=== PATIENT | male | born 2000 | race Caucasian/White ===

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

== ENCOUNTER → 2021-01-26 13:56 | Outpatient (REF) | payer MEDICAID, SELFPAY | LOC: HO.SL 13:56 | PROVIDERS: PCP General Practice; Visit Provider General Practice | DX: Z13.89 Encounter for screening for other disorder (principal) ==

== ENCOUNTER 2021-01-26 22:32 | Emergency (ER) | payer MEDICAID, SELFPAY ==
[2021-01-26 22:40] VITALS: BP 136/82; PULSE 108; RESP 18; TEMP 36.6; O2SAT 97; BMI 53.8
[2021-01-26 22:46] LABS: Glucose, Whole Blood 509 mg/dL (60-115)
[2021-01-26 23:22] LABS: COVID-19 Test Negative (Negative); IDNOW Serial# 08D9AD1C
[2021-01-26] MEDS: 0.9 % Sodium Chloride 1,000 ML 999 ML IVCONT (23:35)
--- NOTE | 2021-01-26 23:35 | ED_ITS ---
HPI - Psych General Chief Complaint: Psychiatric Symptoms <LAYA Duong - Last Filed: 01/27/21 00:33> Stated Complaint: si crisis <LAYA Duong Last Filed: 01/27/21 00:33> Time Seen by Provider: 01/26/21 23:04 <LAYA Duong Last Filed: 01/27/21 00:33> Source: patient and EMS <LAYA Duong Last Filed: 01/27/21 00:33> Mode of arrival: EMS <LAYA Duong Last Filed: 01/27/21 00:33> History of Present Illness HPI Narrative: 20-year-old male with a past medical history of anxiety, asthma, bipolar, depression, PTSD, diabetes noncompliant on medications, BIBA reporting suicidal ideations with plan to jump off of the 4th story balcony. PD was called after patient was found having verbal altercation with Mother pertaining to patients poor management of his diabetes. Patient also reports Patient homicidal ideations toward his mother at this time. Reports he is noncompliant with his metformin, states his glucose has been running in the high 300s. Reports polydipsia and polyuria. Denies fever, chills, cough, CP/SOB, abdominal pain, nausea/vomiting <LAYA Duong Last Filed: 01/27/21 00:33> Related Data Home Medications: Home Medications Medication Instructions Recorded Confirmed Invega Sustenna 234 mg IM Q28D 06/29/20 01/27/21 Previous Rx's Medication Instructions Recorded haloperidol 2 mg PO TID PRN 2 Days #45 tab 12/29/20 insulin glargine [Lantus U-100 80 unit SUBCUT BID #10 ml 12/29/20 Insulin] insulin lispro [Humalog U-100 10 unit SUBCUT QIDACHS #10 ml 12/29/20 Insulin] lorazepam [Ativan] 1 mg PO BID PRN #60 tab 12/29/20 metformin 500 mg PO DAILY@1700 #30 tab 12/29/20 <LAYA Duong Last Filed: 01/27/21 00:33> Allergies/Adverse Reactions: Allergies Allergy/AdvReac Type Severity Reaction Status Date / Time No Known Allergies Allergy Unverified 03/20/20 16:57 [No Known Allergies*] <LAYA Duong - Last Filed: 01/27/21 00:33> Review of Systems Review of Systems: Constitutional: No Fever, No Chills, No Fatigue, No Malaise Cardiovascular: No Chest Pain, No SOB Respiratory: No Cough, No Dyspnea Gastrointestinal: No Nausea, No Vomiting, No Diarrhea, No Constipation, No Abdominal pain Genitourinary: No Dysuria, No Urinary Frequency, No Hematuria, + Urinary Flow Changes Musculoskeletal: No joint pain, No Myalgias, No Joint Swelling Skin: No Skin Lesions, No rash Neuro: No Weakness, No Numbness, No Paresthesias, No Loss of Consciousness, No Dizziness, No Headache Psych: + Depression, + SI, +HI, No Social Issues Endocrine: + Polyuria, + Polydipsia <LAYA Duong - Last Filed: 01/27/21 00:33> Yes all other systems are reviewed and are negative <LAYA Duong - Last Filed: 01/27/21 00:33> [facility] Past Medical History Attestation statement: The following information was validated with the patient. <LAYA Duong - Last Filed: 01/27/21 00:33> Medical History: Medical History (Updated 01/27/21 @ 00:33 by LAYA Duong) Anxiety Asthma Bipolar disorder Bipolar disorder with psychotic features Concussion Depression Depression Diabetes mellitus, type 2 Diabetes type 2, uncontrolled PTSD (post-traumatic stress disorder) <LAYA Duong - Last Filed: 01/27/21 00:33> Social History Social History: Social History Household Members: Family Housing: Apartment Do you presently have visiting nurse or other home services: No Alcohol intake: never Patient Tobacco Use Status: Current everyday Tobacco user Tobacco use type: Cigarette Cigarette Packs Per Day: 1 Cigarettes Per Day: 20.0 Years Smoked: 3 Second Hand Smoke Exposure: No Substance Use Type: Marijuana Advance Directives: No Advance Directives Information Provided: No service: No Sexual orientation: did not discuss. <LAYA Duong - Last Filed: 01/27/21 00:33> Physical Exam Vital Signs: Vital Signs: Last Vital Signs Temp 97.8 F 01/26/21 22:40 Pulse 72 01/27/21 07:50 Resp 18 01/27/21 07:50 BP 145/74 H 01/27/21 07:50 Pulse Ox 95 01/27/21 07:50 Body Mass Index 53.8 <LAYA Duong - Last Filed: 01/27/21 00:33> Vital Signs: Last Vital Signs Temp 97.8 F 01/26/21 22:40 Pulse 72 01/27/21 07:50 Resp 18 01/27/21 07:50 BP 145/74 H 01/27/21 07:50 Pulse Ox 95 01/27/21 07:50 Body Mass Index 53.8 <Daiana Davidson [place] - Last Filed: 01/27/21 08:46> Const: General: cooperative, healthy appearing, comfortable and no acute distress <Claudia Mitchell [place] - Last Filed: 01/27/21 00:33> Orientation/consciousness: patient oriented x3 <LAYA Duong - Last Filed: 01/27/21 00:33> Limitations: no limitations <Claudia Mitchell [place] - Last Filed: 01/27/21 00:33> HENMT: Head: Yes normal to inspection and Yes atraumatic <Claudia Mitchell [place] - Last Filed: 01/27/21 00:33> Ears: hearing grossly normal bilaterally <Claudia Mitchell [place] - Last Filed: 01/27/21 00:33> General nose exam: Normal external nose present <Claudia Mitchell [place] - Last Filed: 01/27/21 00:33> Face and sinus: Yes normal facial exam <LAYA Duong - Last Filed: 01/27/21 00:33> Eyes: General: appearance normal, both eyes and all related structures <Claudia Mitchell [place] - Last Filed: 01/27/21 00:33> EOM: EOMs intact bilaterally <LAYA Duong - Last Filed: 01/27/21 00:33> Neck: Neck: Yes normal visual inspection and Yes no meningeal signs <LAYA Duong - Last Filed: 01/27/21 00:33> Resp: Effort & Inspection: normal respiratory effort <LAYA Duong - Last Filed: 01/27/21 00:33> Auscultation: clear to auscultation bilaterally, no crackles and no wheezes <LAYA Duong - Last Filed: 01/27/21 00:33> Cardio: Rate: regular rate <LAYA Duong Last Filed: 01/27/21 00:33> Heart sounds: S1 normal heart sound present and S2 normal heart sound present <LAYA Duong - Last Filed: 01/27/21 00:33> GI: Inspection: Yes normal to inspection <LAYA Duong - Last Filed: 01/27/21 00:33> Palpation (GI): Soft to palpation, nontender, no guarding and not rigid <LAYA Duong - Last Filed: 01/27/21 00:33> Skin: Rashes: no rashes <LAYA Duong - Last Filed: 01/27/21 00:33> Wounds: no wounds <LAYA Duong - Last Filed: 01/27/21 00:33> Neuro: General: patient oriented x3 and no meningeal signs <LAYA Duong - Last Filed: 01/27/21 00:33> Gait exam (Neuro): Normal gait present <LAYA Duong Last Filed: 01/27/21 00:33> Extrem: General: Yes normal to inspection <LAYA Duong - Last Filed: 01/27/21 00:33> Psych: Thought content: Suicidality present and Homicidality present <LAYA Duong - Last Filed: 01/27/21 00:33> Course Course Course Narrative: -mild leukocytosis of 11.1 with a pH of 7.4 bicarb chronically low, no anion gap -ALT chronically elevated, acetone negative > 10 units of IV insulin ordered -0100-- ED care transferred to Dr. William pending glucose monitoring/recheck, and MARIANO decker <LAYA Duong - Last Filed: 01/27/21 00:33> MDM - Psych MDM Narrative Medical decision making narrative: 20-year-old male with a past medical history of anxiety, asthma, bipolar, depression, PTSD, diabetes noncompliant on medications, BIBA reporting suicidal ideations with plan to jump off of the 4th story augustine. POC 509 upon ED arrival. Patient tachycardic to 108, NAD/nontoxic appearing, abdomen soft/nontender. Concern for hyperglycemia due to noncompliance vs DKA vs metabolic/infectious etiology. Plan: Labs, UA, 2L IVF, insulin, BHN evaluation <LAYA Duong - Last Filed: 01/27/21 00:33> Medical Records Attestation: I reviewed the patient's medical records. <LAYA Duong - Last Filed: 01/27/21 00:33> Lab Data Attestation: I reviewed the patient's lab results. <LAYA Duong - Last Filed: 01/27/21 00:33> Result diagrams: : 01/26/21 23:34 01/26/21 23:34 <LAYA Duong - Last Filed: 01/27/21 00:33> Labs: Lab Results 01/26/21 01/26/21 01/26/21 Range/Units 22:42 22:54 23:12 WBC (4.8-10.8) X10*3/uL RBC (4.60-5.80) X10*6/uL Hgb (14.0-18.0) g/dl Hct (42-52) % MCV (80-98) fL MCH (27.0-33.0) pg MCHC (31.0-36.0) g/dl RDW (11.0-16.0) % Plt Count (160-400) X10*3/uL MPV (9.4-12.4) fL Immature Gran % (Auto) (0.0-0.4) % Neut % (Auto) (45-73) % Lymph % (Auto) (20-40) % [place] % (Auto) (2-11) % Eos % (Auto) (0-4) % Baso % (Auto) (0-2) % Lymph # (Auto) (1.2-4.9) X10*3/uL [place] # (Auto) (0.1-1.2) X10*3/uL Eos # (Auto) (0.0-0.4) X10*3/uL Baso # (Auto) (0.0-0.2) X10*3/uL Abs Immat Gran (auto) (0.00-0.03) X10*3/uL Absolute Neuts (auto) (2.0-8.3) X10*3/uL Absolute Nucleated RBC (0.0-0.012) X10*3/uL Nucleated RBC % (auto) (0.0-0.2) /100WBC VBG pH (7.32-7.43) VBG pCO2 mmHg VBG pO2 mmHg VBG HCO3 (22-26) mmol/L VBG O2 Saturation % VBG Base Excess Sodium (135-145) mmol/L Potassium (3.3-5.1) mmol/L Chloride (96-108) mmol/L Carbon Dioxide (22-29) mmol/L Anion Gap (12-20) BUN (9-16) mg/dL Creatinine (0.5-1.4) mg/dL Estim Creat Clear Calc Estimated GFR POC Glucose 509 H* (60-115) mg/dL Random Glucose (60-115) mg/dL Calcium (8.4-10.2) mg/dL Magnesium (1.6-2.6) mg/dL Total Bilirubin (0.0-1.0) mg/dL Direct Bilirubin (0.0-0.5) mg/dL AST (5-37) U/L ALT (0-40) U/L Alkaline Phosphatase (39-117) U/L Total Protein (6.5-8.0) g/dL Albumin (3.5-5.0) g/dL Urine Opiates Screen Not Detected (Not Detect) Ur Barbiturates Screen Not Detected (Not Detect) Ur Phencyclidine Scrn Not Detected (Not Detect) Ur Amphetamines Screen Not Detected (Not Detect) U Benzodiazepines Scrn Not Detected (Not Detect) Urine Cocaine Screen Not Detected (Not Detect) U Marijuana (THC) Screen Not Detected (Not Detect) Acetone, Qual (Negative) COVID-19 ([facility]) Negative (Negative) COVID-19 Clin Com See Note 01/26/21 01/26/21 01/26/21 Range/Units 23:34 23:34 23:36 WBC 11.1 H (4.8-10.8) X10*3/uL RBC 5.47 (4.60-5.80) X10*6/uL Hgb 15.8 (14.0-18.0) g/dl Hct 45.2 (42-52) % MCV 82.6 (80-98) fL MCH 28.9 (27.0-33.0) pg MCHC 35.0 (31.0-36.0) g/dl RDW 12.3 (11.0-16.0) % Plt Count 242 (160-400) X10*3/uL MPV 11.6 (9.4-12.4) fL Immature Gran % (Auto) 0.4 (0.0-0.4) % Neut % (Auto) 56.1 (45-73) % Lymph % (Auto) 33.0 (20-40) % [place] % (Auto) 8.8 (2-11) % Eos % (Auto) 1.4 (0-4) % Baso % (Auto) 0.3 (0-2) % Lymph # (Auto) 3.7 (1.2-4.9) X10*3/uL [place] # (Auto) 1.0 (0.1-1.2) X10*3/uL Eos # (Auto) 0.2 (0.0-0.4) X10*3/uL Baso # (Auto) 0.0 (0.0-0.2) X10*3/uL Abs Immat Gran (auto) 0.04 H (0.00-0.03) X10*3/uL Absolute Neuts (auto) 6.3 (2.0-8.3) X10*3/uL Absolute Nucleated RBC 0.000 (0.0-0.012) X10*3/uL Nucleated RBC % (auto) 0.0 (0.0-0.2) /100WBC VBG pH 7.42 (7.32-7.43) VBG pCO2 30 mmHg VBG pO2 145 mmHg VBG HCO3 20 L (22-26) mmol/L VBG O2 Saturation 100.0 % VBG Base Excess Not Reportable Sodium 136 (135-145) mmol/L Potassium 4.0 (3.3-5.1) mmol/L Chloride 102 (96-108) mmol/L Carbon Dioxide 20 L (22-29) mmol/L Anion Gap 18 (12-20) BUN 14 (9-16) mg/dL Creatinine 1.24 (0.5-1.4) mg/dL Estim Creat Clear Calc 151.5 Estimated GFR > 60 POC Glucose (60-115) mg/dL Random Glucose 487 H* (60-115) mg/dL Calcium 9.6 D (8.4-10.2) mg/dL Magnesium 1.7 (1.6-2.6) mg/dL Total Bilirubin 0.3 (0.0-1.0) mg/dL Direct Bilirubin < 0.2 (0.0-0.5) mg/dL AST 25 (5-37) U/L ALT 47 H (0-40) U/L Alkaline Phosphatase 127 H (39-117) U/L Total Protein 7.2 (6.5-8.0) g/dL Albumin 4.0 (3.5-5.0) g/dL Urine Opiates Screen (Not Detect) Ur Barbiturates Screen (Not Detect) Ur Phencyclidine Scrn (Not Detect) Ur Amphetamines Screen (Not Detect) U Benzodiazepines Scrn (Not Detect) Urine Cocaine Screen (Not Detect) U Marijuana (THC) Screen (Not Detect) Acetone, Qual Negative (Negative) COVID-19 ([facility]) (Negative) COVID-19 Clin Com 01/27/21 01/27/21 01/27/21 Range/Units 02:05 04:18 07:28 WBC (4.8-10.8) X10*3/uL RBC (4.60-5.80) X10*6/uL Hgb (14.0-18.0) g/dl Hct (42-52) % MCV (80-98) fL MCH (27.0-33.0) pg MCHC (31.0-36.0) g/dl RDW (11.0-16.0) % Plt Count (160-400) X10*3/uL MPV (9.4-12.4) fL Immature Gran % (Auto) (0.0-0.4) % Neut % (Auto) (45-73) % Lymph % (Auto) (20-40) % [place] % (Auto) (2-11) % Eos % (Auto) (0-4) % Baso % (Auto) (0-2) % Lymph # (Auto) (1.2-4.9) X10*3/uL [place] # (Auto) (0.1-1.2) X10*3/uL Eos # (Auto) (0.0-0.4) X10*3/uL Baso # (Auto) (0.0-0.2) X10*3/uL Abs Immat Gran (auto) (0.00-0.03) X10*3/uL Absolute Neuts (auto) (2.0-8.3) X10*3/uL Absolute Nucleated RBC (0.0-0.012) X10*3/uL Nucleated RBC % (auto) (0.0-0.2) /100WBC VBG pH (7.32-7.43) VBG pCO2 mmHg VBG pO2 mmHg VBG HCO3 (22-26) mmol/L VBG O2 Saturation % VBG Base Excess Sodium (135-145) mmol/L Potassium (3.3-5.1) mmol/L Chloride (96-108) mmol/L Carbon Dioxide (22-29) mmol/L Anion Gap (12-20) BUN (9-16) mg/dL Creatinine (0.5-1.4) mg/dL Estim Creat Clear Calc Estimated GFR POC Glucose 231 H 295 H 336 H (60-115) mg/dL Random Glucose (60-115) mg/dL Calcium (8.4-10.2) mg/dL Magnesium (1.6-2.6) mg/dL Total Bilirubin (0.0-1.0) mg/dL Direct Bilirubin (0.0-0.5) mg/dL AST (5-37) U/L ALT (0-40) U/L Alkaline Phosphatase (39-117) U/L Total Protein (6.5-8.0) g/dL Albumin (3.5-5.0) g/dL Urine Opiates Screen (Not Detect) Ur Barbiturates Screen (Not Detect) Ur Phencyclidine Scrn (Not Detect) Ur Amphetamines Screen (Not Detect) U Benzodiazepines Scrn (Not Detect) Urine Cocaine Screen (Not Detect) U Marijuana (THC) Screen (Not Detect) Acetone, Qual (Negative) COVID-19 ([facility]) (Negative) COVID-19 Clin Com <LAYA Duong - Last Filed: 01/27/21 00:33> Lab Results 01/26/21 01/26/21 01/26/21 Range/Units 22:42 22:54 23:12 WBC (4.8-10.8) X10*3/uL RBC (4.60-5.80) X10*6/uL Hgb (14.0-18.0) g/dl Hct (42-52) % MCV (80-98) fL MCH (27.0-33.0) pg MCHC (31.0-36.0) g/dl RDW (11.0-16.0) % Plt Count (160-400) X10*3/uL MPV (9.4-12.4) fL Immature Gran % (Auto) (0.0-0.4) % Neut % (Auto) (45-73) % Lymph % (Auto) (20-40) % [place] % (Auto) (2-11) % Eos % (Auto) (0-4) % Baso % (Auto) (0-2) % Lymph # (Auto) (1.2-4.9) X10*3/uL [place] # (Auto) (0.1-1.2) X10*3/uL Eos # (Auto) (0.0-0.4) X10*3/uL Baso # (Auto) (0.0-0.2) X10*3/uL Abs Immat Gran (auto) (0.00-0.03) X10*3/uL Absolute Neuts (auto) (2.0-8.3) X10*3/uL Absolute Nucleated RBC (0.0-0.012) X10*3/uL Nucleated RBC % (auto) (0.0-0.2) /100WBC VBG pH (7.32-7.43) VBG pCO2 mmHg VBG pO2 mmHg VBG HCO3 (22-26) mmol/L VBG O2 Saturation % VBG Base Excess Sodium (135-145) mmol/L Potassium (3.3-5.1) mmol/L Chloride (96-108) mmol/L Carbon Dioxide (22-29) mmol/L Anion Gap (12-20) BUN (9-16) mg/dL Creatinine (0.5-1.4) mg/dL Estim Creat Clear Calc Estimated GFR POC Glucose 509 H* (60-115) mg/dL Random Glucose (60-115) mg/dL Calcium (8.4-10.2) mg/dL Magnesium (1.6-2.6) mg/dL Total Bilirubin (0.0-1.0) mg/dL Direct Bilirubin (0.0-0.5) mg/dL AST (5-37) U/L ALT (0-40) U/L Alkaline Phosphatase (39-117) U/L Total Protein (6.5-8.0) g/dL Albumin (3.5-5.0) g/dL Urine Opiates Screen Not Detected (Not Detect) Ur Barbiturates Screen Not Detected (Not Detect) Ur Phencyclidine Scrn Not Detected (Not Detect) Ur Amphetamines Screen Not Detected (Not Detect) U Benzodiazepines Scrn Not Detected (Not Detect) Urine Cocaine Screen Not Detected (Not Detect) U Marijuana (THC) Screen Not Detected (Not Detect) Acetone, Qual (Negative) COVID-19 ([facility]) Negative (Negative) COVID-19 Clin Com See Note 01/26/21 01/26/21 01/26/21 Range/Units 23:34 23:34 23:36 WBC 11.1 H (4.8-10.8) X10*3/uL RBC 5.47 (4.60-5.80) X10*6/uL Hgb 15.8 (14.0-18.0) g/dl Hct 45.2 (42-52) % MCV 82.6 (80-98) fL MCH 28.9 (27.0-33.0) pg MCHC 35.0 (31.0-36.0) g/dl RDW 12.3 (11.0-16.0) % Plt Count 242 (160-400) X10*3/uL MPV 11.6 (9.4-12.4) fL Immature Gran % (Auto) 0.4 (0.0-0.4) % Neut % (Auto) 56.1 (45-73) % Lymph % (Auto) 33.0 (20-40) % [place] % (Auto) 8.8 (2-11) % Eos % (Auto) 1.4 (0-4) % Baso % (Auto) 0.3 (0-2) % Lymph # (Auto) 3.7 (1.2-4.9) X10*3/uL [place] # (Auto) 1.0 (0.1-1.2) X10*3/uL Eos # (Auto) 0.2 (0.0-0.4) X10*3/uL Baso # (Auto) 0.0 (0.0-0.2) X10*3/uL Abs Immat Gran (auto) 0.04 H (0.00-0.03) X10*3/uL Absolute Neuts (auto) 6.3 (2.0-8.3) X10*3/uL Absolute Nucleated RBC 0.000 (0.0-0.012) X10*3/uL Nucleated RBC % (auto) 0.0 (0.0-0.2) /100WBC VBG pH 7.42 (7.32-7.43) VBG pCO2 30 mmHg VBG pO2 145 mmHg VBG HCO3 20 L (22-26) mmol/L VBG O2 Saturation 100.0 % VBG Base Excess Not Reportable Sodium 136 (135-145) mmol/L Potassium 4.0 (3.3-5.1) mmol/L Chloride 102 (96-108) mmol/L Carbon Dioxide 20 L (22-29) mmol/L Anion Gap 18 (12-20) BUN 14 (9-16) mg/dL Creatinine 1.24 (0.5-1.4) mg/dL Estim Creat Clear Calc 151.5 Estimated GFR > 60 POC Glucose (60-115) mg/dL Random Glucose 487 H* (60-115) mg/dL Calcium 9.6 D (8.4-10.2) mg/dL Magnesium 1.7 (1.6-2.6) mg/dL Total Bilirubin 0.3 (0.0-1.0) mg/dL Direct Bilirubin < 0.2 (0.0-0.5) mg/dL AST 25 (5-37) U/L ALT 47 H (0-40) U/L Alkaline Phosphatase 127 H (39-117) U/L Total Protein 7.2 (6.5-8.0) g/dL Albumin 4.0 (3.5-5.0) g/dL Urine Opiates Screen (Not Detect) Ur Barbiturates Screen (Not Detect) Ur Phencyclidine Scrn (Not Detect) Ur Amphetamines Screen (Not Detect) U Benzodiazepines Scrn (Not Detect) Urine Cocaine Screen (Not Detect) U Marijuana (THC) Screen (Not Detect) Acetone, Qual Negative (Negative) COVID-19 ([facility]) (Negative) COVID-19 Clin Com 01/27/21 01/27/21 01/27/21 Range/Units 02:05 04:18 07:28 WBC (4.8-10.8) X10*3/uL RBC (4.60-5.80) X10*6/uL Hgb (14.0-18.0) g/dl Hct (42-52) % MCV (80-98) fL MCH (27.0-33.0) pg MCHC (31.0-36.0) g/dl RDW (11.0-16.0) % Plt Count (160-400) X10*3/uL MPV (9.4-12.4) fL Immature Gran % (Auto) (0.0-0.4) % Neut % (Auto) (45-73) % Lymph % (Auto) (20-40) % [place] % (Auto) (2-11) % Eos % (Auto) (0-4) % Baso % (Auto) (0-2) % Lymph # (Auto) (1.2-4.9) X10*3/uL [place] # (Auto) (0.1-1.2) X10*3/uL Eos # (Auto) (0.0-0.4) X10*3/uL Baso # (Auto) (0.0-0.2) X10*3/uL Abs Immat Gran (auto) (0.00-0.03) X10*3/uL Absolute Neuts (auto) (2.0-8.3) X10*3/uL Absolute Nucleated RBC (0.0-0.012) X10*3/uL Nucleated RBC % (auto) (0.0-0.2) /100WBC VBG pH (7.32-7.43) VBG pCO2 mmHg VBG pO2 mmHg VBG HCO3 (22-26) mmol/L VBG O2 Saturation % VBG Base Excess Sodium (135-145) mmol/L Potassium (3.3-5.1) mmol/L Chloride (96-108) mmol/L Carbon Dioxide (22-29) mmol/L Anion Gap (12-20) BUN (9-16) mg/dL Creatinine (0.5-1.4) mg/dL Estim Creat Clear Calc Estimated GFR POC Glucose 231 H 295 H 336 H (60-115) mg/dL Random Glucose (60-115) mg/dL Calcium (8.4-10.2) mg/dL Magnesium (1.6-2.6) mg/dL Total Bilirubin (0.0-1.0) mg/dL Direct Bilirubin (0.0-0.5) mg/dL AST (5-37) U/L ALT (0-40) U/L Alkaline Phosphatase (39-117) U/L Total Protein (6.5-8.0) g/dL Albumin (3.5-5.0) g/dL Urine Opiates Screen (Not Detect) Ur Barbiturates Screen (Not Detect) Ur Phencyclidine Scrn (Not Detect) Ur Amphetamines Screen (Not Detect) U Benzodiazepines Scrn (Not Detect) Urine Cocaine Screen (Not Detect) U Marijuana (THC) Screen (Not Detect) Acetone, Qual (Negative) COVID-19 ([facility]) (Negative) COVID-19 Clin Com <LAYA Barker - Last Filed: 01/27/21 08:46> Discharge Plan Discharge Clinical Impression: Acute hyperglycemia, Suicidal ideations <LAYA Duong - Last Filed: 01/27/21 00:33> Prescriptions: No Action Invega Sustenna 234 mg/1.5 mL Syringe 234 mg IM Q28D RF: 0 Lantus U-100 Insulin 100 unit/mL Solution 80 unit subcut BID Qty: 10 RF: 0 insulin lispro [Humalog U-100 Insulin] 100 unit/mL Solution 10 unit subcut QIDACHS Qty: 10 RF: 0 metformin 500 mg Tablet Extended Release 24 Hr 500 mg PO DAILY@1700 Qty: 30 RF: 0 haloperidol 2 mg tablet 2 mg PO TID PRN (Reason: agitation) 2 Days Qty: 45 RF: 1 lorazepam [Ativan] 1 mg tablet 1 mg PO BID PRN (Reason: anxiety) Qty: 60 RF: 0 <LAYA Duong - Last Filed: 01/27/21 00:33> ED Observation ED Observation Progress Notes 1: Progress Note: 01/27/21 - 08:41 LAYA Barker - physician observation continued. Patient mildly hypertensive at 145/74 otherwise all other vitals are within normal limits. Patient had uneventful night. His blood glucose levels are being controlled with sub cutaneous insulin . Otherwise patient is currently awake, alert and oriented x3. Not in any acute distress. Reports thoughts of SI and HI and has a plan to jump off the 4th floor at home. He also states that he has many people at his house not want to kill him although he is very vague and does not want to say why. He also does not say the plan of harming the people of his home. He reports he also has another plan for self-harm but does not want to stated. Otherwise patient denies any additional complaints or concerns at this time and is currently awaiting crisis evaluation will continue to monitor. <LAYA Barker - Last Filed: 01/27/21 08:46>
[2021-01-26 23:39] LABS: MANUAL DIFF FLAG NO
[2021-01-26 23:40] LABS: Amphetamine Screen Urine Not Detected (Not Detect); Barbiturates, Urine Not Detected (Not Detect); Benzodiazepines Screen Urine Not Detected (Not Detect); Cannabinoid Screen Urine Not Detected (Not Detect); Cocaine Screen Urine Not Detected (Not Detect); Opiate Screen Urine Not Detected (Not Detect); Phencyclidine Screen Urine Not Detected (Not Detect)
[2021-01-26 23:40] LABS: Basophils Percent Auto 0.3 % (0-2); Eosinophils Absolute Auto 0.2 X10*3/uL (0.0-0.4); Eosinophils Percent Auto 1.4 % (0-4); Hematocrit 45.2 % (42-52); Hemoglobin 15.8 g/dl (14.0-18.0); Imm Gran Abs Auto 0.04 X10*3/uL (0.00-0.03); Imm Gran Pct Auto 0.4 % (0.0-0.4); Lymphocytes Absolute Auto 3.7 X10*3/uL (1.2-4.9); Mean Corpuscular Hemoglobin 28.9 pg (27.0-33.0); Mean Corpuscular Volume 82.6 fL (80-98); Mean Platelet Volume 11.6 fL (9.4-12.4); Monocytes Percent Auto 8.8 % (2-11); Neutrophils Absolute Auto 6.3 X10*3/uL (2.0-8.3); Neutrophils Percent Auto 56.1 % (45-73); Platelet Count 242 X10*3/uL (160-400); Red Blood Count 5.47 X10*6/uL (4.60-5.80); Red Cell Distribution Width 12.3 % (11.0-16.0); White Blood Count 11.1 X10*3/uL (4.8-10.8)
[2021-01-26 23:43] LABS: Venous Blood Gas Refer to POC result
[2021-01-26 23:44] LABS: VBG HCO3 20 mmol/L (22-26); VBG pCO2 30 mmHg; VBG pH 7.42 (7.32-7.43); VBG pO2 145 mmHg
[2021-01-26 23:56] LABS: Acetone, serum QL Negative (Negative)
[2021-01-27 00:12] LABS: Alanine Aminotransferase 47 U/L (0-40); Alkaline Phosphatase 127 U/L (39-117); Anion Gap 18 (12-20); Aspartate Amino Transferase 25 U/L (5-37); Bilirubin Direct < 0.2 mg/dL (0.0-0.5); Bilirubin Total 0.3 mg/dL (0.0-1.0); Blood Urea Nitrogen 14 mg/dL (9-16); Calcium 9.6 mg/dL (8.4-10.2); Carbon Dioxide 20 mmol/L (22-29); Chloride 102 mmol/L (96-108); Creatinine Clr Calc Pharmacy 151.5; Estimated Glomerular Filt Rate > 60; Glucose Random 487 mg/dL (60-115); Magnesium 1.7 mg/dL (1.6-2.6); Sodium 136 mmol/L (135-145); Total Protein 7.2 g/dL (6.5-8.0)
[2021-01-27] MEDS: 0.9 % Sodium Chloride 1,000 ML 999 ML IVCONT (00:55)
[2021-01-27] MEDS: Insulin Regular, Human 100 UNIT/ML 3 ML VIAL 10 UNIT IVPUSH (00:58)
--- NOTE | 2021-01-27 02:10 | PC.NURSE ---
PT'S POC 231 FOLLOWING IV REGULAR INSULIN AND 1 L NS BOLUS. SPOKE WITH MD ABOUT ADMINISTRATION OF LANTUS 80 UNITS, SHE WANTS TO PROCEED WITH SQ LANTUS.
[2021-01-27 02:11] LABS: Glucose, Whole Blood 231 mg/dL (60-115)
[2021-01-27] MEDS: Insulin Glargine,Hum.rec.anlog 100 UNIT/ML 10 ML VIAL 80 UNIT SUBCUT ×3 (02:28→20:40)
--- NOTE | 2021-01-27 02:37 | PC.NURSE ---
provided meal to patient, pt to remain in the main er until bed in pod available.
[2021-01-27 04:20] VITALS: PULSE 68; RESP 16; O2SAT 98
[2021-01-27 04:22] LABS: Glucose, Whole Blood 295 mg/dL (60-115)
--- NOTE | 2021-01-27 07:19 | PHA.MEDREC ---
Pharmacy Consult ? Medication Reconciliation Pharmacy has completed the medication reconciliation.
[2021-01-27 07:39] LABS: Glucose, Whole Blood 336 mg/dL (60-115)
[2021-01-27] MEDS: Insulin Lispro 100 UNIT/ML 3 ML VIAL 10 UNIT SUBCUT ×5 (07:39→20:52)
--- NOTE | 2021-01-27 07:40 | PC.NURSE ---
Pt alert and oriented x3. Pt states he is having thoughts of SI and HI and has a plan to jump off the 4th floor at home. He also states there are a lot of people in his home that he wants to kill. Pt refuses to state reason or if he has a plan to harm the people in his home. Pt states he has another plan to harm self but he will not say at this time. This abstract writer will contact crisis team for consult and place pt on 1:1 observation. Pt ate breakfast and is currently resting quietly.
[2021-01-27 07:50] VITALS: BP 145/74; PULSE 72; RESP 18; O2SAT 95
--- NOTE | 2021-01-27 09:53 | PC.NURSE ---
BHN consult submitted online.
--- NOTE | 2021-01-27 11:00 | PC.NURSE ---
called [facility] and spoke to lucinda to let them know that pt's is medically clear
[2021-01-27 11:02] LABS: Glucose, Whole Blood 297 mg/dL (60-115)
--- NOTE | 2021-01-27 11:11 | MHC.CARE ---
1045 Spoke to Emy, intact coordinator at [facility], about this patient's referral. She stated that it appears patient is not medically cleared, she can call with an ETA following clearance.
--- NOTE | 2021-01-27 13:18 | PC.NURSE ---
pt resting in the stretcher, calm and cooperative, pt still reports that he wants to hurt himself.
--- NOTE | 2021-01-27 13:34 | MHC.CARE ---
CARE team spoke with N, they are unable to send a clinician for several hours. Plan is for pt to remain in ED awaiting crisis assessment, as CARE Team is unable to conduct assessment due to pt being a part of the [facility] program.
[2021-01-27 14:06] VITALS: BP 119/59; PULSE 89; RESP 18; TEMP 36.5; O2SAT 95
--- NOTE | 2021-01-27 16:35 | PC.NURSE ---
called [facility] again to follow up on their arrival time, this rn was told sometimes this evening
[2021-01-27 18:12] LABS: Glucose, Whole Blood 396 mg/dL (60-115)
[2021-01-27 18:37] VITALS: BP 126/57; PULSE 74; RESP 20; O2SAT 95
[2021-01-27 20:26] VITALS: BP 139/70; PULSE 92; RESP 20; TEMP 36.5; O2SAT 97
[2021-01-27 20:28] LABS: Glucose, Whole Blood 451 mg/dL (60-115)
[2021-01-27] MEDS: LORazepam 1 MG TABLET PO (20:29)
[2021-01-27] MEDS: HaloperidoL 1 MG TABLET 2 MG PO (20:29)
--- NOTE | 2021-01-27 20:49 | PC.NURSE ---
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
[2021-01-27] MEDS: Nicotine Polacrilex 2 MG GUM BUCCAL (20:55)
[2021-01-28 02:12] VITALS: BP 110/50; PULSE 73; RESP 19; TEMP 36.7; O2SAT 94
[2021-01-28 02:12] LABS: Glucose, Whole Blood 262 mg/dL (60-115)
--- NOTE | 2021-01-28 06:37 | PC.NURSE ---
Patient slept through the night, no distress observed/reported, 2 am POC was 262, patient is awaiting to be seen by [facility] in the morning, behavior appropriate, patient needs some control on food consumption, VSS, will continue to monitor.
[2021-01-28 07:19] LABS: Glucose, Whole Blood 291 mg/dL (60-115)
[2021-01-28] MEDS: Insulin Lispro 100 UNIT/ML 3 ML VIAL 15 UNIT SUBCUT ×4 (07:21→22:01)
--- NOTE | 2021-01-28 07:32 | PC.NURSE ---
report taken from jacky guerra pt here for si statements, has had medical workup d/t high poc glucose yesterday. pt has been medically cleared, awaiting n eval. ambulating to bathroom w steady gait, asking this rn about when n clinician will be here to evaluate him, pt told that per previous shift rn, n would have clinician sometime today to see him, will f/u w n for time estimate. rr even/unlabored. ate all of breakfast, calm and cooperative w insulin admin. wctm.
[2021-01-28 08:29] VITALS: BP 123/55; PULSE 76; RESP 18; O2SAT 95
[2021-01-28] MEDS: Insulin Glargine,Hum.rec.anlog 100 UNIT/ML 10 ML VIAL 80 UNIT SUBCUT ×2 (08:55→21:56)
--- NOTE | 2021-01-28 13:23 | PC.NURSE ---
pt continues to await [facility] eval, taking medications as ordered. tolerating po w/o issue. given hardcover book in locker to read, checked for contraband.
[2021-01-28] MEDS: Nicotine Polacrilex 2 MG GUM BUCCAL ×2 (13:59→16:30)
[2021-01-28] MEDS: Acetaminophen 325 MG TABLET 650 MG PO (13:59)
--- NOTE | 2021-01-28 14:22 | PC.NURSE ---
[facility] at bedside for eval of pt
--- NOTE | 2021-01-28 14:32 | MHC.CARE ---
1300-Met with pt as he has grown agitated.? Pt expressed his frustration with the long wait and asks why he has waited so long and the reasons why.? CARE Team explained the reasons why he had been waiting as long as he has.? Pt stated that he and his Mother were engaged in an argument where she told him she no longer ?Needed? him ?for my money?.? He grew upset and was going to jump from the balcony.? Pt stated that he no longer feels suicidal and wishes to leave if he was not going to be seen in a timely fashion.? Pt vented his frustrations further, saying ?I should have jumped? before growing silent.? Pt would no longer engage.
[2021-01-28 16:24] VITALS: BP 134/76; PULSE 92; RESP 18; TEMP 36.5; O2SAT 97
[2021-01-28 17:02] LABS: Glucose, Whole Blood 523 mg/dL (60-115)
--- NOTE | 2021-01-28 17:09 | PC.NURSE ---
Pre-dinner POC initially 523, repeat POC 485. Provider aware, awaiting further orders at this time.
[2021-01-28 17:11] LABS: Glucose, Whole Blood 485 mg/dL (60-115)
[2021-01-28] MEDS: LORazepam 1 MG TABLET PO (18:01)
[2021-01-28 18:51] LABS: Glucose, Whole Blood 387 mg/dL (60-115)
[2021-01-28] MEDS: metFORMIN HCl ER 500 MG TAB.ER.24H PO (19:10)
[2021-01-28 21:46] LABS: Glucose, Whole Blood 379 mg/dL (60-115)
--- NOTE | 2021-01-28 22:25 | PC.NURSE ---
Patient POC was 379 @ 4733, scheduled 15 units of Humalog administered along with scheduled 80 units of Lantus, provider notified/ordered POC at 2300, will continue to monitor. i
[2021-01-28 23:05] LABS: Glucose, Whole Blood 391 mg/dL (60-115)
[2021-01-29 00:37] VITALS: RESP 18
--- NOTE | 2021-01-29 06:31 | PC.NURSE ---
Patient slept through the night, med compliant POC at baseline, needs lot of redirection related to food consumption, patient got extremely agitated when got woken up for POC check at 2300 per provider's order, patient was educated the importance of POC check instead patient threatens staff member if he gets woken up again in the middle of the night, PRN Haldol administered as ordered with + effect, will continue to monitor.
[2021-01-29] MEDS: Insulin Lispro 100 UNIT/ML 3 ML VIAL 15 UNIT SUBCUT ×4 (07:21→20:50)
[2021-01-29 07:23] LABS: Glucose, Whole Blood 239 mg/dL (60-115)
[2021-01-29] MEDS: Insulin Glargine,Hum.rec.anlog 100 UNIT/ML 10 ML VIAL 80 UNIT SUBCUT ×2 (09:00→20:50)
[2021-01-29 09:09] VITALS: BP 151/82; PULSE 88; RESP 17; TEMP 36.1; O2SAT 97
[2021-01-29 11:51] LABS: Glucose, Whole Blood 268 mg/dL (60-115)
[2021-01-29] MEDS: LORazepam 1 MG TABLET PO (11:57)
[2021-01-29] MEDS: HaloperidoL 1 MG TABLET 2 MG PO (13:31)
[2021-01-29 15:48] VITALS: BP 146/87; PULSE 77; RESP 15; TEMP 36.1; O2SAT 94
[2021-01-29] MEDS: Nicotine Polacrilex 2 MG GUM BUCCAL ×2 (16:12→18:24)
[2021-01-29 17:53] LABS: Glucose, Whole Blood 305 mg/dL (60-115)
[2021-01-29] MEDS: metFORMIN HCl ER 500 MG TAB.ER.24H PO (18:23)
[2021-01-29 20:48] LABS: Glucose, Whole Blood 432 mg/dL (60-115)
== END 2021-01-29 20:56 | disposition home or self-care (01) ==
PROVIDERS: Physician Assistant; Emergency Provider Student in an Organized Health Care Education/Training Program
DX: E11.65 Type 2 diabetes mellitus with hyperglycemia (principal); R45.851 Suicidal ideations; R45.850 Homicidal ideations; D72.829 Elevated white blood cell count, unspecified; R00.0 Tachycardia, unspecified; I95.9 Hypotension, unspecified; F31.9 Bipolar disorder, unspecified; F41.9 Anxiety disorder, unspecified; F43.10 Post-traumatic stress disorder, unspecified; F17.210 Nicotine dependence, cigarettes, uncomplicated; F12.90 Cannabis use, unspecified, uncomplicated; Z91.14 Patient's other noncompliance with medication regimen; Z20.822 Contact with and (suspected) exposure to COVID-19
CPT/HCPCS: 36415; 80048; 80076; 80307; 82009; 82803; 82947; 83735; 85025; 87635; 96360; 96372; 96374; 99285

== ENCOUNTER 2021-02-28 12:14 | Emergency (ER) | payer MEDICAID, SELFPAY ==
--- NOTE | ~2021-02-28 | XR_ITS ---
EXAMINATION: 1. RADIOGRAPHS RIGHT SHOULDER 2. RADIOGRAPHS RIGHT HAND CLINICAL INFORMATION: Limited shoulder range of motion. Punched wall. COMPARISON: Right shoulder x-ray August 30, 2018 and right hand x-rays November 20, 2018 TECHNIQUE: 3 views of the right shoulder and 3 views of the right hand were obtained. FINDINGS: Right shoulder: Visualized portion of the proximal right humerus demonstrate no fracture. Humeral head demonstrates good articulation with the glenoid fossa. Unremarkable acromioclavicular joint. Visualized right-sided ribs and lung parenchyma are also unremarkable. Right hand: Visualized portion of the distal radius and ulna demonstrate no fracture. Carpal rows are well aligned without carpal bone fracture. No metacarpal or phalangeal fracture. No focal soft tissue swelling of the hand. No radiopaque foreign body. No appreciable degenerative changes. XR/XR hand RT 2V IMPRESSION: No gross abnormality of the right shoulder or right hand.
--- NOTE | ~2021-02-28 | XR_ITS ---
EXAMINATION: 1. RADIOGRAPHS RIGHT SHOULDER 2. RADIOGRAPHS RIGHT HAND CLINICAL INFORMATION: Limited shoulder range of motion. Punched wall. COMPARISON: Right shoulder x-ray August 30, 2018 and right hand x-rays November 20, 2018 TECHNIQUE: 3 views of the right shoulder and 3 views of the right hand were obtained. FINDINGS: Right shoulder: Visualized portion of the proximal right humerus demonstrate no fracture. Humeral head demonstrates good articulation with the glenoid fossa. Unremarkable acromioclavicular joint. Visualized right-sided ribs and lung parenchyma are also unremarkable. Right hand: Visualized portion of the distal radius and ulna demonstrate no fracture. Carpal rows are well aligned without carpal bone fracture. No metacarpal or phalangeal fracture. No focal soft tissue swelling of the hand. No radiopaque foreign body. No appreciable degenerative changes. XR/XR shoulder RT min 2V IMPRESSION: No gross abnormality of the right shoulder or right hand.
[2021-02-28 12:50] VITALS: BP 136/48; PULSE 84; RESP 18; TEMP 37; O2SAT 97; BMI 53.1
--- NOTE | 2021-02-28 14:00 | ED.EXTPRO ---
HPI - Extremity Problem General Chief complaint: Extremity Injury, Upper Stated complaint: rt arm & shoulder pain Time Seen by Provider: 02/28/21 12:31 Source: patient Mode of arrival: ambulatory History of Present Illness HPI Narrative: 20-year-old male with past medical history of anxiety, asthma, bipolar, depression, diabetes, PTSD, presenting to the ED complaining of right hand and shoulder pain s/p punching a wooden door on Tuesday. Also reports left foot pain x a while secondary to standing on feet and walking for long periods of time. Denies fever, chills, numbness, tingling, weakness MD Complaint: extremity pain and extremity swelling Related Data Home Medications Medication Instructions Recorded Confirmed paliperidone palmitate 234 mg/1.5 234 mg IM Q28D 06/29/20 01/27/21 mL intramuscular syringe (Invega Sustenna) Previous Rx's Medication Instructions Recorded haloperidol 2 mg tablet 2 mg PO TID PRN 2 Days #45 tab 12/29/20 insulin glargine 100 unit/mL 80 unit SUBCUT BID #10 ml 12/29/20 subcutaneous solution (Lantus U-100 Insulin) insulin lispro 100 unit/mL 10 unit SUBCUT QIDACHS #10 ml 12/29/20 subcutaneous solution (Humalog U-100 Insulin) lorazepam 1 mg tablet (Ativan) 1 mg PO BID PRN #60 tab 12/29/20 metformin 500 mg tablet,extended 500 mg PO DAILY@1700 #30 tab 12/29/20 release 24 hr acetaminophen 500 mg tablet 500 mg PO Q6H PRN #20 tab 02/28/21 (Tylenol Extra Strength) naproxen 500 mg tablet 500 mg PO BID PRN 10 Days #20 tab 02/28/21 Allergies Allergy/AdvReac Type Severity Reaction Status Date / Time No Known Allergies Allergy Verified 02/28/21 12:50 [No Known Allergies*] Review of Systems Review of Systems: Constitutional: No Fever, No Chills ENT/Mouth: No Ear Pain, No Nasal Congestion, No sore throat Cardiovascular: No Chest Pain, No SOB Respiratory: No Cough Gastrointestinal: No Nausea, No Vomiting, No Abdominal pain Musculoskeletal: +joint pain, No Myalgias, + Joint Swelling Skin: No Skin Lesions, No rash Neuro: No Weakness, No Numbness, No Paresthesias Yes all other systems are reviewed and are negative PMFSH Past Medical History Attestation statement: The following information was validated with the patient. Medical History (Updated 02/28/21 @ 14:01 by LAYA Duong) Anxiety Asthma Bipolar disorder Bipolar disorder with psychotic features Concussion Depression Depression Diabetes mellitus, type 2 Diabetes type 2, uncontrolled PTSD (post-traumatic stress disorder) Social History Social History Household Members: Family Housing: Apartment Do you presently have visiting nurse or other home services: No Alcohol intake: never Patient Tobacco Use Status: Current everyday Tobacco user Tobacco use type: Cigarette Cigarette Packs Per Day: 1 Cigarettes Per Day: 20.0 Years Smoked: 3 Second Hand Smoke Exposure: No Substance Use Type: Marijuana Advance Directives: No Advance Directives Information Provided: No service: No Sexual orientation: did not discuss. Physical Exam Vital Signs: Vital Signs: Last Vital Signs Temp 98.6 F 02/28/21 12:50 Pulse 84 02/28/21 12:50 Resp 18 02/28/21 12:50 BP 136/48 L 02/28/21 12:50 Pulse Ox 97 02/28/21 12:50 Body Mass Index 53.1 Const: General: cooperative, healthy appearing and no acute distress Orientation/consciousness: patient oriented x3 Limitations: no limitations HENMT: Head: Yes normal to inspection Ears: hearing grossly normal bilaterally General nose exam: Normal external nose present Face and sinus: Yes normal facial exam Eyes: General: appearance normal, both eyes and all related structures EOM: EOMs intact bilaterally Neck: Neck: Yes normal visual inspection Resp: Effort & Inspection: normal respiratory effort and no respiratory distress Cardio: Rate: regular rate Peripheral pulses: dorsalis pedis present Skin: Rashes: no rashes Wounds: no wounds Neuro: General: patient oriented x3 Gait exam (Neuro): Normal gait present Extrem: Other: Mild swelling to right hand, diffuse tenderness. FROM intact. Finger to thumb opposition intact. Right shoulder and trapezius with tenderness to palpation & decreased abduction/external rotation secondary to pain. Neurovascular intact distally. Distal plantar aspect of left foot with mild tenderness to palpation. No erythema, no fluctuance/induration, no deformity. No cellulitis. Full range of motion/NV intact Course Course Course Narrative: XR shoulder RT min 2V / XR hand RT 2V IMPRESSION: No gross abnormality of the right shoulder or right hand.? MDM - Extremity (Nontraumatic) MDM Narrative Medical decision making narrative: 20-year-old male with past medical history of anxiety, asthma, bipolar, depression, diabetes, PTSD, presenting to the ED complaining of right hand and shoulder pain s/p punching a wooden door on Tuesday. On exam VS, NAD, physical exam as above. Rule out fracture. Likely MSK pain. Plan: X-rays Discharge Plan Discharge Clinical Impression: Hand pain, right, Right shoulder pain, Foot pain, left Patient Disposition: Home, Self-Care Instructions: Arthralgia (ED) Additional Instructions: Your x-rays are unremarkable Ice and elevate painful areas. He should by insoles for your shoes Your pain is likely musculoskeletal Naproxen as an anti-inflammatory / pain medication, take with food In addition take Tylenol at home If symptoms persist or worsen, pain becomes unbearable, return to the ED, please follow-up with your primary care doctor Prescriptions: New acetaminophen [Tylenol Extra Strength] 500 mg tablet 500 mg PO Q6H PRN (Reason: pain or fever) Qty: 20 RF: 0 naproxen 500 mg tablet 500 mg PO BID PRN (Reason: pain) 10 Days Qty: 20 RF: 0 No Action Invega Sustenna 234 mg/1.5 mL Syringe 234 mg IM Q28D RF: 0 Lantus U-100 Insulin 100 unit/mL Solution 80 unit subcut BID Qty: 10 RF: 0 insulin lispro [Humalog U-100 Insulin] 100 unit/mL Solution 10 unit subcut QIDACHS Qty: 10 RF: 0 metformin 500 mg Tablet Extended Release 24 Hr 500 mg PO DAILY@1700 Qty: 30 RF: 0 haloperidol 2 mg tablet 2 mg PO TID PRN (Reason: agitation) 2 Days Qty: 45 RF: 1 lorazepam [Ativan] 1 mg tablet 1 mg PO BID PRN (Reason: anxiety) Qty: 60 RF: 0 Referrals: Gricel Daniel MD [Primary Care Provider] - 1 week (As needed) Leonardo Winters MD [Physician] - 1 week (As needed) Interventions: ED Discharge Assessment Last Done: 02/28/21 14:08 Discharge Date/Time: 02/28/21 14:11
== END 2021-02-28 14:11 | disposition home or self-care (01) ==
PROVIDERS: Emergency Provider Emergency Medicine; PCP General Practice
DX: M79.641 Pain in right hand (principal); M25.511 Pain in right shoulder; M79.672 Pain in left foot; E11.9 Type 2 diabetes mellitus without complications; Z79.4 Long term (current) use of insulin
CPT/HCPCS: 73030; 73120; 99283

== ENCOUNTER → 2021-07-07 13:03 | Outpatient (BNVA) | payer MEDICAID, SELFPAY | PROVIDERS: PCP General Practice; Visit Provider Urology | DX: N47.1 Phimosis (principal) | CPT/HCPCS: 99202 ==

== ENCOUNTER 2021-07-29 17:51 | Inpatient (IN) | payer OTHER, MEDICAID, SELFPAY ==
--- NOTE | ~2021-07-29 | XR_ITS ---
EXAMINATION: XR hand RT 2V CLINICAL INFORMATION: Trauma COMPARISON: Hand radiographs 02/20/2021 TECHNIQUE: 3 views of the hand XR/XR hand RT 2V FINDINGS/IMPRESSION: No fracture or dislocation. Joint spaces are maintained. 7 mm of negative ulnar variance. Soft tissues are unremarkable.
[2021-07-29 18:18] VITALS: BP 149/85; PULSE 85; PULSE 97; RESP 16; TEMP 36.3; O2SAT 97; BMI 50.5
--- NOTE | 2021-07-29 18:21 | ED_ITS ---
HPI - General Adult General Chief complaint: Psychiatric Symptoms <Omari Mendez MD - Last Filed: 07/29/21 18:25> Stated complaint: crisis <Omari Mendez MD - Last Filed: 07/29/21 18:25> Time Seen by Provider: 07/29/21 18:00 <Omari Mendez MD - Last Filed: 07/29/21 18:25> Source: patient, EMS and old records reviewed <Omari Mendez MD - Last Filed: 07/29/21 18:25> History of Present Illness HPI narrative: Patient with a history of depression and bipolar disorder as well as insulin-dependent diabetes. Today complains of depression with suicidal thoughts. He states he was feeling suicidal earlier but not necessarily now. He states he tried to run on from car but did not get hit. He also complains of right hand pain after punching a tree. He states he is feeling anxious. He has not eaten anything today. He is on insulin and typically takes 120 units of Lantus in the morning. He takes 22 units of Humalog with each meal. No recent fevers chills or medical complaints. <Omari Mendez MD - Last Filed: 07/29/21 18:25> Related Data Home medications: Home Medications Medication Instructions Recorded Confirmed divalproex 500 mg 1,000 mg PO BEDTIME 07/29/21 07/29/21 tablet,delayed release divalproex 500 mg 500 mg PO QAM 07/29/21 07/29/21 tablet,delayed release haloperidol 5 mg tablet 5 mg PO QAM 07/29/21 07/29/21 haloperidol 5 mg tablet 10 mg PO BEDTIME 07/29/21 07/29/21 insulin degludec 200 unit/mL 160 unit SUBCUT DAILY 07/29/21 07/29/21 (3 mL) subcutaneous pen (Tresiba FlexTouch U-200 insulin) insulin lispro 100 unit/mL See Protocol SUBCUT QIDACHS 07/29/21 07/29/21 subcutaneous solution (Humalog U-100 Insulin) lorazepam 1 mg tablet 1 tab PO BID PRN 07/29/21 07/29/21 <Omari Mendez MD - Last Filed: 07/29/21 18:25> Allergies/adverse reactions: Allergies Allergy/AdvReac Type Severity Reaction Status Date / Time No Known Allergies Allergy Verified 07/07/21 13:26 [No Known Allergies*] <Omari Mendez MD - Last Filed: 07/29/21 18:25> Review of Systems Verdana 4l Constitutional: Verdana 4d Comments: Verdana 4d Verdana 4d Verdana 4d No fevers or chills Verdana 4d Verdana 4Il <Omari Mendez MD - Last Filed: 07/29/21 18:25> Verdana 4d Verdana 4l Cardiovascular: Verdana 4d Comments: Verdana 4d Verdana 4d Verdana 4d No chest pain Verdana 4d Verdana 4Il <Omari Mendez MD - Last Filed: 07/29/21 18:25> Verdana 4d Verdana 4l Respiratory: Verdana 4d Verdana 4d Comments: Verdana 4d Verdana 4d No dyspnea or cough Verdana 4d Verdana 4Il <Omari Mendez MD - Last Filed: 07/29/21 18:25> Verdana 4d Verdana 4l Gastrointestinal: Verdana 4d Comments: Verdana 4d Verdana 4d Verdana 4d No nausea vomiting diarrhea or abdominal pain Verdana 4d Verdana 4Il <Omari Mendez MD - Last Filed: 07/29/21 18:25> Verdana 4d Verdana 4l Musculoskeletal: Verdana 4d Comments: Verdana 4d Verdana 4d Verdana 4d Right hand pain after punching a tree several times Verdana 4d Verdana 4Il <Omari Mendez MD - Last Filed: 07/29/21 18:25> Verdana 4d Verdana 4l Integumentary/Breasts: Verdana 4d Comments: Verdana 4d Verdana 4d Verdana 4d No bleeding or lacerations or rashes Verdana 4d Verdana 4Il <Omari Mendez MD - Last Filed: 07/29/21 18:25> Verdana 4d Verdana 4l Neurologic: Verdana 4d Verdana 4d Comments: Verdana 4d Verdana 4d No weakness numbness or paresthesias Verdana 4d Verdana 4Il <Omari Mendez MD - Last Filed: 07/29/21 18:25> Verdana 4d Verdana 4l Psychiatric: Verdana 4d Verdana 4d Comments: Verdana 4d Verdana 4d Depression with suicidal ideation consisting of attempt to throw himself in front of a moving car Verdana 4d Verdana 4Il <Omari Mendez MD - Last Filed: 07/29/21 18:25> Verdana 4d Verdana 4l Endocrine: Verdana 4d Verdana 4d Comments: Verdana 4d Verdana 4d Insulin-depend ent diabetes Verdana 4d Verdana 4Il <Omari Mendez MD - Last Filed: 07/29/21 18:25> Verdana 4d PMF Past Medical History Medical History: Medical History (Updated 07/30/21 @ 10:51 by LAYA Paiz) Anxiety Asthma Bipolar disorder Bipolar disorder with psychotic features Concussion Depression Depression Diabetes mellitus, type 2 Diabetes type 2, uncontrolled PTSD (post-traumatic stress disorder) <Omari Mendez MD - Last Filed: 07/29/21 18:25> Social History Social History: Social History Household Members: Family Housing: Apartment Do you presently have visiting nurse or other home services: No Alcohol intake: never Patient Tobacco Use Status: Current everyday Tobacco user Tobacco use type: Cigarette Cigarette Packs Per Day: 1 Cigarettes Per Day: 20.0 Years Smoked: 3 Second Hand Smoke Exposure: No Substance Use Type: Marijuana Advance Directives: No Advance Directives Information Provided: No service: No Sexual orientation: did not discuss. <Omari Mendez MD - Last Filed: 07/29/21 18:25> Physical Exam Verdana 4l Vital Signs: Verdana 4d Verdana 4d Vital Signs: Verdana 4d Verdana 4Bd Last Vital Signs Verdana 4d Rn Dermatology New 4d Rn Dermatology New 4d Temp 97.9 F 07/30/21 07:52 Rn Dermatology New 4d Pulse 80 07/30/21 07:52 Rn Dermatology New 4d Resp 12 07/30/21 07:52 BP 130/68 07/30/21 07:52 Pulse Ox 94 07/30/21 07:52 BMI result Body Mass Index 50.5 <Omari Mendez MD - Last Filed: 07/29/21 18:25> Vital Signs: Last Vital Signs Temp 97.9 F 07/30/21 07:52 Pulse 80 07/30/21 07:52 Resp 12 07/30/21 07:52 BP 130/68 07/30/21 07:52 Pulse Ox 94 07/30/21 07:52 BMI result Body Mass Index 50.5 <Pily Henry MD - Last Filed: 07/30/21 07:48> Vital Signs: Last Vital Signs Temp 97.9 F 07/30/21 07:52 Pulse 80 07/30/21 07:52 Resp 12 07/30/21 07:52 BP 130/68 07/30/21 07:52 Pulse Ox 94 07/30/21 07:52 BMI result Body Mass Index 50.5 <LAYA Paiz - Last Filed: 07/30/21 10:51> Const: Other: Awake alert no acute distress. Cooperative at this time <Omari Mendez MD - Last Filed: 07/29/21 18:25> Resp: Other: Clear and equal bilaterally without wheezes rales or rhonchi <Omari Mendez MD - Last Filed: 07/29/21 18:25> Cardio: Other: Regular rate and rhythm without murmurs rubs or gallops <Omari Mendez MD - Last Filed: 07/29/21 18:25> GI: Other: Soft nontender nondistended <Omari Mendez MD - Last Filed: 07/29/21 18:25> Skin: Other: Warm pink and dry without rash <Omari Mendez MD - Last Filed: 07/29/21 18:25> Course Course Course Narrative: Depression with suicidal ideation with history of bipolar disorder Hyperglycemia Clinically no evidence for DKA. Will treat with Humalog subcutaneously. Ativan for anxiety. Crisis consult <Omari Mendez MD - Last Filed: 07/29/21 18:25> Reevaluation(s) Reevaluation #1: Patient had an uneventful night, last night patient refused a CBC redraw. This morning patient's blood glucose 346, patient has insulin ordered, scheduled, glargine and lispro. Patient reports no issues this morning. Inpatient bed search continues, vital stable <Pily Henry MD - Last Filed: 07/30/21 07:48> Time: 07:46 <Pily Henry MD - Last Filed: 07/30/21 07:48> Reevaluation #2: Patient to be admitted to [facility] today. <LAYA Paiz - Last Filed: 07/30/21 10:51> Time: 10:49 <LAYA Paiz - Last Filed: 07/30/21 10:51> Medical Decision Making Lab Data Result diagrams: : 07/29/21 Unknown 07/29/21 19:26 <Omari Mendez MD - Last Filed: 07/29/21 18:25> Labs: Lab Results 07/29/21 07/29/21 07/29/21 Range/Units 18:39 18:39 18:41 WBC RBC Hgb Hct MCV MCH MCHC RDW Plt Count MPV Immature Gran % (Auto) Neut % (Auto) Lymph % (Auto) [place] % (Auto) Eos % (Auto) Baso % (Auto) Lymph # (Auto) [place] # (Auto) Eos # (Auto) Baso # (Auto) Abs Immat Gran (auto) Absolute Neuts (auto) Absolute Nucleated RBC Nucleated RBC % (auto) Sodium (135-145) mmol/L Potassium (3.3-5.1) mmol/L Chloride (96-108) mmol/L Carbon Dioxide (22-29) mmol/L Anion Gap (12-20) BUN (9-16) mg/dL Creatinine (0.5-1.4) mg/dL Estim Creat Clear Calc Estimated GFR POC Glucose (60-115) mg/dL Random Glucose (60-115) mg/dL Calcium (8.4-10.2) mg/dL Total Bilirubin (0.0-1.0) mg/dL AST (5-37) U/L ALT (0-40) U/L Alkaline Phosphatase (39-117) U/L Total Protein (6.5-8.0) g/dL Albumin (3.5-5.0) g/dL Urine Color YELLOW Urine Appearance CLEAR Urine pH 6.0 (5.0-8.0) Ur Specific [place] 1.015 (1.005-1.025) Urine Protein NEG (NEG-TRACE) MG/DL Urine Glucose (UA) >=1000 H (NEG) MG/DL Urine Ketones 15 (NEG) MG/DL Urine Blood TRACE (NEG) Urine Nitrite NEG (NEG) Ur Leukocyte Esterase NEG (NEG) Urine RBC 5-9 H (0) /HPF Urine WBC 10-14 H (0-4) /HPF Ur Squamous Epith TRACE /LPF Cells Urine Bacteria TRACE /LPF Urine Mucus 1+ /LPF Urine Yeast 3+ /HPF Urine Opiates Screen Not Detected (Not Detect) Urine Fentanyl Screen Not Detected (Not Detect) Ur Barbiturates Screen Not Detected (Not Detect) Ur Phencyclidine Scrn Not Detected (Not Detect) Ur Amphetamines Screen Not Detected (Not Detect) U Benzodiazepines Scrn Not Detected (Not Detect) Urine Cocaine Screen Not Detected (Not Detect) U Marijuana (THC) Not Detected (Not Detect) Screen Ethyl Alcohol mg/dL Acetone, Qual (Negative) COVID-19 ([facility]) Negative (Negative) COVID-19 Clin Com See Note 07/29/21 07/29/21 07/29/21 Range/Units 19:02 19:26 19:26 WBC RBC Hgb Hct MCV MCH MCHC RDW Plt Count MPV Immature Gran % (Auto) Neut % (Auto) Lymph % (Auto) [place] % (Auto) Eos % (Auto) Baso % (Auto) Lymph # (Auto) [place] # (Auto) Eos # (Auto) Baso # (Auto) Abs Immat Gran (auto) Absolute Neuts (auto) Absolute Nucleated RBC Nucleated RBC % (auto) Sodium 134 L (135-145) mmol/L Potassium 4.1 (3.3-5.1) mmol/L Chloride 102 (96-108) mmol/L Carbon Dioxide 20 L (22-29) mmol/L Anion Gap 16 (12-20) BUN 13 (9-16) mg/dL Creatinine 1.29 (0.5-1.4) mg/dL Estim Creat Clear Calc 139.2 Estimated GFR > 60 POC Glucose 464 H* (60-115) mg/dL Random Glucose 529 H* (60-115) mg/dL Calcium 9.5 (8.4-10.2) mg/dL Total Bilirubin 0.3 (0.0-1.0) mg/dL AST 23 (5-37) U/L ALT 31 (0-40) U/L Alkaline Phosphatase 122 H (39-117) U/L Total Protein 7.3 (6.5-8.0) g/dL Albumin 3.9 (3.5-5.0) g/dL Urine Color Urine Appearance Urine pH (5.0-8.0) Ur Specific [place] (1.005-1.025) Urine Protein (NEG-TRACE) MG/DL Urine Glucose (UA) (NEG) MG/DL Urine Ketones (NEG) MG/DL Urine Blood (NEG) Urine Nitrite (NEG) Ur Leukocyte Esterase (NEG) Urine RBC (0) /HPF Urine WBC (0-4) /HPF Ur Squamous Epith Cells /LPF Urine Bacteria /LPF Urine Mucus /LPF Urine Yeast /HPF Urine Opiates Screen (Not Detect) Urine Fentanyl Screen (Not Detect) Ur Barbiturates Screen (Not Detect) Ur Phencyclidine Scrn (Not Detect) Ur Amphetamines Screen (Not Detect) U Benzodiazepines Scrn (Not Detect) Urine Cocaine Screen (Not Detect) U Marijuana (THC) Screen (Not Detect) Ethyl Alcohol < 10 mg/dL Acetone, Qual (Negative) COVID-19 ([facility]) (Negative) COVID-19 Clin Com 07/29/21 07/29/21 07/29/21 Range/Units 19:26 22:54 Unknown WBC Cancelled RBC Cancelled Hgb Cancelled Hct Cancelled MCV Cancelled MCH Cancelled MCHC Cancelled RDW Cancelled Plt Count Cancelled MPV Cancelled Immature Gran % (Auto) Cancelled Neut % (Auto) Cancelled Lymph % (Auto) Cancelled [place] % (Auto) Cancelled Eos % (Auto) Cancelled Baso % (Auto) Cancelled Lymph # (Auto) Cancelled [place] # (Auto) Cancelled Eos # (Auto) Cancelled Baso # (Auto) Cancelled Abs Immat Gran (auto) Cancelled Absolute Neuts (auto) Cancelled Absolute Nucleated RBC Cancelled Nucleated RBC % (auto) Cancelled Sodium (135-145) mmol/L Potassium (3.3-5.1) mmol/L Chloride (96-108) mmol/L Carbon Dioxide (22-29) mmol/L Anion Gap (12-20) BUN (9-16) mg/dL Creatinine (0.5-1.4) mg/dL Estim Creat Clear Calc Estimated GFR POC Glucose 233 H (60-115) mg/dL Random Glucose (60-115) mg/dL Calcium (8.4-10.2) mg/dL Total Bilirubin (0.0-1.0) mg/dL AST (5-37) U/L ALT (0-40) U/L Alkaline Phosphatase (39-117) U/L Total Protein (6.5-8.0) g/dL Albumin (3.5-5.0) g/dL Urine Color Urine Appearance Urine pH (5.0-8.0) Ur Specific [place] (1.005-1.025) Urine Protein (NEG-TRACE) MG/DL Urine Glucose (UA) (NEG) MG/DL Urine Ketones (NEG) MG/DL Urine Blood (NEG) Urine Nitrite (NEG) Ur Leukocyte Esterase (NEG) Urine RBC (0) /HPF Urine WBC (0-4) /HPF Ur Squamous Epith Cells /LPF Urine Bacteria /LPF Urine Mucus /LPF Urine Yeast /HPF Urine Opiates Screen (Not Detect) Urine Fentanyl Screen (Not Detect) Ur Barbiturates Screen (Not Detect) Ur Phencyclidine Scrn (Not Detect) Ur Amphetamines Screen (Not Detect) U Benzodiazepines Scrn (Not Detect) Urine Cocaine Screen (Not Detect) U Marijuana (THC) Screen (Not Detect) Ethyl Alcohol mg/dL Acetone, Qual Negative (Negative) COVID-19 ([facility]) (Negative) COVID-19 Clin Com 07/30/21 07/30/21 Range/Units 07:11 09:11 WBC RBC Hgb Hct MCV MCH MCHC RDW Plt Count MPV Immature Gran % (Auto) Neut % (Auto) Lymph % (Auto) [place] % (Auto) Eos % (Auto) Baso % (Auto) Lymph # (Auto) [place] # (Auto) Eos # (Auto) Baso # (Auto) Abs Immat Gran (auto) Absolute Neuts (auto) Absolute Nucleated RBC Nucleated RBC % (auto) Sodium (135-145) mmol/L Potassium (3.3-5.1) mmol/L Chloride (96-108) mmol/L Carbon Dioxide (22-29) mmol/L Anion Gap (12-20) BUN (9-16) mg/dL Creatinine (0.5-1.4) mg/dL Estim Creat Clear Calc Estimated GFR POC Glucose 346 H (60-115) mg/dL Random Glucose (60-115) mg/dL Calcium (8.4-10.2) mg/dL Total Bilirubin (0.0-1.0) mg/dL AST (5-37) U/L ALT (0-40) U/L Alkaline Phosphatase (39-117) U/L Total Protein (6.5-8.0) g/dL Albumin (3.5-5.0) g/dL Urine Color Urine Appearance Urine pH (5.0-8.0) Ur Specific [place] (1.005-1.025) Urine Protein (NEG-TRACE) MG/DL Urine Glucose (UA) (NEG) MG/DL Urine Ketones (NEG) MG/DL Urine Blood (NEG) Urine Nitrite (NEG) Ur Leukocyte Esterase (NEG) Urine RBC (0) /HPF Urine WBC (0-4) /HPF Ur Squamous Epith Cells /LPF Urine Bacteria /LPF Urine Mucus /LPF Urine Yeast /HPF Urine Opiates Screen (Not Detect) Urine Fentanyl Screen (Not Detect) Ur Barbiturates Screen (Not Detect) Ur Phencyclidine Scrn (Not Detect) Ur Amphetamines Screen (Not Detect) U Benzodiazepines Scrn (Not Detect) Urine Cocaine Screen (Not Detect) U Marijuana (THC) Screen (Not Detect) Ethyl Alcohol mg/dL Acetone, Qual (Negative) COVID-19 ([facility]) Negative (Negative) COVID-19 Clin Com See Note <Omari Mendez MD - Last Filed: 07/29/21 18:25> Lab Results 07/29/21 07/29/21 07/29/21 Range/Units 18:39 18:39 18:41 WBC RBC Hgb Hct MCV MCH MCHC RDW Plt Count MPV Immature Gran % (Auto) Neut % (Auto) Lymph % (Auto) [place] % (Auto) Eos % (Auto) Baso % (Auto) Lymph # (Auto) [place] # (Auto) Eos # (Auto) Baso # (Auto) Abs Immat Gran (auto) Absolute Neuts (auto) Absolute Nucleated RBC Nucleated RBC % (auto) Sodium (135-145) mmol/L Potassium (3.3-5.1) mmol/L Chloride (96-108) mmol/L Carbon Dioxide (22-29) mmol/L Anion Gap (12-20) BUN (9-16) mg/dL Creatinine (0.5-1.4) mg/dL Estim Creat Clear Calc Estimated GFR POC Glucose (60-115) mg/dL Random Glucose (60-115) mg/dL Calcium (8.4-10.2) mg/dL Total Bilirubin (0.0-1.0) mg/dL AST (5-37) U/L ALT (0-40) U/L Alkaline Phosphatase (39-117) U/L Total Protein (6.5-8.0) g/dL Albumin (3.5-5.0) g/dL Urine Color YELLOW Urine Appearance CLEAR Urine pH 6.0 (5.0-8.0) Ur Specific [place] 1.015 (1.005-1.025) Urine Protein NEG (NEG-TRACE) MG/DL Urine Glucose (UA) >=1000 H (NEG) MG/DL Urine Ketones 15 (NEG) MG/DL Urine Blood TRACE (NEG) Urine Nitrite NEG (NEG) Ur Leukocyte Esterase NEG (NEG) Urine RBC 5-9 H (0) /HPF Urine WBC 10-14 H (0-4) /HPF Ur Squamous Epith TRACE /LPF Cells Urine Bacteria TRACE /LPF Urine Mucus 1+ /LPF Urine Yeast 3+ /HPF Urine Opiates Screen Not Detected (Not Detect) Urine Fentanyl Screen Not Detected (Not Detect) Ur Barbiturates Screen Not Detected (Not Detect) Ur Phencyclidine Scrn Not Detected (Not Detect) Ur Amphetamines Screen Not Detected (Not Detect) U Benzodiazepines Scrn Not Detected (Not Detect) Urine Cocaine Screen Not Detected (Not Detect) U Marijuana (THC) Not Detected (Not Detect) Screen Ethyl Alcohol mg/dL Acetone, Qual (Negative) COVID-19 ([facility]) Negative (Negative) COVID-19 Clin Com See Note 07/29/21 07/29/21 07/29/21 Range/Units 19:02 19:26 19:26 WBC RBC Hgb Hct MCV MCH MCHC RDW Plt Count MPV Immature Gran % (Auto) Neut % (Auto) Lymph % (Auto) [place] % (Auto) Eos % (Auto) Baso % (Auto) Lymph # (Auto) [place] # (Auto) Eos # (Auto) Baso # (Auto) Abs Immat Gran (auto) Absolute Neuts (auto) Absolute Nucleated RBC Nucleated RBC % (auto) Sodium 134 L (135-145) mmol/L Potassium 4.1 (3.3-5.1) mmol/L Chloride 102 (96-108) mmol/L Carbon Dioxide 20 L (22-29) mmol/L Anion Gap 16 (12-20) BUN 13 (9-16) mg/dL Creatinine 1.29 (0.5-1.4) mg/dL Estim Creat Clear Calc 139.2 Estimated GFR > 60 POC Glucose 464 H* (60-115) mg/dL Random Glucose 529 H* (60-115) mg/dL Calcium 9.5 (8.4-10.2) mg/dL Total Bilirubin 0.3 (0.0-1.0) mg/dL AST 23 (5-37) U/L ALT 31 (0-40) U/L Alkaline Phosphatase 122 H (39-117) U/L Total Protein 7.3 (6.5-8.0) g/dL Albumin 3.9 (3.5-5.0) g/dL Urine Color Urine Appearance Urine pH (5.0-8.0) Ur Specific [place] (1.005-1.025) Urine Protein (NEG-TRACE) MG/DL Urine Glucose (UA) (NEG) MG/DL Urine Ketones (NEG) MG/DL Urine Blood (NEG) Urine Nitrite (NEG) Ur Leukocyte Esterase (NEG) Urine RBC (0) /HPF Urine WBC (0-4) /HPF Ur Squamous Epith Cells /LPF Urine Bacteria /LPF Urine Mucus /LPF Urine Yeast /HPF Urine Opiates Screen (Not Detect) Urine Fentanyl Screen (Not Detect) Ur Barbiturates Screen (Not Detect) Ur Phencyclidine Scrn (Not Detect) Ur Amphetamines Screen (Not Detect) U Benzodiazepines Scrn (Not Detect) Urine Cocaine Screen (Not Detect) U Marijuana (THC) Screen (Not Detect) Ethyl Alcohol < 10 mg/dL Acetone, Qual (Negative) COVID-19 ([facility]) (Negative) COVID-19 Clin Com 07/29/21 07/29/21 07/29/21 Range/Units 19:26 22:54 Unknown WBC Cancelled RBC Cancelled Hgb Cancelled Hct Cancelled MCV Cancelled MCH Cancelled MCHC Cancelled RDW Cancelled Plt Count Cancelled MPV Cancelled Immature Gran % (Auto) Cancelled Neut % (Auto) Cancelled Lymph % (Auto) Cancelled [place] % (Auto) Cancelled Eos % (Auto) Cancelled Baso % (Auto) Cancelled Lymph # (Auto) Cancelled [place] # (Auto) Cancelled Eos # (Auto) Cancelled Baso # (Auto) Cancelled Abs Immat Gran (auto) Cancelled Absolute Neuts (auto) Cancelled Absolute Nucleated RBC Cancelled Nucleated RBC % (auto) Cancelled Sodium (135-145) mmol/L Potassium (3.3-5.1) mmol/L Chloride (96-108) mmol/L Carbon Dioxide (22-29) mmol/L Anion Gap (12-20) BUN (9-16) mg/dL Creatinine (0.5-1.4) mg/dL Estim Creat Clear Calc Estimated GFR POC Glucose 233 H (60-115) mg/dL Random Glucose (60-115) mg/dL Calcium (8.4-10.2) mg/dL Total Bilirubin (0.0-1.0) mg/dL AST (5-37) U/L ALT (0-40) U/L Alkaline Phosphatase (39-117) U/L Total Protein (6.5-8.0) g/dL Albumin (3.5-5.0) g/dL Urine Color Urine Appearance Urine pH (5.0-8.0) Ur Specific [place] (1.005-1.025) Urine Protein (NEG-TRACE) MG/DL Urine Glucose (UA) (NEG) MG/DL Urine Ketones (NEG) MG/DL Urine Blood (NEG) Urine Nitrite (NEG) Ur Leukocyte Esterase (NEG) Urine RBC (0) /HPF Urine WBC (0-4) /HPF Ur Squamous Epith Cells /LPF Urine Bacteria /LPF Urine Mucus /LPF Urine Yeast /HPF Urine Opiates Screen (Not Detect) Urine Fentanyl Screen (Not Detect) Ur Barbiturates Screen (Not Detect) Ur Phencyclidine Scrn (Not Detect) Ur Amphetamines Screen (Not Detect) U Benzodiazepines Scrn (Not Detect) Urine Cocaine Screen (Not Detect) U Marijuana (THC) Screen (Not Detect) Ethyl Alcohol mg/dL Acetone, Qual Negative (Negative) COVID-19 ([facility]) (Negative) COVID-19 Clin Com 07/30/21 07/30/21 Range/Units 07:11 09:11 WBC RBC Hgb Hct MCV MCH MCHC RDW Plt Count MPV Immature Gran % (Auto) Neut % (Auto) Lymph % (Auto) [place] % (Auto) Eos % (Auto) Baso % (Auto) Lymph # (Auto) [place] # (Auto) Eos # (Auto) Baso # (Auto) Abs Immat Gran (auto) Absolute Neuts (auto) Absolute Nucleated RBC Nucleated RBC % (auto) Sodium (135-145) mmol/L Potassium (3.3-5.1) mmol/L Chloride (96-108) mmol/L Carbon Dioxide (22-29) mmol/L Anion Gap (12-20) BUN (9-16) mg/dL Creatinine (0.5-1.4) mg/dL Estim Creat Clear Calc Estimated GFR POC Glucose 346 H (60-115) mg/dL Random Glucose (60-115) mg/dL Calcium (8.4-10.2) mg/dL Total Bilirubin (0.0-1.0) mg/dL AST (5-37) U/L ALT (0-40) U/L Alkaline Phosphatase (39-117) U/L Total Protein (6.5-8.0) g/dL Albumin (3.5-5.0) g/dL Urine Color Urine Appearance Urine pH (5.0-8.0) Ur Specific [place] (1.005-1.025) Urine Protein (NEG-TRACE) MG/DL Urine Glucose (UA) (NEG) MG/DL Urine Ketones (NEG) MG/DL Urine Blood (NEG) Urine Nitrite (NEG) Ur Leukocyte Esterase (NEG) Urine RBC (0) /HPF Urine WBC (0-4) /HPF Ur Squamous Epith Cells /LPF Urine Bacteria /LPF Urine Mucus /LPF Urine Yeast /HPF Urine Opiates Screen (Not Detect) Urine Fentanyl Screen (Not Detect) Ur Barbiturates Screen (Not Detect) Ur Phencyclidine Scrn (Not Detect) Ur Amphetamines Screen (Not Detect) U Benzodiazepines Scrn (Not Detect) Urine Cocaine Screen (Not Detect) U Marijuana (THC) Screen (Not Detect) Ethyl Alcohol mg/dL Acetone, Qual (Negative) COVID-19 ([facility]) Negative (Negative) COVID-19 Clin Com See Note <Pily Henry MD - Last Filed: 07/30/21 07:48> Lab Results 07/29/21 07/29/21 07/29/21 Range/Units 18:39 18:39 18:41 WBC RBC Hgb Hct MCV MCH MCHC RDW Plt Count MPV Immature Gran % (Auto) Neut % (Auto) Lymph % (Auto) [place] % (Auto) Eos % (Auto) Baso % (Auto) Lymph # (Auto) [place] # (Auto) Eos # (Auto) Baso # (Auto) Abs Immat Gran (auto) Absolute Neuts (auto) Absolute Nucleated RBC Nucleated RBC % (auto) Sodium (135-145) mmol/L Potassium (3.3-5.1) mmol/L Chloride (96-108) mmol/L Carbon Dioxide (22-29) mmol/L Anion Gap (12-20) BUN (9-16) mg/dL Creatinine (0.5-1.4) mg/dL Estim Creat Clear Calc Estimated GFR POC Glucose (60-115) mg/dL Random Glucose (60-115) mg/dL Calcium (8.4-10.2) mg/dL Total Bilirubin (0.0-1.0) mg/dL AST (5-37) U/L ALT (0-40) U/L Alkaline Phosphatase (39-117) U/L Total Protein (6.5-8.0) g/dL Albumin (3.5-5.0) g/dL Urine Color YELLOW Urine Appearance CLEAR Urine pH 6.0 (5.0-8.0) Ur Specific [place] 1.015 (1.005-1.025) Urine Protein NEG (NEG-TRACE) MG/DL Urine Glucose (UA) >=1000 H (NEG) MG/DL Urine Ketones 15 (NEG) MG/DL Urine Blood TRACE (NEG) Urine Nitrite NEG (NEG) Ur Leukocyte Esterase NEG (NEG) Urine RBC 5-9 H (0) /HPF Urine WBC 10-14 H (0-4) /HPF Ur Squamous Epith TRACE /LPF Cells Urine Bacteria TRACE /LPF Urine Mucus 1+ /LPF Urine Yeast 3+ /HPF Urine Opiates Screen Not Detected (Not Detect) Urine Fentanyl Screen Not Detected (Not Detect) Ur Barbiturates Screen Not Detected (Not Detect) Ur Phencyclidine Scrn Not Detected (Not Detect) Ur Amphetamines Screen Not Detected (Not Detect) U Benzodiazepines Scrn Not Detected (Not Detect) Urine Cocaine Screen Not Detected (Not Detect) U Marijuana (THC) Not Detected (Not Detect) Screen Ethyl Alcohol mg/dL Acetone, Qual (Negative) COVID-19 ([facility]) Negative (Negative) COVID-19 Clin Com See Note 07/29/21 07/29/21 07/29/21 Range/Units 19:02 19: 19:26 WBC RBC Hgb Hct MCV MCH MCHC RDW Plt Count MPV Immature Gran % (Auto) Neut % (Auto) Lymph % (Auto) [place] % (Auto) Eos % (Auto) Baso % (Auto) Lymph # (Auto) [place] # (Auto) Eos # (Auto) Baso # (Auto) Abs Immat Gran (auto) Absolute Neuts (auto) Absolute Nucleated RBC Nucleated RBC % (auto) Sodium 134 L (135-145) mmol/L Potassium 4.1 (3.3-5.1) mmol/L Chloride 102 (96-108) mmol/L Carbon Dioxide 20 L (22-29) mmol/L Anion Gap 16 (12-20) BUN 13 (9-16) mg/dL Creatinine 1.29 (0.5-1.4) mg/dL Estim Creat Clear Calc 139.2 Estimated GFR > 60 POC Glucose 464 H* (60-115) mg/dL Random Glucose 529 H* (60-115) mg/dL Calcium 9.5 (8.4-10.2) mg/dL Total Bilirubin 0.3 (0.0-1.0) mg/dL AST 23 (5-37) U/L ALT 31 (0-40) U/L Alkaline Phosphatase 122 H (39-117) U/L Total Protein 7.3 (6.5-8.0) g/dL Albumin 3.9 (3.5-5.0) g/dL Urine Color Urine Appearance Urine pH (5.0-8.0) Ur Specific [place] (1.005-1.025) Urine Protein (NEG-TRACE) MG/DL Urine Glucose (UA) (NEG) MG/DL Urine Ketones (NEG) MG/DL Urine Blood (NEG) Urine Nitrite (NEG) Ur Leukocyte Esterase (NEG) Urine RBC (0) /HPF Urine WBC (0-4) /HPF Ur Squamous Epith Cells /LPF Urine Bacteria /LPF Urine Mucus /LPF Urine Yeast /HPF Urine Opiates Screen (Not Detect) Urine Fentanyl Screen (Not Detect) Ur Barbiturates Screen (Not Detect) Ur Phencyclidine Scrn (Not Detect) Ur Amphetamines Screen (Not Detect) U Benzodiazepines Scrn (Not Detect) Urine Cocaine Screen (Not Detect) U Marijuana (THC) Screen (Not Detect) Ethyl Alcohol < 10 mg/dL Acetone, Qual (Negative) COVID-19 ([facility]) (Negative) COVID-19 Clin Com 07/29/21 07/29/21 07/29/21 Range/Units 19:26 22:54 Unknown WBC Cancelled RBC Cancelled Hgb Cancelled Hct Cancelled MCV Cancelled MCH Cancelled MCHC Cancelled RDW Cancelled Plt Count Cancelled MPV Cancelled Immature Gran % (Auto) Cancelled Neut % (Auto) Cancelled Lymph % (Auto) Cancelled [place] % (Auto) Cancelled Eos % (Auto) Cancelled Baso % (Auto) Cancelled Lymph # (Auto) Cancelled [place] # (Auto) Cancelled Eos # (Auto) Cancelled Baso # (Auto) Cancelled Abs Immat Gran (auto) Cancelled Absolute Neuts (auto) Cancelled Absolute Nucleated RBC Cancelled Nucleated RBC % (auto) Cancelled Sodium (135-145) mmol/L Potassium (3.3-5.1) mmol/L Chloride (96-108) mmol/L Carbon Dioxide (22-29) mmol/L Anion Gap (12-20) BUN (9-16) mg/dL Creatinine (0.5-1.4) mg/dL Estim Creat Clear Calc Estimated GFR POC Glucose 233 H (60-115) mg/dL Random Glucose (60-115) mg/dL Calcium (8.4-10.2) mg/dL Total Bilirubin (0.0-1.0) mg/dL AST (5-37) U/L ALT (0-40) U/L Alkaline Phosphatase (39-117) U/L Total Protein (6.5-8.0) g/dL Albumin (3.5-5.0) g/dL Urine Color Urine Appearance Urine pH (5.0-8.0) Ur Specific [place] (1.005-1.025) Urine Protein (NEG-TRACE) MG/DL Urine Glucose (UA) (NEG) MG/DL Urine Ketones (NEG) MG/DL Urine Blood (NEG) Urine Nitrite (NEG) Ur Leukocyte Esterase (NEG) Urine RBC (0) /HPF Urine WBC (0-4) /HPF Ur Squamous Epith Cells /LPF Urine Bacteria /LPF Urine Mucus /LPF Urine Yeast /HPF Urine Opiates Screen (Not Detect) Urine Fentanyl Screen (Not Detect) Ur Barbiturates Screen (Not Detect) Ur Phencyclidine Scrn (Not Detect) Ur Amphetamines Screen (Not Detect) U Benzodiazepines Scrn (Not Detect) Urine Cocaine Screen (Not Detect) U Marijuana (THC) Screen (Not Detect) Ethyl Alcohol mg/dL Acetone, Qual Negative (Negative) COVID-19 ([facility]) (Negative) COVID-19 Clin Com 07/30/21 07/30/21 Range/Units 07:11 09:11 WBC RBC Hgb Hct MCV MCH MCHC RDW Plt Count MPV Immature Gran % (Auto) Neut % (Auto) Lymph % (Auto) [place] % (Auto) Eos % (Auto) Baso % (Auto) Lymph # (Auto) [place] # (Auto) Eos # (Auto) Baso # (Auto) Abs Immat Gran (auto) Absolute Neuts (auto) Absolute Nucleated RBC Nucleated RBC % (auto) Sodium (135-145) mmol/L Potassium (3.3-5.1) mmol/L Chloride (96-108) mmol/L Carbon Dioxide (22-29) mmol/L Anion Gap (12-20) BUN (9-16) mg/dL Creatinine (0.5-1.4) mg/dL Estim Creat Clear Calc Estimated GFR POC Glucose 346 H (60-115) mg/dL Random Glucose (60-115) mg/dL Calcium (8.4-10.2) mg/dL Total Bilirubin (0.0-1.0) mg/dL AST (5-37) U/L ALT (0-40) U/L Alkaline Phosphatase (39-117) U/L Total Protein (6.5-8.0) g/dL Albumin (3.5-5.0) g/dL Urine Color Urine Appearance Urine pH (5.0-8.0) Ur Specific [place] (1.005-1.025) Urine Protein (NEG-TRACE) MG/DL Urine Glucose (UA) (NEG) MG/DL Urine Ketones (NEG) MG/DL Urine Blood (NEG) Urine Nitrite (NEG) Ur Leukocyte Esterase (NEG) Urine RBC (0) /HPF Urine WBC (0-4) /HPF Ur Squamous Epith Cells /LPF Urine Bacteria /LPF Urine Mucus /LPF Urine Yeast /HPF Urine Opiates Screen (Not Detect) Urine Fentanyl Screen (Not Detect) Ur Barbiturates Screen (Not Detect) Ur Phencyclidine Scrn (Not Detect) Ur Amphetamines Screen (Not Detect) U Benzodiazepines Scrn (Not Detect) Urine Cocaine Screen (Not Detect) U Marijuana (THC) Screen (Not Detect) Ethyl Alcohol mg/dL Acetone, Qual (Negative) COVID-19 ([facility]) Negative (Negative) COVID-19 Clin Com See Note <LAYA Paiz - Last Filed: 07/30/21 10:51> Discharge Plan Discharge Clinical Impression: Bipolar disorder <Omari Mendez MD - Last Filed: 07/29/21 18:25> Patient Disposition: Admitted As Inpatient <Omari Mendez MD - Last Filed: 07/29/21 18:25> Prescriptions: No Action haloperidol 5 mg tablet 5 mg PO QAM 0RF haloperidol 5 mg tablet 10 mg PO BEDTIME 0RF divalproex 500 mg tablet,delayed release (DR/EC) 500 mg PO QAM 0RF divalproex 500 mg tablet,delayed release (DR/EC) 1,000 mg PO BEDTIME 0RF lorazepam 1 mg tablet 1 tab PO BID PRN (Reason: anxiety) 0RF Tresiba FlexTouch U-200 200 unit/mL (3 mL) insulin pen 160 unit subcut DAILY 0RF insulin lispro [Humalog U-100 Insulin] 100 unit/mL solution See Protocol unit subcut QIDACHS 0RF Protocol: Insulin Correction Scale Less than or equal to 110 ---- Give (units): 0 111 to 150 Give (units): 0 151 to 200 Give (units): 2 201 to 250 Give (units): 4 251 to 300 Give (units): 6 301 to 350 Give (units): 8 Greater than 350 Give (units): 10 Call if Blood Glucose > : 350 <Omari Mendez MD - Last Filed: 07/29/21 18:25>
[2021-07-29] MEDS: LORazepam 1 MG TABLET PO (18:31)
[2021-07-29] MEDS: Insulin Lispro 100 UNIT/ML 3 ML VIAL 22 UNIT SUBCUT (18:31)
[2021-07-29 19:06] LABS: Amphetamine Screen Urine Not Detected (Not Detect); Barbiturates, Urine Not Detected (Not Detect); Benzodiazepines Screen Urine Not Detected (Not Detect); Cannabinoid Screen Urine Not Detected (Not Detect); Cocaine Screen Urine Not Detected (Not Detect); Fentanyl, urine Not Detected (Not Detect); Opiate Screen Urine Not Detected (Not Detect); Phencyclidine Screen Urine Not Detected (Not Detect)
[2021-07-29 19:07] LABS: COVID-19 Test Negative (Negative)
[2021-07-29 19:07] LABS: Glucose, Whole Blood 464 mg/dL (60-115)
[2021-07-29 20:04] LABS: Ethanol < 10 mg/dL
--- NOTE | 2021-07-29 20:07 | PC.NURSE ---
Patient refused CBC redraw at this time.
[2021-07-29 20:11] LABS: Alanine Aminotransferase 31 U/L (0-40); Albumin Level 3.9 g/dL (3.5-5.0); Alkaline Phosphatase 122 U/L (39-117); Anion Gap 16 (12-20); Aspartate Amino Transferase 23 U/L (5-37); Bilirubin Total 0.3 mg/dL (0.0-1.0); Blood Urea Nitrogen 13 mg/dL (9-16); Calcium 9.5 mg/dL (8.4-10.2); Carbon Dioxide 20 mmol/L (22-29); Chloride 102 mmol/L (96-108); Creatinine Clr Calc Pharmacy 139.2; Estimated Glomerular Filt Rate > 60; Glucose Random 529 mg/dL (60-115); Potassium 4.1 mmol/L (3.3-5.1); Sodium 134 mmol/L (135-145); Total Protein 7.3 g/dL (6.5-8.0)
[2021-07-29] MEDS: Insulin Lispro 100 UNIT/ML 3 ML VIAL 20 UNIT SUBCUT (20:26)
[2021-07-29 21:21] LABS: Acetone, serum QL Negative (Negative)
[2021-07-29] MEDS: Divalproex Sodium 500 MG TABLET.DR 1000 MG PO (22:54)
[2021-07-29] MEDS: HaloperidoL 5 MG TABLET 10 MG PO (22:54)
[2021-07-29 22:58] LABS: Glucose, Whole Blood 233 mg/dL (60-115)
[2021-07-30 02:24] VITALS: BP 154/92; PULSE 88; RESP 16; TEMP 36.4; O2SAT 99
[2021-07-30 07:15] LABS: Glucose, Whole Blood 346 mg/dL (60-115)
[2021-07-30 07:49] LABS: Appearance Urine CLEAR; Color Urine YELLOW; Glucose Urine UA >=1000 MG/DL (NEG); Leukocyte Esterase Urine NEG (NEG); Nitrite Urine NEG (NEG); Specific Gravity - Urine 1.015 (1.005-1.025); UACC Culture Trigger NO; Urine Blood TRACE (NEG); Urine Ketones 15 MG/DL (NEG); Urine Protein NEG (NEG-TRACE)
[2021-07-30 07:52] VITALS: BP 130/68; PULSE 80; RESP 12; TEMP 36.6; O2SAT 94
[2021-07-30] MEDS: Insulin Lispro 100 UNIT/ML 3 ML VIAL SUBCUT ×4 (08:00→21:20)
[2021-07-30] MEDS: Insulin Glargine,Hum.rec.anlog 100 UNIT/ML 10 ML VIAL 112 UNIT SUBCUT (08:00)
[2021-07-30] MEDS: HaloperidoL 5 MG TABLET PO ×2 (08:00→08:02)
[2021-07-30] MEDS: Divalproex Sodium 500 MG TABLET.DR PO (08:03)
[2021-07-30 08:07] LABS: UACC CULT YES
[2021-07-30 08:08] LABS: Bacteria Urine TRACE /LPF; Mucus Urine 1+ /LPF; Squamous Epithelial Cell Urine TRACE /LPF
--- NOTE | 2021-07-30 08:51 | ECG_ITS ---
Test Reason : MEDICAL CLEARANCE Blood Pressure : / mmHG Vent. Rate : 079 BPM Atrial Rate : 079 BPM P-R Int : 160 ms QRS Dur : 086 ms QT Int : 346 ms P-R-T Axes : 053 066 018 degrees QTc Int : 396 ms Normal sinus rhythm Nonspecific ST and T wave abnormality Abnormal ECG When compared with ECG of 26-DEC-2020 10:22, No significant change was found Referred By: Pily Henry Electronically Signed By:ANIVAL MOROCHO MD
[2021-07-30 09:40] LABS: COVID-19 Test Negative (Negative)
[2021-07-30 11:40] LABS: Glucose, Whole Blood 283 mg/dL (60-115)
[2021-07-30] MEDS: LORazepam 1 MG TABLET PO (13:51)
[2021-07-30 14:30] VITALS: BP 132/88; PULSE 97; RESP 16; TEMP 36.5; O2SAT 98
--- NOTE | 2021-07-30 14:49 | PC.NURSE ---
Pt refused flu vaccine, stated he's already immunized this season
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
--- NOTE | 2021-07-30 15:24 | PC.NURSE ---
Pt states he prefers to be called Rico instead of Williams
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
[2021-07-30] MEDS: Nicotine Polacrilex 2 MG GUM BUCCAL (16:35)
[2021-07-30 18:00] VITALS: BP 111/53; PULSE 87; RESP 16; TEMP 36.6; O2SAT 95
[2021-07-30 18:02] LABS: Glucose, Whole Blood 436 mg/dL (60-115)
[2021-07-30] MEDS: HaloperidoL 5 MG TABLET 10 MG PO (21:06)
[2021-07-30] MEDS: Divalproex Sodium 500 MG TABLET.DR 1000 MG PO (21:06)
[2021-07-30 21:15] LABS: Glucose, Whole Blood 364 mg/dL (60-115)
[2021-07-31 07:35] LABS: Estimated Average Glucose 344 mg/dL; Hemoglobin A1c % 13.6 %
[2021-07-31 07:38] LABS: Cholesterol 208 mg/dL; HDL Cholesterol 25 mg/dL; Triglycerides 670 mg/dL
[2021-07-31 07:57] LABS: Thyroid Stimulating Hormone 3.46 uIU/mL (0.32-4.0)
[2021-07-31 09:26] LABS: Glucose, Whole Blood 378 mg/dL (60-115)
[2021-07-31 09:31] LABS: Folate 16.1 ng/mL (> or = 4.0); Vitamin B12 608 pg/mL (200-900)
[2021-07-31] MEDS: Divalproex Sodium 500 MG TABLET.DR PO (09:43)
[2021-07-31] MEDS: HaloperidoL 5 MG TABLET PO (09:43)
[2021-07-31] MEDS: LORazepam 1 MG TABLET PO ×2 (09:44→15:38)
[2021-07-31] MEDS: Insulin Glargine,Hum.rec.anlog 100 UNIT/ML 10 ML VIAL 112 UNIT SUBCUT (09:45)
[2021-07-31] MEDS: Insulin Lispro 100 UNIT/ML 3 ML VIAL SUBCUT ×4 (09:45→20:20)
--- NOTE | 2021-07-31 09:50 | PC.NURSE ---
PT POC 378at 0915. Provider notified at 0924. PT received sliding scale and scheduled lantus as ordered.
[2021-07-31 09:53] VITALS: BP 138/73; PULSE 78; RESP 16; TEMP 36.3; O2SAT 95
[2021-07-31 12:47] LABS: Glucose, Whole Blood 420 mg/dL (60-115)
--- NOTE | 2021-07-31 12:59 | PC.NURSE ---
PT POC 420 at 1244, Provider notified at 1246. PT received sliding scale insulin as ordered.
[2021-07-31] MEDS: Acetaminophen 325 MG TABLET 650 MG PO (15:38)
--- NOTE | 2021-07-31 16:16 | PC.NURSE ---
Pt submitted a Three Day Notice on Monday 07/31 up on Saturday 08/05.
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
[2021-07-31 17:43] LABS: Glucose, Whole Blood 519 mg/dL (60-115)
--- NOTE | 2021-07-31 17:59 | PC.NURSE ---
PT POC 519 at 1739, notified at 1743, no new orders at this time. Pt given 10 units insulin as ordered per sliding scale. Education on healthy diet, sugar and fluid intake given.
[2021-07-31 20:00] LABS: Glucose, Whole Blood 500 mg/dL (60-115)
[2021-07-31] MEDS: HaloperidoL 5 MG TABLET 10 MG PO (20:20)
[2021-07-31 20:38] VITALS: BP 131/62; PULSE 85; RESP 18; TEMP 36.6; O2SAT 94
[2021-07-31] MEDS: Divalproex Sodium 500 MG TABLET.DR 1000 MG PO (20:46)
[2021-08-01 08:00] VITALS: BP 117/60; PULSE 80; RESP 16; TEMP 36.1; O2SAT 97
[2021-08-01 08:55] LABS: Glucose, Whole Blood 332 mg/dL (60-115)
[2021-08-01] MEDS: Insulin Lispro 100 UNIT/ML 3 ML VIAL SUBCUT ×4 (09:06→20:35)
[2021-08-01] MEDS: Divalproex Sodium 500 MG TABLET.DR PO (09:44)
[2021-08-01] MEDS: HaloperidoL 5 MG TABLET PO (09:44)
[2021-08-01] MEDS: Insulin Glargine,Hum.rec.anlog 100 UNIT/ML 10 ML VIAL 112 UNIT SUBCUT (10:46)
[2021-08-01 12:38] LABS: Glucose, Whole Blood 324 mg/dL (60-115)
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
--- NOTE | 2021-08-01 13:40 | PC.NURSE ---
Addendum entered by Dorie Whiting RN 08/01/21 16:28: 1620 POC 442, Dr. Pascual notified via tiger text. Original Note: Dr. Wall notified of positive yeast in UA.
[2021-08-01 16:22] LABS: Glucose, Whole Blood 442 mg/dL (60-115)
[2021-08-01 20:10] VITALS: BP 137/63; PULSE 92; RESP 18; TEMP 36.3; O2SAT 95
[2021-08-01] MEDS: HaloperidoL 5 MG TABLET 10 MG PO (20:35)
[2021-08-01] MEDS: Divalproex Sodium 500 MG TABLET.DR 1000 MG PO (20:35)
[2021-08-01] MEDS: Acetaminophen 325 MG TABLET 650 MG PO (20:35)
[2021-08-01 21:34] LABS: Glucose, Whole Blood 411 mg/dL (60-115)
[2021-08-02] MEDS: LORazepam 1 MG TABLET PO ×2 (00:48→19:54)
[2021-08-02 06:00] VITALS: BP 104/55; PULSE 68; RESP 18; TEMP 36.2; O2SAT 94
[2021-08-02 09:01] LABS: Glucose, Whole Blood 317 mg/dL (60-115)
[2021-08-02] MEDS: HaloperidoL 5 MG TABLET PO (09:27)
[2021-08-02] MEDS: Divalproex Sodium 500 MG TABLET.DR PO (09:27)
[2021-08-02] MEDS: Insulin Glargine,Hum.rec.anlog 100 UNIT/ML 10 ML VIAL 112 UNIT SUBCUT (09:30)
[2021-08-02] MEDS: Insulin Lispro 100 UNIT/ML 3 ML VIAL SUBCUT ×4 (09:31→19:59)
[2021-08-02 12:20] LABS: Glucose, Whole Blood 384 mg/dL (60-115)
--- NOTE | 2021-08-02 12:41 | PC.NURSE ---
Dr. Pascual made aware of patient POC of 384 critical high.
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
[2021-08-02 17:11] LABS: Glucose, Whole Blood 318 mg/dL (60-115)
[2021-08-02 18:00] VITALS: BP 133/82; PULSE 89; RESP 18; TEMP 36.6; O2SAT 95
[2021-08-02 19:55] LABS: Glucose, Whole Blood 382 mg/dL (60-115)
[2021-08-02] MEDS: Divalproex Sodium 500 MG TABLET.DR 1000 MG PO (19:55)
[2021-08-02] MEDS: HaloperidoL 5 MG TABLET 10 MG PO (19:55)
[2021-08-03] MEDS: LORazepam 1 MG TABLET PO ×2 (01:34→20:02)
[2021-08-03] MEDS: traZODone HCL 100 MG TABLET PO ×3 (02:22→23:10)
[2021-08-03 08:00] VITALS: BP 135/72; PULSE 104; TEMP 35.8; O2SAT 95
[2021-08-03 08:35] LABS: Glucose, Whole Blood 419 mg/dL (60-115)
[2021-08-03] MEDS: Insulin Glargine,Hum.rec.anlog 100 UNIT/ML 10 ML VIAL 112 UNIT SUBCUT (09:00)
[2021-08-03] MEDS: Insulin Lispro 100 UNIT/ML 3 ML VIAL SUBCUT ×5 (09:01→23:10)
[2021-08-03] MEDS: HaloperidoL 5 MG TABLET PO (09:02)
[2021-08-03] MEDS: Divalproex Sodium 500 MG TABLET.DR PO (09:02)
[2021-08-03 12:39] LABS: Glucose, Whole Blood 374 mg/dL (60-115)
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
[2021-08-03 17:10] LABS: Glucose, Whole Blood 460 mg/dL (60-115)
[2021-08-03 18:00] VITALS: BP 134/78; PULSE 97; TEMP 36.8; O2SAT 95
[2021-08-03 19:54] LABS: Glucose, Whole Blood 422 mg/dL (60-115)
[2021-08-03] MEDS: Divalproex Sodium 500 MG TABLET.DR 1000 MG PO (20:01)
[2021-08-03] MEDS: HaloperidoL 5 MG TABLET 10 MG PO (20:02)
[2021-08-03 22:20] LABS: Glucose, Whole Blood 325 mg/dL (60-115)
[2021-08-04 08:42] LABS: Glucose, Whole Blood 337 mg/dL (60-115)
[2021-08-04 08:47] LABS: Valproate 57.6 mcg/mL (50.0-100.0)
[2021-08-04] MEDS: HaloperidoL 5 MG TABLET PO (09:16)
[2021-08-04] MEDS: Divalproex Sodium 500 MG TABLET.DR 1000 MG PO (09:16)
[2021-08-04] MEDS: Insulin Glargine,Hum.rec.anlog 100 UNIT/ML 10 ML VIAL 112 UNIT SUBCUT (09:17)
[2021-08-04] MEDS: Insulin Lispro 100 UNIT/ML 3 ML VIAL SUBCUT (09:17)
[2021-08-04 10:17] VITALS: BP 122/65; PULSE 70; RESP 14; TEMP 36.5; O2SAT 95
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
[2021-08-05 07:36] LABS: Glucose, Whole Blood 489 mg/dL (60-115)
== END 2021-08-04 11:35 | disposition home or self-care (01) | DRG 753 ==
LOC: HO.ED 07-30 10:51 → HO.PADLT16 07-30 11:58
PROVIDERS: Emergency Medicine; Admitting Provider Psychiatry & Neurology Psychiatry; Emergency Provider Emergency Medicine; PCP General Practice; Visit Provider Social Worker
DX: F31.81 Bipolar II disorder (principal); R45.851 Suicidal ideations; R45.850 Homicidal ideations; F60.3 Borderline personality disorder; E11.65 Type 2 diabetes mellitus with hyperglycemia; F17.210 Nicotine dependence, cigarettes, uncomplicated; F43.10 Post-traumatic stress disorder, unspecified; Z71.6 Tobacco abuse counseling; Z20.822 Contact with and (suspected) exposure to COVID-19; Z91.11 Patient's noncompliance with dietary regimen; Z79.4 Long term (current) use of insulin; Z79.899 Other long term (current) drug therapy
CPT/HCPCS: 36415; 73120; 80053; 80061; 80164; 80307; 81001; 82009; 82077; 82607; 82746; 82947; 83036; 84443; 87086; 87088; 87635; 93005; 99285

== ENCOUNTER 2021-10-02 18:39 | Emergency (ER) | payer MEDICAID, SELFPAY ==
[2021-10-02 19:03] VITALS: BP 115/76; PULSE 99; RESP 16; TEMP 36.5; O2SAT 95; BMI 53.9
[2021-10-02 19:06] LABS: Glucose, Whole Blood 482 mg/dL (60-115)
[2021-10-02 19:45] LABS: Appearance Urine CLEAR; Color Urine YELLOW; Glucose Urine UA >=1000 MG/DL (NEG); Leukocyte Esterase Urine NEG (NEG); Nitrite Urine NEG (NEG); PH 5.5 (5.0-8.0); Specific Gravity - Urine 1.015 (1.005-1.025); Urine Blood NEG (NEG); Urine Ketones 5 MG/DL (NEG); Urine Protein NEG (NEG-TRACE)
[2021-10-02] MEDS: Insulin Lispro 100 UNIT/ML 3 ML VIAL 8 UNIT SUBCUT (19:50)
[2021-10-02 19:54] LABS: MANUAL DIFF FLAG NO
[2021-10-02 19:54] LABS: RBC Urine 0 /HPF (0); WBC Urine 0-2 /HPF (0-4)
[2021-10-02 20:00] LABS: COVID-19 Test Negative (Negative); IDNOW Serial# 55D5AD1C
[2021-10-02 20:00] LABS: Basophils Absolute Auto 0.1 X10*3/uL (0.0-0.2); Basophils Percent Auto 0.4 % (0-2); Eosinophils Absolute Auto 0.1 X10*3/uL (0.0-0.4); Eosinophils Percent Auto 0.9 % (0-4); Hematocrit 48.3 % (42.0-52.0); Hemoglobin 16.9 g/dl (14.0-18.0); Imm Gran Abs Auto 0.05 X10*3/uL (0.00-0.03); Imm Gran Pct Auto 0.4 % (0.0-0.4); Lymphocytes Absolute Auto 4.1 X10*3/uL (1.2-4.9); Mean Corpuscular Hemoglobin 29.8 pg (27.0-33.0); Mean Corpuscular Volume 85.2 fL (80.0-98.0); Mean Platelet Volume 11.6 fL (9.4-12.4); Monocytes Absolute Auto 0.9 X10*3/uL (0.1-1.2); Monocytes Percent Auto 7.4 % (2-11); Neutrophils Absolute Auto 6.8 x10*3/uL (2.0-8.3); Neutrophils Percent Auto 56.9 % (45-73); Platelet Count 221 X10*3/uL (160-400); Red Blood Count 5.67 X10*6/uL (4.60-5.80); Red Cell Distribution Width 11.8 % (11.0-16.0)
[2021-10-02 20:01] LABS: Amphetamine Screen Urine Not Detected (Not Detect); Barbiturates, Urine Not Detected (Not Detect); Benzodiazepines Screen Urine Not Detected (Not Detect); Cannabinoid Screen Urine Not Detected (Not Detect); Cocaine Screen Urine Not Detected (Not Detect); Fentanyl, urine Not Detected (Not Detect); Opiate Screen Urine Not Detected (Not Detect); Phencyclidine Screen Urine Not Detected (Not Detect)
--- NOTE | 2021-10-02 20:02 | ED_ITS ---
HPI - Psych General Chief Complaint: Psychiatric Symptoms Stated Complaint: psych Evaluation Time Seen by Provider: 10/02/21 19:18 Source: patient and EMS Mode of arrival: EMS Limitations: no limitations History of Present Illness HPI Narrative: Patient is a 21 year old male presenting to the emergency department today with suicidal ideation. Patient states that he is feeling suicidal and is hearing a uditory hallucinations. Patient denies any dizziness, lightheadedness, abdominal pain, nausea, vomiting, fever, chills, blurry vision, double vision, loss of vision, chest pain, difficulty breathing, shortness of breath, back pain, night sweats, pain with urination, increased urinary frequency, increased urinary urgency, blood in his urine or stool, syncope or a near syncopal episode, recent trauma or falls, bowel incontinence, bladder incontinence, bowel retention, bladder retention, or any other complaints at this time. MD complaint: suicidal ideation Onset (ago): hour(s) Duration: constant History of same: Yes Relieving factors: none Exacerbating factors: none Associated psychiatric symptoms: depression, suicidal ideation and auditory hallucinations Associated symptoms: denies other symptoms Treatments prior to arrival: none If self harm: admits thoughts of self harm Related Data Home Medications Medication Instructions Recorded Confirmed insulin degludec 200 unit/mL (3 160 unit SUBCUT DAILY 07/29/21 10/02/21 mL) subcutaneous pen (Tresiba FlexTouch U-200 insulin) insulin lispro 100 unit/mL See Protocol SUBCUT QIDACHS 07/29/21 10/02/21 subcutaneous solution (Humalog U-100 Insulin) lorazepam 1 mg tablet 1 tab PO BID PRN 07/29/21 10/02/21 bupropion HCl 150 mg 24 hr tablet, 1 tab PO DAILY 10/02/21 10/02/21 extended release divalproex 500 mg tablet,delayed 1,000 mg PO BEDTIME 10/02/21 10/02/21 release divalproex 500 mg tablet,delayed 500 mg PO QAM 10/02/21 10/02/21 release metformin 500 mg tablet,extended 1 tab PO QPM 10/02/21 10/02/21 release 24 hr omeprazole 20 mg capsule,delayed 1 cap PO DAILY 10/02/21 10/02/21 release Previous Rx's Medication Instructions Recorded haloperidol 5 mg tablet 5 mg PO DAILY #30 tab 08/04/21 haloperidol 5 mg tablet 10 mg PO BEDTIME #60 tab 08/04/21 trazodone 100 mg tablet 100 mg PO BEDTIME PRN #30 tab 08/04/21 Allergies Allergy/AdvReac Type Severity Reaction Status Date / Time No Known Allergies Allergy Verified 07/07/21 13:26 [No Known Allergies*] Review of Systems Constitutional: Constitutional: Reports no additional constitutional complaints, Denies chills, Denies fever(s) and Denies night sweats Eyes: Eyes: Reports no additional eye complaints, Denies blurry vision, Denies change in vision, Denies diplopia, Denies eye discharge, Denies loss of vision and Denies eye pain ENT: Denies dizziness Cardiovascular: Cardiovascular: Reports no additional cardiovascular complaints, Denies chest pain, Denies lightheadedness, Denies Loss of Consciousness and Denies dyspnea Respiratory: Respiratory: Reports no additional respiratory complaints and Denies dyspnea Gastrointestinal: Gastrointestinal: Reports no additional gastrointestinal complaints, Denies abdominal pain, Denies melena, Denies hematochezia, Denies change in bowel habits and Denies change in stool character Genitourinary: Genitourinary: Reports no additional male genitourinary complaints, Denies hematuria, Denies oliguria, Denies difficulty urinating, Denies dysuria, Denies urinary frequency, Denies urinary hesitancy, Denies urinary incontinence and Denies urinary urgency Musculoskeletal: Musculoskeletal: Reports no additional musculoskeletal complaints, Denies numbness and Denies tingling Neurologic: Denies dizziness, Denies loss of vision, Denies numbness and Denies tingling Psychiatric: Psychiatric: Reports no additional psychiatric complaints, Reports depression and Reports homicidal ideation Endocrine: Endocrine: Reports no additional endocrine complaints Hematologic/Lymphatic: Hematologic/Lymphatic: Reports no additional hematologic/lymphatic complaints Allergic/Immunologic: Allergic/Immunologic: Reports no additional allergic/immunologic complaints PMFSH Past Medical History Attestation statement: The following information was validated with the patient. Source: old records reviewed Medical History Anxiety Asthma Bipolar disorder Bipolar disorder with psychotic features Concussion Depression Depression Diabetes mellitus, type 2 Diabetes type 2, uncontrolled PTSD (post-traumatic stress disorder) Social History Social History Household Members: Family Housing: Apartment Do you presently have visiting nurse or other home services: No (does not want one) Alcohol intake: never Patient Tobacco Use Status: Current everyday Tobacco user Tobacco use type: Cigarette Cigarette Packs Per Day: 1 Cigarettes Per Day: 20.0 Years Smoked: 3 e-Cigarette/Vaping Use: Currently Using Second Hand Smoke Exposure: Yes Substance Use Type: Marijuana Advance Directives: No service: No Sexual orientation: Don't Know Physical Exam Vital Signs: Vital Signs: Last Vital Signs Temp 97.7 F 10/02/21 19:03 Pulse 99 10/02/21 19:03 Resp 16 10/02/21 19:03 BP 115/76 10/02/21 19:03 Pulse Ox 95 10/02/21 19:03 BMI result Body Mass Index 53.9 Const: General: cooperative, no acute distress, alert and awake Nutritional Appearance: well nourished Orientation/consciousness: patient oriented x3 Limitations: no limitations HEENT: Head: Yes normal to inspection and Yes atraumatic Ears: hearing grossly normal bilaterally and external ears normal General nose exam: Normal external nose present, no nasal discharge noted and no epistaxis Face and sinus: Yes normal facial exam, No abrasion and No laceration Mouth: Normal oral and palatal mucosa present, no drooling and no muffled voice Eyes: General: appearance normal, both eyes and all related structures Periorbital: periorbital findings normal Eyelids: Yes eyelids normal Conjunctivae: conjunctivae normal Pupils: Equal, round and reactive pupils present EOM: EOMs intact bilaterally Neck: Neck: Yes normal visual inspection, Yes full ROM and Yes no lymphadenopathy Chest: Chest palpation & inspection: normal inspection of the chest Resp: Effort & Inspection: normal respiratory effort and able to speak in complete sentences Auscultation: clear to auscultation bilaterally Cardio: Rate: regular rate Rhythm: regular rhythm GI: Inspection: Yes normal to inspection Neuro: General: patient oriented x3 and moves all extremities Cranial nerves: Yes Equal, round and reactive pupils present Cognition (Neuro): normal cognition Motor exam (neuro): 5/5 motor strength present throughout Sensory Exam: Normal double simultaneous stimulation for sensation Coordination: [id number] test normal Extrem: General: Yes normal to inspection, Yes full ROM and Yes capillary refill normal Psych: Appearance: grossly normal Mental Status: mental status grossly normal Affect: normal affect Attitude: cooperative Thought process: Normal thought process present Thought content: Suicidality present Insight: Fair insight present (Psych) MDM - Psych MDM Narrative Medical decision making narrative: Patient is a 21 year old male presenting to the emergency department today with suicidal ideation and auditory hallucinations. Patient's physical exam was unremarkable. Patient's blood work showed an elevated BS but was otherwise unremarkable. Patient has a known history of uncontrolled diabetes. Insulin was immediately ordered for the patient and his sugar improved. I explained my physical exam findings as well as all test results to the patient. I answered all questions asked by the patient. Patient is under physician observation at this time while he awaits a mental health consultation. Differential Diagnosis Differential diagnosis: Likely suicidal ideation and depression Medical Records Attestation: I reviewed the patient's medical records. Lab Data Attestation: I reviewed the patient's lab results. Result diagrams: 10/02/21 19:44 10/02/21 19:44 Labs: Lab Results 10/02/21 10/02/21 10/02/21 Range/Units 19:02 19:35 19:35 WBC (4.8-10.8) X10*3/uL RBC (4.60-5.80) X10*6/uL Hgb (14.0-18.0) g/dl Hct (42.0-52.0) % MCV (80.0-98.0) fL MCH (27.0-33.0) pg MCHC (31.0-36.0) g/dl RDW (11.0-16.0) % Plt Count (160-400) X10*3/uL MPV (9.4-12.4) fL Immature Gran % (Auto) (0.0-0.4) % Neut % (Auto) (45-73) % Lymph % (Auto) (20-40) % [place] % (Auto) (2-11) % Eos % (Auto) (0-4) % Baso % (Auto) (0-2) % Lymph # (Auto) (1.2-4.9) X10*3/uL [place] # (Auto) (0.1-1.2) X10*3/uL Eos # (Auto) (0.0-0.4) X10*3/uL Baso # (Auto) (0.0-0.2) X10*3/uL Abs Immat Gran (auto) (0.00-0.03) X10*3/uL Absolute Neuts (auto) (2.0-8.3) x10*3/uL Absolute Nucleated RBC (0.0-0.012) X10*3/uL Nucleated RBC % (auto) (0.0-0.2) /100WBC Sodium (135-145) mmol/L Potassium (3.3-5.1) mmol/L Chloride (96-108) mmol/L Carbon Dioxide (22-29) mmol/L Anion Gap (12-20) BUN (9-16) mg/dL Creatinine (0.5-1.4) mg/dL Estim Creat Clear Calc Estimated GFR POC Glucose 482 H* (60-115) mg/dL Random Glucose (60-115) mg/dL Calcium (8.4-10.2) mg/dL Urine Color Urine Appearance Urine pH (5.0-8.0) Ur Specific [place] (1.005-1.025) Urine Protein (NEG-TRACE) MG/DL Urine Glucose (UA) (NEG) MG/DL Urine Ketones (NEG) MG/DL Urine Blood (NEG) Urine Nitrite (NEG) Ur Leukocyte Esterase (NEG) Urine RBC (0) /HPF Urine WBC (0-4) /HPF Ur Squamous Epith Cells /LPF Urine Bacteria /LPF Urine Opiates Screen Not Detected (Not Detect) Urine Fentanyl Screen Not Detected (Not Detect) Ur Barbiturates Screen Not Detected (Not Detect) Valproic Acid (50.0-100.0) mcg/mL Ur Phencyclidine Scrn Not Detected (Not Detect) Ur Amphetamines Screen Not Detected (Not Detect) U Benzodiazepines Scrn Not Detected (Not Detect) Urine Cocaine Screen Not Detected (Not Detect) U Marijuana (THC) Screen Not Detected (Not Detect) Ethyl Alcohol mg/dL COVID-19 ([facility]) Negative (Negative) COVID-19 Clin Com See Note 10/02/21 10/02/21 10/02/21 Range/Units 19:35 19:44 19:44 WBC 12.0 H (4.8-10.8) X10*3/uL RBC 5.67 (4.60-5.80) X10*6/uL Hgb 16.9 (14.0-18.0) g/dl Hct 48.3 (42.0-52.0) % MCV 85.2 (80.0-98.0) fL MCH 29.8 (27.0-33.0) pg MCHC 35.0 (31.0-36.0) g/dl RDW 11.8 (11.0-16.0) % Plt Count 221 (160-400) X10*3/uL MPV 11.6 (9.4-12.4) fL Immature Gran % (Auto) 0.4 (0.0-0.4) % Neut % (Auto) 56.9 (45-73) % Lymph % (Auto) 34.0 (20-40) % [place] % (Auto) 7.4 (2-11) % Eos % (Auto) 0.9 (0-4) % Baso % (Auto) 0.4 (0-2) % Lymph # (Auto) 4.1 (1.2-4.9) X10*3/uL [place] # (Auto) 0.9 (0.1-1.2) X10*3/uL Eos # (Auto) 0.1 (0.0-0.4) X10*3/uL Baso # (Auto) 0.1 (0.0-0.2) X10*3/uL Abs Immat Gran (auto) 0.05 H (0.00-0.03) X10*3/uL Absolute Neuts (auto) 6.8 (2.0-8.3) x10*3/uL Absolute Nucleated RBC 0.000 (0.0-0.012) X10*3/uL Nucleated RBC % (auto) 0.0 (0.0-0.2) /100WBC Sodium (135-145) mmol/L Potassium (3.3-5.1) mmol/L Chloride (96-108) mmol/L Carbon Dioxide (22-29) mmol/L Anion Gap (12-20) BUN (9-16) mg/dL Creatinine (0.5-1.4) mg/dL Estim Creat Clear Calc Estimated GFR POC Glucose (60-115) mg/dL Random Glucose (60-115) mg/dL Calcium (8.4-10.2) mg/dL Urine Color YELLOW Urine Appearance CLEAR Urine pH 5.5 (5.0-8.0) Ur Specific [place] 1.015 (1.005-1.025) Urine Protein NEG (NEG-TRACE) MG/DL Urine Glucose (UA) >=1000 H (NEG) MG/DL Urine Ketones 5 (NEG) MG/DL Urine Blood NEG (NEG) Urine Nitrite NEG (NEG) Ur Leukocyte Esterase NEG (NEG) Urine RBC 0 (0) /HPF Urine WBC 0-2 (0-4) /HPF Ur Squamous Epith Cells NONE /LPF Urine Bacteria NONE /LPF Urine Opiates Screen (Not Detect) Urine Fentanyl Screen (Not Detect) Ur Barbiturates Screen (Not Detect) Valproic Acid (50.0-100.0) mcg/mL Ur Phencyclidine Scrn (Not Detect) Ur Amphetamines Screen (Not Detect) U Benzodiazepines Scrn (Not Detect) Urine Cocaine Screen (Not Detect) U Marijuana (THC) Screen (Not Detect) Ethyl Alcohol < 10 mg/dL COVID-19 ([facility]) (Negative) COVID-19 Clin Com 10/02/21 10/02/21 10/02/21 Range/Units 19:44 19:44 21:43 WBC (4.8-10.8) X10*3/uL RBC (4.60-5.80) X10*6/uL Hgb (14.0-18.0) g/dl Hct (42.0-52.0) % MCV (80.0-98.0) fL MCH (27.0-33.0) pg MCHC (31.0-36.0) g/dl RDW (11.0-16.0) % Plt Count (160-400) X10*3/uL MPV (9.4-12.4) fL Immature Gran % (Auto) (0.0-0.4) % Neut % (Auto) (45-73) % Lymph % (Auto) (20-40) % [place] % (Auto) (2-11) % Eos % (Auto) (0-4) % Baso % (Auto) (0-2) % Lymph # (Auto) (1.2-4.9) X10*3/uL [place] # (Auto) (0.1-1.2) X10*3/uL Eos # (Auto) (0.0-0.4) X10*3/uL Baso # (Auto) (0.0-0.2) X10*3/uL Abs Immat Gran (auto) (0.00-0.03) X10*3/uL Absolute Neuts (auto) (2.0-8.3) x10*3/uL Absolute Nucleated RBC (0.0-0.012) X10*3/uL Nucleated RBC % (auto) (0.0-0.2) /100WBC Sodium 136 (135-145) mmol/L Potassium 4.1 (3.3-5.1) mmol/L Chloride 101 (96-108) mmol/L Carbon Dioxide 22 (22-29) mmol/L Anion Gap 17 (12-20) BUN 7 L (9-16) mg/dL Creatinine 1.12 (0.5-1.4) mg/dL Estim Creat Clear Calc 156.9 Estimated GFR > 60 POC Glucose 292 H (60-115) mg/dL Random Glucose 385 H* (60-115) mg/dL Calcium 9.4 (8.4-10.2) mg/dL Urine Color Urine Appearance Urine pH (5.0-8.0) Ur Specific [place] (1.005-1.025) Urine Protein (NEG-TRACE) MG/DL Urine Glucose (UA) (NEG) MG/DL Urine Ketones (NEG) MG/DL Urine Blood (NEG) Urine Nitrite (NEG) Ur Leukocyte Esterase (NEG) Urine RBC (0) /HPF Urine WBC (0-4) /HPF Ur Squamous Epith Cells /LPF Urine Bacteria /LPF Urine Opiates Screen (Not Detect) Urine Fentanyl Screen (Not Detect) Ur Barbiturates Screen (Not Detect) Valproic Acid 55.1 (50.0-100.0) mcg/mL Ur Phencyclidine Scrn (Not Detect) Ur Amphetamines Screen (Not Detect) U Benzodiazepines Scrn (Not Detect) Urine Cocaine Screen (Not Detect) U Marijuana (THC) Screen (Not Detect) Ethyl Alcohol mg/dL COVID-19 ([facility]) (Negative) COVID-19 Clin Com Discharge Plan Discharge Clinical Impression: Diabetes type 2, uncontrolled, 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, Feeling suicidal Patient Disposition: Still a Patient Prescriptions: No Action lorazepam 1 mg tablet 1 tab PO BID PRN (Reason: anxiety) 0RF Tresiba FlexTouch U-200 200 unit/mL (3 mL) insulin pen 160 unit subcut DAILY 0RF insulin lispro [Humalog U-100 Insulin] 100 unit/mL solution See Protocol unit subcut QIDACHS 0RF Protocol: Insulin Correction Scale Less than or equal to 110 ---- Give (units): 0 111 to 150 Give (units): 0 151 to 200 Give (units): 2 201 to 250 Give (units): 4 251 to 300 Give (units): 6 301 to 350 Give (units): 8 Greater than 350 Give (units): 10 Call MD if Blood Glucose > : 350 haloperidol 5 mg Tablet 5 mg PO DAILY Qty: 30 0RF haloperidol 5 mg Tablet 10 mg PO BEDTIME Qty: 60 0RF trazodone 100 mg Tablet 100 mg PO BEDTIME PRN (Reason: Insomnia) Qty: 30 0RF bupropion HCl 150 mg tablet extended release 24 hr 1 tab PO DAILY 0RF divalproex 500 mg tablet,delayed release (DR/EC) 500 mg PO QAM 0RF divalproex 500 mg tablet,delayed release (DR/EC) 1,000 mg PO BEDTIME 0RF metformin 500 mg tablet extended release 24 hr 1 tab PO QPM 0RF omeprazole 20 mg capsule,delayed release(DR/EC) 1 cap PO DAILY 0RF Print Language: Slovak
[2021-10-02 20:12] LABS: Ethanol < 10 mg/dL
[2021-10-02 20:26] LABS: Valproate 55.1 mcg/mL (50.0-100.0)
[2021-10-02 20:29] LABS: Anion Gap 17 (12-20); Blood Urea Nitrogen 7 mg/dL (9-16); Calcium 9.4 mg/dL (8.4-10.2); Carbon Dioxide 22 mmol/L (22-29); Chloride 101 mmol/L (96-108); Creatinine Clr Calc Pharmacy 156.9; Estimated Glomerular Filt Rate > 60; Glucose Random 385 mg/dL (60-115); Potassium 4.1 mmol/L (3.3-5.1); Sodium 136 mmol/L (135-145)
[2021-10-02 21:48] LABS: Glucose, Whole Blood 292 mg/dL (60-115)
[2021-10-02] MEDS: Insulin Lispro 100 UNIT/ML 3 ML VIAL SUBCUT (22:30)
[2021-10-02] MEDS: HaloperidoL 5 MG TABLET 10 MG PO (22:35)
[2021-10-03 06:50] LABS: Glucose, Whole Blood 307 mg/dL (60-115)
--- NOTE | 2021-10-03 06:55 | PC.NURSE ---
Patient slept through the night, no distress observed/reported, behavior appropriate, medication compliant, POC was 307 at 0647, N referral completed/confirmed/pending ETA, VSS, will continue to monitor.
[2021-10-03] MEDS: Insulin Lispro 100 UNIT/ML 3 ML VIAL SUBCUT ×4 (07:20→21:43)
[2021-10-03] MEDS: Insulin Glargine,Hum.rec.anlog 100 UNIT/ML 10 ML VIAL SUBCUT (08:53)
[2021-10-03] MEDS: buPROPion HCl XL 150 MG TAB.ER.24H PO (08:54)
[2021-10-03] MEDS: HaloperidoL 5 MG TABLET PO (08:54)
[2021-10-03] MEDS: Divalproex Sodium 500 MG TABLET.DR PO (08:54)
--- NOTE | 2021-10-03 09:03 | PC.NURSE ---
YERFIN at bedside to meet with pt
[2021-10-03 10:38] VITALS: BP 127/63; PULSE 67; RESP 18; TEMP 36.8; O2SAT 95
[2021-10-03 12:21] LABS: Glucose, Whole Blood 313 mg/dL (60-115)
[2021-10-03 16:00] VITALS: BP 132/66; PULSE 89; TEMP 36.6; O2SAT 97
--- NOTE | 2021-10-03 17:08 | PC.NURSE ---
pt to go to [facility]
[2021-10-03 17:14] LABS: Glucose, Whole Blood 361 mg/dL (60-115)
--- NOTE | 2021-10-03 19:26 | PC.NURSE ---
Care assumed at thsi time, report from Aby NGUYỄN. Plan for transfer to [facility], US aware and working on transport at thsi time.
[2021-10-03 21:37] LABS: Glucose, Whole Blood 438 mg/dL (60-115)
[2021-10-03] MEDS: LORazepam 1 MG TABLET PO (21:42)
[2021-10-03] MEDS: HaloperidoL 5 MG TABLET 10 MG PO (21:42)
== END 2021-10-03 23:51 ==
PROVIDERS: Physician Assistant Medical; Emergency Provider Emergency Medicine Emergency Medical Services
DX: F31.81 Bipolar II disorder (principal); R45.851 Suicidal ideations; E11.65 Type 2 diabetes mellitus with hyperglycemia; Z20.822 Contact with and (suspected) exposure to COVID-19; R44.0 Auditory hallucinations; F60.3 Borderline personality disorder; F41.9 Anxiety disorder, unspecified; F43.10 Post-traumatic stress disorder, unspecified; F17.200 Nicotine dependence, unspecified, uncomplicated; Z79.4 Long term (current) use of insulin; Z79.899 Other long term (current) drug therapy
CPT/HCPCS: 36415; 80048; 80164; 80307; 81001; 82077; 82947; 85025; 87635; 99285

== ENCOUNTER 2021-11-03 23:09 | Inpatient (IN) | payer OTHER, MEDICAID, SELFPAY ==
[2021-11-03 23:27] VITALS: BP 127/75; PULSE 106; RESP 16; TEMP 37.1; O2SAT 96; BMI 50.9
[2021-11-04] VITALS: BP 132/75; PULSE 101; RESP 19; O2SAT 97
[2021-11-04 00:01] LABS: Basophils Percent Auto 0.3 % (0-2); Eosinophils Absolute Auto 0.1 X10*3/uL (0.0-0.4); Eosinophils Percent Auto 0.7 % (0-4); Hemoglobin 16.7 g/dl (14.0-18.0); Imm Gran Abs Auto 0.06 X10*3/uL (0.00-0.03); Imm Gran Pct Auto 0.5 % (0.0-0.4); Lymphocytes Absolute Auto 3.4 X10*3/uL (1.2-4.9); Lymphocytes Percent Auto 28.8 % (20-40); MANUAL DIFF FLAG NO; Mean Corpuscular HGB Conc 34.8 g/dl (31.0-36.0); Mean Corpuscular Hemoglobin 29.3 pg (27.0-33.0); Mean Corpuscular Volume 84.2 fL (80.0-98.0); Mean Platelet Volume 11.1 fL (9.4-12.4); Monocytes Absolute Auto 1.1 X10*3/uL (0.1-1.2); Neutrophils Absolute Auto 7.2 x10*3/uL (2.0-8.3); Neutrophils Percent Auto 60.7 % (45-73); Platelet Count 266 X10*3/uL (160-400); Red Cell Distribution Width 11.9 % (11.0-16.0); White Blood Count 11.8 X10*3/uL (4.8-10.8)
[2021-11-04 00:14] LABS: Ethanol < 10 mg/dL
[2021-11-04 00:17] LABS: Amphetamine Screen Urine Not Detected (Not Detect); Barbiturates, Urine Not Detected (Not Detect); Benzodiazepines Screen Urine Not Detected (Not Detect); Cannabinoid Screen Urine Not Detected (Not Detect); Cocaine Screen Urine Not Detected (Not Detect); Fentanyl, urine Not Detected (Not Detect); Opiate Screen Urine Not Detected (Not Detect); Phencyclidine Screen Urine Not Detected (Not Detect)
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
--- NOTE | 2021-11-04 01:53 | PC.NURSE ---
PT POC was 554 at this time PA was notify
[2021-11-04 02:05] LABS: Acetone, serum QL Small (Negative)
[2021-11-04 02:16] LABS: Alanine Aminotransferase 20 U/L (0-40); Alkaline Phosphatase 113 U/L (39-117); Anion Gap 18 (12-20); Aspartate Amino Transferase 14 U/L (5-37); Bilirubin Total 0.4 mg/dL (0.0-1.0); Blood Urea Nitrogen 14 mg/dL (9-16); Carbon Dioxide 20 mmol/L (22-29); Chloride 96 mmol/L (96-108); Creatinine Clr Calc Pharmacy 152.8; Estimated Glomerular Filt Rate > 60; Glucose Random 534 mg/dL (60-115); Sodium 130 mmol/L (135-145); Total Protein 7.4 g/dL (6.5-8.0)
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
[2021-11-04 02:30] LABS: Glucose, Whole Blood 554 mg/dL (60-115)
[2021-11-04] MEDS: Insulin Lispro 100 UNIT/ML 3 ML VIAL 10 UNIT SUBCUT (02:54)
[2021-11-04 05:53] VITALS: BP 99/64; PULSE 71; RESP 19; O2SAT 95
--- NOTE | 2021-11-04 06:53 | MHC.CARE ---
Samantha smart sheet submitted
--- NOTE | 2021-11-04 07:48 | PC.NURSE ---
sleeping and easily woken, refuses to change or comply w giving up belongings, security to bedside and pt allowed to leave sweatshirt on and security secured his belongings, pt argumentative about waiting for security for bathroom escort. pt denies si/hi says he said it because he was mad
[2021-11-04 09:15] LABS: Glucose, Whole Blood 356 mg/dL (60-115)
[2021-11-04 09:29] VITALS: BP 106/51; PULSE 68; RESP 19; O2SAT 93
--- NOTE | 2021-11-04 09:38 | PC.NURSE ---
refusing bloodwork still, allowed poc, informed, nad breakfast provided, laying in bed w sitter at bedside
[2021-11-04 14:29] VITALS: BP 124/56; PULSE 86; RESP 16; O2SAT 95
--- NOTE | 2021-11-04 16:03 | PC.NURSE ---
Patient received insulin this morning. Attempted to check POC but patient refused. Patient is not symptomatic.
--- NOTE | 2021-11-04 16:56 | PHA.MEDREC ---
Pharmacy Consult ? Medication Reconciliation Pharmacy has completed the medication reconciliation. Pt states that he does not take protonix
[2021-11-04 17:30] VITALS: BP 108/56; PULSE 82; RESP 18; TEMP 36.9; O2SAT 95
[2021-11-04 19:24] VITALS: BP 120/70; PULSE 93; RESP 20; O2SAT 95
[2021-11-04 19:49] LABS: Anion Gap 16 (12-20); Blood Urea Nitrogen 11 mg/dL (9-16); Calcium 9.6 mg/dL (8.4-10.2); Carbon Dioxide 22 mmol/L (22-29); Chloride 99 mmol/L (96-108); Creatinine Clr Calc Pharmacy 165.4; Estimated Glomerular Filt Rate > 60; Glucose Random 519 mg/dL (60-115); Potassium 4.2 mmol/L (3.3-5.1); Sodium 133 mmol/L (135-145)
[2021-11-04] MEDS: lamoTRIgine 25 MG TABLET 50 MG PO (20:09)
[2021-11-04] MEDS: Divalproex Sodium 500 MG TABLET.DR 1000 MG PO (20:09)
[2021-11-04] MEDS: HaloperidoL 5 MG TABLET PO (20:09)
[2021-11-04 20:10] LABS: COVID-19 Test Negative (Negative); IDNOW Serial# 16C4AD1C
[2021-11-04] MEDS: Insulin Lispro 100 UNIT/ML 3 ML VIAL SUBCUT (20:13)
[2021-11-04] MEDS: HaloperidoL 5 MG TABLET 10 MG PO (20:13)
[2021-11-04] MEDS: traZODone HCL 100 MG TABLET PO (20:13)
[2021-11-04] MEDS: Insulin Glargine,Hum.rec.anlog 100 UNIT/ML 10 ML VIAL SUBCUT (20:20)
[2021-11-04] MEDS: buPROPion HCl XL 150 MG TAB.ER.24H PO (20:20)
--- NOTE | 2021-11-04 20:26 | PC.NURSE ---
BS at 192 was 519, provider made aware, med rec completed, covered with 10 units of humalog with scheduled 100 units of lantus. complaint with night time medication, snacking lightly at this time, will continue to monitor.
[2021-11-04 21:31] LABS: Glucose, Whole Blood 530 mg/dL (60-115)
[2021-11-05 05:09] VITALS: BP 123/74; PULSE 84; RESP 17; O2SAT 95
--- NOTE | 2021-11-05 06:29 | PC.NURSE ---
Patient slept through the night, no distress observed/reported, behavior appropriate and non concerning at this time, per N disposition GERSON f/u in the morning, VSS, medication compliant, will continue to monitor.
[2021-11-05 06:50] LABS: Glucose, Whole Blood 348 mg/dL (60-115)
[2021-11-05 08:06] VITALS: RESP 19
--- NOTE | 2021-11-05 09:19 | PC.NURSE ---
[facility] AT BEDSIDE, PT AWARE OF PLAN OF CARE.
[2021-11-05] MEDS: buPROPion HCl XL 150 MG TAB.ER.24H PO (09:49)
[2021-11-05] MEDS: HaloperidoL 5 MG TABLET PO (09:49)
[2021-11-05] MEDS: Divalproex Sodium 500 MG TABLET.DR PO (09:49)
[2021-11-05] MEDS: Insulin Glargine,Hum.rec.anlog 100 UNIT/ML 10 ML VIAL SUBCUT (09:50)
[2021-11-05] MEDS: lamoTRIgine 25 MG TABLET 50 MG PO (09:50)
[2021-11-05] MEDS: Insulin Lispro 100 UNIT/ML 3 ML VIAL SUBCUT ×4 (09:50→21:51)
[2021-11-05 09:59] VITALS: BP 111/61; PULSE 97; RESP 18; TEMP 36.7; O2SAT 95
[2021-11-05 13:29] LABS: Glucose, Whole Blood 323 mg/dL (60-115)
[2021-11-05 14:26] LABS: COVID-19 Test Negative (Negative); IDNOW Serial# 16C4AD1C
[2021-11-05 14:31] VITALS: BP 117/67; PULSE 91; RESP 20; TEMP 36.7; O2SAT 94
--- NOTE | 2021-11-05 14:47 | ECG_ITS ---
Test Reason : MEDICAL CLEARANCE Blood Pressure : / mmHG Vent. Rate : 090 BPM Atrial Rate : 090 BPM P-R Int : 148 ms QRS Dur : 076 ms QT Int : 322 ms P-R-T Axes : 049 058 043 degrees QTc Int : 393 ms Normal sinus rhythm Nonspecific T wave abnormality Abnormal ECG When compared with ECG of 30-JUL-2021 09:02, No significant change was found Referred By: Tyrese Hoffman Electronically Signed By:ANIVAL MOROCHO MD
--- NOTE | 2021-11-05 14:49 | PHA.MEDREC ---
Addendum entered by Margarita Hernandez [facility] 11/06/21 07:09: pina rivas contacted about changed to the med rec and invega dose being due Addendum entered by Margarita Hernandez [facility] 11/05/21 15:06: Invega was due on 11/04/21 - per RN at [facility]. Original Note: Pharmacy Consult ? Medication Reconciliation Pharmacy has completed the medication reconciliation. DELMA Thibodeaux called up and said the patient is due for invega per patients mom. Contacted patients mom for med list and also contacted the [facility] for med list. The med rec is updated to include Invega. [facility] in [place] states patient is no longer on Lamictal or Trazodone.
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
--- NOTE | 2021-11-05 15:59 | PC.NURSE ---
pt pacing in hallway, asking for nicotine gum, will reach out to MD for order
[2021-11-05] MEDS: Nicotine Polacrilex 2 MG GUM BUCCAL (16:14)
[2021-11-05] MEDS: LORazepam 1 MG TABLET PO (16:47)
--- NOTE | 2021-11-05 18:06 | PC.NURSE ---
rose mary from [facility] here to pickup patient, dinner still not here so insulin has not been administered. ok to hold on POC per accepting nurse
[2021-11-05] MEDS: metFORMIN HCl ER 500 MG TAB.ER.24H PO (18:10)
[2021-11-05 18:26] LABS: Glucose, Whole Blood 429 mg/dL (60-115)
[2021-11-05 18:32] VITALS: BP 113/59; PULSE 95; RESP 20; TEMP 36.7; O2SAT 97
--- NOTE | 2021-11-05 18:33 | PC.NURSE ---
Patient arrived to unit alert, oriented x3. Dr. Zamora notified of elevated blood glucose on arrival, patient medicated per sliding scale.
[2021-11-05 18:54] VITALS: BMI 50.2
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
[2021-11-05 21:44] LABS: Glucose, Whole Blood 466 mg/dL (60-115)
[2021-11-05] MEDS: HaloperidoL 5 MG TABLET 10 MG PO (21:49)
[2021-11-05] MEDS: Divalproex Sodium 500 MG TABLET.DR 1000 MG PO (21:49)
[2021-11-06] MEDS: Insulin Glargine,Hum.rec.anlog 100 UNIT/ML 10 ML VIAL SUBCUT (08:58)
[2021-11-06] MEDS: Insulin Lispro 100 UNIT/ML 3 ML VIAL SUBCUT ×4 (08:58→21:09)
[2021-11-06] MEDS: buPROPion HCl XL 150 MG TAB.ER.24H PO (09:10)
[2021-11-06] MEDS: HaloperidoL 5 MG TABLET PO (09:10)
[2021-11-06] MEDS: Divalproex Sodium 500 MG TABLET.DR PO (09:10)
[2021-11-06] MEDS: lamoTRIgine 25 MG TABLET 50 MG PO (09:10)
[2021-11-06] MEDS: Nicotine Polacrilex 2 MG GUM BUCCAL ×5 (09:10→23:49)
[2021-11-06 09:29] VITALS: BP 90/44; PULSE 72; RESP 20; TEMP 36.3; O2SAT 95
--- NOTE | 2021-11-06 09:44 | P.CONHOSP_ITS ---
History of Present Illness Data of Consult Service Date: 11/06/21 Primary Care Provider: [facility] [place] HPI Reason for consult: Management of uncontrolled DM This is a 21 yo M with a PMH of DM -- uncontrolled, last A1C > 13 who is admitted to . Medical consult requested for management of his uncontrolled DM Pt seen and examined on the unit. He reports his current DM regime as: 160 units Triseba, 26 units Humalog and Metformin q day (dose unclear). He is not interested in talking about DM management. He denies any medical complaints. Review of Systems Review of Systems: negative except HPI [facility] Medical History Anxiety Asthma Bipolar disorder Bipolar disorder with psychotic features Concussion Depression Depression Diabetes mellitus, type 2 Diabetes type 2, uncontrolled PTSD (post-traumatic stress disorder) Social History Household Members: Family Household Members Other:: Mother, younger sister. Housing: Apartment Do you presently have visiting nurse or other home services: No Alcohol intake: never Patient Tobacco Use Status: Current everyday Tobacco user Tobacco use type: Cigarette Cigarette Packs Per Day: 1 Cigarettes Per Day: 4 Years Smoked: 4 years Smoked in Last 30 Days: Yes e-Cigarette/Vaping Use: Currently Using Second Hand Smoke Exposure: Yes Use of substances other than those prescribed or required for medical reasons: Yes Substance Use Type: Marijuana Last Used Substance Other:: States daily user but last reported use was 01/29/21 Currently Displaying Signs/Symptoms of Drug Intoxication Withdrawal: No Any prior treatment program specific to substance use: No Advance Directives: No Advance Directives Information Provided: No Advance Directives on File: No Do you have thoughts of harming others: None Do you have a plan to hurt others: No Plan Recently lost weight without trying: Unsure Nutrition Risks: No Nutritional Risk service: No Sexual orientation: Don't Know Meds Allergies Allergy/AdvReac Type Severity Reaction Status Date / Time No Known Allergies Allergy Verified 07/07/21 13:26 [No Known Allergies*] Active Medications: Current Medications Acetaminophen (Acetaminophen 325 Mg Tablet) 650 mg PO Q6H PRN PRN Reason: Headache/Pain Mild Scale (1-3) Al Hydroxide/Mg Hydroxide (Magnesium Hydrox/Alum Hydrox 30 Ml Oral.Susp) 30 ml PO Q6H PRN PRN Reason: Heartburn/Nausea Bupropion HCl (Bupropion Hcl Xl 150 Mg Tab.Er.24h) 150 mg PO DAILY [facility] Last Admin: 11/06/21 09:10 Dose: 150 mg Documented by: Divalproex Sodium (Divalproex Sodium 500 Mg Tablet.) 500 mg PO DAILY [facility] Last Admin: 11/06/21 09:10 Dose: 500 mg Documented by: Divalproex Sodium (Divalproex Sodium 500 Mg Tablet.) 1,000 mg PO BEDTIME [facility] Last Admin: 11/05/21 21:49 Dose: 1,000 mg Documented by: Glucose (Glucose Gel 15 Gm Gel..Gram.) 15 gm PO Q15M PRN; Protocol PRN Reason: per Hypoglycemia Standing Ord. Haloperidol (Haloperidol 5 Mg Tablet) 5 mg PO DAILY [facility] Last Admin: 11/06/21 09:10 Dose: 5 mg Documented by: Haloperidol (Haloperidol 5 Mg Tablet) 10 mg PO BEDTIME [facility] Last Admin: 11/05/21 21:49 Dose: 10 mg Documented by: Hydroxyzine HCl (Hydroxyzine Hcl 25 Mg Tablet) 25 mg PO BEDTIME PRN PRN Reason: Anxiety Insulin Glargine (Insulin Glargine,Hum.Rec.Anlog 100 Unit/Ml 10 Ml Vial) 100 unit SUBCUT DAILY [facility] Last Admin: 11/06/21 08:58 Dose: 100 unit Documented by: Insulin Human Lispro (Insulin Lispro 100 Unit/Ml 3 Ml Vial) 0 unit SUBCUT QIDACHS [facility]; Protocol Last Admin: 11/06/21 08:58 Dose: 8 unit Documented by: Lamotrigine (Lamotrigine 25 Mg Tablet) 50 mg PO DAILY [facility] Last Admin: 11/06/21 09:10 Dose: 50 mg Documented by: Lorazepam (Lorazepam 1 Mg Tablet) 1 mg PO BID PRN PRN Reason: anxiety Last Admin: 11/05/21 16:47 Dose: 1 mg Documented by: Magnesium Hydroxide (Milk Of Magnesia 30 Ml Oral.Susp) 30 ml PO DAILY PRN PRN Reason: Constipation Metformin HCl (Metformin Hcl Er 500 Mg Tab.Er.24h) 500 mg PO DAILY@1800 [facility] Last Admin: 11/05/21 18:10 Dose: 500 mg Documented by: Nicotine Polacrilex (Nicotine Polacrilex 2 Mg Gum) 2 mg BUCCAL Q2H PRN PRN Reason: Nicotine withdrawal Last Admin: 11/06/21 09:10 Dose: 2 mg Documented by: Trazodone HCl (Trazodone Hcl 100 Mg Tablet) 100 mg PO BEDTIME PRN PRN Reason: Insomnia Last Admin: 11/04/21 20:13 Dose: 100 mg Documented by: Home Medications Medication Instructions Recorded Confirmed Last Taken Type insulin degludec 200 unit/mL (3 160 unit SUBCUT DAILY 07/29/21 11/04/21 11/03/21 History mL) subcutaneous pen (Tresiba FlexTouch U-200 insulin) lorazepam 1 mg tablet 1 tab PO BID PRN 07/29/21 11/04/21 11/03/21 History bupropion HCl 150 mg 24 hr tablet, 1 tab PO DAILY 10/02/21 11/04/21 11/03/21 History extended release divalproex 500 mg tablet,delayed 1,000 mg PO BEDTIME 10/02/21 11/04/21 11/03/21 History release divalproex 500 mg tablet,delayed 500 mg PO QAM 10/02/21 11/04/21 11/03/21 History release metformin 500 mg tablet,extended 1 tab PO QPM 10/02/21 11/04/21 Unknown History release 24 hr insulin lispro 100 unit/mL See Protocol SUBCUT TIDAC 11/05/21 11/05/21 Unknown History subcutaneous pen (Humalog KwikPen (U-100) Insulin) paliperidone palmitate 234 mg/1.5 234 mg IM Q28D 11/05/21 11/05/21 10/07/21 History mL intramuscular syringe (Invega Sustenna) Physical Exam Vital Signs and Narrative: Vital Signs: Last Vital Signs Temp 97.4 F 11/06/21 09:29 Pulse 72 11/06/21 09:29 Resp 20 11/06/21 09:29 BP 90/44 L 11/06/21 09:29 Pulse Ox 95 11/06/21 09:29 BMI result Body Mass Index 50.2 Const: Other: General - no acute distress, appears comfortable Cardiovascular - regular rate and rhythm, S1-S2 Lungs - normal respiratory effort, clear to auscultation bilaterally, no wheezing Abdomen - soft, nontender, no rebound or guarding Extremities - no edema bilaterally Neuro - awake and alert, no focal deficits Results Labs CBC and Chem 7: 11/03/21 23:53 11/04/21 19:22 Labs: Laboratory Results - last 24 hr 11/05/21 11/05/21 11/05/21 13:24 13:31 18:23 POC Glucose 323 H 429 H* COVID-19 ([facility]) Negative COVID-19 Clin Com See Note 11/05/21 21:40 POC Glucose 466 H* COVID-19 ([facility]) COVID-19 Clin Com Assessment and Plan (1) Diabetes type 2, uncontrolled: Status: Acute Plan 21 yo M with uncontrolled DM admitted to [facility]. Medical consult requested for mgmt of his DM. 1. Uncontrolled DM with hyperglycemia A1C in Jul Currently insulin regime is lower than his baseline regime. Increase Lantus to 160 units; Add 10 units scheduled humalog in addition to sliding scale and increase Metformin to 1000mg with dinner. Also consider changing his diet from Regular to Diabetic diet. Attempted to provide DM education to the patient, but he does not seem ready for that conversation. Consider outpatient Dietary/Nutrition consult. 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 2. Morbid Obesity outpatient weight loss program referral should be considered. Will sign off. Please reconsult if sugars remains persistently elevated despite the above made changes.
[2021-11-06 10:39] LABS: Glucose, Whole Blood 322 mg/dL (60-115)
[2021-11-06] MEDS: Insulin Glargine,Hum.rec.anlog 100 UNIT/ML 10 ML VIAL 60 UNIT SUBCUT (10:47)
[2021-11-06 10:48] LABS: Glucose, Whole Blood 500 mg/dL (60-115)
--- NOTE | 2021-11-06 10:54 | PC.NURSE ---
New insulin orders acknowledged. POC completed prior to giving additional Lantus- provider aware, Lantus given as ordered. Patient notofied of changes made to insulin regimen.
--- NOTE | 2021-11-06 11:11 | HO.PSYCHPN ---
Subjective Subjective Date of Service: 11/06/21 Reason For Visit: si aggression Interim History: pt seen in his room. somnolent, cooperative with RN checking glucose and giving SSI. pt denies any SI, adamantly, and states he just wishes to go home. george sustenna dosing checked and 234 mg IM ordered, c/w Hx, to be given today (it was due yesterday). pt repeatedly falling asleep during interview, complains he did not sleep well last night bcse his roommate snores like a pig. no questions or requests for MD other than as above. per staff up for [employer], slept overnight. declined labs this morning, due for sustenna shot yesterday. Mental Status Exam Mental Status Exam Narrative: adequately dressed, lying in bed, somnolent. no PMA/PMR. cooperative. speech decr in rate, amount, loudness, tone. incr latency. thoughts linear and logical. affect constricted, hypo-intense, non-labile. mood good. denies SI/HI/AVH. Diagnostics Vital Signs (24Hr): Vital Signs - 24 hr 11/05/21 14:31 11/05/21 18:32 11/06/21 09:29 Temperature 98.0 F 98.0 F 97.4 F Pulse Rate 91 95 72 Respiratory Rate 20 20 20 Blood Pressure 117/67 113/59 L 90/44 L Pulse Oximetry 94 97 95 BMI result Body Mass Index 50.2 Labs Results: 11/03/21 23:53 11/04/21 19:22 Labs: Laboratory Results - last 48 hr 11/04/21 11/04/21 11/04/21 19:22 19:49 21:28 Sodium 133 L Potassium 4.2 Chloride 99 Carbon Dioxide 22 Anion Gap 16 BUN 11 Creatinine 1.09 Estim Creat Clear Calc 165.4 Estimated GFR > 60 POC Glucose 530 H* Random Glucose 519 H* Calcium 9.6 COVID-19 ([facility]) Negative COVID-19 Clin Com See Note 11/05/21 11/05/21 11/05/21 06:45 13:24 13:31 Sodium Potassium Chloride Carbon Dioxide Anion Gap BUN Creatinine Estim Creat Clear Calc Estimated GFR POC Glucose 348 H 323 H Random Glucose Calcium COVID-19 ([facility]) Negative COVID-19 Clin Com See Note 05/11/2211/05/21 11/06/21 18:23 21:40 08:32 Sodium Potassium Chloride Carbon Dioxide Anion Gap BUN Creatinine Estim Creat Clear Calc Estimated GFR POC Glucose 429 H* 466 H* 322 H Random Glucose Calcium COVID-19 ([facility]) COVID-19 Clin Com 11/06/21 10:43 Sodium Potassium Chloride Carbon Dioxide Anion Gap BUN Creatinine Estim Creat Clear Calc Estimated GFR POC Glucose 500 H* Random Glucose Calcium COVID-19 ([facility]) COVID-19 Clin Com Medications Medications Current Medications Acetaminophen (Acetaminophen 325 Mg Tablet) 650 mg PO Q6H PRN PRN Reason: Headache/Pain Mild Scale (1-3) Al Hydroxide/Mg Hydroxide (Magnesium Hydrox/Alum Hydrox 30 Ml Oral.Susp) 30 ml PO Q6H PRN PRN Reason: Heartburn/Nausea Bupropion HCl (Bupropion Hcl Xl 150 Mg Tab.Er.24h) 150 mg PO DAILY [facility] Last Admin: 11/06/21 09:10 Dose: 150 mg Documented by: Divalproex Sodium (Divalproex Sodium 500 Mg Tablet.) 500 mg PO DAILY [facility] Last Admin: 11/06/21 09:10 Dose: 500 mg Documented by: Divalproex Sodium (Divalproex Sodium 500 Mg Tablet.) 1,000 mg PO BEDTIME [facility] Last Admin: 11/05/21 21:49 Dose: 1,000 mg Documented by: Glucose (Glucose Gel 15 Gm Gel..Gram.) 15 gm PO Q15M PRN; Protocol PRN Reason: per Hypoglycemia Standing Ord. Haloperidol (Haloperidol 5 Mg Tablet) 5 mg PO DAILY [facility] Last Admin: 11/06/21 09:10 Dose: 5 mg Documented by: Haloperidol (Haloperidol 5 Mg Tablet) 10 mg PO BEDTIME [facility] Last Admin: 11/05/21 21:49 Dose: 10 mg Documented by: Hydroxyzine HCl (Hydroxyzine Hcl 25 Mg Tablet) 25 mg PO BEDTIME PRN PRN Reason: Anxiety Insulin Glargine (Insulin Glargine,Hum.Rec.Anlog 100 Unit/Ml 10 Ml Vial) 160 unit SUBCUT DAILY [facility] Insulin Human Lispro (Insulin Lispro 100 Unit/Ml 3 Ml Vial) 0 unit SUBCUT QIDACHS [facility]; Protocol Last Admin: 11/06/21 08:58 Dose: 8 unit Documented by: Insulin Human Lispro (Insulin Lispro 100 Unit/Ml 3 Ml Vial) 10 unit SUBCUT QIDACHS [facility] Lamotrigine (Lamotrigine 25 Mg Tablet) 50 mg PO DAILY [facility] Last Admin: 11/06/21 09:10 Dose: 50 mg Documented by: Lorazepam (Lorazepam 1 Mg Tablet) 1 mg PO BID PRN PRN Reason: anxiety Last Admin: 11/05/21 16:47 Dose: 1 mg Documented by: Magnesium Hydroxide (Milk Of Magnesia 30 Ml Oral.Susp) 30 ml PO DAILY PRN PRN Reason: Constipation Metformin HCl (Metformin Hcl Er 500 Mg Tab.Er.24h) 1,000 mg PO DAILY@1800 [facility] Nicotine Polacrilex (Nicotine Polacrilex 2 Mg Gum) 2 mg BUCCAL Q2H PRN PRN Reason: Nicotine withdrawal Last Admin: 11/06/21 09:10 Dose: 2 mg Documented by: Paliperidone Palmitate (Paliperidone Palmitate 234 Mg/1.5 Ml Syringe) 234 mg IM Q28D [facility] Trazodone HCl (Trazodone Hcl 100 Mg Tablet) 100 mg PO BEDTIME PRN PRN Reason: Insomnia Last Admin: 11/04/21 20:13 Dose: 100 mg Documented by: Allergies Allergies Allergy/AdvReac Type Severity Reaction Status Date / Time No Known Allergies Allergy Verified 07/07/21 13:26 [No Known Allergies*] Assessment & Plan Assessment & Plan (1) Diabetes type 2, uncontrolled: Status: Acute Code(s): E11.65 - Type 2 diabetes mellitus with hyperglycemia Assessment and Plan: 21 yo M with uncontrolled DM admitted to [facility]. Medical consult requested for mgmt of his DM. 1. Uncontrolled DM with hyperglycemia A1C in Jul Currently insulin regime is lower than his baseline regime. Increase Lantus to 160 units; Add 10 units scheduled humalog in addition to sliding scale and increase Metformin to 1000mg with dinner. Also consider changing his diet from Regular to Diabetic diet. Attempted to provide DM education to the patient, but he does not seem ready for that conversation. Consider outpatient Dietary/Nutrition consult. F/u with his director of surgery as outpatient. 2. Morbid Obesity outpatient weight loss program referral should be considered. Will sign off. Please reconsult if sugars remains persistently elevated despite the above made changes. (2) 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: Status: Acute Code(s): F31.81 - Bipolar II disorder Plan continue home meds for mental health and other aside from as above per hospitalist. give sustenna 234 mg IM x1 today as he missed it yesterday. stabilize, discharge home. I spent ___25___ minutes with the patient and/or on the patient floor today, greater than?50% of which was spent counseling/coordinating care. Reason for contiued inpatient stay Substantial Risk for: harm to others
[2021-11-06 12:34] LABS: Glucose, Whole Blood 345 mg/dL (60-115)
[2021-11-06] MEDS: Insulin Lispro 100 UNIT/ML 3 ML VIAL 10 UNIT SUBCUT ×3 (12:50→21:10)
[2021-11-06] MEDS: Paliperidone Palmitate 234 MG/1.5 ML SYRINGE IM (13:17)
[2021-11-06 16:58] LABS: Glucose, Whole Blood 478 mg/dL (60-115)
[2021-11-06] MEDS: metFORMIN HCl ER 500 MG TAB.ER.24H 1000 MG PO (17:01)
[2021-11-06 20:15] VITALS: BP 148/77; PULSE 79; RESP 18; TEMP 36.6; O2SAT 96
[2021-11-06 21:06] LABS: Glucose, Whole Blood 473 mg/dL (60-115)
[2021-11-06] MEDS: HaloperidoL 5 MG TABLET 10 MG PO (21:09)
[2021-11-06] MEDS: Divalproex Sodium 500 MG TABLET.DR 1000 MG PO (21:09)
[2021-11-06] MEDS: LORazepam 1 MG TABLET PO (23:49)
[2021-11-07] MEDS: lamoTRIgine 25 MG TABLET 50 MG PO (08:15)
[2021-11-07] MEDS: buPROPion HCl XL 150 MG TAB.ER.24H PO (08:16)
[2021-11-07] MEDS: Nicotine Polacrilex 2 MG GUM BUCCAL (08:16)
[2021-11-07] MEDS: HaloperidoL 5 MG TABLET PO (08:16)
[2021-11-07] MEDS: Divalproex Sodium 500 MG TABLET.DR PO (08:16)
[2021-11-07 08:19] VITALS: BP 138/90; PULSE 100; RESP 17; TEMP 36.1; O2SAT 98
[2021-11-07 08:22] LABS: Glucose, Whole Blood 447 mg/dL (60-115)
[2021-11-07] MEDS: Insulin Glargine,Hum.rec.anlog 100 UNIT/ML 10 ML VIAL 160 UNIT SUBCUT (09:11)
[2021-11-07] MEDS: Insulin Lispro 100 UNIT/ML 3 ML VIAL SUBCUT ×4 (09:12→21:14)
[2021-11-07] MEDS: Insulin Lispro 100 UNIT/ML 3 ML VIAL 10 UNIT SUBCUT ×4 (09:12→21:14)
[2021-11-07 12:25] LABS: Glucose, Whole Blood 404 mg/dL (60-115)
[2021-11-07 17:32] LABS: Glucose, Whole Blood 351 mg/dL (60-115)
[2021-11-07] MEDS: metFORMIN HCl ER 500 MG TAB.ER.24H 1000 MG PO ×2 (17:35→21:13)
[2021-11-07 18:00] VITALS: BP 121/75; PULSE 86; RESP 16; TEMP 36.6
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
[2021-11-07 20:59] LABS: Glucose, Whole Blood 530 mg/dL (60-115)
[2021-11-07] MEDS: HaloperidoL 5 MG TABLET 10 MG PO (21:13)
[2021-11-07] MEDS: Divalproex Sodium 500 MG TABLET.DR 1000 MG PO (21:13)
[2021-11-07] MEDS: traZODone HCL 100 MG TABLET PO (22:37)
[2021-11-08] MEDS: hydrOXYzine HCL 25 MG TABLET PO ×2 (00:22→23:20)
[2021-11-08] MEDS: LORazepam 1 MG TABLET PO ×2 (01:15→23:20)
[2021-11-08 09:14] LABS: Glucose, Whole Blood 246 mg/dL (60-115)
[2021-11-08] MEDS: Insulin Glargine,Hum.rec.anlog 100 UNIT/ML 10 ML VIAL 160 UNIT SUBCUT (09:24)
[2021-11-08] MEDS: Insulin Lispro 100 UNIT/ML 3 ML VIAL 10 UNIT SUBCUT ×4 (09:25→21:00)
[2021-11-08] MEDS: Insulin Lispro 100 UNIT/ML 3 ML VIAL SUBCUT ×4 (09:25→20:59)
[2021-11-08] MEDS: lamoTRIgine 25 MG TABLET 50 MG PO (09:25)
[2021-11-08] MEDS: HaloperidoL 5 MG TABLET PO (09:26)
[2021-11-08] MEDS: Divalproex Sodium 500 MG TABLET.DR PO (09:26)
[2021-11-08] MEDS: metFORMIN HCl ER 500 MG TAB.ER.24H 1000 MG PO ×2 (09:26→20:57)
[2021-11-08] MEDS: buPROPion HCl XL 150 MG TAB.ER.24H PO (09:26)
[2021-11-08 12:29] LABS: Glucose, Whole Blood 257 mg/dL (60-115)
[2021-11-08 17:52] LABS: Glucose, Whole Blood 380 mg/dL (60-115)
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
[2021-11-08 20:48] VITALS: BP 122/81; PULSE 96; RESP 18; TEMP 36.4; O2SAT 96
[2021-11-08 20:53] LABS: Glucose, Whole Blood 420 mg/dL (60-115)
[2021-11-08] MEDS: Divalproex Sodium 500 MG TABLET.DR 1000 MG PO (20:57)
[2021-11-08] MEDS: traZODone HCL 100 MG TABLET PO (20:57)
[2021-11-08] MEDS: HaloperidoL 5 MG TABLET 10 MG PO (20:57)
[2021-11-09] MEDS: Acetaminophen 325 MG TABLET 650 MG PO (06:16)
[2021-11-09 08:42] LABS: Glucose, Whole Blood 343 mg/dL (60-115)
[2021-11-09] MEDS: Divalproex Sodium 500 MG TABLET.DR PO (08:47)
[2021-11-09] MEDS: lamoTRIgine 25 MG TABLET 50 MG PO (08:47)
[2021-11-09] MEDS: buPROPion HCl XL 150 MG TAB.ER.24H PO (08:47)
[2021-11-09] MEDS: metFORMIN HCl ER 500 MG TAB.ER.24H 1000 MG PO (08:48)
[2021-11-09] MEDS: HaloperidoL 5 MG TABLET PO (08:48)
[2021-11-09] MEDS: Insulin Glargine,Hum.rec.anlog 100 UNIT/ML 10 ML VIAL 160 UNIT SUBCUT (09:01)
[2021-11-09] MEDS: Insulin Lispro 100 UNIT/ML 3 ML VIAL SUBCUT (09:02)
[2021-11-09] MEDS: Insulin Lispro 100 UNIT/ML 3 ML VIAL 10 UNIT SUBCUT (09:02)
[2021-11-09 09:34] VITALS: BP 125/72; PULSE 83; RESP 20; TEMP 36.2; O2SAT 97
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
[2021-11-09] MEDS: Nicotine Polacrilex 2 MG GUM BUCCAL (10:49)
--- NOTE | 2021-11-09 11:40 | PC.NURSE ---
Patient anxious for discharge today- denies SI/HI, denies AH/VH- ( I never had any of that! ) reports he is anxious to go home, have his mother's cooking and sleep in his own bed. Patient declined to receive mid day insulin or wait until after lunch, stating he will manage his blood sugars at home as prescribed by his MD. Patient is knowledgeable and familiar with diabetic care, denies any concerns. Reviewed discharge instructions, verbalized understanding, states he feels ready and safe to go. Reviewed belongings with patient, states he has received all his belongings back, denies any concerns.
== END 2021-11-09 11:20 | disposition home or self-care (01) | DRG 750 ==
LOC: HO.ED 11-04 19:31 → HO.PADLT16 11-05 17:47
PROVIDERS: Physician Assistant; Admitting Provider Psychiatry & Neurology Psychiatry; Emergency Provider Internal Medicine; Visit Provider Psychiatry & Neurology Psychiatry
DX: F25.0 Schizoaffective disorder, bipolar type (principal); R45.850 Homicidal ideations; Z68.43 Body mass index [BMI] 50.0-59.9, adult; D72.829 Elevated white blood cell count, unspecified; E11.65 Type 2 diabetes mellitus with hyperglycemia; F17.210 Nicotine dependence, cigarettes, uncomplicated; F60.3 Borderline personality disorder; Z20.822 Contact with and (suspected) exposure to COVID-19; E66.01 Morbid (severe) obesity due to excess calories; Z71.6 Tobacco abuse counseling; Z79.4 Long term (current) use of insulin; Z79.84 Long term (current) use of oral hypoglycemic drugs; Z79.899 Other long term (current) drug therapy
CPT/HCPCS: 36415; 80048; 80053; 80307; 82009; 82077; 82947; 85025; 87635; 93005; 99285; J2426

== ENCOUNTER 2021-11-21 14:29 | Emergency (ER) | payer MEDICAID, SELFPAY ==
--- NOTE | ~2021-11-21 | XR_ITS ---
EXAMINATION: RIGHT SHOULDER, RIGHT ELBOW AND RIGHT WRIST. CLINICAL INFORMATION: Skateboard accident. COMPARISON: None TECHNIQUE: 4 views right elbow. 4 views right wrist and 4 views right shoulder. FINDINGS: RIGHT SHOULDER: The glenohumeral and AC joint space is maintained normal. There is no fracture, dislocation or subluxation seen. RIGHT WRIST: There is no visible acute fracture, dislocation or subluxation. The soft tissues are normal. RIGHT ELBOW: There is no visible acute fracture, dislocation or subluxation seen. No abnormal joint effusion. The soft tissues are normal. XR/XR shoulder RT min 2V IMPRESSION: Unremarkable right elbow exam. Unremarkable right shoulder exam. Unremarkable right wrist exam.
--- NOTE | ~2021-11-21 | XR_ITS ---
EXAMINATION: RIGHT SHOULDER, RIGHT ELBOW AND RIGHT WRIST. CLINICAL INFORMATION: Skateboard accident. COMPARISON: None TECHNIQUE: 4 views right elbow. 4 views right wrist and 4 views right shoulder. FINDINGS: RIGHT SHOULDER: The glenohumeral and AC joint space is maintained normal. There is no fracture, dislocation or subluxation seen. RIGHT WRIST: There is no visible acute fracture, dislocation or subluxation. The soft tissues are normal. RIGHT ELBOW: There is no visible acute fracture, dislocation or subluxation seen. No abnormal joint effusion. The soft tissues are normal. XR/XR wrist RT min 3V IMPRESSION: Unremarkable right elbow exam. Unremarkable right shoulder exam. Unremarkable right wrist exam.
--- NOTE | ~2021-11-21 | XR_ITS ---
EXAMINATION: RIGHT SHOULDER, RIGHT ELBOW AND RIGHT WRIST. CLINICAL INFORMATION: Skateboard accident. COMPARISON: None TECHNIQUE: 4 views right elbow. 4 views right wrist and 4 views right shoulder. FINDINGS: RIGHT SHOULDER: The glenohumeral and AC joint space is maintained normal. There is no fracture, dislocation or subluxation seen. RIGHT WRIST: There is no visible acute fracture, dislocation or subluxation. The soft tissues are normal. RIGHT ELBOW: There is no visible acute fracture, dislocation or subluxation seen. No abnormal joint effusion. The soft tissues are normal. XR/XR elbow RT min 3V IMPRESSION: Unremarkable right elbow exam. Unremarkable right shoulder exam. Unremarkable right wrist exam.
[2021-11-21 14:39] VITALS: BP 121/64; PULSE 98; RESP 16; TEMP 36.2; O2SAT 99; BMI 51.5
[2021-11-21] MEDS: Ibuprofen 600 MG TABLET PO (14:44)
--- NOTE | 2021-11-21 14:49 | ED.EXTPRO ---
HPI - Extremity Problem General Chief complaint: Extremity Injury, Upper Stated complaint: MULTI INJURY/PAIN S/P FALL OFF SKATE BOARD Time Seen by Provider: 11/21/21 14:37 Source: patient and EMS Mode of arrival: EMS Limitations: no limitations History of Present Illness HPI Narrative: 21 y/o male with history of schizoaffective disorder, borderline personality disorder, asthma, DM2 who presents to the ER via EMS for evaluation of right upper extremity pain after he got into a skateboarding accident his afternoon. He reports riding his skateboard on the street when he hit a bump and fell off the skateboard onto his right side. He fell onto his right shoulder and rolled. He reports pain in the right shoulder, right elbow and right lower arm. He denies any numbness or tingling. He said pain is worse when he tries to lift his arm. He is right-hand dominant. He did not his head or lose consciousness. He denies any abdominal pain or chest pain. MD Complaint: extremity pain and joint pain Onset (ago): minute(s) Pain Consistency: constant Location: right and upper extremity Severity scale (1-10): 6 Quality: aching Radiation: none Relieving factors: immobilization and rest Exacerbating factors: range of motion and palpation Associated symptoms: denies other symptoms Related Data Home Medications Medication Instructions Recorded Confirmed insulin degludec 200 unit/mL (3 160 unit SUBCUT DAILY 07/29/21 11/04/21 mL) subcutaneous pen (Tresiba FlexTouch U-200 insulin) lorazepam 1 mg tablet 1 tab PO BID PRN 07/29/21 11/04/21 bupropion HCl 150 mg 24 hr tablet, 1 tab PO DAILY 10/02/21 11/04/21 extended release divalproex 500 mg tablet,delayed 1,000 mg PO BEDTIME 10/02/21 11/04/21 release divalproex 500 mg tablet,delayed 500 mg PO QAM 10/02/21 11/04/21 release insulin lispro 100 unit/mL See Protocol SUBCUT TIDAC 11/05/21 11/05/21 subcutaneous pen (Humalog KwikPen (U-100) Insulin) paliperidone palmitate 234 mg/1.5 234 mg IM Q28D 11/05/21 11/05/21 mL intramuscular syringe (Invega Sustenna) Previous Rx's Medication Instructions Recorded haloperidol 5 mg tablet 5 mg PO DAILY #30 tab 08/04/21 haloperidol 5 mg tablet 10 mg PO BEDTIME #60 tab 08/04/21 lamotrigine 25 mg tablet 50 mg PO DAILY 30 Days #60 tab 11/09/21 metformin 500 mg tablet,extended 1,000 mg PO BID 30 Days #120 tab 11/09/21 release 24 hr ibuprofen 600 mg tablet 600 mg PO Q8H PRN #20 tab 11/21/21 Allergies Allergy/AdvReac Type Severity Reaction Status Date / Time No Known Allergies Allergy Verified 07/07/21 13:26 [No Known Allergies*] Review of Systems Review of Systems: Constitutional: No Fever, No Chills Cardiovascular: No Chest Pain, No SOB Respiratory: No Cough, No Sputum Gastrointestinal: No Nausea, No Vomiting, No abdominal Pain Musculoskeletal: + joint pain,+ Myalgias Skin: + Skin Lesions, No rash Neuro: No Weakness, No Dizziness, No Headache Heme/Lymph: No Bruising, No Lymphadenopathy PMFSH Past Medical History Medical History Anxiety Asthma Bipolar disorder Bipolar disorder with psychotic features Concussion Depression Depression Diabetes mellitus, type 2 Diabetes type 2, uncontrolled PTSD (post-traumatic stress disorder) Social History Social History Household Members: Family Household Members Other:: Mother, younger sister. Housing: Apartment Do you presently have visiting nurse or other home services: No Alcohol intake: never Patient Tobacco Use Status: Current everyday Tobacco user Tobacco use type: Cigarette Cigarette Packs Per Day: 1 Cigarettes Per Day: 4 Years Smoked: 4 years e-Cigarette/Vaping Use: Currently Using Second Hand Smoke Exposure: Yes Substance Use Type: Marijuana Advance Directives: No Advance Directives Information Provided: No service: No Sexual orientation: Did not discuss. Physical Exam Vital Signs: Vital Signs: Last Vital Signs Temp 97.2 F 11/21/21 14:39 Pulse 98 11/21/21 14:39 Resp 16 11/21/21 14:39 BP 121/64 11/21/21 14:39 Pulse Ox 99 11/21/21 14:39 BMI result Body Mass Index 51.5 Appearance: Alert. Oriented X3. No acute distress. HEENT: normal inspection CVS: Normal heart rate and rhythm. Pulses normal. Respiratory: No respiratory distress. Skin: Skin warm and dry. Normal skin color. Normal skin turgor. No rashes. Extremities: right forearm with mild superficial abrasions along the dorsal side of the forearm, no active bleeding, no imbedded gravel. Tenderness of the anterior shoulder and proximal humerus with limited range of motion of the right shoulder on abduction nothing past 90 degrees without pain. He has some tenderness of the elbow joint but there is no appreciated swelling, he has normal range of motion of the right elbow. Forearm compartments are soft and compressible with no point tenderness of the forearm. Wrist is normal range of motion with mild tenderness throughout, equal fitness consultant strength throughout. Neurovascularly intact distally. Neuro: Oriented X 3. No motor deficit. No sensory deficit. Course Course Course Narrative: 21-year-old male presents to the ER via EMS with right arm pain after he fell off of a skateboard falling onto the right shoulder. He has limited shoulder abduction due to pain. No clavicular pain. No scapular pain. He has normal range of motion of the elbow and no for point tenderness of the forearm. He is neurovascularly intact distally. Will obtain x-rays to assess for possible traumatic injury. Motrin ordered. Reevaluation(s) Reevaluation #1: Patient sleeping comfortably. When awoken we discussed the results of his x-rays, no traumatic injuries or fractures. Will treat for contusion and possible sprain of the shoulder. No AC joint separation on x-ray and he is declining need for sling. He will be prescribed NSAID for pain. Stable for DC home with supportive care. Discharge Plan Discharge Clinical Impression: Contusion of forearm, right, Abrasion forearm, Shoulder sprain Patient Disposition: Home, Self-Care Instructions: Contusion in Adults (ED), Shoulder Sprain (ED) Additional Instructions: X-rays today did not show any broken bones, they were normal. You may have a sprain shoulder. Recommend rest, apply ice several times per day and take the prescribed ibuprofen every 8 hours as needed for pain. Also recommend taking Tylenol 1000 mg every 6 hours for pain. If you develop new or worsening symptoms call 911 or come back to the ER for further evaluation. Prescriptions: New ibuprofen 600 mg tablet 600 mg PO Q8H PRN (Reason: pain) Qty: 20 0RF No Action lorazepam 1 mg tablet 1 tab PO BID PRN (Reason: anxiety) 0RF Tresiba FlexTouch U-200 200 unit/mL (3 mL) insulin pen 160 unit subcut DAILY 0RF haloperidol 5 mg Tablet 5 mg PO DAILY Qty: 30 0RF haloperidol 5 mg Tablet 10 mg PO BEDTIME Qty: 60 0RF bupropion HCl 150 mg tablet extended release 24 hr 1 tab PO DAILY 0RF divalproex 500 mg tablet,delayed release (DR/EC) 500 mg PO QAM 0RF divalproex 500 mg tablet,delayed release (DR/EC) 1,000 mg PO BEDTIME 0RF Invega Sustenna 234 mg/1.5 mL Syringe 234 mg IM Q28D 0RF insulin lispro [Humalog KwikPen Insulin] 100 unit/mL insulin pen See Protocol unit subcut TIDAC 0RF Protocol: Insulin Correction Scale Less than or equal to 110 ---- Give (units): 0 111 to 150 Give (units): 0 151 to 200 Give (units): 2 201 to 250 Give (units): 4 251 to 300 Give (units): 6 301 to 350 Give (units): 8 Greater than 350 Give (units): 10 Call MD if Blood Glucose > : 350 lamotrigine 25 mg Tablet 50 mg PO DAILY 30 Days Qty: 60 2RF metformin 500 mg Tablet Extended Release 24 Hr 1,000 mg PO BID 30 Days Qty: 120 2RF
== END 2021-11-21 16:02 | disposition home or self-care (01) ==
PROVIDERS: Emergency Provider Emergency Medicine Emergency Medical Services; PCP General Practice
DX: S50.11XA Contusion of right forearm, initial encounter (principal); S50.811A Abrasion of right forearm, initial encounter; S43.401A Unspecified sprain of right shoulder joint, initial encounter; V00.131A Fall from skateboard, initial encounter; E11.9 Type 2 diabetes mellitus without complications; F17.200 Nicotine dependence, unspecified, uncomplicated; F12.90 Cannabis use, unspecified, uncomplicated; Z79.4 Long term (current) use of insulin; Y93.51 Activity, roller skating (inline) and skateboarding; Y92.414 Local residential or business street as the place of occurrence of the external cause; Y99.8 Other external cause status
CPT/HCPCS: 73030; 73080; 73110; 99282; 99283

== ENCOUNTER 2022-02-24 18:30 | Inpatient (IN) | payer OTHER, MEDICAID, SELFPAY ==
--- NOTE | ~2022-02-24 | XR_ITS ---
EXAMINATION: XR HAND, RIGHT CLINICAL INFORMATION: Hand pain status post punching wall. COMPARISON: Right hand radiographs dated 01/26/2022. TECHNIQUE: PA, lateral, and oblique views of the right hand. FINDINGS: Mild to moderate soft tissue swelling is seen. There is no acute fracture or dislocation. The carpal bones are normally aligned. The distal radius and ulna are intact. XR/XR hand RT min 3V IMPRESSION: Mild to moderate soft tissue swelling without acute underlying osseous abnormality.
--- NOTE | 2022-02-24 18:40 | MHC.CARE ---
Pt was evaluated in the community by Samantha and dispo is an voluntary bedsearch at this time.
[2022-02-24 18:43] VITALS: BP 149/95; BP 162/92; PULSE 105; PULSE 111; RESP 18; TEMP 36.3; O2SAT 96; O2SAT 97; BMI 50.6
[2022-02-24 19:13] LABS: Appearance Urine Clear; Color Urine Yellow; Glucose Urine UA >=1000 mg/dL (Negative); Leukocyte Esterase Urine Negative (Negative); Nitrite Urine Negative (Negative); PH 6.5 (5.0-8.0); Specific Gravity - Urine <= 1.005 (1.005-1.025); Urine Blood Trace (Negative); Urine Ketones 15 mg/dL (Negative); Urine Protein Negative (Neg-Trace)
[2022-02-24 19:15] LABS: Glucose, Whole Blood > 600 mg/dL (60-115)
[2022-02-24 19:21] LABS: Hyaline Casts Urine 0-2 /LPF (0-2)
[2022-02-24 19:22] LABS: Bacteria Urine None Seen (None Seen)
[2022-02-24 19:24] LABS: COVID-19 Test Negative (Negative); IDNOW Serial# 55D5AD1C
[2022-02-24 19:24] LABS: UACC Culture Trigger YES
[2022-02-24 19:28] LABS: Amphetamine Screen Urine Not Detected (Not Detect); Barbiturates, Urine Not Detected (Not Detect); Benzodiazepines Screen Urine Not Detected (Not Detect); Cannabinoid Screen Urine Not Detected (Not Detect); Cocaine Screen Urine Not Detected (Not Detect); Fentanyl, urine Not Detected (Not Detect); Opiate Screen Urine Not Detected (Not Detect); Phencyclidine Screen Urine Not Detected (Not Detect)
[2022-02-24 19:32] LABS: Glucose, Whole Blood 579 mg/dL (60-115)
--- NOTE | 2022-02-24 19:58 | PC.NURSE ---
Patient's POC was 579 @ 1918, provider notified/awaiting order from provider at this time. Med rec completed/pending provider's approval, patient was assessed by [facility] at home, disposition voluntary inpatient bed search, will continue to monitor.
[2022-02-24 19:59] LABS: MANUAL DIFF FLAG NO
[2022-02-24 20:01] LABS: Basophils Percent Auto 0.4 % (0-2); Eosinophils Absolute Auto 0.1 X10*3/uL (0.0-0.4); Hematocrit 47.9 % (42.0-52.0); Hemoglobin 16.3 g/dl (14.0-18.0); Imm Gran Abs Auto 0.04 X10*3/uL (0.00-0.03); Imm Gran Pct Auto 0.4 % (0.0-0.4); Lymphocytes Absolute Auto 2.6 X10*3/uL (1.2-4.9); Lymphocytes Percent Auto 25.3 % (20-40); Mean Corpuscular Hemoglobin 28.9 pg (27.0-33.0); Mean Corpuscular Volume 84.9 fL (80.0-98.0); Mean Platelet Volume 10.7 fL (9.4-12.4); Monocytes Absolute Auto 1.1 X10*3/uL (0.1-1.2); Monocytes Percent Auto 10.1 % (2-11); Neutrophils Absolute Auto 6.5 x10*3/uL (2.0-8.3); Neutrophils Percent Auto 62.8 % (45-73); Platelet Count 182 X10*3/uL (160-400); Red Blood Count 5.64 X10*6/uL (4.60-5.80); Red Cell Distribution Width 11.8 % (11.0-16.0); White Blood Count 10.4 X10*3/uL (4.8-10.8)
[2022-02-24 20:16] LABS: Ethanol < 10 mg/dL
--- NOTE | 2022-02-24 20:20 | PHA.MEDREC ---
Pharmacy Consult ? Medication Reconciliation Pharmacy has reviewed the medication reconciliation done by Ulises.
[2022-02-24 20:23] LABS: Acetone, serum QL Negative (Negative)
[2022-02-24 20:25] LABS: Valproate 45.9 mcg/mL (50.0-100.0)
[2022-02-24 20:33] LABS: Alanine Aminotransferase 16 U/L (0-40); Albumin Level 3.8 g/dL (3.5-5.0); Alkaline Phosphatase 100 U/L (39-117); Anion Gap 16 (12-20); Aspartate Amino Transferase 13 U/L (5-37); Bilirubin Total 0.5 mg/dL (0.0-1.0); Blood Urea Nitrogen 6 mg/dL (9-16); Calcium 8.9 mg/dL (8.4-10.2); Carbon Dioxide 21 mmol/L (22-29); Chloride 99 mmol/L (96-108); Creatinine Clr Calc Pharmacy 169.5; Estimated Glomerular Filt Rate > 60; Glucose Random 637 mg/dL (60-115); Magnesium 1.7 mg/dL (1.6-2.6); Potassium 4.2 mmol/L (3.3-5.1); Sodium 132 mmol/L (135-145); Total Protein 6.7 g/dL (6.5-8.0)
[2022-02-24] MEDS: Insulin Lispro 100 UNIT/ML 3 ML VIAL 10 UNIT SUBCUT (20:37)
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
[2022-02-24 21:31] LABS: Glucose, Whole Blood 506 mg/dL (60-115)
--- NOTE | 2022-02-24 21:31 | PC.NURSE ---
PATIENT REFUSED SECONd SET OF LABS.
--- NOTE | 2022-02-24 21:51 | PC.NURSE ---
Addendum entered by CHAIM Cruz 02/24/22 21:58: . RN aware Original Note: POC wrongly documented under my name
[2022-02-24] MEDS: Insulin Glargine,Hum.rec.anlog 100 UNIT/ML 10 ML VIAL SUBCUT (22:10)
[2022-02-24] MEDS: HaloperidoL 5 MG TABLET 10 MG PO (22:39)
[2022-02-24] MEDS: Gabapentin 300 MG CAPSULE PO (22:39)
[2022-02-24] MEDS: Divalproex Sodium 500 MG TABLET.DR 1000 MG PO (22:40)
[2022-02-24] MEDS: LORazepam 1 MG TABLET PO (22:40)
[2022-02-24] MEDS: metFORMIN HCl ER 500 MG TAB.ER.24H 1000 MG PO (22:42)
[2022-02-24 23:09] LABS: Glucose, Whole Blood 431 mg/dL (60-115)
[2022-02-24 23:30] VITALS: BP 135/75; PULSE 97; RESP 18; TEMP 36.8; O2SAT 97
[2022-02-25 00:10] LABS: Glucose, Whole Blood 372 mg/dL (60-115)
[2022-02-25] MEDS: Insulin Lispro 100 UNIT/ML 3 ML VIAL SUBCUT ×5 (00:35→21:28)
[2022-02-25 00:55] VITALS: BP 112/56; PULSE 88; RESP 19; TEMP 36.1; O2SAT 96
[2022-02-25 04:41] VITALS: BMI 46.3
[2022-02-25 04:44] LABS: Glucose, Whole Blood 373 mg/dL (60-115)
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
--- NOTE | 2022-02-25 06:48 | PC.NURSE ---
BS upon admission 373. Pt. agitated and angry because he reports he wasn't given a dinner tray. Pt. eating betty crackers and pudding. Provider notified. 5U subcutaneous humalog x1 ordered by Alayna Walter NP at 0110. Pt. received the dose and requested not to be woken up to recheck BS or VS. Provider notified. Pt. allowed to sleep.
[2022-02-25 08:06] LABS: Glucose, Whole Blood 422 mg/dL (60-115)
[2022-02-25] MEDS: buPROPion HCl XL 150 MG TAB.ER.24H PO (09:07)
[2022-02-25] MEDS: Omeprazole 20 MG CAPSULE.DR PO (09:07)
[2022-02-25] MEDS: Gabapentin 300 MG CAPSULE PO ×2 (09:07→19:57)
[2022-02-25] MEDS: HaloperidoL 5 MG TABLET PO (09:07)
[2022-02-25] MEDS: Atorvastatin Calcium 80 MG TABLET PO (09:07)
[2022-02-25] MEDS: metFORMIN HCl ER 500 MG TAB.ER.24H 1000 MG PO ×2 (09:07→19:56)
[2022-02-25] MEDS: Divalproex Sodium 500 MG TABLET.DR PO (09:07)
[2022-02-25] MEDS: lamoTRIgine 25 MG TABLET 50 MG PO (09:07)
[2022-02-25] MEDS: Fluticasone/Vilanterol 100/25 BLST.W.DEV 1 PUFF INHALE (09:21)
--- NOTE | 2022-02-25 09:50 | PC.NURSE ---
Pts 0730 POC was 422. Pt to receive 10 units humalog per sliding scale protocol. Hospitalist Lalito contacted. Lalito changed sliding scale protocol. Pt will instead receive 24 units humalog.
[2022-02-25 10:10] VITALS: BP 104/54; PULSE 75; RESP 16; TEMP 36.9; O2SAT 94
[2022-02-25 12:04] LABS: Glucose, Whole Blood 434 mg/dL (60-115)
--- NOTE | 2022-02-25 12:13 | PC.NURSE ---
pt POC was 434, contacted hospitalist Lalito contacted, will adjust sliding scale
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
--- NOTE | 2022-02-25 17:59 | PC.NURSE ---
pt. signed 3 02/25 up on 03/02
[2022-02-25 18:00] VITALS: BP 125/67; PULSE 98; RESP 18; TEMP 36.7; O2SAT 95
[2022-02-25] MEDS: Divalproex Sodium 500 MG TABLET.DR 1000 MG PO (19:56)
[2022-02-25] MEDS: HaloperidoL 5 MG TABLET 10 MG PO (19:57)
[2022-02-25] MEDS: Insulin Glargine,Hum.rec.anlog 100 UNIT/ML 10 ML VIAL SUBCUT (19:58)
[2022-02-25 20:44] LABS: Glucose, Whole Blood 418 mg/dL (60-115)
[2022-02-25 20:44] LABS: Glucose, Whole Blood 333 mg/dL (60-115)
[2022-02-25] MEDS: Nicotine Polacrilex 2 MG GUM BUCCAL (21:41)
[2022-02-26 08:15] LABS: Glucose, Whole Blood 298 mg/dL (60-115)
[2022-02-26 08:16] LABS: Estimated Average Glucose 344 mg/dL; Hemoglobin A1c % 13.6 %
[2022-02-26 08:18] LABS: Cholesterol 127 mg/dL; HDL Cholesterol 27 mg/dL; LDL Cholesterol Calculated 22 mg/dl; Magnesium 1.5 mg/dL (1.6-2.6); Triglycerides 390 mg/dL
[2022-02-26 08:40] LABS: Free T4 (Free Thyroxine) 1.32 ng/dL (0.71-1.85); Thyroid Stimulating Hormone 2.94 uIU/mL (0.32-4.0)
[2022-02-26] MEDS: Insulin Lispro 100 UNIT/ML 3 ML VIAL SUBCUT ×5 (08:53→22:57)
[2022-02-26] MEDS: buPROPion HCl XL 150 MG TAB.ER.24H PO (08:54)
[2022-02-26] MEDS: Gabapentin 300 MG CAPSULE PO ×2 (08:54→19:29)
[2022-02-26] MEDS: lamoTRIgine 25 MG TABLET 50 MG PO (08:55)
[2022-02-26] MEDS: Atorvastatin Calcium 80 MG TABLET PO (08:55)
[2022-02-26] MEDS: Divalproex Sodium 500 MG TABLET.DR PO (08:55)
[2022-02-26] MEDS: metFORMIN HCl ER 500 MG TAB.ER.24H 1000 MG PO ×2 (08:55→19:29)
[2022-02-26 08:59] VITALS: BP 133/71; PULSE 86; RESP 16; TEMP 36.2; O2SAT 97
[2022-02-26 09:03] LABS: Vitamin B12 797 pg/mL (200-900)
[2022-02-26] MEDS: HaloperidoL 5 MG TABLET PO (09:09)
[2022-02-26 12:15] LABS: Glucose, Whole Blood 380 mg/dL (60-115)
--- NOTE | 2022-02-26 12:43 | PC.NURSE ---
Pt POC was 380. informed hospitalist Saba. patient recieved 30 units per sliding scale, no additional orders.
[2022-02-26 16:11] LABS: Glucose, Whole Blood 351 mg/dL (60-115)
[2022-02-26] MEDS: Nicotine Polacrilex 2 MG GUM BUCCAL (16:27)
[2022-02-26] MEDS: Simethicone 80 MG TAB.CHEW PO ×2 (16:28→19:28)
--- NOTE | 2022-02-26 17:41 | P.PNPSI_ITS ---
Subjective Subjective Date of Service: 02/26/22 Reason For Visit: SI, Psychosis Subjective Notes: Conditional Voluntary and 3 Day Healthcare Proxy: No Guardianship: Yes Medical Problems Affecting Mental Status: No Interim History: Three day notice effective until 03/02/22. Mother in process of full guardianship with [facility]. Pt continues to not be invested in participating in treatment.Up a few times to the phone, verbally caustic. Discussed with pt's mom(guardian) who reports pt is agressive-focus is on mom and sister, they fear for their safety. Pt has intermittent medication complianc e. Mom reports that for 2 weeks he has been taking his meds and she finds he has had more outbursts and has been more aggressive. Informed mom we have calls out to his out pt team. Mom asks that we tell him that he cannot return to the home until he is in appropriate behavioral control. Mom reports pt is very angry- threatens to murder sister, calls mother a whore and is consistently threatening. Met with pt, review of discussion with mother and treatment plan that we will work with him on medicines and behaviors and that he would not be accepted by family until symptoms were in improved control. He responded to this by calling mom to make more threats, I will go to a program then . Call to mom at the end of the day to review pt's call-she declines family mtg at this time and asks that we attempt to help him and she will come in when we think he is prepared to leave to make an assessement. Medication Compliance: Yes Side effects from medications: No Attending Groups: No Review of Systems Acute medical concerns: Yes IDDM Medical Review of Systems: unchanged Review of Systems Review of Systems Yes Unobtainable due to mental status Reports behavioral changes Psychiatric: Reports abnormal sleep pattern, Reports behavioral changes, Reports change in appetite, Reports irritability, Reports anhedonia, Reports mood swings, Reports homicidal ideation and Reports suicidal ideation Mental Status Exam Mental Status Exam Patient Appearance: Fatigued and Disheveled Patient Orientation: Person, Place, Time and Situation Level of Consciousness: Alert Patient Behavior: Guarded, Suspicious, Belligerent, Verbal Threats, Anxious, Fearful, Resistive to Care, Avoidant, Fatigued, Distractible, Isolative, Uncooperative and Poor Eye Contact Mood Description: Hostile Affect Description: Constricted Patient Cognition Impaired: No Ability to Follow Directions: Fair Speech Pattern: Spontaneous Speech Memory Description: Episodic Impaired Hallucinations: None Delusions: Not Present Perceptual Disturbances: Derealization Thought Process: Distracted Thought Content: positive for Mingo, positive for Evasive, positive for Ramos icidal Ideation and positive for Homicidal Ideation Depressive Symptoms: Increased Irritability, Changes in Appetite, Sleeping More Than Usual, Loss of Int. in Activity, Significant Weight Gain, Hopelessness, Increased Fatigue, Thoughts of /Suicide and Loss of Energy Abnormal Motor Activity Signs and Symptoms: Agitation Judgement: Poor Diagnostics Vital Signs (24Hr): Vital Signs - 24 hr 02/25/22 18:00 02/26/22 08:59 Temperature 98.1 F 97.1 F Pulse Rate 98 86 Respiratory Rate 18 16 Blood Pressure 125/67 133/71 Pulse Oximetry 95 97 Oxygen Delivery Method Room Air Room Air BMI result Body Mass Index 46.3 Labs Results: 02/24/22 19:50 02/24/22 19:50 Labs: Laboratory Results - last 48 hr 02/24/22 02/24/22 02/24/22 19:01 19:01 19:02 WBC RBC Hgb Hct MCV MCH MCHC RDW Plt Count MPV Immature Gran % (Auto) Neut % (Auto) Lymph % (Auto) Starr % (Auto) Eos % (Auto) Baso % (Auto) Lymph # (Auto) Starr # (Auto) Eos # (Auto) Baso # (Auto) Abs Immat Gran (auto) Absolute Neuts (auto) Absolute Nucleated RBC Nucleated RBC % (auto) Sodium Potassium Chloride Carbon Dioxide Anion Gap BUN Creatinine Estim Creat Clear Calc Estimated GFR POC Glucose Random Glucose Estimat Average Glucose Hemoglobin A1c % Calcium Magnesium Total Bilirubin AST ALT Alkaline Phosphatase Total Protein Albumin Triglycerides Cholesterol LDL Cholesterol, Calc HDL Cholesterol Vitamin B12 Folate TSH Free T4 Urine Color Yellow Urine Appearance Clear Urine pH 6.5 Ur Specific [place] <= 1.005 Urine Protein Negative Urine Glucose (UA) >=1000 H Urine Ketones 15 Urine Blood Trace Urine Nitrite Negative Ur Leukocyte Esterase Negative Urine RBC 3-5 H Urine WBC 6-10 H Ur Squamous Epith Cells 3-5 Urine Bacteria None Seen Hyaline Casts 0-2 Urine Yeast Present Urine Opiates Screen Not Detected Urine Fentanyl Screen Not Detected Ur Barbiturates Screen Not Detected Valproic Acid Ur Phencyclidine Scrn Not Detected Ur Amphetamines Screen Not Detected U Benzodiazepines Scrn Not Detected Urine Cocaine Screen Not Detected U Marijuana (THC) Screen Not Detected Ethyl Alcohol Acetone, Qual COVID-19 ([facility]) Negative COVID-19 Clin Com See Note 02/24/22 02/24/22 02/24/22 19:10 19:18 19:50 WBC 10.4 RBC 5.64 Hgb 16.3 Hct 47.9 MCV 84.9 MCH 28.9 MCHC 34.0 RDW 11.8 Plt Count 182 D MPV 10.7 Immature Gran % (Auto) 0.4 Neut % (Auto) 62.8 Lymph % (Auto) 25.3 Starr % (Auto) 10.1 Eos % (Auto) 1.0 Baso % (Auto) 0.4 Lymph # (Auto) 2.6 Starr # (Auto) 1.1 Eos # (Auto) 0.1 Baso # (Auto) 0.0 Abs Immat Gran (auto) 0.04 H Absolute Neuts (auto) 6.5 Absolute Nucleated RBC 0.000 Nucleated RBC % (auto) 0.0 Sodium Potassium Chloride Carbon Dioxide Anion Gap BUN Creatinine Estim Creat Clear Calc Estimated GFR POC Glucose > 600 H* 579 H* Random Glucose Estimat Average Glucose Hemoglobin A1c % Calcium Magnesium Total Bilirubin AST ALT Alkaline Phosphatase Total Protein Albumin Triglycerides Cholesterol LDL Cholesterol, Calc HDL Cholesterol Vitamin B12 Folate TSH Free T4 Urine Color Urine Appearance Urine pH Ur Specific [place] Urine Protein Urine Glucose (UA) Urine Ketones Urine Blood Urine Nitrite Ur Leukocyte Esterase Urine RBC Urine WBC Ur Squamous Epith Cells Urine Bacteria Hyaline Casts Urine Yeast Urine Opiates Screen Urine Fentanyl Screen Ur Barbiturates Screen Valproic Acid Ur Phencyclidine Scrn Ur Amphetamines Screen U Benzodiazepines Scrn Urine Cocaine Screen U Marijuana (THC) Screen Ethyl Alcohol Acetone, Qual COVID-19 ([facility]) COVID-19 [email or web address] 02/24/22 02/24/22 02/24/22 19:50 19:50 19:50 WBC RBC Hgb Hct MCV MCH MCHC RDW Plt Count MPV Immature Gran % (Auto) Neut % (Auto) Lymph % (Auto) Starr % (Auto) Eos % (Auto) Baso % (Auto) Lymph # (Auto) Starr # (Auto) Eos # (Auto) Baso # (Auto) Abs Immat Gran (auto) Absolute Neuts (auto) Absolute Nucleated RBC Nucleated RBC % (auto) Sodium 132 L Potassium 4.2 Chloride 99 Carbon Dioxide 21 L Anion Gap 16 BUN 6 L Creatinine 1.06 Estim Creat Clear Calc 169.5 Estimated GFR > 60 POC Glucose Random Glucose 637 H* Estimat Average Glucose Hemoglobin A1c % Calcium 8.9 D Magnesium 1.7 Total Bilirubin 0.5 AST 13 ALT 16 Alkaline Phosphatase 100 Total Protein 6.7 Albumin 3.8 Triglycerides Cholesterol LDL Cholesterol, Calc HDL Cholesterol Vitamin B12 Folate TSH Free T4 Urine Color Urine Appearance Urine pH Ur Specific [place] Urine Protein Urine Glucose (UA) Urine Ketones Urine Blood Urine Nitrite Ur Leukocyte Esterase Urine RBC Urine WBC Ur Squamous Epith Cells Urine Bacteria Hyaline Casts Urine Yeast Urine Opiates Screen Urine Fentanyl Screen Ur Barbiturates Screen Valproic Acid 45.9 L Ur Phencyclidine Scrn Ur Amphetamines Screen U Benzodiazepines Scrn Urine Cocaine Screen U Marijuana (THC) Screen Ethyl Alcohol < 10 Acetone, Qual COVID-19 ([facility]) COVID-19 [email or web address] 02/24/22 02/24/22 02/24/22 19:50 21:27 23:04 WBC RBC Hgb Hct MCV MCH MCHC RDW Plt Count MPV Immature Gran % (Auto) Neut % (Auto) Lymph % (Auto) Starr % (Auto) Eos % (Auto) Baso % (Auto) Lymph # (Auto) Starr # (Auto) Eos # (Auto) Baso # (Auto) Abs Immat Gran (auto) Absolute Neuts (auto) Absolute Nucleated RBC Nucleated RBC % (auto) Sodium Potassium Chloride Carbon Dioxide Anion Gap BUN Creatinine Estim Creat Clear Calc Estimated GFR POC Glucose 506 H* 431 H* Random Glucose Estimat Average Glucose Hemoglobin A1c % Calcium Magnesium Total Bilirubin AST ALT Alkaline Phosphatase Total Protein Albumin Triglycerides Cholesterol LDL Cholesterol, Calc HDL Cholesterol Vitamin B12 Folate TSH Free T4 Urine Color Urine Appearance Urine pH Ur Specific [place] Urine Protein Urine Glucose (UA) Urine Ketones Urine Blood Urine Nitrite Ur Leukocyte Esterase Urine RBC Urine WBC Ur Squamous Epith Cells Urine Bacteria Hyaline Casts Urine Yeast Urine Opiates Screen Urine Fentanyl Screen Ur Barbiturates Screen Valproic Acid Ur Phencyclidine Scrn Ur Amphetamines Screen U Benzodiazepines Scrn Urine Cocaine Screen U Marijuana (THC) Screen Ethyl Alcohol Acetone, Qual Negative COVID-19 ([facility]) COVID-19 [email or web address] 02/25/22 02/25/22 02/25/22 00:06 01:01 08:02 WBC RBC Hgb Hct MCV MCH MCHC RDW Plt Count MPV Immature Gran % (Auto) Neut % (Auto) Lymph % (Auto) Starr % (Auto) Eos % (Auto) Baso % (Auto) Lymph # (Auto) Starr # (Auto) Eos # (Auto) Baso # (Auto) Abs Immat Gran (auto) Absolute Neuts (auto) Absolute Nucleated RBC Nucleated RBC % (auto) Sodium Potassium Chloride Carbon Dioxide Anion Gap BUN Creatinine Estim Creat Clear Calc Estimated GFR POC Glucose 372 H* 373 H* 422 H* Random Glucose Estimat Average Glucose Hemoglobin A1c % Calcium Magnesium Total Bilirubin AST ALT Alkaline Phosphatase Total Protein Albumin Triglycerides Cholesterol LDL Cholesterol, Calc HDL Cholesterol Vitamin B12 Folate TSH Free T4 Urine Color Urine Appearance Urine pH Ur Specific [place] Urine Protein Urine Glucose (UA) Urine Ketones Urine Blood Urine Nitrite Ur Leukocyte Esterase Urine RBC Urine WBC Ur Squamous Epith Cells Urine Bacteria Hyaline Casts Urine Yeast Urine Opiates Screen Urine Fentanyl Screen Ur Barbiturates Screen Valproic Acid Ur Phencyclidine Scrn Ur Amphetamines Screen U Benzodiazepines Scrn Urine Cocaine Screen U Marijuana (THC) Screen Ethyl Alcohol Acetone, Qual COVID-19 ([facility]) COVID-19 [email or web address] 02/25/22 02/25/22 02/25/22 12:00 16:36 20:40 WBC RBC Hgb Hct MCV MCH MCHC RDW Plt Count MPV Immature Gran % (Auto) Neut % (Auto) Lymph % (Auto) Starr % (Auto) Eos % (Auto) Baso % (Auto) Lymph # (Auto) Starr # (Auto) Eos # (Auto) Baso # (Auto) Abs Immat Gran (auto) Absolute Neuts (auto) Absolute Nucleated RBC Nucleated RBC % (auto) Sodium Potassium Chloride Carbon Dioxide Anion Gap BUN Creatinine Estim Creat Clear Calc Estimated GFR POC Glucose 434 H* 333 H 418 H* Random Glucose Estimat Average Glucose Hemoglobin A1c % Calcium Magnesium Total Bilirubin AST ALT Alkaline Phosphatase Total Protein Albumin Triglycerides Cholesterol LDL Cholesterol, Calc HDL Cholesterol Vitamin B12 Folate TSH Free T4 Urine Color Urine Appearance Urine pH Ur Specific [place] Urine Protein Urine Glucose (UA) Urine Ketones Urine Blood Urine Nitrite Ur Leukocyte Esterase Urine RBC Urine WBC Ur Squamous Epith Cells Urine Bacteria Hyaline Casts Urine Yeast Urine Opiates Screen Urine Fentanyl Screen Ur Barbiturates Screen Valproic Acid Ur Phencyclidine Scrn Ur Amphetamines Screen U Benzodiazepines Scrn Urine Cocaine Screen U Marijuana (THC) Screen Ethyl Alcohol Acetone, Qual COVID-19 ([facility]) COVID-19 [facility] 02/26/22 02/26/22 02/26/22 07:58 07:58 07:58 WBC RBC Hgb Hct MCV MCH MCHC RDW Plt Count MPV Immature Gran % (Auto) Neut % (Auto) Lymph % (Auto) Starr % (Auto) Eos % (Auto) Baso % (Auto) Lymph # (Auto) Starr # (Auto) Eos # (Auto) Baso # (Auto) Abs Immat Gran (auto) Absolute Neuts (auto) Absolute Nucleated RBC Nucleated RBC % (auto) Sodium Potassium Chloride Carbon Dioxide Anion Gap BUN Creatinine Estim Creat Clear Calc Estimated GFR POC Glucose Random Glucose Estimat Average Glucose 344 Hemoglobin A1c % 13.6 Calcium Magnesium 1.5 L Total Bilirubin AST ALT Alkaline Phosphatase Total Protein Albumin Triglycerides 390 Cholesterol 127 D LDL Cholesterol, Calc 22 HDL Cholesterol 27 Vitamin B12 797 Folate 16.0 TSH 2.94 Free T4 1.32 Urine Color Urine Appearance Urine pH Ur Specific [place] Urine Protein Urine Glucose (UA) Urine Ketones Urine Blood Urine Nitrite Ur Leukocyte Esterase Urine RBC Urine WBC Ur Squamous Epith Cells Urine Bacteria Hyaline Casts Urine Yeast Urine Opiates Screen Urine Fentanyl Screen Ur Barbiturates Screen Valproic Acid Ur Phencyclidine Scrn Ur Amphetamines Screen U Benzodiazepines Scrn Urine Cocaine Screen U Marijuana (THC) Screen Ethyl Alcohol Acetone, Qual COVID-19 ([facility]) COVID-19 [email or web address] 02/26/22 02/26/22 02/26/22 08:10 12:12 16:00 WBC RBC Hgb Hct MCV MCH MCHC RDW Plt Count MPV Immature Gran % (Auto) Neut % (Auto) Lymph % (Auto) Starr % (Auto) Eos % (Auto) Baso % (Auto) Lymph # (Auto) Starr # (Auto) Eos # (Auto) Baso # (Auto) Abs Immat Gran (auto) Absolute Neuts (auto) Absolute Nucleated RBC Nucleated RBC % (auto) Sodium Potassium Chloride Carbon Dioxide Anion Gap BUN Creatinine Estim Creat Clear Calc Estimated GFR POC Glucose 298 H 380 H* 351 H* Random Glucose Estimat Average Glucose Hemoglobin A1c % Calcium Magnesium Total Bilirubin AST ALT Alkaline Phosphatase Total Protein Albumin Triglycerides Cholesterol LDL Cholesterol, Calc HDL Cholesterol Vitamin B12 Folate TSH Free T4 Urine Color Urine Appearance Urine pH Ur Specific [place] Urine Protein Urine Glucose (UA) Urine Ketones Urine Blood Urine Nitrite Ur Leukocyte Esterase Urine RBC Urine WBC Ur Squamous Epith Cells Urine Bacteria Hyaline Casts Urine Yeast Urine Opiates Screen Urine Fentanyl Screen Ur Barbiturates Screen Valproic Acid Ur Phencyclidine Scrn Ur Amphetamines Screen U Benzodiazepines Scrn Urine Cocaine Screen U Marijuana (THC) Screen Ethyl Alcohol Acetone, Qual COVID-19 ([facility]) COVID-19 Clin Com Medications Medications Current Medications Acetaminophen (Acetaminophen 325 Mg Tablet) 650 mg PO Q6H PRN PRN Reason: Headache/Pain Mild Scale (1-3) Al Hydroxide/Mg Hydroxide (Magnesium Hydrox/Alum Hydrox 30 Ml Oral.Susp) 30 ml PO Q6H PRN PRN Reason: Heartburn/Nausea Atorvastatin Calcium (Atorvastatin Calcium 80 Mg Tablet) 80 mg PO DAILY [facility] Last Admin: 02/26/22 08:55 Dose: 80 mg Bupropion HCl (Bupropion Hcl Xl 150 Mg Tab.Er.24h) 150 mg PO DAILY [facility] Last Admin: 02/26/22 08:54 Dose: 150 mg Divalproex Sodium (Divalproex Sodium 500 Mg Tablet.) 500 mg PO DAILY [facility] Last Admin: 02/26/22 08:55 Dose: 500 mg Divalproex Sodium (Divalproex Sodium 500 Mg Tablet.) 1,000 mg PO BEDTIME [facility] Last Admin: 02/25/22 19:56 Dose: 1,000 mg Fenofibrate (Fenofibrate 54 Mg Tablet) 54 mg PO DAILY [facility] Fluticasone/Vilanterol (Fluticasone/Vilanterol 100/25 Blst.W.Dev) 1 puff INHALE RDAILY [facility] Last Admin: 02/26/22 09:06 Dose: Not Given Gabapentin (Gabapentin 300 Mg Capsule) 300 mg PO BID [facility] Last Admin: 02/26/22 08:54 Dose: 300 mg Haloperidol (Haloperidol 5 Mg Tablet) 5 mg PO DAILY [facility] Last Admin: 02/26/22 09:09 Dose: 5 mg Haloperidol (Haloperidol 5 Mg Tablet) 10 mg PO BEDTIME [facility] Last Admin: 02/25/22 19:57 Dose: 10 mg Hydroxyzine HCl (Hydroxyzine Hcl 25 Mg Tablet) 25 mg PO Q6H PRN PRN Reason: Anxiety Insulin Glargine (Insulin Glargine,Hum.Rec.Anlog 100 Unit/Ml 10 Ml Vial) 120 unit SUBCUT BEDTIME [facility] Insulin Human Lispro (Insulin Lispro 100 Unit/Ml 3 Ml Vial) 0 unit SUBCUT QIDACHS [facility]; Protocol Last Admin: 02/26/22 16:30 Dose: 25 unit Lamotrigine (Lamotrigine 25 Mg Tablet) 50 mg PO DAILY [facility] Last Admin: 02/26/22 08:55 Dose: 50 mg Lorazepam (Lorazepam 1 Mg Tablet) 1 mg PO BID PRN PRN Reason: anxiety Last Admin: 02/24/22 22:40 Dose: 1 mg Magnesium Hydroxide (Milk Of Magnesia 30 Ml Oral.Susp) 30 ml PO DAILY PRN PRN Reason: Constipation Metformin HCl (Metformin Hcl Er 500 Mg Tab.Er.24h) 1,000 mg PO BID [facility] Last Admin: 02/26/22 08:55 Dose: 1,000 mg Nicotine Polacrilex (Nicotine Polacrilex 2 Mg Gum) 2 mg BUCCAL Q1H PRN PRN Reason: Nicotine Cravings Last Admin: 02/26/22 16:27 Dose: 2 mg Non-Formulary Medication (Dulaglutide [Trulicity]) 0.75 mg SUBCUT Q7D [facility] Omeprazole (Omeprazole 20 Mg Capsule.Dr) 20 mg PO DAILY@0630 [facility] Last Admin: 02/26/22 09:06 Dose: Not Given Simethicone (Simethicone 80 Mg Tab.Chew) 80 mg PO QIDWMHS [facility] Last Admin: 02/26/22 16:28 Dose: 80 mg Trazodone HCl (Trazodone Hcl 50 Mg Tablet) 50 mg PO BEDTIME PRN PRN Reason: Insomnia Allergies Allergies Allergy/AdvReac Type Severity Reaction Status Date / Time No Known Allergies Allergy Verified 07/07/21 13:26 [No Known Allergies*] Assessment & Plan Assessment & Plan (1) Schizoaffective disorder, bipolar type: Status: Acute Code(s): F25.0 - Schizoaffective disorder, bipolar type (2) Borderline personality disorder in adult: Status: Acute Code(s): F60.3 - Borderline personality disorder (3) Diabetes type 2, uncontrolled: Status: Acute Code(s): E11.65 - Type 2 diabetes mellitus with hyperglycemia (4) Asthma: Status: Acute Code(s): J45.909 - Unspecified asthma, uncomplicated Plan 02/26/22- Continue current plan BMP 02/27/22 I spent minutes with the patient and/or on the patient floor today, greater than?50% of which was spent counseling/coordinating care. Patient educated on: therapeutic strategies Informed Consent: understands Reason for contiued inpatient stay Substantial Risk for: harm to self, harm to others, inability to function, rapid decompensation and med/psych decompensation
[2022-02-26 18:00] VITALS: BP 132/78; PULSE 78; RESP 16; TEMP 36.6; O2SAT 99
[2022-02-26] MEDS: HaloperidoL 5 MG TABLET 10 MG PO (19:28)
[2022-02-26] MEDS: Divalproex Sodium 500 MG TABLET.DR 1000 MG PO (19:29)
[2022-02-26] MEDS: Insulin Glargine,Hum.rec.anlog 100 UNIT/ML 10 ML VIAL 120 UNIT SUBCUT (19:30)
[2022-02-26 20:06] LABS: Glucose, Whole Blood 588 mg/dL (60-115)
[2022-02-26 21:17] LABS: Glucose, Whole Blood 519 mg/dL (60-115)
--- NOTE | 2022-02-26 22:15 | PC.NURSE ---
Pt alert and oriented. VSS. POC recorded at 2100 is 588. CLINICAL EDUCATION ACADEMIC COORDINATOR Alayna Walter notified, Order for 10units of humalog given. Later recheck record: [id number]. JERRY Walter notified, new order for another dose of 10units given.
--- NOTE | 2022-02-26 22:53 | PC.NURSE ---
Pt's blood sugar was rechecked in an hour with blood sugar falling to 445. Md is aware and ordered another does of 10units insulin. Insulin given pending recheck.
[2022-02-26 23:03] LABS: Glucose, Whole Blood 445 mg/dL (60-115)
[2022-02-27 07:35] LABS: Glucose, Whole Blood 268 mg/dL (60-115)
[2022-02-27] MEDS: Gabapentin 300 MG CAPSULE PO ×2 (08:00→19:53)
[2022-02-27] MEDS: buPROPion HCl XL 150 MG TAB.ER.24H PO (08:00)
[2022-02-27] MEDS: Insulin Lispro 100 UNIT/ML 3 ML VIAL SUBCUT ×4 (08:00→20:59)
[2022-02-27] MEDS: Omeprazole 20 MG CAPSULE.DR PO (08:00)
[2022-02-27] MEDS: lamoTRIgine 25 MG TABLET 50 MG PO (08:00)
[2022-02-27] MEDS: Divalproex Sodium 500 MG TABLET.DR PO (08:00)
[2022-02-27] MEDS: HaloperidoL 5 MG TABLET PO (08:00)
[2022-02-27] MEDS: Atorvastatin Calcium 80 MG TABLET PO (08:00)
[2022-02-27] MEDS: Simethicone 80 MG TAB.CHEW PO ×4 (08:00→19:54)
[2022-02-27] MEDS: metFORMIN HCl ER 500 MG TAB.ER.24H 1000 MG PO ×2 (08:00→19:53)
[2022-02-27 08:02] VITALS: BP 137/88; PULSE 90; RESP 18; TEMP 36.2; O2SAT 98
[2022-02-27] MEDS: Nicotine Polacrilex 2 MG GUM BUCCAL ×5 (08:06→21:00)
[2022-02-27] MEDS: Fenofibrate 54 MG TABLET PO ×2 (08:08→08:09)
[2022-02-27 08:34] LABS: Anion Gap 19 (12-20); Blood Urea Nitrogen 10 mg/dL (9-16); Calcium 9.4 mg/dL (8.4-10.2); Carbon Dioxide 23 mmol/L (22-29); Chloride 102 mmol/L (96-108); Creatinine Clr Calc Pharmacy 213.3; Estimated Glomerular Filt Rate > 60; Glucose Random 257 mg/dL (60-115); Sodium 140 mmol/L (135-145)
[2022-02-27] MEDS: LORazepam 1 MG TABLET PO (11:00)
[2022-02-27 11:48] LABS: Glucose, Whole Blood 311 mg/dL (60-115)
[2022-02-27] MEDS: Acetaminophen 325 MG TABLET 650 MG PO (12:37)
[2022-02-27 15:47] LABS: Glucose, Whole Blood 396 mg/dL (60-115)
[2022-02-27 18:00] VITALS: BP 109/78; PULSE 89; RESP 16; TEMP 36.5; O2SAT 98
[2022-02-27] MEDS: Insulin Glargine,Hum.rec.anlog 100 UNIT/ML 10 ML VIAL 120 UNIT SUBCUT (19:52)
[2022-02-27] MEDS: HaloperidoL 5 MG TABLET 10 MG PO (19:53)
[2022-02-27] MEDS: Divalproex Sodium 500 MG TABLET.DR 1000 MG PO (19:54)
--- NOTE | 2022-02-27 20:30 | HO.PSYCHPN ---
Subjective Subjective Date of Service: 02/28/22 Reason For Visit: SI, Psychosis Subjective Notes: Conditional Voluntary Healthcare Proxy: No Guardianship: No Medical Problems Affecting Mental Status: No Interim History: Review with Williams his mother's concerns about discharge and what she would like him to do prior to coming home. He is interested in respite and would like to be at home before sister's birthday which is 03[birth year]22[birth year]. Discussed his behavior, threats at home and how this creates fear in his family-- I would never hurt them, I just get mad sometimes . Message left for [facility] Janay Jenkins to discuss medications. Medication Compliance: Yes Side effects from medications: No Attending Groups: Intermittent Review of Systems Acute medical concerns: No Medical Review of Systems: unchanged Mental Status Exam Mental Status Exam Patient Appearance: Appropriate Patient Orientation: Person, Place, Time and Situation Level of Consciousness: Alert Patient Behavior: Anxious, Fearful, Avoidant, Distractible and Isolative Mood Description: Constricted Affect Description: Constricted Patient Cognition Impaired: No Ability to Follow Directions: Fair Speech Pattern: Spontaneous Speech Memory Description: Episodic Impaired Hallucinations: None Delusions: Not Present Perceptual Disturbances: Derealization Thought Process: Distracted Thought Content: positive for [place] and positive for Evasive Depressive Symptoms: Changes in Appetite, Sleeping More Than Usual, Loss of Int. in Activity, Significant Weight Gain, Increased Fatigue and Loss of Energy Abnormal Motor Activity Signs and Symptoms: Agitation Judgement: Poor Diagnostics Vital Signs (24Hr): Vital Signs - 24 hr 02/27/22 08:02 Temperature 97.1 F Pulse Rate 90 Respiratory Rate 18 Blood Pressure 137/88 Pulse Oximetry 98 Oxygen Delivery Method Room Air BMI result Body Mass Index 46.3 Labs Results: 02/24/22 19:50 02/27/22 07:30 Labs: Laboratory Results - last 48 hr 02/25/22 02/25/22 02/26/22 16:36 20:40 07:58 Sodium Potassium Chloride Carbon Dioxide Anion Gap BUN Creatinine Estim Creat Clear Calc Estimated GFR POC Glucose 333 H 418 H* Random Glucose Estimat Average Glucose 344 Hemoglobin A1c % 13.6 Calcium Magnesium Triglycerides Cholesterol LDL Cholesterol, Calc HDL Cholesterol Vitamin B12 Folate TSH Free T4 02/26/22 02/26/22 02/26/22 07:58 07:58 08:10 Sodium Potassium Chloride Carbon Dioxide Anion Gap BUN Creatinine Estim Creat Clear Calc Estimated GFR POC Glucose 298 H Random Glucose Estimat Average Glucose Hemoglobin A1c % Calcium Magnesium 1.5 L Triglycerides 390 Cholesterol 127 D LDL Cholesterol, Calc 22 HDL Cholesterol 27 Vitamin B12 797 Folate 16.0 TSH 2.94 Free T4 1.32 02/26/22 02/26/22 02/26/22 12:12 16:00 20:01 Sodium Potassium Chloride Carbon Dioxide Anion Gap BUN Creatinine Estim Creat Clear Calc Estimated GFR POC Glucose 380 H* 351 H* 588 H* Random Glucose Estimat Average Glucose Hemoglobin A1c % Calcium Magnesium Triglycerides Cholesterol LDL Cholesterol, Calc HDL Cholesterol Vitamin B12 Folate TSH Free T4 02/26/22 02/26/22 02/27/22 21:14 22:42 07:30 Sodium 140 Potassium 4.0 Chloride 102 Carbon Dioxide 23 Anion Gap 19 BUN 10 D Creatinine 0.80 Estim Creat Clear Calc 213.3 Estimated GFR > 60 POC Glucose 519 H* 445 H* Random Glucose 257 H D Estimat Average Glucose Hemoglobin A1c % Calcium 9.4 Magnesium Triglycerides Cholesterol LDL Cholesterol, Calc HDL Cholesterol Vitamin B12 Folate TSH Free T4 02/27/22 02/27/22 02/27/22 07:31 11:44 15:42 Sodium Potassium Chloride Carbon Dioxide Anion Gap BUN Creatinine Estim Creat Clear Calc Estimated GFR POC Glucose 268 H 311 H 396 H* Random Glucose Estimat Average Glucose Hemoglobin A1c % Calcium Magnesium Triglycerides Cholesterol LDL Cholesterol, Calc HDL Cholesterol Vitamin B12 Folate TSH Free T4 Medications Medications Current Medications Acetaminophen (Acetaminophen 325 Mg Tablet) 650 mg PO Q6H PRN PRN Reason: Headache/Pain Mild Scale (1-3) Last Admin: 02/27/22 12:37 Dose: 650 mg Al Hydroxide/Mg Hydroxide (Magnesium Hydrox/Alum Hydrox 30 Ml Oral.Susp) 30 ml PO Q6H PRN PRN Reason: Heartburn/Nausea Atorvastatin Calcium (Atorvastatin Calcium 80 Mg Tablet) 80 mg PO DAILY [facility] Last Admin: 02/27/22 08:00 Dose: 80 mg Bupropion HCl (Bupropion Hcl Xl 150 Mg Tab.Er.24h) 150 mg PO DAILY [facility] Last Admin: 02/27/22 08:00 Dose: 150 mg Divalproex Sodium (Divalproex Sodium 500 Mg Tablet.) 500 mg PO DAILY [facility] Last Admin: 02/27/22 08:00 Dose: 500 mg Divalproex Sodium (Divalproex Sodium 500 Mg Tablet.) 1,000 mg PO BEDTIME [facility] Last Admin: 02/27/22 19:54 Dose: 1,000 mg Fenofibrate (Fenofibrate 54 Mg Tablet) 54 mg PO DAILY [facility] Last Admin: 02/27/22 08:09 Dose: 54 mg Fluticasone/Vilanterol (Fluticasone/Vilanterol 100/25 Blst.W.Dev) 1 puff INHALE RDAILY [facility] Last Admin: 02/27/22 08:02 Dose: Not Given Gabapentin (Gabapentin 300 Mg Capsule) 300 mg PO BID [facility] Last Admin: 02/27/22 19:53 Dose: 300 mg Haloperidol (Haloperidol 5 Mg Tablet) 5 mg PO DAILY [facility] Last Admin: 02/27/22 08:00 Dose: 5 mg Haloperidol (Haloperidol 5 Mg Tablet) 10 mg PO BEDTIME [facility] Last Admin: 02/27/22 19:53 Dose: 10 mg Hydroxyzine HCl (Hydroxyzine Hcl 25 Mg Tablet) 25 mg PO Q6H PRN PRN Reason: Anxiety Insulin Glargine (Insulin Glargine,Hum.Rec.Anlog 100 Unit/Ml 10 Ml Vial) 120 unit SUBCUT BEDTIME [facility] Last Admin: 02/27/22 19:52 Dose: 120 unit Insulin Human Lispro (Insulin Lispro 100 Unit/Ml 3 Ml Vial) 0 unit SUBCUT QIDACHS [facility]; Protocol Last Admin: 02/27/22 17:25 Dose: 30 unit Lamotrigine (Lamotrigine 25 Mg Tablet) 50 mg PO DAILY [facility] Last Admin: 02/27/22 08:00 Dose: 50 mg Lorazepam (Lorazepam 1 Mg Tablet) 1 mg PO BID PRN PRN Reason: anxiety Last Admin: 02/27/22 11:00 Dose: 1 mg Magnesium Hydroxide (Milk Of Magnesia 30 Ml Oral.Susp) 30 ml PO DAILY PRN PRN Reason: Constipation Metformin HCl (Metformin Hcl Er 500 Mg Tab.Er.24h) 1,000 mg PO BID [facility] Last Admin: 02/27/22 19:53 Dose: 1,000 mg Nicotine Polacrilex (Nicotine Polacrilex 2 Mg Gum) 2 mg BUCCAL Q1H PRN PRN Reason: Nicotine Cravings Last Admin: 02/27/22 17:25 Dose: 2 mg Non-Formulary Medication (Dulaglutide [Trulicity]) 0.75 mg SUBCUT Q7D [facility] Omeprazole (Omeprazole 20 Mg Capsule.Dr) 20 mg PO DAILY@0630 [facility] Last Admin: 02/27/22 08:00 Dose: 20 mg Simethicone (Simethicone 80 Mg Tab.Chew) 80 mg PO QIDWMHS [facility] Last Admin: 02/27/22 19:54 Dose: 80 mg Trazodone HCl (Trazodone Hcl 50 Mg Tablet) 50 mg PO BEDTIME PRN PRN Reason: Insomnia Allergies Allergies Allergy/AdvReac Type Severity Reaction Status Date / Time No Known Allergies Allergy Verified 07/07/21 13:26 [No Known Allergies*] Assessment & Plan Assessment & Plan (1) Schizoaffective disorder, bipolar type: Status: Acute Code(s): F25.0 - Schizoaffective disorder, bipolar type (2) Borderline personality disorder in adult: Status: Acute Code(s): F60.3 - Borderline personality disorder (3) Diabetes type 2, uncontrolled: Status: Acute Code(s): E11.65 - Type 2 diabetes mellitus with hyperglycemia (4) Asthma: Status: Acute Code(s): J45.909 - Unspecified asthma, uncomplicated Plan 02/26/22- Continue current plan BMP 02/27/22 02/27/22 Continue current plan. I spent minutes with the patient and/or on the patient floor today, greater than?50% of which was spent counseling/coordinating care. Patient educated on: therapeutic strategies Informed Consent: understands and further education needed Reason for contiued inpatient stay Substantial Risk for: harm to self, harm to others, inability to function and rapid decompensation
[2022-02-27 20:34] LABS: Glucose, Whole Blood 492 mg/dL (60-115)
[2022-02-28 06:42] LABS: Glucose, Whole Blood 262 mg/dL (60-115)
[2022-02-28 08:35] VITALS: BP 105/51; PULSE 68; RESP 20; TEMP 36.8; O2SAT 97
[2022-02-28] MEDS: HaloperidoL 5 MG TABLET PO (09:00)
[2022-02-28] MEDS: metFORMIN HCl ER 500 MG TAB.ER.24H 1000 MG PO ×2 (09:00→19:46)
[2022-02-28] MEDS: Atorvastatin Calcium 80 MG TABLET PO (09:00)
[2022-02-28] MEDS: Simethicone 80 MG TAB.CHEW PO ×4 (09:00→19:46)
[2022-02-28] MEDS: Divalproex Sodium 500 MG TABLET.DR PO (09:00)
[2022-02-28] MEDS: Fenofibrate 54 MG TABLET PO (09:00)
[2022-02-28] MEDS: Omeprazole 20 MG CAPSULE.DR PO (09:00)
[2022-02-28] MEDS: buPROPion HCl XL 150 MG TAB.ER.24H PO (09:00)
[2022-02-28] MEDS: Gabapentin 300 MG CAPSULE PO ×2 (09:00→19:46)
[2022-02-28] MEDS: lamoTRIgine 25 MG TABLET 50 MG PO (09:00)
[2022-02-28] MEDS: Insulin Lispro 100 UNIT/ML 3 ML VIAL SUBCUT ×4 (09:01→21:25)
--- NOTE | 2022-02-28 11:42 | PC.NURSE ---
Neville De La Vega made aware of patient high glucose 468.
[2022-02-28 11:46] LABS: Glucose, Whole Blood 468 mg/dL (60-115)
--- NOTE | 2022-02-28 11:56 | PC.NURSE ---
Neville De La Vega ordered additional 10 units of insulin coverage.
[2022-02-28] MEDS: Insulin Lispro 100 UNIT/ML 3 ML VIAL 10 UNIT SUBCUT (13:11)
[2022-02-28 16:59] LABS: Glucose, Whole Blood 331 mg/dL (60-115)
[2022-02-28] MEDS: Nicotine Polacrilex 2 MG GUM BUCCAL (17:44)
[2022-02-28 18:00] VITALS: BP 124/84; PULSE 138; RESP 20; TEMP 35.9; O2SAT 97
[2022-02-28] MEDS: Divalproex Sodium 500 MG TABLET.DR 1000 MG PO (19:46)
--- NOTE | 2022-02-28 19:46 | HO.PSYCHPN ---
Subjective Subjective Date of Service: 02/28/22 Reason For Visit: SI, Psychosis Subjective Notes: Conditional Voluntary Healthcare Proxy: No Guardianship: No Medical Problems Affecting Mental Status: No Interim History: Quietly engaged in milieu. No questions or concerns today. Social with peers. In bed for part of the day sleeping POC 468- given 40 units of sliding scale insulin Medication Compliance: Yes Side effects from medications: No Attending Groups: Intermittent Review of Systems Acute medical concerns: No Medical Review of Systems: unchanged Mental Status Exam Mental Status Exam Patient Appearance: Appropriate Patient Orientation: Person, Place, Time and Situation Level of Consciousness: Alert Patient Behavior: Anxious, Fearful, Avoidant, Distractible and Isolative Mood Description: Constricted Affect Description: Constricted Patient Cognition Impaired: No Ability to Follow Directions: Fair Speech Pattern: Spontaneous Speech Memory Description: Episodic Impaired Hallucinations: None Delusions: Not Present Perceptual Disturbances: Derealization Thought Process: Distracted Thought Content: positive for [place] and positive for Evasive Depressive Symptoms: Changes in Appetite, Sleeping More Than Usual, Loss of Int. in Activity, Significant Weight Gain, Increased Fatigue and Loss of Energy Abnormal Motor Activity Signs and Symptoms: Agitation Judgement: Poor Diagnostics Vital Signs (24Hr): Vital Signs - 24 hr 02/28/22 08:35 Temperature 98.3 F Pulse Rate 68 Respiratory Rate 20 Blood Pressure 105/51 L Pulse Oximetry 97 Oxygen Delivery Method Room Air BMI result Body Mass Index 46.3 Labs Results: 02/24/22 19:50 02/27/22 07:30 Labs: Laboratory Results - last 48 hr 02/26/22 02/26/22 02/26/22 20:01 21:14 22:42 Sodium Potassium Chloride Carbon Dioxide Anion Gap BUN Creatinine Estim Creat Clear Calc Estimated GFR POC Glucose 588 H* 519 H* 445 H* Random Glucose Calcium 02/27/22 02/27/22 02/27/22 07:30 07:31 11:44 Sodium 140 Potassium 4.0 Chloride 102 Carbon Dioxide 23 Anion Gap 19 BUN 10 D Creatinine 0.80 Estim Creat Clear Calc 213.3 Estimated GFR > 60 POC Glucose 268 H 311 H Random Glucose 257 H D Calcium 9.4 02/27/22 02/27/22 02/28/22 15:42 20:29 06:36 Sodium Potassium Chloride Carbon Dioxide Anion Gap BUN Creatinine Estim Creat Clear Calc Estimated GFR POC Glucose 396 H* 492 H* 262 H Random Glucose Calcium 08/28/22 08/28/22 11:36 16:54 Sodium Potassium Chloride Carbon Dioxide Anion Gap BUN Creatinine Estim Creat Clear Calc Estimated GFR POC Glucose 468 H* 331 H Random Glucose Calcium Medications Medications Current Medications Acetaminophen (Acetaminophen 325 Mg Tablet) 650 mg PO Q6H PRN PRN Reason: Headache/Pain Mild Scale (1-3) Last Admin: 02/27/22 12:37 Dose: 650 mg Al Hydroxide/Mg Hydroxide (Magnesium Hydrox/Alum Hydrox 30 Ml Oral.Susp) 30 ml PO Q6H PRN PRN Reason: Heartburn/Nausea Atorvastatin Calcium (Atorvastatin Calcium 80 Mg Tablet) 80 mg PO DAILY [facility] Last Admin: 02/28/22 09:00 Dose: 80 mg Bupropion HCl (Bupropion Hcl Xl 150 Mg Tab.Er.24h) 150 mg PO DAILY [facility] Last Admin: 02/28/22 09:00 Dose: 150 mg Divalproex Sodium (Divalproex Sodium 500 Mg Tablet.) 500 mg PO DAILY [facility] Last Admin: 02/28/22 09:00 Dose: 500 mg Divalproex Sodium (Divalproex Sodium 500 Mg Tablet.) 1,000 mg PO BEDTIME [facility] Last Admin: 02/27/22 19:54 Dose: 1,000 mg Fenofibrate (Fenofibrate 54 Mg Tablet) 54 mg PO DAILY [facility] Last Admin: 02/28/22 09:00 Dose: 54 mg Fluticasone/Vilanterol (Fluticasone/Vilanterol 100/25 Blst.W.Dev) 1 puff INHALE RDAILY [facility] Last Admin: 02/28/22 09:04 Dose: Not Given Gabapentin (Gabapentin 300 Mg Capsule) 300 mg PO BID [facility] Last Admin: 02/28/22 09:00 Dose: 300 mg Haloperidol (Haloperidol 5 Mg Tablet) 5 mg PO DAILY [facility] Last Admin: 02/28/22 09:00 Dose: 5 mg Haloperidol (Haloperidol 5 Mg Tablet) 10 mg PO BEDTIME [facility] Last Admin: 02/27/22 19:53 Dose: 10 mg Hydroxyzine HCl (Hydroxyzine Hcl 25 Mg Tablet) 25 mg PO Q6H PRN PRN Reason: Anxiety Insulin Glargine (Insulin Glargine,Hum.Rec.Anlog 100 Unit/Ml 10 Ml Vial) 120 unit SUBCUT BEDTIME [facility] Last Admin: 02/27/22 19:52 Dose: 120 unit Insulin Human Lispro (Insulin Lispro 100 Unit/Ml 3 Ml Vial) 0 unit SUBCUT QIDACHS [facility]; Protocol Last Admin: 02/28/22 17:43 Dose: 25 unit Lamotrigine (Lamotrigine 25 Mg Tablet) 50 mg PO DAILY [facility] Last Admin: 02/28/22 09:00 Dose: 50 mg Lorazepam (Lorazepam 1 Mg Tablet) 1 mg PO BID PRN PRN Reason: anxiety Last Admin: 02/27/22 11:00 Dose: 1 mg Magnesium Hydroxide (Milk Of Magnesia 30 Ml Oral.Susp) 30 ml PO DAILY PRN PRN Reason: Constipation Metformin HCl (Metformin Hcl Er 500 Mg Tab.Er.24h) 1,000 mg PO BID [facility] Last Admin: 02/28/22 09:00 Dose: 1,000 mg Nicotine Polacrilex (Nicotine Polacrilex 2 Mg Gum) 2 mg BUCCAL Q1H PRN PRN Reason: Nicotine Cravings Last Admin: 02/28/22 17:44 Dose: 2 mg Non-Formulary Medication (Dulaglutide [Trulicity]) 0.75 mg SUBCUT Q7D [facility] Omeprazole (Omeprazole 20 Mg Capsule.Dr) 20 mg PO DAILY@0630 [facility] Last Admin: 02/28/22 09:00 Dose: 20 mg Simethicone (Simethicone 80 Mg Tab.Chew) 80 mg PO QIDWMHS [facility] Last Admin: 02/28/22 17:44 Dose: 80 mg Trazodone HCl (Trazodone Hcl 50 Mg Tablet) 50 mg PO BEDTIME PRN PRN Reason: Insomnia Allergies Allergies Allergy/AdvReac Type Severity Reaction Status Date / Time No Known Allergies Allergy Verified 07/07/21 13:26 [No Known Allergies*] Assessment & Plan Assessment & Plan (1) Schizoaffective disorder, bipolar type: Status: Acute Code(s): F25.0 - Schizoaffective disorder, bipolar type (2) Borderline personality disorder in adult: Status: Acute Code(s): F60.3 - Borderline personality disorder (3) Diabetes type 2, uncontrolled: Status: Acute Code(s): E11.65 - Type 2 diabetes mellitus with hyperglycemia (4) Asthma: Status: Acute Code(s): J45.909 - Unspecified asthma, uncomplicated Plan 02/26/22- Continue current plan BMP 02/27/22 02/28/22- Discharge planning Collateral contact with out pt team I spent minutes with the patient and/or on the patient floor today, greater than?50% of which was spent counseling/coordinating care. Patient educated on: therapeutic strategies Informed Consent: understands Reason for contiued inpatient stay Substantial Risk for: rapid decompensation
[2022-02-28] MEDS: HaloperidoL 5 MG TABLET 10 MG PO (19:47)
[2022-02-28] MEDS: Insulin Glargine,Hum.rec.anlog 100 UNIT/ML 10 ML VIAL 120 UNIT SUBCUT (19:53)
[2022-02-28 21:18] LABS: Glucose, Whole Blood 401 mg/dL (60-115)
[2022-03-01 08:29] LABS: Glucose, Whole Blood 361 mg/dL (60-115)
[2022-03-01] MEDS: lamoTRIgine 25 MG TABLET 50 MG PO (08:30)
[2022-03-01] MEDS: Divalproex Sodium 500 MG TABLET.DR PO (08:30)
[2022-03-01] MEDS: Omeprazole 20 MG CAPSULE.DR PO (08:30)
[2022-03-01] MEDS: Atorvastatin Calcium 80 MG TABLET PO (08:30)
[2022-03-01] MEDS: Fenofibrate 54 MG TABLET PO (08:30)
[2022-03-01] MEDS: Simethicone 80 MG TAB.CHEW PO ×2 (08:30→22:51)
[2022-03-01] MEDS: Gabapentin 300 MG CAPSULE PO ×2 (08:30→22:51)
[2022-03-01] MEDS: HaloperidoL 5 MG TABLET PO (08:30)
[2022-03-01] MEDS: buPROPion HCl XL 150 MG TAB.ER.24H PO (08:30)
[2022-03-01 09:00] VITALS: BP 119/65; PULSE 87; RESP 22; TEMP 35.9; O2SAT 98
[2022-03-01] MEDS: Insulin Lispro 100 UNIT/ML 3 ML VIAL SUBCUT ×4 (09:29→22:53)
[2022-03-01] MEDS: Insulin Lispro 100 UNIT/ML 3 ML VIAL 10 UNIT SUBCUT (10:23)
[2022-03-01] MEDS: metFORMIN HCl ER 500 MG TAB.ER.24H 1000 MG PO ×2 (10:42→22:50)
--- NOTE | 2022-03-01 10:43 | PC.NURSE ---
YUKI Nava notified of high blood glucose. Additional 10 units humalog ordered in addition to sliding scale.
--- NOTE | 2022-03-01 12:40 | PC.NURSE ---
Patient blood sugar 407. YUKI Nava notified. Patient stated it is going to be as high as fuck . Observed snacking in kitchen prior to POC testing.
[2022-03-01 12:41] LABS: Glucose, Whole Blood 407 mg/dL (60-115)
[2022-03-01] MEDS: Insulin Lispro 100 UNIT/ML 3 ML VIAL 15 UNIT SUBCUT (13:10)
--- NOTE | 2022-03-01 16:58 | P.PNPSI_ITS ---
Subjective Subjective Date of Service: 03/01/22 Reason For Visit: SI, Psychosis Subjective Notes: 3 Day Healthcare Proxy: No Guardianship: Yes (per mother's report) Medical Problems Affecting Mental Status: Yes (DM- poorly controlled.) Interim History: Message left for Jamison Lucia [place] [phone] x [phone] to discuss pt's regime and changes she would like to see implemented. Discussion with mother x 2 who is struggling with pt and setting limits-expressing anger with singer songwriter that we are being truthful with him, then asking us to be truthful with him. States she will not take him home on 03/01 as she and family fear him given behavior and threatening actions. Discussed Section VII process and she responded that her status as guardian could keep him in without this-Education provided. Pt is visable today, but spending much time in bed. States he will leave tomorrow. Upset that respite is not an option due to his inability to provide self care for DM. Full med review with his mom and discussion of medication purpose and utilization. Medication Compliance: Yes Side effects from medications: No Attending Groups: Intermittent Review of Systems Acute medical concerns: No Medical Review of Systems: unchanged Mental Status Exam Mental Status Exam Patient Appearance: Appropriate Patient Orientation: Person, Place, Time and Situation Level of Consciousness: Alert Patient Behavior: Anxious, Fearful, Avoidant, Distractible and Isolative Mood Description: Constricted Affect Description: Constricted Patient Cognition Impaired: No Ability to Follow Directions: Fair Speech Pattern: Spontaneous Speech Memory Description: Episodic Impaired Hallucinations: None Delusions: Not Present Perceptual Disturbances: Derealization Thought Process: Distracted Thought Content: positive for [place] and positive for Evasive Depressive Symptoms: Changes in Appetite, Sleeping More Than Usual, Loss of Int. in Activity, Significant Weight Gain, Increased Fatigue and Loss of Energy Abnormal Motor Activity Signs and Symptoms: Agitation Judgement: Poor Diagnostics Vital Signs (24Hr): Vital Signs - 24 hr 02/28/22 18:00 03/01/22 09:00 Temperature 96.6 F L 96.7 F L Pulse Rate 138 H 87 Respiratory Rate 20 22 H Blood Pressure 124/84 119/65 Pulse Oximetry 97 98 Oxygen Delivery Method Room Air Room Air BMI result Body Mass Index 46.3 Labs Results: 02/24/22 19:50 02/27/22 07:30 Labs: Laboratory Results - last 48 hr 02/27/22 02/28/22 02/28/22 20:29 06:36 11:36 POC Glucose 492 H* 262 H 468 H* 02/28/22 02/28/22 03/01/22 16:54 21:14 08:18 POC Glucose 331 H 401 H* 361 H* 03/01/22 12:36 POC Glucose 407 H* Medications Medications Current Medications Acetaminophen (Acetaminophen 325 Mg Tablet) 650 mg PO Q6H PRN PRN Reason: Headache/Pain Mild Scale (1-3) Last Admin: 02/27/22 12:37 Dose: 650 mg Al Hydroxide/Mg Hydroxide (Magnesium Hydrox/Alum Hydrox 30 Ml Oral.Susp) 30 ml PO Q6H PRN PRN Reason: Heartburn/Nausea Atorvastatin Calcium (Atorvastatin Calcium 80 Mg Tablet) 80 mg PO DAILY [facility] Last Admin: 03/01/22 08:30 Dose: 80 mg Bupropion HCl (Bupropion Hcl Xl 150 Mg Tab.Er.24h) 150 mg PO DAILY [facility] Last Admin: 03/01/22 08:30 Dose: 150 mg Divalproex Sodium (Divalproex Sodium 500 Mg Tablet.) 500 mg PO DAILY [facility] Last Admin: 03/01/22 08:30 Dose: 500 mg Divalproex Sodium (Divalproex Sodium 500 Mg Tablet.) 1,000 mg PO BEDTIME [facility] Last Admin: 02/28/22 19:46 Dose: 1,000 mg Fenofibrate (Fenofibrate 54 Mg Tablet) 54 mg PO DAILY [facility] Last Admin: 03/01/22 08:30 Dose: 54 mg Fluticasone/Vilanterol (Fluticasone/Vilanterol 100/25 Blst.W.Dev) 1 puff INHALE RDAILY [facility] Last Admin: 03/01/22 09:30 Dose: Not Given Gabapentin (Gabapentin 300 Mg Capsule) 300 mg PO BID [facility] Last Admin: 03/01/22 08:30 Dose: 300 mg Haloperidol (Haloperidol 5 Mg Tablet) 5 mg PO DAILY [facility] Last Admin: 03/01/22 08:30 Dose: 5 mg Haloperidol (Haloperidol 5 Mg Tablet) 10 mg PO BEDTIME [facility] Last Admin: 02/28/22 19:47 Dose: 10 mg Hydroxyzine HCl (Hydroxyzine Hcl 25 Mg Tablet) 25 mg PO Q6H PRN PRN Reason: Anxiety Insulin Glargine (Insulin Glargine,Hum.Rec.Anlog 100 Unit/Ml 10 Ml Vial) 120 unit SUBCUT BEDTIME [facility] Last Admin: 02/28/22 19:53 Dose: 120 unit Insulin Human Lispro (Insulin Lispro 100 Unit/Ml 3 Ml Vial) 0 unit SUBCUT QIDACHS [facility]; Protocol Last Admin: 03/01/22 13:02 Dose: 30 unit Lamotrigine (Lamotrigine 25 Mg Tablet) 50 mg PO DAILY [facility] Last Admin: 03/01/22 08:30 Dose: 50 mg Lorazepam (Lorazepam 1 Mg Tablet) 1 mg PO BID PRN PRN Reason: anxiety Last Admin: 02/27/22 11:00 Dose: 1 mg Magnesium Hydroxide (Milk Of Magnesia 30 Ml Oral.Susp) 30 ml PO DAILY PRN PRN Reason: Constipation Metformin HCl (Metformin Hcl Er 500 Mg Tab.Er.24h) 1,000 mg PO BID [facility] Last Admin: 03/01/22 10:42 Dose: 1,000 mg Nicotine Polacrilex (Nicotine Polacrilex 2 Mg Gum) 2 mg BUCCAL Q1H PRN PRN Reason: Nicotine Cravings Last Admin: 02/28/22 17:44 Dose: 2 mg Omeprazole (Omeprazole 20 Mg Capsule.Dr) 20 mg PO DAILY@0630 [facility] Last Admin: 03/01/22 08:30 Dose: 20 mg Simethicone (Simethicone 80 Mg Tab.Chew) 80 mg PO QIDWMHS [facility] Last Admin: 03/01/22 14:14 Dose: Not Given Allergies Allergies Allergy/AdvReac Type Severity Reaction Status Date / Time No Known Allergies Allergy Verified 07/07/21 13:26 [No Known Allergies*] Assessment & Plan Assessment & Plan (1) Schizoaffective disorder, bipolar type: Status: Acute Code(s): F25.0 - Schizoaffective disorder, bipolar type (2) Borderline personality disorder in adult: Status: Acute Code(s): F60.3 - Borderline personality disorder (3) Diabetes type 2, uncontrolled: Status: Acute Code(s): E11.65 - Type 2 diabetes mellitus with hyperglycemia (4) Asthma: Status: Acute Code(s): J45.909 - Unspecified asthma, uncomplicated Plan 02/26/22- Continue current plan BMP 02/27/22 02/28/22- Discharge planning Collateral contact with out pt team 03/01/22- Will plan on Section VII or asking pt to retract TDN on 03/02. Family refusing to take him home-mother wants medications to be in order and behaviors to extinguish. Continue current plan until consultation with OP team I spent minutes with the patient and/or on the patient floor today, grea ter than?50% of which was spent counseling/coordinating care. Patient educated on: medication risk/benefits and therapeutic strategies Informed Consent: further education needed Reason for contiued inpatient stay Substantial Risk for: harm to self, harm to others, inability to function and rapid decompensation
[2022-03-01 17:30] LABS: Glucose, Whole Blood 223 mg/dL (60-115)
[2022-03-01 18:00] VITALS: BP 127/60; PULSE 95; TEMP 36.2
[2022-03-01 21:31] LABS: Glucose, Whole Blood 362 mg/dL (60-115)
[2022-03-01] MEDS: Divalproex Sodium 500 MG TABLET.DR 1000 MG PO (22:50)
[2022-03-01] MEDS: HaloperidoL 5 MG TABLET 10 MG PO (22:52)
[2022-03-01] MEDS: Insulin Glargine,Hum.rec.anlog 100 UNIT/ML 10 ML VIAL 120 UNIT SUBCUT (22:54)
[2022-03-02 06:00] VITALS: BP 126/70; PULSE 87; RESP 16; TEMP 36.6; O2SAT 97
[2022-03-02 08:19] LABS: Glucose, Whole Blood 310 mg/dL (60-115)
[2022-03-02] MEDS: metFORMIN HCl ER 500 MG TAB.ER.24H 1000 MG PO (09:48)
[2022-03-02] MEDS: Gabapentin 300 MG CAPSULE PO (09:48)
[2022-03-02] MEDS: buPROPion HCl XL 150 MG TAB.ER.24H PO (09:48)
[2022-03-02] MEDS: Divalproex Sodium 500 MG TABLET.DR PO (09:48)
[2022-03-02] MEDS: Simethicone 80 MG TAB.CHEW PO ×3 (09:48→16:48)
[2022-03-02] MEDS: Fenofibrate 54 MG TABLET PO (09:48)
[2022-03-02] MEDS: Atorvastatin Calcium 80 MG TABLET PO (09:49)
[2022-03-02] MEDS: lamoTRIgine 25 MG TABLET 50 MG PO (09:49)
[2022-03-02] MEDS: HaloperidoL 5 MG TABLET PO (09:49)
[2022-03-02] MEDS: Insulin Lispro 100 UNIT/ML 3 ML VIAL SUBCUT ×4 (09:54→21:15)
[2022-03-02] MEDS: LORazepam 1 MG TABLET PO (10:45)
[2022-03-02] MEDS: OLANZapine ODT 10 MG TAB.RAPDIS TRANSLINGU (10:45)
[2022-03-02] MEDS: Acetaminophen 325 MG TABLET 650 MG PO (11:25)
[2022-03-02] MEDS: hydrOXYzine HCL 25 MG TABLET PO (11:25)
[2022-03-02 12:51] LABS: Glucose, Whole Blood 410 mg/dL (60-115)
--- NOTE | 2022-03-02 13:59 | PC.NURSE ---
Patient had outburst when he was told that he was not going to be discharged today. Reported to have punch the wall. In hallway crying. Patient took medications and calmed down.
[2022-03-02 16:37] LABS: Glucose, Whole Blood 342 mg/dL (60-115)
--- NOTE | 2022-03-02 17:32 | PC.NURSE ---
Pt continues to eat jello/cookies/crackers from the kitchen. Pt is advised several time about eating low carbohydrate and low sugar food. Pt chooses not to comply with diet restrictions saying, i can eat whatever i want.
[2022-03-02 18:00] VITALS: RESP 16
--- NOTE | 2022-03-02 18:39 | P.PNPSI_ITS ---
Subjective Subjective Date of Service: 03/02/22 Reason For Visit: SI, Psychosis Subjective Notes: 3 Day Healthcare Proxy: No Guardianship: Yes Medical Problems Affecting Mental Status: Yes (DM- uncontrolled) Interim History: Three day notice expires today. Pt refusing to remain in patient, demanding to leave. Mother, his guardian, refuses to have him leave. Several calls to OP prescriber, Pedro Jenkins [phone] as mother reports during last admit she was not consulted and wants med changes- Pedro has tw voice mail to leave her thoughts about changes so we may assess, discuss with pt and mother, and implement. No word yet. Met with pt, discussed that we cannot let him leave due to guardian's refusal, having no place to go and being at risk alone in community and not having completed all of the in pt work requested yet. Pt asked to call mom. We did a conference call-pt unable to reason-screaming, crying, demanding to leave- hit the wall due to anger, expressing verbally his anger. Mom told him that she was not ready for him to leave. Discussed with pt options of retraction of three day notice, or Section VII. He chose retraction. Given prn Olanzapine/Lorazepam. Allowed xray R hand-negative. Medication Compliance: Yes Side effects from medications: No Attending Groups: Intermittent Review of Systems Acute medical concerns: No Medical Review of Systems: unchanged Review of Systems Reports behavioral changes Psychiatric: Reports abnormal sleep pattern, Reports anxiety, Reports behavioral changes, Reports change in appetite, Reports depression, Reports hopelessness, Reports irritability, Reports anhedonia and Reports mood swings Mental Status Exam Mental Status Exam Patient Appearance: Appropriate Patient Orientation: Person, Place, Time and Situation Level of Consciousness: Restless, Alert, Inappropriate and Combative Patient Behavior: Talkative, Self Manipulative, Aggressive, Restless, Belligerent, Verbal Threats, Swearing, Resistive to Care, Combative, Distractible, Good Eye Contact, Crying, Uncooperative, Impulsive and Pacing Mood Description: Hostile, Anxious, Labile, Angry and Apprehensive Affect Description: Labile Patient Cognition Impaired: No Ability to Follow Directions: Fair Speech Pattern: Perseverating, Spontaneous Speech, Excessive, Loud and Includes Profanity Memory Description: Episodic Impaired Hallucinations: None Delusions: Not Present Perceptual Disturbances: Derealization Thought Process: Illogical, Distracted and Goal Oriented Thought Content: positive for [place], positive for Circumstantial, positive for Goal Oriented and positive for Perseveration Depressive Symptoms: Changes in Appetite, Sleeping More Than Usual and Loss of Int. in Activity Abnormal Motor Activity Signs and Symptoms: Aggression, Agitation and Restlessness Judgement: Poor Diagnostics Vital Signs (24Hr): Vital Signs - 24 hr 03/02/22 06:00 Temperature 97.8 F Pulse Rate 87 Respiratory Rate 16 Blood Pressure 126/70 Pulse Oximetry 97 Oxygen Delivery Method Room Air BMI result Body Mass Index 46.3 Labs Results: 02/24/22 19:50 02/27/22 07:30 Labs: Laboratory Results - last 48 hr 02/28/22 03/01/22 03/01/22 21:14 08:18 12:36 POC Glucose 401 H* 361 H* 407 H* 03/01/22 03/01/22 03/02/22 17:26 21:27 08:15 POC Glucose 223 H 362 H* 310 H 03/02/22 03/02/22 12:47 16:33 POC Glucose 410 H* 342 H Imaging Radiology Impressions: ITS Impressions Hand X-Ray 03/02/22 11:27 IMPRESSION: Mild to moderate soft tissue swelling without acute underlying osseous abnormality. Medications Medications Current Medications Acetaminophen (Acetaminophen 325 Mg Tablet) 650 mg PO Q6H PRN PRN Reason: Headache/Pain Mild Scale (1-3) Last Admin: 03/02/22 11:25 Dose: 650 mg Al Hydroxide/Mg Hydroxide (Magnesium Hydrox/Alum Hydrox 30 Ml Oral.Susp) 30 ml PO Q6H PRN PRN Reason: Heartburn/Nausea Atorvastatin Calcium (Atorvastatin Calcium 80 Mg Tablet) 80 mg PO DAILY [facility] Last Admin: 03/02/22 09:49 Dose: 80 mg Bupropion HCl (Bupropion Hcl Xl 150 Mg Tab.Er.24h) 150 mg PO DAILY [facility] Last Admin: 03/02/22 09:48 Dose: 150 mg Divalproex Sodium (Divalproex Sodium 500 Mg Tablet.Dr) 500 mg PO DAILY [facility] Last Admin: 03/02/22 09:48 Dose: 500 mg Divalproex Sodium (Divalproex Sodium 500 Mg Tablet.) 1,000 mg PO BEDTIME [facility] Last Admin: 03/01/22 22:50 Dose: 1,000 mg Fenofibrate (Fenofibrate 54 Mg Tablet) 54 mg PO DAILY [facility] Last Admin: 03/02/22 09:48 Dose: 54 mg Fluticasone/Vilanterol (Fluticasone/Vilanterol 100/25 Blst.W.Dev) 1 puff INHALE RDAILY [facility] Last Admin: 03/02/22 09:55 Dose: Not Given Gabapentin (Gabapentin 300 Mg Capsule) 300 mg PO BID [facility] Last Admin: 03/02/22 09:48 Dose: 300 mg Haloperidol (Haloperidol 5 Mg Tablet) 5 mg PO DAILY [facility] Last Admin: 03/02/22 09:49 Dose: 5 mg Haloperidol (Haloperidol 5 Mg Tablet) 10 mg PO BEDTIME [facility] Last Admin: 03/01/22 22:52 Dose: 10 mg Hydroxyzine HCl (Hydroxyzine Hcl 25 Mg Tablet) 25 mg PO Q6H PRN PRN Reason: Anxiety Last Admin: 03/02/22 11:25 Dose: 25 mg Insulin Glargine (Insulin Glargine,Hum.Rec.Anlog 100 Unit/Ml 10 Ml Vial) 120 unit SUBCUT BEDTIME [facility] Last Admin: 03/01/22 22:54 Dose: 120 unit Insulin Human Lispro (Insulin Lispro 100 Unit/Ml 3 Ml Vial) 0 unit SUBCUT QIDACHS [facility]; Protocol Last Admin: 03/02/22 16:48 Dose: 25 unit Lamotrigine (Lamotrigine 25 Mg Tablet) 50 mg PO DAILY [facility] Last Admin: 03/02/22 09:49 Dose: 50 mg Magnesium Hydroxide (Milk Of Magnesia 30 Ml Oral.Susp) 30 ml PO DAILY PRN PRN Reason: Constipation Metformin HCl (Metformin Hcl Er 500 Mg Tab.Er.24h) 1,000 mg PO BID [facility] Last Admin: 03/02/22 09:48 Dose: 1,000 mg Nicotine Polacrilex (Nicotine Polacrilex 2 Mg Gum) 2 mg BUCCAL Q1H PRN PRN Reason: Nicotine Cravings Last Admin: 02/28/22 17:44 Dose: 2 mg Omeprazole (Omeprazole 20 Mg Capsule.Dr) 20 mg PO DAILY@0630 [facility] Last Admin: 03/02/22 07:01 Dose: Not Given Simethicone (Simethicone 80 Mg Tab.Chew) 80 mg PO QIDWMHS [facility] Last Admin: 03/02/22 16:48 Dose: 80 mg Allergies Allergies Allergy/AdvReac Type Severity Reaction Status Date / Time No Known Allergies Allergy Verified 07/07/21 13:26 [No Known Allergies*] Assessment & Plan Assessment & Plan (1) Schizoaffective disorder, bipolar type: Status: Acute Code(s): F25.0 - Schizoaffective disorder, bipolar type (2) Borderline personality disorder in adult: Status: Acute Code(s): F60.3 - Borderline personality disorder (3) Diabetes type 2, uncontrolled: Status: Acute Code(s): E11.65 - Type 2 diabetes mellitus with hyperglycemia (4) Asthma: Status: Acute Code(s): J45.909 - Unspecified asthma, uncomplicated Plan 02/26/22- Continue current plan BMP 02/27/22 02/28/22- Discharge planning Collateral contact with out pt team 03/02/22- Three day notice expires. Mother, pt's guardian, refuses to have pt at home. Pt, very angry and agitated, did choose to retract his three day. Accepted a one time prn of Ativan and Olanzapine. I spent minutes with the patient and/or on the patient floor today, greater than?50% of which was spent counseling/coordinating care. Patient educated on: therapeutic strategies Informed Consent: further education needed Reason for contiued inpatient stay Substantial Risk for: harm to others, inability to function, rapid decompensation and med/psych decompensation
[2022-03-02] MEDS: Divalproex Sodium 500 MG TABLET.DR 1000 MG PO (19:31)
[2022-03-02] MEDS: HaloperidoL 5 MG TABLET 10 MG PO (19:32)
[2022-03-02] MEDS: Insulin Glargine,Hum.rec.anlog 100 UNIT/ML 10 ML VIAL 120 UNIT SUBCUT (19:33)
[2022-03-02 21:53] LABS: Glucose, Whole Blood 357 mg/dL (60-115)
[2022-03-03 06:00] VITALS: BP 123/58; PULSE 96; RESP 18; TEMP 36.3; O2SAT 95
[2022-03-03 07:58] LABS: Glucose, Whole Blood 572 mg/dL (60-115)
--- NOTE | 2022-03-03 08:00 | PC.NURSE ---
Addendum entered by Tali Spain RN 03/03/22 10:59: No new orders per . POC Recheck at 0935 was 440. notified. No new orders at this time. Original Note: Pt POC 572. Hospitalist notified via [place] [facility]. Awaiting new orders at this time.
[2022-03-03] MEDS: metFORMIN HCl ER 500 MG TAB.ER.24H 1000 MG PO ×2 (08:20→21:06)
[2022-03-03] MEDS: Divalproex Sodium 500 MG TABLET.DR PO (08:20)
[2022-03-03] MEDS: Omeprazole 20 MG CAPSULE.DR PO (08:20)
[2022-03-03] MEDS: buPROPion HCl XL 150 MG TAB.ER.24H PO (08:20)
[2022-03-03] MEDS: Gabapentin 300 MG CAPSULE PO ×2 (08:21→21:07)
[2022-03-03] MEDS: Atorvastatin Calcium 80 MG TABLET PO (08:21)
[2022-03-03] MEDS: Insulin Lispro 100 UNIT/ML 3 ML VIAL SUBCUT ×4 (08:21→21:56)
[2022-03-03] MEDS: Simethicone 80 MG TAB.CHEW PO ×3 (08:21→21:07)
[2022-03-03] MEDS: Fenofibrate 54 MG TABLET PO (08:21)
[2022-03-03] MEDS: lamoTRIgine 25 MG TABLET 50 MG PO (08:21)
[2022-03-03] MEDS: HaloperidoL 5 MG TABLET PO (08:21)
[2022-03-03 09:56] LABS: Glucose, Whole Blood 440 mg/dL (60-115)
[2022-03-03 12:01] LABS: Glucose, Whole Blood 330 mg/dL (60-115)
--- NOTE | 2022-03-03 16:35 | P.PNPSI_ITS ---
Subjective Subjective Date of Service: 03/03/22 Reason For Visit: SI, Psychosis Subjective Notes: Conditional Voluntary Healthcare Proxy: No Guardianship: No Medical Problems Affecting Mental Status: No Interim History: Continues to demand to leave. Unable to discuss, process or review a plan for his treatment and discharge. Pt screams, is accusatory, states that we lie to him and becomes immediately agitated if any plan but discharge to home is approached. Discussed with mother-reviewed team goals, take medicines, have Invega IM which is due 03/04, consider OP prescriber's recommendations for change (Pedro Swift only works on Tue-Tue, left a message on 03/01 with no specific medication concerns or recommendations), attend group, utilize counseling opportunities on the unit each shift. Pt declines to follow a diabetic diet plan of care. He reports he will eat/drink what he wants and no one will tell him differently. Medication Compliance: Yes Side effects from medications: No Attending Groups: No Review of Systems Acute medical concerns: Yes DM Medical Review of Systems: unchanged Mental Status Exam Mental Status Exam Patient Appearance: Appropriate Patient Orientation: Person, Place, Time and Situation Level of Consciousness: Restless, Alert, Inappropriate and Combative Patient Behavior: Talkative, Self Manipulative, Aggressive, Restless, Belligerent, Verbal Threats, Swearing, Resistive to Care, Combative, Distractible, Good Eye Contact, Crying, Uncooperative, Impulsive and Pacing Mood Description: Hostile, Anxious, Labile, Angry and Apprehensive Affect Description: Labile Patient Cognition Impaired: No Ability to Follow Directions: Fair Speech Pattern: Perseverating, Spontaneous Speech, Excessive, Loud and Includes Profanity Memory Description: Episodic Impaired Hallucinations: None Delusions: Not Present Perceptual Disturbances: Derealization Thought Process: Illogical, Distracted and Goal Oriented Thought Content: positive for [place], positive for Circumstantial, positive for Goal Oriented and positive for Perseveration Depressive Symptoms: Changes in Appetite, Sleeping More Than Usual and Loss of Int. in Activity Abnormal Motor Activity Signs and Symptoms: Aggression, Agitation and Restlessness Judgement: Poor Diagnostics Vital Signs (24Hr): Vital Signs - 24 hr 03/02/22 18:00 03/03/22 06:00 Temperature 97.3 F Pulse Rate 96 Respiratory Rate 16 18 Blood Pressure 123/58 L Pulse Oximetry 95 Oxygen Delivery Method Room Air BMI result Body Mass Index 46.3 Labs Results: 02/24/22 19:50 02/27/22 07:30 Labs: Laboratory Results - last 48 hr 03/01/22 03/01/22 03/02/22 17:26 21:27 08:15 POC Glucose 223 H 362 H* 310 H 03/02/22 03/02/22 03/02/22 12:47 16:33 20:48 POC Glucose 410 H* 342 H 357 H* 03/03/22 03/03/22 03/03/22 07:54 09:52 11:56 POC Glucose 572 H* 440 H* 330 H Imaging Radiology Impressions: ITS Impressions Hand X-Ray 03/02/22 11:27 IMPRESSION: Mild to moderate soft tissue swelling without acute underlying osseous abnormality. Medications Medications Current Medications Acetaminophen (Acetaminophen 325 Mg Tablet) 650 mg PO Q6H PRN PRN Reason: Headache/Pain Mild Scale (1-3) Last Admin: 03/02/22 11:25 Dose: 650 mg Al Hydroxide/Mg Hydroxide (Magnesium Hydrox/Alum Hydrox 30 Ml Oral.Susp) 30 ml PO Q6H PRN PRN Reason: Heartburn/Nausea Atorvastatin Calcium (Atorvastatin Calcium 80 Mg Tablet) 80 mg PO DAILY [facility] Last Admin: 03/03/22 08:21 Dose: 80 mg Bupropion HCl (Bupropion Hcl Xl 150 Mg Tab.Er.24h) 150 mg PO DAILY [facility] Last Admin: 03/03/22 08:20 Dose: 150 mg Divalproex Sodium (Divalproex Sodium 500 Mg Tablet.) 500 mg PO DAILY [facility] Last Admin: 03/03/22 08:20 Dose: 500 mg Divalproex Sodium (Divalproex Sodium 500 Mg Tablet.) 1,000 mg PO BEDTIME [facility] Last Admin: 03/02/22 19:31 Dose: 1,000 mg Fenofibrate (Fenofibrate 54 Mg Tablet) 54 mg PO DAILY [facility] Last Admin: 03/03/22 08:21 Dose: 54 mg Fluticasone/Vilanterol (Fluticasone/Vilanterol 100/25 Blst.W.Dev) 1 puff INHALE RDAILY [facility] Last Admin: 03/03/22 08:23 Dose: Not Given Gabapentin (Gabapentin 300 Mg Capsule) 300 mg PO BID [facility] Last Admin: 03/03/22 08:21 Dose: 300 mg Haloperidol (Haloperidol 5 Mg Tablet) 5 mg PO DAILY [facility] Last Admin: 03/03/22 08:21 Dose: 5 mg Haloperidol (Haloperidol 5 Mg Tablet) 10 mg PO BEDTIME [facility] Last Admin: 03/02/22 19:32 Dose: 10 mg Hydroxyzine HCl (Hydroxyzine Hcl 25 Mg Tablet) 25 mg PO Q6H PRN PRN Reason: Anxiety Last Admin: 03/02/22 11:25 Dose: 25 mg Insulin Glargine (Insulin Glargine,Hum.Rec.Anlog 100 Unit/Ml 10 Ml Vial) 120 unit SUBCUT BEDTIME [facility] Last Admin: 03/02/22 19:33 Dose: 120 unit Insulin Human Lispro (Insulin Lispro 100 Unit/Ml 3 Ml Vial) 0 unit SUBCUT QIDACHS [facility]; Protocol Last Admin: 03/03/22 11:58 Dose: 25 unit Lamotrigine (Lamotrigine 25 Mg Tablet) 50 mg PO DAILY [facility] Last Admin: 03/03/22 08:21 Dose: 50 mg Magnesium Hydroxide (Milk Of Magnesia 30 Ml Oral.Susp) 30 ml PO DAILY PRN PRN Reason: Constipation Metformin HCl (Metformin Hcl Er 500 Mg Tab.Er.24h) 1,000 mg PO BID [facility] Last Admin: 03/03/22 08:20 Dose: 1,000 mg Nicotine Polacrilex (Nicotine Polacrilex 2 Mg Gum) 2 mg BUCCAL Q1H PRN PRN Reason: Nicotine Cravings Last Admin: 02/28/22 17:44 Dose: 2 mg Omeprazole (Omeprazole 20 Mg Capsule.Dr) 20 mg PO DAILY@0630 [facility] Last Admin: 03/03/22 08:20 Dose: 20 mg Paliperidone Palmitate (Paliperidone Palmitate 234 Mg/1.5 Ml Syringe) 234 mg IM Q30D [facility] Simethicone (Simethicone 80 Mg Tab.Chew) 80 mg PO QIDWMHS [facility] Last Admin: 03/03/22 12:01 Dose: Not Given Allergies Allergies Allergy/AdvReac Type Severity Reaction Status Date / Time No Known Allergies Allergy Verified 07/07/21 13:26 [No Known Allergies*] Assessment & Plan Assessment & Plan (1) Schizoaffective disorder, bipolar type: Status: Acute Code(s): F25.0 - Schizoaffective disorder, bipolar type (2) Borderline personality disorder in adult: Status: Acute Code(s): F60.3 - Borderline personality disorder (3) Diabetes type 2, uncontrolled: Status: Acute Code(s): E11.65 - Type 2 diabetes mellitus with hyperglycemia (4) Asthma: Status: Acute Code(s): J45.909 - Unspecified asthma, uncomplicated Plan 02/26/22- Continue current plan BMP 02/27/22 02/28/22- Discharge planning Collateral contact with out pt team 03/02/22- Three day notice expires. Mother, pt's guardian, refuses to have pt at home. Pt, very angry and agitated, did choose to retract his three day. Accepted a one time prn of Ativan and Olanzapine. 03/03/22- Invega Sustenna 03/04/22. Pt informed and agrees. Again pt discussed with mother going home and mother supported team plan-pt responded with agitation. I spent minutes with the patient and/or on the patient floor today, greater than?50% of which was spent counseling/coordinating care. Patient educated on: therapeutic strategies Informed Consent: further education needed Reason for contiued inpatient stay Substantial Risk for: harm to others, inability to function, rapid decompensation and med/psych decompensation
[2022-03-03 17:39] LABS: Glucose, Whole Blood 469 mg/dL (60-115)
[2022-03-03 18:00] VITALS: BP 122/74; PULSE 82; RESP 16; TEMP 36.6; O2SAT 99
[2022-03-03] MEDS: Divalproex Sodium 500 MG TABLET.DR 1000 MG PO (21:07)
[2022-03-03] MEDS: HaloperidoL 5 MG TABLET 10 MG PO (21:07)
[2022-03-03 21:27] LABS: Glucose, Whole Blood > 600 mg/dL (60-115)
[2022-03-03] MEDS: Insulin Glargine,Hum.rec.anlog 100 UNIT/ML 10 ML VIAL 120 UNIT SUBCUT (21:56)
[2022-03-03 22:13] LABS: Glucose, Whole Blood 477 mg/dL (60-115)
--- NOTE | 2022-03-03 23:53 | PC.NURSE ---
Pt alert and oriented. POC at 1999 was greater than 600mg/dl. MD Pritchard notified, new melissa to give 30units of lispro and recheck POC in 15minutes done. New POC came down to 477mg/dl. notified again, another 30units of Lispro ordered and given pending recheck.
[2022-03-04 00:15] LABS: Glucose, Whole Blood 263 mg/dL (60-115)
[2022-03-04] MEDS: hydrOXYzine HCL 25 MG TABLET PO (00:23)
[2022-03-04 06:00] VITALS: BP 99/54; PULSE 73; RESP 16; TEMP 36; O2SAT 96
[2022-03-04 08:12] LABS: Glucose, Whole Blood 370 mg/dL (60-115)
[2022-03-04] MEDS: Insulin Lispro 100 UNIT/ML 3 ML VIAL SUBCUT ×4 (08:40→21:13)
[2022-03-04] MEDS: Omeprazole 20 MG CAPSULE.DR PO (08:42)
[2022-03-04] MEDS: Atorvastatin Calcium 80 MG TABLET PO (08:42)
[2022-03-04] MEDS: metFORMIN HCl ER 500 MG TAB.ER.24H 1000 MG PO ×2 (08:42→19:26)
[2022-03-04] MEDS: Fenofibrate 54 MG TABLET PO (08:42)
[2022-03-04] MEDS: Simethicone 80 MG TAB.CHEW PO ×2 (08:42→19:26)
[2022-03-04] MEDS: lamoTRIgine 25 MG TABLET 50 MG PO (08:42)
[2022-03-04] MEDS: Divalproex Sodium 500 MG TABLET.DR PO (08:42)
[2022-03-04] MEDS: HaloperidoL 5 MG TABLET PO (08:42)
[2022-03-04] MEDS: Gabapentin 300 MG CAPSULE PO ×2 (08:43→19:26)
[2022-03-04] MEDS: buPROPion HCl XL 150 MG TAB.ER.24H PO (08:43)
--- NOTE | 2022-03-04 09:29 | PC.NURSE ---
notified hospitalist, Dr Jones of blood glocuse 370. Administered 30 units. No new orders.
--- NOTE | 2022-03-04 11:55 | P.CONHOSP_ITS ---
History of Present Illness Data of Consult Service Date: 03/04/22 Requesting physician: Brando Pritchard Primary Care Provider: Gricel Daniel MD HPI 21 year old male with persistent asthma, uncontrolled insulin-dependent type 2 diabetes, with BPD, MDD, and schizoeffective disorder admitted to psychiatry with hyperglycemia. Patient has been hyperglycemic since arrival with glucose levels primarily ranging between 300-600. Hgb A1c on admission was 13.6%. Pt states his glucose levels are the same as here but admits he does not actually check them regularly. He uses tresiba 160 units every morning at home and 26 units humalog with meals at home along with trulicity and metformin BID. In the hospital has been receiving 120 units lantus nightly, humalog on sliding scale, and metformin. He is on regular diet stating I'm not going to change what I eat outside here . He states he feels fine. No blurred vision, lightheadedness, headaches, polyuria, or polydipsia. Review of Systems Review of Systems: General: No fevers, malaise, unintentional weight loss HEENT: No blurred vision, diplopia Cardiovascular: No chest pain, palpitations, or leg edema Respiratory: No shortness of breath, wheezing, cough GI: No abdominal pain, nausea, vomiting, diarrhea, constipation, melena, hematochezia Endo: No polyuria or polydipsia Neuro: No headaches, lightheadedness Skin: No rashes or lesions [facility] 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 Concussion Depression Depression Diabetes mellitus, type 2 Diabetes type 2, uncontrolled Hyperglycemia PTSD (post-traumatic stress disorder) Social History Household Members: Family Household Members Other:: mother, sister Housing: Apartment Do you presently have visiting nurse or other home services: No Alcohol intake: never Patient Tobacco Use Status: Current everyday Tobacco user Tobacco use type: Cigarette Cigarette Packs Per Day: 1 Cigarettes Per Day: 20.0 Years Smoked: 4 years Smoked in Last 30 Days: Yes e-Cigarette/Vaping Use: Currently Using Frequency of e-Cigarette/Vaping Use: Daily Patient Interested in Nicotine Replacement: Yes Patient Given Instructions on How to Stop Smoking: Yes Date Education Initiated: 02/25/22 Second Hand Smoke Exposure: Yes Use of substances other than those prescribed or required for medical reasons: No Substance Use Type: Marijuana Currently Displaying Signs/Symptoms of Drug Intoxication Withdrawal: No Other Past Substance Use Problem:: Pt. has used marijuana regularly in the past, but denies current use. Any prior treatment program specific to substance use: No Have you been hit, kicked, punched, or otherwise hurt by someone within the past year? If so, by whom?: No Do you feel safe in your current relationship?: No Current Relationship Is there a partner from a previous relationship who is making you feel unsafe now?: No Are you made to feel afraid or neglected: No Spiritual Healthcare Practices: no Buddhist Healthcare Practices: no Cultural Healthcare Practices: no Advance Directives: No Advance Directives Information Provided: No Do you have thoughts of harming others: None Do you have a plan to hurt others: No Plan Recently lost weight without trying: No Eating poorly because of decreased appetite: No Nutrition Risks: No Nutritional Risk Poor oral hygiene: No service: No Sexual orientation: Did not discuss Meds Allergies Allergy/AdvReac Type Severity Reaction Status Date / Time No Known Allergies Allergy Verified 07/07/21 13:26 [No Known Allergies*] Active Medications: Current Medications Acetaminophen (Acetaminophen 325 Mg Tablet) 650 mg PO Q6H PRN PRN Reason: Headache/Pain Mild Scale (1-3) Last Admin: 03/02/22 11:25 Dose: 650 mg Al Hydroxide/Mg Hydroxide (Magnesium Hydrox/Alum Hydrox 30 Ml Oral.Susp) 30 ml PO Q6H PRN PRN Reason: Heartburn/Nausea Atorvastatin Calcium (Atorvastatin Calcium 80 Mg Tablet) 80 mg PO DAILY [facility] Last Admin: 03/04/22 08:42 Dose: 80 mg Bupropion HCl (Bupropion Hcl Xl 150 Mg Tab.Er.24h) 150 mg PO DAILY [facility] Last Admin: 03/04/22 08:43 Dose: 150 mg Divalproex Sodium (Divalproex Sodium 500 Mg Tablet.) 500 mg PO DAILY [facility] Last Admin: 03/04/22 08:42 Dose: 500 mg Divalproex Sodium (Divalproex Sodium 500 Mg Tablet.) 1,000 mg PO BEDTIME [facility] Last Admin: 08/31/22 21:07 Dose: 1,000 mg Fenofibrate (Fenofibrate 54 Mg Tablet) 54 mg PO DAILY [facility] Last Admin: 03/04/22 08:42 Dose: 54 mg Fluticasone/Vilanterol (Fluticasone/Vilanterol 100/25 Blst.W.Dev) 1 puff INHALE RDAILY [facility] Last Admin: 03/04/22 09:59 Dose: Not Given Gabapentin (Gabapentin 300 Mg Capsule) 300 mg PO BID [facility] Last Admin: 03/04/22 08:43 Dose: 300 mg Haloperidol (Haloperidol 5 Mg Tablet) 5 mg PO DAILY [facility] Last Admin: 03/04/22 08:42 Dose: 5 mg Haloperidol (Haloperidol 5 Mg Tablet) 10 mg PO BEDTIME [facility] Last Admin: 03/03/22 21:07 Dose: 10 mg Hydroxyzine HCl (Hydroxyzine Hcl 25 Mg Tablet) 25 mg PO Q6H PRN PRN Reason: Anxiety Last Admin: 03/04/22 00:23 Dose: 25 mg Insulin Glargine (Insulin Glargine,Hum.Rec.Anlog 100 Unit/Ml 10 Ml Vial) 120 unit SUBCUT BEDTIME [facility] Last Admin: 03/03/22 21:56 Dose: 120 unit Insulin Human Lispro (Insulin Lispro 100 Unit/Ml 3 Ml Vial) 0 unit SUBCUT QIDACHS [facility]; Protocol Last Admin: 03/04/22 08:40 Dose: 30 unit Lamotrigine (Lamotrigine 25 Mg Tablet) 50 mg PO DAILY [facility] Last Admin: 03/04/22 08:42 Dose: 50 mg Magnesium Hydroxide (Milk Of Magnesia 30 Ml Oral.Susp) 30 ml PO DAILY PRN PRN Reason: Constipation Metformin HCl (Metformin Hcl Er 500 Mg Tab.Er.24h) 1,000 mg PO BID [facility] Last Admin: 03/04/22 08:42 Dose: 1,000 mg Nicotine Polacrilex (Nicotine Polacrilex 2 Mg Gum) 2 mg BUCCAL Q1H PRN PRN Reason: Nicotine Cravings Last Admin: 02/28/22 17:44 Dose: 2 mg Omeprazole (Omeprazole 20 Mg Capsule.Dr) 20 mg PO DAILY@0630 [facility] Last Admin: 03/04/22 08:42 Dose: 20 mg Paliperidone Palmitate (Paliperidone Palmitate 234 Mg/1.5 Ml Syringe) 234 mg IM Q30D [facility] Simethicone (Simethicone 80 Mg Tab.Chew) 80 mg PO QIDWMHS [facility] Last Admin: 03/04/22 08:42 Dose: 80 mg Home Medications Medication Instructions Recorded Confirmed Last Taken Type budesonide-formoterol HFA 80 2 puff PO BID 02/24/22 02/24/22 Unknown History mcg-4.5 mcg/actuation aerosol inhaler (Symbicort) bupropion HCl 150 mg 24 hr tablet, 1 tab PO DAILY 02/24/22 02/24/22 Unknown History extended release divalproex 500 mg tablet,delayed 1 tab PO QAM 02/24/22 02/24/22 Unknown History release divalproex 500 mg tablet,delayed 1,000 mg PO BEDTIME 02/24/22 02/24/22 Unknown History release dulaglutide 0.75 mg/0.5 mL 0.75 mg subcut QWEEK 02/24/22 02/24/22 Unknown History subcutaneous pen injector (Trulicity) fenofibrate micronized 43 mg 1 cap PO DAILY 02/24/22 02/24/22 Unknown History capsule gabapentin 300 mg capsule 1 cap PO BID 02/24/22 02/24/22 Unknown History haloperidol 5 mg tablet 1 tab PO QAM 02/24/22 02/24/22 Unknown History haloperidol 5 mg tablet 10 mg PO BEDTIME 02/24/22 02/24/22 Unknown History insulin degludec 200 unit/mL (3 160 unit subcut DAILY 02/24/22 02/24/22 Unknown History mL) subcutaneous pen (Tresiba FlexTouch U-200 insulin) insulin lispro 100 unit/mL 0 - 100 unit subcut DAILY 02/24/22 02/24/22 Unknown History subcutaneous pen (Humalog KwikPen (U-100) Insulin) lorazepam 1 mg tablet 1 tab PO BID PRN anxiety 02/24/22 02/24/22 Unknown History metformin 500 mg tablet,extended 2 tab PO BID 02/24/22 02/24/22 Unknown History release 24 hr omeprazole 20 mg capsule,delayed 1 cap PO DAILY 02/24/22 02/24/22 Unknown History release rosuvastatin 20 mg tablet 1 tab PO DAILY 02/24/22 02/24/22 Unknown History Physical Exam Vital Signs and Narrative: Vital Signs: Last Vital Signs Temp 96.8 F 03/04/22 06:00 Pulse 73 03/04/22 06:00 Resp 16 03/04/22 06:00 BP 99/54 L 03/04/22 06:00 Pulse Ox 96 03/04/22 06:00 O2 Del Method 03/04/22 06:00 BMI result Body Mass Index 46.3 Constitutional - Awake and Alert, No apparent distress Eyes - PERRLA, EOMI Cardiovascular - S1S2, RRR, No edema Respiratory - Normal lung expansion, Normal respiratory effort, No respiratory distress, CTA bilaterally Extremities - no calf tenderness bilaterally, no swelling Skin - Warm/Dry Neurological - Alert & oriented x3, CN II-XII in tact Psychological - Appropriate affect Results Labs CBC and Chem 7: 02/24/22 19:50 02/27/22 07:30 Labs: Laboratory Results - last 24 hr 03/03/22 03/03/22 03/03/22 11:56 17:35 21:21 POC Glucose 330 H 469 H* > 600 H* 03/03/22 03/04/22 03/04/22 22:08 00:11 08:09 POC Glucose 477 H* 263 H 370 H* Assessment and Plan (1) Schizoaffective disorder, bipolar type: Status: Acute (2) Borderline personality disorder in adult: Status: Acute (3) Diabetes type 2, uncontrolled: Status: Acute Plan 21 year old male with persistent asthma, uncontrolled insulin-dependent type 2 diabetes, with BPD, MDD, and schizoeffective disorder admitted to psychiatry with hyperglycemia consulted on for management of diabetes. 1- Insulin-dependent type 2 diabetes- uncontrolled with hgb A1c of 13.6% -Continue lantus 120 units nightly. Ordered additional 40 units every morning (uses 160 units tresiba at home) -Increase humalog SSI by 2 units -Continue metformin BID -Continue POC glucose levels -Recommend changing diet to diabetic diet -Would likely benefit from Nutrition consult for diabetes education as well as outpatient diabetes education as patient does not seem to have good grasp of risk of complications with uncontrolled glucose levels. 2-Schizoaffective d/o/Borderline personality d/o -Plan per psychiatry
[2022-03-04 12:24] LABS: Glucose, Whole Blood 497 mg/dL (60-115)
[2022-03-04] MEDS: Paliperidone Palmitate 234 MG/1.5 ML SYRINGE IM (12:48)
[2022-03-04] MEDS: Insulin Glargine,Hum.rec.anlog 100 UNIT/ML 10 ML VIAL 40 UNIT SUBCUT (13:31)
--- NOTE | 2022-03-04 16:18 | P.PNPSI_ITS ---
Subjective Subjective Date of Service: 03/04/22 Reason For Visit: SI, Psychosis Subjective Notes: Conditional Voluntary Interim History: Hospitalist consult for blood sugar increases appreciated. Team, [facility], [facility] working on respite admit for pt. Invega Sustenna IM given without adversity. Discussed respite with pt and mother-team reports in order to go pt needs stable mood, meds and blood sugars which are all being worked on. Out pt prescriber is not available until 03/09/22 for consultation. Medication Compliance: Yes Side effects from medications: No Attending Groups: Yes Review of Systems Acute medical concerns: No Medical Review of Systems: unchanged Mental Status Exam Mental Status Exam Patient Appearance: Appropriate Patient Orientation: Person, Place, Time and Situation Level of Consciousness: Restless, Alert, Inappropriate and Combative Patient Behavior: Talkative, Self Manipulative, Aggressive, Restless, Belligerent, Verbal Threats, Swearing, Resistive to Care, Combative, Distractible, Good Eye Contact, Crying, Uncooperative, Impulsive and Pacing Mood Description: Hostile, Anxious, Labile, Angry and Apprehensive Affect Description: Labile Patient Cognition Impaired: No Ability to Follow Directions: Fair Speech Pattern: Perseverating, Spontaneous Speech, Excessive, Loud and Includes Profanity Memory Description: Episodic Impaired Hallucinations: None Delusions: Not Present Perceptual Disturbances: Derealization Thought Process: Illogical, Distracted and Goal Oriented Thought Content: positive for [place], positive for Circumstantial, positive for Goal Oriented and positive for Perseveration Depressive Symptoms: Changes in Appetite, Sleeping More Than Usual and Loss of Int. in Activity Abnormal Motor Activity Signs and Symptoms: Aggression, Agitation and Restlessness Judgement: Poor Diagnostics Vital Signs (24Hr): Vital Signs - 24 hr 03/03/22 18:00 03/04/22 06:00 Temperature 97.8 F 96.8 F Pulse Rate 82 73 Respiratory Rate 16 16 Blood Pressure 122/74 99/54 L Pulse Oximetry 99 96 Oxygen Delivery Method Room Air Room Air BMI result Body Mass Index 46.3 Labs Results: 02/24/22 19:50 02/27/22 07:30 Labs: Laboratory Results - last 48 hr 03/02/22 03/02/22 03/03/22 16:33 20:48 07:54 POC Glucose 342 H 357 H* 572 H* 03/03/22 03/03/22 03/03/22 09:52 11:56 17:35 POC Glucose 440 H* 330 H 469 H* 03/03/22 03/03/22 03/04/22 21:21 22:08 00:11 POC Glucose > 600 H* 477 H* 263 H 03/04/22 03/04/22 08:09 12:18 POC Glucose 370 H* 497 H* Imaging Radiology Impressions: ITS Impressions Hand X-Ray 03/02/22 11:27 IMPRESSION: Mild to moderate soft tissue swelling without acute underlying osseous abnormality. Medications Medications Current Medications Acetaminophen (Acetaminophen 325 Mg Tablet) 650 mg PO Q6H PRN PRN Reason: Headache/Pain Mild Scale (1-3) Last Admin: 03/02/22 11:25 Dose: 650 mg Al Hydroxide/Mg Hydroxide (Magnesium Hydrox/Alum Hydrox 30 Ml Oral.Susp) 30 ml PO Q6H PRN PRN Reason: Heartburn/Nausea Atorvastatin Calcium (Atorvastatin Calcium 80 Mg Tablet) 80 mg PO DAILY [facility] Last Admin: 03/04/22 08:42 Dose: 80 mg Bupropion HCl (Bupropion Hcl Xl 150 Mg Tab.Er.24h) 150 mg PO DAILY [facility] Last Admin: 03/04/22 08:43 Dose: 150 mg Divalproex Sodium (Divalproex Sodium 500 Mg Tablet.) 500 mg PO DAILY [facility] Last Admin: 03/04/22 08:42 Dose: 500 mg Divalproex Sodium (Divalproex Sodium 500 Mg Tablet.) 1,000 mg PO BEDTIME [facility] Last Admin: 03/03/22 21:07 Dose: 1,000 mg Fenofibrate (Fenofibrate 54 Mg Tablet) 54 mg PO DAILY [facility] Last Admin: 03/04/22 08:42 Dose: 54 mg Fluticasone/Vilanterol (Fluticasone/Vilanterol 100/25 Blst.W.Dev) 1 puff INHALE RDAILY [facility] Last Admin: 03/04/22 09:59 Dose: Not Given Gabapentin (Gabapentin 300 Mg Capsule) 300 mg PO BID [facility] Last Admin: 03/04/22 08:43 Dose: 300 mg Haloperidol (Haloperidol 5 Mg Tablet) 5 mg PO DAILY [facility] Last Admin: 03/04/22 08:42 Dose: 5 mg Haloperidol (Haloperidol 5 Mg Tablet) 10 mg PO BEDTIME [facility] Last Admin: 03/03/22 21:07 Dose: 10 mg Hydroxyzine HCl (Hydroxyzine Hcl 25 Mg Tablet) 25 mg PO Q6H PRN PRN Reason: Anxiety Last Admin: 03/04/22 00:23 Dose: 25 mg Insulin Glargine (Insulin Glargine,Hum.Rec.Anlog 100 Unit/Ml 10 Ml Vial) 120 unit SUBCUT BEDTIME [facility] Last Admin: 03/03/22 21:56 Dose: 120 unit Insulin Glargine (Insulin Glargine,Hum.Rec.Anlog 100 Unit/Ml 10 Ml Vial) 40 un it SUBCUT DAILY [facility] Last Admin: 03/04/22 13:31 Dose: 40 unit Insulin Human Lispro (Insulin Lispro 100 Unit/Ml 3 Ml Vial) 0 unit SUBCUT QIDACHS [facility]; Protocol Last Admin: 03/04/22 12:28 Dose: 32 unit Lamotrigine (Lamotrigine 25 Mg Tablet) 50 mg PO DAILY [facility] Last Admin: 03/04/22 08:42 Dose: 50 mg Magnesium Hydroxide (Milk Of Magnesia 30 Ml Oral.Susp) 30 ml PO DAILY PRN PRN Reason: Constipation Metformin HCl (Metformin Hcl Er 500 Mg Tab.Er.24h) 1,000 mg PO BID [facility] Last Admin: 03/04/22 08:42 Dose: 1,000 mg Nicotine Polacrilex (Nicotine Polacrilex 2 Mg Gum) 2 mg BUCCAL Q1H PRN PRN Reason: Nicotine Cravings Last Admin: 02/28/22 17:44 Dose: 2 mg Omeprazole (Omeprazole 20 Mg Capsule.Dr) 20 mg PO DAILY@0630 [facility] Last Admin: 03/04/22 08:42 Dose: 20 mg Paliperidone Palmitate (Paliperidone Palmitate 234 Mg/1.5 Ml Syringe) 234 mg IM Q30D [facility] Last Admin: 03/04/22 12:48 Dose: 234 mg Simethicone (Simethicone 80 Mg Tab.Chew) 80 mg PO QIDWMHS [facility] Last Admin: 03/04/22 13:44 Dose: Not Given Allergies Allergies Allergy/AdvReac Type Severity Reaction Status Date / Time No Known Allergies Allergy Verified 07/07/21 13:26 [No Known Allergies*] Assessment & Plan Assessment & Plan (1) Schizoaffective disorder, bipolar type: Status: Acute Code(s): F25.0 - Schizoaffective disorder, bipolar type Assessment and Plan: 03/04/22 Sean Bee given Working with pt on alliances-today, no outbursts, able to engage in milieu-continues to want to go home, however pt's behaviors are a threat to his mother and sister. (2) Borderline personality disorder in adult: Status: Acute Code(s): F60.3 - Borderline personality disorder (3) Diabetes type 2, uncontrolled: Status: Acute Code(s): E11.65 - Type 2 diabetes mellitus with hyperglycemia Plan 21 year old male with persistent asthma, uncontrolled insulin-dependent type 2 diabetes, with BPD, MDD, and schizoeffective disorder admitted to psychiatry with hyperglycemia consulted on for management of diabetes. 1- Insulin-dependent type 2 diabetes- uncontrolled with hgb A1c of 13.6% -Continue lantus 120 units nightly. Ordered additional 40 units every morning (uses 160 units tresiba at home) -Increase humalog SSI by 2 units -Continue metformin BID -Continue POC glucose levels -Recommend changing diet to diabetic diet -Would likely benefit from Nutrition consult for diabetes education as well as outpatient diabetes education as patient does not seem to have good grasp of risk of complications with uncontrolled glucose levels. 2-Schizoaffective d/o/Borderline personality d/o -Plan per psychiatry I spent minutes with the patient and/or on the patient floor today, greater than?50% of which was spent counseling/coordinating care. Patient educated on: therapeutic strategies Informed Consent: understands and further education needed Reason for contiued inpatient stay Substantial Risk for: harm to others, inability to function and rapid decompensation
[2022-03-04 16:21] LABS: Glucose, Whole Blood 417 mg/dL (60-115)
[2022-03-04 18:00] VITALS: BP 122/82; PULSE 85; RESP 20; TEMP 36.6; O2SAT 98
[2022-03-04] MEDS: Divalproex Sodium 500 MG TABLET.DR 1000 MG PO (19:27)
[2022-03-04] MEDS: HaloperidoL 5 MG TABLET 10 MG PO (19:27)
[2022-03-04 20:15] LABS: Glucose, Whole Blood 353 mg/dL (60-115)
[2022-03-04] MEDS: Insulin Glargine,Hum.rec.anlog 100 UNIT/ML 10 ML VIAL 120 UNIT SUBCUT (21:07)
[2022-03-05 04:44] LABS: Glucose, Whole Blood 342 mg/dL (60-115)
[2022-03-05] MEDS: Nicotine Polacrilex 2 MG GUM BUCCAL ×3 (04:45→12:40)
[2022-03-05 05:47] VITALS: BP 181/65; PULSE 126; RESP 16; TEMP 35.8; O2SAT 96
[2022-03-05] MEDS: Acetaminophen 325 MG TABLET 650 MG PO (05:58)
[2022-03-05 08:16] LABS: Glucose, Whole Blood 440 mg/dL (60-115)
[2022-03-05] MEDS: buPROPion HCl XL 150 MG TAB.ER.24H PO (08:38)
[2022-03-05] MEDS: Simethicone 80 MG TAB.CHEW PO ×3 (08:38→21:04)
[2022-03-05] MEDS: lamoTRIgine 25 MG TABLET 50 MG PO (08:38)
[2022-03-05] MEDS: metFORMIN HCl ER 500 MG TAB.ER.24H 1000 MG PO ×2 (08:38→21:05)
[2022-03-05] MEDS: Divalproex Sodium 500 MG TABLET.DR PO (08:38)
[2022-03-05] MEDS: Omeprazole 20 MG CAPSULE.DR PO (08:38)
[2022-03-05] MEDS: Atorvastatin Calcium 80 MG TABLET PO (08:38)
[2022-03-05] MEDS: Gabapentin 300 MG CAPSULE PO ×2 (08:39→21:04)
[2022-03-05] MEDS: HaloperidoL 5 MG TABLET PO (08:39)
[2022-03-05] MEDS: Fenofibrate 54 MG TABLET PO (08:39)
[2022-03-05] MEDS: Insulin Lispro 100 UNIT/ML 3 ML VIAL SUBCUT ×4 (08:39→21:06)
[2022-03-05] MEDS: Fluticasone/Vilanterol 100/25 BLST.W.DEV 1 PUFF INHALE (08:41)
[2022-03-05] MEDS: Insulin Glargine,Hum.rec.anlog 100 UNIT/ML 10 ML VIAL 40 UNIT SUBCUT (08:41)
--- NOTE | 2022-03-05 10:04 | PC.NURSE ---
blood sugar 440. gave 35 units insulin. hospitalist notified. no new orders.
[2022-03-05 12:10] LABS: Glucose, Whole Blood 437 mg/dL (60-115)
--- NOTE | 2022-03-05 13:56 | HO.PSYCHPN ---
Subjective Subjective Date of Service: 03/05/22 Reason For Visit: SI, Psychosis Subjective Notes: Conditional Voluntary Interim History: Pt wanting to go home. Discussed working toward respite admit so he can trial this and if it works have it as an option in the future. He agreed, settled and participated in the milieu. No outbursts with tw today. Discussed with mom that we are attempting to help pt meet respite criteria. Medication Compliance: Yes Side effects from medications: No Attending Groups: Yes Mental Status Exam Mental Status Exam Patient Appearance: Appropriate Patient Orientation: Person, Place, Time and Situation Level of Consciousness: Restless and Alert Patient Behavior: Talkative, Restless, Distractible, Good Eye Contact and Impulsive Mood Description: Anxious, Labile and Apprehensive Affect Description: Labile Patient Cognition Impaired: No Ability to Follow Directions: Fair Speech Pattern: Perseverating and Spontaneous Speech Memory Description: Episodic Impaired Hallucinations: None Delusions: Not Present Perceptual Disturbances: Derealization Thought Process: Distracted and Goal Oriented Thought Content: positive for [place], positive for Circumstantial, positive for Goal Oriented and positive for Perseveration Depressive Symptoms: Changes in Appetite, Sleeping More Than Usual and Loss of Int. in Activity Abnormal Motor Activity Signs and Symptoms: Restlessness Judgement: Fair Diagnostics Vital Signs (24Hr): Vital Signs - 24 hr 03/04/22 18:00 03/05/22 05:47 Temperature 97.9 F 96.4 F L Pulse Rate 85 126 H Respiratory Rate 20 16 Blood Pressure 122/82 181/65 H Pulse Oximetry 98 96 Oxygen Delivery Method Room Air Room Air BMI result Body Mass Index 46.3 Labs Results: 02/24/22 19:50 02/27/22 07:30 Labs: Laboratory Results - last 48 hr 03/03/22 03/03/22 03/03/22 17:35 21:21 22:08 POC Glucose 469 H* > 600 H* 477 H* 03/04/22 03/04/22 03/04/22 00:11 08:09 12:18 POC Glucose 263 H 370 H* 497 H* 03/04/22 03/04/22 03/05/22 16:17 20:10 04:40 POC Glucose 417 H* 353 H* 342 H 03/05/22 03/05/22 08:13 12:05 POC Glucose 440 H* 437 H* Imaging Radiology Impressions: ITS Impressions Hand X-Ray 03/02/22 11:27 IMPRESSION: Mild to moderate soft tissue swelling without acute underlying osseous abnormality. Medications Medications Current Medications Acetaminophen (Acetaminophen 325 Mg Tablet) 650 mg PO Q6H PRN PRN Reason: Headache/Pain Mild Scale (1-3) Last Admin: 03/05/22 05:58 Dose: 650 mg Al Hydroxide/Mg Hydroxide (Magnesium Hydrox/Alum Hydrox 30 Ml Oral.Susp) 30 ml PO Q6H PRN PRN Reason: Heartburn/Nausea Atorvastatin Calcium (Atorvastatin Calcium 80 Mg Tablet) 80 mg PO DAILY [facility] Last Admin: 03/05/22 08:38 Dose: 80 mg Bupropion HCl (Bupropion Hcl Xl 150 Mg Tab.Er.24h) 150 mg PO DAILY [facility] Last Admin: 03/05/22 08:38 Dose: 150 mg Divalproex Sodium (Divalproex Sodium 500 Mg Tablet.) 500 mg PO DAILY [facility] Last Admin: 03/05/22 08:38 Dose: 500 mg Divalproex Sodium (Divalproex Sodium 500 Mg Tablet.) 1,000 mg PO BEDTIME [facility] Last Admin: 03/04/22 19:27 Dose: 1,000 mg Fenofibrate (Fenofibrate 54 Mg Tablet) 54 mg PO DAILY [facility] Last Admin: 03/05/22 08:39 Dose: 54 mg Fluticasone/Vilanterol (Fluticasone/Vilanterol 100/25 Blst.W.Dev) 1 puff INHALE RDAILY [facility] Last Admin: 03/05/22 08:41 Dose: 1 puff Gabapentin (Gabapentin 300 Mg Capsule) 300 mg PO BID [facility] Last Admin: 03/05/22 08:39 Dose: 300 mg Haloperidol (Haloperidol 5 Mg Tablet) 5 mg PO DAILY [facility] Last Admin: 03/05/22 08:39 Dose: 5 mg Haloperidol (Haloperidol 5 Mg Tablet) 10 mg PO BEDTIME [facility] Last Admin: 03/04/22 19:27 Dose: 10 mg Hydroxyzine HCl (Hydroxyzine Hcl 25 Mg Tablet) 25 mg PO Q6H PRN PRN Reason: Anxiety Last Admin: 03/04/22 00:23 Dose: 25 mg Insulin Glargine (Insulin Glargine,Hum.Rec.Anlog 100 Unit/Ml 10 Ml Vial) 120 unit SUBCUT BEDTIME [facility] Last Admin: 03/04/22 21:07 Dose: 120 unit Insulin Glargine (Insulin Glargine,Hum.Rec.Anlog 100 Unit/Ml 10 Ml Vial) 40 unit SUBCUT DAILY [facility] Last Admin: 03/05/22 08:41 Dose: 40 unit Insulin Human Lispro (Insulin Lispro 100 Unit/Ml 3 Ml Vial) 0 unit SUBCUT QIDACHS [facility]; Protocol Last Admin: 03/05/22 12:17 Dose: 35 unit Lamotrigine (Lamotrigine 25 Mg Tablet) 50 mg PO DAILY [facility] Last Admin: 03/05/22 08:38 Dose: 50 mg Magnesium Hydroxide (Milk Of Magnesia 30 Ml Oral.Susp) 30 ml PO DAILY PRN PRN Reason: Constipation Metformin HCl (Metformin Hcl Er 500 Mg Tab.Er.24h) 1,000 mg PO BID [facility] Last Admin: 03/05/22 08:38 Dose: 1,000 mg Nicotine Polacrilex (Nicotine Polacrilex 2 Mg Gum) 2 mg BUCCAL Q1H PRN PRN Reason: Nicotine Cravings Last Admin: 03/05/22 12:40 Dose: 2 mg Omeprazole (Omeprazole 20 Mg Capsule.Dr) 20 mg PO DAILY@0630 [facility] Last Admin: 03/05/22 08:38 Dose: 20 mg Paliperidone Palmitate (Paliperidone Palmitate 234 Mg/1.5 Ml Syringe) 234 mg IM Q30D [facility] Last Admin: 03/04/22 12:48 Dose: 234 mg Simethicone (Simethicone 80 Mg Tab.Chew) 80 mg PO QIDWMHS [facility] Last Admin: 03/05/22 12:17 Dose: 80 mg Allergies Allergies Allergy/AdvReac Type Severity Reaction Status Date / Time No Known Allergies Allergy Verified 07/07/21 13:26 [No Known Allergies*] Assessment & Plan Assessment & Plan (1) Schizoaffective disorder, bipolar type: Status: Acute Code(s): F25.0 - Schizoaffective disorder, bipolar type Assessment and Plan: 03/05/22- Continue current plan (2) Borderline personality disorder in adult: Status: Acute Code(s): F60.3 - Borderline personality disorder (3) Diabetes type 2, uncontrolled: Status: Acute Code(s): E11.65 - Type 2 diabetes mellitus with hyperglycemia Plan 21 year old male with persistent asthma, uncontrolled insulin-dependent type 2 diabetes, with BPD, MDD, and schizoeffective disorder admitted to psychiatry with hyperglycemia consulted on for management of diabetes. 1- Insulin-dependent type 2 diabetes- uncontrolled with hgb A1c of 13.6% -Continue lantus 120 units nightly. Ordered additional 40 units every morning (uses 160 units tresiba at home) -Increase humalog SSI by 2 units -Continue metformin BID -Continue POC glucose levels -Recommend changing diet to diabetic diet -Would likely benefit from Nutrition consult for diabetes education as well as outpatient diabetes education as patient does not seem to have good grasp of risk of complications with uncontrolled glucose levels. 2-Schizoaffective d/o/Borderline personality d/o -Plan per psychiatry I spent minutes with the patient and/or on the patient floor today, greater than?50% of which was spent counseling/coordinating care. Patient educated on: medication risk/benefits and therapeutic strategies Guardian/Caregiver educated on: therapeutic strategies Informed Consent: understands and further education needed Reason for contiued inpatient stay Substantial Risk for: harm to self, inability to function and rapid decompensation
[2022-03-05 16:14] VITALS: BP 103/53; PULSE 100; RESP 18; TEMP 36.4; O2SAT 96
[2022-03-05 17:29] LABS: Glucose, Whole Blood 367 mg/dL (60-115)
[2022-03-05] MEDS: Divalproex Sodium 500 MG TABLET.DR 1000 MG PO (21:04)
[2022-03-05] MEDS: HaloperidoL 5 MG TABLET 10 MG PO (21:05)
[2022-03-05] MEDS: Insulin Glargine,Hum.rec.anlog 100 UNIT/ML 10 ML VIAL 120 UNIT SUBCUT (21:07)
[2022-03-05 21:17] LABS: Glucose, Whole Blood 322 mg/dL (60-115)
[2022-03-06 06:00] VITALS: BP 111/76; PULSE 98; RESP 18; TEMP 36.4; O2SAT 97
[2022-03-06] MEDS: Nicotine Polacrilex 2 MG GUM BUCCAL ×3 (06:23→11:23)
[2022-03-06 06:30] LABS: Glucose, Whole Blood 299 mg/dL (60-115)
[2022-03-06] MEDS: buPROPion HCl XL 150 MG TAB.ER.24H PO (08:21)
[2022-03-06] MEDS: Simethicone 80 MG TAB.CHEW PO ×2 (08:21→21:06)
[2022-03-06] MEDS: Divalproex Sodium 500 MG TABLET.DR PO (08:21)
[2022-03-06] MEDS: metFORMIN HCl ER 500 MG TAB.ER.24H 1000 MG PO ×2 (08:21→21:07)
[2022-03-06] MEDS: Atorvastatin Calcium 80 MG TABLET PO (08:21)
[2022-03-06] MEDS: Gabapentin 300 MG CAPSULE PO ×2 (08:22→21:06)
[2022-03-06] MEDS: Fenofibrate 54 MG TABLET PO (08:22)
[2022-03-06] MEDS: HaloperidoL 5 MG TABLET PO (08:22)
[2022-03-06] MEDS: lamoTRIgine 25 MG TABLET 50 MG PO (08:22)
[2022-03-06] MEDS: Omeprazole 20 MG CAPSULE.DR PO (08:22)
[2022-03-06] MEDS: Insulin Glargine,Hum.rec.anlog 100 UNIT/ML 10 ML VIAL 40 UNIT SUBCUT (08:25)
[2022-03-06] MEDS: Insulin Lispro 100 UNIT/ML 3 ML VIAL SUBCUT ×4 (08:27→21:10)
[2022-03-06 12:43] LABS: Glucose, Whole Blood 416 mg/dL (60-115)
[2022-03-06 17:38] LABS: Glucose, Whole Blood 275 mg/dL (60-115)
[2022-03-06 19:20] VITALS: BP 113/58; PULSE 76; TEMP 36.6
--- NOTE | 2022-03-06 20:23 | HO.PSYCHPN ---
Subjective Subjective Date of Service: 03/06/22 Reason For Visit: SI, Psychosis Interim History: pt founds reasting in bed, easily rousable. asking for discharge, labile when frustrated. states he is only here for HI and that that has resolved. asking for ativan for anxiety. ends interview suddenly in irritation, saying, i don't want to talk to you, lying back down in bed, pulling the covers over his body, and turning away from MD. per staff, threatening HI toward mother and sister. labile, frequent behavioral dyscontrol. eating, taking meds. FSBS elevated. sleeping well. Mental Status Exam Mental Status Exam Narrative: appropriately dressed and groomed. no PMA/PMR, variably cooperative. speech nml incr rate, amount, loudness. nml tone, decr latency. thoughts linear and illogical. affect constricted, hyper-intense, mod-labile. mood not assessed. no SI/AVH expressed. denies HI. Diagnostics Vital Signs (24Hr): Vital Signs - 24 hr 03/06/22 06:00 Temperature 97.6 F Pulse Rate 98 Respiratory Rate 18 Blood Pressure 111/76 Pulse Oximetry 97 BMI result Body Mass Index 46.3 Labs Results: 02/24/22 19:50 02/27/22 07:30 Labs: Laboratory Results - last 48 hr 03/05/22 03/05/22 03/05/22 04:40 08:13 12:05 POC Glucose 342 H 440 H* 437 H* 03/05/22 03/05/22 03/06/22 17:15 20:48 06:26 POC Glucose 367 H* 322 H 299 H 03/06/22 03/06/22 12:39 17:06 POC Glucose 416 H* 275 H Imaging Radiology Impressions: ITS Impressions Hand X-Ray 03/02/22 11:27 IMPRESSION: Mild to moderate soft tissue swelling without acute underlying osseous abnormality. Medications Medications Current Medications Acetaminophen (Acetaminophen 325 Mg Tablet) 650 mg PO Q6H PRN PRN Reason: Headache/Pain Mild Scale (1-3) Last Admin: 03/05/22 05:58 Dose: 650 mg Al Hydroxide/Mg Hydroxide (Magnesium Hydrox/Alum Hydrox 30 Ml Oral.Susp) 30 ml PO Q6H PRN PRN Reason: Heartburn/Nausea Atorvastatin Calcium (Atorvastatin Calcium 80 Mg Tablet) 80 mg PO DAILY [facility] Last Admin: 03/06/22 08:21 Dose: 80 mg Bupropion HCl (Bupropion Hcl Xl 150 Mg Tab.Er.24h) 150 mg PO DAILY [facility] Last Admin: 03/06/22 08:21 Dose: 150 mg Divalproex Sodium (Divalproex Sodium 500 Mg Tablet.) 500 mg PO DAILY [facility] Last Admin: 03/06/22 08:21 Dose: 500 mg Divalproex Sodium (Divalproex Sodium 500 Mg Tablet.) 1,000 mg PO BEDTIME [facility] Last Admin: 03/05/22 21:04 Dose: 1,000 mg Fenofibrate (Fenofibrate 54 Mg Tablet) 54 mg PO DAILY [facility] Last Admin: 03/06/22 08:22 Dose: 54 mg Fluticasone/Vilanterol (Fluticasone/Vilanterol 100/25 Blst.W.Dev) 1 puff INHALE RDAILY [facility] Last Admin: 03/05/22 08:41 Dose: 1 puff Gabapentin (Gabapentin 300 Mg Capsule) 300 mg PO BID [facility] Last Admin: 03/06/22 08:22 Dose: 300 mg Haloperidol (Haloperidol 5 Mg Tablet) 5 mg PO DAILY [facility] Last Admin: 03/06/22 08:22 Dose: 5 mg Haloperidol (Haloperidol 5 Mg Tablet) 10 mg PO BEDTIME [facility] Last Admin: 03/05/22 21:05 Dose: 10 mg Hydroxyzine HCl (Hydroxyzine Hcl 25 Mg Tablet) 25 mg PO Q6H PRN PRN Reason: Anxiety Last Admin: 03/04/22 00:23 Dose: 25 mg Insulin Glargine (Insulin Glargine,Hum.Rec.Anlog 100 Unit/Ml 10 Ml Vial) 120 unit SUBCUT BEDTIME [facility] Last Admin: 03/05/22 21:07 Dose: 120 unit Insulin Glargine (Insulin Glargine,Hum.Rec.Anlog 100 Unit/Ml 10 Ml Vial) 40 unit SUBCUT DAILY [facility] Last Admin: 03/06/22 08:25 Dose: 40 unit Insulin Human Lispro (Insulin Lispro 100 Unit/Ml 3 Ml Vial) 0 unit SUBCUT QIDACHS [facility]; Protocol Last Admin: 03/06/22 17:29 Dose: 25 unit Lamotrigine (Lamotrigine 25 Mg Tablet) 50 mg PO DAILY [facility] Last Admin: 03/06/22 08:22 Dose: 50 mg Magnesium Hydroxide (Milk Of Magnesia 30 Ml Oral.Susp) 30 ml PO DAILY PRN PRN Reason: Constipation Metformin HCl (Metformin Hcl Er 500 Mg Tab.Er.24h) 1,000 mg PO BID [facility] Last Admin: 03/06/22 08:21 Dose: 1,000 mg Nicotine Polacrilex (Nicotine Polacrilex 2 Mg Gum) 2 mg BUCCAL Q1H PRN PRN Reason: Nicotine Cravings Last Admin: 03/06/22 11:23 Dose: 2 mg Omeprazole (Omeprazole 20 Mg Capsule.Dr) 20 mg PO DAILY@0630 [facility] Last Admin: 03/06/22 08:22 Dose: 20 mg Paliperidone Palmitate (Paliperidone Palmitate 234 Mg/1.5 Ml Syringe) 234 mg IM Q30D [facility] Last Admin: 03/04/22 12:48 Dose: 234 mg Simethicone (Simethicone 80 Mg Tab.Chew) 80 mg PO QIDWMHS [facility] Last Admin: 03/06/22 19:30 Dose: Not Given Allergies Allergies Allergy/AdvReac Type Severity Reaction Status Date / Time No Known Allergies Allergy Verified 07/07/21 13:26 [No Known Allergies*] Assessment & Plan Assessment & Plan (1) Schizoaffective disorder, bipolar type: Status: Acute Code(s): F25.0 - Schizoaffective disorder, bipolar type Assessment and Plan: 03/05/22- Continue current plan 03/06: continue current mgmt. (2) Borderline personality disorder in adult: Status: Acute Code(s): F60.3 - Borderline personality disorder (3) Diabetes type 2, uncontrolled: Status: Acute Code(s): E11.65 - Type 2 diabetes mellitus with hyperglycemia Plan 21 year old male with persistent asthma, uncontrolled insulin-dependent type 2 diabetes, with BPD, MDD, and schizoeffective disorder admitted to psychiatry with hyperglycemia consulted on for management of diabetes. 1- Insulin-dependent type 2 diabetes- uncontrolled with hgb A1c of 13.6% -Continue lantus 120 units nightly. Ordered additional 40 units every morning (uses 160 units tresiba at home) -Increase humalog SSI by 2 units -Continue metformin BID -Continue POC glucose levels -Recommend changing diet to diabetic diet -Would likely benefit from Nutrition consult for diabetes education as well as outpatient diabetes education as patient does not seem to have good grasp of risk of complications with uncontrolled glucose levels. 2-Schizoaffective d/o/Borderline personality d/o -Plan per psychiatry I spent ___15___ minutes with the patient and/or on the patient floor today, greater than?50% of which was spent counseling/coordinating care. Reason for contiued inpatient stay Substantial Risk for: harm to self, harm to others, inability to function and rapid decompensation
[2022-03-06 20:41] LABS: Glucose, Whole Blood 327 mg/dL (60-115)
[2022-03-06] MEDS: HaloperidoL 5 MG TABLET 10 MG PO (21:05)
[2022-03-06] MEDS: Divalproex Sodium 500 MG TABLET.DR 1000 MG PO (21:06)
[2022-03-06] MEDS: Insulin Glargine,Hum.rec.anlog 100 UNIT/ML 10 ML VIAL 120 UNIT SUBCUT (21:08)
[2022-03-07] MEDS: Nicotine Polacrilex 2 MG GUM BUCCAL ×6 (03:55→16:54)
[2022-03-07 06:00] VITALS: BP 114/78; PULSE 94; RESP 18; TEMP 36.3; O2SAT 97
[2022-03-07 06:18] LABS: Glucose, Whole Blood 395 mg/dL (60-115)
[2022-03-07 08:00] LABS: Creatinine Clr Calc Pharmacy 175.9; Estimated Glomerular Filt Rate > 60
[2022-03-07] MEDS: metFORMIN HCl ER 500 MG TAB.ER.24H 1000 MG PO ×2 (08:26→21:08)
[2022-03-07] MEDS: Atorvastatin Calcium 80 MG TABLET PO (08:27)
[2022-03-07] MEDS: Divalproex Sodium 500 MG TABLET.DR PO (08:27)
[2022-03-07] MEDS: HaloperidoL 5 MG TABLET PO (08:27)
[2022-03-07] MEDS: Omeprazole 20 MG CAPSULE.DR PO (08:27)
[2022-03-07] MEDS: buPROPion HCl XL 150 MG TAB.ER.24H PO (08:27)
[2022-03-07] MEDS: Fenofibrate 54 MG TABLET PO (08:27)
[2022-03-07] MEDS: Gabapentin 300 MG CAPSULE PO ×2 (08:27→21:07)
[2022-03-07] MEDS: lamoTRIgine 25 MG TABLET 50 MG PO (08:27)
[2022-03-07] MEDS: Insulin Glargine,Hum.rec.anlog 100 UNIT/ML 10 ML VIAL 40 UNIT SUBCUT (08:31)
[2022-03-07] MEDS: Insulin Lispro 100 UNIT/ML 3 ML VIAL SUBCUT ×4 (08:31→21:35)
[2022-03-07 12:11] LABS: Glucose, Whole Blood 439 mg/dL (60-115)
[2022-03-07] MEDS: Simethicone 80 MG TAB.CHEW PO ×2 (12:16→21:10)
--- NOTE | 2022-03-07 12:28 | PC.NURSE ---
dr. akhtar notified of bs of 439. no new orders just sliding scale.
[2022-03-07] MEDS: Acetaminophen 325 MG TABLET 650 MG PO (15:59)
[2022-03-07] MEDS: LORazepam 1 MG TABLET PO (15:59)
[2022-03-07 16:05] VITALS: BP 128/58; PULSE 107; TEMP 35.8; O2SAT 97
--- NOTE | 2022-03-07 16:39 | P.PNPSI_ITS ---
Subjective Subjective Date of Service: 03/07/22 Reason For Visit: SI, Psychosis Interim History: calm, cooperative. non-labile. asking for ativan, records reviewed. pt did have PRN ativan at last admission, which he found very helpful. re-ordered 1 BID PRN for the current admission as well. pt grateful. no other questions or requests. says hydroxyzine not helpful. per staff, wants discharge. calm today. eating, taking meds. wants to get to respite. Mental Status Exam Mental Status Exam Narrative: appropriately dressed and groomed. no PMA/PMR, cooperative. speech nml rate, amount, loudness. nml tone, latency. thoughts linear and logical. affect constricted, normo-intense, non-labile. mood not assessed. no SI/HI/AVH expressed. Diagnostics Vital Signs (24Hr): Vital Signs - 24 hr 03/06/22 19:20 03/07/22 06:00 Temperature 97.9 F 97.4 F Pulse Rate 76 94 Respiratory Rate 18 Blood Pressure 113/58 L 114/78 Pulse Oximetry 97 BMI result Body Mass Index 46.3 Labs Results: 02/24/22 19:50 03/07/22 07:26 Labs: Laboratory Results - last 48 hr 03/05/22 03/05/22 03/06/22 17:15 20:48 06:26 Creatinine Estim Creat Clear Calc Estimated GFR POC Glucose 367 H* 322 H 299 H 03/06/22 03/06/22 03/06/22 12:39 17:06 20:30 Creatinine Estim Creat Clear Calc Estimated GFR POC Glucose 416 H* 275 H 327 H 03/07/22 03/07/22 03/07/22 06:13 07:26 12:07 Creatinine 0.97 Estim Creat Clear Calc 175.9 Estimated GFR > 60 POC Glucose 395 H* 439 H* Imaging Radiology Impressions: ITS Impressions Hand X-Ray 03/02/22 11:27 IMPRESSION: Mild to moderate soft tissue swelling without acute underlying osseous abnormality. Medications Medications Current Medications Acetaminophen (Acetaminophen 325 Mg Tablet) 650 mg PO Q6H PRN PRN Reason: Headache/Pain Mild Scale (1-3) Last Admin: 03/07/22 15:59 Dose: 650 mg Al Hydroxide/Mg Hydroxide (Magnesium Hydrox/Alum Hydrox 30 Ml Oral.Susp) 30 ml PO Q6H PRN PRN Reason: Heartburn/Nausea Atorvastatin Calcium (Atorvastatin Calcium 80 Mg Tablet) 80 mg PO DAILY [facility] Last Admin: 03/07/22 08:27 Dose: 80 mg Bupropion HCl (Bupropion Hcl Xl 150 Mg Tab.Er.24h) 150 mg PO DAILY [facility] Last Admin: 03/07/22 08:27 Dose: 150 mg Divalproex Sodium (Divalproex Sodium 500 Mg Tablet.) 500 mg PO DAILY [facility] Last Admin: 03/07/22 08:27 Dose: 500 mg Divalproex Sodium (Divalproex Sodium 500 Mg Tablet.) 1,000 mg PO BEDTIME [facility] Last Admin: 03/06/22 21:06 Dose: 1,000 mg Fenofibrate (Fenofibrate 54 Mg Tablet) 54 mg PO DAILY [facility] Last Admin: 03/07/22 08:27 Dose: 54 mg Fluticasone/Vilanterol (Fluticasone/Vilanterol 100/25 Blst.W.Dev) 1 puff INHALE RDAILY [facility] Last Admin: 03/07/22 09:58 Dose: Not Given Gabapentin (Gabapentin 300 Mg Capsule) 300 mg PO BID [facility] Last Admin: 03/07/22 08:27 Dose: 300 mg Haloperidol (Haloperidol 5 Mg Tablet) 5 mg PO DAILY [facility] Last Admin: 03/07/22 08:27 Dose: 5 mg Haloperidol (Haloperidol 5 Mg Tablet) 10 mg PO BEDTIME [facility] Last Admin: 03/06/22 21:05 Dose: 10 mg Hydroxyzine HCl (Hydroxyzine Hcl 50 Mg Tablet) 50 mg PO Q6H PRN PRN Reason: Anxiety Insulin Glargine (Insulin Glargine,Hum.Rec.Anlog 100 Unit/Ml 10 Ml Vial) 120 unit SUBCUT BEDTIME [facility] Last Admin: 03/06/22 21:08 Dose: 120 unit Insulin Glargine (Insulin Glargine,Hum.Rec.Anlog 100 Unit/Ml 10 Ml Vial) 40 unit SUBCUT DAILY [facility] Last Admin: 03/07/22 08:31 Dose: 40 unit Insulin Human Lispro (Insulin Lispro 100 Unit/Ml 3 Ml Vial) 0 unit SUBCUT QIDACHS [facility]; Protocol Last Admin: 03/07/22 12:17 Dose: 35 unit Lamotrigine (Lamotrigine 25 Mg Tablet) 50 mg PO DAILY [facility] Last Admin: 03/07/22 08:27 Dose: 50 mg Lorazepam (Lorazepam 1 Mg Tablet) 1 mg PO BID PRN PRN Reason: agitation Last Admin: 03/07/22 15:59 Dose: 1 mg Magnesium Hydroxide (Milk Of Magnesia 30 Ml Oral.Susp) 30 ml PO DAILY PRN PRN Reason: Constipation Metformin HCl (Metformin Hcl Er 500 Mg Tab.Er.24h) 1,000 mg PO BID [facility] Last Admin: 03/07/22 08:26 Dose: 1,000 mg Nicotine Polacrilex (Nicotine Polacrilex 2 Mg Gum) 2 mg BUCCAL Q1H PRN PRN Reason: Nicotine Cravings Last Admin: 03/07/22 12:17 Dose: 2 mg Omeprazole (Omeprazole 20 Mg Capsule.Dr) 20 mg PO DAILY@0630 [facility] Last Admin: 03/07/22 08:27 Dose: 20 mg Paliperidone Palmitate (Paliperidone Palmitate 234 Mg/1.5 Ml Syringe) 234 mg IM Q30D [facility] Last Admin: 03/04/22 12:48 Dose: 234 mg Simethicone (Simethicone 80 Mg Tab.Chew) 80 mg PO QIDWMHS [facility] Last Admin: 03/07/22 12:16 Dose: 80 mg Allergies Allergies Allergy/AdvReac Type Severity Reaction Status Date / Time No Known Allergies Allergy Verified 07/07/21 13:26 [No Known Allergies*] Assessment & Plan Assessment & Plan (1) Schizoaffective disorder, bipolar type: Status: Acute Code(s): F25.0 - Schizoaffective disorder, bipolar type Assessment and Plan: 03/05/22- Continue current plan 03/06: continue current mgmt. 03/07: add ativan 1 BID PRN. otherwise continue current mgmt. (2) Borderline personality disorder in adult: Status: Acute Code(s): F60.3 - Borderline personality disorder (3) Diabetes type 2, uncontrolled: Status: Acute Code(s): E11.65 - Type 2 diabetes mellitus with hyperglycemia Plan 21 year old male with persistent asthma, uncontrolled insulin-dependent type 2 diabetes, with BPD, MDD, and schizoeffective disorder admitted to psychiatry with hyperglycemia consulted on for management of diabetes. 1- Insulin-dependent type 2 diabetes- uncontrolled with hgb A1c of 13.6% -Continue lantus 120 units nightly. Ordered additional 40 units every morning (uses 160 units tresiba at home) -Increase humalog SSI by 2 units -Continue metformin BID -Continue POC glucose levels -Recommend changing diet to diabetic diet -Would likely benefit from Nutrition consult for diabetes education as well as outpatient diabetes education as patient does not seem to have good grasp of risk of complications with uncontrolled glucose levels. 2-Schizoaffective d/o/Borderline personality d/o -Plan per psychiatry I spent ___15___ minutes with the patient and/or on the patient floor today, greater than?50% of which was spent counseling/coordinating care. Reason for contiued inpatient stay Substantial Risk for: harm to others, inability to function and rapid decompensation
[2022-03-07 17:33] LABS: Glucose, Whole Blood 254 mg/dL (60-115)
[2022-03-07] MEDS: HaloperidoL 5 MG TABLET 10 MG PO (21:08)
[2022-03-07] MEDS: Divalproex Sodium 500 MG TABLET.DR 1000 MG PO (21:08)
[2022-03-07 21:29] LABS: Glucose, Whole Blood 341 mg/dL (60-115)
[2022-03-07] MEDS: Insulin Glargine,Hum.rec.anlog 100 UNIT/ML 10 ML VIAL 120 UNIT SUBCUT (21:37)
[2022-03-08 06:00] VITALS: BP 124/62; PULSE 102; RESP 18; TEMP 36.4; O2SAT 97
[2022-03-08 07:55] LABS: Glucose, Whole Blood 330 mg/dL (60-115)
[2022-03-08] MEDS: Insulin Lispro 100 UNIT/ML 3 ML VIAL SUBCUT ×4 (08:21→21:27)
[2022-03-08] MEDS: Insulin Glargine,Hum.rec.anlog 100 UNIT/ML 10 ML VIAL 40 UNIT SUBCUT (08:22)
[2022-03-08] MEDS: Omeprazole 20 MG CAPSULE.DR PO (08:24)
[2022-03-08] MEDS: HaloperidoL 5 MG TABLET PO (08:24)
[2022-03-08] MEDS: buPROPion HCl XL 150 MG TAB.ER.24H PO (08:24)
[2022-03-08] MEDS: Divalproex Sodium 500 MG TABLET.DR PO (08:24)
[2022-03-08] MEDS: lamoTRIgine 25 MG TABLET 50 MG PO (08:24)
[2022-03-08] MEDS: metFORMIN HCl ER 500 MG TAB.ER.24H 1000 MG PO ×2 (08:24→21:19)
[2022-03-08] MEDS: Atorvastatin Calcium 80 MG TABLET PO (08:25)
[2022-03-08] MEDS: Simethicone 80 MG TAB.CHEW PO ×2 (08:25→12:34)
[2022-03-08] MEDS: Gabapentin 300 MG CAPSULE PO ×2 (08:25→21:23)
[2022-03-08] MEDS: Fenofibrate 54 MG TABLET PO (08:25)
[2022-03-08] MEDS: Fluticasone/Vilanterol 100/25 BLST.W.DEV 1 PUFF INHALE (08:38)
[2022-03-08] MEDS: Nicotine Polacrilex 2 MG GUM BUCCAL ×2 (11:37→12:38)
[2022-03-08 12:40] LABS: Glucose, Whole Blood 388 mg/dL (60-115)
--- NOTE | 2022-03-08 14:06 | HO.PSYCHPN ---
Subjective Subjective Date of Service: 03/08/22 Reason For Visit: SI, Psychosis Interim History: slept OK, more emotionally calm, awaiting word on respite. per staff, POC continues over 300. more redirectable. slept well. Mental Status Exam Mental Status Exam Narrative: appropriately dressed and groomed. no PMA/PMR, cooperative. speech nml rate, amount, loudness. nml tone, latency. thoughts linear and logical. affect constricted, normo-intense, non-labile. mood more calm. no SI/HI/AVH expressed. Diagnostics Vital Signs (24Hr): Vital Signs - 24 hr 03/07/22 16:05 03/08/22 06:00 Temperature 96.4 F L 97.6 F Pulse Rate 107 H 102 H Respiratory Rate 18 Blood Pressure 128/58 L 124/62 Pulse Oximetry 97 97 Oxygen Delivery Method Room Air BMI result Body Mass Index 46.3 Labs Results: 02/24/22 19:50 03/07/22 07:26 Labs: Laboratory Results - last 48 hr 03/06/22 03/06/22 03/07/22 17:06 20:30 06:13 Creatinine Estim Creat Clear Calc Estimated GFR POC Glucose 275 H 327 H 395 H* 03/07/22 03/07/22 03/07/22 07:26 12:07 17:18 Creatinine 0.97 Estim Creat Clear Calc 175.9 Estimated GFR > 60 POC Glucose 439 H* 254 H 03/07/22 03/08/22 03/08/22 21:06 07:49 12:26 Creatinine Estim Creat Clear Calc Estimated GFR POC Glucose 341 H 330 H 388 H* Imaging Radiology Impressions: ITS Impressions Hand X-Ray 03/02/22 11:27 IMPRESSION: Mild to moderate soft tissue swelling without acute underlying osseous abnormality. Medications Medications Current Medications Acetaminophen (Acetaminophen 325 Mg Tablet) 650 mg PO Q6H PRN PRN Reason: Headache/Pain Mild Scale (1-3) Last Admin: 03/07/22 15:59 Dose: 650 mg Al Hydroxide/Mg Hydroxide (Magnesium Hydrox/Alum Hydrox 30 Ml Oral.Susp) 30 ml PO Q6H PRN PRN Reason: Heartburn/Nausea Atorvastatin Calcium (Atorvastatin Calcium 80 Mg Tablet) 80 mg PO DAILY [facility] Last Admin: 03/08/22 08:25 Dose: 80 mg Bupropion HCl (Bupropion Hcl Xl 150 Mg Tab.Er.24h) 150 mg PO DAILY [facility] Last Admin: 03/08/22 08:24 Dose: 150 mg Divalproex Sodium (Divalproex Sodium 500 Mg Tablet.) 500 mg PO DAILY [facility] Last Admin: 03/08/22 08:24 Dose: 500 mg Divalproex Sodium (Divalproex Sodium 500 Mg Tablet.) 1,000 mg PO BEDTIME [facility] Last Admin: 03/07/22 21:08 Dose: 1,000 mg Fenofibrate (Fenofibrate 54 Mg Tablet) 54 mg PO DAILY [facility] Last Admin: 03/08/22 08:25 Dose: 54 mg Fluticasone/Vilanterol (Fluticasone/Vilanterol 100/25 Blst.W.Dev) 1 puff INHALE RDAILY [facility] Last Admin: 03/08/22 08:38 Dose: 1 puff Gabapentin (Gabapentin 300 Mg Capsule) 300 mg PO BID [facility] Last Admin: 03/08/22 08:25 Dose: 300 mg Haloperidol (Haloperidol 5 Mg Tablet) 5 mg PO DAILY [facility] Last Admin: 03/08/22 08:24 Dose: 5 mg Haloperidol (Haloperidol 5 Mg Tablet) 10 mg PO BEDTIME [facility] Last Admin: 03/07/22 21:08 Dose: 10 mg Hydroxyzine HCl (Hydroxyzine Hcl 50 Mg Tablet) 50 mg PO Q6H PRN PRN Reason: Anxiety Insulin Glargine (Insulin Glargine,Hum.Rec.Anlog 100 Unit/Ml 10 Ml Vial) 120 unit SUBCUT BEDTIME [facility] Last Admin: 03/07/22 21:37 Dose: 120 unit Insulin Glargine (Insulin Glargine,Hum.Rec.Anlog 100 Unit/Ml 10 Ml Vial) 40 unit SUBCUT DAILY [facility] Last Admin: 03/08/22 08:22 Dose: 40 unit Insulin Human Lispro (Insulin Lispro 100 Unit/Ml 3 Ml Vial) 0 unit SUBCUT QIDACHS [facility]; Protocol Last Admin: 03/08/22 12:34 Dose: 35 unit Lamotrigine (Lamotrigine 25 Mg Tablet) 50 mg PO DAILY [facility] Last Admin: 03/08/22 08:24 Dose: 50 mg Lorazepam (Lorazepam 1 Mg Tablet) 1 mg PO BID PRN PRN Reason: agitation Last Admin: 03/07/22 15:59 Dose: 1 mg Magnesium Hydroxide (Milk Of Magnesia 30 Ml Oral.Susp) 30 ml PO DAILY PRN PRN Reason: Constipation Metformin HCl (Metformin Hcl Er 500 Mg Tab.Er.24h) 1,000 mg PO BID [facility] Last Admin: 03/08/22 08:24 Dose: 1,000 mg Nicotine Polacrilex (Nicotine Polacrilex 2 Mg Gum) 2 mg BUCCAL Q1H PRN PRN Reason: Nicotine Cravings Last Admin: 03/08/22 12:38 Dose: 2 mg Omeprazole (Omeprazole 20 Mg Capsule.Dr) 20 mg PO DAILY@0630 [facility] Last Admin: 03/08/22 08:24 Dose: 20 mg Paliperidone Palmitate (Paliperidone Palmitate 234 Mg/1.5 Ml Syringe) 234 mg IM Q30D [facility] Last Admin: 03/04/22 12:48 Dose: 234 mg Simethicone (Simethicone 80 Mg Tab.Chew) 80 mg PO QIDWMHS [facility] Last Admin: 03/08/22 12:34 Dose: 80 mg Allergies Allergies Allergy/AdvReac Type Severity Reaction Status Date / Time No Known Allergies Allergy Verified 07/07/21 13:26 [No Known Allergies*] Assessment & Plan Assessment & Plan (1) Schizoaffective disorder, bipolar type: Status: Acute Code(s): F25.0 - Schizoaffective disorder, bipolar type Assessment and Plan: 03/05/22- Continue current plan 03/06: continue current mgmt. 9/4: add ativan 1 BID PRN. otherwise continue current mgmt. /: continue current mgmt. awaiting word on respite, hoping for discharge KIYA. (2) Borderline personality disorder in adult: Status: Acute Code(s): F60.3 - Borderline personality disorder (3) Diabetes type 2, uncontrolled: Status: Acute Code(s): E11.65 - Type 2 diabetes mellitus with hyperglycemia Plan 21 year old male with persistent asthma, uncontrolled insulin-dependent type 2 diabetes, with BPD, MDD, and schizoeffective disorder admitted to psychiatry with hyperglycemia consulted on for management of diabetes. 1- Insulin-dependent type 2 diabetes- uncontrolled with hgb A1c of 13.6% -Continue lantus 120 units nightly. Ordered additional 40 units every morning (uses 160 units tresiba at home) -Increase humalog SSI by 2 units -Continue metformin BID -Continue POC glucose levels -Recommend changing diet to diabetic diet -Would likely benefit from Nutrition consult for diabetes education as well as outpatient diabetes education as patient does not seem to have good grasp of risk of complications with uncontrolled glucose levels. 2-Schizoaffective d/o/Borderline personality d/o -Plan per psychiatry I spent __15____ minutes with the patient and/or on the patient floor today, greater than?50% of which was spent counseling/coordinating care. Reason for contiued inpatient stay Substantial Risk for: inability to function
[2022-03-08 18:06] LABS: Glucose, Whole Blood 365 mg/dL (60-115)
--- NOTE | 2022-03-08 19:23 | PC.ADMIT ---
Pt had a POC BS of 365 at 17:24; rcvd Humalog 35 units SC at 17:40. Pt refused reassessment at 1920. Dr. Villanueva was informed and had no additional insulin orders; pt has requested reassessment at 20:30 at his HS.
[2022-03-08 20:50] VITALS: BP 121/63; PULSE 112; TEMP 35.6
[2022-03-08 20:58] LABS: Glucose, Whole Blood 339 mg/dL (60-115)
[2022-03-08] MEDS: Divalproex Sodium 500 MG TABLET.DR 1000 MG PO (21:22)
[2022-03-08] MEDS: Insulin Glargine,Hum.rec.anlog 100 UNIT/ML 10 ML VIAL 120 UNIT SUBCUT (21:23)
[2022-03-08] MEDS: HaloperidoL 5 MG TABLET 10 MG PO (21:23)
[2022-03-09 06:09] LABS: Glucose, Whole Blood 196 mg/dL (60-115)
[2022-03-09 06:40] VITALS: BP 138/83; PULSE 99; TEMP 36.1; O2SAT 99
[2022-03-09] MEDS: Nicotine Polacrilex 2 MG GUM BUCCAL ×3 (06:45→12:10)
[2022-03-09] MEDS: Insulin Lispro 100 UNIT/ML 3 ML VIAL SUBCUT (08:17)
[2022-03-09] MEDS: Insulin Glargine,Hum.rec.anlog 100 UNIT/ML 10 ML VIAL 40 UNIT SUBCUT (08:18)
[2022-03-09] MEDS: metFORMIN HCl ER 500 MG TAB.ER.24H 1000 MG PO (08:18)
[2022-03-09] MEDS: Fenofibrate 54 MG TABLET PO (08:18)
[2022-03-09] MEDS: Atorvastatin Calcium 80 MG TABLET PO (08:18)
[2022-03-09] MEDS: buPROPion HCl XL 150 MG TAB.ER.24H PO (08:18)
[2022-03-09] MEDS: Gabapentin 300 MG CAPSULE PO (08:18)
[2022-03-09] MEDS: Omeprazole 20 MG CAPSULE.DR PO (08:18)
[2022-03-09] MEDS: HaloperidoL 5 MG TABLET PO (08:18)
[2022-03-09] MEDS: lamoTRIgine 25 MG TABLET 50 MG PO (08:19)
[2022-03-09] MEDS: Fluticasone/Vilanterol 100/25 BLST.W.DEV 1 PUFF INHALE (08:19)
[2022-03-09] MEDS: Divalproex Sodium 500 MG TABLET.DR PO (08:19)
--- NOTE | 2022-03-09 08:54 | PC.NURSE ---
Williams signed a Three Day Notice today. It will be up on Tuesday03/12/22.
--- NOTE | 2022-03-09 18:07 | PM.PSYDC ---
DS: Providers Provider Date of Service: 03/09/22 Date of admission: 02/25/22 00:12 Date of discharge: 03/09/22 Primary care physician: Gricel Daniel MD Admitting clinician: Angela Lombardi Attending physician on admission: Jeffrey Zamora Consults: 03/04/22 09:08 Consult to Hospitalist Routine Consulting Provider: Hospitalist Reason For Exam: Hyperglycemia (last night >600) Attending physician on discharge: Jeffrey Zamora Discharging clinician: Angela Lombardi DS: Diagnosis Discharge Diagnosis (1) Schizoaffective disorder, bipolar type: Status: Acute (2) Borderline personality disorder in adult: Status: Acute (3) Diabetes type 2, uncontrolled: Status: Acute DS: Medications Discharge Medications Home Medications: Home Medications Medication Instructions Recorded Confirmed budesonide-formoterol HFA 80 2 puff PO BID 02/24/22 02/24/22 mcg-4.5 mcg/actuation aerosol inhaler (Symbicort) bupropion HCl 150 mg 24 hr tablet, 1 tab PO DAILY 02/24/22 02/24/22 extended release divalproex 500 mg tablet,delayed 1 tab PO QAM 02/24/22 02/24/22 release dulaglutide 0.75 mg/0.5 mL 0.75 mg subcut QWEEK 02/24/22 02/24/22 subcutaneous pen injector (Trulicity) fenofibrate micronized 43 mg 1 cap PO DAILY 02/24/22 02/24/22 capsule insulin degludec 200 unit/mL (3 160 unit subcut DAILY 02/24/22 02/24/22 mL) subcutaneous pen (Tresiba FlexTouch U-200 insulin) insulin lispro 100 unit/mL 0 - 100 unit subcut DAILY 02/24/22 02/24/22 subcutaneous pen (Humalog KwikPen (U-100) Insulin) metformin 500 mg tablet,extended 2 tab PO BID 02/24/22 02/24/22 release 24 hr omeprazole 20 mg capsule,delayed 1 cap PO DAILY 02/24/22 02/24/22 release rosuvastatin 20 mg tablet 1 tab PO DAILY 02/24/22 02/24/22 Previous Rx's Medication Instructions Recorded divalproex 500 mg tablet,delayed 1,000 mg PO BEDTIME #90 tabs 03/09/22 release gabapentin 300 mg capsule 1 cap PO BID #60 caps 03/09/22 haloperidol 5 mg tablet 1 tab PO QAM #30 tabs 03/09/22 haloperidol 5 mg tablet 10 mg PO BEDTIME #60 tabs 03/09/22 lamotrigine 25 mg tablet 50 mg PO DAILY 30 days #60 tabs 03/09/22 lorazepam 1 mg tablet 1 tab PO BID PRN anxiety #30 tabs 03/09/22 paliperidone palmitate 234 mg/1.5 234 mg (1.5 mL) IM Q30D #0 mL 03/09/22 mL intramuscular syringe (Invega Sustenna) Mental Status Exam Mental Status Exam Patient Appearance: Appropriate Patient Orientation: Person, Place, Time and Situation Level of Consciousness: Alert Patient Behavior: Talkative, Distractible and Good Eye Contact Mood Description: Labile and Apprehensive Affect Description: Anxious and Apprehensive Patient Cognition Impaired: No Ability to Follow Directions: Fair Speech Pattern: Spontaneous Speech Memory Description: Episodic Impaired Hallucinations: None Delusions: Not Present Thought Process: Distracted and Goal Oriented Thought Content: positive for [place], positive for Circumstantial, positive for Goal Oriented and positive for Perseveration Depressive Symptoms: Changes in Appetite Abnormal Motor Activity Signs and Symptoms: Restlessness Judgement: Fair Data Data Completed and Pending Completed studies during hospitalization [Text1]: 03/02/22 03/03/22 03/03/22 20:48 07:54 09:52 Creatinine Estim Creat Clear Calc Estimated GFR POC Glucose 357 H* 572 H* 440 H* 03/03/22 03/03/22 03/03/22 11:56 17:35 21:21 Creatinine Estim Creat Clear Calc Estimated GFR POC Glucose 330 H 469 H* > 600 H* 03/03/22 03/04/22 03/04/22 22:08 00:11 08:09 Creatinine Estim Creat Clear Calc Estimated GFR POC Glucose 477 H* 263 H 370 H* 03/04/22 03/04/22 03/04/22 12:18 16:17 20:10 Creatinine Estim Creat Clear Calc Estimated GFR POC Glucose 497 H* 417 H* 353 H* 03/05/22 03/05/22 03/05/22 04:40 08:13 12:05 Creatinine Estim Creat Clear Calc Estimated GFR POC Glucose 342 H 440 H* 437 H* 03/05/22 03/05/22 03/06/22 17:15 20:48 06:26 Creatinine Estim Creat Clear Calc Estimated GFR POC Glucose 367 H* 322 H 299 H 03/06/22 03/06/22 03/06/22 12:39 17:06 20:30 Creatinine Estim Creat Clear Calc Estimated GFR POC Glucose 416 H* 275 H 327 H 03/07/22 03/07/22 03/07/22 06:13 07:26 12:07 Creatinine 0.97 Estim Creat Clear Calc 175.9 Estimated GFR > 60 POC Glucose 395 H* 439 H* 03/07/22 03/07/22 03/08/22 17:18 21:06 07:49 Creatinine Estim Creat Clear Calc Estimated GFR POC Glucose 254 H 341 H 330 H 03/08/22 03/08/22 03/08/22 12:26 17:24 20:47 Creatinine Estim Creat Clear Calc Estimated GFR POC Glucose 388 H* 365 H* 339 H 03/09/22 06:04 Creatinine Estim Creat Clear Calc Estimated GFR POC Glucose 196 H 02/24/22 19:02 Urine clean catch - Urine awad top Urine Culture - Final Imaging Diagnostic Imaging Impressions Hand X-Ray 03/02/22 11:27 IMPRESSION: Mild to moderate soft tissue swelling without acute underlying osseous abnormality. DS: Summary Hospital Course Hospital Course: Admission to adult psychiatry for behavioral exacerbation of symptoms of schizoaffective disorder, bipolar type, borderline personality disorder, diabetes, asthma. Pt's mother reports she is in the process of pursuit of guardianship. Pedro Griffiths, pt's out patient psychopharmacologist, was unable to be reached during the admission, however, pt's care was reviewed with her by phone on 03/15/22. No psychotropic medication changes were made during the admission. Williams did exhibit periods of behavioral dyscontrol, outbursts of emotion and anger, however, he was able to express himself verbally, exhaust physical energy, and regroup and return to the team and this check writer to move forward with his care. He was able to process some of the behaviors which contributed to the hospitalization and was able to identify alternative ways of managing his frustration, anger and initial difficulty with compromise. His mother was very involved with his care and is completely invested in his wellness and progress. She is his best and strongest support and was helpful to Williams in clarification of his plan of care. [facility] was involved as well. Currently, they declined respite care for Williams as he chooses to manage his diabetes without taking medical recommendations. There were no other short term rehabilitation options they had for him once the acute need for hospitalization had ended. He was medicine compliant during this admission. Time spent discussing smoking cessation with patient: 3 to 10 minutes Status at Discharge Functional status at discharge: independent ambulation Overall status at discharge: patient is back to baseline Time Spent with Patient Time attestation: Total time spent providing and/or coordinating discharge services: 45 Time spent: Greater than 30 minutes Discharge Plan Discharge Patient Disposition: Home, Self-Care Discharge Diagnosis: Schizoaffective Disorder, bipolar type Borderline Personality Disorder Diabetes Asthma Referrals: Psychiatric Med Management: Pedro Griffiths [Other] - 03/30/22 4:00 pm (This is a Telehealth appointment) [facility] ([facility]) [Other] - 1 Week (Please contact your [facility] Team at the above number to discuss your services with [facility]) Gricel Daniel MD [Primary Care Provider] - 03/10/22 10:15 am (IN OFFICE) Discharge Medications: New Invega Sustenna 234 mg/1.5 mL Syringe 234 mg IM Q30D Qty: 0 0RF Continued Tresiba FlexTouch U-200 200 unit/mL (3 mL) insulin pen 160 unit subcut DAILY metformin 500 mg tablet extended release 24 hr 2 tab PO BID insulin lispro [Humalog KwikPen Insulin] 100 unit/mL insulin pen 0 - 100 unit subcut DAILY divalproex 500 mg tablet,delayed release (DR/EC) 1 tab PO QAM bupropion HCl 150 mg tablet extended release 24 hr 1 tab PO DAILY omeprazole 20 mg capsule,delayed release(DR/EC) 1 cap PO DAILY fenofibrate micronized 43 mg capsule 1 cap PO DAILY budesonide-formoterol [Symbicort] 80-4.5 mcg/actuation HFA aerosol inhaler 2 puff PO BID Trulicity 0.75 mg/0.5 mL pen injector 0.75 mg subcut QWEEK rosuvastatin 20 mg tablet 1 tab PO DAILY haloperidol 5 mg tablet 10 mg PO BEDTIME Qty: 60 0RF haloperidol 5 mg tablet 1 tab PO QAM Qty: 30 0RF divalproex 500 mg tablet,delayed release (DR/EC) 1,000 mg PO BEDTIME Qty: 90 0RF lamotrigine 25 mg Tablet 50 mg PO DAILY 30 Days Qty: 60 0RF gabapentin 300 mg capsule 1 cap PO BID Qty: 60 0RF lorazepam 1 mg tablet 1 tab PO BID PRN (Reason: anxiety) Qty: 30 1RF Discharge Orders: Discharge Order (Routine); Ordered 03/09/22 Ordered By: Angela Lombardi Diet: Diabetic diet Activity on Discharge: As tolerated Stand Alone Forms: Patient Portal Discharge page, Community Support Care Plan Goals: Maintain Mood and Safe Behaviors Take medications as directed Follow a diabetic diet for blood sugar stabilization Practice Coping Skills Continue with out patient providers and connect with your out patient team as needed Health Concerns: Mood and behavioral stabilization Follow a diabetic diet to assist with stable blood sugar levels Plan of Treatment: Follow up with primary care physician, psychiatric providers and out patient team Take medications as directed Follow instructions given by out patient team Assessment: Discussed with Williams about leaving the hospital. He is fully oriented and without any SI, HI, mood lability or psychosis. He has insight and demonstrates good judgment in terms of wanting to pursue treatment and of the concerns which led to his hospitalization. He describes changes in his management of frustration when at home and offers his ideas regarding activities he can engage in to assist with mgt of symptoms when at his home, including physical activity, which he is aware will help with his management of his blood sugar. He is not in imminent risk of harm to self or others and has a plan for safety that included presenting to the closest ER or calling 911/crisis if he is not feeling safe. During his stay, he has been observed by the team, has responded to behavioral interventions, and has not required changes to his standing medication regime. He has not engaged in behaviors which suggest dangerousness to self or others and has demonstrated control in behaviors when frustrated with team support. Discharge Date/Time: 03/09/22 13:12
== END 2022-03-09 13:12 | disposition home or self-care (01) | DRG 750 ==
LOC: HO.ED 21:39 → HO.PM5 02-25 00:40
PROVIDERS: Physician Assistant; Registered Nurse; Admitting Provider Psychiatry & Neurology Psychiatry; Emergency Provider Internal Medicine; PCP General Practice; Visit Provider Clinical Nurse Specialist Psychiatric/Mental Health, Adult
DX: F25.0 Schizoaffective disorder, bipolar type (principal); R45.851 Suicidal ideations; R45.850 Homicidal ideations; F17.210 Nicotine dependence, cigarettes, uncomplicated; F60.3 Borderline personality disorder; E11.65 Type 2 diabetes mellitus with hyperglycemia; J45.909 Unspecified asthma, uncomplicated; F43.10 Post-traumatic stress disorder, unspecified; Z71.6 Tobacco abuse counseling; Z20.822 Contact with and (suspected) exposure to COVID-19; Z79.4 Long term (current) use of insulin; Z79.84 Long term (current) use of oral hypoglycemic drugs; Z79.899 Other long term (current) drug therapy
CPT/HCPCS: 36415; 73130; 80048; 80053; 80061; 80164; 80307; 81001; 82009; 82077; 82565; 82607; 82746; 82947; 83036; 83735; 84439; 84443; 85025; 87086; 87635; 99285; J2426

== ENCOUNTER 2022-03-21 17:10 | Emergency (ER) | payer MEDICAID, SELFPAY ==
[2022-03-21 17:17] VITALS: BP 132/74; PULSE 114; O2SAT 99
[2022-03-21 17:21] VITALS: BP 130/74; PULSE 99; RESP 18; TEMP 37.2; O2SAT 100; BMI 50.6
== END 2022-03-21 23:13 | disposition left against medical advice (07) ==
PROVIDERS: Emergency Provider Emergency Medicine
DX: F31.9 Bipolar disorder, unspecified (principal); Z63.8 Other specified problems related to primary support group
CPT/HCPCS: 99281

== ENCOUNTER 2022-04-27 18:13 | Inpatient (IN) | payer OTHER, MEDICAID, SELFPAY ==
--- NOTE | 2022-04-27 18:17 | ED.PSYCH ---
HPI - Psych General Chief Complaint: Psychiatric Symptoms Stated Complaint: SI, HI, SEC 12 Time Seen by Provider: 04/27/22 18:16 Source: patient and old records reviewed Mode of arrival: EMS Limitations: other (not very forthcoming) History of Present Illness HPI Narrative: 22 yo patient with hx of asthma, DM, schizoaffective ds bipolar type, borderline personality disorder here with c/o not taking his medications, aggression towards family, SI. Patient isn't very forthcoming with information. He is asking for food on arrival. BS in 500s states he last took his insulin sometime yesterday has hx of non compliance in past. MD complaint: suicidal ideation, feels depressed and other (agitation, anxiety.) Onset (ago): day(s) (2) Duration: getting worse History of same: Yes Relieving factors: none Exacerbating factors: other (family stress) Context: not taking psychiatric medications and significant life stressor Associated psychiatric symptoms: depression and suicidal ideation Associated symptoms: denies other symptoms Treatments prior to arrival: placed on mental health hold If self harm: admits thoughts of self harm Related Data Home Medications Medication Instructions Recorded Confirmed budesonide-formoterol HFA 80 2 puff PO BID 02/24/22 04/27/22 mcg-4.5 mcg/actuation aerosol inhaler (Symbicort) bupropion HCl 150 mg 24 hr tablet, 1 tab PO DAILY 02/24/22 04/27/22 extended release fenofibrate micronized 43 mg 1 cap PO DAILY 02/24/22 04/27/22 capsule metformin 500 mg tablet,extended 2 tab PO BID 02/24/22 04/27/22 release 24 hr omeprazole 20 mg capsule,delayed 1 cap PO DAILY 02/24/22 04/27/22 release rosuvastatin 20 mg tablet 1 tab PO DAILY 02/24/22 04/27/22 divalproex 500 mg tablet,delayed 500 mg PO QAM 04/27/22 04/27/22 release dulaglutide 0.75 mg/0.5 mL 0.75 mg subcut QWEEK 04/27/22 04/27/22 [facility] haloperidol 5 mg tablet 5 mg PO QAM 04/27/22 04/27/22 insulin degludec 200 unit/mL (3 160 unit subcut DAILY 04/27/22 04/27/22 mL) subcutaneous pen (Tresiba FlexTouch U-200 insulin) insulin lispro 100 unit/mL 0 - 100 unit subcut DAILY 04/27/22 04/27/22 subcutaneous pen (Humalog KwikPen (U-100) Insulin) lamotrigine 25 mg tablet 2 tab PO DAILY 04/27/22 04/27/22 lorazepam 1 mg tablet 1 tab PO BID PRN anxiety 04/27/22 04/27/22 Previous Rx's Medication Instructions Recorded gabapentin 300 mg capsule 1 cap PO BID #60 caps 03/09/22 haloperidol 5 mg tablet 10 mg PO BEDTIME #60 tabs 03/09/22 paliperidone palmitate 234 mg/1.5 234 mg (1.5 mL) IM Q30D #0 mL 03/09/22 mL intramuscular syringe (Invega Sustenna) Allergies Allergy/AdvReac Type Severity Reaction Status Date / Time No Known Allergies Allergy Verified 07/07/21 13:26 [No Known Allergies*] Review of Systems Review of Systems: Constitutional : No Fever, No Chills ENT/Mouth : No Ear Pain, No Nasal Congestion, No sore throat Eyes: No Eye Pain, No Swelling, No Redness Cardiovascular : No Chest Pain, No SOB Respiratory : No Cough, No Sputum, No Dyspnea Gastrointestinal : No Nausea, No Vomiting, No Diarrhea, No Hematochezia, No Melena Genitourinary : No Dysuria, No Urinary Frequency, No Hematuria Musculoskeletal : No Myalgias Skin : No Skin Lesions, No rash Neuro : No Weakness, No Numbness, No Paresthesias, No Dizziness, No Headache Psych : positive Anxiety, positive Depression, positive SI no HI Heme/Lymph: No Lymphadenopathy Endocrine : No Polyuria, No Polydipsia, pos elevated blood sugar All other systems reviewed and are negative [facility] Past Medical History Attestation statement: The following information was validated with the patient. 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 Concussion Depression Depression Diabetes mellitus, type 2 Diabetes type 2, uncontrolled Hyperglycemia PTSD (post-traumatic stress disorder) Social History Social History Household Members: Family Household Members Other:: mother, sister Housing: Apartment Do you presently have visiting nurse or other home services: No Alcohol intake: never Patient Tobacco Use Status: Current everyday Tobacco user Tobacco use type: Cigarette Cigarette Packs Per Day: 1 Cigarettes Per Day: 20.0 Years Smoked: 4 years e-Cigarette/Vaping Use: Currently Using Second Hand Smoke Exposure: Yes Substance Use Type: Marijuana Advance Directives: No Advance Directives Information Provided: No service: No Sexual orientation: Did not discuss Physical Exam Vital Signs: Vital Signs: Last Vital Signs Temp 97.6 F 04/27/22 18:59 Pulse 96 04/27/22 18:59 Resp 17 04/27/22 18:59 BP 112/63 04/27/22 18:59 Pulse Ox 96 04/27/22 18:59 O2 Del Method 04/27/22 18:59 BMI result Body Mass Index 48.7 Appearance: Alert. Oriented X3. No acute distress. Flat affect, not really participating in exam. Eyes: Pupils equal, round and reactive to light. ENT: Pharynx normal. Neck: Normal inspection. Neck supple. CVS: Normal heart rate and rhythm. Pulses normal. Respiratory: No respiratory distress. Breath sounds normal. Abdomen: Soft and nontender. Obese Skin: Skin warm and dry. Normal skin color. Normal skin turgor. Extremities: No lower extremity edema. walking around barefoot Neuro: Oriented X 3. No motor deficit. No sensory deficit. CN2-12 grossly intact Course Course Course Narrative: Physician observation started at 905pm Patient placed in physician observation because the patient needed more time for N to assess the need for psych admission. At the time observation was started the patient's vitals were stable, patient is alert and oriented MDM - Psych MDM Narrative Medical decision making narrative: 22 yo patient with hx of asthma, DM, schizoaffective ds bipolar type, borderline personality disorder here on S12 for SI/aggression. At this time will need labs, start of insulin, refer to N. Dispo per medical and crisis workup. Lab Data Result diagrams: 04/27/22 20:20 04/27/22 20:20 Labs: Lab Results 04/27/22 04/27/22 04/27/22 Range/Units 18:23 18:46 18:46 WBC (4.8-10.8) X10*3/uL RBC (4.60-5.80) X10*6/uL Hgb (14.0-18.0) g/dl Hct (42.0-52.0) % MCV (80.0-98.0) fL MCH (27.0-33.0) pg MCHC (31.0-36.0) g/dl RDW (11.0-16.0) % Plt Count (160-400) X10*3/uL MPV (9.4-12.4) fL Immature Gran % (Auto) (0.0-0.4) % Neut % (Auto) (45-73) % Lymph % (Auto) (20-40) % [place] % (Auto) (2-11) % Eos % (Auto) (0-4) % Baso % (Auto) (0-2) % Lymph # (Auto) (1.2-4.9) X10*3/uL [place] # (Auto) (0.1-1.2) X10*3/uL Eos # (Auto) (0.0-0.4) X10*3/uL Baso # (Auto) (0.0-0.2) X10*3/uL Abs Immat Gran (auto) (0.00-0.03) X10*3/uL Absolute Neuts (auto) (2.0-8.3) x10*3/uL Absolute Nucleated RBC (0.0-0.012) X10*3/uL Nucleated RBC % (auto) (0.0-0.2) /100WBC Sodium (135-145) mmol/L Potassium (3.3-5.1) mmol/L Chloride (96-108) mmol/L Carbon Dioxide (22-29) mmol/L Anion Gap (12-20) BUN (9-16) mg/dL Creatinine (0.5-1.4) mg/dL Estim Creat Clear Calc Estimated GFR POC Glucose 548 H* (60-115) mg/dL Random Glucose (60-115) mg/dL Calcium (8.4-10.2) mg/dL Total Bilirubin (0.0-1.0) mg/dL Direct Bilirubin (0.0-0.5) mg/dL AST (5-37) U/L ALT (0-40) U/L Alkaline Phosphatase (39-117) U/L Total Protein (6.5-8.0) g/dL Albumin (3.5-5.0) g/dL Urine Opiates Screen Not Detected (Not Detect) Urine Fentanyl Screen Not Detected (Not Detect) Ur Barbiturates Screen Not Detected (Not Detect) Valproic Acid (50.0-100.0) mcg/mL Ur Phencyclidine Scrn Not Detected (Not Detect) Ur Amphetamines Screen Not Detected (Not Detect) U Benzodiazepines Scrn Not Detected (Not Detect) Urine Cocaine Screen Not Detected (Not Detect) U Marijuana (THC) Screen Not Detected (Not Detect) Acetone, Qual (Negative) COVID-19 ([facility]) Negative (Negative) COVID-19 Clin Com See Note 04/27/22 04/27/22 04/27/22 Range/Units 20:20 20:20 20:20 WBC 10.9 H (4.8-10.8) X10*3/uL RBC 5.35 (4.60-5.80) X10*6/uL Hgb 15.9 (14.0-18.0) g/dl Hct 44.8 (42.0-52.0) % MCV 83.7 (80.0-98.0) fL MCH 29.7 (27.0-33.0) pg MCHC 35.5 (31.0-36.0) g/dl RDW 12.0 (11.0-16.0) % Plt Count 207 (160-400) X10*3/uL MPV 11.0 (9.4-12.4) fL Immature Gran % (Auto) 0.5 H (0.0-0.4) % Neut % (Auto) 50.8 (45-73) % Lymph % (Auto) 36.6 (20-40) % [place] % (Auto) 10.0 (2-11) % Eos % (Auto) 1.6 (0-4) % Baso % (Auto) 0.5 (0-2) % Lymph # (Auto) 4.0 (1.2-4.9) X10*3/uL [place] # (Auto) 1.1 (0.1-1.2) X10*3/uL Eos # (Auto) 0.2 (0.0-0.4) X10*3/uL Baso # (Auto) 0.1 (0.0-0.2) X10*3/uL Abs Immat Gran (auto) 0.05 H (0.00-0.03) X10*3/uL Absolute Neuts (auto) 5.6 (2.0-8.3) x10*3/uL Absolute Nucleated RBC 0.000 (0.0-0.012) X10*3/uL Nucleated RBC % (auto) 0.0 (0.0-0.2) /100WBC Sodium 136 (135-145) mmol/L Potassium 3.6 (3.3-5.1) mmol/L Chloride 102 (96-108) mmol/L Carbon Dioxide 21 L (22-29) mmol/L Anion Gap 17 (12-20) BUN 8 L (9-16) mg/dL Creatinine 0.94 (0.5-1.4) mg/dL Estim Creat Clear Calc 185.4 Estimated GFR > 60 POC Glucose (60-115) mg/dL Random Glucose 438 H* (60-115) mg/dL Calcium 9.2 (8.4-10.2) mg/dL Total Bilirubin 0.4 (0.0-1.0) mg/dL Direct Bilirubin < 0.2 (0.0-0.5) mg/dL AST 10 (5-37) U/L ALT 13 (0-40) U/L Alkaline Phosphatase 120 H (39-117) U/L Total Protein 6.5 (6.5-8.0) g/dL Albumin 3.8 (3.5-5.0) g/dL Urine Opiates Screen (Not Detect) Urine Fentanyl Screen (Not Detect) Ur Barbiturates Screen (Not Detect) Valproic Acid 45.0 L (50.0-100.0) mcg/mL Ur Phencyclidine Scrn (Not Detect) Ur Amphetamines Screen (Not Detect) U Benzodiazepines Scrn (Not Detect) Urine Cocaine Screen (Not Detect) U Marijuana (THC) Screen (Not Detect) Acetone, Qual Small H (Negative) COVID-19 ([facility]) (Negative) COVID-19 Clin Com Discharge Plan Discharge Clinical Impression: Schizoaffective disorder, bipolar type Diabetes type 2, uncontrolled Qualifiers: Glycemic state: with hyperglycemia Qualified Code(s): E11.65 - Type 2 diabetes mellitus with hyperglycemia Patient Disposition: Still a Patient Prescriptions: No Action metformin 500 mg tablet extended release 24 hr 2 tab PO BID bupropion HCl 150 mg tablet extended release 24 hr 1 tab PO DAILY omeprazole 20 mg capsule,delayed release(DR/EC) 1 cap PO DAILY fenofibrate micronized 43 mg capsule 1 cap PO DAILY budesonide-formoterol [Symbicort] 80-4.5 mcg/actuation HFA aerosol inhaler 2 puff PO BID rosuvastatin 20 mg tablet 1 tab PO DAILY Invega Sustenna 234 mg/1.5 mL Syringe 234 mg IM Q30D Qty: 0 0RF haloperidol 5 mg tablet 10 mg PO BEDTIME Qty: 60 0RF gabapentin 300 mg capsule 1 cap PO BID Qty: 60 0RF haloperidol 5 mg tablet 5 mg PO QAM divalproex 500 mg tablet,delayed release (DR/EC) 500 mg PO QAM lamotrigine 25 mg tablet 2 tab PO DAILY lorazepam 1 mg tablet 1 tab PO BID PRN (Reason: anxiety) insulin lispro [Humalog KwikPen Insulin] 100 unit/mL insulin pen 0 - 100 unit subcut DAILY insulin degludec [Tresiba FlexTouch U-200] 200 unit/mL (3 mL) insulin pen 160 unit subcut DAILY Trulicity 0.75 mg/0.5 mL pen injector 0.75 mg subcut QWEEK
[2022-04-27 18:27] LABS: Glucose, Whole Blood 548 mg/dL (60-115)
[2022-04-27] MEDS: Insulin Lispro 100 UNIT/ML 3 ML VIAL 12 UNIT SUBCUT (18:56)
[2022-04-27 18:59] VITALS: BP 112/63; PULSE 96; RESP 17; TEMP 36.4; O2SAT 96; BMI 48.7
[2022-04-27 19:06] LABS: COVID-19 Test Negative (Negative)
[2022-04-27 19:09] LABS: Amphetamine Screen Urine Not Detected (Not Detect); Barbiturates, Urine Not Detected (Not Detect); Benzodiazepines Screen Urine Not Detected (Not Detect); Cannabinoid Screen Urine Not Detected (Not Detect); Cocaine Screen Urine Not Detected (Not Detect); Fentanyl, urine Not Detected (Not Detect); Opiate Screen Urine Not Detected (Not Detect); Phencyclidine Screen Urine Not Detected (Not Detect)
[2022-04-27 20:32] LABS: MANUAL DIFF FLAG NO
[2022-04-27 20:34] LABS: Basophils Absolute Auto 0.1 X10*3/uL (0.0-0.2); Basophils Percent Auto 0.5 % (0-2); Eosinophils Absolute Auto 0.2 X10*3/uL (0.0-0.4); Eosinophils Percent Auto 1.6 % (0-4); Hematocrit 44.8 % (42.0-52.0); Hemoglobin 15.9 g/dl (14.0-18.0); Imm Gran Abs Auto 0.05 X10*3/uL (0.00-0.03); Imm Gran Pct Auto 0.5 % (0.0-0.4); Lymphocytes Percent Auto 36.6 % (20-40); Mean Corpuscular HGB Conc 35.5 g/dl (31.0-36.0); Mean Corpuscular Hemoglobin 29.7 pg (27.0-33.0); Mean Corpuscular Volume 83.7 fL (80.0-98.0); Monocytes Absolute Auto 1.1 X10*3/uL (0.1-1.2); Neutrophils Absolute Auto 5.6 x10*3/uL (2.0-8.3); Neutrophils Percent Auto 50.8 % (45-73); Platelet Count 207 X10*3/uL (160-400); Red Blood Count 5.35 X10*6/uL (4.60-5.80); White Blood Count 10.9 X10*3/uL (4.8-10.8)
[2022-04-27 20:44] LABS: Acetone, serum QL Small (Negative)
[2022-04-27 21:00] LABS: Alanine Aminotransferase 13 U/L (0-40); Albumin Level 3.8 g/dL (3.5-5.0); Alkaline Phosphatase 120 U/L (39-117); Anion Gap 17 (12-20); Aspartate Amino Transferase 10 U/L (5-37); Bilirubin Direct < 0.2 mg/dL (0.0-0.5); Bilirubin Total 0.4 mg/dL (0.0-1.0); Blood Urea Nitrogen 8 mg/dL (9-16); Calcium 9.2 mg/dL (8.4-10.2); Carbon Dioxide 21 mmol/L (22-29); Chloride 102 mmol/L (96-108); Creatinine Clr Calc Pharmacy 185.4; Estimated Glomerular Filt Rate > 60; Glucose Random 438 mg/dL (60-115); Potassium 3.6 mmol/L (3.3-5.1); Sodium 136 mmol/L (135-145); Total Protein 6.5 g/dL (6.5-8.0)
[2022-04-27] MEDS: HaloperidoL 5 MG TABLET 10 MG PO (21:01)
[2022-04-27] MEDS: Gabapentin 300 MG CAPSULE PO (21:01)
[2022-04-27 21:06] LABS: Glucose, Whole Blood 332 mg/dL (60-115)
[2022-04-27] MEDS: metFORMIN HCl ER 500 MG TAB.ER.24H 1000 MG PO (21:06)
[2022-04-27] MEDS: Insulin Lispro 100 UNIT/ML 3 ML VIAL SUBCUT (21:07)
--- NOTE | 2022-04-27 21:41 | PC.NURSE ---
critical result reported to AALIYAH of poc and Provider aware
[2022-04-28 03:22] VITALS: BP 140/76; PULSE 95; RESP 16; TEMP 36.2; O2SAT 96
--- NOTE | 2022-04-28 05:59 | PC.NURSE ---
Patient slept through the night, no distress observed/reported, medication compliant including insulin coverage, disposition per N from the community is section 12 inpatient bed search, behavior appropriate, VSS, patient snacks frequently, will continue to monitor.
[2022-04-28] MEDS: Omeprazole 20 MG CAPSULE.DR PO (06:35)
[2022-04-28 07:03] LABS: Glucose, Whole Blood 380 mg/dL (60-115)
[2022-04-28] MEDS: Insulin Lispro 100 UNIT/ML 3 ML VIAL SUBCUT ×4 (07:04→22:19)
--- NOTE | 2022-04-28 07:05 | PC.NURSE ---
POC at 0656 was 380, covered with 10 units of Humalog, patient compliant currently in his room eating breakfast, will continue to monitor.
[2022-04-28] MEDS: Nicotine Polacrilex 2 MG GUM BUCCAL ×2 (07:41→09:47)
[2022-04-28] MEDS: metFORMIN HCl ER 500 MG TAB.ER.24H 1000 MG PO ×2 (07:56→22:16)
[2022-04-28] MEDS: Atorvastatin Calcium 80 MG TABLET PO (07:57)
[2022-04-28] MEDS: HaloperidoL 5 MG TABLET PO (07:57)
[2022-04-28] MEDS: Gabapentin 300 MG CAPSULE PO ×2 (07:57→22:18)
[2022-04-28] MEDS: buPROPion HCl XL 150 MG TAB.ER.24H PO (07:57)
[2022-04-28] MEDS: Divalproex Sodium 500 MG TABLET.DR PO ×2 (07:57→22:17)
[2022-04-28] MEDS: lamoTRIgine 25 MG TABLET 50 MG PO (07:57)
[2022-04-28] MEDS: Fluticasone/Vilanterol 100/25 BLST.W.DEV 1 PUFF INHALE (08:05)
[2022-04-28] MEDS: Insulin Glargine,Hum.rec.anlog 100 UNIT/ML 10 ML VIAL SUBCUT (08:19)
[2022-04-28 11:21] VITALS: BP 142/80; PULSE 89; RESP 16; TEMP 36.6; O2SAT 97
[2022-04-28 11:29] LABS: Glucose, Whole Blood 478 mg/dL (60-115)
[2022-04-28] MEDS: Nicotine Polacrilex 2 MG GUM 4 MG BUCCAL (12:37)
[2022-04-28 13:11] VITALS: BMI 48.9
[2022-04-28] MEDS: LORazepam 1 MG TABLET PO (14:26)
[2022-04-28] MEDS: HaloperidoL 5 MG TABLET 10 MG PO ×2 (14:27→22:17)
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
[2022-04-28 17:53] LABS: Glucose, Whole Blood 403 mg/dL (60-115)
--- NOTE | 2022-04-28 18:06 | PC.NURSE ---
Patient POC 403, Dr. Dill and [facility] notified, waiting response.
--- NOTE | 2022-04-28 18:26 | PC.NURSE ---
vd message from Dr. Dill, no additional coverage at this time.
[2022-04-28 21:55] LABS: Glucose, Whole Blood 575 mg/dL (60-115)
[2022-04-28 21:55] LABS: Glucose, Whole Blood 570 mg/dL (60-115)
[2022-04-28 22:00] VITALS: BP 136/64; PULSE 72; RESP 18; TEMP 36.3; O2SAT 95
[2022-04-28] MEDS: Insulin Lispro 100 UNIT/ML 3 ML VIAL 10 UNIT SUBCUT (22:18)
--- NOTE | 2022-04-28 23:42 | PC.NURSE ---
At 2200 patient's POC was 575, on retest it was 570. notified and an additional 10 units of Lispro was given with the sliding scale dose of 10 units for a total dose of 20 units.
[2022-04-29] MEDS: Omeprazole 20 MG CAPSULE.DR PO (06:40)
[2022-04-29 06:45] LABS: Glucose, Whole Blood 301 mg/dL (60-115)
[2022-04-29] MEDS: Nicotine Polacrilex 2 MG GUM 4 MG BUCCAL ×4 (06:52→15:09)
[2022-04-29 07:00] VITALS: BMI 48.2
[2022-04-29 08:00] VITALS: BP 132/60; PULSE 94; RESP 18; TEMP 36.9; O2SAT 94
[2022-04-29] MEDS: Fenofibrate 54 MG TABLET PO (08:15)
[2022-04-29] MEDS: buPROPion HCl XL 150 MG TAB.ER.24H PO (08:15)
[2022-04-29] MEDS: lamoTRIgine 25 MG TABLET 50 MG PO (08:16)
[2022-04-29] MEDS: metFORMIN HCl ER 500 MG TAB.ER.24H 1000 MG PO ×2 (08:16→22:00)
[2022-04-29] MEDS: Gabapentin 300 MG CAPSULE PO ×2 (08:17→22:00)
[2022-04-29] MEDS: HaloperidoL 5 MG TABLET PO (08:17)
[2022-04-29] MEDS: Atorvastatin Calcium 80 MG TABLET PO (08:17)
[2022-04-29] MEDS: Divalproex Sodium 500 MG TABLET.DR PO ×2 (08:17→22:00)
[2022-04-29 08:18] LABS: Hemoglobin A1c % > 14.0 %
[2022-04-29] MEDS: LORazepam 1 MG TABLET PO (08:22)
[2022-04-29 08:27] LABS: Alanine Aminotransferase 16 U/L (0-40); Alkaline Phosphatase 97 U/L (39-117); Anion Gap 19 (12-20); Aspartate Amino Transferase 11 U/L (5-37); Bilirubin Direct 0.2 mg/dL (0.0-0.5); Bilirubin Total 0.6 mg/dL (0.0-1.0); Blood Urea Nitrogen 12 mg/dL (9-16); Carbon Dioxide 22 mmol/L (22-29); Chloride 100 mmol/L (96-108); Cholesterol 129 mg/dL; Creatinine Clr Calc Pharmacy 180.3; Estimated Glomerular Filt Rate > 60; HDL Cholesterol 27 mg/dL; Potassium 4.2 mmol/L (3.3-5.1); Sodium 137 mmol/L (135-145); Total Protein 6.8 g/dL (6.5-8.0); Triglycerides 429 mg/dL
[2022-04-29 08:46] LABS: Thyroid Stimulating Hormone 1.62 uIU/mL (0.32-4.0)
[2022-04-29 08:51] LABS: Glucose, Whole Blood 491 mg/dL (60-115)
[2022-04-29 09:07] LABS: Folate 13.3 ng/mL (> or = 4.0); Vitamin B12 763 pg/mL (200-900)
[2022-04-29] MEDS: Insulin Lispro 100 UNIT/ML 3 ML VIAL SUBCUT ×4 (09:07→22:00)
[2022-04-29] MEDS: Insulin Glargine,Hum.rec.anlog 100 UNIT/ML 10 ML VIAL SUBCUT (09:08)
[2022-04-29 12:30] LABS: Glucose Fasting 500 mg/dL (60-99)
[2022-04-29 12:35] LABS: Glucose, Whole Blood 396 mg/dL (60-115)
--- NOTE | 2022-04-29 13:34 | P.PNPSI_ITS ---
Subjective Subjective Date of Service: 04/29/22 Reason For Visit: SI/Aggression Interim History: found sleeping in bed late morning, rousable. states he is feeling better and that the medication worked last night. reports it calmed me down. slept well. no complaints or requests. expecting to discharge thursday 05/03. per staff, feling better, wants DC. denies anx/dep/SI/HI. FSBS 575 last NOC, got 20 U SSI. FSBS 500 this morning. Mental Status Exam Mental Status Exam Narrative: appropriately dressed and groomed. no PMA/PMR, cooperative. speech nml rate, decr amount, decr loudness. flattened tone, nml latency. thoughts linear and logical. affect constricted, hypo-intense, non-labile. mood better. no SI/HI/AVH expressed. Diagnostics Vital Signs (24Hr): Vital Signs - 24 hr 04/28/22 22:00 04/29/22 08:00 Temperature 97.4 F 98.5 F Pulse Rate 72 94 Respiratory Rate 18 18 Blood Pressure 136/64 132/60 Pulse Oximetry 95 94 Oxygen Delivery Method Room Air Room Air BMI result Body Mass Index 48.2 Labs Results: 04/27/22 20:20 04/29/22 07:46 Labs: Laboratory Results - last 48 hr 04/27/22 04/27/22 04/27/22 18:23 18:46 18:46 WBC RBC Hgb Hct MCV MCH MCHC RDW Plt Count MPV Immature Gran % (Auto) Neut % (Auto) Lymph % (Auto) [place] % (Auto) Eos % (Auto) Baso % (Auto) Lymph # (Auto) [place] # (Auto) Eos # (Auto) Baso # (Auto) Abs Immat Gran (auto) Absolute Neuts (auto) Absolute Nucleated RBC Nucleated RBC % (auto) Sodium Potassium Chloride Carbon Dioxide Anion Gap BUN Creatinine Estim Creat Clear Calc Estimated GFR POC Glucose 548 H* Random Glucose Fasting Glucose Estimat Average Glucose Hemoglobin A1c % Calcium Total Bilirubin Direct Bilirubin AST ALT Alkaline Phosphatase Total Protein Albumin Triglycerides Cholesterol LDL Cholesterol, Calc HDL Cholesterol Vitamin B12 Folate TSH Urine Opiates Screen Not Detected Urine Fentanyl Screen Not Detected Ur Barbiturates Screen Not Detected Valproic Acid Ur Phencyclidine Scrn Not Detected Ur Amphetamines Screen Not Detected U Benzodiazepines Scrn Not Detected Urine Cocaine Screen Not Detected U Marijuana (THC) Screen Not Detected Acetone, Qual COVID-19 ([facility]) Negative COVID-19 Clin Com See Note 04/27/22 04/27/22 04/27/22 20:20 20:20 20:20 WBC 10.9 H RBC 5.35 Hgb 15.9 Hct 44.8 MCV 83.7 MCH 29.7 MCHC 35.5 RDW 12.0 Plt Count 207 MPV 11.0 Immature Gran % (Auto) 0.5 H Neut % (Auto) 50.8 Lymph % (Auto) 36.6 [place] % (Auto) 10.0 Eos % (Auto) 1.6 Baso % (Auto) 0.5 Lymph # (Auto) 4.0 [place] # (Auto) 1.1 Eos # (Auto) 0.2 Baso # (Auto) 0.1 Abs Immat Gran (auto) 0.05 H Absolute Neuts (auto) 5.6 Absolute Nucleated RBC 0.000 Nucleated RBC % (auto) 0.0 Sodium 136 Potassium 3.6 Chloride 102 Carbon Dioxide 21 L Anion Gap 17 BUN 8 L Creatinine 0.94 Estim Creat Clear Calc 185.4 Estimated GFR > 60 POC Glucose Random Glucose 438 H* Fasting Glucose Estimat Average Glucose Hemoglobin A1c % Calcium 9.2 Total Bilirubin 0.4 Direct Bilirubin < 0.2 AST 10 ALT 13 Alkaline Phosphatase 120 H Total Protein 6.5 Albumin 3.8 Triglycerides Cholesterol LDL Cholesterol, Calc HDL Cholesterol Vitamin B12 Folate TSH Urine Opiates Screen Urine Fentanyl Screen Ur Barbiturates Screen Valproic Acid 45.0 L Ur Phencyclidine Scrn Ur Amphetamines Screen U Benzodiazepines Scrn Urine Cocaine Screen U Marijuana (THC) Screen Acetone, Qual Small H COVID-19 ([facility]) COVID-19 Clin Com 04/27/22 04/28/22 04/28/22 21:02 06:56 11:25 WBC RBC Hgb Hct MCV MCH MCHC RDW Plt Count MPV Immature Gran % (Auto) Neut % (Auto) Lymph % (Auto) [place] % (Auto) Eos % (Auto) Baso % (Auto) Lymph # (Auto) [place] # (Auto) Eos # (Auto) Baso # (Auto) Abs Immat Gran (auto) Absolute Neuts (auto) Absolute Nucleated RBC Nucleated RBC % (auto) Sodium Potassium Chloride Carbon Dioxide Anion Gap BUN Creatinine Estim Creat Clear Calc Estimated GFR POC Glucose 332 H 380 H* 478 H* Random Glucose Fasting Glucose Estimat Average Glucose Hemoglobin A1c % Calcium Total Bilirubin Direct Bilirubin AST ALT Alkaline Phosphatase Total Protein Albumin Triglycerides Cholesterol LDL Cholesterol, Calc HDL Cholesterol Vitamin B12 Folate TSH Urine Opiates Screen Urine Fentanyl Screen Ur Barbiturates Screen Valproic Acid Ur Phencyclidine Scrn Ur Amphetamines Screen U Benzodiazepines Scrn Urine Cocaine Screen U Marijuana (THC) Screen Acetone, Qual COVID-19 ([facility]) COVID-19 [facility] Com 04/28/22 04/28/22 04/28/22 17:49 21:48 21:50 WBC RBC Hgb Hct MCV MCH MCHC RDW Plt Count MPV Immature Gran % (Auto) Neut % (Auto) Lymph % (Auto) [place] % (Auto) Eos % (Auto) Baso % (Auto) Lymph # (Auto) [place] # (Auto) Eos # (Auto) Baso # (Auto) Abs Immat Gran (auto) Absolute Neuts (auto) Absolute Nucleated RBC Nucleated RBC % (auto) Sodium Potassium Chloride Carbon Dioxide Anion Gap BUN Creatinine Estim Creat Clear Calc Estimated GFR POC Glucose 403 H* 575 H* 570 H* Random Glucose Fasting Glucose Estimat Average Glucose Hemoglobin A1c % Calcium Total Bilirubin Direct Bilirubin AST ALT Alkaline Phosphatase Total Protein Albumin Triglycerides Cholesterol LDL Cholesterol, Calc HDL Cholesterol Vitamin B12 Folate TSH Urine Opiates Screen Urine Fentanyl Screen Ur Barbiturates Screen Valproic Acid Ur Phencyclidine Scrn Ur Amphetamines Screen U Benzodiazepines Scrn Urine Cocaine Screen U Marijuana (THC) Screen Acetone, Qual COVID-19 ([facility]) COVID-19 Add2paper 04/29/22 04/29/22 04/29/22 06:39 07:46 07:46 WBC RBC Hgb Hct MCV MCH MCHC RDW Plt Count MPV Immature Gran % (Auto) Neut % (Auto) Lymph % (Auto) [place] % (Auto) Eos % (Auto) Baso % (Auto) Lymph # (Auto) [place] # (Auto) Eos # (Auto) Baso # (Auto) Abs Immat Gran (auto) Absolute Neuts (auto) Absolute Nucleated RBC Nucleated RBC % (auto) Sodium 137 Potassium 4.2 Chloride 100 Carbon Dioxide 22 Anion Gap 19 BUN 12 Creatinine 0.96 Estim Creat Clear Calc 180.3 Estimated GFR > 60 POC Glucose 301 H Random Glucose Fasting Glucose 500 H* Estimat Average Glucose TNP Hemoglobin A1c % > 14.0 Calcium 10.0 D Total Bilirubin 0.6 Direct Bilirubin 0.2 AST 11 ALT 16 Alkaline Phosphatase 97 Total Protein 6.8 Albumin 4.0 Triglycerides 429 Cholesterol 129 LDL Cholesterol, Calc TNP HDL Cholesterol 27 Vitamin B12 Folate TSH 1.62 Urine Opiates Screen Urine Fentanyl Screen Ur Barbiturates Screen Valproic Acid Ur Phencyclidine Scrn Ur Amphetamines Screen U Benzodiazepines Scrn Urine Cocaine Screen U Marijuana (THC) Screen Acetone, Qual COVID-19 ([facility]) COVID-19 Add2paper 04/29/22 04/29/22 04/29/22 07:46 08:47 12:31 WBC RBC Hgb Hct MCV MCH MCHC RDW Plt Count MPV Immature Gran % (Auto) Neut % (Auto) Lymph % (Auto) [place] % (Auto) Eos % (Auto) Baso % (Auto) Lymph # (Auto) [place] # (Auto) Eos # (Auto) Baso # (Auto) Abs Immat Gran (auto) Absolute Neuts (auto) Absolute Nucleated RBC Nucleated RBC % (auto) Sodium Potassium Chloride Carbon Dioxide Anion Gap BUN Creatinine Estim Creat Clear Calc Estimated GFR POC Glucose 491 H* 396 H* Random Glucose Fasting Glucose Estimat Average Glucose Hemoglobin A1c % Calcium Total Bilirubin Direct Bilirubin AST ALT Alkaline Phosphatase Total Protein Albumin Triglycerides Cholesterol LDL Cholesterol, Calc HDL Cholesterol Vitamin B12 763 Folate 13.3 TSH Urine Opiates Screen Urine Fentanyl Screen Ur Barbiturates Screen Valproic Acid Ur Phencyclidine Scrn Ur Amphetamines Screen U Benzodiazepines Scrn Urine Cocaine Screen U Marijuana (THC) Screen Acetone, Qual COVID-19 ([facility]) COVID-19 Add2paper Medications Medications Current Medications Acetaminophen (Acetaminophen 325 Mg Tablet) 650 mg PO Q6H PRN PRN Reason: Headache/Pain Mild Scale (1-3) Al Hydroxide/Mg Hydroxide (Magnesium Hydrox/Alum Hydrox 30 Ml Oral.Susp) 30 ml PO Q6H PRN PRN Reason: Heartburn/Nausea Atorvastatin Calcium (Atorvastatin Calcium 80 Mg Tablet) 80 mg PO DAILY [facility] Last Admin: 04/29/22 08:17 Dose: 80 mg Bupropion HCl (Bupropion Hcl Xl 150 Mg Tab.Er.24h) 150 mg PO DAILY [facility] Last Admin: 04/29/22 08:15 Dose: 150 mg Divalproex Sodium (Divalproex Sodium 500 Mg Tablet.Dr) 500 mg PO BID [facility] Last Admin: 04/29/22 08:17 Dose: 500 mg Fenofibrate (Fenofibrate 54 Mg Tablet) 54 mg PO DAILY [facility] Last Admin: 04/29/22 08:15 Dose: 54 mg Fluticasone/Vilanterol (Fluticasone/Vilanterol 100/25 Blst.W.Dev) 1 puff INHALE RDAILY [facility] Last Admin: 04/29/22 09:14 Dose: Not Given Gabapentin (Gabapentin 300 Mg Capsule) 300 mg PO BID [facility] Last Admin: 04/29/22 08:17 Dose: 300 mg Glucose (Glucose Gel 15 Gm Gel..Gram.) 15 gm PO Q15M PRN; Protocol PRN Reason: per Hypoglycemia Standing Ord. Haloperidol (Haloperidol 5 Mg Tablet) 5 mg PO DAILY [facility] Last Admin: 04/29/22 08:17 Dose: 5 mg Haloperidol (Haloperidol 5 Mg Tablet) 10 mg PO BEDTIME [facility] Last Admin: 04/28/22 22:17 Dose: 10 mg Haloperidol (Haloperidol 5 Mg Tablet) 10 mg PO Q4H PRN PRN Reason: anger Last Admin: 04/28/22 14:27 Dose: 10 mg Hydroxyzine HCl (Hydroxyzine Hcl 25 Mg Tablet) 25 mg PO Q6H PRN PRN Reason: Anxiety Insulin Glargine (Insulin Glargine,Hum.Rec.Anlog 100 Unit/Ml 10 Ml Vial) 100 unit SUBCUT DAILY [facility] Last Admin: 04/29/22 09:08 Dose: 100 unit Insulin Human Lispro (Insulin Lispro 100 Unit/Ml 3 Ml Vial) 0 unit SUBCUT QIDACHS [facility]; Protocol Last Admin: 04/29/22 12:42 Dose: 10 unit Lamotrigine (Lamotrigine 25 Mg Tablet) 50 mg PO DAILY [facility] Last Admin: 04/29/22 08:16 Dose: 50 mg Lorazepam (Lorazepam 1 Mg Tablet) 1 mg PO BID PRN PRN Reason: anxiety Last Admin: 04/29/22 08:22 Dose: 1 mg Magnesium Hydroxide (Milk Of Magnesia 30 Ml Oral.Susp) 30 ml PO DAILY PRN PRN Reason: Constipation Metformin HCl (Metformin Hcl Er 500 Mg Tab.Er.24h) 1,000 mg PO BID [facility] Last Admin: 04/29/22 08:16 Dose: 1,000 mg Nicotine Polacrilex (Nicotine Polacrilex 2 Mg Gum) 4 mg BUCCAL Q2H PRN PRN Reason: Nicotine Cravings Last Admin: 04/29/22 12:41 Dose: 4 mg Omeprazole (Omeprazole 20 Mg Capsule.Dr) 20 mg PO DAILY@0630 [facility] Last Admin: 04/29/22 06:40 Dose: 20 mg Paliperidone Palmitate (Paliperidone Palmitate 234 Mg/1.5 Ml Syringe) 234 mg IM Q30D GRETA Trazodone HCl (Trazodone Hcl 50 Mg Tablet) 50 mg PO BEDTIME PRN PRN Reason: Insomnia Allergies Allergies Allergy/AdvReac Type Severity Reaction Status Date / Time No Known Allergies Allergy Verified 07/07/21 13:26 [No Known Allergies*] Assessment & Plan Assessment & Plan (1) Schizoaffective disorder, bipolar type: Status: Acute Code(s): F25.0 - Schizoaffective disorder, bipolar type (2) Borderline personality disorder in adult: Status: Acute Code(s): F60.3 - Borderline personality disorder (3) Diabetes type 2, uncontrolled: Qualifiers: Glycemic state: with hyperglycemia Qualified Code(s): E11.65 - Type 2 diabetes mellitus with hyperglycemia Status: Acute Code(s): E11.65 - Type 2 diabetes mellitus with hyperglycemia (4) Asthma: Status: Acute Code(s): J45.909 - Unspecified asthma, uncomplicated Plan 04/28: continue outpt meds aside from doubling VPA from 500 daily to 500 BID in order to address CC of anger. 04/29: tolerated VPA dose increase well, reports it calmed me down. continue current mgmt. plan to check VPA level tuesday morning with expectation to discharge after. I spent ___15___ minutes with the patient and/or on the patient floor today, greater than?50% of which was spent counseling/coordinating care. Reason for contiued inpatient stay Substantial Risk for: harm to others and rapid decompensation
[2022-04-29 17:49] LABS: Glucose, Whole Blood 597 mg/dL (60-115)
--- NOTE | 2022-04-29 18:14 | PC.NURSE ---
Addendum entered by Chastity Pérez RN 04/30/22 02:03: POC reassessed at [address] Pritchard aware. No additional coverage given. Addendum entered by Ruth Cadet RN 04/29/22 19:11: POC reassessed at 535, Dr. Pritchard aware and advised to administer another 10 units Lispro Original Note: POC was 597, Dr. Pritchard aware. RN administered 10 units as directed, will reassess in 20 mins.
[2022-04-29 18:51] LABS: Glucose, Whole Blood 535 mg/dL (60-115)
[2022-04-29] MEDS: Insulin Lispro 100 UNIT/ML 3 ML VIAL 10 UNIT SUBCUT (19:13)
[2022-04-29 19:52] LABS: Glucose, Whole Blood 463 mg/dL (60-115)
[2022-04-29 21:53] VITALS: BP 132/74; PULSE 98; RESP 18; O2SAT 97
[2022-04-29 21:54] LABS: Glucose, Whole Blood 328 mg/dL (60-115)
[2022-04-29] MEDS: HaloperidoL 5 MG TABLET 10 MG PO (22:00)
--- NOTE | 2022-04-30 02:05 | PC.NURSE ---
Pt POC was assessed at 2149 and was 328. Pt given HS Metformin 1000mg and coverage of 8 units of lispro.
[2022-04-30] MEDS: Nicotine Polacrilex 2 MG GUM 4 MG BUCCAL ×4 (07:54→16:49)
[2022-04-30 08:00] VITALS: BP 139/70; PULSE 98; TEMP 36.3; O2SAT 97
[2022-04-30] MEDS: lamoTRIgine 25 MG TABLET 50 MG PO (08:05)
[2022-04-30] MEDS: Gabapentin 300 MG CAPSULE PO ×2 (08:05→22:09)
[2022-04-30] MEDS: Atorvastatin Calcium 80 MG TABLET PO (08:06)
[2022-04-30] MEDS: metFORMIN HCl ER 500 MG TAB.ER.24H 1000 MG PO ×2 (08:06→22:09)
[2022-04-30] MEDS: buPROPion HCl XL 150 MG TAB.ER.24H PO (08:06)
[2022-04-30] MEDS: HaloperidoL 5 MG TABLET PO (08:07)
[2022-04-30] MEDS: Fenofibrate 54 MG TABLET PO (08:07)
[2022-04-30] MEDS: Omeprazole 20 MG CAPSULE.DR PO (08:07)
[2022-04-30] MEDS: Divalproex Sodium 500 MG TABLET.DR PO ×2 (08:07→22:24)
[2022-04-30] MEDS: Fluticasone/Vilanterol 100/25 BLST.W.DEV 1 PUFF INHALE (08:08)
[2022-04-30 09:07] LABS: Glucose, Whole Blood 548 mg/dL (60-115)
[2022-04-30] MEDS: Insulin Glargine,Hum.rec.anlog 100 UNIT/ML 10 ML VIAL SUBCUT (09:09)
[2022-04-30] MEDS: Insulin Lispro 100 UNIT/ML 3 ML VIAL SUBCUT ×4 (09:09→22:09)
[2022-04-30] MEDS: HaloperidoL 5 MG TABLET 10 MG PO ×2 (11:29→22:08)
[2022-04-30] MEDS: LORazepam 1 MG TABLET PO (11:29)
[2022-04-30 13:05] LABS: Glucose, Whole Blood 550 mg/dL (60-115)
--- NOTE | 2022-04-30 14:33 | HO.PSYCHPN ---
Subjective Subjective Date of Service: 04/30/22 Reason For Visit: SI/Aggression Interim History: calm, cooperative. reports his mood is improved and he is less labile/angry. states this has been tested by a loud and annoying roommate. using haldol PRNs to good effect that way. agreeable to check labs tuesday with plan to DC at that time. per staff, isolative, withdrawn. flat, guarded. napping. happier. slept past 11. attending most groups. Mental Status Exam Mental Status Exam Narrative: appropriately dressed and groomed. no PMA/PMR, cooperative. speech nml rate, amount, loudness. flattened tone, nml latency. thoughts linear and logical. affect flexible, normo-intense, non-labile. mood better and not angry. no SI/HI/AVH expressed. Diagnostics Vital Signs (24Hr): Vital Signs - 24 hr 04/29/22 21:53 04/30/22 08:00 Temperature 97.4 F Pulse Rate 98 98 Respiratory Rate 18 Blood Pressure 132/74 139/70 Pulse Oximetry 97 97 Oxygen Delivery Method Room Air Room Air BMI result Body Mass Index 48.2 Labs Results: 04/27/22 20:20 04/29/22 07:46 Labs: Laboratory Results - last 48 hr 04/28/22 04/28/22 04/28/22 17:49 21:48 21:50 Sodium Potassium Chloride Carbon Dioxide Anion Gap BUN Creatinine Estim Creat Clear Calc Estimated GFR POC Glucose 403 H* 575 H* 570 H* Fasting Glucose Estimat Average Glucose Hemoglobin A1c % Calcium Total Bilirubin Direct Bilirubin AST ALT Alkaline Phosphatase Total Protein Albumin Triglycerides Cholesterol LDL Cholesterol, Calc HDL Cholesterol Vitamin B12 Folate TSH 04/29/22 04/29/22 04/29/22 06:39 07:46 07:46 Sodium 137 Potassium 4.2 Chloride 100 Carbon Dioxide 22 Anion Gap 19 BUN 12 Creatinine 0.96 Estim Creat Clear Calc 180.3 Estimated GFR > 60 POC Glucose 301 H Fasting Glucose 500 H* Estimat Average Glucose TNP Hemoglobin A1c % > 14.0 Calcium 10.0 D Total Bilirubin 0.6 Direct Bilirubin 0.2 AST 11 ALT 16 Alkaline Phosphatase 97 Total Protein 6.8 Albumin 4.0 Triglycerides 429 Cholesterol 129 LDL Cholesterol, Calc TNP HDL Cholesterol 27 Vitamin B12 Folate TSH 1.62 04/29/22 04/29/22 04/29/22 07:46 08:47 12:31 Sodium Potassium Chloride Carbon Dioxide Anion Gap BUN Creatinine Estim Creat Clear Calc Estimated GFR POC Glucose 491 H* 396 H* Fasting Glucose Estimat Average Glucose Hemoglobin A1c % Calcium Total Bilirubin Direct Bilirubin AST ALT Alkaline Phosphatase Total Protein Albumin Triglycerides Cholesterol LDL Cholesterol, Calc HDL Cholesterol Vitamin B12 763 Folate 13.3 TSH 04/29/22 04/29/22 04/29/22 17:44 18:47 19:47 Sodium Potassium Chloride Carbon Dioxide Anion Gap BUN Creatinine Estim Creat Clear Calc Estimated GFR POC Glucose 597 H* 535 H* 463 H* Fasting Glucose Estimat Average Glucose Hemoglobin A1c % Calcium Total Bilirubin Direct Bilirubin AST ALT Alkaline Phosphatase Total Protein Albumin Triglycerides Cholesterol LDL Cholesterol, Calc HDL Cholesterol Vitamin B[address] [facility] 04/29/22 04/30/22 04/30/22 21:49 08:57 13:01 Sodium Potassium Chloride Carbon Dioxide Anion Gap BUN Creatinine Estim Creat Clear Calc Estimated GFR POC Glucose 328 H 548 H* 550 H* Fasting Glucose Estimat Average Glucose Hemoglobin A1c % Calcium Total Bilirubin Direct Bilirubin AST ALT Alkaline Phosphatase Total Protein Albumin Triglycerides Cholesterol LDL Cholesterol, Calc HDL Cholesterol Vitamin B12 Folate TSH Medications Medications Current Medications Acetaminophen (Acetaminophen 325 Mg Tablet) 650 mg PO Q6H PRN PRN Reason: Headache/Pain Mild Scale (1-3) Al Hydroxide/Mg Hydroxide (Magnesium Hydrox/Alum Hydrox 30 Ml Oral.Susp) 30 ml PO Q6H PRN PRN Reason: Heartburn/Nausea Atorvastatin Calcium (Atorvastatin Calcium 80 Mg Tablet) 80 mg PO DAILY [facility] Last Admin: 04/30/22 08:06 Dose: 80 mg Bupropion HCl (Bupropion Hcl Xl 150 Mg Tab.Er.24h) 150 mg PO DAILY [facility] Last Admin: 04/30/22 08:06 Dose: 150 mg Divalproex Sodium (Divalproex Sodium 500 Mg Tablet.Dr) 500 mg PO BID [facility] Last Admin: 04/30/22 08:07 Dose: 500 mg Fenofibrate (Fenofibrate 54 Mg Tablet) 54 mg PO DAILY [facility] Last Admin: 04/30/22 08:07 Dose: 54 mg Fluticasone/Vilanterol (Fluticasone/Vilanterol 100/25 Blst.W.Dev) 1 puff INHALE RDAILY [facility] Last Admin: 04/30/22 08:08 Dose: 1 puff Gabapentin (Gabapentin 300 Mg Capsule) 300 mg PO BID [facility] Last Admin: 04/30/22 08:05 Dose: 300 mg Glucose (Glucose Gel 15 Gm Gel..Gram.) 15 gm PO Q15M PRN; Protocol PRN Reason: per Hypoglycemia Standing Ord. Haloperidol (Haloperidol 5 Mg Tablet) 5 mg PO DAILY [facility] Last Admin: 04/30/22 08:07 Dose: 5 mg Haloperidol (Haloperidol 5 Mg Tablet) 10 mg PO BEDTIME [facility] Last Admin: 04/29/22 22:00 Dose: 10 mg Haloperidol (Haloperidol 5 Mg Tablet) 10 mg PO Q4H PRN PRN Reason: anger Last Admin: 04/30/22 11:29 Dose: 10 mg Hydroxyzine HCl (Hydroxyzine Hcl 25 Mg Tablet) 25 mg PO Q6H PRN PRN Reason: Anxiety Insulin Glargine (Insulin Glargine,Hum.Rec.Anlog 100 Unit/Ml 10 Ml Vial) 100 unit SUBCUT DAILY [facility] Last Admin: 04/30/22 09:09 Dose: 100 unit Insulin Human Lispro (Insulin Lispro 100 Unit/Ml 3 Ml Vial) 0 unit SUBCUT QIDACHS [facility]; Protocol Last Admin: 04/30/22 13:15 Dose: 10 unit Lamotrigine (Lamotrigine 25 Mg Tablet) 50 mg PO DAILY [facility] Last Admin: 04/30/22 08:05 Dose: 50 mg Lorazepam (Lorazepam 1 Mg Tablet) 1 mg PO BID PRN PRN Reason: anxiety Last Admin: 04/30/22 11:29 Dose: 1 mg Magnesium Hydroxide (Milk Of Magnesia 30 Ml Oral.Susp) 30 ml PO DAILY PRN PRN Reason: Constipation Metformin HCl (Metformin Hcl Er 500 Mg Tab.Er.24h) 1,000 mg PO BID [facility] Last Admin: 04/30/22 08:06 Dose: 1,000 mg Nicotine Polacrilex (Nicotine Polacrilex 2 Mg Gum) 4 mg BUCCAL Q2H PRN PRN Reason: Nicotine Cravings Last Admin: 04/30/22 13:42 Dose: 4 mg Omeprazole (Omeprazole 20 Mg Capsule.Dr) 20 mg PO DAILY@0630 [facility] Last Admin: 04/30/22 08:07 Dose: 20 mg Paliperidone Palmitate (Paliperidone Palmitate 234 Mg/1.5 Ml Syringe) 234 mg IM Q30D [facility] Trazodone HCl (Trazodone Hcl 50 Mg Tablet) 50 mg PO BEDTIME PRN PRN Reason: Insomnia Allergies Allergies Allergy/AdvReac Type Severity Reaction Status Date / Time No Known Allergies Allergy Verified 07/07/21 13:26 [No Known Allergies*] Assessment & Plan Assessment & Plan (1) Schizoaffective disorder, bipolar type: Status: Acute Code(s): F25.0 - Schizoaffective disorder, bipolar type (2) Borderline personality disorder in adult: Status: Acute Code(s): F60.3 - Borderline personality disorder (3) Diabetes type 2, uncontrolled: Qualifiers: Glycemic state: with hyperglycemia Qualified Code(s): E11.65 - Type 2 diabetes mellitus with hyperglycemia Status: Acute Code(s): E11.65 - Type 2 diabetes mellitus with hyperglycemia (4) Asthma: Status: Acute Code(s): J45.909 - Unspecified asthma, uncomplicated Plan 04/28: continue outpt meds aside from doubling VPA from 500 daily to 500 BID in order to address CC of anger. 04/29: tolerated VPA dose increase well, reports it calmed me down. continue current mgmt. plan to check VPA level tuesday morning with expectation to discharge after. 04/30: calm, cooperative. using haldol 10 mg PRNs, feeling they are very helpful along with the increased VPA dose. planning for labs and discharge tuesday. I spent ___25___ minutes with the patient and/or on the patient floor today, greater than?50% of which was spent counseling/coordinating care. Reason for contiued inpatient stay Substantial Risk for: inability to function and rapid decompensation
[2022-04-30 17:59] LABS: Glucose, Whole Blood > 600 mg/dL (60-115)
[2022-04-30] MEDS: Insulin Lispro 100 UNIT/ML 3 ML VIAL 15 UNIT SUBCUT (18:15)
[2022-04-30 19:07] LABS: Glucose, Whole Blood > 600 mg/dL (60-115)
--- NOTE | 2022-04-30 19:08 | PC.NURSE ---
RN assessed pt's POC prior to dinner, result was >600. RN administered 10 units per sliding scale then reached out to hospitalist Deanna Elizabeth. She placed an order for 15 units TIDWM scheduled in addition to sliding scale. RN reassessed POC at 1900 and sugar was still >600.
[2022-04-30 22:05] VITALS: BP 139/72; PULSE 95; RESP 18; TEMP 36.4; O2SAT 95
[2022-04-30 22:22] LABS: Glucose, Whole Blood 502 mg/dL (60-115)
--- NOTE | 2022-05-01 05:12 | PC.NURSE ---
Pt POC this evening was 502. Pt rec'd sliding scale coverage of 10 units of lispro. house calls nurse provider Saba notified, nothing additional ordered.
[2022-05-01] MEDS: Nicotine Polacrilex 2 MG GUM 4 MG BUCCAL (06:55)
[2022-05-01 08:13] LABS: Glucose, Whole Blood 507 mg/dL (60-115)
[2022-05-01] MEDS: Insulin Lispro 100 UNIT/ML 3 ML VIAL SUBCUT ×4 (08:49→21:27)
[2022-05-01] MEDS: Insulin Glargine,Hum.rec.anlog 100 UNIT/ML 10 ML VIAL SUBCUT (08:50)
[2022-05-01] MEDS: Insulin Lispro 100 UNIT/ML 3 ML VIAL 15 UNIT SUBCUT ×2 (08:50→13:07)
[2022-05-01] MEDS: Fenofibrate 54 MG TABLET PO (08:51)
[2022-05-01] MEDS: Omeprazole 20 MG CAPSULE.DR PO (08:51)
[2022-05-01] MEDS: metFORMIN HCl ER 500 MG TAB.ER.24H 1000 MG PO ×2 (08:51→21:26)
[2022-05-01] MEDS: lamoTRIgine 25 MG TABLET 50 MG PO (08:51)
[2022-05-01] MEDS: Atorvastatin Calcium 80 MG TABLET PO (08:51)
[2022-05-01] MEDS: HaloperidoL 5 MG TABLET PO (08:52)
[2022-05-01] MEDS: Gabapentin 300 MG CAPSULE PO ×2 (08:52→21:27)
[2022-05-01] MEDS: buPROPion HCl XL 150 MG TAB.ER.24H PO (08:52)
[2022-05-01] MEDS: Divalproex Sodium 500 MG TABLET.DR PO ×2 (08:52→21:27)
[2022-05-01] MEDS: Fluticasone/Vilanterol 100/25 BLST.W.DEV 1 PUFF INHALE (09:03)
[2022-05-01 09:04] VITALS: BP 131/63; PULSE 93; RESP 16; TEMP 36.6; O2SAT 97
[2022-05-01] MEDS: Insulin Lispro 100 UNIT/ML 3 ML VIAL 10 UNIT SUBCUT (09:28)
--- NOTE | 2022-05-01 10:59 | P.PNPSI_ITS ---
Subjective Subjective Date of Service: 05/01/22 Reason For Visit: SI/Aggression Subjective Notes: Conditional Voluntary Interim History: Pt seen by hospitalist, insulin adjust as BS as high as 600. Pt reports he will not adhere to a diabetic diet. In terms of mood, pt reports he is doing fine. He denies SI/HI. He is sleeping and eating well. He is social with peers. No behavioral concerns on the unit. He is looking forward to return home on Tuesday. Medication Compliance: Yes Side effects from medications: No Review of Systems Review of Systems Constitutional : No Fever, No Chills ENT/Mouth : No Ear Pain, No Nasal Congestion, No sore throat Eyes: No Eye Pain, No Swelling, No Redness Cardiovascular : No Chest Pain, No SOB Respiratory : No Cough, No Sputum, No Dyspnea Gastrointestinal : No Nausea, No Vomiting, No Diarrhea, No Hematochezia, No Melena Genitourinary : No Dysuria, No Urinary Frequency, No Hematuria Musculoskeletal : No Myalgias Skin : No Skin Lesions, No rash Neuro : No Weakness, No Numbness, No Paresthesias, No Dizziness, No Headache Psych : positive Anxiety, positive Depression, positive SI no HI Heme/Lymph: No Lymphadenopathy Endocrine : No Polyuria, No Polydipsia, pos elevated blood sugar All other systems reviewed and are negative Yes all other systems are reviewed and are negative Mental Status Exam Mental Status Exam Narrative: appropriately dressed and groomed. no PMA/PMR, cooperative. speech nml rate, amount, loudness. flattened tone, nml latency. thoughts linear and logical. affect flexible, normo-intense, non-labile. mood better and not angry. no SI/HI/AVH expressed. Diagnostics Vital Signs (24Hr): Vital Signs - 24 hr 05/02/22 08:12 05/02/22 21:30 Temperature 97.2 F Pulse Rate 104 H 91 Respiratory Rate 15 18 Blood Pressure 134/72 130/76 Pulse Oximetry 98 95 Oxygen Delivery Method Room Air Room Air BMI result Body Mass Index 48.2 Labs Results: 04/27/22 20:20 04/29/22 07:46 Labs: Laboratory Results - last 48 hr 05/01/22 05/01/22 05/01/22 08:06 11:58 17:17 POC Glucose 507 H* 479 H* 387 H* 10/05/02/22 05/02/22 21:11 08:39 12:15 POC Glucose 439 H* 395 H* 381 H* 05/02/22 05/02/22 17:13 21:32 POC Glucose 403 H* 432 H* Medications Medications Current Medications Acetaminophen (Acetaminophen 325 Mg Tablet) 650 mg PO Q6H PRN PRN Reason: Headache/Pain Mild Scale (1-3) Last Admin: 05/02/22 12:11 Dose: 650 mg Al Hydroxide/Mg Hydroxide (Magnesium Hydrox/Alum Hydrox 30 Ml Oral.Susp) 30 ml PO Q6H PRN PRN Reason: Heartburn/Nausea Atorvastatin Calcium (Atorvastatin Calcium 80 Mg Tablet) 80 mg PO DAILY [facility] Last Admin: 05/02/22 09:10 Dose: 80 mg Bupropion HCl (Bupropion Hcl Xl 150 Mg Tab.Er.24h) 150 mg PO DAILY [facility] Last Admin: 05/02/22 09:10 Dose: 150 mg Divalproex Sodium (Divalproex Sodium 500 Mg Tablet.Dr) 500 mg PO BID [facility] Last Admin: 05/02/22 21:40 Dose: 500 mg Fenofibrate (Fenofibrate 54 Mg Tablet) 54 mg PO DAILY [facility] Last Admin: 05/02/22 09:10 Dose: 54 mg Fluticasone/Vilanterol (Fluticasone/Vilanterol 100/25 Blst.W.Dev) 1 puff INHALE RDAILY [facility] Last Admin: 05/02/22 09:17 Dose: 1 puff Gabapentin (Gabapentin 300 Mg Capsule) 300 mg PO BID [facility] Last Admin: 05/02/22 21:39 Dose: 300 mg Glucose (Glucose Gel 15 Gm Gel..Gram.) 15 gm PO Q15M PRN; Protocol PRN Reason: per Hypoglycemia Standing Ord. Haloperidol (Haloperidol 5 Mg Tablet) 5 mg PO DAILY [facility] Last Admin: 05/02/22 09:09 Dose: 5 mg Haloperidol (Haloperidol 5 Mg Tablet) 10 mg PO BEDTIME [facility] Last Admin: 05/02/22 21:40 Dose: 10 mg Haloperidol (Haloperidol 5 Mg Tablet) 10 mg PO Q4H PRN PRN Reason: anger Last Admin: 05/01/22 15:06 Dose: 10 mg Hydroxyzine HCl (Hydroxyzine Hcl 25 Mg Tablet) 25 mg PO Q6H PRN PRN Reason: Anxiety Insulin Glargine (Insulin Glargine,Hum.Rec.Anlog 100 Unit/Ml 10 Ml Vial) 60 unit SUBCUT BID [facility] Last Admin: 05/02/22 21:40 Dose: 60 unit Insulin Human Lispro (Insulin Lispro 100 Unit/Ml 3 Ml Vial) 0 unit SUBCUT QIDACHS [facility]; Protocol Last Admin: 05/02/22 21:40 Dose: 10 unit Insulin Human Lispro (Insulin Lispro 100 Unit/Ml 3 Ml Vial) 20 unit SUBCUT T IDAC [facility] Last Admin: 05/02/22 17:33 Dose: 20 unit Lamotrigine (Lamotrigine 25 Mg Tablet) 50 mg PO DAILY [facility] Last Admin: 05/02/22 09:10 Dose: 50 mg Magnesium Hydroxide (Milk Of Magnesia 30 Ml Oral.Susp) 30 ml PO DAILY PRN PRN Reason: Constipation Metformin HCl (Metformin Hcl Er 500 Mg Tab.Er.24h) 1,000 mg PO BID [facility] Last Admin: 05/02/22 21:39 Dose: 1,000 mg Nicotine Polacrilex (Nicotine Polacrilex 2 Mg Gum) 4 mg BUCCAL Q2H PRN PRN Reason: Nicotine Cravings Last Admin: 05/02/22 12:07 Dose: 4 mg Omeprazole (Omeprazole 20 Mg Capsule.Dr) 20 mg PO DAILY@0630 [facility] Last Admin: 05/02/22 07:15 Dose: 20 mg Paliperidone Palmitate (Paliperidone Palmitate 234 Mg/1.5 Ml Syringe) 234 mg IM Q30D [facility] Sitagliptin Phosphate (Sitagliptin Phosphate 100 Mg Tablet) 100 mg PO DAILY [facility] Last Admin: 05/02/22 09:10 Dose: 100 mg Trazodone HCl (Trazodone Hcl 50 Mg Tablet) 50 mg PO BEDTIME PRN PRN Reason: Insomnia Allergies Allergies Allergy/AdvReac Type Severity Reaction Status Date / Time No Known Allergies Allergy Verified 07/07/21 13:26 [No Known Allergies*] Assessment & Plan Assessment & Plan (1) Diabetes type 2, uncontrolled: Qualifiers: Glycemic state: with hyperglycemia Qualified Code(s): E11.65 - Type 2 diabetes mellitus with hyperglycemia Status: Acute Code(s): E11.65 - Type 2 diabetes mellitus with hyperglycemia (2) Borderline personality disorder in adult: Status: Acute Code(s): F60.3 - Borderline personality disorder Plan Medical: Per hospitalist-->diabetes mellitus uncontrolled on insulin Poorly controlled hemoglobin A1c 14 Blood sugars elevated 500-600 range Patient asymptomatic Reviewed home medications currently on 100 units of Lantus and metformin 1000 mg b.i.d. Added Humalog 15 units pre meals yesterday but blood sugars remain elevated therefore will increase dose of Humalog to 20 units t.i.d., add Januvia 100 mg daily will monitor closely for hypoglycemia Patient should not be allowed food greater than 1800 calorie/do not allow outside food, no chips, no extra sugary drinks, patient should strictly follow with diabetic diet. PSYCH: 05/01 continue current tx. I spent minutes with the patient and/or on the patient floor today, greater than?50% of which was spent counseling/coordinating care. Reason for contiued inpatient stay Substantial Risk for: stable for discharge
[2022-05-01 12:03] LABS: Glucose, Whole Blood 479 mg/dL (60-115)
--- NOTE | 2022-05-01 14:54 | P.PNIM_ITS ---
Subjective Subjective Date of Service: 05/01/22 Interval History: Called in by psych for elevated blood sugars, patient denies symptoms of nausea, vomiting, abdominal pain, no urinary frequency ,he is admitting that he is hungry all the time, he does not want his medications to be adjusted since he is leaving on Tuesday and has an outpatient appointment with his PCP, he admits to have poor blood sugar control at home. Review of Systems Review of Systems: Yes all other systems are reviewed and are negative Physical Exam Vital Signs: Vital Signs: Last Vital Signs Temp 97.8 F 05/01/22 09:04 Pulse 93 05/01/22 09:04 Resp 16 05/01/22 09:04 BP 131/63 05/01/22 09:04 Pulse Ox 97 05/01/22 09:04 O2 Del Method 05/01/22 09:04 BMI result Body Mass Index 48.2 Const: Other: General awake alert, morbidly obese, in no acute distress. Neck supple, no JVD. CVS regular rate rhythm, Respiratory lungs clear to auscultation, no respiratory distress Gastrointestinal abdomen soft, obese, Extremities no pitting edema. Neuro nonfocal patient moving all 4 extremity speech clear. Objective Data Active Medications Acetaminophen (Acetaminophen 325 Mg Tablet) 650 mg PO Q6H PRN PRN Reason: Headache/Pain Mild Scale (1-3) Al Hydroxide/Mg Hydroxide (Magnesium Hydrox/Alum Hydrox 30 Ml Oral.Susp) 30 ml PO Q6H PRN PRN Reason: Heartburn/Nausea Atorvastatin Calcium (Atorvastatin Calcium 80 Mg Tablet) 80 mg PO DAILY [facility] Last Admin: 05/01/22 08:51 Dose: 80 mg Documented By: TYREL Bupropion HCl (Bupropion Hcl Xl 150 Mg Tab.Er.24h) 150 mg PO DAILY [facility] Last Admin: 05/01/22 08:52 Dose: 150 mg Documented By: TYREL Divalproex Sodium (Divalproex Sodium 500 Mg Tablet.) 500 mg PO BID [facility] Last Admin: 05/01/22 08:52 Dose: 500 mg Documented By: TYREL Fenofibrate (Fenofibrate 54 Mg Tablet) 54 mg PO DAILY [facility] Last Admin: 05/01/22 08:51 Dose: 54 mg Documented By: TYREL Fluticasone/Vilanterol (Fluticasone/Vilanterol 100/25 Blst.W.Dev) 1 puff INHALE RDAILY [facility] Last Admin: 05/01/22 09:03 Dose: 1 puff Documented By: TYREL Gabapentin (Gabapentin 300 Mg Capsule) 300 mg PO BID [facility] Last Admin: 05/01/22 08:52 Dose: 300 mg Documented By: TYREL Glucose (Glucose Gel 15 Gm Gel..Gram.) 15 gm PO Q15M PRN; Protocol PRN Reason: per Hypoglycemia Standing Ord. Haloperidol (Haloperidol 5 Mg Tablet) 5 mg PO DAILY [facility] Last Admin: 05/01/22 08:52 Dose: 5 mg Documented By: TYREL Haloperidol (Haloperidol 5 Mg Tablet) 10 mg PO BEDTIME [facility] Last Admin: 04/30/22 22:08 Dose: 10 mg Documented By: RABIA Haloperidol (Haloperidol 5 Mg Tablet) 10 mg PO Q4H PRN PRN Reason: anger Last Admin: 04/30/22 11:29 Dose: 10 mg Documented By: NATALIE Hydroxyzine HCl (Hydroxyzine Hcl 25 Mg Tablet) 25 mg PO Q6H PRN PRN Reason: Anxiety Insulin Glargine (Insulin Glargine,Hum.Rec.Anlog 100 Unit/Ml 10 Ml Vial) 20 unit SUBCUT ONCE@2100 ONE Stop: 05/01/22 21:01 Insulin Glargine (Insulin Glargine,Hum.Rec.Anlog 100 Unit/Ml 10 Ml Vial) 60 unit SUBCUT BID [facility] Insulin Human Lispro (Insulin Lispro 100 Unit/Ml 3 Ml Vial) 0 unit SUBCUT QIDACHS [facility]; Protocol Last Admin: 05/01/22 13:08 Dose: 10 unit Documented By: TYREL Insulin Human Lispro (Insulin Lispro 100 Unit/Ml 3 Ml Vial) 15 unit SUBCUT TIDWM [facility] Last Admin: 05/01/22 13:07 Dose: 15 unit Documented By: TYREL Lamotrigine (Lamotrigine 25 Mg Tablet) 50 mg PO DAILY [facility] Last Admin: 05/01/22 08:51 Dose: 50 mg Documented By: TYREL Lorazepam (Lorazepam 1 Mg Tablet) 1 mg PO BID PRN PRN Reason: anxiety Last Admin: 04/30/22 11:29 Dose: 1 mg Magnesium Hydroxide (Milk Of Magnesia 30 Ml Oral.Susp) 30 ml PO DAILY PRN PRN Reason: Constipation Metformin HCl (Metformin Hcl Er 500 Mg Tab.Er.24h) 1,000 mg PO BID [facility] Last Admin: 05/01/22 08:51 Dose: 1,000 mg Documented By: TYREL Nicotine Polacrilex (Nicotine Polacrilex 2 Mg Gum) 4 mg BUCCAL Q2H PRN PRN Reason: Nicotine Cravings Last Admin: 05/01/22 06:55 Dose: 4 mg Documented By: CONNER Omeprazole (Omeprazole 20 Mg Capsule.Dr) 20 mg PO DAILY@0630 [facility] Last Admin: 05/01/22 08:51 Dose: 20 mg Documented By: TYREL Paliperidone Palmitate (Paliperidone Palmitate 234 Mg/1.5 Ml Syringe) 234 mg IM Q30D [facility] Trazodone HCl (Trazodone Hcl 50 Mg Tablet) 50 mg PO BEDTIME PRN PRN Reason: Insomnia Labs CBC & Chem 7: 04/27/22 20:20 04/29/22 07:46 Labs: Laboratory Results - last 24 hr 04/30/22 04/30/22 04/30/22 17:48 19:03 22:14 POC Glucose > 600 H* > 600 H* 502 H* 05/01/22 05/01/22 08:06 11:58 POC Glucose 507 H* 479 H* Assessment and Plan (1) Diabetes type 2, uncontrolled: Status: Acute Plan diabetes mellitus uncontrolled on insulin Poorly controlled hemoglobin A1c 14 Blood sugars elevated 500-600 range Patient asymptomatic Reviewed home medications currently on 100 units of Lantus and metformin 1000 mg b.i.d. Added Humalog 15 units pre meals yesterday but blood sugars remain elevated therefore will increase dose of Humalog to 20 units t.i.d., add Januvia 100 mg daily will monitor closely for hypoglycemia Patient should not be allowed food greater than 1800 calorie/do not allow outside food, no chips, no extra sugary drinks, patient should strictly follow with diabetic diet. Quality Stroke Does the patient have a stroke diagnosis?: No VTE Prior VTE?: No VTE Risk Level:: Medical - low VTE Device Contraindication: Treatment Not Indicated VTE Drug Contraindication: Treatment Not Indicated
[2022-05-01] MEDS: HaloperidoL 5 MG TABLET 10 MG PO ×2 (15:06→21:27)
[2022-05-01] MEDS: LORazepam 1 MG TABLET PO (15:06)
[2022-05-01] MEDS: SITagliptin Phosphate 100 MG TABLET PO (16:55)
[2022-05-01 17:21] LABS: Glucose, Whole Blood 387 mg/dL (60-115)
[2022-05-01] MEDS: Insulin Lispro 100 UNIT/ML 3 ML VIAL 20 UNIT SUBCUT (18:36)
[2022-05-01 21:15] VITALS: BP 134/76; PULSE 83; RESP 18; TEMP 36.7; O2SAT 95
[2022-05-01 21:16] LABS: Glucose, Whole Blood 439 mg/dL (60-115)
[2022-05-01] MEDS: Insulin Glargine,Hum.rec.anlog 100 UNIT/ML 10 ML VIAL 20 UNIT SUBCUT (21:28)
--- NOTE | 2022-05-02 01:13 | PC.NURSE ---
Pt's POC was 439 this evening. Administered sliding scale coverage of 10 units lispro and 20 units of lantus as ordered. guest specialist provider Bubba notified of POC and no additional orders given.
[2022-05-02] MEDS: Omeprazole 20 MG CAPSULE.DR PO (07:15)
[2022-05-02] MEDS: Nicotine Polacrilex 2 MG GUM 4 MG BUCCAL ×2 (07:15→12:07)
[2022-05-02 08:12] VITALS: BP 134/72; PULSE 104; RESP 15; TEMP 36.2; O2SAT 98
[2022-05-02 08:52] LABS: Glucose, Whole Blood 395 mg/dL (60-115)
--- NOTE | 2022-05-02 09:03 | P.PNPSI_ITS ---
Subjective Subjective Date of Service: 05/02/22 Reason For Visit: SI/Aggression Subjective Notes: Conditional Voluntary Interim History: Pt continues to reports he is doing fine. He denies SI/HI. He is sleeping and eating well. He is social with peers. No behavioral concerns on the unit. He is looking forward to return home on Tuesday. Review of Systems Review of Systems Constitutional : No Fever, No Chills ENT/Mouth : No Ear Pain, No Nasal Congestion, No sore throat Eyes: No Eye Pain, No Swelling, No Redness Cardiovascular : No Chest Pain, No SOB Respiratory : No Cough, No Sputum, No Dyspnea Gastrointestinal : No Nausea, No Vomiting, No Diarrhea, No Hematochezia, No Melena Genitourinary : No Dysuria, No Urinary Frequency, No Hematuria Musculoskeletal : No Myalgias Skin : No Skin Lesions, No rash Neuro : No Weakness, No Numbness, No Paresthesias, No Dizziness, No Headache Psych : positive Anxiety, positive Depression, positive SI no HI Heme/Lymph: No Lymphadenopathy Endocrine : No Polyuria, No Polydipsia, pos elevated blood sugar All other systems reviewed and are negative Yes all other systems are reviewed and are negative Mental Status Exam Mental Status Exam Narrative: appropriately dressed and groomed. no PMA/PMR, cooperative. speech nml rate, amount, loudness. flattened tone, nml latency. thoughts linear and logical. affect flexible, normo-intense, non-labile. mood better and not angry. no SI/HI/AVH expressed. Diagnostics Vital Signs (24Hr): Vital Signs - 24 hr 05/02/22 08:12 05/02/22 21:30 Temperature 97.2 F Pulse Rate 104 H 91 Respiratory Rate 15 18 Blood Pressure 134/72 130/76 Pulse Oximetry 98 95 Oxygen Delivery Method Room Air Room Air BMI result Body Mass Index 48.2 Labs Results: 04/27/22 20:20 04/29/22 07:46 Labs: Laboratory Results - last 48 hr 05/01/22 05/01/22 05/01/22 08:06 11:58 17:17 POC Glucose 507 H* 479 H* 387 H* 05/01/22 05/02/22 05/02/22 21:11 08:39 12:15 POC Glucose 439 H* 395 H* 381 H* 05/02/22 05/02/22 17:13 21:32 POC Glucose 403 H* 432 H* Medications Medications Current Medications Acetaminophen (Acetaminophen 325 Mg Tablet) 650 mg PO Q6H PRN PRN Reason: Headache/Pain Mild Scale (1-3) Last Admin: 05/02/22 12:11 Dose: 650 mg Al Hydroxide/Mg Hydroxide (Magnesium Hydrox/Alum Hydrox 30 Ml Oral.Susp) 30 ml PO Q6H PRN PRN Reason: Heartburn/Nausea Atorvastatin Calcium (Atorvastatin Calcium 80 Mg Tablet) 80 mg PO DAILY [facility] Last Admin: 05/02/22 09:10 Dose: 80 mg Bupropion HCl (Bupropion Hcl Xl 150 Mg Tab.Er.24h) 150 mg PO DAILY [facility] Last Admin: 05/02/22 09:10 Dose: 150 mg Divalproex Sodium (Divalproex Sodium 500 Mg Tablet.Dr) 500 mg PO BID [facility] Last Admin: 05/02/22 21:40 Dose: 500 mg Fenofibrate (Fenofibrate 54 Mg Tablet) 54 mg PO DAILY [facility] Last Admin: 05/02/22 09:10 Dose: 54 mg Fluticasone/Vilanterol (Fluticasone/Vilanterol 100/25 Blst.W.Dev) 1 puff INHALE RDAILY [facility] Last Admin: 05/02/22 09:17 Dose: 1 puff Gabapentin (Gabapentin 300 Mg Capsule) 300 mg PO BID [facility] Last Admin: 05/02/22 21:39 Dose: 300 mg Glucose (Glucose Gel 15 Gm Gel..Gram.) 15 gm PO Q15M PRN; Protocol PRN Reason: per Hypoglycemia Standing Ord. Haloperidol (Haloperidol 5 Mg Tablet) 5 mg PO DAILY [facility] Last Admin: 05/02/22 09:09 Dose: 5 mg Haloperidol (Haloperidol 5 Mg Tablet) 10 mg PO BEDTIME [facility] Last Admin: 05/02/22 21:40 Dose: 10 mg Haloperidol (Haloperidol 5 Mg Tablet) 10 mg PO Q4H PRN PRN Reason: anger Last Admin: 05/01/22 15:06 Dose: 10 mg Hydroxyzine HCl (Hydroxyzine Hcl 25 Mg Tablet) 25 mg PO Q6H PRN PRN Reason: Anxiety Insulin Glargine (Insulin Glargine,Hum.Rec.Anlog 100 Unit/Ml 10 Ml Vial) 60 unit SUBCUT BID [facility] Last Admin: 10/30/22 21:40 Dose: 60 unit Insulin Human Lispro (Insulin Lispro 100 Unit/Ml 3 Ml Vial) 0 unit SUBCUT QIDACHS [facility]; Protocol Last Admin: 05/02/22 21:40 Dose: 10 unit Insulin Human Lispro (Insulin Lispro 100 Unit/Ml 3 Ml Vial) 20 unit SUBCUT TIDAC [facility] Last Admin: 05/02/22 17:33 Dose: 20 unit Lamotrigine (Lamotrigine 25 Mg Tablet) 50 mg PO DAILY [facility] Last Admin: 05/02/22 09:10 Dose: 50 mg Magnesium Hydroxide (Milk Of Magnesia 30 Ml Oral.Susp) 30 ml PO DAILY PRN PRN Reason: Constipation Metformin HCl (Metformin Hcl Er 500 Mg Tab.Er.24h) 1,000 mg PO BID [facility] Last Admin: 05/02/22 21:39 Dose: 1,000 mg Nicotine Polacrilex (Nicotine Polacrilex 2 Mg Gum) 4 mg BUCCAL Q2H PRN PRN Reason: Nicotine Cravings Last Admin: 05/02/22 12:07 Dose: 4 mg Omeprazole (Omeprazole 20 Mg Capsule.Dr) 20 mg PO DAILY@0630 [facility] Last Admin: 05/02/22 07:15 Dose: 20 mg Paliperidone Palmitate (Paliperidone Palmitate 234 Mg/1.5 Ml Syringe) 234 mg IM Q30D [facility] Sitagliptin Phosphate (Sitagliptin Phosphate 100 Mg Tablet) 100 mg PO DAILY [facility] Last Admin: 05/02/22 09:10 Dose: 100 mg Trazodone HCl (Trazodone Hcl 50 Mg Tablet) 50 mg PO BEDTIME PRN PRN Reason: Insomnia Allergies Allergies Allergy/AdvReac Type Severity Reaction Status Date / Time No Known Allergies Allergy Verified 07/07/21 13:26 [No Known Allergies*] Assessment & Plan Assessment & Plan (1) Diabetes type 2, uncontrolled: Qualifiers: Glycemic state: with hyperglycemia Qualified Code(s): E11.65 - Type 2 diabetes mellitus with hyperglycemia Status: Acute Code(s): E11.65 - Type 2 diabetes mellitus with hyperglycemia (2) Borderline personality disorder in adult: Status: Acute Code(s): F60.3 - Borderline personality disorder Plan Medical: Per hospitalist-->diabetes mellitus uncontrolled on insulin Poorly controlled hemoglobin A1c 14 Blood sugars elevated 500-600 range Patient asymptomatic Reviewed home medications currently on 100 units of Lantus and metformin 1000 mg b.i.d. Added Humalog 15 units pre meals yesterday but blood sugars remain elevated therefore will increase dose of Humalog to 20 units t.i.d., add Januvia 100 m g daily will monitor closely for hypoglycemia Patient should not be allowed food greater than 1800 calorie/do not allow outside food, no chips, no extra sugary drinks, patient should strictly follow with diabetic diet. PSYCH: 05/01 continue current tx. 05/02 continue tx. I spent minutes with the patient and/or on the patient floor today, greater than?50% of which was spent counseling/coordinating care. Reason for contiued inpatient stay Substantial Risk for: stable for discharge
[2022-05-02] MEDS: Gabapentin 300 MG CAPSULE PO ×2 (09:09→21:39)
[2022-05-02] MEDS: HaloperidoL 5 MG TABLET PO (09:09)
[2022-05-02] MEDS: Fenofibrate 54 MG TABLET PO (09:10)
[2022-05-02] MEDS: Divalproex Sodium 500 MG TABLET.DR PO ×2 (09:10→21:40)
[2022-05-02] MEDS: SITagliptin Phosphate 100 MG TABLET PO (09:10)
[2022-05-02] MEDS: Atorvastatin Calcium 80 MG TABLET PO (09:10)
[2022-05-02] MEDS: lamoTRIgine 25 MG TABLET 50 MG PO (09:10)
[2022-05-02] MEDS: buPROPion HCl XL 150 MG TAB.ER.24H PO (09:10)
[2022-05-02] MEDS: Insulin Lispro 100 UNIT/ML 3 ML VIAL 20 UNIT SUBCUT ×3 (09:11→17:33)
[2022-05-02] MEDS: Insulin Lispro 100 UNIT/ML 3 ML VIAL SUBCUT ×4 (09:11→21:40)
[2022-05-02] MEDS: Insulin Glargine,Hum.rec.anlog 100 UNIT/ML 10 ML VIAL 60 UNIT SUBCUT ×2 (09:12→21:40)
[2022-05-02] MEDS: Fluticasone/Vilanterol 100/25 BLST.W.DEV 1 PUFF INHALE (09:17)
[2022-05-02] MEDS: metFORMIN HCl ER 500 MG TAB.ER.24H 1000 MG PO ×2 (09:18→21:39)
[2022-05-02] MEDS: Acetaminophen 325 MG TABLET 650 MG PO (12:11)
[2022-05-02 12:21] LABS: Glucose, Whole Blood 381 mg/dL (60-115)
[2022-05-02 17:17] LABS: Glucose, Whole Blood 403 mg/dL (60-115)
[2022-05-02 21:30] VITALS: BP 130/76; PULSE 91; RESP 18; O2SAT 95
[2022-05-02 21:39] LABS: Glucose, Whole Blood 432 mg/dL (60-115)
[2022-05-02] MEDS: HaloperidoL 5 MG TABLET 10 MG PO (21:40)
[2022-05-03 08:19] VITALS: BP 126/78; PULSE 95; RESP 16; TEMP 36.3
[2022-05-03 08:19] LABS: Glucose, Whole Blood 413 mg/dL (60-115)
[2022-05-03] MEDS: lamoTRIgine 25 MG TABLET 50 MG PO (08:23)
[2022-05-03] MEDS: SITagliptin Phosphate 100 MG TABLET PO (08:23)
[2022-05-03] MEDS: Fluticasone/Vilanterol 100/25 BLST.W.DEV 1 PUFF INHALE (08:23)
[2022-05-03] MEDS: metFORMIN HCl ER 500 MG TAB.ER.24H 1000 MG PO (08:23)
[2022-05-03] MEDS: Nicotine Polacrilex 2 MG GUM 4 MG BUCCAL (08:23)
[2022-05-03] MEDS: Atorvastatin Calcium 80 MG TABLET PO (08:24)
[2022-05-03] MEDS: Divalproex Sodium 500 MG TABLET.DR PO (08:24)
[2022-05-03] MEDS: Fenofibrate 54 MG TABLET PO (08:24)
[2022-05-03] MEDS: Gabapentin 300 MG CAPSULE PO (08:24)
[2022-05-03] MEDS: buPROPion HCl XL 150 MG TAB.ER.24H PO (08:24)
[2022-05-03] MEDS: HaloperidoL 5 MG TABLET PO (08:24)
[2022-05-03] MEDS: Omeprazole 20 MG CAPSULE.DR PO (08:25)
[2022-05-03 08:36] LABS: MANUAL DIFF FLAG NO
[2022-05-03 08:41] LABS: Basophils Absolute Auto 0.1 X10*3/uL (0.0-0.2); Basophils Percent Auto 0.5 % (0-2); Eosinophils Absolute Auto 0.2 X10*3/uL (0.0-0.4); Eosinophils Percent Auto 2.3 % (0-4); Hematocrit 46.3 % (42.0-52.0); Hemoglobin 15.7 g/dl (14.0-18.0); Imm Gran Abs Auto 0.07 X10*3/uL (0.00-0.03); Imm Gran Pct Auto 0.7 % (0.0-0.4); Lymphocytes Percent Auto 30.7 % (20-40); Mean Corpuscular HGB Conc 33.9 g/dl (31.0-36.0); Mean Corpuscular Hemoglobin 29.3 pg (27.0-33.0); Mean Corpuscular Volume 86.5 fL (80.0-98.0); Mean Platelet Volume 11.2 fL (9.4-12.4); Monocytes Percent Auto 9.8 % (2-11); Neutrophils Absolute Auto 5.5 x10*3/uL (2.0-8.3); Platelet Count 208 X10*3/uL (160-400); Red Blood Count 5.35 X10*6/uL (4.60-5.80); Red Cell Distribution Width 12.1 % (11.0-16.0); White Blood Count 9.7 X10*3/uL (4.8-10.8)
[2022-05-03] MEDS: Insulin Lispro 100 UNIT/ML 3 ML VIAL 20 UNIT SUBCUT (09:07)
[2022-05-03] MEDS: Insulin Lispro 100 UNIT/ML 3 ML VIAL SUBCUT (09:07)
[2022-05-03 09:08] LABS: Alanine Aminotransferase 19 U/L (0-40); Albumin Level 3.8 g/dL (3.5-5.0); Alkaline Phosphatase 100 U/L (39-117); Anion Gap 17 (12-20); Aspartate Amino Transferase 12 U/L (5-37); Bilirubin Direct 0.2 mg/dL (0.0-0.5); Bilirubin Total 0.3 mg/dL (0.0-1.0); Blood Urea Nitrogen 14 mg/dL (9-16); Calcium 9.5 mg/dL (8.4-10.2); Carbon Dioxide 21 mmol/L (22-29); Chloride 101 mmol/L (96-108); Creatinine Clr Calc Pharmacy 145.4; Estimated Glomerular Filt Rate > 60; Glucose Random 485 mg/dL (60-115); Potassium 4.4 mmol/L (3.3-5.1); Sodium 135 mmol/L (135-145); Total Protein 6.3 g/dL (6.5-8.0)
[2022-05-03] MEDS: Insulin Glargine,Hum.rec.anlog 100 UNIT/ML 10 ML VIAL 60 UNIT SUBCUT (09:08)
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
--- NOTE | 2022-05-03 10:58 | PC.NURSE ---
Patient is A & Ox4. Patient reports being ready for discharge. Currently denies SI/HI/AH/VH. Declined to review and sign discharge paperwork. Reports he is looking forward to his eye doctors appointment at 1500 today.
== END 2022-05-03 10:50 | disposition home or self-care (01) | DRG 750 ==
LOC: HO.ED 19:21 → HO.PADLT16 04-28 10:28
PROVIDERS: Admitting Provider Psychiatry & Neurology Psychiatry; Emergency Provider Emergency Medicine; PCP General Practice; Visit Provider Psychiatry & Neurology Psychiatry
DX: F25.0 Schizoaffective disorder, bipolar type (principal); R45.851 Suicidal ideations; R45.850 Homicidal ideations; F60.3 Borderline personality disorder; E11.65 Type 2 diabetes mellitus with hyperglycemia; J45.909 Unspecified asthma, uncomplicated; F17.210 Nicotine dependence, cigarettes, uncomplicated; F43.10 Post-traumatic stress disorder, unspecified; Z20.822 Contact with and (suspected) exposure to COVID-19; Z71.6 Tobacco abuse counseling; Z79.4 Long term (current) use of insulin; Z79.84 Long term (current) use of oral hypoglycemic drugs; Z79.899 Other long term (current) drug therapy
CPT/HCPCS: 36415; 80048; 80053; 80061; 80076; 80164; 80307; 82009; 82607; 82746; 82947; 83036; 84443; 85025; 87635; 99285

== ENCOUNTER 2022-05-11 13:55 | Outpatient (REF) | payer MEDICAID, SELFPAY ==
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
== END 2022-05-11 13:56 | disposition home or self-care (01) ==
LOC: HO.XRAY 13:55
PROVIDERS: PCP General Practice; Visit Provider Family Medicine
DX: M25.562 Pain in left knee (principal)
CPT/HCPCS: 73562

== ENCOUNTER 2022-06-13 04:13 | Emergency (ER) | payer MEDICAID, SELFPAY ==
--- NOTE | ~2022-06-13 | XR_ITS ---
EXAMINATION: XR CHEST CLINICAL INFORMATION: Chest pain. COMPARISON: Chest radiograph 07/23/2019. TECHNIQUE: Frontal view of the chest was obtained. FINDINGS: Normal appearance of the cardiomediastinal structures. No effusions or pneumothoraces. No focal pulmonary consolidation. Normal pattern of pulmonary vasculature. Low lung volumes with the fourth anterior rib segments terminating projection with the lung bases. XR/XR chest 1V IMPRESSION: Low lung volumes; otherwise, normal chest. Lungs clear.
[2022-06-13 04:24] VITALS: BP 134/76; PULSE 100; PULSE 80; RESP 16; O2SAT 96; O2SAT 99; BMI 51.3
[2022-06-13 04:29] VITALS: BP 117/63; PULSE 101; PULSE 99; RESP 22; O2SAT 95
--- NOTE | 2022-06-13 04:31 | ECG_ITS ---
Test Reason : CHEST PAIN Blood Pressure : / mmHG Vent. Rate : 097 BPM Atrial Rate : 097 BPM P-R Int : 148 ms QRS Dur : 078 ms QT Int : 312 ms P-R-T Axes : 039 042 052 degrees QTc Int : 396 ms Normal sinus rhythm Nonspecific T wave abnormality Abnormal ECG When compared with ECG of 05-NOV-2021 14:52, No significant change was found Referred By: Generic ED Physician Electronically Signed By:ANIVAL MOROCHO MD
--- NOTE | 2022-06-13 04:33 | PC.NURSE ---
Pt complaining of chest pain when he breathes in, stating he feels like someone is ripping his lungs out of his chest. Pt does have some cough with it. Symptoms have lasted one day. Pt is A&Ox4, resting comfortably. Vital signs are all stable. EKG has been taken and protocol orders are in.
[2022-06-13 04:49] LABS: Basophils Percent Auto 0.4 % (0-2); Eosinophils Absolute Auto 0.1 X10*3/uL (0.0-0.4); Eosinophils Percent Auto 1.5 % (0-4); Hematocrit 47.2 % (42.0-52.0); Hemoglobin 16.3 g/dl (14.0-18.0); Imm Gran Abs Auto 0.04 X10*3/uL (0.00-0.03); Imm Gran Pct Auto 0.5 % (0.0-0.4); Lymphocytes Absolute Auto 1.2 X10*3/uL (1.2-4.9); Lymphocytes Percent Auto 16.4 % (20-40); MANUAL DIFF FLAG NO; Mean Corpuscular HGB Conc 34.5 g/dl (31.0-36.0); Mean Corpuscular Hemoglobin 28.8 pg (27.0-33.0); Mean Corpuscular Volume 83.4 fL (80.0-98.0); Mean Platelet Volume 11.1 fL (9.4-12.4); Monocytes Percent Auto 13.1 % (2-11); Neutrophils Percent Auto 68.1 % (45-73); Platelet Count 174 X10*3/uL (160-400); Red Blood Count 5.66 X10*6/uL (4.60-5.80); Red Cell Distribution Width 11.7 % (11.0-16.0); White Blood Count 7.4 X10*3/uL (4.8-10.8)
[2022-06-13 05:13] LABS: Troponin-I High Sensitivity < 3.5 ng/L (<3.5-35.0)
[2022-06-13 05:45] LABS: Anion Gap 15 (12-20); Blood Urea Nitrogen 9 mg/dL (9-16); Calcium 9.6 mg/dL (8.4-10.2); Carbon Dioxide 22 mmol/L (22-29); Chloride 103 mmol/L (96-108); Creatinine Clr Calc Pharmacy 160.4; Estimated Glomerular Filt Rate > 60; Glucose Random 438 mg/dL (60-115); Potassium 3.9 mmol/L (3.3-5.1); Sodium 136 mmol/L (135-145)
[2022-06-13 05:51] VITALS: BP 103/43; PULSE 88; RESP 21; TEMP 36.7; O2SAT 97
[2022-06-13 06:09] LABS: Influenza A PCR POSITIVE (Negative); Influenza B PCR NEGATIVE (Negative); Resp Syncy Virus RNA Qual PCR NEGATIVE (Negative); SARS COV2 PCR INHOUSE NEGATIVE (Negative)
--- NOTE | 2022-06-13 06:26 | ED_ITS ---
HPI - Chest Pain General Chief Complaint: Chest Pain Stated Complaint: Cough Time Seen by Provider: 06/13/22 06:25 Source: patient Mode of arrival: ambulatory Limitations: no limitations History of Present Illness HPI narrative: 22-year-old male who presents emergency department for evaluation feeling ill for 1 day with flu-like symptoms. Patient states that he has a dry nonproductive cough, chills but no fever, pain in his lungs when he coughs but no chest pain with breathing. He denies shortness of breath or dyspnea on exertion. He denies nausea or vomiting. He states he has had diarrhea for 3 days which she describes as loose, watery stool with no blood in his stool, he complains of myalgias and arthralgias. Patient does have diabetes and he states that he has been compliant with his medications. States however that his diabetes is often out control. Related Data Home Medications Medication Instructions Recorded Confirmed budesonide-formoterol HFA 80 2 puff PO BID 02/24/22 04/27/22 mcg-4.5 mcg/actuation aerosol inhaler (Symbicort) bupropion HCl 150 mg 24 hr tablet, 1 tab PO DAILY 02/24/22 04/27/22 extended release fenofibrate micronized 43 mg 1 cap PO DAILY 02/24/22 04/27/22 capsule metformin 500 mg tablet,extended 2 tab PO BID 02/24/22 04/27/22 release 24 hr omeprazole 20 mg capsule,delayed 1 cap PO DAILY 02/24/22 04/27/22 release rosuvastatin 20 mg tablet 1 tab PO DAILY 02/24/22 04/27/22 dulaglutide 0.75 mg/0.5 mL 0.75 mg subcut QWEEK 04/27/22 04/27/22 subcutaneous pen injector (Trulicity) haloperidol 5 mg tablet 5 mg PO QAM 04/27/22 04/27/22 insulin degludec 200 unit/mL (3 160 unit subcut DAILY 04/27/22 04/27/22 mL) subcutaneous pen (Tresiba FlexTouch U-200 insulin) insulin lispro 100 unit/mL 0 - 100 unit subcut DAILY 04/27/22 04/27/22 subcutaneous pen (Humalog KwikPen (U-100) Insulin) lamotrigine 25 mg tablet 2 tab PO DAILY 04/27/22 04/27/22 lorazepam 1 mg tablet 1 tab PO BID PRN anxiety 04/27/22 04/27/22 Previous Rx's Medication Instructions Recorded gabapentin 300 mg capsule 1 cap PO BID #60 caps 03/09/22 haloperidol 5 mg tablet 10 mg PO BEDTIME #60 tabs 03/09/22 paliperidone palmitate 234 mg/1.5 234 mg (1.5 mL) IM Q30D #0 mL 03/09/22 mL intramuscular syringe (Invega Sustenna) divalproex 500 mg tablet,delayed 500 mg PO BID 30 days #60 tabs 05/03/22 release haloperidol 5 mg tablet 10 mg PO BID PRN anger 30 days 05/03/22 #120 tabs sitagliptin phosphate 100 mg 100 mg PO DAILY 30 days #30 tabs 05/03/22 tablet (Januvia) oseltamivir 75 mg capsule (Tamiflu) 75 mg PO Q12H 5 days #10 caps 06/13/22 Allergies Allergy/AdvReac Type Severity Reaction Status Date / Time No Known Allergies Allergy Verified 07/07/21 13:26 [No Known Allergies*] Review of Systems Review of Systems: Yes all other systems are reviewed and are negative [facility] Past Medical History [facility] Narrative: Social history: He does smoke cigarettes, he occasionally drinks alcohol, he denies drug use. 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 Concussion Depression Depression Diabetes mellitus, type 2 Diabetes type 2, uncontrolled Hyperglycemia PTSD (post-traumatic stress disorder) Social History Social History Household Members: Family Household Members Other:: 2 Housing: Apartment Do you presently have visiting nurse or other home services: No Alcohol intake: never Patient Tobacco Use Status: Current everyday Tobacco user Tobacco use type: Cigarette Cigarette Packs Per Day: 2 Cigarettes Per Day: 40.0 Years Smoked: 4 years Smoked in Last 30 Days: Yes e-Cigarette/Vaping Use: Currently Using Second Hand Smoke Exposure: No Use of substances other than those prescribed or required for medical reasons: No Substance Use Type: Caffiene Advance Directives: No service: No Sexual orientation: Don't Know Physical Exam Vital Signs: Vital Signs: Last Vital Signs Temp 98.1 F 06/13/22 05:51 Pulse 88 06/13/22 05:51 Resp 21 H 06/13/22 05:51 BP 103/43 L 06/13/22 05:51 Pulse Ox 97 06/13/22 05:51 O2 Del Method 06/13/22 05:51 BMI result Body Mass Index 51.3 Const: General: cooperative and no acute distress Orientation/consciousness: oriented to person and oriented to place Limitations: no limitations HEENT: Head: Yes normal to inspection, Yes normocephalic and Yes atraumatic Ears: external ears normal General nose exam: Normal external nose present Face and sinus: Yes normal facial exam Mouth: Normal oral and palatal mucosa present Throat: Yes posterior oropharynx normal Eyes: General: appearance normal, both eyes and all related structures Pupils: Equal, round and reactive pupils present Neck: Neck: Yes normal visual inspection, Yes no lymphadenopathy, Yes trachea midline and Yes supple Chest: Chest palpation & inspection: normal inspection of the chest and normal palpation of entire chest wall Resp: Effort & Inspection: normal respiratory effort and able to speak in complete sentences Auscultation: clear to auscultation bilaterally Cardio: Rate: regular rate Rhythm: regular rhythm Heart sounds: S1 normal heart sound present, S2 normal heart sound present and no murmurs GI: Inspection: Yes normal to inspection Palpation (GI): Soft to palpation, nontender and no guarding Auscultation: normal bowel sounds : General: Yes no CVA tenderness Back/Spine/Pelvis: Back: no CVA tenderness Skin: General skin exam: no rashes or lesions noted Neuro: General: oriented to person and oriented to place Cranial nerves: Yes CN's II-XII intact bilaterally and Yes Equal, round and reactive pupils present Cognition (Neuro): normal cognition Motor exam (neuro): 5/5 motor strength present throughout Extrem: General: Yes normal to inspection Psych: Appearance: grossly normal Speech and movement: Normal speech and movement present Affect: normal affect Attitude: cooperative Thought process: Normal thought process present Thought content: Normal thought content present Course Course Course Narrative: 22-year-old male who presents emergency department for evaluation of flu like illness x1 day. Patient's influenza a was positive. Chest x-ray revealed no evidence of pneumonia. Patient did have an elevated glucose of 438. This is most likely multifactorial caused by influenza a, dehydration and noncompliance. I wanted to treat the patient with IV fluids and IV insulin however he states that he does not want this treatment and that he wants to go home and he will drink fluid intake his medications as prescribed. Patient was given Tamiflu 75 mg orally and started on Tamiflu 75 mg b.i.d. x5 days. He was advised to take Tylenol and ibuprofen for his fever and his pain Tamiflu 75 mg orally Medical Decision Making Medical Decision Making Differential Diagnoses: Differential diagnosis (COVID-19, influenza, RSV, viral syndrome, pneumonia) Consideration of admission/observation: Consideration of Admission/Observation (Yes) Discussion of management with other physician/healthcare provider/other source (e.g., hospitalist, media consultant outside sales, behavioral health): Discussion w/other physician/healthcare provider My interpretation is Lab Attestation: I reviewed the patient's lab results. Lab results narrative: Hyperglycemia with a glucose of 438, influenza test was positive for Influenza A Independent interpretation of EKG, rhythm strip, radiology study: Independent interp EKG,rhythm strip, radiology study I performed an independent interpret ation of the: Plain X-Ray My interpretation is Chest x-ray: No acute disease on my review of the study Non-ED record review: Review of External (Non-ED) Record (Psychiatric admission 05/03/2022) External record reviewed:: Inpatient record Tests considered but not performed: Tests Considered But Not Performed (Blood cultures, lactic acid, LFTs, live) Chronic conditions affecting care (e.g., diabetes, HTN): Chronic conditions affecting care (e.g., diabetes, HTN) (Diabetes mellitus, asthma) Discharge Plan Discharge Clinical Impression: Influenza A, Diabetes type 2, uncontrolled, Acute hyperglycemia Patient Disposition: Home, Self-Care Instructions: Influenza (ED) Additional Instructions: Your chest x-ray was normal Your COVID-19 was negative Your flu test was positive for influenza A. This is the reason why your feeling ill and explains her symptoms. Your blood glucose was also elevated at 438 I recommended that you stay in the emergency department to get IV fluid and insulin however you want to go home. Your glucose is high because you have flu and your dehydrated. It is important that you drink a lot of water to bring her sugar down and you take your insulin as prescribed by your doctor. Follow-up with your doctor in 2 days. Please return to the emergency department if your symptoms get worse or if you develop any symptoms that are concerning to you. Prescriptions: New oseltamivir [Tamiflu] 75 mg capsule 75 mg PO Q12H 5 Days Qty: 10 0RF No Action metformin 500 mg tablet extended release 24 hr 2 tab PO BID bupropion HCl 150 mg tablet extended release 24 hr 1 tab PO DAILY omeprazole 20 mg capsule,delayed release(DR/EC) 1 cap PO DAILY fenofibrate micronized 43 mg capsule 1 cap PO DAILY budesonide-formoterol [Symbicort] 80-4.5 mcg/actuation HFA aerosol inhaler 2 puff PO BID rosuvastatin 20 mg tablet 1 tab PO DAILY Invega Sustenna 234 mg/1.5 mL Syringe 234 mg IM Q30D Qty: 0 0RF haloperidol 5 mg tablet 10 mg PO BEDTIME Qty: 60 0RF gabapentin 300 mg capsule 1 cap PO BID Qty: 60 0RF haloperidol 5 mg tablet 5 mg PO QAM lamotrigine 25 mg tablet 2 tab PO DAILY lorazepam 1 mg tablet 1 tab PO BID PRN (Reason: anxiety) insulin lispro [Humalog KwikPen Insulin] 100 unit/mL insulin pen 0 - 100 unit subcut DAILY insulin degludec [Tresiba FlexTouch U-200] 200 unit/mL (3 mL) insulin pen 160 unit subcut DAILY Trulicity 0.75 mg/0.5 mL pen injector 0.75 mg subcut QWEEK haloperidol 5 mg Tablet 10 mg PO BID PRN (Reason: anger) 30 Days Qty: 120 0RF divalproex 500 mg Tablet,Delayed Release (Dr/Ec) 500 mg PO BID 30 Days Qty: 60 0RF Januvia 100 mg Tablet 100 mg PO DAILY 30 Days Qty: 30 0RF
[2022-06-13] MEDS: Oseltamivir Phosphate 75 MG CAPSULE PO (06:50)
== END 2022-06-13 06:51 | disposition home or self-care (01) ==
PROVIDERS: Emergency Provider Emergency Medicine Emergency Medical Services; PCP General Practice
DX: J10.1 Influenza due to other identified influenza virus with other respiratory manifestations (principal); R07.89 Other chest pain; R05.9 Cough, unspecified; E11.65 Type 2 diabetes mellitus with hyperglycemia; F17.210 Nicotine dependence, cigarettes, uncomplicated; Z20.822 Contact with and (suspected) exposure to COVID-19; Z79.899 Other long term (current) drug therapy; Z71.6 Tobacco abuse counseling; Z79.4 Long term (current) use of insulin
CPT/HCPCS: 0241U; 36415; 71045; 80048; 84484; 85025; 93005; 99284; 99285

== ENCOUNTER 2022-08-14 02:52 | Emergency (ER) | payer MEDICAID, OTHER, SELFPAY ==
[2022-08-14 02:59] VITALS: BP 125/71; PULSE 99; RESP 17; TEMP 36.6; O2SAT 96; BMI 51.3
[2022-08-14 03:15] LABS: Glucose, Whole Blood > 600 mg/dL (60-115)
[2022-08-14 03:15] LABS: Glucose, Whole Blood > 600 mg/dL (60-115)
[2022-08-14 03:42] LABS: MANUAL DIFF FLAG NO
[2022-08-14 03:43] LABS: Basophils Absolute Auto 0.1 X10*3/uL (0.0-0.2); Basophils Percent Auto 0.4 % (0-2); Eosinophils Absolute Auto 0.1 X10*3/uL (0.0-0.4); Eosinophils Percent Auto 0.9 % (0-4); Hematocrit 47.1 % (42.0-52.0); Imm Gran Abs Auto 0.04 X10*3/uL (0.00-0.03); Imm Gran Pct Auto 0.4 % (0.0-0.4); Lymphocytes Absolute Auto 3.7 X10*3/uL (1.2-4.9); Lymphocytes Percent Auto 32.5 % (20-40); Mean Corpuscular HGB Conc 36.1 g/dl (31.0-36.0); Mean Corpuscular Volume 83.1 fL (80.0-98.0); Mean Platelet Volume 11.1 fL (9.4-12.4); Monocytes Absolute Auto 1.2 X10*3/uL (0.1-1.2); Monocytes Percent Auto 10.2 % (2-11); Neutrophils Absolute Auto 6.3 x10*3/uL (2.0-8.3); Neutrophils Percent Auto 55.6 % (45-73); Platelet Count 197 X10*3/uL (160-400); Red Blood Count 5.67 X10*6/uL (4.60-5.80); Red Cell Distribution Width 11.9 % (11.0-16.0); White Blood Count 11.3 X10*3/uL (4.8-10.8)
[2022-08-14 04:02] LABS: COVID-19 Test Negative (Negative); IDNOW Serial# 6674DD1D
[2022-08-14 04:07] LABS: Amphetamine Screen Urine Not Detected (Not Detect); Barbiturates, Urine Not Detected (Not Detect); Benzodiazepines Screen Urine Not Detected (Not Detect); Cannabinoid Screen Urine Not Detected (Not Detect); Cocaine Screen Urine Not Detected (Not Detect); Fentanyl, urine Not Detected (Not Detect); Opiate Screen Urine Not Detected (Not Detect); Phencyclidine Screen Urine Not Detected (Not Detect)
[2022-08-14 04:12] LABS: Ethanol < 10 mg/dL; Valproate 19.2 mcg/mL (50.0-100.0)
[2022-08-14 04:23] LABS: Acetone, serum QL Small (Negative)
[2022-08-14 04:24] LABS: Alanine Aminotransferase 15 U/L (0-40); Alkaline Phosphatase 158 U/L (39-117); Anion Gap 20 (12-20); Aspartate Amino Transferase 14 U/L (5-37); Bilirubin Total 0.3 mg/dL (0.0-1.0); Blood Urea Nitrogen 18 mg/dL (9-16); Calcium 9.6 mg/dL (8.4-10.2); Carbon Dioxide 17 mmol/L (22-29); Chloride 94 mmol/L (96-108); Creatinine Clr Calc Pharmacy 142.6; Estimated Glomerular Filt Rate > 60; Potassium 4.2 mmol/L (3.3-5.1); Sodium 127 mmol/L (135-145); Total Protein 7.5 g/dL (6.5-8.0)
[2022-08-14 04:33] LABS: Glucose Random 788 mg/dL (60-115)
[2022-08-14] MEDS: Insulin Lispro 100 UNIT/ML 3 ML VIAL 10 UNIT SUBCUT ×2 (04:36→06:15)
--- NOTE | 2022-08-14 04:38 | PC.NURSE ---
R glucose 788 @ 0335/provider notified/ordered Lispro 10 units/administered as ordered/patient compliant
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
[2022-08-14 05:18] LABS: Glucose, Whole Blood > 600 mg/dL (60-115)
[2022-08-14 06:12] LABS: Glucose, Whole Blood 510 mg/dL (60-115)
--- NOTE | 2022-08-14 06:19 | PC.NURSE ---
POC at 0511 critical high, repeated at 0618 per provider was 510/ordered lispro 10 units/administered at 0615, patient is in bed appears resting, medication compliant, care consult ordered/pending evaluation, med rec completed/approved/MAR active, behavior non concerning, will continue to monitor.
[2022-08-14] MEDS: Omeprazole 20 MG CAPSULE.DR PO (08:48)
[2022-08-14] MEDS: Divalproex Sodium 500 MG TABLET.DR PO ×2 (08:48→19:57)
[2022-08-14] MEDS: hydrOXYzine HCL 25 MG TABLET PO ×3 (08:48→19:57)
[2022-08-14] MEDS: buPROPion HCl XL 150 MG TAB.ER.24H PO (08:48)
[2022-08-14 08:49] LABS: Glucose, Whole Blood 412 mg/dL (60-115)
[2022-08-14] MEDS: Insulin Glargine,Hum.rec.anlog 100 UNIT/ML 10 ML VIAL 112 UNIT SUBCUT (08:53)
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
[2022-08-14 13:51] LABS: Glucose, Whole Blood 363 mg/dL (60-115)
[2022-08-14] MEDS: Nicotine Polacrilex 2 MG GUM BUCCAL (14:27)
[2022-08-14 17:00] LABS: Anion Gap 14 (12-20); Blood Urea Nitrogen 13 mg/dL (9-16); Calcium 9.5 mg/dL (8.4-10.2); Carbon Dioxide 24 mmol/L (22-29); Chloride 102 mmol/L (96-108); Creatinine Clr Calc Pharmacy 189.2; Estimated Glomerular Filt Rate > 60; Glucose Random 381 mg/dL (60-115); Potassium 4.1 mmol/L (3.3-5.1); Sodium 136 mmol/L (135-145)
[2022-08-14 18:23] LABS: Glucose, Whole Blood 323 mg/dL (60-115)
[2022-08-14] MEDS: Insulin Lispro 100 UNIT/ML 3 ML VIAL 28 UNIT SUBCUT (18:23)
[2022-08-14 19:49] VITALS: BP 137/78; PULSE 102; RESP 20; TEMP 36.1; O2SAT 97
[2022-08-14 19:57] LABS: Glucose, Whole Blood 468 mg/dL (60-115)
[2022-08-14] MEDS: traZODone HCL 50 MG TABLET 150 MG PO (19:57)
[2022-08-14] MEDS: LORazepam 1 MG TABLET PO (19:57)
[2022-08-14 23:47] LABS: Glucose, Whole Blood 435 mg/dL (60-115)
[2022-08-15] MEDS: Insulin Lispro 100 UNIT/ML 3 ML VIAL 15 UNIT SUBCUT (00:03)
--- NOTE | 2022-08-15 00:12 | PC.NURSE ---
POC at 2342 is 435/provider notified/ordered Lispro 15 units/administered at 0003/patient compliant.
[2022-08-15 06:47] VITALS: BP 116/59; PULSE 62; RESP 17; TEMP 36.8; O2SAT 95
--- NOTE | 2022-08-15 07:07 | PC.NURSE ---
Patient slept through the night, no distress observed/reported, behavior non concerning, medication compliant, VSS, disposition per care team is section 12 inpatient bed search, POC 289 @ 0704, will continue to monitor.
[2022-08-15 07:08] LABS: Glucose, Whole Blood 288 mg/dL (60-115)
--- NOTE | 2022-08-15 09:10 | PC.NURSE ---
awaiting Mady to arrive to pod from pharmacy for administration.
[2022-08-15] MEDS: hydrOXYzine HCL 25 MG TABLET PO ×3 (09:59→20:01)
[2022-08-15] MEDS: Omeprazole 20 MG CAPSULE.DR PO (09:59)
[2022-08-15] MEDS: buPROPion HCl XL 150 MG TAB.ER.24H PO (09:59)
[2022-08-15] MEDS: Atorvastatin Calcium 80 MG TABLET PO (09:59)
[2022-08-15] MEDS: Divalproex Sodium 500 MG TABLET.DR PO ×2 (09:59→20:01)
--- NOTE | 2022-08-15 10:02 | PC.NURSE ---
Awaiting Fenofibrate & Breo to administer. Contacted pharmacy previously. Awaiting medications to arrive to unit to be administered.
[2022-08-15] MEDS: Fenofibrate 54 MG TABLET PO (11:03)
[2022-08-15] MEDS: LORazepam 1 MG TABLET PO (13:39)
[2022-08-15 13:46] LABS: Glucose, Whole Blood 433 mg/dL (60-115)
[2022-08-15] MEDS: Insulin Lispro 100 UNIT/ML 3 ML VIAL 28 UNIT SUBCUT ×2 (13:50→19:12)
--- NOTE | 2022-08-15 14:56 | PC.NURSE ---
MD was made aware of high blood glucose at lunch time. he did not want patient covered stated to just check blood glucose at dinner and cover then.
[2022-08-15 18:49] LABS: Glucose, Whole Blood 323 mg/dL (60-115)
[2022-08-15 19:55] VITALS: BP 125/78; PULSE 93; RESP 20; TEMP 36.1; O2SAT 97
[2022-08-15] MEDS: traZODone HCL 50 MG TABLET 150 MG PO (20:23)
[2022-08-15] MEDS: Acetaminophen 325 MG TABLET 650 MG PO (20:37)
[2022-08-15 21:11] LABS: Glucose, Whole Blood 414 mg/dL (60-115)
[2022-08-15] MEDS: Insulin Glargine,Hum.rec.anlog 100 UNIT/ML 10 ML VIAL 112 UNIT SUBCUT (21:24)
[2022-08-16 04:12] VITALS: BP 115/54; PULSE 72; RESP 24; TEMP 35.8; O2SAT 95
[2022-08-16] MEDS: Acetaminophen 325 MG TABLET 650 MG PO (05:56)
--- NOTE | 2022-08-16 06:11 | PC.NURSE ---
Pt. asleep at 2300. Pt. briefly awake at 430 to use the bathroom. Pt. up at 0600 reporting a headache. Pt. medicated with Tylenol and encourage to drink some water. Pt. compliant with medications. VSS. POC continues to be elevated. 300's-400's. Will continue to monitor.
[2022-08-16 07:15] LABS: Glucose, Whole Blood 337 mg/dL (60-115)
[2022-08-16 07:25] VITALS: BP 135/80; PULSE 88; RESP 18; O2SAT 95
[2022-08-16] MEDS: Insulin Lispro 100 UNIT/ML 3 ML VIAL 28 UNIT SUBCUT ×2 (07:40→12:54)
[2022-08-16 08:47] LABS: Glucose, Whole Blood 329 mg/dL (60-115)
[2022-08-16] MEDS: Fenofibrate 54 MG TABLET PO (10:06)
[2022-08-16] MEDS: buPROPion HCl XL 150 MG TAB.ER.24H PO (10:07)
[2022-08-16] MEDS: Omeprazole 20 MG CAPSULE.DR PO (10:07)
[2022-08-16] MEDS: hydrOXYzine HCL 25 MG TABLET PO (10:07)
[2022-08-16] MEDS: Divalproex Sodium 500 MG TABLET.DR PO (10:07)
[2022-08-16] MEDS: Atorvastatin Calcium 80 MG TABLET PO (10:07)
[2022-08-16 11:42] LABS: Glucose, Whole Blood > 600 mg/dL (60-115)
[2022-08-16 12:53] LABS: Glucose, Whole Blood 234 mg/dL (60-115)
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
[2022-08-16] MEDS: Ibuprofen 600 MG TABLET PO (14:41)
[2022-08-16] MEDS: LORazepam 1 MG TABLET PO (16:24)
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
== END 2022-08-16 16:45 | disposition home or self-care (01) ==
PROVIDERS: Emergency Medicine; Student in an Organized Health Care Education/Training Program; Emergency Provider Emergency Medicine Emergency Medical Services
DX: E11.65 Type 2 diabetes mellitus with hyperglycemia (principal); F25.0 Schizoaffective disorder, bipolar type; Z20.822 Contact with and (suspected) exposure to COVID-19; F43.10 Post-traumatic stress disorder, unspecified; F41.9 Anxiety disorder, unspecified; F17.210 Nicotine dependence, cigarettes, uncomplicated; Z79.02 Long term (current) use of antithrombotics/antiplatelets; Z79.4 Long term (current) use of insulin; Z79.899 Other long term (current) drug therapy
CPT/HCPCS: 36415; 80048; 80053; 80164; 80307; 82009; 82077; 82947; 85025; 87635; 99285; S9485

== ENCOUNTER 2022-10-29 10:54 | Outpatient (REF) | payer MEDICAID, SELFPAY ==
--- NOTE | ~2022-10-29 | XR_ITS ---
EXAMS: Left shoulder 3 views cervical spine 4 views and left shoulder 4 views HISTORY: Progressive pain. FINDINGS: Clinical joint preserved. No focal bony lesion. No soft tissue calcifications. Distal clavicle intact. Cervical spine imaging images no prevertebral soft tissue swelling. Normal alignment. Vertebral heights and disc spaces are preserved. Mild scoliosis convex left. Lung apices clear. No fracture or subluxation. Repeat left shoulder imaging images no focal lesion. XR/XR shoulder LT min 2V IMPRESSION: 1. Normal left shoulder. 2. Mild scoliosis. No fracture or subluxation.
== END 2022-10-29 10:55 | disposition home or self-care (01) ==
LOC: HO.XRAY 10:54
PROVIDERS: PCP General Practice; Visit Provider Family Medicine
DX: M25.512 Pain in left shoulder (principal)
CPT/HCPCS: 73030

== ENCOUNTER 2022-10-31 12:59 | Emergency (ER) | payer MEDICAID, SELFPAY ==
--- NOTE | ~2022-10-31 | XR_ITS ---
EXAMS: Left shoulder 3 views cervical spine 4 views and left shoulder 4 views HISTORY: Progressive pain. FINDINGS: Clinical joint preserved. No focal bony lesion. No soft tissue calcifications. Distal clavicle intact. Cervical spine imaging images no prevertebral soft tissue swelling. Normal alignment. Vertebral heights and disc spaces are preserved. Mild scoliosis convex left. Lung apices clear. No fracture or subluxation. Repeat left shoulder imaging images no focal lesion. XR/XR shoulder LT min 2V IMPRESSION: 1. Normal left shoulder. 2. Mild scoliosis. No fracture or subluxation.
--- NOTE | ~2022-10-31 | XR_ITS ---
EXAMS: Left shoulder 3 views cervical spine 4 views and left shoulder 4 views HISTORY: Progressive pain. FINDINGS: Clinical joint preserved. No focal bony lesion. No soft tissue calcifications. Distal clavicle intact. Cervical spine imaging images no prevertebral soft tissue swelling. Normal alignment. Vertebral heights and disc spaces are preserved. Mild scoliosis convex left. Lung apices clear. No fracture or subluxation. Repeat left shoulder imaging images no focal lesion. XR/XR cervical spine 3V IMPRESSION: 1. Normal left shoulder. 2. Mild scoliosis. No fracture or subluxation.
[2022-10-31 13:28] VITALS: BP 128/89; PULSE 94; RESP 16; TEMP 36.7; O2SAT 96; BMI 45.3
--- NOTE | 2022-10-31 13:31 | ED_ITS ---
HPI - General Adult General Chief complaint: Extremity Problem <LAYA Hernandez - Last Filed: 11/02/22 11:06> Stated complaint: L arm pain <LAYA Hernandez - Last Filed: 11/02/22 11:06> Time Seen by Provider: 10/31/22 18:57 <LAYA Hernandez - Last Filed: 11/02/22 11:06> Source: patient <Sylvia William MD - Last Filed: 10/31/22 20:11> Mode of arrival: ambulatory <Sylvia William MD - Last Filed: 10/31/22 20:11> History of Present Illness HPI narrative: 22-year-old male who presents with complaints of left shoulder/neck pain that he denies any falls or traumatic injury when it started approximately 1 week ago. Patient states that it hurts crust from the base of the left neck into the left shoulder but otherwise denies any numbness or tingling into that extremity he also denies any fevers or chills but <Sylvia William MD - Last Filed: 10/31/22 20:11> Related Data Home medications: Home Medications Medication Instructions Recorded Confirmed budesonide-formoterol HFA 80 2 puff PO BID 02/24/22 08/14/22 mcg-4.5 mcg/actuation aerosol inhaler (Symbicort) fenofibrate micronized 43 mg 1 cap PO DAILY 02/24/22 08/14/22 capsule omeprazole 20 mg capsule,delayed 1 cap PO DAILY 02/24/22 08/14/22 release rosuvastatin 20 mg tablet 1 tab PO DAILY 02/24/22 08/14/22 bupropion HCl 150 mg 24 hr tablet, 1 tab PO QAM depressive disorder 08/14/22 08/14/22 extended release divalproex 500 mg tablet,delayed 500 mg PO BID 08/14/22 08/14/22 release dulaglutide 0.75 mg/0.5 mL 0.75 mg subcut QWEEK 08/14/22 08/14/22 subcutaneous [facility] hydroxyzine HCl 25 mg tablet 1 tab PO TID anxiety 08/14/22 08/14/22 insulin degludec 200 unit/mL (3 160 unit subcut DAILY 08/14/22 08/14/22 mL) subcutaneous pen (Tresiba FlexTouch U-200 insulin) insulin lispro 100 unit/mL subcut 08/14/22 subcutaneous pen lorazepam 1 mg tablet 1 tab PO BID PRN panic attack 08/14/22 08/14/22 olanzapine 5 mg tablet 1 tab PO BID PRN Agitation 08/14/22 08/14/22 paliperidone palmitate 234 mg/1.5 1 syringe IM QMONTH 08/14/22 08/14/22 mL intramuscular syringe (Invega Sustenna) trazodone 150 mg tablet 1 tab PO BEDTIME PRN Insomnia 08/14/22 08/14/22 <LAYA Hernandez - Last Filed: 11/02/22 11:06> Allergies/adverse reactions: Allergies Allergy/AdvReac Type Severity Reaction Status Date / Time No Known Allergies Allergy Verified 10/31/22 13:28 [No Known Allergies*] <LAYA Hernandez - Last Filed: 11/02/22 11:06> Review of Systems Review of Systems: Pertinent positives and negatives as stated in HPI <Sylvia William MD - Last Filed: 10/31/22 20:11> PMFSH Past Medical History Source: nursing notes reviewed <Sylvia William MD - Last Filed: 10/31/22 20:11> Medical History: 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 Concussion Depression Depression Diabetes mellitus, type 2 Diabetes type 2, uncontrolled Hyperglycemia PTSD (post-traumatic stress disorder) <LAYA Hernandez - Last Filed: 11/02/22 11:06> Social History Social History: Social History Household Members: Family Household Members Other:: 2 Housing: Apartment Do you presently have visiting nurse or other home services: No Alcohol intake: current Alcohol intake frequency: holidays/special occasions only Alcohol type: beer, wine and hard liquor Patient Tobacco Use Status: Current everyday Tobacco user Tobacco use type: Cigarette Cigarette Packs Per Day: 2 Cigarettes Per Day: 40.0 Years Smoked: 4 years Smoked in Last 30 Days: Yes e-Cigarette/Vaping Use: Currently Using Second Hand Smoke Exposure: No Use of substances other than those prescribed or required for medical reasons: No Substance Use Type: Caffiene Any prior treatment program specific to substance use: No Advance Directives: Yes Advance Directives Information Provided: Yes Advance Directives on File: No service: No Sexual orientation: Don't Know <LAYA Hernandez - Last Filed: 11/02/22 11:06> Physical Exam ED Vital Signs: Vital Signs - 24 hr 10/31/22 13:28 10/31/22 19:28 Temperature 98.1 F 98.2 F Pulse Rate 94 90 Respiratory Rate 16 16 Blood Pressure 128/89 130/80 Pulse Oximetry 96 99 Oxygen Delivery Method Room Air Room Air BMI result Body Mass Index 45.3 <LAYA Hernandez - Last Filed: 11/02/22 11:06> Vital Signs - 24 hr 10/31/22 13:28 10/31/22 19:28 Temperature 98.1 F 98.2 F Pulse Rate 94 90 Respiratory Rate 16 16 Blood Pressure 128/89 130/80 Pulse Oximetry 96 99 Oxygen Delivery Method Room Air Room Air BMI result Body Mass Index 45.3 VITAL SIGNS: Reviewed. GENERAL: Well developed, well nourished, in no acute distress. HEAD: Normocephalic/atraumatic EYES: PERRLA, EOMI EARS: Ext canals without abnormality NOSE: Nares patent bilateral OROPHARYNX: no oral lesions noted, posterior pharynx clear NECK: Supple, no adenopathy LUNGS: Normal breath sounds. No adventitious sounds or accessory muscle use. SpO2<> CARDIOVASCULAR: Regular rate and rhythm without noted murmurs ABDOMEN: Soft, non-tender, non-distended with bowel sounds. MUSCULOSKELETAL: No tenderness, deformities, or effusions noted on gross inspection. EXTREMITIES: No cyanosis, clubbing or edema LEFT SHOULDER: No AC tenderness palpation no obvious edema/erythema no bicipital groove tenderness to palpation some muscle tightness appreciated over the left shoulder, palpable radial and ulnar pulses with good sensation, capillary refill less than 2 seconds. SKIN: Inspection of the skin reveals no rashes NEUROLOGIC: Alert and oriented x 4. Strength and sensation to light touch were grossly intact x 4. <Sylvia William MD - Last Filed: 10/31/22 20:11> Course Course Course Narrative: RMEL 22 yold male with pmh of DM presents to the ED left shoulder/arm/neck pain since this morning. patient states pain when moving his shoulder. patient states no new trauma. Patient has positive shoulder and posterior cervical spine tendnerness. Left upper extremity not swollwne and nuero/vascular/motor exam is intact. due to pmh of DM and noncompliance will do POC glucose and cardiac work upe <LAYA Hernandez - Last Filed: 11/02/22 11:06> Medications Administered Discontinued Medications Generic Name Dose Route Start Last Admin Trade Name Freq PRN Reason Stop Dose Admin Acetaminophen 975 mg 10/31/22 19:56 10/31/22 20:20 Acetaminophen 325 Mg Tablet PO 10/31/22 19:57 975 mg ONCE ONE Administration Ibuprofen 400 mg 10/31/22 19:56 10/31/22 20:22 Ibuprofen 400 Mg Tablet PO 10/31/22 19:57 400 mg ONCE ONE Administration Lidocaine 1 patch 10/31/22 19:56 10/31/22 20:22 Lidocaine 4 % Patch Adh..Patch TRANSDERMA 10/31/22 19:57 1 patch ONCE ONE Administration Protocol <LAYA Hernandez - Last Filed: 11/02/22 11:06> Medications Administered Discontinued Medications Generic Name Dose Route Start Last Admin Trade Name Freq PRN Reason Stop Dose Admin Acetaminophen 975 mg 10/31/22 19:56 10/31/22 20:20 Acetaminophen 325 Mg Tablet PO 10/31/22 19:57 975 mg ONCE ONE Administration Ibuprofen 400 mg 10/31/22 19:56 10/31/22 20:22 Ibuprofen 400 Mg Tablet PO 10/31/22 19:57 400 mg ONCE ONE Administration Lidocaine 1 patch 10/31/22 19:56 10/31/22 20:22 Lidocaine 4 % Patch Adh..Patch TRANSDERMA 10/31/22 19:57 1 patch ONCE ONE Administration Protocol <Sylvia William MD - Last Filed: 10/31/22 20:11> Medical Decision Making Medical Decision Making MDM Narrative: 22-year-old male with history and clinical presentation most consistent with shoulder pain associated with underlying diabetic disease, I reviewed all investigations and my interpretation is there is no evidence of cardiac or pulmonary etiology. No evidence of DKA or HHS. There is no obvious traumatic injury to left shoulder and patient was instructed to continue with Tylenol and ibuprofen as well as a lidocaine patch for symptom relief and to follow-up with his primary care provider. Patient states that he drink a soda just prior to lab work being ordered. Repeat point of care glucose is 348, patient struck did to return home in take his home glucose at this time. He does not have any symptoms to suggest any acute issues given the hyperglycemia. <Sylvia William MD - Last Filed: 10/31/22 20:11> Differential Diagnosis Please see the discussion above <Sylvia William MD - Last Filed: 10/31/22 20:11> Lab Data Please see the discussion above <Sylvia William MD - Last Filed: 10/31/22 20:11> Result Diagrams: 10/31/22 14:23 10/31/22 14:22 <LAYA Hernandez - Last Filed: 11/02/22 11:06> Labs: Lab Results 10/31/22 10/31/22 10/31/22 Range/Units 14:22 14:22 14:22 WBC (4.8-10.8) X10*3/uL RBC (4.60-5.80) X10*6/uL Hgb (14.0-18.0) g/dl Hct (42.0-52.0) % MCV (80.0-98.0) fL MCH (27.0-33.0) pg MCHC (31.0-36.0) g/dl RDW (11.0-16.0) % Plt Count (160-400) X10*3/uL MPV (9.4-12.4) fL Immature Gran % (Auto) (0.0-0.4) % Neut % (Auto) (45-73) % Lymph % (Auto) (20-40) % [place] % (Auto) (2-11) % Eos % (Auto) (0-4) % Baso % (Auto) (0-2) % Lymph # (Auto) (1.2-4.9) X10*3/uL [place] # (Auto) (0.1-1.2) X10*3/uL Eos # (Auto) (0.0-0.4) X10*3/uL Baso # (Auto) (0.0-0.2) X10*3/uL Abs Immat Gran (auto) (0.00-0.03) X10*3/uL Absolute Neuts (auto) (2.0-8.3) x10*3/uL Absolute Nucleated RBC (0.0-0.012) X10*3/uL Nucleated RBC % (auto) (0.0-0.2) /100WBC PT 10.6 (10.0-13.1) SEC INR 0.9 (0.9-1.1) APTT 31.1 (26.0-36.4) SEC Sodium 138 (135-145) mmol/L Potassium 4.5 (3.3-5.1) mmol/L Chloride 104 (96-108) mmol/L Carbon Dioxide 24 (22-29) mmol/L Anion Gap 15 (12-20) BUN 11 (9-16) mg/dL Creatinine 1.08 (0.5-1.4) mg/dL Estim Creat Clear Calc 154.8 Estimated GFR > 60 POC Glucose (60-115) mg/dL Random Glucose 474 H* (60-115) mg/dL Calcium 9.7 (8.4-10.2) mg/dL Total Bilirubin 0.5 (0.0-1.0) mg/dL AST 10 (5-37) U/L ALT 13 (0-40) U/L Alkaline Phosphatase 86 (39-117) U/L Troponin I High Sens < 2.7 (<3.5-35.0) ng/L Total Protein 7.1 (6.5-8.0) g/dL Albumin 4.3 (3.5-5.0) g/dL Acetone, Qual (Negative) 10/31/22 10/31/22 10/31/22 Range/Units 14:22 14:23 20:00 WBC 8.0 (4.8-10.8) X10*3/uL RBC 5.92 H (4.60-5.80) X10*6/uL Hgb 17.5 (14.0-18.0) g/dl Hct 50.3 (42.0-52.0) % MCV 85.0 (80.0-98.0) fL MCH 29.6 (27.0-33.0) pg MCHC 34.8 (31.0-36.0) g/dl RDW 11.4 (11.0-16.0) % Plt Count 214 (160-400) X10*3/uL MPV 11.0 (9.4-12.4) fL Immature Gran % (Auto) 0.2 (0.0-0.4) % Neut % (Auto) 51.2 (45-73) % Lymph % (Auto) 37.3 (20-40) % [place] % (Auto) 9.8 (2-11) % Eos % (Auto) 1.1 (0-4) % Baso % (Auto) 0.4 (0-2) % Lymph # (Auto) 3.0 (1.2-4.9) X10*3/uL [place] # (Auto) 0.8 (0.1-1.2) X10*3/uL Eos # (Auto) 0.1 (0.0-0.4) X10*3/uL Baso # (Auto) 0.0 (0.0-0.2) X10*3/uL Abs Immat Gran (auto) 0.02 (0.00-0.03) X10*3/uL Absolute Neuts (auto) 4.1 (2.0-8.3) x10*3/uL Absolute Nucleated RBC 0.000 (0.0-0.012) X10*3/uL Nucleated RBC % (auto) 0.0 (0.0-0.2) /100WBC PT (10.0-13.1) SEC INR (0.9-1.1) APTT (26.0-36.4) SEC Sodium (135-145) mmol/L Potassium (3.3-5.1) mmol/L Chloride (96-108) mmol/L Carbon Dioxide (22-29) mmol/L Anion Gap (12-20) BUN (9-16) mg/dL Creatinine (0.5-1.4) mg/dL Estim Creat Clear Calc Estimated GFR POC Glucose 348 H (60-115) mg/dL Random Glucose (60-115) mg/dL Calcium (8.4-10.2) mg/dL Total Bilirubin (0.0-1.0) mg/dL AST (5-37) U/L ALT (0-40) U/L Alkaline Phosphatase (39-117) U/L Troponin I High Sens (<3.5-35.0) ng/L Total Protein (6.5-8.0) g/dL Albumin (3.5-5.0) g/dL Acetone, Qual Negative (Negative) <LAYA Hernandez - Last Filed: 11/02/22 11:06> Lab Results 10/31/22 10/31/22 10/31/22 Range/Units 14:22 14:22 14:22 WBC (4.8-10.8) X10*3/uL RBC (4.60-5.80) X10*6/uL Hgb (14.0-18.0) g/dl Hct (42.0-52.0) % MCV (80.0-98.0) fL MCH (27.0-33.0) pg MCHC (31.0-36.0) g/dl RDW (11.0-16.0) % Plt Count (160-400) X10*3/uL MPV (9.4-12.4) fL Immature Gran % (Auto) (0.0-0.4) % Neut % (Auto) (45-73) % Lymph % (Auto) (20-40) % [place] % (Auto) (2-11) % Eos % (Auto) (0-4) % Baso % (Auto) (0-2) % Lymph # (Auto) (1.2-4.9) X10*3/uL [place] # (Auto) (0.1-1.2) X10*3/uL Eos # (Auto) (0.0-0.4) X10*3/uL Baso # (Auto) (0.0-0.2) X10*3/uL Abs Immat Gran (auto) (0.00-0.03) X10*3/uL Absolute Neuts (auto) (2.0-8.3) x10*3/uL Absolute Nucleated RBC (0.0-0.012) X10*3/uL Nucleated RBC % (auto) (0.0-0.2) /100WBC PT 10.6 (10.0-13.1) SEC INR 0.9 (0.9-1.1) APTT 31.1 (26.0-36.4) SEC Sodium 138 (135-145) mmol/L Potassium 4.5 (3.3-5.1) mmol/L Chloride 104 (96-108) mmol/L Carbon Dioxide 24 (22-29) mmol/L Anion Gap 15 (12-20) BUN 11 (9-16) mg/dL Creatinine 1.08 (0.5-1.4) mg/dL Estim Creat Clear Calc 154.8 Estimated GFR > 60 POC Glucose (60-115) mg/dL Random Glucose 474 H* (60-115) mg/dL Calcium 9.7 (8.4-10.2) mg/dL Total Bilirubin 0.5 (0.0-1.0) mg/dL AST 10 (5-37) U/L ALT 13 (0-40) U/L Alkaline Phosphatase 86 (39-117) U/L Troponin I High Sens < 2.7 (<3.5-35.0) ng/L Total Protein 7.1 (6.5-8.0) g/dL Albumin 4.3 (3.5-5.0) g/dL Acetone, Qual (Negative) 10/31/22 10/31/22 10/31/22 Range/Units 14:22 14:23 20:00 WBC 8.0 (4.8-10.8) X10*3/uL RBC 5.92 H (4.60-5.80) X10*6/uL Hgb 17.5 (14.0-18.0) g/dl Hct 50.3 (42.0-52.0) % MCV 85.0 (80.0-98.0) fL MCH 29.6 (27.0-33.0) pg MCHC 34.8 (31.0-36.0) g/dl RDW 11.4 (11.0-16.0) % Plt Count 214 (160-400) X10*3/uL MPV 11.0 (9.4-12.4) fL Immature Gran % (Auto) 0.2 (0.0-0.4) % Neut % (Auto) 51.2 (45-73) % Lymph % (Auto) 37.3 (20-40) % [place] % (Auto) 9.8 (2-11) % Eos % (Auto) 1.1 (0-4) % Baso % (Auto) 0.4 (0-2) % Lymph # (Auto) 3.0 (1.2-4.9) X10*3/uL [place] # (Auto) 0.8 (0.1-1.2) X10*3/uL Eos # (Auto) 0.1 (0.0-0.4) X10*3/uL Baso # (Auto) 0.0 (0.0-0.2) X10*3/uL Abs Immat Gran (auto) 0.02 (0.00-0.03) X10*3/uL Absolute Neuts (auto) 4.1 (2.0-8.3) x10*3/uL Absolute Nucleated RBC 0.000 (0.0-0.012) X10*3/uL Nucleated RBC % (auto) 0.0 (0.0-0.2) /100WBC PT (10.0-13.1) SEC INR (0.9-1.1) APTT (26.0-36.4) SEC Sodium (135-145) mmol/L Potassium (3.3-5.1) mmol/L Chloride (96-108) mmol/L Carbon Dioxide (22-29) mmol/L Anion Gap (12-20) BUN (9-16) mg/dL Creatinine (0.5-1.4) mg/dL Estim Creat Clear Calc Estimated GFR POC Glucose 348 H (60-115) mg/dL Random Glucose (60-115) mg/dL Calcium (8.4-10.2) mg/dL Total Bilirubin (0.0-1.0) mg/dL AST (5-37) U/L ALT (0-40) U/L Alkaline Phosphatase (39-117) U/L Troponin I High Sens (<3.5-35.0) ng/L Total Protein (6.5-8.0) g/dL Albumin (3.5-5.0) g/dL Acetone, Qual Negative (Negative) <Sylvia William MD - Last Filed: 10/31/22 20:11> Independent Interpretation I performed an independent interpretation of an: EKG <Sylvia William MD - Last Filed: 10/31/22 20:11> Interpretation: Normal sinus rhythm, HR-85, no STEMI, MS/QRS/QTC is within normal limits. <Sylvia William MD - Last Filed: 10/31/22 20:11> Radiology Impression Radiologist Impression: My interpretation is in agreement with radiology's impression of the imaging studies. <Sylvia William MD - Last Filed: 10/31/22 20:11> External Record Review External record reviewed: Outpatient record and Prior outpatient labs <Sylvia William MD - Last Filed: 10/31/22 20:11> Chronic Conditions Patient?s care impacted by: Diabetes <Sylvia William MD - Last Filed: 10/31/22 20:11> Discharge Plan Discharge Clinical Impression: Left shoulder pain <LAYA Hernandez - Last Filed: 11/02/22 11:06> Patient Disposition: Home, Self-Care <LAYA Hernandez - Last Filed: 11/02/22 11:06> Instructions: Diabetic Hyperglycemia (ED), Shoulder Pain (ED) <LAYA Hernandez - Last Filed: 11/02/22 11:06> Additional Instructions: 1. Resume all home medications as prescribed. 2. Recommend [id number] Tylenol and/or ibuprofen as needed for pain control. Also consider [id number] lidocaine patch for additional symptom relief. 3. Recommend that you follow-up with your primary care provider by calling the office on Tuesday morning to discuss possible physical therapy intervention as this may be related with your underlying diabetes. Return to the ER for any worsening symptoms. <LAYA Hernandez - Last Filed: 11/02/22 11:06> Prescriptions: No Action omeprazole 20 mg capsule,delayed release(DR/EC) 1 cap PO DAILY fenofibrate micronized 43 mg capsule 1 cap PO DAILY budesonide-formoterol [Symbicort] 80-4.5 mcg/actuation HFA aerosol inhaler 2 puff PO BID rosuvastatin 20 mg tablet 1 tab PO DAILY olanzapine 5 mg tablet 1 tab PO BID PRN (Reason: Agitation) divalproex 500 mg tablet,delayed release (DR/EC) 500 mg PO BID trazodone 150 mg tablet 1 tab PO BEDTIME PRN (Reason: Insomnia) hydroxyzine HCl 25 mg tablet 1 tab PO TID insulin lispro 100 unit/mL insulin pen subcut bupropion HCl 150 mg tablet extended release 24 hr 1 tab PO QAM insulin degludec [Tresiba FlexTouch U-200] 200 unit/mL (3 mL) insulin pen 160 unit subcut DAILY Trulicity 0.75 mg/0.5 mL pen injector 0.75 mg subcut QWEEK Invega Sustenna 234 mg/1.5 mL syringe 1 syringe IM QMONTH lorazepam 1 mg tablet 1 tab PO BID PRN (Reason: panic attack) <LAYA Hernandez - Last Filed: 11/02/22 11:06> Referrals: Gricel Daniel MD [Primary Care Provider] - <LAYA Hernandez - Last Filed: 11/02/22 11:06> Interventions: ED Discharge Assessment Last Done: 10/31/22 21:00 <LAYA Hernandez - Last Filed: 11/02/22 11:06> Discharge Date/Time: 10/31/22 21:00 <LAYA Hernandez - Last Filed: 11/02/22 11:06>
--- NOTE | 2022-10-31 13:34 | ECG_ITS ---
Test Reason : LEFT ARM PAIN Blood Pressure : / mmHG Vent. Rate : 085 BPM Atrial Rate : 085 BPM P-R Int : 154 ms QRS Dur : 082 ms QT Int : 332 ms P-R-T Axes : 034 022 021 degrees QTc Int : 395 ms Normal sinus rhythm Cannot rule out Anterior infarct , age undetermined Abnormal ECG When compared with ECG of 13-JUN-2022 04:30, No significant change was found Referred By: Tyrese Hoffman Electronically Signed By:ANIVAL MOROCHO MD
[2022-10-31 14:28] LABS: MANUAL DIFF FLAG NO
[2022-10-31 14:30] LABS: Basophils Percent Auto 0.4 % (0-2); Eosinophils Absolute Auto 0.1 X10*3/uL (0.0-0.4); Eosinophils Percent Auto 1.1 % (0-4); Hematocrit 50.3 % (42.0-52.0); Hemoglobin 17.5 g/dl (14.0-18.0); Imm Gran Abs Auto 0.02 X10*3/uL (0.00-0.03); Imm Gran Pct Auto 0.2 % (0.0-0.4); Lymphocytes Percent Auto 37.3 % (20-40); Mean Corpuscular HGB Conc 34.8 g/dl (31.0-36.0); Mean Corpuscular Hemoglobin 29.6 pg (27.0-33.0); Monocytes Absolute Auto 0.8 X10*3/uL (0.1-1.2); Monocytes Percent Auto 9.8 % (2-11); Neutrophils Absolute Auto 4.1 x10*3/uL (2.0-8.3); Neutrophils Percent Auto 51.2 % (45-73); Platelet Count 214 X10*3/uL (160-400); Red Blood Count 5.92 X10*6/uL (4.60-5.80); Red Cell Distribution Width 11.4 % (11.0-16.0)
[2022-10-31 14:42] LABS: INTERNATIONAL NORM RATIO 0.9 (0.9-1.1); Prothrombin Time 10.6 SEC (10.0-13.1)
[2022-10-31 14:45] LABS: Acetone, serum QL Negative (Negative); Partial Thromboplastin Time 31.1 SEC (26.0-36.4)
[2022-10-31 14:47] LABS: Alanine Aminotransferase 13 U/L (0-40); Albumin Level 4.3 g/dL (3.5-5.0); Alkaline Phosphatase 86 U/L (39-117); Anion Gap 15 (12-20); Aspartate Amino Transferase 10 U/L (5-37); Bilirubin Total 0.5 mg/dL (0.0-1.0); Blood Urea Nitrogen 11 mg/dL (9-16); Calcium 9.7 mg/dL (8.4-10.2); Carbon Dioxide 24 mmol/L (22-29); Chloride 104 mmol/L (96-108); Creatinine Clr Calc Pharmacy 154.8; Estimated Glomerular Filt Rate > 60; Glucose Random 474 mg/dL (60-115); Potassium 4.5 mmol/L (3.3-5.1); Sodium 138 mmol/L (135-145); Total Protein 7.1 g/dL (6.5-8.0)
[2022-10-31 14:56] LABS: Troponin-I High Sensitivity < 2.7 ng/L (<3.5-35.0)
[2022-10-31 19:28] VITALS: BP 130/80; PULSE 90; RESP 16; TEMP 36.8; O2SAT 99
[2022-10-31 20:03] LABS: Glucose, Whole Blood 348 mg/dL (60-115)
[2022-10-31] MEDS: Acetaminophen 325 MG TABLET 975 MG PO (20:20)
[2022-10-31] MEDS: Lidocaine 4 % Patch ADH..PATCH 1 PATCH TRANSDERMA (20:22)
[2022-10-31] MEDS: Ibuprofen 400 MG TABLET PO (20:22)
== END 2022-10-31 21:00 | disposition home or self-care (01) ==
PROVIDERS: Physician Assistant; Emergency Provider Student in an Organized Health Care Education/Training Program; PCP General Practice
DX: M25.512 Pain in left shoulder (principal); R94.31 Abnormal electrocardiogram [ECG] [EKG]; M54.2 Cervicalgia; R51.9 Headache, unspecified; Z79.899 Other long term (current) drug therapy
CPT/HCPCS: 36415; 72040; 73030; 80053; 82009; 82947; 84484; 85025; 85610; 85730; 93005; 99284; 99285

== ENCOUNTER 2023-01-14 13:57 | Outpatient (AMB) | payer MEDICAID, SELFPAY ==
[2023-01-14 14:03] VITALS: BMI 45.3
--- NOTE | 2023-01-14 14:03 | A.OFFVIS_ITS ---
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 States his right is worse. States pain started about 4-5 years. He recall he fell off a skate board and landed on his right side. Patient is limited ROM and has difficulty showering and doing his hair. He is experiencing sharp pain from shoulder to his arm. Denies numbness and tingling. Patient has had cortisone injections in the past with temporary relief. Hx of DM. 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 He claims the right shoulder is worse then the left. He states the pain began around 5 years, in 2018. He recalls a fall off a skateboard and landing on his right side. He reports limited ROM, difficulty showering, and doing his hair. He confirms sharp electric pain in the right shoulders that radiates to his wrist. He denies numbness or tingling. He confirms a history of cortisone injections with temporary relief. He states he was seen in the ED and was told there was nothing wrong with the arm. He was given lidocaine patches. Patient has a history of diabetes mellitus. [facility] 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 Concussion Depression Depression Diabetes mellitus, type 2 Diabetes type 2, uncontrolled Hyperglycemia PTSD (post-traumatic stress disorder) Social History Household Members: Family Household Members Other:: 2 Housing: Apartment Do you presently have visiting nurse or other home services: No Alcohol intake: current Alcohol intake frequency: holidays/special occasions only Alcohol type: beer, wine and hard liquor Patient Tobacco Use Status: Current everyday Tobacco user Tobacco use type: Cigarette Cigarette Packs Per Day: 2 Cigarettes Per Day: 40.0 Years Smoked: 4 years e-Cigarette/Vaping Use: Currently Using Second Hand Smoke Exposure: No Substance Use Type: Caffiene service: No Current occupational status: disabled 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 Sexual orientation: Don't Know Review of Systems Const All systems reviewed & are unremarkable except as noted in HPI and below Physical Exam Vital Signs: BMI result Body Mass Index 45.3 Const General: cooperative, healthy appearing, comfortable, no acute distress, well developed and alert Orientation/consciousness: patient oriented x3 HEENT Head: Yes normal to inspection, Yes normocephalic and Yes atraumatic Eyes General: appearance normal, both eyes and all related structures Resp Effort & Inspection: normal respiratory effort and able to speak in complete sentences Cardio Rate: regular rate Peripheral pulses: Peripheral pulses 2+ throughout GI Palpation (GI): Soft to palpation Skin Lesions: no lesions Rashes: no rashes Neuro General: patient oriented x3 Extrem Other: Right shoulder: Forward flexion and abduction to 90 degrees. Able to reach T12. Pain with cross-body reach. 4/5 strength with empty can. Negative drop arm. NVI. Tenderness to palpation over the scapula. Assessment & Plan Assessment & Plan (1) Myofascial pain on right side: Code(s): M79.18 - Myalgia, other site Plan Mr. Fontanez is a 22-year-old right hand dominant male who presents in the office today, as a new patient, for an evaluation of bilateral shoulder pain. He claims the right shoulder is worse then the left. He states the pain began around 5 years, in 2018. He recalls a fall off a skateboard and landing on his right si de. He reports limited ROM, difficulty showering, and doing his hair. He confirms sharp electric pain in the right shoulders that radiates to his wrist. He denies numbness or tingling. He confirms a history of cortisone injections with temporary relief. He states he was seen in the ED and was told there was nothing wrong with the arm. He was given lidocaine patches. Patient has a history of diabetes mellitus. Patient confirms a prior MRI a few years ago. I discussed the role of physical therapy to work on ROM. He would like to attend. If after 6 weeks of physical therapy he has not had relief we will consider moving forward with an MRI. Follow up will be in 6-8 weeks, or sooner if needed. Patient Instructions: Scribed for Radha Talbert PA-C by Joanie Juares, medical claims specialist, on 01/14/2023 at 2:03 pm, EST. Your attestation Coding Level of Care Code New Pt Level 4 (16918) Diagnoses Myofascial pain on right side M79.18
== END 2023-01-14 14:59 | disposition home or self-care (01) ==
PROVIDERS: Visit Provider Physician Assistant
DX: M79.18 Myalgia, other site (principal)
CPT/HCPCS: 99204

== ENCOUNTER → 2023-01-14 13:57 | Outpatient (BNVA) | payer MEDICAID, SELFPAY | PROVIDERS: Visit Provider Physician Assistant | DX: M79.18 Myalgia, other site (principal) | CPT/HCPCS: 99204 ==

== ENCOUNTER 2023-02-14 22:26 | Emergency (ER) | payer MEDICAID, SELFPAY ==
--- NOTE | 2023-02-14 | ECG_ITS ---
Test Reason : CP Blood Pressure : / mmHG Vent. Rate : 086 BPM Atrial Rate : 086 BPM P-R Int : 156 ms QRS Dur : 080 ms QT Int : 338 ms P-R-T Axes : 030 018 029 degrees QTc Int : 404 ms Normal sinus rhythm Nonspecific T wave abnormality Abnormal ECG When compared with ECG of 31-OCT-2022 14:12, No significant change was found Referred By: Generic ED Physician Electronically Signed By:VIK POTTS
--- NOTE | ~2023-02-14 | XR_ITS ---
EXAMINATION: XR SHOULDER, RIGHT CLINICAL INFORMATION: Shoulder pain COMPARISON: None available. TECHNIQUE: Three views of the right shoulder. FINDINGS: The bones and soft tissues are normal. No fracture. Glenohumeral and acromioclavicular alignment is anatomic with normal joint space. No abnormal soft tissue calcifications. XR/XR shoulder RT min 2V IMPRESSION: Normal right shoulder.
--- NOTE | ~2023-02-14 | XR_ITS ---
EXAMINATION: XR CHEST CLINICAL INFORMATION: Shortness of breath and chest pain COMPARISON: 06/13/2022 TECHNIQUE: Frontal view of the chest was obtained. FINDINGS: No significant abnormality is noted involving the heart, lungs, mediastinum, bony thorax or soft tissues. XR/XR chest 1V IMPRESSION: Unremarkable examination.
--- NOTE | 2023-02-14 22:32 | MHC.EDTECH ---
Called @ 0862 for EKG no answer
[2023-02-14 22:43] VITALS: BP 142/85; PULSE 88; RESP 18; TEMP 36.6; O2SAT 95; BMI 44.8
[2023-02-14 23:36] LABS: COVID-19 Test Negative (Negative); IDNOW Serial# 55D5AD1C
--- NOTE | 2023-02-14 23:56 | ED.EXTPRO ---
HPI - Extremity Problem General Chief complaint: Extremity Injury, Upper Stated complaint: chest pain, R arm pain, fire sensation. sweaty Time Seen by Provider: 02/14/23 23:21 Source: patient, RN notes reviewed and old records reviewed Mode of arrival: ambulatory Limitations: no limitations History of Present Illness HPI Narrative: 22-year-old male presents for evaluation of right shoulder pain Patient reports this is the 3rd time in the last month he has had pain to the right shoulder. Describes the pain as burning The pain radiates into his shoulder. Denies any fevers, chills, cough, shortness of breath He reports that he has seen orthopedics in the past and ?they tell me nothing is wrong. ? Is any specific injury recently or remotely Related Data Home Medications Medication Instructions Recorded Confirmed budesonide-formoterol HFA 80 2 puff PO BID 02/24/22 08/14/22 mcg-4.5 mcg/actuation aerosol inhaler (Symbicort) fenofibrate micronized 43 mg 1 cap PO DAILY 02/24/22 08/14/22 capsule omeprazole 20 mg capsule,delayed 1 cap PO DAILY 02/24/22 08/14/22 release rosuvastatin 20 mg tablet 1 tab PO DAILY 02/24/22 08/14/22 bupropion HCl 150 mg 24 hr tablet, 1 tab PO QAM depressive disorder 08/14/22 08/14/22 extended release divalproex 500 mg tablet,delayed 500 mg PO BID 08/14/22 08/14/22 release dulaglutide 0.75 mg/0.5 mL 0.75 mg subcut QWEEK 08/14/22 08/14/22 [facility] hydroxyzine HCl 25 mg tablet 1 tab PO TID anxiety 08/14/22 08/14/22 insulin degludec 200 unit/mL (3 160 unit subcut DAILY 08/14/22 08/14/22 mL) subcutaneous pen (Tresiba FlexTouch U-200 insulin) insulin lispro 100 unit/mL subcut 08/14/22 subcutaneous pen lorazepam 1 mg tablet 1 tab PO BID PRN panic attack 08/14/22 08/14/22 olanzapine 5 mg tablet 1 tab PO BID PRN Agitation 08/14/22 08/14/22 paliperidone palmitate 234 mg/1.5 1 syringe IM QMONTH 08/14/22 08/14/22 mL intramuscular syringe (Invega Sustenna) trazodone 150 mg tablet 1 tab PO BEDTIME PRN Insomnia 08/14/22 08/14/22 Allergies Allergy/AdvReac Type Severity Reaction Status Date / Time No Known Allergies Allergy Verified 02/14/23 22:47 [No Known Allergies*] Review of Systems Constitutional: Constitutional: Reports as per HPI, Denies chills, Denies fatigue, Denies fever(s) and Denies headache(s) ENT: Denies headache(s) Cardiovascular: Cardiovascular: Denies dyspnea Respiratory: Respiratory: Denies cough and Denies dyspnea Gastrointestinal: Gastrointestinal: Denies abdominal pain, Denies constipation and Denies vomiting Genitourinary: Genitourinary: Denies difficulty urinating and Denies dysuria Musculoskeletal: Musculoskeletal: Reports arthralgias, Denies joint swelling and Reports limited range of motion Neurologic: Denies headache(s) and Denies focal weakness Endocrine: Endocrine: Denies fatigue PMFSH Past Medical History 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 Concussion Depression Depression Diabetes mellitus, type 2 Diabetes type 2, uncontrolled Hyperglycemia PTSD (post-traumatic stress disorder) Social History Social History Household Members: Family Household Members Other:: 2 Housing: Apartment Do you presently have visiting nurse or other home services: No Alcohol intake: current Alcohol intake frequency: holidays/special occasions only Alcohol type: beer, wine and hard liquor Patient Tobacco Use Status: Current everyday Tobacco user Tobacco use type: Cigarette Cigarette Packs Per Day: 2 Cigarettes Per Day: 40.0 Years Smoked: 4 years e-Cigarette/Vaping Use: Currently Using Second Hand Smoke Exposure: No Substance Use Type: Caffiene Advance Directives: No Advance Directives Information Provided: Yes service: No Current occupational status: disabled 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 Sexual orientation: Don't Know Physical Exam Vital Signs: Vital Signs: Last Vital Signs Temp 97.9 F 02/14/23 22:43 Pulse 88 02/14/23 22:43 Resp 18 02/14/23 22:43 BP 142/85 H 02/14/23 22:43 Pulse Ox 95 02/14/23 22:43 O2 Del Method Room Air 02/14/23 22:43 BMI result Body Mass Index 44.8 Const: General: healthy appearing, comfortable, no acute distress, alert and awake Nutritional Appearance: well nourished Orientation/consciousness: patient oriented x3 HEENT: Head: Yes normocephalic and Yes atraumatic Throat: Yes posterior oropharynx normal Eyes: Eyelids: Yes eyelids normal Conjunctivae: conjunctivae normal Sclerae: sclerae normal Corneas: corneas normal Pupils: Equal, round and reactive pupils present EOM: EOMs intact bilaterally Neck: Neck: Yes full ROM Resp: Effort & Inspection: normal respiratory effort, able to speak in complete sentences, no audible wheezes and not labored Auscultation: clear to auscultation bilaterally Cardio: Rate: regular rate Rhythm: regular rhythm Skin: General skin exam: elasticity normal Neuro: General: patient oriented x3 Cranial nerves: Yes Equal, round and reactive pupils present and Yes Bilaterally intact EOM present Cognition (Neuro): normal cognition Extrem: Other: No obvious visual or palpable deformity to the right shoulder. Patient has good range of motion of the right shoulder. He is tender to palpation of the right anterior shoulder Medical Decision Making Medical Decision Making MDM Narrative: 22-year-old male presents for evaluation of right shoulder pain that radiates into his chest. He has no risk factors for ACS. His pain is reproducible on exam. Chest x-ray and x-ray other shoulder are unremarkable. Sinus rhythm without ST segment elevations or depressions. Differential Diagnosis Differential Diagnoses: The differential diagnosis associated with the presentation includes Right shoulder pain Arthritis Arthritis Calcific tendinitis Shoulder bursitis ACS less likely Lab Data Labs: Lab Results 02/14/23 Range/Units 23:04 COVID-19 (MAXIMUS) Negative (Negative) COVID-19 Clin Com See Note Independent Interpretation I performed an independent interpretation of an: EKG and Plain X-Ray (No evidence of osteoarthritis or shoulder fracture/dislocation. No acute disease the chest X) Interpretation: Normal sinus rhythm with a rate of 86 beats per minute. No ST segment elevations or depressions Radiology Impression Discussion of test interpretation with radiology: I have reviewed the radiologist's reading. Radiologist Impression: Normal right shoulder, no acute disease in the chest Discharge Plan Discharge Clinical Impression: Acute pain of right shoulder, Chest pain Patient Disposition: Home, Self-Care Instructions: Shoulder Pain (ED) Additional Instructions: Your workup in the emergency department today was reassuring. This includes your x-rays that did not show any deformity to right shoulder or chest. Your EKG did not show any concerning abnormalities You tested negative for COVID-19 Use ibuprofen/Tylenol for pain and follow-up with your primary doctor Prescriptions: No Action omeprazole 20 mg capsule,delayed release(DR/EC) 1 cap PO DAILY fenofibrate micronized 43 mg capsule 1 cap PO DAILY budesonide-formoterol [Symbicort] 80-4.5 mcg/actuation HFA aerosol inhaler 2 puff PO BID rosuvastatin 20 mg tablet 1 tab PO DAILY olanzapine 5 mg tablet 1 tab PO BID PRN (Reason: Agitation) divalproex 500 mg tablet,delayed release (DR/EC) 500 mg PO BID trazodone 150 mg tablet 1 tab PO BEDTIME PRN (Reason: Insomnia) hydroxyzine HCl 25 mg tablet 1 tab PO TID insulin lispro 100 unit/mL insulin pen subcut bupropion HCl 150 mg tablet extended release 24 hr 1 tab PO QAM insulin degludec [Tresiba FlexTouch U-200] 200 unit/mL (3 mL) insulin pen 160 unit subcut DAILY Trulicity 0.75 mg/0.5 mL pen injector 0.75 mg subcut QWEEK Invega Sustenna 234 mg/1.5 mL syringe 1 syringe IM QMONTH lorazepam 1 mg tablet 1 tab PO BID PRN (Reason: panic attack)
[2023-02-15 00:05] VITALS: BP 111/46; PULSE 71; RESP 16; TEMP 36.6; O2SAT 98
== END 2023-02-15 00:31 | disposition home or self-care (01) ==
PROVIDERS: Emergency Provider Internal Medicine; PCP General Practice
DX: R07.9 Chest pain, unspecified (principal); M25.511 Pain in right shoulder; Z20.822 Contact with and (suspected) exposure to COVID-19; E11.9 Type 2 diabetes mellitus without complications; F17.210 Nicotine dependence, cigarettes, uncomplicated; Z79.899 Other long term (current) drug therapy; Z79.4 Long term (current) use of insulin
CPT/HCPCS: 71045; 73030; 87635; 93005; 99283; 99284

== ENCOUNTER 2023-02-19 13:58 | Inpatient (IN) | payer OTHER, MEDICAID, SELFPAY ==
[2023-02-19 14:08] VITALS: BP 122/81; BP 140/96; PULSE 102; PULSE 106; RESP 18; TEMP 36.6; O2SAT 97; O2SAT 98; BMI 46.1
[2023-02-19 14:37] LABS: Appearance Urine Clear; Color Urine Yellow; Glucose Urine UA >=1000 mg/dL (Negative); Leukocyte Esterase Urine Negative (Negative); Nitrite Urine Negative (Negative); PH 6.5 (5.0-9.0); Specific Gravity - Urine >= 1.030 (1.005-1.025); UMIC TRIGGER UACC YES; Urine Blood Negative (Negative); Urine Ketones 15 mg/dL (Negative); Urine Protein Negative (Neg-Trace)
[2023-02-19 14:46] LABS: Amphetamine Screen Urine Not Detected (Not Detect); Barbiturates, Urine Not Detected (Not Detect); Benzodiazepines Screen Urine Not Detected (Not Detect); Cannabinoid Screen Urine Not Detected (Not Detect); Cocaine Screen Urine Not Detected (Not Detect); Opiate Screen Urine Not Detected (Not Detect); Phencyclidine Screen Urine Not Detected (Not Detect)
[2023-02-19 14:57] LABS: Bacteria Urine None Seen (None Seen); Hyaline Casts Urine 0-2 /LPF (0-2); RBC Urine 0-2 /HPF (0-2); UACC Culture Trigger YES
--- NOTE | 2023-02-19 15:01 | ED.PSYCH ---
HPI - Psych General Chief Complaint: Psychiatric Symptoms Stated Complaint: SI w/ plan, HI w/ plan, seeking help per EMS Time Seen by Provider: 02/19/23 14:05 Source: patient Mode of arrival: EMS Limitations: no limitations History of Present Illness HPI Narrative: 22 yo male with PMH of DM, asthma, schizoaffective disorder, BPD here with c/o SI/HI he states he has no medical concerns and has a safe place to stay. He denies drug use to me. He wants to talk to crisis. He cannot tell me what medications he takes MD complaint: suicidal ideation and feels depressed Onset (ago): week(s) (1) Duration: getting worse History of same: Yes Relieving factors: none Exacerbating factors: other Context: significant life stressor Associated psychiatric symptoms: depression, suicidal ideation and homicidal ideation Associated symptoms: denies other symptoms If self harm: admits thoughts of self harm and has plan Related Data Home Medications Medication Instructions Recorded Confirmed budesonide-formoterol HFA 80 2 puff PO BID 02/24/22 08/14/22 mcg-4.5 mcg/actuation aerosol inhaler (Symbicort) fenofibrate micronized 43 mg 1 cap PO DAILY 02/24/22 08/14/22 capsule omeprazole 20 mg capsule,delayed 1 cap PO DAILY 02/24/22 08/14/22 release rosuvastatin 20 mg tablet 1 tab PO DAILY 02/24/22 08/14/22 bupropion HCl 150 mg 24 hr tablet, 1 tab PO QAM depressive disorder 08/14/22 08/14/22 extended release divalproex 500 mg tablet,delayed 500 mg PO BID 08/14/22 08/14/22 release dulaglutide 0.75 mg/0.5 mL 0.75 mg subcut QWEEK 08/14/22 08/14/22 [facility] hydroxyzine HCl 25 mg tablet 1 tab PO TID anxiety 08/14/22 08/14/22 insulin degludec 200 unit/mL (3 160 unit subcut DAILY 08/14/22 08/14/22 mL) subcutaneous pen (Tresiba FlexTouch U-200 insulin) insulin lispro 100 unit/mL subcut 08/14/22 subcutaneous pen lorazepam 1 mg tablet 1 tab PO BID PRN panic attack 08/14/22 08/14/22 olanzapine 5 mg tablet 1 tab PO BID PRN Agitation 08/14/22 08/14/22 paliperidone palmitate 234 mg/1.5 1 syringe IM QMONTH 08/14/22 08/14/22 mL intramuscular syringe (Invega Sustenna) trazodone 150 mg tablet 1 tab PO BEDTIME PRN Insomnia 08/14/22 08/14/22 Allergies Allergy/AdvReac Type Severity Reaction Status Date / Time No Known Allergies Allergy Verified 02/14/23 22:47 [No Known Allergies*] Review of Systems Review of Systems: Constitutional : No Fever, No Chills ENT/Mouth : No Ear Pain, No Nasal Congestion, No sore throat Eyes: No Eye Pain, No Swelling, No Redness Cardiovascular : No Chest Pain, No SOB Respiratory : No Cough, No Sputum, No Dyspnea Gastrointestinal : No Nausea, No Vomiting, No Diarrhea, No Hematochezia, No Melena Genitourinary : No Dysuria, No Urinary Frequency, No Hematuria Musculoskeletal : No Myalgias Skin : No Skin Lesions, No rash Neuro : No Weakness, No Numbness, No Paresthesias, No Dizziness, No Headache Psych : positive Anxiety, positive Depression, positive SI/HI All other systems reviewed and are negative PMFSH Past Medical History Attestation statement: The following information was validated with the patient. Source: old records reviewed 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 Concussion Depression Depression Diabetes mellitus, type 2 Diabetes type 2, uncontrolled Hyperglycemia PTSD (post-traumatic stress disorder) Social History Social History Household Members: Family Household Members Other:: 2 Housing: Apartment Do you presently have visiting nurse or other home services: No Alcohol intake: current Alcohol intake frequency: holidays/special occasions only Alcohol type: beer, wine and hard liquor Patient Tobacco Use Status: Current everyday Tobacco user Tobacco use type: Cigarette Cigarette Packs Per Day: 2 Cigarettes Per Day: 40.0 Years Smoked: 4 years e-Cigarette/Vaping Use: Currently Using Second Hand Smoke Exposure: No Substance Use Type: Caffiene Advance Directives: No Advance Directives Information Provided: No service: No Current occupational status: disabled 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 Oriented X3. No acute distress. calm and cooperative asking for nicotine gum 4mg Eyes: Pupils equal, round and reactive to light. ENT: Pharynx normal. Neck: Normal inspection. Neck supple. CVS: Normal heart rate and rhythm. Pulses normal. Respiratory: No respiratory distress. Breath sounds normal. Abdomen: Soft and nontender. Skin: Skin warm and dry. Normal skin color. Normal skin turgor. Extremities: No lower extremity edema. No calf ttp Neuro: Oriented X 3. No motor deficit. No sensory deficit. CN2-12 intact Course Course Course Narrative: Physician observation started at 330pm. Patient placed in physician observation because the patient needed more time for CARE team to asses the need for psych admission. At the time observation was started the patient's vitals were stable, patient is alert and oriented, Neuro: nonfocal, CV RRR, Lungs clear Medical Decision Making Medical Decision Making [facility] Narrative: 22 yo male with PMH of DM, asthma, schizoaffective disorder, BPD here with c/o SI/HI he denies any medical issues or complaints at this time I am going to obtain basic labs, order sliding scale and home medications, and nicotine gum refer to CARE team Differential Diagnosis Differential Diagnoses: The differential diagnosis associated with the presentation includes cluster disorder, depression, non compliance, suicidal ideation Admission/Observation Consideration of admission/observation: Escalation of care including admission/observation considered Consult Healthcare Provider Management of the patient was discussed with: Behavioral Health Provider Lab Data [facility] Lab Attestation statement: I reviewed the patient's lab results. 02/19/23 15:00 02/19/23 15:00 Labs: Lab Results 02/19/23 02/19/23 02/19/23 Range/Units 14:30 14:30 15:00 WBC (4.8-10.8) X10*3/uL RBC (4.60-5.80) X10*6/uL Hgb (14.0-18.0) g/dl Hct (42.0-52.0) % MCV (80.0-98.0) fL MCH (27.0-33.0) pg MCHC (31.0-36.0) g/dl RDW (11.0-16.0) % Plt Count (160-400) X10*3/uL MPV (9.4-12.4) fL Immature Gran % (Auto) (0.0-0.4) % Neut % (Auto) (45-73) % Lymph % (Auto) (20-40) % Luna % (Auto) (2-11) % Eos % (Auto) (0-4) % Baso % (Auto) (0-2) % Lymph # (Auto) (1.2-4.9) X10*3/uL Luna # (Auto) (0.1-1.2) X10*3/uL Eos # (Auto) (0.0-0.4) X10*3/uL Baso # (Auto) (0.0-0.2) X10*3/uL Abs Immat Gran (auto) (0.00-0.03) X10*3/uL Absolute Neuts (auto) (2.0-8.3) x10*3/uL Absolute Nucleated RBC (0.0-0.012) X10*3/uL Nucleated RBC % (auto) (0.0-0.2) /100WBC Sodium (135-145) mmol/L Potassium (3.3-5.1) mmol/L Chloride (96-108) mmol/L Carbon Dioxide (22-29) mmol/L Anion Gap (12-20) BUN (9-16) mg/dL Creatinine (0.5-1.4) mg/dL Estim Creat Clear Calc Estimated GFR Random Glucose (60-115) mg/dL Calcium (8.4-10.2) mg/dL Total Bilirubin (0.0-1.0) mg/dL Direct Bilirubin (0.0-0.5) mg/dL AST (5-37) U/L ALT (0-40) U/L Alkaline Phosphatase (39-117) U/L Total Protein (6.5-8.0) g/dL Albumin (3.5-5.0) g/dL Urine Color Yellow Urine Appearance Clear Urine pH 6.5 (5.0-9.0) Ur Specific [place] >= 1.030 H (1.005-1.025) Urine Protein Negative (Neg-Trace) mg/dL Urine Glucose (UA) >=1000 H (Negative) mg/dL Urine Ketones 15 (Negative) mg/dL Urine Blood Negative (Negative) Urine Nitrite Negative (Negative) Ur Leukocyte Esterase Negative (Negative) Urine RBC 0-2 (0-2) /HPF Urine WBC 11-20 H (0-5) /HPF Ur Squamous Epith Cells 3-5 (0-2) /HPF Urine Bacteria None Seen (None Seen) Hyaline Casts 0-2 (0-2) /LPF Salicylates < 5.0 L (15-30) mg/dL Urine Opiates Screen Not Detected (Not Detect) Urine Fentanyl Screen Not Detected (Not Detect) Acetaminophen < 17 (<30) mcg/mL Ur Barbiturates Screen Not Detected (Not Detect) Valproic Acid (50.0-100.0) mcg/mL Ur Phencyclidine Scrn Not Detected (Not Detect) Ur Amphetamines Screen Not Detected (Not Detect) U Benzodiazepines Scrn Not Detected (Not Detect) Urine Cocaine Screen Not Detected (Not Detect) U Marijuana (THC) Screen Not Detected (Not Detect) Ethyl Alcohol mg/dL 02/19/23 02/19/23 02/19/23 Range/Units 15:00 15:00 15:00 WBC 9.5 (4.8-10.8) X10*3/uL RBC 5.75 (4.60-5.80) X10*6/uL Hgb 17.0 (14.0-18.0) g/dl Hct 47.9 (42.0-52.0) % MCV 83.3 (80.0-98.0) fL MCH 29.6 (27.0-33.0) pg MCHC 35.5 (31.0-36.0) g/dl RDW 11.7 (11.0-16.0) % Plt Count 233 (160-400) X10*3/uL MPV 10.8 (9.4-12.4) fL Immature Gran % (Auto) 0.4 (0.0-0.4) % Neut % (Auto) 59.9 (45-73) % Lymph % (Auto) 29.5 (20-40) % Luna % (Auto) 8.6 (2-11) % Eos % (Auto) 1.2 (0-4) % Baso % (Auto) 0.4 (0-2) % Lymph # (Auto) 2.8 (1.2-4.9) X10*3/uL Luna # (Auto) 0.8 (0.1-1.2) X10*3/uL Eos # (Auto) 0.1 (0.0-0.4) X10*3/uL Baso # (Auto) 0.0 (0.0-0.2) X10*3/uL Abs Immat Gran (auto) 0.04 H (0.00-0.03) X10*3/uL Absolute Neuts (auto) 5.7 (2.0-8.3) x10*3/uL Absolute Nucleated RBC 0.000 (0.0-0.012) X10*3/uL Nucleated RBC % (auto) 0.0 (0.0-0.2) /100WBC Sodium 137 (135-145) mmol/L Potassium 3.8 (3.3-5.1) mmol/L Chloride 104 (96-108) mmol/L Carbon Dioxide 21 L (22-29) mmol/L Anion Gap 16 (12-20) BUN 9 (9-16) mg/dL Creatinine 0.85 (0.5-1.4) mg/dL Estim Creat Clear Calc 192.5 Estimated GFR > 60 Random Glucose 475 H* (60-115) mg/dL Calcium 10.5 H D (8.4-10.2) mg/dL Total Bilirubin 0.6 (0.0-1.0) mg/dL Direct Bilirubin 0.2 (0.0-0.5) mg/dL AST 12 (5-37) U/L ALT 19 (0-40) U/L Alkaline Phosphatase 99 (39-117) U/L Total Protein 7.5 (6.5-8.0) g/dL Albumin 4.3 (3.5-5.0) g/dL Urine Color Urine Appearance Urine pH (5.0-9.0) Ur Specific [place] (1.005-1.025) Urine Protein (Neg-Trace) mg/dL Urine Glucose (UA) (Negative) mg/dL Urine Ketones (Negative) mg/dL Urine Blood (Negative) Urine Nitrite (Negative) Ur Leukocyte Esterase (Negative) Urine RBC (0-2) /HPF Urine WBC (0-5) /HPF Ur Squamous Epith Cells (0-2) /HPF Urine Bacteria (None Seen) Hyaline Casts (0-2) /LPF Salicylates (15-30) mg/dL Urine Opiates Screen (Not Detect) Urine Fentanyl Screen (Not Detect) Acetaminophen (<30) mcg/mL Ur Barbiturates Screen (Not Detect) Valproic Acid < 12.5 L (50.0-100.0) mcg/mL Ur Phencyclidine Scrn (Not Detect) Ur Amphetamines Screen (Not Detect) U Benzodiazepines Scrn (Not Detect) Urine Cocaine Screen (Not Detect) U Marijuana (THC) Screen (Not Detect) Ethyl Alcohol < 10 mg/dL External Record Review External record reviewed: Inpatient record Chronic Conditions Patient?s care impacted by: Diabetes Social Determinants Patient?s care significantly limited by Social Determinants of Health including: Problems related to primary support group Discharge Plan Discharge Clinical Impression: Suicidal ideation Patient Disposition: Still a Patient Prescriptions: No Action omeprazole 20 mg capsule,delayed release(DR/EC) 1 cap PO DAILY fenofibrate micronized 43 mg capsule 1 cap PO DAILY budesonide-formoterol [Symbicort] 80-4.5 mcg/actuation HFA aerosol inhaler 2 puff PO BID rosuvastatin 20 mg tablet 1 tab PO DAILY olanzapine 5 mg tablet 1 tab PO BID PRN (Reason: Agitation) divalproex 500 mg tablet,delayed release (DR/EC) 500 mg PO BID trazodone 150 mg tablet 1 tab PO BEDTIME PRN (Reason: Insomnia) hydroxyzine HCl 25 mg tablet 1 tab PO TID insulin lispro 100 unit/mL insulin pen subcut bupropion HCl 150 mg tablet extended release 24 hr 1 tab PO QAM insulin degludec [Tresiba FlexTouch U-200] 200 unit/mL (3 mL) insulin pen 160 unit subcut DAILY Trulicity 0.75 mg/0.5 mL pen injector 0.75 mg subcut QWEEK Invega Sustenna 234 mg/1.5 mL syringe 1 syringe IM QMONTH lorazepam 1 mg tablet 1 tab PO BID PRN (Reason: panic attack)
[2023-02-19 15:03] LABS: MANUAL DIFF FLAG NO
[2023-02-19 15:05] LABS: Basophils Percent Auto 0.4 % (0-2); Eosinophils Absolute Auto 0.1 X10*3/uL (0.0-0.4); Eosinophils Percent Auto 1.2 % (0-4); Hematocrit 47.9 % (42.0-52.0); Imm Gran Abs Auto 0.04 X10*3/uL (0.00-0.03); Imm Gran Pct Auto 0.4 % (0.0-0.4); Lymphocytes Absolute Auto 2.8 X10*3/uL (1.2-4.9); Lymphocytes Percent Auto 29.5 % (20-40); Mean Corpuscular HGB Conc 35.5 g/dl (31.0-36.0); Mean Corpuscular Hemoglobin 29.6 pg (27.0-33.0); Mean Corpuscular Volume 83.3 fL (80.0-98.0); Mean Platelet Volume 10.8 fL (9.4-12.4); Monocytes Absolute Auto 0.8 X10*3/uL (0.1-1.2); Monocytes Percent Auto 8.6 % (2-11); Neutrophils Absolute Auto 5.7 x10*3/uL (2.0-8.3); Neutrophils Percent Auto 59.9 % (45-73); Platelet Count 233 X10*3/uL (160-400); Red Blood Count 5.75 X10*6/uL (4.60-5.80); Red Cell Distribution Width 11.7 % (11.0-16.0); White Blood Count 9.5 X10*3/uL (4.8-10.8)
[2023-02-19 15:21] LABS: Valproate < 12.5 mcg/mL (50.0-100.0)
[2023-02-19 15:22] LABS: Alanine Aminotransferase 19 U/L (0-40); Albumin Level 4.3 g/dL (3.5-5.0); Alkaline Phosphatase 99 U/L (39-117); Anion Gap 16 (12-20); Aspartate Amino Transferase 12 U/L (5-37); Bilirubin Direct 0.2 mg/dL (0.0-0.5); Bilirubin Total 0.6 mg/dL (0.0-1.0); Blood Urea Nitrogen 9 mg/dL (9-16); Calcium 10.5 mg/dL (8.4-10.2); Carbon Dioxide 21 mmol/L (22-29); Chloride 104 mmol/L (96-108); Creatinine Clr Calc Pharmacy 192.5; Estimated Glomerular Filt Rate > 60; Ethanol < 10 mg/dL; Glucose Random 475 mg/dL (60-115); Potassium 3.8 mmol/L (3.3-5.1); Sodium 137 mmol/L (135-145); Total Protein 7.5 g/dL (6.5-8.0)
[2023-02-19 15:24] LABS: Acetaminophen LAB < 17 mcg/mL (<30); Salicylate < 5.0 mg/dL (15-30)
[2023-02-19] MEDS: Insulin Lispro 100 UNIT/ML 3 ML VIAL SUBCUT ×2 (15:38→21:14)
[2023-02-19] MEDS: Nicotine Polacrilex 2 MG GUM 4 MG BUCCAL (16:50)
--- NOTE | 2023-02-19 17:51 | PHA.MEDREC ---
Pharmacy Consult ? Medication Reconciliation Pharmacy has reviewed the medication reconciliation done by RN.
[2023-02-19 18:02] LABS: Glucose, Whole Blood 392 mg/dL (60-115)
[2023-02-19] MEDS: Insulin Lispro 100 UNIT/ML 3 ML VIAL 15 UNIT SUBCUT (18:09)
--- NOTE | 2023-02-19 18:36 | PC.NURSE ---
Williams arrived via EMS after calling himself and reproting SI/HI. Since arriving he has been pleasant and cooperative, laughing and joking with staff. BS have ranged from 373 with EMS to 483 at 1600 to 392 before dinner. Treated with 10U lispro at 1610 and 15U lispro before dinner. Williams has been eating multiple snacks since arriving and has requested 4 sandwiches, multiple cheese sticks, pudding, fabian maryam and crackers. Diabetic diet education given and PT responded I haven't eaten all day I'm starving.
[2023-02-19 20:59] LABS: Glucose, Whole Blood 310 mg/dL (60-115)
--- NOTE | 2023-02-19 21:18 | PC.NURSE ---
Patient is currently in bed resting quietly, no distress observed/reported, respiration +/=?non-labored bilaterally, POC @ 2054 was 310, covered with 8 units, compliant, behavior clam and quiet, med rec completed/pending provider's approval, patient is not compliant with his medication aeb by Valproic level 12.5, patient was assessed by care team, disposition is voluntary inpatient bed search, labs completed/resulted, will continue to monitor.
[2023-02-19 21:43] LABS: COVID-19 Test Negative (Negative); IDNOW Serial# BCCEAD1C
[2023-02-20 06:22] VITALS: BP 92/46; PULSE 80; RESP 16; TEMP 36.3; O2SAT 96
[2023-02-20] MEDS: Insulin Lispro 100 UNIT/ML 3 ML VIAL SUBCUT ×3 (07:25→20:53)
[2023-02-20 07:36] LABS: Glucose, Whole Blood 366 mg/dL (60-115)
[2023-02-20 12:38] LABS: Glucose, Whole Blood 485 mg/dL (60-115)
[2023-02-20] MEDS: Insulin Lispro 100 UNIT/ML 3 ML VIAL 15 UNIT SUBCUT (12:42)
[2023-02-20 12:55] LABS: Fentanyl, urine SEE COMMENTS (Not Detect)
[2023-02-20] MEDS: Nicotine Polacrilex 2 MG GUM 4 MG BUCCAL ×2 (14:58→18:17)
[2023-02-20 16:29] VITALS: BMI 43.9
--- NOTE | 2023-02-20 16:32 | PC.NURSE ---
Williams was admitted to m3 at 1415 from [facility] on CV for treatment of mood disorder and ptsd. Williams is alert and fully oriented. He was irritable and initially uncooperative with contraband search. With prompting he did comply. Pt threatened suicide at home and mother called for crisis evaluation. Mother reports pt has been taking meds inconsistently. Pt reports taking meds as prescribed. Depakote level <12.5 indicates noncompliance with meds. There continues to be a struggle in the home around how much food the patient is eating because pt reportedly overeats excessively, family runs out of food and patient's diabetes is uncontrolled. Patient has court scheduled for 02/28 for charges related to assaulting mother and sister recently. Pt denies anxiety related to this. I need to be here for help with my ptsd and my mood. Pt reports mood is depressed but appears bright in his interactions with peers. Insight is impaired. Williams denies hallucinations of any kind. He reports ideation to harm self and others with no plan or intent. He agrees to inform staff if he needs support maintaining safety on the unit. Appetite is good. He reports recent 15 lb weight loss. He denies issues with sleep. Focus is good. Pt smokes the equivalent of 3 packs of cigarettes and vape. He denies alcohol or drug use. Medical Issues?include uncontrolled diabetes, obesity and high triglycerides. He denies current physical complaint. Pt is placed on q 15 minute checks for safety.
[2023-02-20 17:20] LABS: Glucose, Whole Blood 554 mg/dL (60-115)
--- NOTE | 2023-02-20 17:33 | PC.NURSE ---
At 1720 poc 554. Pt tired but otherwise assymptomatic. He states, that's how it always is. I only had one juice. Meaghan Tapia [employer]PR[employer]ER ART informed, consult to jesenia and josseline reid. Dr Haritha STRE[address] informed. Radha Canela Nurse Investigator Internal Affairs informed.
--- NOTE | 2023-02-20 17:38 | PM.EVENT ---
Event Note Date of Service: 02/20/23 Event Note: RN called patient blood sugar 554 patient noted to have elevated blood sugars in 300-400 range since admission, Now bumped to > 500 home medication Trulicity 4.5 mg Q weekly and Tresiba 160 units subQ daily is on hold will increase dose of insulin sliding scale and resume Tresiba, continue diabetic diet, and close blood sugar monitoring. Time Spent With Patient Time: Total time managing care of this patient today ____ minutes.
[2023-02-20 20:00] VITALS: BP 110/70; PULSE 84; RESP 18; O2SAT 99
[2023-02-20 20:41] LABS: Glucose, Whole Blood 431 mg/dL (60-115)
[2023-02-20] MEDS: Prazosin HCL 1 MG CAPSULE 2 MG PO (20:51)
[2023-02-20] MEDS: metFORMIN HCl ER 500 MG TAB.ER.24H 1000 MG PO (20:51)
[2023-02-20] MEDS: NaPROXEN 250 MG TABLET PO (20:51)
[2023-02-20] MEDS: Divalproex Sodium 500 MG TABLET.DR 1000 MG PO (20:51)
[2023-02-20] MEDS: HaloperidoL 5 MG TABLET 10 MG PO (20:51)
--- NOTE | 2023-02-20 23:42 | PC.NURSE ---
At 2015 patient's blood glucose 413, Chastity Chaves notified. No addition insulin added to scheduled dose of 16 units.
[2023-02-21 06:00] VITALS: BP 127/68; PULSE 92; RESP 18; TEMP 36.5; O2SAT 98
[2023-02-21 08:43] LABS: Glucose, Whole Blood 415 mg/dL (60-115)
[2023-02-21 09:14] LABS: Estimated Average Glucose 315 mg/dL; Hemoglobin A1c % 12.6 %
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
[2023-02-21] MEDS: Insulin Lispro 100 UNIT/ML 3 ML VIAL SUBCUT ×4 (09:53→21:32)
[2023-02-21 10:14] LABS: Alanine Aminotransferase 16 U/L (0-40); Albumin Level 3.9 g/dL (3.5-5.0); Alkaline Phosphatase 77 U/L (39-117); Anion Gap 15 (12-20); Aspartate Amino Transferase 10 U/L (5-37); Bilirubin Total 0.6 mg/dL (0.0-1.0); Blood Urea Nitrogen 12 mg/dL (9-16); Calcium 9.7 mg/dL (8.4-10.2); Carbon Dioxide 22 mmol/L (22-29); Chloride 105 mmol/L (96-108); Cholesterol 187 mg/dL (<200); Creatinine Clr Calc Pharmacy 191.7; Estimated Glomerular Filt Rate > 60; Glucose Fasting 361 mg/dL (60-99); HDL Cholesterol 33 mg/dL (>40); LDL Cholesterol Calculated 89 mg/dL (<100); Potassium 4.1 mmol/L (3.3-5.1); Sodium 138 mmol/L (135-145); Total Protein 6.8 g/dL (6.5-8.0); Triglycerides 328 mg/dL (<150)
[2023-02-21 10:27] LABS: Thyroid Stimulating Hormone 2.08 uIU/mL (0.32-4.0)
[2023-02-21 10:36] LABS: Folate 12.1 ng/mL (> or = 4.0); Vitamin B12 592 pg/mL (200-900)
[2023-02-21 12:46] LABS: Glucose, Whole Blood 436 mg/dL (60-115)
[2023-02-21] MEDS: Nicotine Polacrilex 2 MG GUM 4 MG BUCCAL ×2 (12:52→14:54)
[2023-02-21] MEDS: hydrOXYzine HCL 50 MG TABLET PO (12:52)
[2023-02-21] MEDS: Atorvastatin Calcium 80 MG TABLET PO (12:53)
[2023-02-21] MEDS: metFORMIN HCl ER 500 MG TAB.ER.24H 1000 MG PO ×2 (12:53→21:32)
[2023-02-21] MEDS: NaPROXEN 250 MG TABLET PO ×2 (12:53→21:32)
[2023-02-21] MEDS: buPROPion HCl XL 150 MG TAB.ER.24H PO (12:53)
[2023-02-21] MEDS: Divalproex Sodium 500 MG TABLET.DR PO (12:59)
[2023-02-21] MEDS: Fluticasone/Vilanterol 100/25 BLST.W.DEV 1 PUFF INHALE (13:43)
[2023-02-21 16:35] LABS: Glucose, Whole Blood > 600 mg/dL (60-115)
[2023-02-21 16:35] LABS: Glucose, Whole Blood > 600 mg/dL (60-115)
--- NOTE | 2023-02-21 16:56 | PC.NURSE ---
pt had a POC over 600. pt was given the regular 16 units of insulin lispro. MD was notified. Hospitalist ordered an extra 20 units and a BMP.
[2023-02-21] MEDS: Insulin Lispro 100 UNIT/ML 3 ML VIAL 15 UNIT SUBCUT (17:14)
--- NOTE | 2023-02-21 17:26 | P.EN_ITS ---
Event Note Date of Service: 02/21/23 Event Note: Pt with POC >600. Pt asymptomatic. Reports glucose at home is always over 600 and is noncompliant with insulin at home. Given total of 31 units humalog. BMP ordered to evaluate for any HHS/DKA. However, I believe his body has likely compensated from being chronically hyperglycemia. We did discuss the risks of uncontrolled type 2 diabetes and he again states that he feels fine. I have discussed with him that the complications of diabetes are insidious and de veloped over long periods of noncompliance and hyperglycemia. Reviewed various complications of uncontrolled type 2 diabetes. Patient did refuse his Lantus this morning stating that it never works. Discussed again these risks and patient is agreeable to taking a half dose of Lantus right now and 60 units Lantus is ordered and is agreeable to the full 112 units of Lantus tomorrow morning. Continue sliding scale. Compliance with diabetic diet recommended. Time Spent With Patient Time: Total time managing care of this patient today ____ minutes.
[2023-02-21] MEDS: Insulin Glargine,Hum.rec.anlog 100 UNIT/ML 10 ML VIAL 60 UNIT SUBCUT (17:42)
[2023-02-21 18:00] VITALS: BP 130/72; PULSE 83; TEMP 36.7; O2SAT 97
[2023-02-21 18:10] LABS: Anion Gap 16 (12-20); Blood Urea Nitrogen 16 mg/dL (9-16); Calcium 10.1 mg/dL (8.4-10.2); Carbon Dioxide 24 mmol/L (22-29); Chloride 97 mmol/L (96-108); Estimated Glomerular Filt Rate > 60; Glucose Random 665 mg/dL (60-115); Potassium 4.5 mmol/L (3.3-5.1); Sodium 132 mmol/L (135-145)
[2023-02-21 18:44] LABS: Glucose, Whole Blood 538 mg/dL (60-115)
[2023-02-21 21:25] LABS: Glucose, Whole Blood 416 mg/dL (60-115)
[2023-02-21] MEDS: Divalproex Sodium 500 MG TABLET.DR 1000 MG PO (21:31)
[2023-02-21] MEDS: HaloperidoL 5 MG TABLET 10 MG PO (21:31)
[2023-02-21] MEDS: Prazosin HCL 1 MG CAPSULE 2 MG PO (21:31)
[2023-02-21] MEDS: Insulin Lispro 100 UNIT/ML 3 ML VIAL 10 UNIT SUBCUT (21:33)
--- NOTE | 2023-02-21 21:42 | PC.NURSE ---
pt blood sugar have been trending downwards. 538 at 1830 and 416 at 0. hospitalist advised pt to take lantus scheduled in the morning. hospitalist ordered 60 unit of lantus for tonight and an extra 10 units of liprso 4 times a day.
[2023-02-22 07:56] LABS: Glucose, Whole Blood 331 mg/dL (60-115)
[2023-02-22 08:00] VITALS: BP 106/66; PULSE 90; RESP 18; TEMP 36.7; O2SAT 98
[2023-02-22] MEDS: metFORMIN HCl ER 500 MG TAB.ER.24H 1000 MG PO ×2 (09:27→20:15)
--- NOTE | 2023-02-22 09:27 | HO.PSYCHPN ---
Subjective Subjective Date of Service: 02/22/23 Reason For Visit: Psychosis Subjective Notes: Conditional Voluntary Interim History: Reviewed in team and Dr. Pritchard. Patient reports feeling good today. Denies any depression or anxiety. Patient reports he plans on speaking with his mother about receiving more services through [facility]. Patient reports if he feels stressed in the future, I'm going to play basketball. I would never kill myself . He is requesting that T/W not change any of his medications. He plans on following up with his PCP regarding his blood sugar this month. Pt requesting to be discharged home tomorrow. Patient has appointment with [facility] on 02/24/2023. Medication Compliance: Yes Side effects from medications: No Attending Groups: No Review of Systems Constitutional: Reports as per HPI Eyes: Reports as per HPI Reports as per HPI Cardiovascular: Reports as per HPI Respiratory: Reports as per HPI Gastrointestinal: Reports as per HPI Genitourinary: Reports as per HPI Musculoskeletal: Reports as per HPI Skin/Breast: Reports as per HPI Reports as per HPI Psychiatric: Reports as per HPI Endocrine: Reports as per HPI Hematologic/Lymphatic: Reports as per HPI Allergic/Immunologic: Reports as per HPI Mental Status Exam Mental Status Exam Narrative: Pt is alert and oriented; behavior is cooperative and calm; dressed in casual attire; mood is described as good ; eye contact appropriate; Speech is normal rate, volume and prosody and not pressured; no psychomotor agitation/retardation present; thought process is organized and goal directed; Thought content is on tx; otherwise pertinent to relevant topics and without any delusional content, paranoid ideations or grandiosity; denies SI/HI. There is no evidence of perceptual disturbance.Patients insight and judgment are fair. Diagnostics Vital Signs (24Hr): Vital Signs - 24 hr 02/21/23 18:00 Temperature 98.1 F Pulse Rate 83 Blood Pressure 130/72 Pulse Oximetry 97 Oxygen Delivery Method Room Air BMI result Body Mass Index 43.9 Labs 02/19/23 15:00 02/21/23 17:29 Labs: Laboratory Results - last 48 hr 02/19/23 02/20/23 02/20/23 14:30 12:34 17:16 Sodium Potassium Chloride Carbon Dioxide Anion Gap BUN Creatinine Estim Creat Clear Calc Estimated GFR POC Glucose 485 H* 554 H* Random Glucose Fasting Glucose Estimat Average Glucose Hemoglobin A1c % Calcium Total Bilirubin AST ALT Alkaline Phosphatase Total Protein Albumin Triglycerides Cholesterol LDL Cholesterol, Calc HDL Cholesterol Vitamin B12 Folate TSH Urine Fentanyl Screen SEE COMMENTS 02/20/23 02/21/23 02/21/23 20:36 08:29 08:29 Sodium 138 Potassium 4.1 Chloride 105 Carbon Dioxide 22 Anion Gap 15 BUN 12 Creatinine 0.83 Estim Creat Clear Calc 191.7 Estimated GFR > 60 POC Glucose 431 H* Random Glucose Fasting Glucose 361 H* Estimat Average Glucose 315 Hemoglobin A1c % 12.6 Calcium 9.7 D Total Bilirubin 0.6 AST 10 ALT 16 Alkaline Phosphatase 77 Total Protein 6.8 Albumin 3.9 Triglycerides 328 H Cholesterol 187 LDL Cholesterol, Calc 89 HDL Cholesterol 33 L Vitamin B12 Folate TSH 2.08 Urine Fentanyl Screen 02/21/23 02/21/23 02/21/23 08:29 08:40 12:41 Sodium Potassium Chloride Carbon Dioxide Anion Gap BUN Creatinine Estim Creat Clear Calc Estimated GFR POC Glucose 415 H* 436 H* Random Glucose Fasting Glucose Estimat Average Glucose Hemoglobin A1c % Calcium Total Bilirubin AST ALT Alkaline Phosphatase Total Protein Albumin Triglycerides Cholesterol LDL Cholesterol, Calc HDL Cholesterol Vitamin B12 592 Folate 12.1 TSH Urine Fentanyl Screen 02/21/23 02/21/23 02/21/23 16:26 16:30 17:29 Sodium 132 L Potassium 4.5 Chloride 97 Carbon Dioxide 24 Anion Gap 16 BUN 16 Creatinine 1.17 Estim Creat Clear Calc 136.0 Estimated GFR > 60 POC Glucose > 600 H* > 600 H* Random Glucose 665 H* Fasting Glucose Estimat Average Glucose Hemoglobin A1c % Calcium 10.1 Total Bilirubin AST ALT Alkaline Phosphatase Total Protein Albumin Triglycerides Cholesterol LDL Cholesterol, Calc HDL Cholesterol Vitamin B12 Folate [facility] Urine Fentanyl Screen 02/21/23 02/21/23 02/22/23 18:37 21:19 07:48 Sodium Potassium Chloride Carbon Dioxide Anion Gap BUN Creatinine Estim Creat Clear Calc Estimated GFR POC Glucose 538 H* 416 H* 331 H Random Glucose Fasting Glucose Estimat Average Glucose Hemoglobin A1c % Calcium Total Bilirubin AST ALT Alkaline Phosphatase Total Protein Albumin Triglycerides Cholesterol LDL Cholesterol, Calc HDL Cholesterol Vitamin B12 Folate TSH Urine Fentanyl Screen Medications Medications Current Medications Acetaminophen (Acetaminophen 325 Mg Tablet) 650 mg PO Q6H PRN PRN Reason: Headache/Pain Mild Scale (1-3) Al Hydroxide/Mg Hydroxide (Magnesium Hydrox/Alum Hydrox 30 Ml Oral.Susp) 30 ml PO Q6H PRN PRN Reason: Heartburn/Nausea Atorvastatin Calcium (Atorvastatin Calcium 80 Mg Tablet) 80 mg PO DAILY [facility] Last Admin: 02/21/23 12:53 Dose: 80 mg Bupropion HCl (Bupropion Hcl Xl 150 Mg Tab.Er.24h) 150 mg PO DAILY [facility] Last Admin: 02/21/23 12:53 Dose: 150 mg Divalproex Sodium (Divalproex Sodium 500 Mg Tablet.) 1,000 mg PO BEDTIME [facility] Last Admin: 02/21/23 21:31 Dose: 1,000 mg Divalproex Sodium (Divalproex Sodium 500 Mg Tablet.Dr) 500 mg PO DAILY [facility] Last Admin: 02/21/23 12:59 Dose: 500 mg Fluticasone/Vilanterol (Fluticasone/Vilanterol 100/25 Blst.W.Dev) 1 puff INHALE RDAILY [facility] Last Admin: 02/21/23 13:43 Dose: 1 puff Haloperidol (Haloperidol 5 Mg Tablet) 10 mg PO BEDTIME [facility] Last Admin: 02/21/23 21:31 Dose: 10 mg Hydroxyzine HCl (Hydroxyzine Hcl 50 Mg Tablet) 50 mg PO TID PRN PRN Reason: Anxiety Last Admin: 02/21/23 12:52 Dose: 50 mg Insulin Glargine (Insulin Glargine,Hum.Rec.Anlog 100 Unit/Ml 10 Ml Vial) 112 unit SUBCUT DAILY [facility] Last Admin: 02/21/23 12:54 Dose: Not Given Insulin Human Lispro (Insulin Lispro 100 Unit/Ml 3 Ml Vial) 0 unit SUBCUT QIDACHS [facility]; Protocol Last Admin: 02/21/23 21:32 Dose: 16 unit Insulin Human Lispro (Insulin Lispro 100 Unit/Ml 3 Ml Vial) 10 unit SUBCUT QIDACHS [facility] Last Admin: 02/21/23 21:33 Dose: 10 unit Magnesium Hydroxide (Milk Of Magnesia 30 Ml Oral.Susp) 30 ml PO DAILY PRN PRN Reason: Constipation Metformin HCl (Metformin Hcl Er 500 Mg Tab.Er.24h) 1,000 mg PO BID [facility] Last Admin: 02/21/23 21:32 Dose: 1,000 mg Naproxen (Naproxen 250 Mg Tablet) 250 mg PO BID [facility] Last Admin: 02/21/23 21:32 Dose: 250 mg Nicotine Polacrilex (Nicotine Polacrilex 2 Mg Gum) 4 mg BUCCAL Q1H PRN PRN Reason: Nicotine Cravings Last Admin: 02/21/23 14:54 Dose: 4 mg Non-Formulary Medication (Dulaglutide [Trulicity]) 4.5 mg SUBCUT Q7D [facility] Non-Formulary Medication (Fenofibrate Micronized) 1 cap PO DAILY [facility] Prazosin HCl (Prazosin Hcl 1 Mg Capsule) 2 mg PO BEDTIME [facility]; Protocol Last Admin: 02/21/23 21:31 Dose: 2 mg Trazodone HCl (Trazodone Hcl 50 Mg Tablet) 150 mg PO BEDTIME PRN PRN Reason: Insomnia Allergies Allergies Allergy/AdvReac Type Severity Reaction Status Date / Time No Known Allergies Allergy Verified 02/14/23 22:47 [No Known Allergies*] Assessment & Plan Assessment & Plan (1) Schizoaffective disorder, bipolar type: Status: Acute Code(s): F25.0 - Schizoaffective disorder, bipolar type (2) Suicidal ideation: Status: Acute Code(s): R45.851 - Suicidal ideations (3) Borderline personality disorder in adult: Status: Acute Code(s): F60.3 - Borderline personality disorder Plan Patient is a 22 year old male with hx of Schizoaffectice d/o and Boarderline Personality d/o who was brought in by ambulance after his mother contacted 911 when pt left home and threatened to kill self d/t increased depressive symptoms. Plan: CV 15 minute safety checks Obtain collateral continue home medications Educate regarding diabetes Educate regarding nutrition 02/22: Patient reports feeling good today. Denies any depression or anxiety. Patient reports he plans on speaking with his mother about receiving more services through [facility]. Patient reports if he feels stressed in the future, I'm going to play basketball. I would never kill myself . He is requesting that T/W not change any of his medications. He plans on following up with his PCP regarding his blood sugar this month. Pt requesting to be discharged home tomorrow. Pt denies SI/HI/VH/AH. Plan to discharge pt tomorrow.Pt has appointment with [facility] on 02/24/2023. Patient educated on: diagnosis, medication risk/benefits and therapeutic strategies Informed Consent: understands Reason for continued inpatient stay Substantial Risk for: stable for discharge Time Spent With Patient Time: Total time managing care of this patient today _30___ minutes.
[2023-02-22] MEDS: buPROPion HCl XL 150 MG TAB.ER.24H PO (09:28)
[2023-02-22] MEDS: NaPROXEN 250 MG TABLET PO ×2 (09:29→19:56)
[2023-02-22] MEDS: Atorvastatin Calcium 80 MG TABLET PO (09:29)
[2023-02-22] MEDS: Divalproex Sodium 500 MG TABLET.DR PO (09:29)
[2023-02-22] MEDS: Insulin Glargine,Hum.rec.anlog 100 UNIT/ML 10 ML VIAL 112 UNIT SUBCUT (09:30)
[2023-02-22] MEDS: Insulin Lispro 100 UNIT/ML 3 ML VIAL 10 UNIT SUBCUT ×2 (09:42→13:16)
[2023-02-22] MEDS: Insulin Lispro 100 UNIT/ML 3 ML VIAL SUBCUT ×4 (09:43→20:14)
[2023-02-22 12:46] LABS: Glucose, Whole Blood 502 mg/dL (60-115)
[2023-02-22 14:02] LABS: Glucose, Whole Blood 442 mg/dL (60-115)
[2023-02-22] MEDS: Nicotine Polacrilex 2 MG GUM 4 MG BUCCAL (14:54)
[2023-02-22 17:17] LABS: Glucose, Whole Blood 503 mg/dL (60-115)
[2023-02-22] MEDS: Insulin Lispro 100 UNIT/ML 3 ML VIAL 20 UNIT SUBCUT ×2 (17:48→20:14)
[2023-02-22] MEDS: Acetaminophen 325 MG TABLET 650 MG PO (19:56)
[2023-02-22 20:00] VITALS: BP 134/98; PULSE 110; TEMP 36.3; O2SAT 97
[2023-02-22 20:04] LABS: Glucose, Whole Blood 411 mg/dL (60-115)
[2023-02-22] MEDS: HaloperidoL 5 MG TABLET 10 MG PO (20:15)
[2023-02-22] MEDS: Prazosin HCL 1 MG CAPSULE 2 MG PO (20:15)
[2023-02-22] MEDS: Divalproex Sodium 500 MG TABLET.DR 1000 MG PO (20:15)
--- NOTE | 2023-02-22 21:09 | PC.NURSE ---
POC 411 reviewed with psychiatrist. no new orders.
[2023-02-22] MEDS: hydrOXYzine HCL 50 MG TABLET PO (23:30)
[2023-02-23 07:30] VITALS: BP 115/70; PULSE 86; RESP 18; TEMP 36.6; O2SAT 95
[2023-02-23 08:18] LABS: Glucose, Whole Blood 354 mg/dL (60-115)
[2023-02-23] MEDS: Fluticasone/Vilanterol 100/25 BLST.W.DEV 1 PUFF INHALE (08:35)
[2023-02-23] MEDS: Divalproex Sodium 500 MG TABLET.DR PO (08:36)
[2023-02-23] MEDS: buPROPion HCl XL 150 MG TAB.ER.24H PO (08:36)
[2023-02-23] MEDS: Atorvastatin Calcium 80 MG TABLET PO (08:36)
[2023-02-23] MEDS: metFORMIN HCl ER 500 MG TAB.ER.24H 1000 MG PO (08:36)
[2023-02-23] MEDS: NaPROXEN 250 MG TABLET PO (08:36)
[2023-02-23] MEDS: Insulin Glargine,Hum.rec.anlog 100 UNIT/ML 10 ML VIAL 160 UNIT SUBCUT (08:37)
[2023-02-23] MEDS: Insulin Lispro 100 UNIT/ML 3 ML VIAL SUBCUT (08:41)
[2023-02-23] MEDS: Insulin Lispro 100 UNIT/ML 3 ML VIAL 20 UNIT SUBCUT (08:42)
--- NOTE | 2023-02-23 09:38 | P.DS_ITS ---
DS: Providers Provider Date of Service: 02/23/23 Date of admission: 02/20/23 13:14 Date of discharge: 02/23/23 Primary care physician: [facility] Admitting clinician: Loretta Jon Attending physician on admission: Freddy Tran Consults: 02/20/23 17:28 Consult to Hospitalist Routine Comment: Consulting Provider: Hospitalist Reason For Exam: Diabetes, blood sugar instabilty Attending physician on discharge: Freddy Tran Discharging clinician: Loretta Jon DS: Diagnosis Discharge Diagnosis (1) Schizoaffective disorder, bipolar type: Status: Acute (2) Suicidal ideation: Status: Resolved (3) Borderline personality disorder in adult: Status: Acute DS: Medications Discharge Medications Home Medications: Home Medications Medication Instructions Recorded Confirmed budesonide-formoterol HFA 80 2 puff PO BID 02/24/22 02/19/23 mcg-4.5 mcg/actuation aerosol inhaler (Symbicort) fenofibrate micronized 43 mg 1 cap PO DAILY 02/24/22 02/19/23 capsule rosuvastatin 20 mg tablet 1 tab PO DAILY 02/24/22 02/19/23 bupropion HCl 150 mg 24 hr tablet, 1 tab PO QAM depressive disorder 08/14/22 02/19/23 extended release divalproex 500 mg tablet,delayed 500 mg PO DAILY 08/14/22 02/19/23 release dulaglutide 0.75 mg/0.5 mL 4.5 mg subcut QWEEK 08/14/22 02/19/23 subcutaneous pen injector (Trulicity) hydroxyzine HCl 25 mg tablet 50 mg PO TID PRN Anxiety 08/14/22 02/19/23 insulin degludec 200 unit/mL (3 160 unit subcut DAILY 08/14/22 02/19/23 mL) subcutaneous pen (Tresiba FlexTouch U-200 insulin) insulin lispro 100 unit/mL 1 sliding scale dose subcut 08/14/22 02/19/23 subcutaneous pen (Humalog Tempo BID-QID PRN Hyperglycemia Pen (U-100) Insulin) lorazepam 1 mg tablet 1 tab PO BID PRN panic attack 08/14/22 02/19/23 paliperidone palmitate 234 mg/1.5 1 syringe IM QMONTH 08/14/22 02/19/23 mL intramuscular syringe (Invega Sustenna) trazodone 150 mg tablet 1 tab PO BEDTIME PRN Insomnia 08/14/22 02/19/23 divalproex 500 mg tablet,delayed 1,000 mg PO BEDTIME 02/19/23 02/19/23 release haloperidol 10 mg tablet 10 mg PO BEDTIME 02/19/23 02/19/23 meloxicam 7.5 mg tablet 7.5 mg PO DAILY 02/19/23 02/19/23 metformin 500 mg tablet,extended 1,000 mg PO BID 02/19/23 02/19/23 release 24 hr prazosin 1 mg capsule 2 mg PO BEDTIME 02/19/23 02/19/23 Mental Status Exam Mental Status Exam Narrative: Pt is alert and oriented; behavior is cooperative, friendly and calm; dressed in casual attire; mood is described as good ; eye contact appropriate; Speech is normal rate, volume and prosody and not pressured; no psychomotor agitation/retardation present; thought process is organized and goal directed; Thought content is on tx; otherwise pertinent to relevant topics and without any delusional content, paranoid ideations or grandiosity; denies SI/HI. There is no evidence of perceptual disturbance. Patients insight and judgment are fair. Data Data Completed and Pending Completed studies during hospitalization [Text1]: 02/19/23 02/19/23 02/19/23 14:30 14:30 14:30 WBC RBC Hgb Hct MCV MCH MCHC RDW Plt Count MPV Immature Gran % (Auto) Neut % (Auto) Lymph % (Auto) [place] % (Auto) Eos % (Auto) Baso % (Auto) Lymph # (Auto) [place] # (Auto) Eos # (Auto) Baso # (Auto) Abs Immat Gran (auto) Absolute Neuts (auto) Absolute Nucleated RBC Nucleated RBC % (auto) Sodium Potassium Chloride Carbon Dioxide Anion Gap BUN Creatinine Estim Creat Clear Calc Estimated GFR POC Glucose Random Glucose Fasting Glucose Estimat Average Glucose Hemoglobin A1c % Calcium Total Bilirubin Direct Bilirubin AST ALT Alkaline Phosphatase Total Protein Albumin Triglycerides Cholesterol LDL Cholesterol, Calc HDL Cholesterol Vitamin B12 Folate TSH Urine Color Yellow Urine Appearance Clear Urine pH 6.5 Ur Specific [place] >= 1.030 H Urine Protein Negative Urine Glucose (UA) >=1000 H Urine Ketones 15 Urine Blood Negative Urine Nitrite Negative Ur Leukocyte Esterase Negative Urine RBC 0-2 Urine WBC 11-20 H Ur Squamous Epith Cells 3-5 Urine Bacteria None Seen Hyaline Casts 0-2 Salicylates Urine Opiates Screen Not Detected Urine Fentanyl Screen SEE COMMENTS Pending Urine Fentanyl Pending Ur Norfentanyl Quant Pending Acetaminophen Ur Barbiturates Screen Not Detected Valproic Acid Ur Phencyclidine Scrn Not Detected Ur Amphetamines Screen Not Detected U Benzodiazepines Scrn Not Detected Urine Cocaine Screen Not Detected U Marijuana (THC) Screen Not Detected Ethyl Alcohol COVID-19 ([facility]) COVID-19 Clin Com Ref Lab Test Result 02/19/23 02/19/23 02/19/23 14:30 15:00 15:00 WBC 9.5 RBC 5.75 Hgb 17.0 Hct 47.9 MCV 83.3 MCH 29.6 MCHC 35.5 RDW 11.7 Plt Count 233 MPV 10.8 Immature Gran % (Auto) 0.4 Neut % (Auto) 59.9 Lymph % (Auto) 29.5 [place] % (Auto) 8.6 Eos % (Auto) 1.2 Baso % (Auto) 0.4 Lymph # (Auto) 2.8 [place] # (Auto) 0.8 Eos # (Auto) 0.1 Baso # (Auto) 0.0 Abs Immat Gran (auto) 0.04 H Absolute Neuts (auto) 5.7 Absolute Nucleated RBC 0.000 Nucleated RBC % (auto) 0.0 Sodium Potassium Chloride Carbon Dioxide Anion Gap BUN Creatinine Estim Creat Clear Calc Estimated GFR POC Glucose Random Glucose Fasting Glucose Estimat Average Glucose Hemoglobin A1c % Calcium Total Bilirubin Direct Bilirubin AST ALT Alkaline Phosphatase Total Protein Albumin Triglycerides Cholesterol LDL Cholesterol, Calc HDL Cholesterol Vitamin B12 Folate TSH Urine Color Urine Appearance Urine pH Ur Specific [place] Urine Protein Urine Glucose (UA) Urine Ketones Urine Blood Urine Nitrite Ur Leukocyte Esterase Urine RBC Urine WBC Ur Squamous Epith Cells Urine Bacteria Hyaline Casts Salicylates < 5.0 L Urine Opiates Screen Urine Fentanyl Screen Urine Fentanyl Ur Norfentanyl Quant Acetaminophen < 17 Ur Barbiturates Screen Valproic Acid Ur Phencyclidine Scrn Ur Amphetamines Screen U Benzodiazepines Scrn Urine Cocaine Screen U Marijuana (THC) Screen Ethyl Alcohol COVID-19 ([facility]) COVID-19 Clin Com Ref Lab Test Result Pending 02/19/23 02/19/23 02/19/23 15:00 15:00 17:57 WBC RBC Hgb Hct MCV MCH MCHC RDW Plt Count MPV Immature Gran % (Auto) Neut % (Auto) Lymph % (Auto) [place] % (Auto) Eos % (Auto) Baso % (Auto) Lymph # (Auto) [place] # (Auto) Eos # (Auto) Baso # (Auto) Abs Immat Gran (auto) Absolute Neuts (auto) Absolute Nucleated RBC Nucleated RBC % (auto) Sodium 137 Potassium 3.8 Chloride 104 Carbon Dioxide 21 L Anion Gap 16 BUN 9 Creatinine 0.85 Estim Creat Clear Calc 192.5 Estimated GFR > 60 POC Glucose 392 H* Random Glucose 475 H* Fasting Glucose Estimat Average Glucose Hemoglobin A1c % Calcium 10.5 H D Total Bilirubin 0.6 Direct Bilirubin 0.2 AST 12 ALT 19 Alkaline Phosphatase 99 Total Protein 7.5 Albumin 4.3 Triglycerides Cholesterol LDL Cholesterol, Calc HDL Cholesterol Vitamin B12 Folate TSH Urine Color Urine Appearance Urine pH Ur Specific [place] Urine Protein Urine Glucose (UA) Urine Ketones Urine Blood Urine Nitrite Ur Leukocyte Esterase Urine RBC Urine WBC Ur Squamous Epith Cells Urine Bacteria Hyaline Casts Salicylates Urine Opiates Screen Urine Fentanyl Screen Urine Fentanyl Ur Norfentanyl Quant Acetaminophen Ur Barbiturates Screen Valproic Acid < 12.5 L Ur Phencyclidine Scrn Ur Amphetamines Screen U Benzodiazepines Scrn Urine Cocaine Screen U Marijuana (THC) Screen Ethyl Alcohol < 10 COVID-19 ([facility]) COVID-19 Clin Com Ref Lab Test Result 02/19/23 02/19/23 02/20/23 20:55 21:23 07:17 WBC RBC Hgb Hct MCV MCH MCHC RDW Plt Count MPV Immature Gran % (Auto) Neut % (Auto) Lymph % (Auto) [place] % (Auto) Eos % (Auto) Baso % (Auto) Lymph # (Auto) [place] # (Auto) Eos # (Auto) Baso # (Auto) Abs Immat Gran (auto) Absolute Neuts (auto) Absolute Nucleated RBC Nucleated RBC % (auto) Sodium Potassium Chloride Carbon Dioxide Anion Gap BUN Creatinine Estim Creat Clear Calc Estimated GFR POC Glucose 310 H 366 H* Random Glucose Fasting Glucose Estimat Average Glucose Hemoglobin A1c % Calcium Total Bilirubin Direct Bilirubin AST ALT Alkaline Phosphatase Total Protein Albumin Triglycerides Cholesterol LDL Cholesterol, Calc HDL Cholesterol Vitamin B12 Folate TSH Urine Color Urine Appearance Urine pH Ur Specific [place] Urine Protein Urine Glucose (UA) Urine Ketones Urine Blood Urine Nitrite Ur Leukocyte Esterase Urine RBC Urine WBC Ur Squamous Epith Cells Urine Bacteria Hyaline Casts Salicylates Urine Opiates Screen Urine Fentanyl Screen Urine Fentanyl Ur Norfentanyl Quant Acetaminophen Ur Barbiturates Screen Valproic Acid Ur Phencyclidine Scrn Ur Amphetamines Screen U Benzodiazepines Scrn Urine Cocaine Screen U Marijuana (THC) Screen Ethyl Alcohol COVID-19 ([facility]) Negative COVID-19 Clin Com See Note Ref Lab Test Result 02/20/23 02/20/23 02/20/23 12:34 17:16 20:36 WBC RBC Hgb Hct MCV MCH MCHC RDW Plt Count MPV Immature Gran % (Auto) Neut % (Auto) Lymph % (Auto) [place] % (Auto) Eos % (Auto) Baso % (Auto) Lymph # (Auto) [place] # (Auto) Eos # (Auto) Baso # (Auto) Abs Immat Gran (auto) Absolute Neuts (auto) Absolute Nucleated RBC Nucleated RBC % (auto) Sodium Potassium Chloride Carbon Dioxide Anion Gap BUN Creatinine Estim Creat Clear Calc Estimated GFR POC Glucose 485 H* 554 H* 431 H* Random Glucose Fasting Glucose Estimat Average Glucose Hemoglobin A1c % Calcium Total Bilirubin Direct Bilirubin AST ALT Alkaline Phosphatase Total Protein Albumin Triglycerides Cholesterol LDL Cholesterol, Calc HDL Cholesterol Vitamin B12 Folate TSH Urine Color Urine Appearance Urine pH Ur Specific [place] Urine Protein Urine Glucose (UA) Urine Ketones Urine Blood Urine Nitrite Ur Leukocyte Esterase Urine RBC Urine WBC Ur Squamous Epith Cells Urine Bacteria Hyaline Casts Salicylates Urine Opiates Screen Urine Fentanyl Screen Urine Fentanyl Ur Norfentanyl Quant Acetaminophen Ur Barbiturates Screen Valproic Acid Ur Phencyclidine Scrn Ur Amphetamines Screen U Benzodiazepines Scrn Urine Cocaine Screen U Marijuana (THC) Screen Ethyl Alcohol COVID-19 ([facility]) COVID-19 Clin Com Ref Lab Test Result 02/21/23 02/21/23 02/21/23 08:29 08:29 08:29 WBC RBC Hgb Hct MCV MCH MCHC RDW Plt Count MPV Immature Gran % (Auto) Neut % (Auto) Lymph % (Auto) [place] % (Auto) Eos % (Auto) Baso % (Auto) Lymph # (Auto) [place] # (Auto) Eos # (Auto) Baso # (Auto) Abs Immat Gran (auto) Absolute Neuts (auto) Absolute Nucleated RBC Nucleated RBC % (auto) Sodium 138 Potassium 4.1 Chloride 105 Carbon Dioxide 22 Anion Gap 15 BUN 12 Creatinine 0.83 Estim Creat Clear Calc 191.7 Estimated GFR > 60 POC Glucose Random Glucose Fasting Glucose 361 H* Estimat Average Glucose 315 Hemoglobin A1c % 12.6 Calcium 9.7 D Total Bilirubin 0.6 Direct Bilirubin AST 10 ALT 16 Alkaline Phosphatase 77 Total Protein 6.8 Albumin 3.9 Triglycerides 328 H Cholesterol 187 LDL Cholesterol, Calc 89 HDL Cholesterol 33 L Vitamin B12 592 Folate 12.1 TSH 2.08 Urine Color Urine Appearance Urine pH Ur Specific [place] Urine Protein Urine Glucose (UA) Urine Ketones Urine Blood Urine Nitrite Ur Leukocyte Esterase Urine RBC Urine WBC Ur Squamous Epith Cells Urine Bacteria Hyaline Casts Salicylates Urine Opiates Screen Urine Fentanyl Screen Urine Fentanyl Ur Norfentanyl Quant Acetaminophen Ur Barbiturates Screen Valproic Acid Ur Phencyclidine Scrn Ur Amphetamines Screen U Benzodiazepines Scrn Urine Cocaine Screen U Marijuana (THC) Screen Ethyl Alcohol COVID-19 ([facility]) COVID-19 Clin Com Ref Lab Test Result 02/21/23 02/21/23 02/21/23 08:40 12:41 16:26 WBC RBC Hgb Hct MCV MCH MCHC RDW Plt Count MPV Immature Gran % (Auto) Neut % (Auto) Lymph % (Auto) [place] % (Auto) Eos % (Auto) Baso % (Auto) Lymph # (Auto) [place] # (Auto) Eos # (Auto) Baso # (Auto) Abs Immat Gran (auto) Absolute Neuts (auto) Absolute Nucleated RBC Nucleated RBC % (auto) Sodium Potassium Chloride Carbon Dioxide Anion Gap BUN Creatinine Estim Creat Clear Calc Estimated GFR POC Glucose 415 H* 436 H* > 600 H* Random Glucose Fasting Glucose Estimat Average Glucose Hemoglobin A1c % Calcium Total Bilirubin Direct Bilirubin AST ALT Alkaline Phosphatase Total Protein Albumin Triglycerides Cholesterol LDL Cholesterol, Calc HDL Cholesterol Vitamin B12 Folate TSH Urine Color Urine Appearance Urine pH Ur Specific [place] Urine Protein Urine Glucose (UA) Urine Ketones Urine Blood Urine Nitrite Ur Leukocyte Esterase Urine RBC Urine WBC Ur Squamous Epith Cells Urine Bacteria Hyaline Casts Salicylates Urine Opiates Screen Urine Fentanyl Screen Urine Fentanyl Ur Norfentanyl Quant Acetaminophen Ur Barbiturates Screen Valproic Acid Ur Phencyclidine Scrn Ur Amphetamines Screen U Benzodiazepines Scrn Urine Cocaine Screen U Marijuana (THC) Screen Ethyl Alcohol COVID-19 ([facility]) COVID-19 Clin Com Ref Lab Test Result 02/21/23 02/21/23 02/21/23 16:30 17:29 18:37 WBC RBC Hgb Hct MCV MCH MCHC RDW Plt Count MPV Immature Gran % (Auto) Neut % (Auto) Lymph % (Auto) [place] % (Auto) Eos % (Auto) Baso % (Auto) Lymph # (Auto) [place] # (Auto) Eos # (Auto) Baso # (Auto) Abs Immat Gran (auto) Absolute Neuts (auto) Absolute Nucleated RBC Nucleated RBC % (auto) Sodium 132 L Potassium 4.5 Chloride 97 Carbon Dioxide 24 Anion Gap 16 BUN 16 Creatinine 1.17 Estim Creat Clear Calc 136.0 Estimated GFR > 60 POC Glucose > 600 H* 538 H* Random Glucose 665 H* Fasting Glucose Estimat Average Glucose Hemoglobin A1c % Calcium 10.1 Total Bilirubin Direct Bilirubin AST ALT Alkaline Phosphatase Total Protein Albumin Triglycerides Cholesterol LDL Cholesterol, Calc HDL Cholesterol Vitamin B12 Folate TSH Urine Color Urine Appearance Urine pH Ur Specific [place] Urine Protein Urine Glucose (UA) Urine Ketones Urine Blood Urine Nitrite Ur Leukocyte Esterase Urine RBC Urine WBC Ur Squamous Epith Cells Urine Bacteria Hyaline Casts Salicylates Urine Opiates Screen Urine Fentanyl Screen Urine Fentanyl Ur Norfentanyl Quant Acetaminophen Ur Barbiturates Screen Valproic Acid Ur Phencyclidine Scrn Ur Amphetamines Screen U Benzodiazepines Scrn Urine Cocaine Screen U Marijuana (THC) Screen Ethyl Alcohol COVID-19 ([facility]) COVID-19 Clin Com Ref Lab Test Result 02/21/23 02/22/23 02/22/23 21:19 07:48 12:42 WBC RBC Hgb Hct MCV MCH MCHC RDW Plt Count MPV Immature Gran % (Auto) Neut % (Auto) Lymph % (Auto) [place] % (Auto) Eos % (Auto) Baso % (Auto) Lymph # (Auto) [place] # (Auto) Eos # (Auto) Baso # (Auto) Abs Immat Gran (auto) Absolute Neuts (auto) Absolute Nucleated RBC Nucleated RBC % (auto) Sodium Potassium Chloride Carbon Dioxide Anion Gap BUN Creatinine Estim Creat Clear Calc Estimated GFR POC Glucose 416 H* 331 H 502 H* Random Glucose Fasting Glucose Estimat Average Glucose Hemoglobin A1c % Calcium Total Bilirubin Direct Bilirubin AST ALT Alkaline Phosphatase Total Protein Albumin Triglycerides Cholesterol LDL Cholesterol, Calc HDL Cholesterol Vitamin B12 Folate TSH Urine Color Urine Appearance Urine pH Ur Specific [place] Urine Protein Urine Glucose (UA) Urine Ketones Urine Blood Urine Nitrite Ur Leukocyte Esterase Urine RBC Urine WBC Ur Squamous Epith Cells Urine Bacteria Hyaline Casts Salicylates Urine Opiates Screen Urine Fentanyl Screen Urine Fentanyl Ur Norfentanyl Quant Acetaminophen Ur Barbiturates Screen Valproic Acid Ur Phencyclidine Scrn Ur Amphetamines Screen U Benzodiazepines Scrn Urine Cocaine Screen U Marijuana (THC) Screen Ethyl Alcohol COVID-19 ([facility]) COVID-19 Clin Com Ref Lab Test Result 02/22/23 02/22/23 02/22/23 13:57 17:12 20:00 WBC RBC Hgb Hct MCV MCH MCHC RDW Plt Count MPV Immature Gran % (Auto) Neut % (Auto) Lymph % (Auto) [place] % (Auto) Eos % (Auto) Baso % (Auto) Lymph # (Auto) [place] # (Auto) Eos # (Auto) Baso # (Auto) Abs Immat Gran (auto) Absolute Neuts (auto) Absolute Nucleated RBC Nucleated RBC % (auto) Sodium Potassium Chloride Carbon Dioxide Anion Gap BUN Creatinine Estim Creat Clear Calc Estimated GFR POC Glucose 442 H* 503 H* 411 H* Random Glucose Fasting Glucose Estimat Average Glucose Hemoglobin A1c % Calcium Total Bilirubin Direct Bilirubin AST ALT Alkaline Phosphatase Total Protein Albumin Triglycerides Cholesterol LDL Cholesterol, Calc HDL Cholesterol Vitamin B12 Folate TSH Urine Color Urine Appearance Urine pH Ur Specific [place] Urine Protein Urine Glucose (UA) Urine Ketones Urine Blood Urine Nitrite Ur Leukocyte Esterase Urine RBC Urine WBC Ur Squamous Epith Cells Urine Bacteria Hyaline Casts Salicylates Urine Opiates Screen Urine Fentanyl Screen Urine Fentanyl Ur Norfentanyl Quant Acetaminophen Ur Barbiturates Screen Valproic Acid Ur Phencyclidine Scrn Ur Amphetamines Screen U Benzodiazepines Scrn Urine Cocaine Screen U Marijuana (THC) Screen Ethyl Alcohol COVID-19 ([facility]) COVID-19 Clin Com Ref Lab Test Result 02/23/23 08:11 WBC RBC Hgb Hct MCV MCH MCHC RDW Plt Count MPV Immature Gran % (Auto) Neut % (Auto) Lymph % (Auto) [place] % (Auto) Eos % (Auto) Baso % (Auto) Lymph # (Auto) [place] # (Auto) Eos # (Auto) Baso # (Auto) Abs Immat Gran (auto) Absolute Neuts (auto) Absolute Nucleated RBC Nucleated RBC % (auto) Sodium Potassium Chloride Carbon Dioxide Anion Gap BUN Creatinine Estim Creat Clear Calc Estimated GFR POC Glucose 354 H* Random Glucose Fasting Glucose Estimat Average Glucose Hemoglobin A1c % Calcium Total Bilirubin Direct Bilirubin AST ALT Alkaline Phosphatase Total Protein Albumin Triglycerides Cholesterol LDL Cholesterol, Calc HDL Cholesterol Vitamin B12 Folate TSH Urine Color Urine Appearance Urine pH Ur Specific [place] Urine Protein Urine Glucose (UA) Urine Ketones Urine Blood Urine Nitrite Ur Leukocyte Esterase Urine RBC Urine WBC Ur Squamous Epith Cells Urine Bacteria Hyaline Casts Salicylates Urine Opiates Screen Urine Fentanyl Screen Urine Fentanyl Ur Norfentanyl Quant Acetaminophen Ur Barbiturates Screen Valproic Acid Ur Phencyclidine Scrn Ur Amphetamines Screen U Benzodiazepines Scrn Urine Cocaine Screen U Marijuana (THC) Screen Ethyl Alcohol COVID-19 ([facility]) COVID-19 Clin Com Ref Lab Test Result 02/19/23 Unknown Urine clean catch - Urine awad top Urine Culture - Final Strep agalactiae (Grp B) Lactobacillus species DS: Summary Hospital Course Hospital Course: Patient is a 22 year old male with hx of Schizoaffectice d/o and Boarderline Personality d/o who was brought in by ambulance after his mother contacted 911 when pt left home and threatened to kill self d/t increased depressive symptoms. Per crisis report patient has been non medication compliant. He endorses SI with plan to jump off a bridge or cut his wrists. When asked if he wanted to hurt anyone else, he responded with I will punch the next person that says something stupid . Per report, pt has significant hx of aggressive behaviors with family; arguments are surrounding food consumption and demanding mother to care for him. During admission assessment, pt presented uncooperative, irritable and brief. He remained in bed and refused to meet in unit office. Patient reports having suicidal ideation with no plan. He stated he has auditory hallucinations which is usual for me . Patient stated, I don't want to talk to you. I just want to fucking sleep. Can you leave now?! . T/W told patient we would meet again tomorrow and left pt room. Pt denies HI/VH at this time. Patient reports feeling good today. Denies any depression or anxiety. Patient reports he plans on speaking with his mother about receiving more services through [facility]. Patient reports if he feels stressed in the future, I'm going to play basketball. I would never kill myself . He is requesting that T/W not change any of his medications. Observed laughing and joking with staff and peers. He plans on following up with his PCP regarding his blood sugar this month. Pt requesting to be discharged; denies SI/HI/VH/AH. Pt has appointment with [facility] on 02/24/2023. Time spent discussing smoking cessation with patient: 3 to 10 minutes Status at Discharge Cognitive/behavioral status at discharge: Patient was interviewed prior to discharge and found to be fully oriented and without any SI or HI. Patient has insight and demonstrates good judgment in terms of wanting to pursue treatment. Patient is not in imminent risk of harm to self or others and has a safety plan that includes presenting to the closest ER or calling 911 if feeling unsafe. Patient has been observed closely by nursing and unit staff throughout admission; patient has not engaged in any behaviors that suggest dangerousness to self or others and has demonstrated appropriate behaviors and impulse control. Functional status at discharge: independent ambulation Overall status at discharge: patient is back to baseline Time Spent with Patient Time attestation: Total time managing care of this patient today _30___ minutes. Time spent: Less than 30 minutes Discharge Plan Discharge Anticipated Discharge Date/Time: 02/23/23 13:00 Patient Disposition: Home, Self-Care Discharge Diagnosis: Schizoaffective d/o, Borderline personality d/o Referrals: [facility] [Provider Group] - 03/02/23 3:00 pm (Therapy) [facility] [Outside] - 02/24/23 10:00 am (Medication Management - Valeria Ambrosio) Leonarda Pierre MD [Physician] - 03/03/23 9:30 am (PCP booked followup appt. with Dr. Leonarda Mooney ) Discharge Medications: Continued fenofibrate micronized 43 mg capsule 1 cap PO DAILY budesonide-formoterol [Symbicort] 80-4.5 mcg/actuation HFA aerosol inhaler 2 puff PO BID rosuvastatin 20 mg tablet 1 tab PO DAILY divalproex 500 mg tablet,delayed release (DR/EC) 500 mg PO DAILY trazodone 150 mg tablet 1 tab PO BEDTIME PRN (Reason: Insomnia) hydroxyzine HCl 25 mg tablet 50 mg PO TID PRN (Reason: Anxiety) insulin lispro [Humalog Tempo Pen(U-100)Insuln] 100 unit/mL insulin pen 1 sliding scale dose subcut BID-QID PRN (Reason: Hyperglycemia) bupropion HCl 150 mg tablet extended release 24 hr 1 tab PO QAM insulin degludec [Tresiba FlexTouch U-200] 200 unit/mL (3 mL) insulin pen 160 unit subcut DAILY Trulicity 0.75 mg/0.5 mL pen injector 4.5 mg subcut QWEEK Invega Sustenna 234 mg/1.5 mL syringe 1 syringe IM QMONTH Rx Instructions: PT reports he received the injection on 02/09/23. No documentation to support this. lorazepam 1 mg tablet 1 tab PO BID PRN (Reason: panic attack) prazosin 1 mg Capsule 2 mg PO BEDTIME divalproex 500 mg tablet,delayed release (DR/EC) 1,000 mg PO BEDTIME meloxicam 7.5 mg Tablet 7.5 mg PO DAILY haloperidol 10 mg Tablet 10 mg PO BEDTIME metformin 500 mg Tablet Extended Release 24 Hr 1,000 mg PO BID Discharge Orders: Discharge Order (Routine); Ordered 02/23/23 Ordered By: Loretta Jon Diet: Diabetic diet Activity on Discharge: As tolerated Stand Alone Forms: Patient Portal Discharge page, Community Support Care Plan Goals: Maintain mood and safe behaviors Take medications as prescribed Practice coping skills Continue with outpatient providers and reach out to them as needed Health Concerns: Mood stability and behaviors Follow up with PCP regarding blood sugars and diabetes. Plan of Treatment: Follow up with your PCP, psychiatric provider and other outpatient providers regarding above concerns Take medications as prescribed Assessment: Patient was interviewed prior to discharge and found to be fully oriented and without any SI or HI. Patient has insight and demonstrates good judgment in terms of wanting to pursue treatment. Patient is not in imminent risk of harm to self or others and has a safety plan that includes presenting to the closest ER or calling 911 if feeling unsafe. Patient has been observed closely by nursing and unit staff throughout admission; patient has not engaged in any behaviors that suggest dangerousness to self or others and has demonstrated appropriate behaviors and impulse control. Discharge Date/Time: 02/23/23 10:49
--- NOTE | 2023-02-23 10:49 | PC.NURSE ---
Williams is discharged home at this time. He denies ideation plan or intent to harms self or others. He denies physical complaint. He declined teaching related to meds, diabetes, nutrition. He verbalized understanding of appointments.
[2023-02-25 08:47] LABS: Fentanyl, Ur NEGATIVE; Norfentanyl, Ur NEGATIVE
== END 2023-02-23 10:49 | disposition home or self-care (01) | DRG 750 ==
LOC: HO.ED 15:11 → HO.PADLT16 02-20 13:18
PROVIDERS: Physician Assistant; Admitting Provider Psychiatry & Neurology Psychiatry; Emergency Provider Emergency Medicine; Responsible Provider Registered Nurse; Visit Provider Psychiatry & Neurology Psychiatry
DX: F25.0 Schizoaffective disorder, bipolar type (principal); R45.851 Suicidal ideations; R45.850 Homicidal ideations; E11.65 Type 2 diabetes mellitus with hyperglycemia; F60.3 Borderline personality disorder; F17.210 Nicotine dependence, cigarettes, uncomplicated; Z20.822 Contact with and (suspected) exposure to COVID-19; Z71.6 Tobacco abuse counseling; Z79.4 Long term (current) use of insulin; Z79.84 Long term (current) use of oral hypoglycemic drugs; Z79.899 Other long term (current) drug therapy
CPT/HCPCS: 36415; 80048; 80053; 80061; 80143; 80164; 80179; 80307; 80354; 81001; 82248; 82607; 82746; 82947; 83036; 84443; 85025; 87086; 87147; 87635; 99285; S9485

== ENCOUNTER → 2023-02-20 13:14 | Outpatient (BNV) | payer OTHER, SELFPAY | PROVIDERS: Admitting Provider Psychiatry & Neurology Psychiatry; Emergency Provider Emergency Medicine; Responsible Provider Registered Nurse; Visit Provider Registered Nurse | DX: F25.0 Schizoaffective disorder, bipolar type (principal); R45.851 Suicidal ideations; F60.3 Borderline personality disorder | CPT/HCPCS: 99231; 99232; 99233 ==

== ENCOUNTER 2023-03-12 00:36 | Emergency (ER) | payer MEDICAID, SELFPAY ==
--- NOTE | ~2023-03-12 | XR_ITS ---
EXAMINATION: XR HAND, RIGHT CLINICAL INFORMATION: Trauma COMPARISON: 03/02/2022 TECHNIQUE: PA, lateral, and oblique views of the right hand. FINDINGS: Negative for acute fracture or dislocation. XR/XR hand RT min 3V IMPRESSION: No acute fracture or dislocation right hand.
[2023-03-12 00:43] VITALS: BP 122/58; PULSE 102; RESP 16; TEMP 36.6; O2SAT 95; BMI 41.5
--- NOTE | 2023-03-12 01:26 | ED.PSYCH ---
HPI - Psych General Chief Complaint: Psychiatric Symptoms Stated Complaint: not well Time Seen by Provider: 03/12/23 00:43 Source: patient Mode of arrival: EMS Limitations: no limitations History of Present Illness HPI Narrative: Patient comes to the emergency room via ambulance from home. EMS explains that earlier today, the patient got into an argument with his mother, the mother called PD for help and support, PD called EMS. Patient denies suicidal or homicidal ideation Related Data Home Medications Medication Instructions Recorded Confirmed budesonide-formoterol HFA 80 2 puff PO BID 02/24/22 03/12/23 mcg-4.5 mcg/actuation aerosol inhaler (Symbicort) fenofibrate micronized 43 mg 1 cap PO DAILY 02/24/22 02/19/23 capsule divalproex 500 mg tablet,delayed 500 mg PO DAILY 08/14/22 03/12/23 release dulaglutide 0.75 mg/0.5 mL 4.5 mg subcut QWEEK 08/14/22 03/12/23 subcutaneous pen injector (Trulicity) hydroxyzine HCl 25 mg tablet 50 mg PO TID PRN Anxiety 08/14/22 02/19/23 insulin lispro 100 unit/mL 1 sliding scale dose subcut 08/14/22 02/19/23 subcutaneous pen (Humalog Tempo BID-QID PRN Hyperglycemia Pen (U-100) Insulin) divalproex 500 mg tablet,delayed 1,000 mg PO BEDTIME 02/19/23 03/12/23 release metformin 500 mg tablet,extended 1,000 mg PO BID 02/19/23 02/19/23 release 24 hr budesonide-formoterol HFA 80 2 puff inhalation BID 03/12/23 03/12/23 mcg-4.5 mcg/actuation aerosol inhaler (Symbicort) bupropion HCl 150 mg 24 hr tablet, 150 mg PO QAM depressive disorder 03/12/23 03/12/23 extended release fenofibrate micronized 43 mg 43 mg PO DAILY 03/12/23 03/12/23 capsule haloperidol 10 mg tablet 10 mg PO BEDTIME 03/12/23 03/12/23 hydroxyzine HCl 50 mg tablet 50 mg PO TID PRN panic attack 03/12/23 03/12/23 insulin degludec 200 unit/mL (3 160 unit subcut DAILY 03/12/23 03/12/23 mL) subcutaneous pen (Tresiba FlexTouch U-200 insulin) insulin lispro 100 unit/mL 10 unit subcut BID 03/12/23 03/12/23 subcutaneous pen lorazepam 1 mg tablet 1 mg PO BID PRN Anxiety 03/12/23 03/12/23 meloxicam 7.5 mg tablet 7.5 mg PO QAM 03/12/23 03/12/23 metformin 500 mg tablet,extended 1,000 mg PO BID 03/12/23 03/12/23 release 24 hr paliperidone palmitate 234 mg/1.5 234 mg IM QMONTH 03/12/23 03/12/23 mL intramuscular syringe (Invega Sustenna) prazosin 1 mg capsule 2 mg PO BEDTIME nightmares 03/12/23 03/12/23 rosuvastatin 20 mg tablet 20 mg PO DAILY 03/12/23 03/12/23 trazodone 150 mg tablet 150 mg PO BEDTIME PRN Insomnia 03/12/23 03/12/23 Allergies Allergy/AdvReac Type Severity Reaction Status Date / Time No Known Allergies Allergy Verified 02/14/23 22:47 [No Known Allergies*] Review of Systems Review of Systems: Constitutional : No Weight loss, No Fever, No Chills, No Night Sweats, No Fatigue, No Malaise ENT/Mouth : No Hearing loss, No Ear Pain, No Nasal Congestion, No Sinus Pain, No Hoarseness, No sore throat, No Rhinorrhea, No Swallowing Difficulty Eyes: No Eye Pain, No Swelling, No Redness, No Foreign Body, No Discharge, No Vision Changes Cardiovascular : No Chest Pain, No SOB, No Dyspnea on Exertion, No Orthopnea, No Edema, No Palpitations Respiratory : No Cough, No Sputum, No Wheezing, No Smoke Exposure, No Dyspnea Gastrointestinal : No Nausea, No Vomiting, No Diarrhea, No Constipation, No abdominal Pain, No Hematochezia, No Melena Genitourinary : no irregular bleeding, No Dysuria, No Urinary Frequency, No Hematuria, No Urinary Incontinence, No Urgency, No Flank Pain, No Urinary Flow Changes, No Hesitancy Musculoskeletal : No joint pain, No Myalgias, No Joint Swelling Skin : No Skin Lesions, No rash Neuro : No Weakness, No Numbness, No Paresthesias, No Loss of Consciousness, No Dizziness, No Headache Psych : No Anxiety/Panic, No Depression, No SI/HI/AH/VH, No Social Issues, Heme/Lymph: No Bruising, No Bleeding,No Lymphadenopathy Endocrine : No Polyuria, No Polydipsia, No Temperature Intolerance [facility] Past Medical History Medical History Hyperglycemia 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 Diabetes type 2, uncontrolled Bipolar disorder with psychotic features PTSD (post-traumatic stress disorder) Concussion Asthma Depression Depression Bipolar disorder Anxiety Diabetes mellitus, type 2 Social History Social History Household Members: Family Household Members Other:: mom and sister Housing: Apartment Do you presently have visiting nurse or other home services: No Alcohol intake: current Alcohol intake frequency: holidays/special occasions only Alcohol type: beer, wine and hard liquor Patient Tobacco Use Status: Current everyday Tobacco user Tobacco use type: Cigarette and Smokeless Tobacco Cigarette Packs Per Day: 3 Cigarettes Per Day: 60.0 Years Smoked: 4 years e-Cigarette/Vaping Use: Currently Using Second Hand Smoke Exposure: Yes Substance Use Type: Caffiene Advance Directives: No Advance Directives Information Provided: Yes service: No Current occupational status: disabled 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 Oriented X3. No acute distress. Eyes: Pupils equal, round and reactive to light. ENT: Pharynx normal. Neck: Normal inspection. Neck supple. No lymph nodes noted. No crepitus CVS: Normal heart rate and rhythm. Pulses normal. Normal S1 and S2 Respiratory: No respiratory distress. Breath sounds normal. No Wheezing. No rales Abdomen: Soft and nontender. No rigidity. No distention. Skin: Skin warm and dry. Normal skin color. Normal skin turgor. Extremities: No lower extremity edema. No Lacerations. No Rash Neuro: Oriented X 3. No motor deficit. No sensory deficit. Moving all extremities. No slurred speech. CN 2 through 12 grossly intact Psych: calm, cooperative, normal affect Medical Decision Making Medical Decision Making MDM Narrative: -all of patient's labs plan -care team consult pending -patient not on a Section 12, not SI or HI -physician observation started at 01:27 Discharge Plan Discharge Clinical Impression: Anger Patient Disposition: Still a Patient Prescriptions: No Action fenofibrate micronized 43 mg capsule 1 cap PO DAILY budesonide-formoterol [Symbicort] 80-4.5 mcg/actuation HFA aerosol inhaler 2 puff PO BID rosuvastatin 20 mg tablet 1 tab PO DAILY divalproex 500 mg tablet,delayed release (DR/EC) 500 mg PO DAILY trazodone 150 mg tablet 1 tab PO BEDTIME PRN (Reason: Insomnia) hydroxyzine HCl 25 mg tablet 50 mg PO TID PRN (Reason: Anxiety) insulin lispro [Humalog Tempo Pen(U-100)Insuln] 100 unit/mL insulin pen 1 sliding scale dose subcut BID-QID PRN (Reason: Hyperglycemia) Trulicity 0.75 mg/0.5 mL pen injector 4.5 mg subcut QWEEK divalproex 500 mg tablet,delayed release (DR/EC) 1,000 mg PO BEDTIME metformin 500 mg Tablet Extended Release 24 Hr 1,000 mg PO BID prazosin 1 mg capsule 2 mg PO BEDTIME bupropion HCl 150 mg tablet extended release 24 hr 150 mg PO QAM Invega Sustenna 234 mg/1.5 mL syringe 234 mg IM QMONTH haloperidol 10 mg tablet 10 mg PO BEDTIME lorazepam 1 mg tablet 1 mg PO BID PRN (Reason: Anxiety) meloxicam 7.5 mg tablet 7.5 mg PO QAM insulin degludec [Tresiba FlexTouch U-200] 200 unit/mL (3 mL) insulin pen 160 unit subcut DAILY
[2023-03-12 01:52] LABS: MANUAL DIFF FLAG NO
[2023-03-12 01:55] LABS: Basophils Percent Auto 0.3 % (0-2); Eosinophils Absolute Auto 0.1 X10*3/uL (0.0-0.4); Eosinophils Percent Auto 1.1 % (0-4); Hematocrit 44.9 % (42.0-52.0); Hemoglobin 16.2 g/dl (14.0-18.0); Imm Gran Abs Auto 0.05 X10*3/uL (0.00-0.03); Imm Gran Pct Auto 0.4 % (0.0-0.4); Lymphocytes Absolute Auto 4.1 X10*3/uL (1.2-4.9); Lymphocytes Percent Auto 35.1 % (20-40); Mean Corpuscular HGB Conc 36.1 g/dl (31.0-36.0); Mean Corpuscular Hemoglobin 30.8 pg (27.0-33.0); Mean Corpuscular Volume 85.4 fL (80.0-98.0); Mean Platelet Volume 11.6 fL (9.4-12.4); Monocytes Percent Auto 8.8 % (2-11); Neutrophils Absolute Auto 6.3 x10*3/uL (2.0-8.3); Neutrophils Percent Auto 54.3 % (45-73); Platelet Count 216 X10*3/uL (160-400); Red Blood Count 5.26 X10*6/uL (4.60-5.80); Red Cell Distribution Width 11.5 % (11.0-16.0); White Blood Count 11.7 X10*3/uL (4.8-10.8)
[2023-03-12 02:08] LABS: Ethanol < 10 mg/dL
[2023-03-12 02:14] LABS: Valproate 39.4 mcg/mL (50.0-100.0)
[2023-03-12 02:28] LABS: Appearance Urine Clear; Color Urine Yellow; Glucose Urine UA >=1000 mg/dL (Negative); Leukocyte Esterase Urine Trace (Negative); Nitrite Urine Negative (Negative); PH 6.5 (5.0-9.0); Specific Gravity - Urine >= 1.030 (1.005-1.025); UMIC TRIGGER UA YES; Urine Blood Trace (Negative); Urine Ketones Trace mg/dL (Negative); Urine Protein Negative (Neg-Trace)
[2023-03-12 02:35] VITALS: BP 122/58; PULSE 102; RESP 20; TEMP 36.7; O2SAT 95
[2023-03-12 02:35] LABS: Alanine Aminotransferase 20 U/L (0-40); Albumin Level 3.8 g/dL (3.5-5.0); Alkaline Phosphatase 109 U/L (39-117); Anion Gap 18 (12-20); Aspartate Amino Transferase 16 U/L (5-37); Bilirubin Total 0.3 mg/dL (0.0-1.0); Blood Urea Nitrogen 15 mg/dL (9-16); Calcium 10.2 mg/dL (8.4-10.2); Carbon Dioxide 19 mmol/L (22-29); Chloride 102 mmol/L (96-108); Creatinine Clr Calc Pharmacy 147.2; Estimated Glomerular Filt Rate > 60; Glucose Random 492 mg/dL (60-115); Potassium 3.8 mmol/L (3.3-5.1); Sodium 135 mmol/L (135-145)
[2023-03-12 02:37] LABS: Amphetamine Screen Urine Not Detected (Not Detect); Barbiturates, Urine Not Detected (Not Detect); Benzodiazepines Screen Urine Not Detected (Not Detect); Cannabinoid Screen Urine Not Detected (Not Detect); Cocaine Screen Urine Not Detected (Not Detect); Fentanyl, urine Not Detected (Not Detect); Opiate Screen Urine Not Detected (Not Detect); Phencyclidine Screen Urine Not Detected (Not Detect)
[2023-03-12 03:16] LABS: Bacteria Urine None Seen (None Seen); Hyaline Casts Urine 0-2 /LPF (0-2); RBC Urine 0-2 /HPF (0-2); Squamous Epithelial Cell Urine 0-2 /HPF (0-2); WBC Urine 21-50 /HPF (0-5)
[2023-03-12] MEDS: Insulin Lispro 100 UNIT/ML 3 ML VIAL 14 UNIT SUBCUT (03:32)
--- NOTE | 2023-03-12 03:37 | PC.NURSE ---
Patient is currently in bed resting, engaged well with care team, disposition GERSON follow up, RG was 492 @ 0130 covered with 14 units of insulin at 0332, med rec completed/approved, behavior non concerning, labs completed/resulted, VSS, will continue to monitor.
[2023-03-12 10:15] LABS: Glucose, Whole Blood 328 mg/dL (60-115)
[2023-03-12] MEDS: Insulin Lispro 100 UNIT/ML 3 ML VIAL SUBCUT ×4 (10:25→21:00)
[2023-03-12] MEDS: Divalproex Sodium 500 MG TABLET.DR PO (10:25)
[2023-03-12] MEDS: buPROPion HCl XL 150 MG TAB.ER.24H PO (10:25)
[2023-03-12] MEDS: metFORMIN HCl ER 500 MG TAB.ER.24H 1000 MG PO ×2 (10:25→20:34)
[2023-03-12] MEDS: Atorvastatin Calcium 80 MG TABLET PO (10:25)
[2023-03-12] MEDS: NaPROXEN 250 MG TABLET PO ×2 (10:25→20:36)
[2023-03-12] MEDS: Insulin Glargine,Hum.rec.anlog 100 UNIT/ML 10 ML VIAL 112 UNIT SUBCUT (10:26)
[2023-03-12 12:27] LABS: Glucose, Whole Blood 281 mg/dL (60-115)
[2023-03-12] MEDS: Acetaminophen 325 MG TABLET 650 MG PO (14:19)
[2023-03-12] MEDS: Nicotine Polacrilex 2 MG GUM BUCCAL (14:19)
--- NOTE | 2023-03-12 14:31 | MHC.CARE ---
VM left for Pts mother for collateral contact.
--- NOTE | 2023-03-12 15:52 | PC.NURSE ---
Calm and cooperative, out of room to common area watching t.v. Denies pain or discomfort, po meds and insulin as ordered.
[2023-03-12 18:02] LABS: Glucose, Whole Blood 401 mg/dL (60-115)
--- NOTE | 2023-03-12 18:17 | PC.NURSE ---
Provider notified of BS of 401, order given to give 10 units of insulin
[2023-03-12] MEDS: HaloperidoL 5 MG TABLET 10 MG PO (20:34)
[2023-03-12] MEDS: LORazepam 1 MG TABLET PO (20:34)
[2023-03-12] MEDS: Divalproex Sodium 500 MG TABLET.DR 1000 MG PO (20:34)
[2023-03-12] MEDS: Prazosin HCL 1 MG CAPSULE 2 MG PO (20:34)
[2023-03-12 20:54] LABS: Glucose, Whole Blood 336 mg/dL (60-115)
[2023-03-12 21:02] VITALS: BP 120/70; PULSE 76; RESP 20; TEMP 36.1; O2SAT 96
--- NOTE | 2023-03-12 21:08 | MHC.CARE ---
Mother called to ask hospital staff to stop allowing pt use of phone. CARE team explained that we could not do that. Mother became upset, declined to discuss pt further.
[2023-03-13 06:20] VITALS: BP 111/60; PULSE 88; RESP 17; TEMP 36.8; O2SAT 98
--- NOTE | 2023-03-13 06:48 | PC.NURSE ---
Patient slept through the night, no distress observed/reported, VSS, medication compliant, disposition per care team is GERSON follow up, labs completed/resulted, POC 336 @ 2047 covered as ordered, behavior non concerning, will continue to monitor.
[2023-03-13 08:29] LABS: Glucose, Whole Blood 314 mg/dL (60-115)
[2023-03-13] MEDS: Insulin Glargine,Hum.rec.anlog 100 UNIT/ML 10 ML VIAL 112 UNIT SUBCUT (08:37)
[2023-03-13] MEDS: Divalproex Sodium 500 MG TABLET.DR PO (08:38)
[2023-03-13] MEDS: NaPROXEN 250 MG TABLET PO ×2 (08:38→19:39)
[2023-03-13] MEDS: metFORMIN HCl ER 500 MG TAB.ER.24H 1000 MG PO ×2 (08:38→19:42)
[2023-03-13] MEDS: Atorvastatin Calcium 80 MG TABLET PO (08:38)
[2023-03-13] MEDS: buPROPion HCl XL 150 MG TAB.ER.24H PO (08:38)
[2023-03-13 13:28] LABS: Glucose, Whole Blood 261 mg/dL (60-115)
[2023-03-13] MEDS: LORazepam 1 MG TABLET PO ×2 (14:56→19:41)
--- NOTE | 2023-03-13 15:28 | MHC.CARE ---
Pt seen by CARE team and referred to case management, CARE team to work with CM on discharge planning as needed.
--- NOTE | 2023-03-13 15:36 | PC.NURSE ---
Patient became agitated after speaking with mother and her refusing to let him come back home. Started yelling at staff but was redirectable. Was given prn ativan for anxiety per prn order. At this time resting comfortably in bed. Will continue to monitor.
[2023-03-13 18:39] LABS: Glucose, Whole Blood 282 mg/dL (60-115)
[2023-03-13] MEDS: HaloperidoL 5 MG TABLET 10 MG PO (19:39)
[2023-03-13] MEDS: Divalproex Sodium 500 MG TABLET.DR 1000 MG PO (19:40)
[2023-03-13] MEDS: Prazosin HCL 1 MG CAPSULE 2 MG PO (19:41)
[2023-03-13 20:04] VITALS: BP 121/63; PULSE 78; RESP 20; TEMP 36.1; O2SAT 96
[2023-03-13 21:04] LABS: Glucose, Whole Blood 296 mg/dL (60-115)
[2023-03-13] MEDS: Insulin Lispro 100 UNIT/ML 3 ML VIAL SUBCUT (21:28)
[2023-03-14] MEDS: hydrOXYzine HCL 50 MG TABLET PO (00:22)
[2023-03-14 00:26] VITALS: BP 129/63; PULSE 83; RESP 16; TEMP 36.6; O2SAT 97
--- NOTE | 2023-03-14 05:59 | PC.NURSE ---
Patient slept through the night, no distress observed/reported, medication compliant, POC at 2100 was 296 covered with 5 units, Humulog sliding scale re-instated, care team referred patient to case management to ordinate discharge back to home as doesn't meet inpatient level of care, VSS, behavior non concerning, will continue to monitor.
[2023-03-14 07:35] VITALS: RESP 18
[2023-03-14 07:37] LABS: Glucose, Whole Blood 318 mg/dL (60-115)
--- NOTE | 2023-03-14 07:40 | MHC.EDTECH ---
pt refused vitals at this time. respirations even and unlabored and were documented. RN aware
[2023-03-14] MEDS: Insulin Lispro 100 UNIT/ML 3 ML VIAL SUBCUT ×4 (07:42→21:38)
[2023-03-14] MEDS: Insulin Glargine,Hum.rec.anlog 100 UNIT/ML 10 ML VIAL 112 UNIT SUBCUT (07:51)
[2023-03-14] MEDS: NaPROXEN 250 MG TABLET PO (07:52)
[2023-03-14] MEDS: metFORMIN HCl ER 500 MG TAB.ER.24H 1000 MG PO ×2 (07:52→20:55)
[2023-03-14] MEDS: Atorvastatin Calcium 80 MG TABLET PO (07:52)
[2023-03-14] MEDS: buPROPion HCl XL 150 MG TAB.ER.24H PO (07:53)
[2023-03-14] MEDS: Divalproex Sodium 500 MG TABLET.DR PO (07:53)
--- NOTE | 2023-03-14 08:07 | PC.NURSE ---
Williams allowed his POC to be checked this AM and was 318. He allowed his insulin to be given but while waiting for it was yelling give me my fu@[facility] . Williams was able to be redirected but stated don't make me wait to eat . He was adherent with his other AM medications. Williams ate 100% of his breakfast. Staff will continue to monitor for safety and comfort.
--- NOTE | 2023-03-14 09:48 | MHC.CM.PN ---
Received copy of Perm guardianship for patient. Call placed to [facility], awaiting return call.
[2023-03-14 13:10] LABS: Glucose, Whole Blood 242 mg/dL (60-115)
--- NOTE | 2023-03-14 14:31 | PHA.MEDREC ---
Pharmacy Consult ? Medication Reconciliation Pharmacy has reviewed the medication reconciliation completed by Ulises.
--- NOTE | 2023-03-14 15:00 | MHC.CM.ED ---
Received case management consult overnight. Patient came tot he ER under Section 12. Cleared by Care Team for inpatient level of care. Patient's mother, Ora, is patient's guardian. Ora is not willing to take patient home. T/W spoke with Ora via telephone at [phone]. Ora verifies patient was discharged home from inpatient psych on 02/23/23. Patient returned to Ora's home after that. Per Ora, patient's anger surrounds food. Patient will eat non-stop and gets back if there isn't anything to eat or is told no about food. Patient has eaten 1 weeks worth of food in a day. When patient came to the ER on 03/12 after an altercation with his mother and sister. Patient stated in front of police that he hopes his mother has a heart attack and dies. Ora states she has cardiac issues. Patient also stated it's going to get worse for you when I come back home. Typically patient will make threats to his mother and then apologize for his actions. Ora feels patient is not remorseful and that is it not safe for the patient to return home with his mother and sister because these situations keep escalating. Patient has requested to stay with his grandmother. Ora stated that her brother is currently living with his grandmother (her mother). He is a registered sex offender and has violent outbursts. Ora is genuinely worried about patient's safety if he was to stay with his grandmother. Patient is not active with [facility]. Ora tried to get him involved with [facility] last week, however she was told patient's application would not be reviewed before Thursday 03/15. Patient's Adam's Order is expiring soon. Ora is supposed to return to court on 03/18. At this time, Ora is planning on stepping down as patient's guardian. Patient does not understand that someone else will be his guardian. He thinks he will no longer have a guardian. Per Ora, patient would be agreeable to a snf. Ora is aware that CM Director, Destiney Rendon, is helping T/W in finding a safe discharge plan and that Destiney Rendon may reach out to Ora. Continue to monitor for d/c needs.
[2023-03-14 16:37] VITALS: BP 130/81; PULSE 108; RESP 18; O2SAT 98
[2023-03-14 17:50] LABS: Glucose, Whole Blood 370 mg/dL (60-115)
--- NOTE | 2023-03-14 18:20 | PC.NURSE ---
Before dinner POC 371. 10U lispro given. Williams was observed drinking juice and asking for multiple snacks between lunch and dinner. Diabetes education given but client stated I know all this but I don't want to be told what to eat . 100% of dinner eaten.
[2023-03-14 20:39] LABS: Glucose, Whole Blood 453 mg/dL (60-115)
[2023-03-14] MEDS: HaloperidoL 5 MG TABLET 10 MG PO (20:55)
[2023-03-14] MEDS: Divalproex Sodium 500 MG TABLET.DR 1000 MG PO (20:55)
[2023-03-14] MEDS: Prazosin HCL 1 MG CAPSULE 2 MG PO (20:56)
--- NOTE | 2023-03-14 21:02 | PC.NURSE ---
PT alert and oriented. SAUL Bueno MD made aware, no new orders at this time. 10 units of lispro administered as per SEP. Pt resting in room quietly. No complaints or concerns at this time. Plan of care ongoing.
--- NOTE | 2023-03-14 22:38 | PC.NURSE ---
Patient requested crackers and peanut butter. Educated PT on diabetic diet and his current POC. PT stated he understood risks and education but still wanted the request. This RN provided pt the 4 packs of crackers and one peanut butter pack.
[2023-03-15] MEDS: LORazepam 1 MG TABLET PO ×2 (01:01→20:15)
--- NOTE | 2023-03-15 01:03 | PC.NURSE ---
PT requested diabetic pudding and diabetic gingerale. States he is unable to sleep due to anxiety regarding [facility] worker coming to see him tomorrow. Requested PRN ativan. This Rn administered as per SEP.
[2023-03-15 06:34] VITALS: BP 114/56; PULSE 63; RESP 18; TEMP 36.8; O2SAT 18
[2023-03-15 06:37] LABS: Glucose, Whole Blood 273 mg/dL (60-115)
[2023-03-15] MEDS: Insulin Glargine,Hum.rec.anlog 100 UNIT/ML 10 ML VIAL 112 UNIT SUBCUT (08:31)
[2023-03-15] MEDS: Insulin Lispro 100 UNIT/ML 3 ML VIAL SUBCUT ×4 (08:32→20:35)
[2023-03-15] MEDS: Divalproex Sodium 500 MG TABLET.DR PO (09:57)
[2023-03-15] MEDS: NaPROXEN 250 MG TABLET PO ×2 (09:57→20:15)
[2023-03-15] MEDS: metFORMIN HCl ER 500 MG TAB.ER.24H 1000 MG PO ×2 (09:57→20:15)
[2023-03-15] MEDS: Atorvastatin Calcium 80 MG TABLET PO (09:57)
[2023-03-15] MEDS: buPROPion HCl XL 150 MG TAB.ER.24H PO (09:57)
[2023-03-15 13:17] LABS: Glucose, Whole Blood 270 mg/dL (60-115)
[2023-03-15 14:16] VITALS: RESP 18
--- NOTE | 2023-03-15 15:56 | PC.NURSE ---
Williams spent much of today in bed in his room. He is requesting multiple snacks but has been receptive to reminders about his diabetic diet. BS before breakfast was 273 6 units Lispro given. BS before lunch was 270 and another 6 units were given. Williams was adherent with his other scheduled medications. Williams denies SI/HI/AVH and is advocating to be allowed to discharge to a respite or back to his moms. Case Management is involved and have been working on placement.
[2023-03-15 17:58] LABS: Glucose, Whole Blood 283 mg/dL (60-115)
[2023-03-15 20:13] VITALS: BP 129/72; PULSE 75; RESP 18; TEMP 37.1; O2SAT 96
[2023-03-15] MEDS: Prazosin HCL 1 MG CAPSULE 2 MG PO (20:16)
[2023-03-15] MEDS: HaloperidoL 5 MG TABLET 10 MG PO (20:16)
[2023-03-15] MEDS: Divalproex Sodium 500 MG TABLET.DR 1000 MG PO (20:16)
[2023-03-15 20:29] LABS: Glucose, Whole Blood 322 mg/dL (60-115)
[2023-03-15] MEDS: hydrOXYzine HCL 50 MG TABLET PO (22:18)
--- NOTE | 2023-03-16 06:20 | PC.NURSE ---
Patient slept through the night, no distress observed/reported, behavior non concerning, medication compliant, POC @ 2022 was 322 covered with 8 units of lispro, medication compliant, labs completed/resulted, observed n 15 minutes safety check, disposition is case management pending placement, VSS, will continue to monitor.
[2023-03-16 06:38] VITALS: BP 137/69; PULSE 70; RESP 19; TEMP 36.4; O2SAT 97
[2023-03-16 07:52] LABS: Glucose, Whole Blood 204 mg/dL (60-115)
[2023-03-16] MEDS: metFORMIN HCl ER 500 MG TAB.ER.24H 1000 MG PO ×2 (07:57→20:05)
[2023-03-16] MEDS: NaPROXEN 250 MG TABLET PO ×2 (07:58→20:05)
[2023-03-16] MEDS: Divalproex Sodium 500 MG TABLET.DR PO (07:58)
[2023-03-16] MEDS: buPROPion HCl XL 150 MG TAB.ER.24H PO (07:58)
[2023-03-16] MEDS: Atorvastatin Calcium 80 MG TABLET PO (07:58)
[2023-03-16] MEDS: Insulin Lispro 100 UNIT/ML 3 ML VIAL SUBCUT ×4 (07:59→20:47)
[2023-03-16] MEDS: Insulin Glargine,Hum.rec.anlog 100 UNIT/ML 10 ML VIAL 112 UNIT SUBCUT (07:59)
[2023-03-16 12:44] LABS: Glucose, Whole Blood 172 mg/dL (60-115)
--- NOTE | 2023-03-16 14:05 | MHC.CM.PN ---
Addendum entered by Destiney Rendon 03/16/23 14:43: Received call back from Chinmay @ [facility]- Pt's application was approved yesterday to re-activate services @ this time pt does nt have a Float Operator assigned. Chinmay stated he would work with the team @ [facility] to get a worker assigned and discuss getting patient a respite bed. He reported this may take a couple days but he would work on it. Original Note: This typewriter assembly and parts inspector placed call to pt's mother/guardian re: [facility] application and continuation of serving in guardianship capacity. Mother reports speaking with Chinmay @ [facility] re: pt's application. This typewriter assembly and parts inspector reached out to Chinmay- he will be calling back once reviewing case. Shannen also continued to voice her concern w/ continuing as pt's guardian. She reports patient has difficulty discerning her role as his guardian versus her role as a mother in his life- making their relationship strained. Today (03/16) she planned to go to [place] to talk w/ them about being removed. This typewriter assembly and parts inspector also asked if she could obtain copy of Adam's order if it was expanded past 03/18. Case Management will continue to follow pt for a safe discharge disposition.
[2023-03-16] MEDS: Nicotine Polacrilex 2 MG GUM BUCCAL (15:32)
[2023-03-16] MEDS: LORazepam 1 MG TABLET PO (15:32)
[2023-03-16 15:35] VITALS: BP 134/81; PULSE 90; RESP 20; TEMP 36.1; O2SAT 96
--- NOTE | 2023-03-16 18:11 | PC.NURSE ---
Williams has been in his room and visible in the milieu this shift. He is verbalizing some frustration that he is stuck here and is wondering what the updates are from case management. Williams made several phone calls to his mother asking her to come get him and allow him to come home. When he was told her would not be allowed home he began to yell at his mother and curse at her on the phone, he was redirected and was adherent with that. Williams has attempted to contact [facility] to advocate for himself but has not received a call back. He has not been asking for as many snacks today and has been trying to eat less sugar and crackers.
[2023-03-16 18:20] LABS: Glucose, Whole Blood 288 mg/dL (60-115)
[2023-03-16] MEDS: Prazosin HCL 1 MG CAPSULE 2 MG PO (20:05)
[2023-03-16] MEDS: HaloperidoL 5 MG TABLET 10 MG PO (20:05)
[2023-03-16] MEDS: Divalproex Sodium 500 MG TABLET.DR 1000 MG PO (20:05)
[2023-03-16 20:07] VITALS: BP 125/59; PULSE 90; RESP 18; TEMP 36.6; O2SAT 98
[2023-03-16 20:25] LABS: Glucose, Whole Blood 408 mg/dL (60-115)
--- NOTE | 2023-03-16 20:50 | PC.NURSE ---
POC @ 2018 was 408 covered with 10 units of lispro, snacks limited, compliant with HS medication, behavior non concerning, showered, mood pleasant, disposition case management pending placement, will continue to monitor.
[2023-03-16] MEDS: hydrOXYzine HCL 50 MG TABLET PO (22:18)
[2023-03-16 23:16] VITALS: BP 126/63; PULSE 87; RESP 16; TEMP 36.1; O2SAT 94
[2023-03-17 07:08] LABS: Glucose, Whole Blood 222 mg/dL (60-115)
[2023-03-17] MEDS: Divalproex Sodium 500 MG TABLET.DR PO (07:31)
[2023-03-17] MEDS: Atorvastatin Calcium 80 MG TABLET PO (07:31)
[2023-03-17] MEDS: metFORMIN HCl ER 500 MG TAB.ER.24H 1000 MG PO ×2 (07:31→20:01)
[2023-03-17] MEDS: NaPROXEN 250 MG TABLET PO ×2 (07:32→20:01)
[2023-03-17] MEDS: Insulin Lispro 100 UNIT/ML 3 ML VIAL SUBCUT ×4 (07:32→21:24)
[2023-03-17] MEDS: buPROPion HCl XL 150 MG TAB.ER.24H PO (07:32)
[2023-03-17] MEDS: Insulin Glargine,Hum.rec.anlog 100 UNIT/ML 10 ML VIAL 112 UNIT SUBCUT (07:32)
--- NOTE | 2023-03-17 08:40 | PC.NURSE ---
Calm and cooperative, po meds as ordered, oob ambulating on unit. Talking on phone with family member. Frequent requests for food, bu but able to be easily re directed.
--- NOTE | 2023-03-17 09:49 | PC.NURSE ---
sitting in common area playing cards with tech, calm and cooperative, behavior appropriate
--- NOTE | 2023-03-17 11:28 | PC.NURSE ---
Calm and cooperative, ambulating on unit, talking with staff. Denies pain or discomfort, no s/s of hypo/hyperglycemia.
[2023-03-17 12:50] LABS: Glucose, Whole Blood 227 mg/dL (60-115)
--- NOTE | 2023-03-17 15:12 | PC.NURSE ---
patient taking shower at this time, calm and cooperative.
--- NOTE | 2023-03-17 15:55 | PC.NURSE ---
Patient frequently approaching nursing desk asking when he will be discharged to respite. Explained that [facility] is still looking for a respite and there is no other safe discharge at this time. Patient stating he would like to go home and asked for phone to call his mother, mother stating she cant take him home. Patient upset, but easily re-directable. Resting in room at this time , breathing unlabored and easy.
[2023-03-17 16:30] VITALS: BP 118/23; PULSE 75; RESP 18; TEMP 36.7; O2SAT 98
[2023-03-17 18:02] LABS: Glucose, Whole Blood 251 mg/dL (60-115)
[2023-03-17 19:50] VITALS: BP 149/74; PULSE 97; RESP 20; TEMP 36.1; O2SAT 95
[2023-03-17] MEDS: Prazosin HCL 1 MG CAPSULE 2 MG PO (20:01)
[2023-03-17] MEDS: HaloperidoL 5 MG TABLET 10 MG PO (20:01)
[2023-03-17] MEDS: Divalproex Sodium 500 MG TABLET.DR 1000 MG PO (20:02)
[2023-03-17 21:06] LABS: Glucose, Whole Blood 352 mg/dL (60-115)
[2023-03-18 02:41] VITALS: BP 131/61; PULSE 83; RESP 18; TEMP 36.7; O2SAT 96
--- NOTE | 2023-03-18 05:13 | PC.NURSE ---
Patient slept through the night, no distress observed/reported, behavior non concerning, medication compliant, POC @ 2057 was 352 covered with 10 units of lispro, medication compliant, labs completed/resulted, observed on 15 minutes safety check, disposition is case management pending placement, VSS, will continue to monitor.
[2023-03-18 06:31] VITALS: BP 139/86; PULSE 87; RESP 18; TEMP 36.4; O2SAT 98
[2023-03-18 06:54] LABS: Glucose, Whole Blood 241 mg/dL (60-115)
[2023-03-18] MEDS: Insulin Lispro 100 UNIT/ML 3 ML VIAL SUBCUT ×4 (07:20→20:24)
[2023-03-18] MEDS: Atorvastatin Calcium 80 MG TABLET PO (07:21)
[2023-03-18] MEDS: NaPROXEN 250 MG TABLET PO ×2 (07:21→20:05)
[2023-03-18] MEDS: Divalproex Sodium 500 MG TABLET.DR PO (07:21)
[2023-03-18] MEDS: metFORMIN HCl ER 500 MG TAB.ER.24H 1000 MG PO ×2 (07:21→20:06)
[2023-03-18] MEDS: buPROPion HCl XL 150 MG TAB.ER.24H PO (07:21)
--- NOTE | 2023-03-18 07:55 | PC.NURSE ---
ate breakfast and medicated as ordered, nad,
[2023-03-18] MEDS: Insulin Glargine,Hum.rec.anlog 100 UNIT/ML 10 ML VIAL 112 UNIT SUBCUT (09:06)
--- NOTE | 2023-03-18 10:05 | PC.NURSE ---
pt states that he punched a wall a week ago and has wrist pain, xrauy ordered
[2023-03-18 12:30] LABS: Glucose, Whole Blood 297 mg/dL (60-115)
--- NOTE | 2023-03-18 13:20 | MHC.CM.PN ---
This specifications writer received message from Chinmay @ [facility], reports having [facility] respite bed for patient Thursday 03/22. He recommends trying to locate a step-down respite bed in the interim for patient. Return call placed to Chinmay-awaiting return phone call. Spoke w/ Nidia on CARE Team her team will assist w/ locating interim respite bed for patient ([facility]) and will carry search through over the w/e. Nidia sending med list to Chinmay per his request and Chinmay reports he will be calling to talk w/ patient to communicate the plan. Case Management & CARE Team will continue to work on patient disposition.
--- NOTE | 2023-03-18 14:30 | PC.NURSE ---
pt has been calm and cooperative all day, pleasant and polite, frustrated with being here till tuesday but glad that he has a bed at respite
--- NOTE | 2023-03-18 15:51 | MHC.CARE ---
Per Chinmay Bernard at [facility], pt has been placed at [facility] in a [facility] bed. Ro has requested that pt go to an [facility] bed while awaiting placement this Tuesday. CARE Team has reached out to A-CCS programs at [facility] and [facility], no current availability, but CARE/Admissions team will continue to look for placement at [facility] throughout the weekend.
[2023-03-18 17:24] LABS: Glucose, Whole Blood 349 mg/dL (60-115)
[2023-03-18] MEDS: Nicotine Polacrilex 2 MG GUM BUCCAL (17:50)
[2023-03-18] MEDS: hydrOXYzine HCL 50 MG TABLET PO (18:11)
[2023-03-18 18:17] VITALS: BP 130/62; PULSE 78; RESP 20; TEMP 36.1; O2SAT 96
--- NOTE | 2023-03-18 18:45 | PC.NURSE ---
patient has been calm and cooperative, wandering around BH pod with no complaints. medicated with 8 units of insulin per SEP protocol. Patient resting comfortably at this time after eating dinner
[2023-03-18 20:04] VITALS: BP 139/87; PULSE 94; RESP 17; TEMP 36.3; O2SAT 97
[2023-03-18] MEDS: Prazosin HCL 1 MG CAPSULE 2 MG PO (20:05)
[2023-03-18] MEDS: Divalproex Sodium 500 MG TABLET.DR 1000 MG PO (20:05)
[2023-03-18] MEDS: HaloperidoL 5 MG TABLET 10 MG PO (20:05)
[2023-03-18 20:18] LABS: Glucose, Whole Blood 331 mg/dL (60-115)
[2023-03-19 04:59] VITALS: BP 135/76; PULSE 85; RESP 17; O2SAT 97
--- NOTE | 2023-03-19 06:51 | PC.NURSE ---
Patient slept through the night, no distress observed/reported, behavior non concerning, medication compliant, POC @ 8 was 331 covered with 8 units of lispro, medication compliant, labs completed/resulted, observed on 15 minutes safety check, disposition is case management pending placement possible [facility] respite on 03/22, VSS, will continue to monitor.
[2023-03-19 07:30] LABS: Glucose, Whole Blood 277 mg/dL (60-115)
[2023-03-19] MEDS: Insulin Glargine,Hum.rec.anlog 100 UNIT/ML 10 ML VIAL 112 UNIT SUBCUT (07:59)
[2023-03-19] MEDS: metFORMIN HCl ER 500 MG TAB.ER.24H 1000 MG PO (07:59)
[2023-03-19] MEDS: NaPROXEN 250 MG TABLET PO (08:00)
[2023-03-19] MEDS: Atorvastatin Calcium 80 MG TABLET PO (08:00)
[2023-03-19] MEDS: buPROPion HCl XL 150 MG TAB.ER.24H PO (08:00)
[2023-03-19] MEDS: Divalproex Sodium 500 MG TABLET.DR PO (08:00)
[2023-03-19 08:07] VITALS: BP 119/62; PULSE 75; RESP 16; TEMP 36.6; O2SAT 95
[2023-03-19] MEDS: Insulin Lispro 100 UNIT/ML 3 ML VIAL SUBCUT ×3 (08:10→16:57)
--- NOTE | 2023-03-19 12:13 | MHC.CARE ---
Application for Adult CCS completed and faxed to [facility] at 1050, 1200 is still in review.
[2023-03-19 12:57] LABS: Glucose, Whole Blood 207 mg/dL (60-115)
[2023-03-19 14:23] LABS: Creatinine Clr Calc Pharmacy 163.9; Estimated Glomerular Filt Rate > 60
[2023-03-19] MEDS: Nicotine Polacrilex 2 MG GUM BUCCAL (14:36)
--- NOTE | 2023-03-19 14:58 | MHC.CARE ---
Mental status evaluation sent to [facility] at 1427 on 03/19/23 as requested by [facility] who are currently considering an Adult CCS (community crisis stabilization) admission for patient.
--- NOTE | 2023-03-19 15:28 | PC.NURSE ---
patient call his mother to see if she could bring medications, so we could have on hand if patient was accepted to respite, as respite does not provide medications. mother became agitated with patient so he handed me the phone were she continued to be agitated. she stated that patient told her to bring them now. explained that if someone could bring them at some point because patient may get a bed to night however we are not certain. mother continued be aggressive and I stated I will not be talked to in that manner. defered the call to care team. pt is leaving today around 5pm
[2023-03-19 16:16] VITALS: BP 139/85; PULSE 89; RESP 16; TEMP 36.8; O2SAT 97
--- NOTE | 2023-03-19 16:33 | PC.NURSE ---
pt is A/O x 4. Has respite bed, per care team will go over there for 5p today. Pt understands plan and is participatory. Calm and directable.
[2023-03-19 16:45] LABS: Glucose, Whole Blood 317 mg/dL (60-115)
== END 2023-03-19 17:13 | disposition home or self-care (01) ==
PROVIDERS: Internal Medicine; Emergency Provider Emergency Medicine; PCP Internal Medicine
DX: R45.4 Irritability and anger (principal); F31.81 Bipolar II disorder; F41.9 Anxiety disorder, unspecified; F43.10 Post-traumatic stress disorder, unspecified; M25.531 Pain in right wrist; E11.9 Type 2 diabetes mellitus without complications; F17.210 Nicotine dependence, cigarettes, uncomplicated; Z79.899 Other long term (current) drug therapy; Z79.4 Long term (current) use of insulin
CPT/HCPCS: 36415; 73130; 80053; 80164; 80307; 81001; 82565; 82947; 85025; 99285; S9485

== ENCOUNTER 2023-04-03 16:31 | Emergency (ER) | payer MEDICAID, SELFPAY ==
--- NOTE | ~2023-04-03 | XR_ITS ---
EXAMINATION: XR KNEE, RIGHT CLINICAL INFORMATION: Fall, pain COMPARISON: None available. TECHNIQUE: Four views of the right knee. FINDINGS: No visible acute fracture or dislocation. Alignment Is anatomic. Joint spaces are maintained. No abnormal soft tissue calcification. No significant effusion seen. XR/XR knee RT 4V IMPRESSION: No radiographic evidence of acute fracture or malalignment.
--- NOTE | ~2023-04-03 | XR_ITS ---
EXAMINATION: XR HIP, RIGHT CLINICAL INFORMATION: Fall, pain COMPARISON: None available. TECHNIQUE: Two views of the right hip. Pelvis 2 views FINDINGS: Right hip: Alignment is anatomic. Hip joint space is maintained. No visible acute fracture or dislocation. No abnormal soft tissue calcification. Pelvis: Alignment is anatomic. Left hip joint space is maintained. No acute left hip fracture or dislocation. SI joints and symphysis pubis are intact. No acute pubic rami or pelvic fractures identified. There is gas and stool projected over the pelvis, limiting evaluation. Phlebolith in the pelvis. No dilated bowel loops seen. XR/XR hip RT w PEL1V IMPRESSION: No radiographic evidence of acute fracture or dislocation. If there is persistent symptoms, clinical concern for a radiographically occult fracture, with evaluation with CT scan can be obtained.
--- NOTE | 2023-04-03 16:38 | ED_ITS ---
HPI - Fall General Chief Complaint: Fall Stated Complaint: Fall, R leg pain from hip to knee Time Seen by Provider: 04/03/23 16:37 Source: patient and EMS Mode of arrival: EMS Limitations: no limitations History of Present Illness HPI Narrative: 22-year-old male with history of asthma, diabetes, borderline personality disorder, schizoaffective disorder presents to the ER with complaints of right knee pain which radiates to the right hip. Patient reports he was walking and was not looking or he was going causing himself to trip landing directly onto the right knee. Patient reports he was able to get up and stand but that there is pain with walking. He feels pain which is in his right knee and in his right hip. There is no head strike or loss of consciousness. Related Data Home Medications Medication Instructions Recorded Confirmed divalproex 500 mg tablet,delayed 500 mg PO DAILY 08/14/22 03/12/23 release dulaglutide 0.75 mg/0.5 mL 4.5 mg subcut QWEEK 08/14/22 03/12/23 subcutaneous pen injector (Trulicity) insulin lispro 100 unit/mL 1 sliding scale dose subcut 08/14/22 03/12/23 subcutaneous pen (Humalog Tempo BID-QID PRN Hyperglycemia Pen (U-100) Insulin) divalproex 500 mg tablet,delayed 1,000 mg PO BEDTIME 02/19/23 03/12/23 release budesonide-formoterol HFA 80 2 puff inhalation BID 03/12/23 03/12/23 mcg-4.5 mcg/actuation aerosol inhaler (Symbicort) bupropion HCl 150 mg 24 hr tablet, 150 mg PO QAM depressive disorder 03/12/23 03/12/23 extended release fenofibrate micronized 43 mg 43 mg PO DAILY 03/12/23 03/12/23 capsule haloperidol 10 mg tablet 10 mg PO BEDTIME 03/12/23 03/12/23 hydroxyzine HCl 50 mg tablet 50 mg PO TID PRN panic attack 03/12/23 03/12/23 insulin degludec 200 unit/mL (3 160 unit subcut DAILY 03/12/23 03/12/23 mL) subcutaneous pen (Tresiba FlexTouch U-200 insulin) lorazepam 1 mg tablet 1 mg PO BID PRN Anxiety 03/12/23 03/12/23 meloxicam 7.5 mg tablet 7.5 mg PO QAM 03/12/23 03/12/23 metformin 500 mg tablet,extended 1,000 mg PO BID 03/12/23 03/12/23 release 24 hr paliperidone palmitate 234 mg/1.5 234 mg IM QMONTH 03/12/23 03/12/23 mL intramuscular syringe (Invega Sustenna) prazosin 1 mg capsule 2 mg PO BEDTIME nightmares 03/12/23 03/12/23 rosuvastatin 20 mg tablet 20 mg PO DAILY 03/12/23 03/12/23 trazodone 150 mg tablet 150 mg PO BEDTIME PRN Insomnia 03/12/23 03/12/23 Allergies Allergy/AdvReac Type Severity Reaction Status Date / Time No Known Allergies Allergy Verified 02/14/23 22:47 [No Known Allergies*] Review of Systems Review of Systems: Yes all other systems are reviewed and are negative Constitutional: Constitutional: Reports no additional constitutional complaints, Denies body ache(s), Denies chills, Denies fever(s), Denies headache(s) and Denies weakness Eyes: Eyes: Reports no additional eye complaints and Denies change in vision ENT: Reports system reviewed and no additional complaints, except as documented, Denies dizziness, Denies headache(s), Denies nasal congestion, Denies nasal discharge and Denies neck pain Cardiovascular: Cardiovascular: Reports no additional cardiovascular complaints, Denies chest pain, Denies leg edema and Denies dyspnea Respiratory: Respiratory: Reports no additional respiratory complaints, Denies cough and Denies dyspnea Gastrointestinal: Gastrointestinal: Reports no additional gastrointestinal complaints, Denies abdominal pain, Denies diarrhea, Denies nausea and Denies vomiting Genitourinary: Genitourinary: Denies urinary incontinence Musculoskeletal: Musculoskeletal: Reports no additional musculoskeletal complaints, Denies back pain, Reports arthralgias, Denies joint swelling, Denies limited range of motion, Denies neck pain, Denies numbness and Denies tingling Integumentary/Breasts: Skin/Breast: Reports system reviewed and no additional complaints, except as docu and Denies rash Neurologic: Reports system reviewed and no additional complaints, except as documented, Denies Abnormal speech present, Denies dizziness, Denies headache(s), Denies numbness, Denies tingling and Denies weakness [facility] Past Medical History Attestation statement: The following information was validated with the patient. 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 Diabetes type 2, uncontrolled Bipolar disorder with psychotic features PTSD (post-traumatic stress disorder) Concussion Asthma Depression Depression Bipolar disorder Anxiety Diabetes mellitus, type 2 Social History Social History Household Members: Family Household Members Other:: mom and sister Housing: Apartment Do you presently have visiting nurse or other home services: No Alcohol intake: current Alcohol intake frequency: holidays/special occasions only Alcohol type: beer, wine and hard liquor Patient Tobacco Use Status: Current everyday Tobacco user Tobacco use type: Cigarette and Smokeless Tobacco Cigarette Packs Per Day: 3 Cigarettes Per Day: 60.0 Years Smoked: 4 years e-Cigarette/Vaping Use: Currently Using Second Hand Smoke Exposure: Yes Substance Use Type: Caffiene Advance Directives: No service: No Current occupational status: disabled 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 Sexual orientation: Decline to Answer Physical Exam Vital Signs: Vital Signs: Last Vital Signs Temp 98 F 04/03/23 16:42 Pulse 94 04/03/23 16:42 Resp 20 04/03/23 16:42 BP 100/53 L 04/03/23 16:42 Pulse Ox 95 04/03/23 16:42 O2 Del Method Room Air 04/03/23 16:42 BMI result Body Mass Index 42.7 Const: General: cooperative, healthy appearing, comfortable and no acute distress Orientation/consciousness: patient oriented x3 Limitations: no limitations HEENT: Head: Yes normal to inspection Ears: hearing grossly normal bilaterally General nose exam: Normal external nose present Face and sinus: Yes normal facial exam Mouth: Normal oral and palatal mucosa present Throat: Yes posterior oropharynx normal Eyes: General: appearance normal, both eyes and all related structures Pupils: Equal, round and reactive pupils present Neck: Neck: Yes normal visual inspection Chest: Chest palpation & inspection: normal inspection of the chest Resp: Effort & Inspection: normal respiratory effort Auscultation: clear to auscultation bilaterally Cardio: Rate: regular rate Rhythm: regular rhythm Peripheral pulses: Peripheral pulses 2+ throughout GI: Inspection: Yes normal to inspection Palpation (GI): Soft to palpation and nontender Auscultation: normal bowel sounds Back/Spine/Pelvis: Thoracic/Lumbar Spine: thoracic and lumbar spine normal to inspection Skin: General skin exam: no rashes or lesions noted Neuro: General: patient oriented x3, no focal motor deficits and normal sensation to monofilament Cranial nerves: Yes Equal, round and reactive pupils present Cognition (Neuro): normal cognition Speech: No Abnormal speech present Gait exam (Neuro): Normal gait present Motor exam (neuro): 5/5 motor strength present throughout Extrem: Other: There is tenderness on p palpation over the right anterior knee. Patient has active flexion and extension at the knee with no difficulty. No ligamental laxity. There are normal DP and PT pulses distally. There is normal sensation distally. The patient is able to perform full range of motion of the right ankle and foot with no difficulty. Patient has some mild tenderness on exam over the right anterior thigh and over the right anterior hip with full active range of motion. I do not appreciate any ecchymosis, swelling or deformity. General: Yes normal to inspection Course Course Course Narrative: X-ray show no fracture. Likely contusion. Will keep the Kwame patient and given crutches for her. I reviewed rice. Reviewed and head use at home. Reviewed worrisome signs and symptoms of when to return to the emergency room. Comfortable plan for discharge home. Procedures Orthopedic Splinting/Casting Injury #1: Side: right Lower Extremity Injury Location: knee Lower Extremity Immobilizer: Kwame wrap Other Orthopedic Equipment: crutches Medical Decision Making Medical Decision Making MDM Narrative: 22-year-old male with history of asthma, diabetes, borderline personality disorder, schizoaffective disorder presents to the ER with complaints of right knee pain which radiates to the right hip. Patient reports he was walking and was not looking or he was going causing himself to trip landing directly onto the right knee. Patient reports he was able to get up and stand but that there is pain with walking. He feels pain which is in his right knee and in his right hip. There is no head strike or loss of consciousness. There is tenderness on p palpation over the right anterior knee. Patient has active flexion and extension at the knee with no difficulty. No ligamental laxity. There are normal DP and PT pulses distally. There is normal sensation distally. The patient is able to perform full range of motion of the right ankle and foot with no difficulty. Patient has some mild tenderness on exam over the right anterior thigh and over the right anterior hip with full active range of motion. I do not appreciate any ecchymosis, swelling or deformity. Plan to check x-ray Differential Diagnosis Differential Diagnoses: The differential diagnosis associated with the presentation includes Contusion, strain, sprain, fracture Low concern for vascular injury, dislocation, tendon rupture Admission/Observation Consideration of admission/observation: Escalation of care including admission/observation considered Low concern for vascular injury, dislocation, tendon rupture, complex fracture to suggest need for emergent orthopedic consultation and or admission and or surgical intervention Independent Interpretation I performed an independent interpretation of an: Plain X-Ray Interpretation: X-rays of the right knee and hip are unremarkable. I reviewed the radiology report and agree with the finding Radiology Impression Discussion of test interpretation with radiology: I have reviewed the radiologist's reading. Radiologist Impression: [place] [id number] XRay Report Signed Patient: Williams Fontanez MR#: [id number] : 2000 Acct:[id number] Age/Sex: 22 / M ADM Date: 04/03/23 Loc: HO.ED Attending Dr: Ordering Physician: Antonette Pedro NP Date of Service: 04/03/23 Procedure(s): XR knee RT 4V Accession Number(s): [id number] cc: Gricel Daniel; Antonette Pedro NP~ EXAMINATION: XR KNEE, RIGHT CLINICAL INFORMATION: Fall, pain COMPARISON: None available. TECHNIQUE: Four views of the right knee. FINDINGS: No visible acute fracture or dislocation. Alignment Is anatomic. Joint spaces are maintained. No abnormal soft tissue calcification. No significant effusion seen. XR/XR knee RT 4V IMPRESSION: No radiographic evidence of acute fracture or malalignment. [address] [address] XRay Report Signed Patient: Williams Fontanez MR#: [id number] : 2000 Acct:[id number] Age/Sex: 22 / M ADM Date: 04/03/23 Loc: HO.ED Attending Dr: Ordering Physician: Antonette Pedro NP Date of Service: 04/03/23 Procedure(s): XR hip RT w PEL1V Accession Number(s): [id number] cc: Gricel Daniel; Antonette Pedro NP~ EXAMINATION: XR HIP, RIGHT CLINICAL INFORMATION: Fall, pain COMPARISON: None available. TECHNIQUE: Two views of the right hip. Pelvis 2 views FINDINGS: Right hip: Alignment is anatomic. Hip joint space is maintained. No visible acute fracture or dislocation. No abnormal soft tissue calcification. Pelvis: Alignment is anatomic. Left hip joint space is maintained. No acute left hip fracture or dislocation. SI joints and symphysis pubis are intact. No acute pubic rami or pelvic fractures identified. There is gas and stool projected over the pelvis, limiting evaluation. Phlebolith in the pelvis. No dilated bowel loops seen. XR/XR hip RT w PEL1V IMPRESSION: No radiographic evidence of acute fracture or dislocation. If there is persistent symptoms, clinical concern for a radiographically occult fracture, with evaluation with CT scan can be obtained. Independent Historian Clinical information obtained from an independent historian. History obtained from or confirmed by: EMS Clinical information obtained from EMS and confirm with patient Tests considered The following testing was considered but not selected: Low concern for vascular injury, dislocation, tendon rupture, complex fracture to suggest need for emergent MRI, CTA, ultrasound Discharge Plan Discharge Clinical Impression: Contusion of knee, right Patient Disposition: Home, Self-Care Instructions: Contusion in Adults (ED) Additional Instructions: Your x-ray show no fracture Take Motrin or Tylenol as needed for any pain Apply ice to the affected area Follow-up with your primary care doctor for any continued symptoms Prescriptions: No Action divalproex 500 mg tablet,delayed release (DR/EC) 500 mg PO DAILY insulin lispro [Humalog Tempo Pen(U-100)Insuln] 100 unit/mL insulin pen 1 sliding scale dose subcut BID-QID PRN (Reason: Hyperglycemia) Trulicity 0.75 mg/0.5 mL pen injector 4.5 mg subcut QWEEK divalproex 500 mg tablet,delayed release (DR/EC) 1,000 mg PO BEDTIME prazosin 1 mg capsule 2 mg PO BEDTIME bupropion HCl 150 mg tablet extended release 24 hr 150 mg PO QAM Invega Sustenna 234 mg/1.5 mL syringe 234 mg IM QMONTH haloperidol 10 mg tablet 10 mg PO BEDTIME lorazepam 1 mg tablet 1 mg PO BID PRN (Reason: Anxiety) meloxicam 7.5 mg tablet 7.5 mg PO QAM insulin degludec [Tresiba FlexTouch U-200] 200 unit/mL (3 mL) insulin pen 160 unit subcut DAILY hydroxyzine HCl 50 mg tablet 50 mg PO TID PRN (Reason: panic attack) trazodone 150 mg tablet 150 mg PO BEDTIME PRN (Reason: Insomnia) metformin 500 mg tablet extended release 24 hr 1,000 mg PO BID rosuvastatin 20 mg tablet 20 mg PO DAILY fenofibrate micronized 43 mg capsule 43 mg PO DAILY budesonide-formoterol [Symbicort] 80-4.5 mcg/actuation HFA aerosol inhaler 2 puff INHALATION BID Referrals: Gricel Daniel MD [Primary Care Provider] - 1 week (for persistent symptoms )
[2023-04-03 16:41] VITALS: BP 132/82; PULSE 76; O2SAT 98
[2023-04-03 16:42] VITALS: BP 100/53; PULSE 94; RESP 20; TEMP 36.6; O2SAT 95; BMI 42.7
--- NOTE | 2023-04-03 17:46 | MHC.EDTECH ---
patient refuses cratchers
== END 2023-04-03 18:08 | disposition home or self-care (01) ==
PROVIDERS: Emergency Provider Emergency Medicine; PCP General Practice
DX: S80.01XA Contusion of right knee, initial encounter (principal); S70.01XA Contusion of right hip, initial encounter; M79.604 Pain in right leg; M25.551 Pain in right hip; F25.9 Schizoaffective disorder, unspecified; W01.0XXA Fall on same level from slipping, tripping and stumbling without subsequent striking against object, initial encounter; Y93.9 Activity, unspecified; Y92.9 Unspecified place or not applicable; Y99.9 Unspecified external cause status; Z79.899 Other long term (current) drug therapy; F17.210 Nicotine dependence, cigarettes, uncomplicated; Z71.6 Tobacco abuse counseling
CPT/HCPCS: 29505; 73502; 73564; 99282; 99284

== ENCOUNTER 2023-04-05 12:11 | Outpatient (AMB) | payer MEDICAID, SELFPAY ==
--- NOTE | 2023-04-05 12:43 | A.OFFVIS_ITS ---
Intake Intake Visit Reasons: OV - B/L shoulder pain Intake Note: Williams 22 yr old male who is right hand dominant , presents today for B/L shoulder pain. States his pain has moved to his shoulder blades. He reports that he didn't go to PT due to not having a ride. Patient states that he tired doing home exercises which didn't help. Allergies No Known Allergies [No Known Allergies*] Allergy (Verified 04/05/23 12:52) HPI OV - B/L shoulder pain HPI Details 22-year-old right hand dominant male who presents in the office today for a follow up of bilateral shoulder pain. He claims his pain moves to his shoulder blades with the right being worse then the left. He states he did not attend physical therapy due to not having a ride. He claims he has tried to work on at home exercises which did not help. He confirms a history of trigger point injections in the right shoulder in the past which gave him relief. Patient has a significant medical history of diabetes mellitus. [facility] Medical History Hyperglycemia 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 Diabetes type 2, uncontrolled Bipolar disorder with psychotic features PTSD (post-traumatic stress disorder) Concussion Asthma Depression Depression Bipolar disorder Anxiety Diabetes mellitus, type 2 Social History Household Members: Family Household Members Other:: mom and sister Housing: Apartment Do you presently have visiting nurse or other home services: No Alcohol intake: current Alcohol intake frequency: holidays/special occasions only Alcohol type: beer, wine and hard liquor Patient Tobacco Use Status: Current everyday Tobacco user Tobacco use type: Cigarette and Smokeless Tobacco Cigarette Packs Per Day: 3 Cigarettes Per Day: 60.0 Years Smoked: 4 years e-Cigarette/Vaping Use: Currently Using Second Hand Smoke Exposure: Yes Substance Use Type: Caffiene service: No Current occupational status: disabled 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 Sexual orientation: Decline to Answer Review of Systems Const All systems reviewed & are unremarkable except as noted in HPI and below Physical Exam Const General: cooperative, healthy appearing and no acute distress HEENT Head: Yes normal to inspection, Yes normocephalic and Yes atraumatic Resp Effort & Inspection: normal respiratory effort and able to speak in complete sentences Cardio Rate: regular rate Peripheral pulses: Peripheral pulses 2+ throughout GI Palpation (GI): Soft to palpation Skin Lesions: no lesions Rashes: no rashes Extrem Other: Right shoulder: Forward flexion and abduction to 90 degrees. Able to reach T12. Pain with cross-body reach. 4/5 strength with empty can. Negative drop arm. NVI. Tenderness to palpation over the scapula. Assessment & Plan Assessment & Plan (1) Myofascial pain on right side: Code(s): M79.18 - Myalgia, other site Plan Mr. Fontanez is a 22-year-old right hand dominant male who presents in the office today for a follow up of bilateral shoulder pain. He claims his pain moves to his shoulder blades with the right being worse then the left. He states he did not attend physical therapy due to not having a ride. He claims he has tried to work on at home exercises which did not help. He confirms a history of trigger point injections in the right shoulder in the past which gave him relief. Patient has a significant medical history of diabetes mellitus. The patient will be referred to physiatry for possible trigger point injection of the right shoulder. Follow up will be PRN, or sooner if needed. Patient Instructions: Scribed for Radha Talbert PA-C by Joanie Juares medical geneticist, on 04/05/2023 at 12:15 pm, EST. Coding Level of Care Code Est Pt Level 3 (11370) Diagnoses Myofascial pain on right side M79.18
== END 2023-04-05 13:09 | disposition home or self-care (01) ==
PROVIDERS: Visit Provider Physician Assistant
DX: M79.18 Myalgia, other site (principal)
CPT/HCPCS: 99213

== ENCOUNTER → 2023-04-05 12:11 | Outpatient (BNVA) | payer MEDICAID, SELFPAY | PROVIDERS: Visit Provider Physician Assistant | DX: M79.18 Myalgia, other site (principal) | CPT/HCPCS: 99212 ==

== ENCOUNTER 2023-04-11 13:34 | Emergency (ER) | payer MEDICAID, SELFPAY ==
--- NOTE | 2023-04-11 14:05 | ED_ITS ---
HPI - General Adult General Chief complaint: Abdominal Pain Stated complaint: cough chest pain Time Seen by Provider: 04/11/23 17:12 Source: patient and RN notes reviewed Mode of arrival: ambulatory Limitations: no limitations History of Present Illness HPI narrative: This is a 23-year-old male, with a past medical history of diabetes, PTSD, and schizophrenia, who presents emergency department with complaints of burning chest pain which started this morning. Patient reports associated nausea. Patient also endorses a slight cough which started yesterday. He states that the pain in his chest worsens with cough. He denies any fevers, chills, shortness of breath, abdominal pain, vomiting or diarrhea. He has a history of acid reflux. No other complaints or concerns at this time. MD complaint: Burning chest pain Onset (ago): day(s) Radiation: non-radiation Severity: moderate Pain Consistency: constant Relieving factors: none Exacerbating factors: none Associated symptoms: denies other symptoms Treatments prior to arrival: none Related Data Home Medications Medication Instructions Recorded Confirmed divalproex 500 mg tablet,delayed 500 mg PO DAILY 08/14/22 03/12/23 release dulaglutide 0.75 mg/0.5 mL 4.5 mg subcut QWEEK 08/14/22 03/12/23 subcutaneous pen injector (Trulicity) insulin lispro 100 unit/mL 1 sliding scale dose subcut 08/14/22 03/12/23 subcutaneous pen (Humalog Tempo BID-QID PRN Hyperglycemia Pen (U-100) Insulin) divalproex 500 mg tablet,delayed 1,000 mg PO BEDTIME 02/19/23 03/12/23 release budesonide-formoterol HFA 80 2 puff inhalation BID 03/12/23 03/12/23 mcg-4.5 mcg/actuation aerosol inhaler (Symbicort) bupropion HCl 150 mg 24 hr tablet, 150 mg PO QAM depressive disorder 03/12/23 03/12/23 extended release fenofibrate micronized 43 mg 43 mg PO DAILY 03/12/23 03/12/23 capsule haloperidol 10 mg tablet 10 mg PO BEDTIME 03/12/23 03/12/23 hydroxyzine HCl 50 mg tablet 50 mg PO TID PRN panic attack 03/12/23 03/12/23 insulin degludec 200 unit/mL (3 160 unit subcut DAILY 03/12/23 03/12/23 mL) subcutaneous pen (Tresiba FlexTouch U-200 insulin) lorazepam 1 mg tablet 1 mg PO BID PRN Anxiety 03/12/23 03/12/23 meloxicam 7.5 mg tablet 7.5 mg PO QAM 03/12/23 03/12/23 metformin 500 mg tablet,extended 1,000 mg PO BID 03/12/23 03/12/23 release 24 hr paliperidone palmitate 234 mg/1.5 234 mg IM QMONTH 03/12/23 03/12/23 mL intramuscular syringe (Invega Sustenna) prazosin 1 mg capsule 2 mg PO BEDTIME nightmares 03/12/23 03/12/23 rosuvastatin 20 mg tablet 20 mg PO DAILY 03/12/23 03/12/23 trazodone 150 mg tablet 150 mg PO BEDTIME PRN Insomnia 03/12/23 03/12/23 Previous Rx's Medication Instructions Recorded aluminum-mag hydroxide-simethicone 5 ml PO 5XD PRN indigestion #3,000 04/11/23 200 mg-200 mg-20 mg/5 mL oral susp mL (Maalox Advanced) Allergies Allergy/AdvReac Type Severity Reaction Status Date / Time No Known Allergies Allergy Verified 04/11/23 14:06 [No Known Allergies*] Review of Systems 2 Review of Systems: Yes all other systems are reviewed and are negative Constitutional: Constitutional: Reports as per [facility] Past Medical History Attestation statement: The following information was validated with the patient. Medical History Hyperglycemia 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 Diabetes type 2, uncontrolled Bipolar disorder with psychotic features PTSD (post-traumatic stress disorder) Concussion Asthma Depression Depression Bipolar disorder Anxiety Diabetes mellitus, type 2 Social History Social History Household Members: Family Household Members Other:: mom and sister Housing: Apartment Do you presently have visiting nurse or other home services: No Alcohol intake: current Alcohol intake frequency: holidays/special occasions only Alcohol type: beer, wine and hard liquor Patient Tobacco Use Status: Current everyday Tobacco user Tobacco use type: Cigarette and Smokeless Tobacco Cigarette Packs Per Day: 3 Cigarettes Per Day: 60.0 Years Smoked: 4 years e-Cigarette/Vaping Use: Currently Using Second Hand Smoke Exposure: Yes Substance Use Type: Caffiene Advance Directives: No service: No Current occupational status: disabled 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 Sexual orientation: Decline to Answer Physical Exam ED Vital Signs: Vital Signs - 24 hr 04/11/23 14:06 Temperature 97.4 F Pulse Rate 97 Respiratory Rate 16 Blood Pressure 114/71 Pulse Oximetry 96 Oxygen Delivery Method Room Air BMI result Body Mass Index 42.7 Const General: cooperative, comfortable and no acute distress Orientation/consciousness: patient oriented x3 Limitations: no limitations HENMT Head: Yes normal to inspection, Yes normocephalic and Yes atraumatic Ears: hearing grossly normal bilaterally General nose exam: Normal external nose present Face and sinus: Yes normal facial exam Mouth: Normal oral and palatal mucosa present, oropharynx normal and moist mucous membranes Throat: Yes posterior oropharynx normal Eyes General: appearance normal, both eyes and all related structures Eyelids: Yes eyelids normal Conjunctivae: conjunctivae normal Sclerae: sclerae normal Pupils: Equal, round and reactive pupils present EOM: EOMs intact bilaterally Neck Neck: Yes normal visual inspection, Yes full ROM and Yes no lymphadenopathy Lymphatic: no lymphadenopathy noted Chest Chest palpation & inspection: normal inspection of the chest Resp Effort & Inspection: normal respiratory effort and able to speak in complete sentences Auscultation: clear to auscultation bilaterally, no crackles, no rales, no rhonchi and no wheezes Cardio Rate: regular rate Rhythm: regular rhythm Heart sounds: S1 normal heart sound present and S2 normal heart sound present GI Other: Mild epigastric tenderness palpation. No rebound or guarding. Normoactive bowel sounds present in all 4 quadrants. Inspection: Yes normal to inspection Skin General skin exam: no rashes or lesions noted Trauma: no lacerations or abrasions Wounds: no wounds Neuro General: patient oriented x3 and moves all extremities Cranial nerves: Yes Equal, round and reactive pupils present Extrem General: Yes normal to inspection Right upper extremity: normal to inspection Left upper extremity: normal to inspection Right lower extremity: normal to inspection Left lower extremity: normal to inspection Course Course Course Narrative: RME performed by Emani Dowd PA-C. Patient is a 23 year old assigned male at presenting to the emergency department with a burning sensation in his epigastric area / chest. Labs ordered. Patient placed back in the waiting room pending room availability and results. Reevaluation(s) Reevaluation #1: pt re-evaluated after receiving GI cocktail - symptoms completely resolved. d/c with maalox, advised to f/u with PCP and given dietary modifications. Pt understans and agrees with plan. Stable for d/c. Medications Administered Discontinued Medications Generic Name Dose Route Start Last Admin Trade Name Freq PRN Reason Stop Dose Admin Al Hydroxide/Mg Hydroxide 30 ml 04/11/23 17:21 04/11/23 18:09 Magnesium Hydrox/Alum Hydrox 30 Ml Oral.Susp PO 04/11/23 17:22 30 ml ONCE ONE Administration Lidocaine HCl 15 ml 04/11/23 17:21 04/11/23 18:09 Lidocaine Hcl Viscous 2 % 15 Ml Solution MUCOUS MEM 04/11/23 17:22 15 ml ONCE ONE Administration Medical Decision Making Medical Decision Making [facility] Narrative: 23-year-old male presenting to the emergency department for evaluation of burning chest pain which started this morning. He reports associated nausea. On arrival, vital signs within normal limits. Labs were obtained out triage which are unremarkable, mild hyperglycemia at 137, patient has a history of diabetes. EKG normal sinus rhythm. Symptoms likely due to gastritis however mother who is on phone requesting chest x-ray given new cough. Lungs are clear to auscultation bilaterally. No chest pain upon palpation of the anterior chest wall. Patient appears comfortable and nontoxic appearing. ACS is considered however unlikely given a heart score of 0. PE considered however patient is PERC negative. Will trial GI cocktail and reassess. Differential Diagnosis Differential Diagnoses: The differential diagnosis associated with the presentation includes Gastritis, costochondritis, URI, pneumonia, bronchitis Lab Data [facility] Lab Attestation statement: I reviewed the patient's lab results. See above 04/11/23 15:12 04/11/23 15:12 Labs: Lab Results 04/11/23 Range/Units 15:12 WBC 10.1 (4.8-10.8) X10*3/uL RBC 5.47 (4.60-5.80) X10*6/uL Hgb 16.3 (14.0-18.0) g/dl Hct 47.4 (42.0-52.0) % MCV 86.7 (80.0-98.0) fL MCH 29.8 (27.0-33.0) pg MCHC 34.4 (31.0-36.0) g/dl RDW 11.6 (11.0-16.0) % Plt Count 205 (160-400) X10*3/uL MPV 9.7 (9.4-12.4) fL Immature Gran % (Auto) 0.4 (0.0-0.4) % Neut % (Auto) 58.4 (45-73) % Lymph % (Auto) 28.3 (20-40) % Coles % (Auto) 11.0 (2-11) % Eos % (Auto) 1.5 (0-4) % Baso % (Auto) 0.4 (0-2) % Lymph # (Auto) 2.9 (1.2-4.9) X10*3/uL Coles # (Auto) 1.1 (0.1-1.2) X10*3/uL Eos # (Auto) 0.2 (0.0-0.4) X10*3/uL Baso # (Auto) 0.0 (0.0-0.2) X10*3/uL Abs Immat Gran (auto) 0.04 H (0.00-0.03) X10*3/uL Absolute Neuts (auto) 5.9 (2.0-8.3) x10*3/uL Absolute Nucleated RBC 0.000 (0.0-0.012) X10*3/uL Nucleated RBC % (auto) 0.0 (0.0-0.2) /100WBC Sodium 140 (135-145) mmol/L Potassium 4.4 (3.3-5.1) mmol/L Chloride 109 H (96-108) mmol/L Carbon Dioxide 20 L (22-29) mmol/L Anion Gap 15 (12-20) BUN 11 (9-16) mg/dL Creatinine 0.83 (0.5-1.4) mg/dL Estim Creat Clear Calc 187.2 Estimated GFR > 60 Random Glucose 137 H (60-115) mg/dL Calcium 10.2 (8.4-10.2) mg/dL Magnesium 1.7 (1.6-2.6) mg/dL Total Bilirubin 0.3 (0.0-1.0) mg/dL AST 18 (5-37) U/L ALT 14 (0-40) U/L Alkaline Phosphatase 54 (39-117) U/L Troponin I High Sens < 2.7 (<3.5-35.0) ng/L Total Protein 7.0 (6.5-8.0) g/dL Albumin 4.0 (3.5-5.0) g/dL Radiology Impression Discussion of test interpretation with radiology: I have reviewed the radiologist's reading. Discharge Plan Discharge Clinical Impression: Gastritis Patient Disposition: Home, Self-Care Instructions: Gastritis (ED) Additional Instructions: Your chest x-ray was normal. Your lab work was reassuring. Your symptoms are likely due to acid reflux and gastritis. This is inflammation of your stomach which can cause a burning sensation in your chest and stomach. We had given you a medication called Maalox which provided you with complete resolution of your symptoms. I am prescribing you Maalox which you can take as needed for symptoms. If any new or worsening symptoms occur including but not limited to chest pain or shortness breath, please return for re-evaluation. Prescriptions: New alum-mag hydroxide-simeth [Maalox Advanced] 200-200-20 mg/5 mL suspension 5 ml PO 5XD PRN (Reason: indigestion) Qty: 3000 0RF No Action divalproex 500 mg tablet,delayed release (DR/EC) 500 mg PO DAILY insulin lispro [Humalog Tempo Pen(U-100)Insuln] 100 unit/mL insulin pen 1 sliding scale dose subcut BID-QID PRN (Reason: Hyperglycemia) Trulicity 0.75 mg/0.5 mL pen injector 4.5 mg subcut QWEEK divalproex 500 mg tablet,delayed release (DR/EC) 1,000 mg PO BEDTIME prazosin 1 mg capsule 2 mg PO BEDTIME bupropion HCl 150 mg tablet extended release 24 hr 150 mg PO QAM Invega Sustenna 234 mg/1.5 mL syringe 234 mg IM QMONTH haloperidol 10 mg tablet 10 mg PO BEDTIME lorazepam 1 mg tablet 1 mg PO BID PRN (Reason: Anxiety) meloxicam 7.5 mg tablet 7.5 mg PO QAM insulin degludec [Tresiba FlexTouch U-200] 200 unit/mL (3 mL) insulin pen 160 unit subcut DAILY hydroxyzine HCl 50 mg tablet 50 mg PO TID PRN (Reason: panic attack) trazodone 150 mg tablet 150 mg PO BEDTIME PRN (Reason: Insomnia) metformin 500 mg tablet extended release 24 hr 1,000 mg PO BID rosuvastatin 20 mg tablet 20 mg PO DAILY fenofibrate micronized 43 mg capsule 43 mg PO DAILY budesonide-formoterol [Symbicort] 80-4.5 mcg/actuation HFA aerosol inhaler 2 puff INHALATION BID Interventions: ED Discharge Assessment Last Done: 04/11/23 19:14 Discharge Date/Time: 04/11/23 19:14
[2023-04-11 14:06] VITALS: BP 114/71; PULSE 97; RESP 16; TEMP 36.3; O2SAT 96; BMI 42.7
[2023-04-11 15:32] LABS: Alanine Aminotransferase 14 U/L (0-40); Alkaline Phosphatase 54 U/L (39-117); Anion Gap 15 (12-20); Aspartate Amino Transferase 18 U/L (5-37); Bilirubin Total 0.3 mg/dL (0.0-1.0); Blood Urea Nitrogen 11 mg/dL (9-16); Calcium 10.2 mg/dL (8.4-10.2); Carbon Dioxide 20 mmol/L (22-29); Chloride 109 mmol/L (96-108); Creatinine Clr Calc Pharmacy 187.2; Estimated Glomerular Filt Rate > 60; Glucose Random 137 mg/dL (60-115); Magnesium 1.7 mg/dL (1.6-2.6); Potassium 4.4 mmol/L (3.3-5.1); Sodium 140 mmol/L (135-145)
--- NOTE | 2023-04-11 19:13 | PC.NURSE ---
pt assessed and discharge by provider, the Rn only reviewed discharge instruction with pt. pt verbalized understanding, no sign of distress.
== END 2023-04-11 19:14 | disposition home or self-care (01) ==
PROVIDERS: Physician Assistant Medical; Emergency Provider Emergency Medicine; PCP General Practice
DX: K29.70 Gastritis, unspecified, without bleeding (principal); R07.89 Other chest pain; R05.9 Cough, unspecified; R11.0 Nausea; E11.9 Type 2 diabetes mellitus without complications; F17.210 Nicotine dependence, cigarettes, uncomplicated; Z71.6 Tobacco abuse counseling; Z79.899 Other long term (current) drug therapy; Z79.4 Long term (current) use of insulin
CPT/HCPCS: 36415; 71046; 80053; 83735; 84484; 85025; 93005; 99283

== ENCOUNTER 2023-06-06 19:47 | Emergency (ER) | payer MEDICAID, SELFPAY ==
--- NOTE | ~2023-06-06 | XR_ITS ---
EXAMINATION: XR SHOULDER, RIGHT CLINICAL INFORMATION: Pain and injury COMPARISON: None available. TECHNIQUE: AP external rotation, Grashey, scapular Y, and axillary views of the right shoulder. FINDINGS: The bones and soft tissues are normal. No fracture. Glenohumeral and acromioclavicular alignment is anatomic with normal joint space. No abnormal soft tissue calcifications. XR/XR shoulder RT min 2V IMPRESSION: Normal right shoulder.
[2023-06-06 20:15] VITALS: BP 132/64; PULSE 88; RESP 20; TEMP 36.7; O2SAT 98; BMI 51.4
--- NOTE | 2023-06-06 20:17 | ED_ITS ---
HPI - General Adult General Chief complaint: Fall Stated complaint: right arm shoulder and neck pain Time Seen by Provider: 06/06/23 21:46 Source: patient Mode of arrival: ambulatory Limitations: no limitations History of Present Illness HPI narrative: Patient is a 23 year old assigned male at with a history of DM presenting to the emergency department today with right shoulder pain. Patient states that he slipped and fell this afternoon and hurt his right shoulder. Patient denies hitting his head with the incident. Patient denies any loss of consciousness with the incident. Patient denies any dizziness, lightheadedness, abdominal pain, nausea, vomiting, fever, chills, blurry vision, double vision, loss of vision, chest pain, difficulty breathing, shortness of breath, back pain, night sweats, pain with urination, increased urinary frequency, increased urinary urgency, blood in his urine or stool, syncope or a near syncopal episode, bowel incontinence, bladder incontinence, bowel retention, bladder retention, or any other complaints at this time. Onset (ago): hour(s) Location: right (shoulder) Severity: mild Severity scale (1-10): 3 Quality: aching and dull Pain Consistency: constant Relieving factors: none Exacerbating factors: none Associated symptoms: denies other symptoms Treatments prior to arrival: none Related Data Home Medications Medication Instructions Recorded Confirmed divalproex 500 mg tablet,delayed 500 mg PO DAILY 08/14/22 03/12/23 release dulaglutide 0.75 mg/0.5 mL 4.5 mg subcut QWEEK 08/14/22 03/12/23 subcutaneous pen injector (Trulicity) insulin lispro 100 unit/mL 1 sliding scale dose subcut 08/14/22 03/12/23 subcutaneous pen (Humalog Tempo BID-QID PRN Hyperglycemia Pen (U-100) Insulin) divalproex 500 mg tablet,delayed 1,000 mg PO BEDTIME 02/19/23 03/12/23 release budesonide-formoterol HFA 80 2 puff inhalation BID 03/12/23 03/12/23 mcg-4.5 mcg/actuation aerosol inhaler (Symbicort) bupropion HCl 150 mg 24 hr tablet, 150 mg PO QAM depressive disorder 03/12/23 03/12/23 extended release fenofibrate micronized 43 mg 43 mg PO DAILY 03/12/23 03/12/23 capsule haloperidol 10 mg tablet 10 mg PO BEDTIME 03/12/23 03/12/23 hydroxyzine HCl 50 mg tablet 50 mg PO TID PRN panic attack 03/12/23 03/12/23 insulin degludec 200 unit/mL (3 160 unit subcut DAILY 03/12/23 03/12/23 mL) subcutaneous pen (Tresiba FlexTouch U-200 insulin) lorazepam 1 mg tablet 1 mg PO BID PRN Anxiety 03/12/23 03/12/23 meloxicam 7.5 mg tablet 7.5 mg PO QAM 03/12/23 03/12/23 metformin 500 mg tablet,extended 1,000 mg PO BID 03/12/23 03/12/23 release 24 hr paliperidone palmitate 234 mg/1.5 234 mg IM QMONTH 03/12/23 03/12/23 mL intramuscular syringe (Invega SustKids Quizine) prazosin 1 mg capsule 2 mg PO BEDTIME nightmares 03/12/23 03/12/23 rosuvastatin 20 mg tablet 20 mg PO DAILY 03/12/23 03/12/23 trazodone 150 mg tablet 150 mg PO BEDTIME PRN Insomnia 03/12/23 03/12/23 Previous Rx's Medication Instructions Recorded aluminum-mag hydroxide-simethicone 5 ml PO 5XD PRN indigestion #3,000 04/11/23 200 mg-200 mg-20 mg/5 mL oral susp mL (Maalox Advanced) cyclobenzaprine 5 mg tablet 5 mg PO TID PRN muscle spasm 7 06/06/23 days #21 tabs Allergies Allergy/AdvReac Type Severity Reaction Status Date / Time No Known Allergies Allergy Verified 04/11/23 14:06 [No Known Allergies*] Review of Systems Constitutional: Constitutional: Reports no additional constitutional complaints, Denies chills, Denies fever(s) and Denies night sweats Eyes: Eyes: Reports no additional eye complaints, Denies blurry vision, Denies change in vision, Denies diplopia, Denies eye discharge, Denies loss of vision and Denies eye pain ENT: Denies dizziness Cardiovascular: Cardiovascular: Reports no additional cardiovascular complaints, Denies chest pain, Denies lightheadedness, Denies Loss of Consciousness and Denies dyspnea Respiratory: Respiratory: Reports no additional respiratory complaints and Denies dyspnea Gastrointestinal: Gastrointestinal: Reports no additional gastrointestinal com plaints, Denies abdominal pain, Denies melena, Denies hematochezia, Denies change in bowel habits and Denies change in stool character Genitourinary: Genitourinary: Reports no additional male genitourinary complaints, Denies hematuria, Denies oliguria, Denies difficulty urinating, Denies dysuria, Denies urinary frequency, Denies urinary hesitancy, Denies urinary incontinence and Denies urinary urgency Musculoskeletal: Musculoskeletal: Reports no additional musculoskeletal complaints, Denies numbness and Denies tingling Comments: right shoulder pain Neurologic: Denies dizziness, Denies loss of vision, Denies numbness and Denies tingling Psychiatric: Psychiatric: Reports no additional psychiatric complaints Endocrine: Endocrine: Reports no additional endocrine complaints Hematologic/Lymphatic: Hematologic/Lymphatic: Reports no additional hematologic/lymphatic complaints Allergic/Immunologic: Allergic/Immunologic: Reports no additional allergic/immunologic complaints PMFSH Past Medical History Attestation statement: The following information was validated with the patient. 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 Diabetes type 2, uncontrolled Bipolar disorder with psychotic features PTSD (post-traumatic stress disorder) Concussion Asthma Depression Depression Bipolar disorder Anxiety Diabetes mellitus, type 2 Social History Social History Household Members: Family Household Members Other:: mom and sister Housing: Apartment Do you presently have visiting nurse or other home services: No Alcohol intake: current Alcohol intake frequency: holidays/special occasions only Alcohol type: beer, wine and hard liquor Patient Tobacco Use Status: Current everyday Tobacco user Tobacco use type: Cigarette and Smokeless Tobacco Cigarette Packs Per Day: 3 Cigarettes Per Day: 60.0 Years Smoked: 4 years e-Cigarette/Vaping Use: Currently Using Second Hand Smoke Exposure: Yes Substance Use Type: Caffiene Advance Directives: No Advance Directives Information Provided: No service: No Current occupational status: disabled 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 Sexual orientation: Decline to Answer Physical Exam ED Vital Signs: Vital Signs - 24 hr 06/06/23 20:15 Temperature 98.0 F Pulse Rate 88 Respiratory Rate 20 Blood Pressure 132/64 Pulse Oximetry 98 Oxygen Delivery Method Room Air BMI result Body Mass Index 51.4 Const General: cooperative, no acute distress, alert and awake Nutritional Appearance: well nourished Orientation/consciousness: patient oriented x3 Limitations: no limitations HENMT Head: Yes normal to inspection and Yes atraumatic Ears: hearing grossly normal bilaterally and external ears normal General nose exam: Normal external nose present, no nasal discharge noted and no epistaxis Face and sinus: Yes normal facial exam, No abrasion and No laceration Mouth: Normal oral and palatal mucosa present, no drooling and no muffled voice Eyes General: appearance normal, both eyes and all related structures Periorbital: periorbital findings normal Eyelids: Yes eyelids normal Conjunctivae: conjunctivae normal Pupils: Equal, round and reactive pupils present EOM: EOMs intact bilaterally Neck Neck: Yes normal visual inspection, Yes full ROM and Yes no lymphadenopathy Chest Chest palpation & inspection: normal inspection of the chest Resp Effort & Inspection: normal respiratory effort and able to speak in complete sentences GI Inspection: Yes normal to inspection Neuro General: patient oriented x3 and moves all extremities Cranial nerves: Yes Equal, round and reactive pupils present Cognition (Neuro): normal cognition Motor exam (neuro): 5/5 motor strength present throughout Sensory Exam: Normal double simultaneous stimulation for sensation Coordination: [id number] test normal Extrem General: Yes normal to inspection, Yes full ROM and Yes capillary refill normal Psych Appearance: grossly normal Mental Status: mental status grossly normal Affect: normal affect Attitude: cooperative Thought process: Normal thought process present Thought content: Normal thought content present Insight: Good insight present (Psych) Course Course Course Narrative: RME performed by Emani Dowd PA-C. Patient is a 23 year old assigned male at presenting to the emergency department with right shoulder pain after a trip and fall. Patient denies head strike or loss of consciousness. Imaging ordered. Patient placed back in the waiting room pending room availability and results. Medications Administered Discontinued Medications Generic Name Dose Route Start Last Admin Trade Name Freq PRN Reason Stop Dose Admin Cyclobenzaprine HCl 5 mg 06/06/23 21:48 06/06/23 21:54 Cyclobenzaprine Hcl 5 Mg Tablet PO 06/06/23 21:49 5 mg ONCE ONE Administration Medical Decision Making Medical Decision Making MDM Narrative: Patient is a 23 year old assigned male at with a history of DM presenting to the emergency department today with right shoulder pain. Patient's physical exam was unremarkable. Patient's right shoulder x-ray showed no acute process. I explained my physical exam findings as well as all test results to the patient. I answered all questions asked by the patient. Patient received PO Flexeril which he stated helped his pain significantly. I stressed the importance of the patient taking his medication as prescribed. I stressed the importance of the p atient following up with his primary care provider. I stressed the importance of the patient returning to the emergency department immediately if his symptoms were to worsen or if he were to develop any dizziness, shortness of breath, difficulty breathing, chest pain, blurry vision, loss of vision, nausea, vomiting, abdominal pain, fever, chills, back pain, or any other complaints. Patient verbalized agreement and understanding with this treatment plan and discharge. Differential Diagnosis Differential Diagnoses: The differential diagnosis associated with the presentation includes Right shoulder pain Right shoulder strain Right shoulder sprain Right shoulder fracture Independent Interpretation I performed an independent interpretation of an: Plain X-Ray Interpretation: My interpretation is in agreement with the radiologist's impression of this imaging study. EXAMINATION: XR SHOULDER, RIGHT CLINICAL INFORMATION: Pain and injury COMPARISON: None available. TECHNIQUE: AP external rotation, Grashey, scapular Y, and axillary views of the right shoulder. FINDINGS: The bones and soft tissues are normal. No fracture. Glenohumeral and acromioclavicular alignment is anatomic with normal joint space. No abnormal soft tissue calcifications. XR/XR shoulder RT min 2V IMPRESSION: Normal right shoulder. Dictated By: Aguila Salazar MD Signed By: Electronically signed by Aguila Salazar MD 06/06/23 2100 Radiology Impression Discussion of test interpretation with radiology: I have reviewed the radiologist's reading. Prescription Management I considered prescription management with: Pain Medication (patient prescribed pain medication.) Chronic Conditions Patient?s care impacted by: Diabetes Discharge Plan Discharge Clinical Impression: Acute shoulder pain Patient Disposition: Home, Self-Care Instructions: Shoulder Pain (ED) Additional Instructions: Follow up with your primary care provider. Return to the emergency department immediately if your symptoms worsen or if you develop any dizziness, shortness of breath, difficulty breathing, chest pain, blurry vision, loss of vision, nausea, vomiting, abdominal pain, fever, chills, back pain, or any other complaints. Prescriptions: New cyclobenzaprine 5 mg tablet 5 mg PO TID PRN (Reason: muscle spasm) 7 Days Qty: 21 0RF No Action divalproex 500 mg tablet,delayed release (DR/EC) 500 mg PO DAILY insulin lispro [Humalog Tempo Pen(U-100)Insuln] 100 unit/mL insulin pen 1 sliding scale dose subcut BID-QID PRN (Reason: Hyperglycemia) Trulicity 0.75 mg/0.5 mL pen injector 4.5 mg subcut QWEEK divalproex 500 mg tablet,delayed release (DR/EC) 1,000 mg PO BEDTIME prazosin 1 mg capsule 2 mg PO BEDTIME bupropion HCl 150 mg tablet extended release 24 hr 150 mg PO QAM Invega Sustenna 234 mg/1.5 mL syringe 234 mg IM QMONTH haloperidol 10 mg tablet 10 mg PO BEDTIME lorazepam 1 mg tablet 1 mg PO BID PRN (Reason: Anxiety) meloxicam 7.5 mg tablet 7.5 mg PO QAM insulin degludec [Tresiba FlexTouch U-200] 200 unit/mL (3 mL) insulin pen 160 unit subcut DAILY hydroxyzine HCl 50 mg tablet 50 mg PO TID PRN (Reason: panic attack) trazodone 150 mg tablet 150 mg PO BEDTIME PRN (Reason: Insomnia) metformin 500 mg tablet extended release 24 hr 1,000 mg PO BID rosuvastatin 20 mg tablet 20 mg PO DAILY fenofibrate micronized 43 mg capsule 43 mg PO DAILY budesonide-formoterol [Symbicort] 80-4.5 mcg/actuation HFA aerosol inhaler 2 puff INHALATION BID alum-mag hydroxide-simeth [Maalox Advanced] 200-200-20 mg/5 mL suspension 5 ml PO 5XD PRN (Reason: indigestion) Qty: 3000 0RF Referrals: Gricel Daniel MD [Primary Care Provider] - Print Language: French
[2023-06-06] MEDS: Cyclobenzaprine HCl 5 MG TABLET PO (21:54)
--- NOTE | 2023-06-06 22:08 | PC.NURSE ---
pt discharge by Pa in triage
== END 2023-06-06 22:09 | disposition home or self-care (01) ==
PROVIDERS: Emergency Provider Student in an Organized Health Care Education/Training Program; PCP General Practice
DX: M25.511 Pain in right shoulder (principal); M54.2 Cervicalgia; R51.9 Headache, unspecified; Z79.899 Other long term (current) drug therapy; F17.210 Nicotine dependence, cigarettes, uncomplicated; Z71.6 Tobacco abuse counseling
CPT/HCPCS: 73030; 99283

== ENCOUNTER 2023-07-08 10:53 | Outpatient (REF) | payer MEDICAID, SELFPAY ==
[2023-07-08 14:24] LABS: Alanine Aminotransferase 17 U/L (0-40); Albumin Level 4.1 g/dL (3.5-5.0); Alkaline Phosphatase 77 U/L (39-117); Anion Gap 16 (12-20); Aspartate Amino Transferase 16 U/L (5-37); Bilirubin Total 0.3 mg/dL (0.0-1.0); Blood Urea Nitrogen 11 mg/dL (9-16); Calcium 9.9 mg/dL (8.4-10.2); Carbon Dioxide 19 mmol/L (22-29); Chloride 104 mmol/L (96-108); Estimated Glomerular Filt Rate > 60; Glucose Random 448 mg/dL (60-115); Magnesium 1.7 mg/dL (1.6-2.6); Phosphorus 3.8 mg/dL (2.7-4.5); Potassium 4.2 mmol/L (3.3-5.1); Sodium 135 mmol/L (135-145); Total Protein 7.2 g/dL (6.5-8.0)
== END 2023-07-08 10:54 | disposition home or self-care (01) ==
LOC: HO.HHCL 10:53
PROVIDERS: Visit Provider General Practice
DX: F50.81 Binge eating disorder (principal)
CPT/HCPCS: 80053; 80307; 81001; 83735; 84100; 85025

== ENCOUNTER 2023-07-19 09:04 | Emergency (ER) | payer MEDICAID, SELFPAY ==
--- NOTE | ~2023-07-19 | XR_ITS ---
EXAMINATION: XR CHEST CLINICAL INFORMATION: Cough. COMPARISON: Chest 04/11/2023 TECHNIQUE: Frontal view of the chest was obtained. FINDINGS: No significant abnormality is noted involving the heart, lungs, mediastinum, bony thorax or soft tissues. XR/XR chest 1V IMPRESSION: Unremarkable chest examination.
[2023-07-19 09:10] VITALS: BP 122/86; PULSE 100; O2SAT 97
[2023-07-19 09:14] VITALS: BP 120/73; PULSE 94; RESP 18; TEMP 36.8; O2SAT 96; BMI 56.6
--- NOTE | 2023-07-19 09:31 | ED.URI ---
HPI - URI/Sore Throat General Chief Complaint: Upper Respiratory Symptoms Stated Complaint: DIZZY,NAUSEA X3 DAYS Time Seen by Provider: 07/19/23 09:13 Source: patient and EMS Mode of arrival: EMS Limitations: no limitations History of Present Illness HPI Narrative: A 23-year-old male came in by ambulance for evaluation of generalized body ache, runny nose, coughing, generalized joint pain, nausea. No fever, no chills, no exposure to sick contacts, no recent travel. Related Data Home Medications Medication Instructions Recorded Confirmed divalproex 500 mg tablet,delayed 500 mg PO DAILY 08/14/22 03/12/23 release dulaglutide 0.75 mg/0.5 mL 4.5 mg subcut QWEEK 08/14/22 03/12/23 subcutaneous pen injector (Trulicity) insulin lispro 100 unit/mL 1 sliding scale dose subcut 08/14/22 03/12/23 subcutaneous pen (Humalog Tempo BID-QID PRN Hyperglycemia Pen (U-100) Insulin) divalproex 500 mg tablet,delayed 1,000 mg PO BEDTIME 02/19/23 03/12/23 release budesonide-formoterol HFA 80 2 puff inhalation BID 03/12/23 03/12/23 mcg-4.5 mcg/actuation aerosol inhaler (Symbicort) bupropion HCl 150 mg 24 hr tablet, 150 mg PO QAM depressive disorder 03/12/23 03/12/23 extended release fenofibrate micronized 43 mg 43 mg PO DAILY 03/12/23 03/12/23 capsule haloperidol 10 mg tablet 10 mg PO BEDTIME 03/12/23 03/12/23 hydroxyzine HCl 50 mg tablet 50 mg PO TID PRN panic attack 03/12/23 03/12/23 insulin degludec 200 unit/mL (3 160 unit subcut DAILY 03/12/23 03/12/23 mL) subcutaneous pen (Tresiba FlexTouch U-200 insulin) lorazepam 1 mg tablet 1 mg PO BID PRN Anxiety 03/12/23 03/12/23 meloxicam 7.5 mg tablet 7.5 mg PO QAM 03/12/23 03/12/23 metformin 500 mg tablet,extended 1,000 mg PO BID 03/12/23 03/12/23 release 24 hr paliperidone palmitate 234 mg/1.5 234 mg IM QMONTH 03/12/23 03/12/23 mL intramuscular syringe (Invega Sustenna) prazosin 1 mg capsule 2 mg PO BEDTIME nightmares 03/12/23 03/12/23 rosuvastatin 20 mg tablet 20 mg PO DAILY 03/12/23 03/12/23 trazodone 150 mg tablet 150 mg PO BEDTIME PRN Insomnia 03/12/23 03/12/23 Previous Rx's Medication Instructions Recorded aluminum-mag hydroxide-simethicone 5 ml PO 5XD PRN indigestion #3,000 04/11/23 200 mg-200 mg-20 mg/5 mL oral susp mL (Maalox Advanced) cyclobenzaprine 5 mg tablet 5 mg PO TID PRN muscle spasm 7 06/06/23 days #21 tabs Allergies Allergy/AdvReac Type Severity Reaction Status Date / Time No Known Allergies Allergy Verified 04/11/23 14:06 [No Known Allergies*] Review of Systems Review of Systems: All other systems are reviewed and are negative Constitutional: Reports as per HPI and Reports no additional constitutional complaints Eyes: Reports as per HPI and Reports no additional eye complaints Reports system reviewed and no additional complaints, except as documented Cardiovascular: Reports as per HPI and Reports no additional cardiovascular complaints Respiratory: Reports as per HPI and Reports no additional respiratory complaints Gastrointestinal: Reports as per HPI and Reports no additional gastrointestinal complaints Genitourinary: Reports no additional female genitourinary complaints Musculoskeletal: Reports no additional musculoskeletal complaints Skin/Breast: Reports system reviewed and no additional complaints, except as docu Psychiatric: Reports no additional psychiatric complaints Endocrine: Reports no additional endocrine complaints Hematologic/Lymphatic: Reports no additional hematologic/lymphatic complaints Allergic/Immunologic: Reports no additional allergic/immunologic complaints Reports system reviewed and no additional complaints, except as documented and Reports Abnormal speech present PMFSH Past Medical History Onset Date is defined in the Problem List Problems that require an onset date and time if occurred within 24 hrs of arrival to the ED Aortic Dissection and Rupture; Neurologic impairment; Cardiopulmonary Arrest; Endotracheal Intubation; Insertion or Replacement of Mechanical Circulatory Assist Device Medical History Hyperglycemia 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 Diabetes type 2, uncontrolled Bipolar disorder with psychotic features PTSD (post-traumatic stress disorder) Concussion Asthma Depression Depression Bipolar disorder Anxiety Diabetes mellitus, type 2 Social History Social History Household Members: Family Household Members Other:: mom and sister Housing: Apartment Do you presently have visiting nurse or other home services: No Alcohol intake: current Alcohol intake frequency: holidays/special occasions only Alcohol type: beer, wine and hard liquor Patient Tobacco Use Status: Current everyday Tobacco user Tobacco use type: Cigarette and Smokeless Tobacco Cigarette Packs Per Day: 3 Cigarettes Per Day: 60.0 Years Smoked: 4 years e-Cigarette/Vaping Use: Currently Using Second Hand Smoke Exposure: Yes Substance Use Type: Caffiene Advance Directives: No Advance Directives Information Provided: No service: No Current occupational status: disabled 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 Blood pressure elevated. Heart rate normal. Respiratory rate normal. Temperature normal. Oxygen saturation normal. Appearance: Alert. Oriented X3. No acute distress. Head: Normal external exam. Normocephalic. Atraumatic. No Pablo signs noted. No raccoon eyes noted Eyes: PERRLA. EOMI. Conjunctiva and sclera normal. Eyelids normal. ENT: TM's Normal. Pharynx normal. Uvula midline. Moist mucous membranes. No trismus noted. No drooling noted. No muffled voice noted. Neck: Normal inspection. Neck supple. FROM. No adenopathy. Thyroid Normal. No meningeal signs. No neck mass noted. CVS: Normal heart rate and rhythm. Heart sound normal. No murmurs noted. Pulses normal throughout. Respiratory: No respiratory distress. Painless inspiration. Breath sounds normal. No wheezes/rales/rhonchi noted. Chest nontender. No accessory muscle usage noted or decreased air movement noted. Abdomen: Soft and nontender. Bowel sounds normal in all 4 quadrants. No distention noted. No organomegaly noted. No visible injury noted. Back: No CVA tenderness. Full range of motion noted. Skin: Skin warm and dry. Normal skin color. Normal skin turgor. No rashes/lesions/lacerations noted. Extremities: No lower extremity edema. Extremities exhibit normal range of motion. Extremities nontender. Neuro: Oriented X 3. Cranial nerve exam: II-XII are grossly intact No motor deficit. No sensory deficit. Reflexes normal. Course Reevaluation(s) Reevaluation #1: Patient is positive for COVID 19 which would explain patient's symptoms, vital signs stable with O2 sat 97%, patient was instructed to use face mask, frequent hand washing, keep social distancing and self quarantine until symptoms improve. Time: 10:56 Medications Administered Discontinued Medications Generic Name Dose Route Start Last Admin Trade Name Freq PRN Reason Stop Dose Admin Ibuprofen 800 mg 07/19/23 09:16 07/19/23 09:34 Ibuprofen 800 Mg Tablet PO 07/19/23 09:17 800 mg ONCE ONE Administration Medical Decision Making Differential Diagnosis Differential Diagnoses: The differential diagnosis associated with the presentation includes (Strep pharyngitis, COVID-19, RSV, influenza, pneumonia, pneumothorax.) Admission/Observation Consideration of admission/observation: Escalation of care including admission/observation considered Lab Data MDM Lab Attestation statement: I reviewed the patient's lab results. Labs: Lab Results 07/19/23 07/19/23 Range/Units 09:35 09:38 POC Glucose 258 H (60-115) mg/dL Influenza Type A (PCR) NEGATIVE (Negative) Influenza Type B (PCR) NEGATIVE (Negative) RSV RNA Qual (PCR) NEGATIVE (Negative) SARS-CoV-2 RNA (RT-PCR) POSITIVE A (Negative) S. pyogenes GrpA LUCHO Negative (Negative) Independent Interpretation I performed an independent interpretation of an: Plain X-Ray (Chest: Unremarkable chest examination.) Radiology Impression Discussion of test interpretation with radiology: I have reviewed the radiologist's reading. Discharge Plan Discharge Clinical Impression: COVID-19 virus infection Patient Disposition: Home, Self-Care Instructions: COVID-19 (Coronavirus Disease 2019) (ED) Additional Instructions: Take [id number] ibuprofen 200 mg tablet if needed every 6 hours, wear a face mask at all times, frequent hand washing, social distancing, self quarantine until symptoms resolve Prescriptions: No Action divalproex 500 mg tablet,delayed release (DR/EC) 500 mg PO DAILY insulin lispro [Humalog Tempo Pen(U-100)Insuln] 100 unit/mL insulin pen 1 sliding scale dose subcut BID-QID PRN (Reason: Hyperglycemia) Trulicity 0.75 mg/0.5 mL pen injector 4.5 mg subcut QWEEK divalproex 500 mg tablet,delayed release (DR/EC) 1,000 mg PO BEDTIME prazosin 1 mg capsule 2 mg PO BEDTIME bupropion HCl 150 mg tablet extended release 24 hr 150 mg PO QAM Invega Sustenna 234 mg/1.5 mL syringe 234 mg IM QMONTH haloperidol 10 mg tablet 10 mg PO BEDTIME lorazepam 1 mg tablet 1 mg PO BID PRN (Reason: Anxiety) meloxicam 7.5 mg tablet 7.5 mg PO QAM insulin degludec [Tresiba FlexTouch U-200] 200 unit/mL (3 mL) insulin pen 160 unit subcut DAILY hydroxyzine HCl 50 mg tablet 50 mg PO TID PRN (Reason: panic attack) trazodone 150 mg tablet 150 mg PO BEDTIME PRN (Reason: Insomnia) metformin 500 mg tablet extended release 24 hr 1,000 mg PO BID rosuvastatin 20 mg tablet 20 mg PO DAILY fenofibrate micronized 43 mg capsule 43 mg PO DAILY budesonide-formoterol [Symbicort] 80-4.5 mcg/actuation HFA aerosol inhaler 2 puff INHALATION BID alum-mag hydroxide-simeth [Maalox Advanced] 200-200-20 mg/5 mL suspension 5 ml PO 5XD PRN (Reason: indigestion) Qty: 3000 0RF cyclobenzaprine 5 mg tablet 5 mg PO TID PRN (Reason: muscle spasm) 7 Days Qty: 21 0RF Referrals: Gricel Daniel MD [Primary Care Provider] -
[2023-07-19] MEDS: Ibuprofen 800 MG TABLET PO (09:34)
[2023-07-19 09:43] LABS: Glucose, Whole Blood 258 mg/dL (60-115)
[2023-07-19 10:08] LABS: IDNOW Serial# 08D9AD1C; Strep A Nucleic Acid Negative (Negative)
[2023-07-19 10:25] LABS: Influenza A PCR NEGATIVE (Negative); Influenza B PCR NEGATIVE (Negative); Resp Syncy Virus RNA Qual PCR NEGATIVE (Negative); SARS COV2 PCR INHOUSE POSITIVE (Negative)
[2023-07-19 10:47] VITALS: O2SAT 97
[2023-07-19 11:13] VITALS: BP 144/78; PULSE 87; RESP 18; O2SAT 98
== END 2023-07-19 11:16 | disposition home or self-care (01) ==
PROVIDERS: Emergency Provider Emergency Medicine; PCP General Practice
DX: U07.1 COVID-19 (principal); E11.9 Type 2 diabetes mellitus without complications; Z79.4 Long term (current) use of insulin; Z79.85 Long-term (current) use of injectable non-insulin antidiabetic drugs; Z79.84 Long term (current) use of oral hypoglycemic drugs; Z79.899 Other long term (current) drug therapy; F17.210 Nicotine dependence, cigarettes, uncomplicated
CPT/HCPCS: 0241U; 71045; 82947; 87651; 99283; 99284

== ENCOUNTER 2023-12-14 10:16 | Outpatient (REF) | payer MEDICAID, SELFPAY ==
--- NOTE | ~2023-12-14 | XR_ITS ---
EXAMINATION: XR LUMBOSACRAL SPINE WITH OBLIQUES CLINICAL INFORMATION: Pain after fall, lower spine and tailbone pain. Patient states pain for 2 to 3 years. Technologist states imaging was difficult due to body habitus, best possible images taken COMPARISON: Right hip and pelvis of 04/03/2023. TECHNIQUE: 7 views of the lumbar spine. FINDINGS: Bilateral sacroiliac joints are maintained. Limited visualization due to bowel gas and body habitus. Lumbar disc space heights and alignment are preserved. There is slight anterior loss of height of L1 vertebral body of indeterminate age. XR/XR lumbar spine 4V min IMPRESSION: Slight anterior loss of height of L1 vertebral body of indeterminate age. Correlation with clinical exam recommended.
[2023-12-14 11:19] LABS: MANUAL DIFF FLAG NO
[2023-12-14 11:38] LABS: Basophils Absolute Auto 0.1 X10*3/uL (0.0-0.2); Basophils Percent Auto 0.5 % (0-2); Eosinophils Absolute Auto 0.2 X10*3/uL (0.0-0.4); Hematocrit 44.9 % (42.0-52.0); Hemoglobin 15.9 g/dl (14.0-18.0); Imm Gran Abs Auto 0.04 X10*3/uL (0.00-0.03); Imm Gran Pct Auto 0.4 % (0.0-0.4); Lymphocytes Absolute Auto 3.3 X10*3/uL (1.2-4.9); Lymphocytes Percent Auto 35.9 % (20-40); Mean Corpuscular HGB Conc 35.4 g/dl (31.0-36.0); Mean Corpuscular Hemoglobin 29.9 pg (27.0-33.0); Mean Corpuscular Volume 84.6 fL (80.0-98.0); Mean Platelet Volume 10.8 fL (9.4-12.4); Monocytes Absolute Auto 0.9 X10*3/uL (0.1-1.2); Monocytes Percent Auto 9.7 % (2-11); Neutrophils Absolute Auto 4.7 x10*3/uL (2.0-8.3); Neutrophils Percent Auto 51.5 % (45-73); Platelet Count 229 X10*3/uL (160-400); Red Blood Count 5.31 X10*6/uL (4.60-5.80); Red Cell Distribution Width 11.9 % (11.0-16.0); White Blood Count 9.2 X10*3/uL (4.8-10.8)
[2023-12-14 11:56] LABS: Alanine Aminotransferase 26 U/L (0-40); Albumin Level 4.1 g/dL (3.5-5.0); Alkaline Phosphatase 68 U/L (39-117); Anion Gap 11 (12-20); Aspartate Amino Transferase 14 U/L (5-37); Bilirubin Total 0.5 mg/dL (0.0-1.0); Blood Urea Nitrogen 9 mg/dL (9-16); Calcium 9.2 mg/dL (8.4-10.2); Carbon Dioxide 24 mmol/L (22-29); Chloride 107 mmol/L (96-108); Cholesterol 126 mg/dL (<200); Estimated Glomerular Filt Rate > 60; Glucose Random 260 mg/dL (60-115); HDL Cholesterol 31 mg/dL (>40); LDL Cholesterol Calculated 71 mg/dL (<100); Potassium 3.9 mmol/L (3.3-5.1); Sodium 138 mmol/L (135-145); Triglycerides 121 mg/dL (<150)
[2023-12-14 12:21] LABS: Creatinine Urine 146.46 mg/dL; Microalbum/Creatinine Ratio Ur 24.5 ug/mg cr (<30)
== END 2023-12-14 10:17 | disposition home or self-care (01) ==
LOC: HO.HHCL 10:16
PROVIDERS: Visit Provider General Practice
DX: M54.50 Low back pain, unspecified (principal); E11.65 Type 2 diabetes mellitus with hyperglycemia; Z79.4 Long term (current) use of insulin; G89.29 Other chronic pain
CPT/HCPCS: 36415; 72110; 80053; 80061; 82043; 82570; 85025

== ENCOUNTER 2024-08-23 11:11 | Outpatient (REF) | payer MEDICAID, SELFPAY ==
--- OUTSIDE RECORDS SUMMARY | 2024-08-23 12:32 | XMS_ITS | Encounter Summary ---
Author Organization [employer] Address [address] [place] [address] 7t [place] [address] Care Team Providers Care Dehairing Machine Tender Name Role Phone Gricel Daniel MD Primary Care Provider [phone] Kalina Coyle PharmD Unavailable Reason for Visit * Reason Onset Date Comments PT1 09/27/2022 Encounter Details Date Type Department Care Team ([facility] st Contact Info) Description 09/27/2022 Telephone [facility] MEDICINE [address] [place], [place] [phone] Gricel Daniel MD [address] [place], [place] [phone] PT1 Social History Tobacco Use Types Packs/Day Years Used Date Smoking Tobacco: Every Day Cigarettes Sex and Gender Information Value Date Recorded Sex Assigned at Male 05/03/2022 10:16 AM EDT Legal Sex Male 10:16 AM EDT Gender Identity Gender Queer 10/06/2023 1:21 PM EDT Sexual Orientation Pansexual 10/06/2023 1: 21 PM EDT COVID-19 Exposure Response Date Recorded In the last 10 days, have yo u been in contact with someone who was confirmed or suspected to have Coronavirus/COVID-19? No / Unsure 09/06/2022 8:31 AM EST documented as of this encounter Miscellaneous Notes * Telephone Encounter - [place] - 09/27/2022 8:59 AM EDT Tc from mother requesting a PT1 PT1 Name of facility: [facility] Specialty: Diabetes Appt Location: [address] [place] [address] Date: October 05, 2022 Time: 12:45 pm fax: n/a Phone: n/a wheelchair: n/a Dish Person: Yes documented in this encounter Plan of Treatment Not on file documented as of this encounter Visit Diagnoses Not on filedocumented in this encounter Care Teams Dehairing Machine Tender Relationship Specialty Start Date End Date Gricel Daniel MD [address] [place] [address] PCP - General Family Medicine 08/20/20 Kalina Coyle PharmD [address] [place] [address] Pharmacist Internal Medicine 12/08/23 Layla Hubbard Welder Machine Operator 06/15/23 09/14/23 documented as of this encounter
--- OUTSIDE RECORDS SUMMARY | 2024-08-23 12:32 | XMS_ITS | Encounter Summary ---
Author Organization [employer] Address [address] [facility] 7t [place] [address] Care Team Providers Care Deicer Repairer Name Role Phone Gricel Daniel MD Primary Care Provider [phone] Kalina Coyle PharmD Unavailable [phone] Reason for Visit * Reason Comments Med Refill Encounter Details Date Type Department Care Team ([facility] st Contact Info) Description 10/13/2023 Refill [facility] MEDICINE [address] [place], [place] [phone] Gricel Daniel MD [address] [place], [place] [phone] Type 2 diabetes mellitus with obesity ([facility]/HCC) ([facility]) Social History Tobacco Use Types Packs/Day Years Used Date Smoking Tobacco: Every Day Cigarettes Passive Smoke Exposure: Current Smokeless Tobacco: Never Alcohol Use Standard Drinks/Week Comments Never 0 (1 standard drink = 0.6 oz pur e alcohol) Depression Answer Date Recorded Patient Health Questionnaire-9 Score 5 12/17/2022 Housing Stability Answer Date Recorded What is your housing situation today? I have queta serra 04/20/[address] you li ve. Do you have problems with any of the following? None of the above 04/20/2023 Food Insecurity Answer Date Recorded Within the past 12 months, y ou worried that your food would run out before you got money to buy more: Never True 04/20/2023 Within the past 12 months,th e food you bought just didn't last and you didn't have enough money to get more: Never True Transportation Answer Date Recorded In the past 12 months, has l ack of transportation kept you from medical appts, meetings, work or from getting things needed for daily living? No 06/07/2023 Utilities Answer Date Recorded In the past 12 months, has t he electric, gas, oil or water company threatened to shut off services in your home? No 04/20/2023 Depression Answer Date Recorded Patient Health Questionnaire-2 Score 0 07/08/2023 Sex and Gender Information Value Date Recorded Sex Assigned at Male 05/03/2022 10:16 AM EDT Legal Sex Male 10:16 AM EDT Gender Identity Gender Queer 10/06/2023 1:21 PM EDT Sexual Orientation Pansexual 10/06/2023 1: 21 PM EDT documented as of this encounter Plan of Treatment Not on file documented as of this encounter Visit Diagnoses Diagnosis Type 2 diabetes mellitus with obesity (CMS/HCC) (CMS/HCC) documented in this encounter Additional Health Concerns Assessment Noted Time PHQ-9 Depression Total Score: 5 12/18/19 23 2:41 PM EDT documented as of this encounter Care Teams Deicer Repairer Relationship Specialty Start Date End Date Gricel Daniel MD [address] [place] [address] PCP - General Family Medicine 08/20/20 Kalina Coyle PharmD [address] [place] [address] Pharmacist Internal Medicine 12/08/23 documented as of this encounter
--- OUTSIDE RECORDS SUMMARY | 2024-08-23 12:32 | XMS_ITS | Encounter Summary ---
Author Organization [employer] Address [address] [facility] 7t [place] [address] Care Team Providers Care Content Checker Name Role Phone Gricel Daniel MD Primary Care Provider Kalina Coyle PharmD Unavailable [phone] Encounter Details Date Type Department Care Team (Late st Contact Info) Description 09/19/2023 Orders Only [facility] MEDICINE [address] [place], [place] [phone] Gricel Daniel MD [address] [place], [place] [phone] Chronic midline low back pain without sciatica (Primary Dx) Social History Tobacco Use Types Packs/Day Years [...] on file documented as of this encounter Procedures Procedure Name Priority Date/Time Associated Diagnosis Comments XR LUMBAR SPINE COMPLETE 4+ VIEWS Routine 12/14/2023 11:01 AM EDT Chronic midline low back pain without sciatica documented in this encounter Results * XR Lumbar Spine Complete 4+ Views (12/14/2023 11:01 AM EDT) Anatomical Region Laterality Modality Spine, L-spine Radiographic Adelina ging 12/14/2023 11:0 1 AM EDT Narrative 12/27/2023 9:43 AM EDT ? [facility] ?[address] ?[place] [address] ?XRay Report ? Signed ? Patient: Huseyin,Williams L ?MR#: [id number] ?? 13 ? : 2000 ?Acct:[id number] ? Age/Sex: 23 / M ?ADM Date: 12/14/23 ? Loc: HO.[facility] ? Attending Dr: Gricel Daniel MD ? Ordering Physician: Gricel Daniel ?? Date of Service: 12/14/23 ?? Procedure(s): XR lumbar spine 4V min ?? Accession Number(s): [id number] ? cc: Gricel Daniel ? EXAMINATION: ?? XR LUMBOSACRAL SPINE WITH OBLIQUES ? CLINICAL INFORMATION: ?? Pain after fall, lower spine and tailbone pain. Patient states pain for ?? 2 to 3 years. Technologist states imaging was difficult due to body ?? habitus, best possible images taken ? COMPARISON: ?? Right hip and pelvis of 04/03/2023. ? TECHNIQUE: ?? 7 views of the lumbar spine. ? FINDINGS: ?? Bilateral sacroiliac joints are maintained. Limited visualization due ?? to bowel gas and body habitus. ? Lumbar disc space heights and alignment are preserved. There is slight ?? anterior loss of height of L1 vertebral body of indeterminate age. ? XR/XR lumbar spine 4V min ?? IMPRESSION: ?? Slight anterior loss of height of L1 vertebral body of indeterminate ?? age. Correlation with clinical exam recommended. ? Dictated By: ?Gracie Lawrence MD ? Signed By: ?<Electronically signed by Gracie Lawrence MD in OV> ? 12/27/23 0940 ? DD/ 1101 ? TD/TT: ? Senior Mainframe Developer: ? Procedure Note Donherbter, Image - 12/27/2023 [place] [address] XRay Report Signed Patient: Williams Fontanez LMR#: [id number] 13 : 2000Acct:[id number] Age/Sex: 23 / MADM Date: 12/14/23 Loc: HO.[facility] Attending Dr: rGicel Daniel MD Ordering Physician: Gricel Daniel Date of Service: 12/14/23 Procedure(s): XR lumbar spine 4V min Accession Number(s): [id number] cc: Gricel Daniel EXAMINATION: XR LUMBOSACRAL SPINE WITH OBLIQUES CLINICAL INFORMATION: Pain after fall, lower spine and tailbone pain. Patient states pain for 2 to 3 years. Technologist states imaging was difficult due to body habitus, best possible images taken COMPARISON: Right hip and pelvis of 04/03/2023. TECHNIQUE: 7 views of the lumbar spine. FINDINGS: Bilateral sacroiliac joints are maintained. Limited visualization due to bowel gas and body habitus. Lumbar disc space heights and alignment are preserved. There is slight anterior loss of height of L1 vertebral body of indeterminate age. XR/XR lumbar spine 4V min IMPRESSION: Slight anterior loss of height of L1 vertebral body of indeterminate age. Correlation with clinical exam recommended. Dictated By: Gracie Lawrence MD Signed By: <Electronically signed by Gracie Lawrence MD in OV> 12/27/23 0940 DD/ 1101 TD/TT: Senior Mainframe Developer: Gricel Daniel MD IMG XR PROCEDURES Edited Resul t - Final documented in this encounter Visit Diagnoses Diagnosis Chronic midline low back pain without sciatica- Primary documented in this encounter Additional Health Concerns Assessment Noted Time PHQ-9 Depression Total Score: 5 12/18/19 23 2:41 PM EDT documented as of this encounter Care Teams Content Checker Relationship Specialty Start Date End Date Gricel Daniel MD [address] [place] [address] PCP - General Family Medicine 08/20/20 Kalina Coyle PharmD [address] [place] [address] Pharmacist Internal Medicine 12/08/23 documented as of this encounter
--- OUTSIDE RECORDS SUMMARY | 2024-08-23 12:32 | XMS_ITS | Encounter Summary ---
Author Organization [employer] Address [address] [facility] 7t [place] [address] Care Team Providers Care Social Work Specialist Name Role Phone Gricel Daniel MD Primary Care Provider [phone] Kalina Coyle PharmD Unavailable Encounter Details Date Type Department Care Team (Late st Contact Info) Description 07/08/2023 Telephone [facility] MEDICINE [address] [place], [place] [phone] Gricel Daniel MD [address] [place], [place] [phone] Social History Tobacco Use Types Packs/Day Years [...] PM EDT documented as of this encounter Miscellaneous Notes * Telephone Encounter - Rupali Cade LPN - 07/08/2023 2:26 PM EST Triage call placed to patient who is in the community at time of call. Is not having any symptoms of hyperglycemia and reports that he will take his insulin when he gets home . Patient is alert and verbal and expressed knowledge of information of elevated BG being reported to him. Advised that PCPwill be updated to follow with patient. Patient in agreement with plan. Protocol Used: Diabetes - High Blood Sugar (Adult) Protocol-Based Disposition: Discuss with PCP and Callback by Nurse within 1 Hour Video visit not offered Positive Triage Question: * Blood glucose > 400 mg/dL (22.2 mmol/L) * All higher-acuity triage questions were negative Care Advice Discussed: * Continue Insulin * Measure and Record Your Blood Glucose * Daily Blood Glucose Goals * Reasons To Call Back - You become worse documented in this encounter Plan of Treatment Not on file documented as of this encounter Visit Diagnoses Not on filedocumented in this encounter Additional Health Concerns Assessment Noted Time PHQ-9 Depression Total Score: 5 12/18/19 23 2:41 PM EDT documented as of this encounter Care Teams Social Work Specialist Relationship Specialty Start Date End Date Gricel Daniel MD [address] [place] [address] PCP - General Family Medicine 08/20/20 Kalina Coyle PharmD [address] [place] [address] Pharmacist Internal Medicine 12/08/23 Layla Hubbard Cotton Dispatcher 06/15/23 09/14/23 documented as of this encounter
--- OUTSIDE RECORDS SUMMARY | 2024-08-23 12:32 | XMS_ITS | Encounter Summary ---
Author Organization [employer] Address [address] [facility] 7t [place] [address] Care Team Providers Care Leather Tacker Name Role Phone Gricel Daniel MD Primary Care Provider [phone] Kalina Coyle PharmD Unavailable [phone] Encounter Details Date Type Department Care Team (Late st Contact Info) Description 07/08/2023 Telephone [facility] MEDICINE [address] [place], [place] [phone] Gricel Daniel MD [address] [place], [place] [phone] Social History Tobacco Use Types Packs/Day Years [...] Encounter - Rupali Cade LPN - 07/08/2023 2:22 PM EST Critical Result lab call received at this time. Patient with noted glucose resulted today at 448. Team tasked to update PCP. Will call to triage patient now. documented in this encounter Plan of Treatment Not on file documented as of this encounter Visit Diagnoses Not on filedocumented in this encounter Additional Health Concerns Assessment Noted Time PHQ-9 Depression Total Score: 5 12/18/19 23 2:41 PM EDT documented as of this encounter Care Teams Leather Tacker Relationship Specialty Start Date End Date Gricel Daniel MD [address] [place] [address] PCP - General Family Medicine 08/20/20 Kalina Coyle PharmD [address] [place] [address] Pharmacist Internal Medicine 12/08/23 Layla Hubbard Hob Grinder 06/15/23 09/14/23 documented as of this encounter
--- OUTSIDE RECORDS SUMMARY | 2024-08-23 12:32 | XMS_ITS | Encounter Summary ---
Author Organization [employer] Address [address] [facility] 7t [place] [address] Care Team Providers Care Electroencephalograph Technologist Name Role Phone Gricel Daniel MD Primary Care Provider [phone] Kalina Coyle PharmD Unavailable [phone] Reason for Visit * Reason Comments Med Refill Encounter Details Date Type Department Care Team ([facility] st Contact Info) Description 10/05/2023 Refill [facility] MEDICINE 230 [place], [place] [phone] Sammi Cortez MD [address] [place], [place] [phone] Type 2 diabetes mellitus with obesity ([facility]/HCC) ([facility]) Social History Tobacco Use Types Packs/Day Years Used Date Smoking Tobacco: Every Day Cigarettes Passive Smoke Exposure: Current Smokeless Tobacco: Never Alcohol Use Standard Drinks/Week Comments Never 0 (1 standard drink = 0.6 oz pur e alcohol) Depression Answer Date Recorded Patient Health Questionnaire-9 Score 5 12/17/2022 Housing Stability Answer Date Recorded What is your housing situation today? I have quetaleopoldo serra 04/20/[address] you [...] documented as of this encounter Care Teams Electroencephalograph Technologist Relationship Specialty Start Date End Date Gricel Daniel MD [address] [place] [address] PCP - General Family Medicine 08/20/20 Kalina Coyle PharmD [address] [place] [address] Pharmacist Internal Medicine 12/08/23 documented as of this encounter
--- OUTSIDE RECORDS SUMMARY | 2024-08-23 12:32 | XMS_ITS | Encounter Summary ---
Author Organization [employer] Address [address] [facility] 7t [place] [address] Care Team Providers Care Probation Manager Name Role Phone Gricel Daniel MD Primary Care Provider [phone] Kalina Coyle PharmD Unavailable [phone] Reason for Visit * Reason Onset Date Comments Med Refill 07/24/2024 Encounter Details Date Type Department Care Team ([facility] st Contact Info) Description 07/24/2024 Refill [facility] [address] [place] [address] Gricel Daniel MD [address] [place] [address] Type 2 diabetes mellitus with hypoglycemia without coma, with long-term current use of insulin ([facility]) Social History Tobacco Use Types Packs/Day Years Used Date Smoking Tobacco: Every Day Cigarettes Passive Smoke Exposure: Current Smokeless Tobacco: Never Alcohol Use Standard Drinks/Week Comments Never 0 (1 standard drink = 0.6 oz pur e alcohol) Depression Answer Date Recorded Patient Health Questionnaire-9 Score 5 12/17/2022 Housing Stability Answer Date Recorded What is your housing situation today? I have queta sing 04/20/[address] you li [...] enough money to get more: Never True 10/ Transportation Answer Date Recorded In the past [...] on file documented as of this encounter Goals Goal Patient Goal Type Associated Problems Recent Progress Patient-Stated? Author Drink less soda, juice, and other sugary beverages Diet No Kalina Coyle, PharmD Hemoglobin A1c < 7 Result Component 13.4(03/21/20 24 2:35 PM EDT) No YosiiaKingstonKalina, PharmD Record your blood sugar as directed Result Component No YosiiaKingstonKalina, PharmD documented as of this encounter Visit Diagnoses Diagnosis Type 2 diabetes mellitus with hypoglycemia without coma, with long-term current use of insulin ([facility]) documented in this encounter Additional Health Concerns Assessment Noted Time PHQ-9 Depression Total Score: 5 12/18/19 23 2:41 PM EDT documented as of this encounter Care Teams Probation Manager Relationship Specialty Start Date End Date Gricel Daniel MD [address] [place] [address] PCP - General Family Medicine 08/20/20 YosiiaKalina, PharmD [address] [place] [address] Pharmacist Internal Medicine 12/08/23 documented as of this encounter
--- OUTSIDE RECORDS SUMMARY | 2024-08-23 12:32 | XMS_ITS | Encounter Summary ---
Author Organization [employer] Address [address] [facility] 7t [place] [address] Care Team Providers Care Arc Welding Machine Operator Name Role Phone Gricel Daniel MD Primary Care Provider [phone] Kalina Coyle PharmD Unavailable [phone] Reason for Visit * Reason Comments Med Refill Encounter Details Date Type Department Care Team ([facility] st Contact Info) Description 06/11/2024 Refill [facility] MEDICINE [address] [place], [place] [phone] Kalina Coyle, PharmD [address] [place] [address] Type 2 diabetes mellitus with obesity ([facility]/HCC) ([facility]) Social History Tobacco Use Types Packs/Day [...] juice, and other sugary beverages Diet No Puia, Kalina, PharmD Hemoglobin A1c < 7 Result Component 13.4(03/21/20 24 2:35 PM EDT) No Puia, Kalina, PharmD Record your blood sugar as directed Result Component No Puia, Kalina, PharmD documented as of this encounter Visit Diagnoses Diagnosis Type 2 diabetes mellitus with obesity (CMS/HCC) ([facility]/HCC) documented in this encounter Additional Health Concerns Assessment Noted Time PHQ-9 Depression Total Score: 5 12/18/19 23 2:41 PM EDT documented as of this encounter Care Teams Arc Welding Machine Operator Relationship Specialty Start Date End Date Gricel Daniel MD [address] [place] [address] PCP - General Family Medicine 08/20/20 Puia, Kalina, PharmD [address] [place] [address] Pharmacist Internal Medicine 12/08/23 documented as of this encounter
--- OUTSIDE RECORDS SUMMARY | 2024-08-23 12:33 | XMS_ITS | Encounter Summary ---
Author Organization [employer] Address [address] [place] [address] 7t [place] [address] Care Team Providers Care Shampoo Assistant Name Role Phone Gricel Daniel MD Primary Care Provider [phone] Kalina Coyle PharmD Unavailable [phone] Reason for Referral * Consultation (Routine) - Authorized Specialty Diagnoses / Procedures Referred By Contac t Referred To Contact Pharmacy Diagnoses Type 2 diabetes mellitus with obesity (CMS/HCC) ([facility]/HCC) Gricel Daniel MD [address] [place] [address] Phone: tel: fax: Referral ID Status Reason Start Date Expiration Date Visits Requested Visits Authorized [id number] Authorized Consult and Treat 04/12/2024 04/12/2025 6 6 Encounter Details Date Type Department Care Team (Late st Contact Info) Description 04/12/2024 Orders Only [facility] MEDICINE [address] [place], [place] [phone] Gricel Daniel MD [address] [place], [place] [phone] Type 2 diabetes mellitus with obesity (CMS/HCC) (CMS/HCC) (Primary Dx) Social History Tobacco Use Types [...] as of this encounter Plan of Treatment Scheduled Referrals Name Type Priority Associated Diagnoses Orde r Schedule Referral to Pharmacy CDTM Outpatient Referral Routine Type 2 diabetes mellitus with obesity ([facility]/HCC) ([facility]) Ordered: 04/12/2024 documented as of this encounter Goals Goal [...] Type 2 diabetes mellitus with obesity (CMS/HCC) ([facility])- Primary documented in this encounter Additional Health Concerns Assessment Noted Time PHQ-9 Depression Total Score: 5 12/18/19 23 2:41 PM EDT documented as of this encounter Care Teams Shampoo Assistant Relationship Specialty Start Date End Date Gricel Daniel MD [address] [place] [address] PCP - General Family Medicine 08/20/20 Kalina Coyle, Bisi [address] [place] [address] Pharmacist Internal Medicine 12/08/23 documented as of this encounter
--- OUTSIDE RECORDS SUMMARY | 2024-08-23 12:33 | XMS_ITS | Encounter Summary ---
Author Organization [employer] Address [address] [place] [address] 7t [place] [address] Care Team Providers Care Cancer Program Consultant Name Role Phone Gricel Daniel MD Primary Care Provider [phone] Kalina Coyle PharmD Unavailable [phone] Encounter Details Date Type Department Care Team (Late st Contact Info) Description 08/19/2022 Orders Only [facility] MEDICINE 230 [place], [place] [phone] Sammi Cortez MD [address] [place], [place] [phone] Type 2 diabetes mellitus with obesity (CMS/HCC) (Primary Dx) Social History Tobacco Use [...] suspected to have Coronavirus/COVID-19? No / Unsure 08/17/2022 12:26 PM EST documented as of this encounter Plan of Treatment Not on file documented as of this encounter Visit Diagnoses Diagnosis Type 2 diabetes mellitus with obesity (CMS/HCC) (CMS/HCC)- Primary documented in this encounter Care Teams Cancer Program Consultant Relationship Specialty Start Date End Date Gricel Daniel MD [address] [place] [address] PCP - General Family Medicine 08/20/20 Kalina Coyle, Bisi [address] [place] [address] Pharmacist Internal Medicine 12/08/23 Layla Hubbard Speech Pathologist Assistant 06/15/23 09/14/23 documented as of this encounter
--- OUTSIDE RECORDS SUMMARY | 2024-08-23 12:33 | XMS_ITS | Encounter Summary ---
Author Organization [employer] Address [address] [place] [address] Care Team Providers Care Home Health Aid Name Role Phone Gricel Daniel MD Primary Care Provider [phone] Kalina Coyle PharmD Unavailable [phone] Encounter Details Date Type Department Care Team (Late st Contact Info) Description 03/02/2024 Orders Only [facility] MED[facility]INE [address] [place], [place] [phone] Gricel Daniel MD [address] [place], [place] [phone] Muscle spasm (Primary Dx) Social History Tobacco Use Types [...] juice, and other sugary beverages Diet No YosiiaKalina, PharmD Hemoglobin A1c < 7 Result Component 13.4(03/21/20 24 2:35 PM EDT) No Puia Kalina, PharmD Record your blood sugar as directed Result Component No Yosiia Kalina, PharmD documented as of this encounter Visit Diagnoses Diagnosis Muscle spasm- Primary Spasm of muscle documented in this encounter Additional Health Concerns Assessment Noted Time PHQ-9 Depression Total Score: 5 12/18/19 23 2:41 PM EDT documented as of this encounter Care Teams Home Health Aid Relationship Specialty Start Date End Date Gricel Daniel MD [address] [place] [address] PCP - General Family Medicine 08/20/20 Kalina Coyle, PharmD [address] [place] [address] Pharmacist Internal Medicine 12/08/23 documented as of this encounter
--- OUTSIDE RECORDS SUMMARY | 2024-08-23 12:33 | XMS_ITS | Encounter Summary ---
Author Organization [employer] Address [address] [place] [address] [address] [place] [address] Care Team Providers Care Applications System Analyst Name Role Phone Gricel Daniel MD Primary Care Provider [phone] Kalina Coyle PharmD Unavailable [phone] Reason for Referral * Consultation (Routine) - Closed Specialty Diagnoses / Procedures Referred By Contdelbert t Referred To Contact Physical Therapy Diagnoses Low back pain at multiple sites Gricel Daniel MD [address] [place] [address] Phone: tel: fax: Physical Therapy, AT [address] [place] [address] [address] [place] Phone: tel: fax: Referral ID Status Reason Start Date Expiration Date V isits Requested Visits Authorized [id number] Closed Specialty Services Required 03/22/2024 03/22/2025 20 20 Encounter Details Date Type Department Care Team (Late st Contact Info) Description 02/15/2024 Orders Only [facility] MEDICINE [address] [place], [place] [phone] Gricel Daniel MD [address] [place], [place] [phone] Low back pain at multiple sites (Primary Dx); Constipation, unspecified constipation type Social History Tobacco Use Types Packs/Day Years [...] Associated Diagnoses Orde r Schedule Referral to Physical Therapy Outpatient Referral Routine Low back pain at multiple sites Expected: 02/27/2024 (Approximate), Expires: 02/26/2025 documented as of this encounter Goals Goal [...] as of this encounter Visit Diagnoses Diagnosis Low back pain at multiple sites- Primary Constipation, unspecified constipation type documented in this encounter Additional Health Concerns Assessment Noted Time PHQ-9 Depression Total Score: 5 12/18/19 23 2:41 PM EDT documented as of this encounter Care Teams Applications System Analyst Relationship Specialty Start Date End Date Gricel Daniel MD [address] [place] [address] PCP - General Family Medicine 08/20/20 Kalina Coyle PharmD [address] [place] [address] Pharmacist Internal Medicine 12/08/23 documented as of this encounter
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
[2024-08-23 13:48] LABS: Creatinine Urine 35.61 mg/dL
[2024-08-23 16:43] LABS: CT PCR NOT DETECTED (Not Detect.); NG PCR NOT DETECTED (Not Detect.)
== END 2024-08-23 11:12 | disposition home or self-care (01) ==
LOC: HO.HHCL 11:11
PROVIDERS: Visit Provider General Practice
DX: E11.69 Type 2 diabetes mellitus with other specified complication (principal); E66.9 Obesity, unspecified
CPT/HCPCS: 82043; 82570; 87491; 87591

== ENCOUNTER 2024-08-24 09:14 | Outpatient (REF) | payer MEDICAID, SELFPAY ==
--- OUTSIDE RECORDS SUMMARY | 2024-08-24 09:44 | XMS_ITS | Encounter Summary ---
Author Organization [employer] Address [address] [facility] 7t [place] [address] Care Team Providers Care Manager Of Distribution Name Role Phone Gricel Daniel MD Primary Care Provider [phone] Kalina Coyle PharmD Unavailable [phone] Reason for Visit * Reason Comments Med Refill Encounter Details Date Type Department Care Team ([facility] st Contact Info) Description 10/05/2023 Refill [facility] MEDICINE [address] [place], [place] [phone] Sammi Cortez MD [address] [place], [place] [phone] Type 2 diabetes mellitus with obesity ([facility]/HCC) ([facility]) Social History Tobacco Use Types Packs/Day Years [...] documented as of this encounter Care Teams Manager Of Distribution Relationship Specialty Start Date End Date Gricel Daniel MD [address] [place] [address] PCP - General Family Medicine 08/20/20 Kalina Coyle PharmD [address] [place] [address] Pharmacist Internal Medicine 12/08/23 documented as of this encounter
--- OUTSIDE RECORDS SUMMARY | 2024-08-24 09:44 | XMS_ITS | Encounter Summary ---
Author Organization [employer] Address [address] [facility] 7t [place] [address] Care Team Providers Care Coke Drawer Name Role Phone Gricel Daniel MD Primary Care Provider [phone] Kalina Coyle PharmD Unavailable [phone] Encounter Details Date Type Department Care Team (Late st Contact Info) Description 07/08/2023 Telephone [facility] MEDICINE [address] [place], [place] [phone] Gricel Daniel MD [address] [place], [place] [phone] Social History Tobacco Use Types Packs/Day Years [...] documented as of this encounter Care Teams Coke Drawer Relationship Specialty Start Date End Date Gricel Daniel MD [address] [place] [address] PCP - General Family Medicine 08/20/20 Kalina Coyle PharmD [address] [place] [address] Pharmacist Internal Medicine 12/08/23 Layla Hubbard Swedish Masseuse 06/15/23 09/14/23 documented as of this encounter
--- OUTSIDE RECORDS SUMMARY | 2024-08-24 09:44 | XMS_ITS | Encounter Summary ---
Author Organization [employer] Address [address] [facility] 7t [place] [address] Care Team Providers Care Cadd Manager Name Role Phone Gricel Daniel MD Primary Care Provider [phone] Kalina Coyle PharmD Unavailable [phone] Reason for Visit * Reason Comments Med Refill Encounter Details Date Type Department Care Team ([facility] st Contact Info) Description 06/11/2024 Refill [facility] MEDICINE [address] [place], [place] [phone] Kalina Coyle, PharmD [address] [place] [address] Type 2 diabetes mellitus with obesity ([facility]/HCC) ([facility]) Social History Tobacco Use Types Packs/Day [...] documented as of this encounter Care Teams Cadd Manager Relationship Specialty Start Date End Date Gricel Daniel MD [address] [place] [address] PCP - General Family Medicine 08/20/20 Puia, Kalina, PharmD [address] [place] [address] Pharmacist Internal Medicine 12/08/23 documented as of this encounter
--- OUTSIDE RECORDS SUMMARY | 2024-08-24 09:44 | XMS_ITS | Encounter Summary ---
Author Organization [employer] Address [address] [place] [address] 7t [place] [address] Care Team Providers Care Keeler Polygraph Operator Name Role Phone Gricel Daniel MD Primary Care Provider [phone] Kalina Coyle PharmD Unavailable [phone] Reason for Visit * Reason Onset Date Comments PT1 09/27/2022 Encounter Details Date Type Department Care Team ([facility] st Contact Info) Description 09/27/2022 Telephone [facility] MEDICINE [address] [place], [place] [phone] Gricel Daniel MD [address] [place], [place] [phone] PT1 Social History Tobacco Use Types Packs/Day [...] requesting a PT1 PT1 Name of facility: [facility] Specialty: Diabetes Appt Location: [address] [place] [address] Date: October 05, 2022 Time: 12:45 pm fax: n/a Phone: n/a wheelchair: n/a Public Area Supervisor: Yes documented in this encounter Plan of Treatment Not on file documented as of this encounter Visit Diagnoses Not on filedocumented in this encounter Care Teams Keeler Polygraph Operator Relationship Specialty Start Date End Date Gricel Daniel MD [address] [place] [address] PCP - General Family Medicine 08/20/20 Kalina Coyle PharmD [address] [place] [address] Pharmacist Internal Medicine 12/08/23 Layla Hubbard Script Supervisor 06/15/23 09/14/23 documented as of this encounter
--- OUTSIDE RECORDS SUMMARY | 2024-08-24 09:44 | XMS_ITS | Encounter Summary ---
Author Organization [employer] Address [address] [place] [address] 7t [place] [address] Care Team Providers Care Senior Architect Name Role Phone Gricel Daniel MD Primary Care Provider [phone] Kalina Coyle PharmD Unavailable [phone] Encounter Details Date Type Department Care Team (Late st Contact Info) Description 08/19/2022 Orders Only [facility] MEDICINE [address] [place], [place] [phone] Sammi Cortez MD [address] [place], [place] [phone] Type 2 diabetes mellitus with obesity (CMS/HCC) [...] Primary documented in this encounter Care Teams Senior Architect Relationship Specialty Start Date End Date Gricel Daniel MD [address] [place], [place] [phone] PCP - General Family Medicine 08/20/20 Kalina Coyle, Bisi [address] [place] [address] Pharmacist Internal Medicine 12/08/23 Layla Hubbard Calculating Machine Mechanic 06/15/23 09/14/23 documented as of this encounter
--- OUTSIDE RECORDS SUMMARY | 2024-08-24 09:44 | XMS_ITS | Encounter Summary ---
Author Organization [employer] Address [address] [place] [address] 7t [place] [address] Care Team Providers Care Key Sander Name Role Phone Gricel Daniel MD Primary Care Provider [phone] Kalina Coyle PharmD Unavailable [phone] Reason for Referral * Consultation (Routine) - Closed Specialty Diagnoses / Procedures Referred By Contdelbert t Referred To Contact Physical Therapy Diagnoses Low back pain at multiple sites Gricel Daniel MD [address] [place] [address] Phone: tel: fax: Physical Therapy, AT [address] [place] [address] Dr Herrera [place] Phone: tel: fax: Referral ID Status Reason Start Date Expiration Date V isits Requested Visits Authorized [id number] Closed Specialty Services Required 03/22/2024 03/22/2025 20 20 Encounter Details Date Type Department Care Team (Late st Contact Info) Description 02/15/2024 Orders Only [facility] MEDICINE [address] [place], [place] [phone] Gricel Daniel MD [address] [place], [place] [phone] Low back pain at multiple sites (Primary [...] documented as of this encounter Care Teams Key Sander Relationship Specialty Start Date End Date Gricel Daniel MD [address] [place] [address] PCP - General Family Medicine 08/20/20 Kalina Coyle PharmD [address] [place] [address] Pharmacist Internal Medicine 12/08/23 documented as of this encounter
--- OUTSIDE RECORDS SUMMARY | 2024-08-24 09:44 | XMS_ITS | Encounter Summary ---
Author Organization [email or web address] Address [address] [facility] 7t [place] [address] Care Team Providers Care Petroleum Supply Specialist Name Role Phone Gricel Daniel MD Primary Care Provider [phone] Kalina Coyle PharmD Unavailable [phone] Encounter Details Date Type Department Care Team (Late st Contact Info) Description 07/08/2023 Telephone [facility] MEDICINE [address] [place], [place] [phone] Gricel Daniel MD [address] [place], [place] [phone] Social History Tobacco Use Types Packs/Day Years [...] documented as of this encounter Care Teams Petroleum Supply Specialist Relationship Specialty Start Date End Date Gricel Daniel MD [address] [place] [address] PCP - General Family Medicine 08/20/20 Kalina Coyle PharmD [address] [place] [address] Pharmacist Internal Medicine 12/08/23 Layla Hubbard Offline Editor 06/15/23 09/14/23 documented as of this encounter
--- OUTSIDE RECORDS SUMMARY | 2024-08-24 09:44 | XMS_ITS | Encounter Summary ---
Author Organization [employer] Address [address] [facility] 7t [place] [address] Care Team Providers Care Time Buyer Name Role Phone Gricel Daniel MD Primary Care Provider [phone] Kalina Coyle PharmD Unavailable [phone] Encounter Details Date Type Department Care Team (Late st Contact Info) Description 09/19/[address] [facility] MEDICINE [address] [place], [place] [phone] Gricel Daniel MD [address] [place], [place] [phone] Chronic midline low back pain without sciatica [...] EDT Narrative 12/27/2023 9:43 AM EDT ? [facility] ?[address] ?[place] [address] ?XRay Report ? Signed ? Patient: Huseyin,Williams L ?MR#: [id number] ?? 13 ? : 2000 ?Acct:[id number] ? Age/Sex: 23 / M ?ADM Date: 12/14/23 ? Loc: HO.[facility] ? Attending Dr: Gricel Daniel MD ? Ordering Physician: Gricel Daniel ?? Date of Service: 12/14/23 ?? Procedure(s): XR lumbar spine 4V min ?? Accession Number(s): [id number] ? cc: Gricel Daniel ? EXAMINATION: ?? [...] 0940 ? DD/ 1101 ? TD/TT: ? Rib Puller: ? Procedure Note Donherbter, Image - 12/27/2023 [place] [address] XRay Report Signed Patient: Williams Fonatnez LMR#: [id number] 13 : 2000Acct:[id number] Age/Sex: 23 / MADM Date: 12/14/23 Loc: HO.[facility] Attending Dr: Gricel Daniel MD Ordering Physician: Gricel Daniel Date of Service: 12/14/23 Procedure(s): XR lumbar spine 4V min Accession Number(s): [id number] cc: Gricel Daniel EXAMINATION: XR LUMBOSACRAL SPINE [...] in OV> 12/27/23 0940 DD/ 1101 TD/TT: Rib Puller: Gricel Daniel MD IMG XR PROCEDURES Edited Resul t - Final documented in this encounter Visit Diagnoses Diagnosis Chronic midline low back pain without sciatica- Primary documented in this encounter Additional Health Concerns Assessment Noted Time PHQ-9 Depression Total Score: 5 12/18/19 23 2:41 PM EDT documented as of this encounter Care Teams Time Buyer Relationship Specialty Start Date End Date Gricel Daniel MD [address] [place] [address] PCP - General Family Medicine 08/20/20 Kalina Coyle PharmD [address] [place] [address] Pharmacist Internal Medicine 12/08/23 documented as of this encounter
--- OUTSIDE RECORDS SUMMARY | 2024-08-24 09:44 | XMS_ITS | Clinical Summary ---
Author Organization [employer] Address [address] [place] [address] 7[address] [place] [address] Care Team Providers Care Sheltered Workshop Executive Director Name Role Phone Gricel Daniel MD Primary Care Provider [phone] Kalina Coyle PharmD Unavailable [phone] Allergies Active Allergy Reactions Criticality Noted [...] 23 Active Blood Glucose Monitoring Suppl (FreeStyle [place] Lite) w/Device kit USE TO TEST BLOOD [...] coma, with long-term current use of insulin (CMS/[facility]) Inject under the skin 3 times daily. [...] hyperglycemia, with long-term current use of insulin (CMS/[facility]) Use to check blood sugar three times [...] long-term current use of insulin ([facility]) INJECT 160 UNITS SUBCUTANEOUSLY ONCE DAILY. ROTATE [...] long-term current use of insulin ([facility]) Use as directed 100 each 11 07/24/19 [...] EST): Letter written to have Flexeril at prison, permitted to take up to 3 tabs [...] (03/03/2023 10:11 AM EDT): I advise to crop picker medication for pain today and see if [...] 2 diabetes mellitus with obesity ([facility]/HCC) 08/17/2022 Assessment & Plan (12/16/2023 8:12 AM [...] EST): Uncontrolled A1C 14.0 Continue followup at [facility] awaiting PA for Tirzepatide Continue Tresiba 160 units Increase semaglutide to 7mg daily, scripts sent to [facility] [address] Discussed trying to limit portion sizes, alternative choices to high sugar/high fat foods especially now that he is choosing his own foods more [facility] for ALIZA Call podiatry to make appointment Assessment & Plan (07/13/2023 10:39 AM EST): Uncontrolled A1C 8.8 Continue followup at [facility] awaiting PA for Tirzepatide Continue Tresiba and Metformin, encouraged more regular daily compliance with medications Discussed trying to limit portion sizes, alternative choices to high sugar/high fat foods especially now that he is choosing his own foods more [facility] for [facility]IZA Call podiatry to make appointment Assessment & Plan (12/18/2022 10:22 AM EDT): Uncontrolled due to patient noncompliance with treatment. Increase Trulicity to 4.5 mg per week to achieve maximum benefit, while starting PA for Tirzepatide Continue Tresiba and Metformin, encouraged more regular daily compliance with medications Discussed trying to limit portion sizes, alternative choices to high sugar/high fat foods [facility] ALIZA Call podiatry to make appointment Assessment & Plan (09/01/2022 1:09 PM EST): Uncontrolled due to patient noncompliance with treatment. Increase Trulicity to 3 mg per week. 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 We discussed about healthier food choices and increase physical activiy, he will probably start playing basketball in the spring. FU PCP in 4-6 weeks. Nonalcoholic fatty liver 08/17/2022 Severe bipolar disorder with psychotic features 09/15/2020 Assessment & Plan (07/13/2023 10:39 AM EST): Continue psych followup and medication titration He seems to be doing well in the prison setting Assessment & Plan (03/03/2023 10:10 AM EDT): C/w same medication regimen, he will f/u today at [facility] medication refills and adjustments done by [...] Type Department Care Team Description 07/24/2024 Refill [facility] [address] [place] [address] Gricel Daniel MD Type 2 diabetes mellitus with hypoglycemia without coma, with long-term current use of insulin ([facility]) 07/20/2024 Telephone [facility] [address] [place] [address] Za Díaz [place] recall 07/06/2024 Telephone [facility] [address] [place] [address] Alma Banks, DEL[place] [facility][NOTE 2] telephone order 06/29/2024 Telephone [facility] [address] [place] [address] Alma Banks RN [facility] [place][NOTE 2] paperwork 06/26/2024 Telephone [facility] [address] [place] [address] Gricel Daniel MD Appointment Request 06/22/2024 Telephone [facility] [place] [address] Gricel Daniel MD Callback request 06/21/2024 Telephone [facility] [address] [place] [address] Margarita Owen FNP PT1 Submitted 06/20/2024 5:00 PM EST Office Visit [facility] [address] [place] [address] Margarita Owen FNP Wound (Primary Dx); Low back pain at multiple sites 06/15/2024 Telephone [facility] [address] [place] [address] Gricel Daniel MD r./s sick visit 06/11/2024 Telephone [facility] [address] [place] [phone] Gricel Daniel MD 06/11/2024 Refill [facility] [address] [place] [phone] Kalina Coyle PharmD Type 2 diabetes mellitus with obesity (CMS/HCC) ([facility]/HCC) 06/05/2024 Refill [facility] [place] [address] Kalina Coyle PharmD Type 2 diabetes mellitus with obesity (CMS/HCC) ([facility]/HCC) from Last 3 Months Immunizations Name Administration [...] Health Maintenance Due Date Last Done Comments Diabetes: Foot Exam 2011 Alcohol/Substance Use Screening [...] 10/08/2002, Additional history exists COVID-19 Vaccine ( season) 2024 07/24/2022, 12/06/2020, 11/08/2020 Influenza Vaccine (#1) 2024 , 05/09/2019, 04/24/2018, Additional history exists Diabetes: Hemoglobin A1C 06/20/202403/21/ 024, 12/14/2023, 12/08/2023, Additional history exists Depression Screening 07/08/2024 07/08/2023, 12/18/19 23 SDOH Screening 08/31/2024 08/31/2023 Dental X-Ray: Bitewings 10/06/2024 10/06/19 24, 06/20/2018, 08/05/2016, Additional history exists Lipid Panel 12/13/2024 12/14/2023, 01/20/2022 Tobacco Screening 12/13/2024 12/14/2023 Chlamydia and Gonorrhea Screening 08/23/2025 08/23/2024 Diabetes: Urine Protein Screening 08/23/2025 08/23/2024, 12/14/2023 Eye Exam 10/27/2025 10/28/2023, 10/03, 10/28/2023, Additional history exists Dental X-Ray: Full Mouth 10/06/2026 10/06/2023, 08/0 07/2013 Zoster Vaccines (1 of 2) 2051 RSV [...] Procedure Name Priority Date/Time Associated Diagnosis Comments ALBUMIN, RANDOM URINE W/CREATININE Routine 08/23/2024 11:13 AM EST Type 2 diabetes mellitus with obesity (CMS/HCC) ([facility]) CHLAMYDIA/N. GONORRHOEAE RNA, TMA, UROGENITAL Routine 08/23/2024 11:12 AM EST Type 2 diabetes mellitus with obesity (CMS/HCC) ([facility]) POCT GLYCATED HEMOGLOBIN, TOTAL Routine 03/21/2024 2:35 PM EDT Type 2 diabetes mellitus with obesity ([facility]/HCC) ([facility]) LIPID PANEL, STANDARD Routine 12/14/2023 10:17 AM EDT Type 2 diabetes mellitus with hyperglycemia, with long-term current use of insulin ([facility]) PANORAMIC RADIOGRAPHIC IMAGE Routine 10/06/2023 8:30 AM [...] Recently Relevant to Health Maintenance Results * Albumin, Random Urine W/Creatinine (08/23/2024 11:13 AM EST) Creatinine, Urine 35.61 mg/dL [facility] Microalbumin Urine 5.0 mg/L [facility] Microalbum Creatinine Ratio Ur 14.0 <30 ug/mg cr [facility] Comment:Albumin/Creatinine R atio Reference Ranges: Normal: < 30 ug/mg creatinine Microalbuminuria: 30 - 300 ug/mg creatinineClinical Albuminuria: > 300 ug/mg creatinine Urine (Urine, Random) 08/23/2024 11:13 AM EST 08/23/2024 1:11 PM EST us Gricel Daniel MD LAB URINE ORDERABLES Final Res ult [facility] [address] [place] [phone] * Chlamydia/N. Gonorrhoeae RNA, TMA, Urogenitial (08/23/2024 11:12 AM EST) CT PCR NOT DETECTED Not Detect. [facility] Comment:A not detected test result does not exclude the possibilityof infection because test results can be affected byimproper specimen collection, concurrent antibiotic therapy,or the number of organisms in the specimen which may bebelow the sensitivity of the test. As with many diagnostictests, results from the Xpert CT/NG assay should beinterpreted in conjunction with other laboratory andclinical data available to the clinician.Xpert CT/NG performance has not been evaluated in patientsless than 14 years of age. The assay should not be used forthe evaluationof suspected sexual abuse or for other medico-legalindications. Additional testing is recommended in anycircumstance when false positive or false negative resultscould lead to adverse medical, social or psychologicalconsequences. NG PCR NOT DETECTED Not Detect. [facility] Comment:A not detected test result does not exclude the possibilityof infection because test results can be affected byimproper specimen collection, concurrent antibiotic therapy,or the number of organisms in the specimen which may bebelow the sensitivity of the test. As with many diagnostictests, results from the Xpert CT/NG assay should beinterpreted in conjunction with other laboratory andclinical data available to the clinician.Xpert CT/NG performance has not been evaluated in patientsless than 14 years of age. The assay should not be used forthe evaluationof suspected sexual abuse or for other medico-legalindications. Additional testing is recommended in anycircumstance when false positive or false negative resultscould lead to adverse medical, social or psychologicalconsequences. Urine (Urine, Random) 08/23/2024 11:12 AM EST 08/23/2024 4:46 PM EST Narrative [facility] - 08/23/2024 4:46 PM EST Urine Gricel Daniel MD LAB MICROBIOLOGY - GENERAL ORD ERABLES Final Result [facility] [address] [place] [phone] * (ABNORMAL) POCT HGB A1C (03/21/2024 2:35 PM EDT) Hemoglobin A1C 13.4(A) 4.0 - 6.0 % QC Media Lot # [id number] Lot# Expiration Date Blood 03/21/2024 2:35 PM EDT Gricel Daniel MD POINT OF CARE TEST ENTER/EDIT ORDERABLES Final Result * (ABNORMAL) Lipid Panel, Standard (12/14/2023 10:17 AM EDT) Triglycerides 121 <150 mg/dL [facility] Comment:Desirable Triglyceri de: less than 150 mg/dLBorderline High Triglyceride 150-199 mg/dLHigh Triglyceride: 200-499 mg/dLVery High Triglyceride: greater than or equal to 5OO mg/dL Cholesterol 126 <200 mg/dL [facility] Comment:Desirable Cholestero l: less than 200 mg/dLBorderline High Cholesterol: 200-239 mg/dLHigh Cholesterol: greater than 239 mg/dL LDL Cholesterol Calculated 71 <100 mg/dL [facility] Comment:Desirable LDL: less than 100 mg/dLNear Optimal/Above Optimal LDL: 110- 129 mg/dLBorderline High LDL: 130-159 mg/dLHigh LDL: 160-189 mg/dLVery High LDL: greater than or equal to 190 mg/dL HDL Cholesterol 31(L) >40 mg/dL [facility] Comment:Desirable HDL: great er than 40 mg/dL Note: This HDL assay may give artificially low results in patients with liver disease. Blood Venous blood specimen / Unknown 12/14/2023 10:17 AM EDT 12/14/2023 11:15 AM EDT Gricel Daniel MD LAB BLOOD ORDERABLES Final Res ult Performing Organization Address City/[facility]/ZIP Co de Phone Number [facility] [address] [place] [address] [phone] * HEPATITIS C AB W/REFL TO HCV RNA, QN, PCR (01/20/2022 3:57 PM EDT) HEPATITIS C ANTIBODY NON-REACT TAQUERIA NON-REACT TAQUERIA [facility] INDEX 0.10 <1.00 [facility] Comment: ?? HCV antibody was non-reactive. There is no laboratory ?? evidence of HCV infection. ?? In most cases, no further action is required. However, if recent HCV exposure is suspected, a test for HCV RNA (test code 37705) is suggested. ?? For additional information please refer to http://education.[facility] 911/faq/CCP74l3 (This link is being provided for informational/ educational purposes only.) ?? 01/20/2022 3:57 PM EDT [facility] ANSWERING SERVICE AGENT HISTORICAL/NON ORDERABLE LABS Final Result Performing Organization Address City/[facility]/ZIP Co de Phone Number [facility] [address] * HIV 1/2 ANTIGEN/ANTIBODY,FOURTH GENERATION W/RFL (01/20/2022 3:57 PM EDT) HIV-1/2 ANTIGEN AND ANTIBODIES, 4TH GENERATION W/ REFLEX NON-REACT TAQUERIA NON-REACT TAQUERIA [facility] Comment: HIV-1 antigen and HIV-1/HIV-2 [...] ? For additional information please refer to http://[employer].[facility] 911/faq/SUH678 (This link is being provided for informational/ educational purposes only.) ? The performance of this assay has not been clinically validated in patients less than 2 years old. ?? 01/20/2022 3:57 PM EDT [facility] LAB BLOOD ORDERABLES Final Re sult [facility] [address] from Last 3 Months or Most Recently Relevant to Health Maintenance Insurance [facility] C3 DENTAL-[facility] MEDICAID STAND ADULT Care Teams Sheltered Workshop Executive Director Relationship Specialty Start Date End Date Gricel Daniel MD [address] [place] [address] PCP - General Family Medicine 08/20/20 Kalina Coyle, JiaD [address] [place] [address] Pharmacist Internal Medicine 12/08/23
--- OUTSIDE RECORDS SUMMARY | 2024-08-24 09:44 | XMS_ITS | Encounter Summary ---
Author Organization [employer] Address [address] [place] [address] 7t [place] [address] Care Team Providers Care Renewable Energy Consultant Name Role Phone Gricel Daniel MD Primary Care Provider [phone] Kalina Coyle PharmD Unavailable [phone] Reason for Referral * Consultation (Routine) - Authorized Specialty Diagnoses / Procedures Referred By Contac t Referred To Contact Pharmacy Diagnoses Type 2 diabetes mellitus with obesity (CMS/HCC) ([facility]/HCC) Gricel Daniel MD [address] [place] [address] Phone: tel: fax: Referral ID Status Reason Start Date Expiration Date Visits Requested Visits Authorized [id number] Authorized Consult and Treat 04/12/2024 04/12/2025 6 6 Encounter Details Date Type Department Care Team (Late st Contact Info) Description 04/12/2024 Orders Only [facility] [address] [place], [place] [phone] Gricel Daniel MD [address] [place], [place] [phone] Type 2 diabetes mellitus with obesity (CMS/HCC) [...] Routine Type 2 diabetes mellitus with obesity ([facility]/HCC) ([facility]) Ordered: 04/12/2024 documented as of this encounter [...] Type 2 diabetes mellitus with obesity (CMS/HCC) ([facility])- Primary documented in this encounter Additional Health Concerns Assessment Noted Time PHQ-9 Depression Total Score: 5 12/18/19 23 2:41 PM EDT documented as of this encounter Care Teams Renewable Energy Consultant Relationship Specialty Start Date End Date Gricel Daniel MD [address] [place] [address] PCP - General Family Medicine 08/20/20 Kalina Coyle, Bisi [address] [place] [address] Pharmacist Internal Medicine 12/08/23 documented as of this encounter
--- OUTSIDE RECORDS SUMMARY | 2024-08-24 09:44 | XMS_ITS | Encounter Summary ---
Author Organization [employer] Address [address] [facility] [address]t [place] [address] Care Team Providers Care Openstack Cloud Consulting Architect Name Role Phone Gricel Daniel MD Primary Care Provider [phone] Kalina Coyle PharmD Unavailable [phone] Reason for Visit * Reason Comments Med Refill Encounter Details Date Type Department Care Team ([facility] st Contact Info) Description 10/13/2023 Refill [facility] [address] [place], [place] [phone] Gricel Daniel MD [address] [place], [place] [phone] Type 2 diabetes mellitus with obesity ([facility]/HCC) ([facility]) Social History Tobacco Use Types Packs/Day Years [...] documented as of this encounter Care Teams Openstack Cloud Consulting Architect Relationship Specialty Start Date End Date Gricel Daniel MD [address] [place] [address] PCP - General Family Medicine 08/20/20 Kalina Coyle PharmD [address] [place] [address] Pharmacist Internal Medicine 12/08/23 documented as of this encounter
--- OUTSIDE RECORDS SUMMARY | 2024-08-24 09:44 | XMS_ITS | Encounter Summary ---
Author Organization [employer] Address [address] [facility] [address] [place] [address] Care Team Providers Care Android Ios Developer Name Role Phone Gricel Daniel MD Primary Care Provider [phone] Kalina Coyle PharmD Unavailable [phone] Encounter Details Date Type Department Care Team (Late st Contact Info) Description 03/02/2024 Orders Only [facility] [address] [place], [place] [phone] Gricel Daniel MD [address] [place], [place] [phone] Muscle spasm (Primary Dx) Social History Tobacco [...] documented as of this encounter Care Teams Android Ios Developer Relationship Specialty Start Date End Date Gricel Daniel MD [address] [place] [address] PCP - General Family Medicine 08/20/20 Kalina Coyle, PharmD [address] [place] [address] Pharmacist Internal Medicine 12/08/23 documented as of this encounter
[2024-08-24 10:34] LABS: MANUAL DIFF FLAG NO
[2024-08-24 10:39] LABS: Basophils Percent Auto 0.5 % (0-2); Eosinophils Absolute Auto 0.1 X10*3/uL (0.0-0.4); Eosinophils Percent Auto 1.5 % (0-4); Hematocrit 47.2 % (42.0-52.0); Hemoglobin 16.4 g/dl (14.0-18.0); Imm Gran Abs Auto 0.02 X10*3/uL (0.00-0.03); Imm Gran Pct Auto 0.2 % (0.0-0.4); Lymphocytes Absolute Auto 3.4 X10*3/uL (1.2-4.9); Lymphocytes Percent Auto 39.5 % (20-40); Mean Corpuscular HGB Conc 34.7 g/dl (31.0-36.0); Mean Corpuscular Hemoglobin 29.2 pg (27.0-33.0); Mean Corpuscular Volume 84.1 fL (80.0-98.0); Mean Platelet Volume 10.4 fL (9.4-12.4); Monocytes Absolute Auto 0.8 X10*3/uL (0.1-1.2); Neutrophils Absolute Auto 4.3 x10*3/uL (2.0-8.3); Neutrophils Percent Auto 49.3 % (45-73); Platelet Count 232 X10*3/uL (160-400); Red Blood Count 5.61 X10*6/uL (4.60-5.80); Red Cell Distribution Width 11.8 % (11.0-16.0); White Blood Count 8.6 X10*3/uL (4.8-10.8)
[2024-08-24 10:59] LABS: Alanine Aminotransferase 21 U/L (0-40); Alkaline Phosphatase 79 U/L (39-117); Anion Gap 12 (12-20); Aspartate Amino Transferase 17 U/L (5-37); Bilirubin Total 0.5 mg/dL (0.0-1.0); Blood Urea Nitrogen 11 mg/dL (9-16); Calcium 9.3 mg/dL (8.4-10.2); Carbon Dioxide 24 mmol/L (22-29); Chloride 106 mmol/L (96-108); Cholesterol 135 mg/dL (<200); Estimated Glomerular Filt Rate > 60; Glucose Fasting 300 mg/dL (60-99); HDL Cholesterol 28 mg/dL (>40); LDL Cholesterol Calculated 73 mg/dL (<100); Potassium 3.7 mmol/L (3.3-5.1); Sodium 138 mmol/L (135-145); Total Protein 7.3 g/dL (6.5-8.0); Triglycerides 174 mg/dL (<150)
[2024-08-24 11:22] LABS: Valproate 78.2 mcg/mL (50.0-100.0)
== END 2024-08-24 09:15 | disposition home or self-care (01) ==
LOC: HO.10HDL 09:14
PROVIDERS: Visit Provider Nurse Practitioner Psychiatric/Mental Health
DX: Z79.899 Other long term (current) drug therapy (principal)
CPT/HCPCS: 36415; 80053; 80061; 80164; 85025

== ENCOUNTER 2024-09-03 08:31 | Emergency (ER) | payer MEDICAID, SELFPAY ==
--- NOTE | 2024-09-03 | ECG_ITS ---
Test Reason : cp Blood Pressure : */* mmHG Vent. Rate : 104 BPM Atrial Rate : 104 BPM P-R Int : 136 ms QRS Dur : 76 ms QT Int : 302 ms P-R-T Axes : 45 25 34 degrees QTcB Int : 397 ms Sinus tachycardia Nonspecific T wave abnormality Abnormal ECG When compared with ECG of 11-Apr-2023 13:58, No significant change was found Referred By: Generic ED Physician Electronically Signed By: ANIVAL MOROCHO MD
--- NOTE | ~2024-09-03 | XR_ITS ---
EXAMINATION: XR CHEST CLINICAL INFORMATION: COUGH COMPARISON: July 19, 2023 TECHNIQUE: 2 views of the chest were obtained. FINDINGS: No consolidation, pleural effusion or pneumothorax. No hyperinflation. Cardiomediastinal silhouette size is normal. Osseous structures are intact. Patient's large body habitus/obesity. XR/XR chest 2V IMPRESSION: No acute airspace disease. Electronically signed by: Sahil Wallace MD 09/03/2024 09:19 AM JERRY
[2024-09-03 08:37] VITALS: BP 124/80; PULSE 100; O2SAT 98
[2024-09-03 08:38] VITALS: BP 141/96; PULSE 110; RESP 18; TEMP 36.6; O2SAT 98; BMI 57.8
[2024-09-03 09:39] LABS: Influenza A PCR NEGATIVE (Negative); Influenza B PCR NEGATIVE (Negative); Resp Syncy Virus RNA Qual PCR NEGATIVE (Negative); SARS COV2 PCR INHOUSE NEGATIVE (Negative)
[2024-09-03 10:42] LABS: Basophils Percent Auto 0.3 % (0-2); Eosinophils Absolute Auto 0.1 X10*3/uL (0.0-0.4); Eosinophils Percent Auto 0.3 % (0-4); Hematocrit 45.4 % (42.0-52.0); Hemoglobin 15.9 g/dl (14.0-18.0); Imm Gran Abs Auto 0.06 X10*3/uL (0.00-0.03); Imm Gran Pct Auto 0.4 % (0.0-0.4); Lymphocytes Absolute Auto 2.9 X10*3/uL (1.2-4.9); MANUAL DIFF FLAG SCAN; Mean Corpuscular Hemoglobin 29.2 pg (27.0-33.0); Mean Corpuscular Volume 83.5 fL (80.0-98.0); Mean Platelet Volume 10.5 fL (9.4-12.4); Monocytes Absolute Auto 1.6 X10*3/uL (0.1-1.2); Monocytes Percent Auto 10.6 % (2-11); Neutrophils Absolute Auto 10.5 x10*3/uL (2.0-8.3); Neutrophils Percent Auto 69.4 % (45-73); Platelet Count 234 X10*3/uL (160-400); Red Blood Count 5.44 X10*6/uL (4.60-5.80); Red Cell Distribution Width 11.8 % (11.0-16.0); SCAN SMEAR FLAG 1; White Blood Count 15.1 X10*3/uL (4.8-10.8)
[2024-09-03 10:56] LABS: Alanine Aminotransferase 16 U/L (0-40); Albumin Level 3.9 g/dL (3.5-5.0); Alkaline Phosphatase 81 U/L (39-117); Anion Gap 16 (12-20); Aspartate Amino Transferase 16 U/L (5-37); Bilirubin Total 0.5 mg/dL (0.0-1.0); Blood Urea Nitrogen 10 mg/dL (9-16); Calcium 9.2 mg/dL (8.4-10.2); Carbon Dioxide 21 mmol/L (22-29); Chloride 106 mmol/L (96-108); Creatinine Clr Calc Pharmacy 215.3; Estimated Glomerular Filt Rate > 60; Glucose Random 270 mg/dL (60-115); Potassium 3.9 mmol/L (3.3-5.1); Sodium 139 mmol/L (135-145); Total Protein 7.3 g/dL (6.5-8.0)
[2024-09-03 11:04] LABS: Troponin-I High Sensitivity < 2.7 ng/L (<3.5-35.0)
--- NOTE | 2024-09-03 11:09 | ED_ITS ---
HPI - URI/Sore Throat General Chief Complaint: Upper Respiratory Symptoms Stated Complaint: SORE THROAT,CP X1W PER EMS Time Seen by Provider: 09/03/24 11:08 Source: patient, family (mom) and EMS Mode of arrival: EMS Limitations: no limitations History of Present Illness ED Provider: JOHN Falcon HPI Narrative: 24-year-old male with past medical history significant for asthma, T2DM, schizoaffective disorder bipolar type presents to the ED today via EMS for evaluation of sore throat x1 week. Associated pain on swallowing. Normal p.o. intake. Denies difficulty swallowing. Denies fever/ chills, N/V. Also admits to cough productive of yellow/green sputum x 3days. Reports anterior wall chest pain which began yesterday, primarily present when coughing. No exacerbation with deep breathing. Denies hemoptysis. Denies palpitations, SOB, wheezing, calf pain/swelling. Denies recent travel or long car rides. Related Data Home Medications ?Medication ?Instructions ?Recorded ?Confirmed divalproex 500 mg tablet,delayed 500 mg PO DAILY 08/14/22 03/12/23 release dulaglutide 0.75 mg/0.5 mL 4.5 mg subcut QWEEK 08/14/22 03/12/23 subcutaneous pen injector (Trulicity) insulin lispro 100 unit/mL 1 sliding scale dose subcut 08/14/22 03/12/23 subcutaneous pen (Humalog Tempo BID-QID PRN Hyperglycemia Pen (U-100) Insulin) divalproex 500 mg tablet,delayed 1,000 mg PO BEDTIME 02/19/23 03/12/23 release budesonide-formoterol HFA 80 2 puff inhalation BID 03/12/23 03/12/23 mcg-4.5 mcg/actuation aerosol inhaler (Symbicort) bupropion HCl 150 mg 24 hr tablet, 150 mg PO QAM depressive disorder 03/12/23 03/12/23 extended release fenofibrate micronized 43 mg 43 mg PO DAILY 03/12/23 03/12/23 capsule haloperidol 10 mg tablet 10 mg PO BEDTIME 03/12/23 03/12/23 hydroxyzine HCl 50 mg tablet 50 mg PO TID PRN panic attack 03/12/23 03/12/23 insulin degludec 200 unit/mL (3 160 unit subcut DAILY 03/12/23 03/12/23 mL) subcutaneous pen (Tresiba FlexTouch U-200 insulin) lorazepam 1 mg tablet 1 mg PO BID PRN Anxiety 03/12/23 03/12/23 meloxicam 7.5 mg tablet 7.5 mg PO QAM 03/12/23 03/12/23 metformin 500 mg tablet,extended 1,000 mg PO BID 03/12/23 03/12/23 release 24 hr paliperidone palmitate 234 mg/1.5 234 mg IM QMONTH 03/12/23 03/12/23 mL intramuscular syringe (Invega Sustenna) prazosin 1 mg capsule 2 mg PO BEDTIME nightmares 03/12/23 03/12/23 rosuvastatin 20 mg tablet 20 mg PO DAILY 03/12/23 03/12/23 trazodone 150 mg tablet 150 mg PO BEDTIME PRN Insomnia 03/12/23 03/12/23 Previous Rx's ?Medication ?Instructions ?Recorded aluminum-mag hydroxide-simethicone 5 ml PO 5XD PRN indigestion #3,000 04/11/23 200 mg-200 mg-20 mg/5 mL oral susp mL (Maalox Advanced) cyclobenzaprine 5 mg tablet 5 mg PO TID PRN muscle spasm 7 06/06/23 days #21 tabs benzocaine 15 mg-menthol 2.6 mg 1 braden mucous membrane Q2-4H PRN 09/03/24 lozenges (Cepacol Sore Throat sore throat #16 ea (benzocaine-menthol)) doxycycline monohydrate 100 mg 100 mg PO BID 7 days #14 tabs 09/03/24 tablet guaifenesin 200 mg tablet 200 mg PO TID PRN cough #10 tabs 09/03/24 Allergies Allergy/AdvReac Type Severity Reaction Status Date / Time No Known Allergies Allergy Verified 09/03/24 08:43 [No Known Allergies*] Review of Systems 2 Review of Systems: Yes all other systems are reviewed and are negative [facility] Past Medical History Attestation statement: The following information was validated with the patient. 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 Diabetes type 2, uncontrolled Bipolar disorder with psychotic features PTSD (post-traumatic stress disorder) Concussion Asthma Depression Depression Bipolar disorder Anxiety Diabetes mellitus, type 2 Social History Social History Household Members: Family Household Members Other:: mom and sister Housing: Apartment Do you presently have visiting nurse or other home services: No Alcohol intake: current Alcohol intake frequency: holidays/special occasions only Alcohol type: beer, wine and hard liquor Patient Tobacco Use Status: Current everyday Tobacco user Tobacco use type: Cigarette and Smokeless Tobacco Cigarette Packs Per Day: 3 Cigarettes Per Day: 60.0 Years Smoked: 4 years e-Cigarette/Vaping Use: Currently Using Second Hand Smoke Exposure: Yes Substance Use Type: Caffiene Advance Directives: No Advance Directives Information Provided: Yes service: No Current occupational status: disabled 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 Skin: Warm, dry, intact. No rashes or lesions. Head: Normocephalic, atraumatic. EENT: Hearing is intact b/l. Conjunctiva clear. PERRLA. EOM intact. Moist mucous membranes.?Posterior oropharynx erythematous without edema. No peritonsillar masses. No tonsillar exudates. Uvula midline. Controlling secretions and speaking complete sentences. No muffled voice. Neck: Supple without LAD Cardiac: Chest wall symmetric. RRR. Reproducible anterior chest wall ttp. Lungs: Normal respiratory effort without accessory muscle use. CTA bilaterally. Abdomen: Soft, non-tender, non-distended. No rebound tenderness or guarding. Positive BS x4. No splenomegaly. Back: No midline spinous or paraspinal tenderness. No step off deformity. Ext: Upper and lower extremities atraumatic, without tenderness, deformity, swelling or erythema Neuro: AOx3. Normal speech.Ambulating with steady gait. Psych: Appropriate mood and affect. Responds appropriately to questions. Course Course Course Narrative: CBC with leukocytosis to 15 without left shift. Chemistry without acute electrolyte abnormality requiring intervention. Troponin below detectable limits. EKG showing sinus tachycardia, rate of 104 bpm, no acute ischemic changes or ST elevations. Negative covid/ flu/ rsv. strep negative. cxr does not show evidence of pneumonia. > given symptoms, will treat for bronchitis. Doxycycline sent to pharmacy. Cepacol throat lozenges sent for sore throat. Patient has remained stable throughout ED visit today. Discussed worrisome signs and symptoms and when to return to the ED. All questions answered at this time. Patient is agreeable with disposition and stable for discharge. Medications Administered Discontinued Medications Generic Name Dose Route Start Last Admin Trade Name Freq PRN Reason Stop Dose Admin Dexamethasone Sodium Phosphate 10 mg 09/03/24 11:22 09/03/24 11:50 Dexamethasone Sod Phosphate 10 Mg/Ml Vial IVPUSH 09/03/24 11:23 10 mg ONCE ONE Administration Ketorolac Tromethamine 30 mg 09/03/24 11:22 09/03/24 11:50 Ketorolac Tromethamine 30 Mg/Ml Vial IM 09/03/24 11:23 30 mg ONCE ONE Administration Medical Decision Making Medical Decision Making MDM Narrative: 24-year-old male with past medical history significant for asthma, T2DM, schizoaffective disorder bipolar type presents to the ED today via EMS for evaluation of sore throat x1 week, productive cough x3 days and chest pain x24 hours. Patient is hypertensive to 141/96, tachycardic to 110. Not hypoxic. Afebrile. he is nontoxic appearing and in NAD. Posterior oropharynx erythematous without edema. No peritonsillar masses. No tonsillar exudates. Uvula midline. Controlling secretions and speaking complete sentences. No muffled voice. No respiratory distress. Lungs are CTA bilaterally. Congested cough. History without high risk features (not substernal, no exertional component, not relieved with rest).?Minimal CAD risk factors (including age). Exam without evidence of volume overload. EKG without signs of active ischemia. Differential diagnosis includes viral syndrome, strep throat, bronchitis, pneumonia. Unlikely mono, HOT KNIFE CUTTER, retropharyngeal abscess, epiglottitis. Given the timing of pain to ED presentation, plan to send single troponin to evaluate for NSTEMI. Presentation not consistent with acute PE, pneumothorax, thoracic aortic dissection, cardiac effusion or tamponade. Plan: labs, troponin, viral/ strep swabs, EKG, CXR, reassessment Differential Diagnosis Differential Diagnoses: The differential diagnosis associated with the presentation includes as above. Admission/Observation not indicated. Lab Data MDM Lab Attestation statement: I reviewed the patient's lab results. as above. 09/03/24 10:34 09/03/24 10:34 Labs: Lab Results 09/03/24 09/03/24 09/03/24 Range/Units 08:46 10:34 11:27 WBC 15.1 H (4.8-10.8) X10*3/uL RBC 5.44 (4.60-5.80) X10*6/uL Hgb 15.9 (14.0-18.0) g/dl Hct 45.4 (42.0-52.0) % MCV 83.5 (80.0-98.0) fL MCH 29.2 (27.0-33.0) pg MCHC 35.0 (31.0-36.0) g/dl RDW 11.8 (11.0-16.0) % Plt Count 234 (160-400) X10*3/uL MPV 10.5 (9.4-12.4) fL Immature Gran % (Auto) 0.4 (0.0-0.4) % Neut % (Auto) 69.4 (45-73) % Lymph % (Auto) 19.0 L (20-40) % Wagoner % (Auto) 10.6 (2-11) % Eos % (Auto) 0.3 (0-4) % Baso % (Auto) 0.3 (0-2) % Lymph # (Auto) 2.9 (1.2-4.9) X10*3/uL Wagoner # (Auto) 1.6 H (0.1-1.2) X10*3/uL Eos # (Auto) 0.1 (0.0-0.4) X10*3/uL Baso # (Auto) 0.0 (0.0-0.2) X10*3/uL Abs Immat Gran (auto) 0.06 H (0.00-0.03) X10*3/uL Absolute Neuts (auto) 10.5 H (2.0-8.3) x10*3/uL Absolute Nucleated RBC 0.000 (0.0-0.012) X10*3/uL Nucleated RBC % (auto) 0.0 (0.0-0.2) /100WBC Smear Tech's Comments VERIFIED Sodium 139 (135-145) mmol/L Potassium 3.9 (3.3-5.1) mmol/L Chloride 106 (96-108) mmol/L Carbon Dioxide 21 L (22-29) mmol/L Anion Gap 16 (12-20) BUN 10 (9-16) mg/dL Creatinine 0.83 (0.5-1.4) mg/dL Estim Creat Clear Calc 215.3 Estimated GFR > 60 Random Glucose 270 H (60-115) mg/dL Calcium 9.2 (8.4-10.2) mg/dL Total Bilirubin 0.5 (0.0-1.0) mg/dL AST 16 (5-37) U/L ALT 16 (0-40) U/L Alkaline Phosphatase 81 (39-117) U/L Troponin I High Sens < 2.7 (<3.5-35.0) ng/L Total Protein 7.3 (6.5-8.0) g/dL Albumin 3.9 (3.5-5.0) g/dL Influenza Type A (PCR) NEGATIVE (Negative) Influenza Type B (PCR) NEGATIVE (Negative) RSV RNA Qual (PCR) NEGATIVE (Negative) SARS-CoV-2 RNA (RT-PCR) NEGATIVE (Negative) S. pyogenes GrpA LUCHO Negative (Negative) Independent Interpretation I performed an independent interpretation of an: EKG and Plain X-Ray Interpretation: CXR without infiltrate or consolidation EKG showing sinus tachycardia with a rate of 104 beats per minute, QT 302, QTC 397, no acute ischemic changes or ST elevations Radiology Impression Discussion of test interpretation with radiology: I have reviewed the radiologist's reading. Radiologist Impression: Procedure(s): XR chest 2V Accession Number(s): [id number] cc: Generic ED Physician~ EXAMINATION: XR CHEST CLINICAL INFORMATION: COUGH COMPARISON: July 19, 2023 TECHNIQUE: 2 views of the chest were obtained. FINDINGS: No consolidation, pleural effusion or pneumothorax. No hyperinflation. Cardiomediastinal silhouette size is normal. Osseous structures are intact. Patient's large body habitus/obesity. XR/XR chest 2V IMPRESSION: No acute airspace disease. Electronically signed by: Sahil Wallace MD 09/03/2024 09:19 AM EST External Record Review External record reviewed: Inpatient record Prescription Management I considered prescription management with: Pain Medication and Antibiotic (doxycycline) Chronic Conditions Patient?s care impacted by: Diabetes Social Determinants Patient?s care significantly limited by Social Determinants of Health including: Other Social Determinant of Health Critical Care Time Critical Care Time Critical Care Time: No Discharge Plan Discharge Clinical Impression: Bronchitis Patient Disposition: Home, Self-Care Instructions: Acute Bronchitis (ED) Additional Instructions: Your blood work today is reassuring. You tested negative for covid, flu, rsv, strep throat. Your chest xray does not show pneumonia. You will be treated for bronchitis. You have been provided with a prescription for doxycycline. Take this as prescribed x5 days. You have been provided with a prescription for Cepacol throat lozenges. Take this as prescribed. You have been provided with a prescription for guaifenesin. Take this as needed for cough. You may take Tylenol/ Motrin at home for pain/ fevers. Return with new or worsening symptoms. In the case of an emergency call 911. Prescriptions: New doxycycline monohydrate 100 mg tablet 100 mg PO BID 7 Days Qty: 14 0RF Cepacol Sore Throat (sheba-men) 15-2.6 mg lozenge 1 braden mucous membrane Q2-4H PRN (Reason: sore throat) Qty: 16 0RF guaifenesin 200 mg tablet 200 mg PO TID PRN (Reason: cough) Qty: 10 0RF No Action divalproex 500 mg tablet,delayed release (DR/EC) 500 mg PO DAILY insulin lispro [Humalog Tempo Pen(U-100)Insuln] 100 unit/mL insulin pen 1 sliding scale dose subcut BID-QID PRN (Reason: Hyperglycemia) Trulicity 0.75 mg/0.5 mL pen injector 4.5 mg subcut QWEEK divalproex 500 mg tablet,delayed release (DR/EC) 1,000 mg PO BEDTIME prazosin 1 mg capsule 2 mg PO BEDTIME bupropion HCl 150 mg tablet extended release 24 hr 150 mg PO QAM Invega Sustenna 234 mg/1.5 mL syringe 234 mg IM QMONTH haloperidol 10 mg tablet 10 mg PO BEDTIME lorazepam 1 mg tablet 1 mg PO BID PRN (Reason: Anxiety) meloxicam 7.5 mg tablet 7.5 mg PO QAM insulin degludec [Tresiba FlexTouch U-200] 200 unit/mL (3 mL) insulin pen 160 unit subcut DAILY hydroxyzine HCl 50 mg tablet 50 mg PO TID PRN (Reason: panic attack) trazodone 150 mg tablet 150 mg PO BEDTIME PRN (Reason: Insomnia) metformin 500 mg tablet extended release 24 hr 1,000 mg PO BID rosuvastatin 20 mg tablet 20 mg PO DAILY fenofibrate micronized 43 mg capsule 43 mg PO DAILY budesonide-formoterol [Symbicort] 80-4.5 mcg/actuation HFA aerosol inhaler 2 puff INHALATION BID alum-mag hydroxide-simeth [Maalox Advanced] 200-200-20 mg/5 mL suspension 5 ml PO 5XD PRN (Reason: indigestion) Qty: 3000 0RF cyclobenzaprine 5 mg tablet 5 mg PO TID PRN (Reason: muscle spasm) 7 Days Qty: 21 0RF Referrals: Gricel Daniel MD [Primary Care Provider] - Interventions: ED Discharge Assessment Last Done: 09/03/24 12:26 Discharge Date/Time: 09/03/24 12:28 Print Language: Swazi
[2024-09-03 11:25] LABS: SLIDE REVIEW VERIFIED
[2024-09-03 11:40] LABS: IDNOW Serial# 58CA691E; Strep A Nucleic Acid Negative (Negative)
[2024-09-03] MEDS: Ketorolac Tromethamine 30 MG/ML VIAL IM (11:50)
[2024-09-03] MEDS: dexAMETHasone sod phosphate 10 MG/ML VIAL IVPUSH (11:50)
[2024-09-03 12:05] VITALS: BP 126/68; PULSE 104; RESP 18; TEMP 36.6; O2SAT 98
[2024-09-03 12:26] VITALS: BP 126/68; PULSE 104; RESP 18; TEMP 36.6; O2SAT 98
--- OUTSIDE RECORDS SUMMARY | 2024-09-03 13:13 | XMS_ITS | Encounter Summary ---
Author Organization [employer] Address [address] [place] [address] Care Team Providers Care Salt Grinder Name Role Phone Gricel Daniel MD Primary Care Provider [phone] Kalina Coyel PharmD Unavailable [phone] Encounter Details Date Type Department Care Team (Late st Contact Info) Description 07/08/2023 Telephone [facility] [address] [place], [place] [phone] Gricel Daniel MD [address] [place], [place] [phone] Social History Tobacco Use Types Packs/Day Years [...] documented as of this encounter Care Teams Salt Grinder Relationship Specialty Start Date End Date Gricel Daniel MD [address] [place] [address] PCP - General Family Medicine 08/20/20 Kalina Coyle PharmD [address] [place] [address] Pharmacist Internal Medicine 12/08/23 Layla Hubbard Youth Care Specialist 06/15/23 09/14/23 documented as of this encounter
--- OUTSIDE RECORDS SUMMARY | 2024-09-03 13:13 | XMS_ITS | Encounter Summary ---
Author Organization [employer] Address [address] [place] [address] Care Team Providers Care Information Technology Program Manager Name Role Phone Gricel Daniel MD Primary Care Provider [phone] Kalina Coyle PharmD Unavailable [phone] Encounter Details Date Type Department Care Team (Late st Contact Info) Description 09/19/2023 Orders Only [facility] [address] [place], [place] [phone] Gricel Daniel MD [address] [place], [place] [phone] Chronic midline low back pain without sciatica [...] EDT Narrative 12/27/2023 9:43 AM EDT ? [facility] ?[address] ?[place] [address] ?XRay Report ? Signed ? Patient: Huseyin,Williams L ?MR#: [id number] ?? 13 ? : 2000 ?Acct:[id number] ? Age/Sex: 23 / M ?ADM Date: 12/14/23 ? Loc: HO.[facility] ? Attending Dr: Gricel Daniel MD ? Ordering Physician: Gricel Daniel ?? Date of Service: 12/14/23 ?? Procedure(s): XR lumbar spine 4V min ?? Accession Number(s): [id number] ? cc: Gricel Daniel ? EXAMINATION: ?? [...] 0940 ? DD/ 1101 ? TD/TT: ? Fur Tailor: ? Procedure Note Donherbter, Image - 12/27/2023 [place] [address] XRay Report Signed Patient: Williams Fontanez LMR#: [id number] 13 : 2000Acct:[id number] Age/Sex: 23 / MADM Date: 12/14/23 Loc: [facility] Attending Dr: Gricel Daniel MD Ordering Physician: Gricel Daniel Date of Service: 12/14/23 Procedure(s): XR lumbar spine 4V min Accession Number(s): [id number] cc: Gricel Daniel EXAMINATION: XR LUMBOSACRAL SPINE [...] in OV> 12/27/23 0940 DD/ 1101 TD/TT: Fur Tailor: Gricel Daniel MD IMG XR PROCEDURES Edited Resul t - Final documented in this encounter Visit Diagnoses Diagnosis Chronic midline low back pain without sciatica- Primary documented in this encounter Additional Health Concerns Assessment Noted Time PHQ-9 Depression Total Score: 5 12/18/19 23 2:41 PM EDT documented as of this encounter Care Teams Information Technology Program Manager Relationship Specialty Start Date End Date Gricel Daniel MD [address] [place] [address] PCP - General Family Medicine 08/20/20 Kalina Coyle PharmD [address] [place] [address] Pharmacist Internal Medicine 12/08/23 documented as of this encounter
--- OUTSIDE RECORDS SUMMARY | 2024-09-03 13:13 | XMS_ITS | Encounter Summary ---
Author Organization [employer] Address [address] [place] [address] Care Team Providers Care Project Development Manager Name Role Phone Gricel Daniel MD Primary Care Provider [phone] Kalina Coyle PharmD Unavailable [phone] Encounter Details Date Type Department Care Team (Late st Contact Info) Description 03/02/2024 Orders Only [facility] [address] [place], [place] [phone] Gricel Daniel MD [address] [place], [place] [phone] Muscle spasm (Primary Dx) Social History Tobacco [...] documented as of this encounter Care Teams Project Development Manager Relationship Specialty Start Date End Date Gricel Daniel MD [address] [place] [address] PCP - General Family Medicine 08/20/20 Kalina Coyle, PharmD [address] [place] [address] Pharmacist Internal Medicine 12/08/23 documented as of this encounter
--- OUTSIDE RECORDS SUMMARY | 2024-09-03 13:13 | XMS_ITS | Encounter Summary ---
Author Organization [employer] Address [address] [place] [address] [address] [place] [address] Care Team Providers Care Change Management Name Role Phone Gricel Daniel MD Primary Care Provider [phone] Kalina Coyle PharmD Unavailable [phone] Reason for Visit * Reason Onset Date Comments PT1 09/27/2022 Encounter Details Date Type Department Care Team ([facility] st Contact Info) Description 09/27/2022 Telephone [facility] [address] [place], [place] [phone] Gricel Daniel MD [address] [place], [place] [phone] PT1 Social History Tobacco Use Types Packs/Day [...] Miscellaneous Notes * Telephone Encounter - [place] - 09/27/2022 8:59 AM EDT Tc from mother requesting a PT1 PT1 Name of facility: [facility] Specialty: Diabetes Appt Location: [address] [place] [address] Date: October 05, 2022 Time: 12:45 pm fax: n/a Phone: n/a wheelchair: n/a Fire Fighter: Yes documented in this encounter Plan of Treatment Not on file documented as of this encounter Visit Diagnoses Not on filedocumented in this encounter Care Teams Change Management Relationship Specialty Start Date End Date Gricel Daniel MD [address] [place] [address] PCP - General Family Medicine 08/20/20 Kalina Coyle PharmD [address] [place] [address] Pharmacist Internal Medicine 12/08/23 Layla Hubbard Core Paster 06/15/23 09/14/23 documented as of this encounter
--- OUTSIDE RECORDS SUMMARY | 2024-09-03 13:13 | XMS_ITS | Encounter Summary ---
Author Organization [employer] Address [address] [facility] [place] [address] Care Team Providers Care C D Stripper Name Role Phone Gricel Daniel MD Primary Care Provider [phone] Kalina Coyle PharmD Unavailable [phone] Reason for Visit * Reason Comments Med Refill Encounter Details Date Type Department Care Team ([facility] st Contact Info) Description 06/11/2024 Refill [facility] [address] [place], [place] [phone] Kalina Coyle, PharmD [address] [place] [address] Type 2 diabetes mellitus with obesity ([facility]/HCC) ([facility]) Social History Tobacco Use Types Packs/Day [...] Type 2 diabetes mellitus with obesity (CMS/HCC) ([facility]/HCC) documented in this encounter Additional Health Concerns Assessment Noted Time PHQ-9 Depression Total Score: 5 12/18/19 23 2:41 PM EDT documented as of this encounter Care Teams C D Stripper Relationship Specialty Start Date End Date Gricel Daniel MD [address] [place] [address] PCP - General Family Medicine 08/20/20 Puia, Kalina, PharmD [address] [place] [address] Pharmacist Internal Medicine 12/08/23 documented as of this encounter
--- OUTSIDE RECORDS SUMMARY | 2024-09-03 13:13 | XMS_ITS | Clinical Summary ---
Author Organization [employer] Address [address] [place] [address] 7t [place] [address] Care Team Providers Care Crm Campaign Manager Name Role Phone Gricel Daniel MD Primary Care Provider [phone] Kalina Coyle PharmD Unavailable [phone] Allergies Active Allergy Reactions Criticality Noted [...] 23 Active Blood Glucose Monitoring Suppl (FreeStyle [place] Lite) w/Device kit USE TO TEST BLOOD [...] coma, with long-term current use of insulin (CMS/[facility]) Inject under the skin 3 times daily. [...] hyperglycemia, with long-term current use of insulin (CMS/[facility]) Use to check blood sugar three times [...] hyperglycemia, with long-term current use of insulin ([facility]) INJECT 160 UNITS SUBCUTANEOUSLY ONCE DAILY. ROTATE [...] coma, with long-term current use of insulin ([facility]) Use as directed 100 each 11 07/24/19 [...] EST): Letter written to have Flexeril at [facility], permitted to take up to 3 tabs [...] (03/03/2023 10:11 AM EDT): I advise to olive picker medication for pain today and see [...] 08/17/2022 Type 2 diabetes mellitus with obesity ([facility]/HCC) 08/17/2022 Assessment & Plan (12/16/2023 8:12 AM [...] EST): Uncontrolled A1C 14.0 Continue followup at [facility] awaiting PA for Tirzepatide Continue Tresiba 160 units Increase semaglutide to 7mg daily, scripts sent to [facility] [address] Discussed trying to limit portion sizes, alternative choices to high sugar/high fat foods especially now that he is choosing his own foods more [facility] for ALIZA Call podiatry to make appointment Assessment & Plan (07/13/2023 10:39 AM EST): Uncontrolled A1C 8.8 Continue followup at [facility] awaiting PA for Tirzepatide Continue Tresiba and Metformin, encouraged more regular daily compliance with medications Discussed trying to limit portion sizes, alternative choices to high sugar/high fat foods especially now that he is choosing his own foods more [facility] for ALIZA Call podiatry to make appointment Assessment & Plan (12/18/2022 10:22 AM EDT): Uncontrolled due to patient noncompliance with treatment. Increase Trulicity to 4.5 mg per week to achieve maximum benefit, while starting PA for Tirzepatide Continue Tresiba and Metformin, encouraged more regular daily compliance with medications Discussed trying to limit portion sizes, alternative choices to high sugar/high fat foods [facility] ALIZA Call podiatry to make appointment Assessment & Plan (09/01/2022 1:09 PM EST): Uncontrolled due to patient noncompliance with treatment. Increase Trulicity to 3 mg per week. Continue Tresiba and Humalog same dose We discussed with him regarding importance of using medications as prescribed to avoid group home complications. We discussed about healthier food choices and increase physical activiy, he will probably start playing basketball in the spring. FU PCP in 4-6 weeks. Nonalcoholic fatty liver 08/17/2022 Severe bipolar disorder with psychotic features 09/15/2020 Assessment & Plan (07/13/2023 10:39 AM EST): Continue psych followup and medication titration He seems to be doing well in the [facility] setting Assessment & Plan (03/03/2023 10:10 AM EDT): C/w same medication regimen, he will f/u today at [facility] medication refills and adjustments done by specialist [...] Encounters Date Type Department Care Team Description 09/03/2024 Orders Only GENERIC EXTERNAL DATA DEPARTMENT Provider, Generic External Data 08/24/2024 Patient Outreach [facility] MEDICINE [address] [place] [address] Haseeb Thompson Recovery Supports 07/24/2024 Refill [facility] MED & PEDS [address] [place] [address] Gricel Daniel MD Type 2 diabetes mellitus with hypoglycemia without coma, with long-term current use of insulin ([facility]) 07/20/2024 Telephone [facility] MEDICINE [address] [place] [address] Za Díaz MA recall 07/06/2024 Telephone [facility] MEDICINE [address] [place] [address] Alma Banks RN CHD telephone order 06/29/2024 Telephone [facility] MEDICINE [address] [place] [phone] Alma Banks, DELMA CHD paperwork 06/26/2024 Telephone [facility] MEDICINE [address] [place] [phone] Gricel Daniel MD Appointment Request 06/22/2024 Telephone [facility] MEDICINE [address] [place] [phone] Gricel Daniel MD Callback request 06/21/2024 Telephone [facility] MEDICINE [address] [place] [phone] Margarita Owen FNP PT1 Submitted 06/20/2024 5:00 PM EST Office Visit [facility] [address] [place] [phone] Margarita Owen FNP Wound (Primary Dx); Low back pain at multiple sites 06/15/2024 Telephone [facility] MEDICINE [address] [place] [phone] Gricel Daniel MD r./s sick visit 06/11/2024 Telephone [facility] MEDICINE [address] [place] [address] [phone] Gricel Daniel MD 06/11/2024 Refill [facility] MEDICINE [address] [place] [phone] Kalina Coyle PharmD Type 2 diabetes mellitus with obesity (CMS/HCC) ([facility]) 06/05/2024 Refill [facility] MEDICINE [address] [place] [phone] Kalina Coyle PharmD Type 2 diabetes mellitus with obesity (CMS/HCC) ([facility]) from Last 3 Months Immunizations Name Administration [...] and other sugary beverages Diet No Kalina Coyle PharmD Hemoglobin A1c < 7 Result Component 13.4(03/21/20 2:35 PM EDT) No Kalina Coyle PharmD Record your blood sugar as directed Result Component No Kalina Coyle PharmD Procedures Procedure Name Priority Date/Time Associated Diagnosis Comments STREP A NUCLEIC ACID Routine 09/03/2024 11:27 AM EST ALBUMIN, RANDOM URINE W/CREATININE Routine 08/23/2024 11:13 AM EST Type 2 diabetes mellitus with obesity (CMS/HCC) ([facility]) CHLAMYDIA/N. GONORRHOEAE RNA, TMA, UROGENITAL Routine 08/23/2024 11:12 AM EST Type 2 diabetes mellitus with obesity (CMS/HCC) ([facility]) POCT GLYCATED HEMOGLOBIN, TOTAL Routine 03/21/2024 2:35 PM EDT Type 2 diabetes mellitus with obesity (CMS/HCC) ([facility]) LIPID PANEL, STANDARD Routine 12/14/2023 10:17 AM EDT Type 2 diabetes mellitus with hyperglycemia, with long-term current use of insulin ([facility]) PANORAMIC RADIOGRAPHIC IMAGE Routine 10/06/2023 8:30 AM [...] Recently Relevant to Health Maintenance Results * Strep A Nucleic Acid (09/03/2024 11:27 AM EST) IDNOW SERIAL# [id number] [facility] Strep A Nucleic Acid Negative Negative [facility] Comment:All test results mus t be correlated with clinical findings.This test has not been evaluated for monitoring treatment ofinfection.Additional follow-up testing using the culture method isrequired if the result is negative and clinical symptomspersist, or in the event of an acute rheumatic feveroutbreak. 09/03/2024 11:2 7 AM EST 09/03/2024 11:30 AM EST us Generic External Data Provider LAB MICROBIOLOGY - GENERAL ORDERABLES Final Result Performing Organization Address [facility]/ZIP Co de Phone Number [facility] [address] [place] [phone] * Albumin, Random Urine W/Creatinine (08/23/2024 11:13 AM EST) Pathologist [facility] Creatinine, Urine 35.61 mg/dL [facility] Microalbumin Urine 5.0 mg/L [facility] Microalbum Creatinine Ratio Ur 14.0 <30 ug/mg cr [facility] Comment:Albumin/Creatinine R atio Reference Ranges: Normal: < 30 ug/mg creatinine Microalbuminuria: 30 - 300 ug/mg creatinineClinical Albuminuria: > 300 ug/mg creatinine Urine (Urine, Random) 08/23/2024 11:13 AM EST 08/23/2024 1:11 PM EST us Gricel Daniel MD LAB URINE ORDERABLES Final Res ult Performing Organization Address City/[facility]/ZIP Co de Phone Number [facility] [address] [place] [phone] * Chlamydia/N. Gonorrhoeae RNA, TMA, Urogenitial (08/23/2024 11:12 AM EST) Pathologist [facility] CT PCR NOT DETECTED Not Detect. [facility] Comment:A not detected test result [...] psychologicalconsequences. NG PCR NOT DETECTED Not Detect. [facility] Comment:A not detected test result [...] AM EST 08/23/2024 4:46 PM EST Narrative [facility] - 08/23/2024 4:46 PM EST Urine us Gricel Daniel MD LAB MICROBIOLOGY - GENERAL ORD ERABLES Final Result [facility] [address] [place] [address] [phone] * (ABNORMAL) POCT HGB A1C (03/21/2024 2:35 PM EDT) Hemoglobin A1C 13.4(A) 4.0 - 6.0 % QC Media Lot # [id number] Lot# Expiration Date [id number] Blood 03/21/2024 2:35 PM EDT Gricel Daniel MD POINT OF CARE TEST ENTER/EDIT ORDERABLES Final Result * (ABNORMAL) Lipid Panel, Standard (12/14/2023 10:17 AM EDT) Triglycerides 121 <150 mg/dL [facility] Comment:Desirable Triglyceri de: less than 150 mg/dLBorderline High Triglyceride 150-199 mg/dLHigh Triglyceride: 200-499 mg/dLVery High Triglyceride: greater than or equal to 5OO mg/dL Cholesterol 126 <200 mg/dL [facility] Comment:Desirable Cholestero l: less than 200 mg/dLBorderline High Cholesterol: 200-239 mg/dLHigh Cholesterol: greater than 239 mg/dL LDL Cholesterol Calculated 71 <100 mg/dL [facility] Comment:Desirable LDL: less than 100 mg/dLNear Optimal/Above Optimal LDL: 110- 129 mg/dLBorderline High LDL: 130-159 mg/dLHigh LDL: 160-189 mg/dLVery High LDL: greater than or equal to 190 mg/dL HDL Cholesterol 31(L) >40 mg/dL [facility] Comment:Desirable HDL: great er than 40 mg/dL Note: This HDL assay may give artificially low results in patients with liver disease. Blood Venous blood specimen / Unknown 12/14/2023 10:17 AM EDT 12/14/2023 11:15 AM EDT Gricel Daniel MD LAB BLOOD ORDERABLES Final Res ult [facility] [address] [place], [place] [phone] * HEPATITIS C AB W/REFL TO HCV RNA, QN, PCR (01/20/2022 3:57 PM EDT) HEPATITIS C ANTIBODY NON-REACT [place] NON-REACT [facility] INDEX 0.10 <1.00 [facility] Comment: ?? HCV antibody was non-reactive. There is no laboratory ?? evidence of HCV infection. ?? In most cases, no further action is required. However, if recent HCV exposure is suspected, a test for HCV RNA (test code 14572) is suggested. ?? For additional information please refer to http://[employer]ywire.D[employer]plet Technology/faq/VZX67m9 (This link is being provided for informational/ educational purposes only.) ?? 01/20/2022 3:57 PM EDT [facility] HISTORICAL/NON ORDERABLE LABS Final Result Performing Organization Address [facility] de Phone Number [facility] [address] [place] [address], * HIV 1/2 ANTIGEN/ANTIBODY,FOURTH GENERATION W/RFL (01/20/2022 3:57 PM EDT) HIV-1/2 ANTIGEN AND ANTIBODIES, 4TH GENERATION W/ REFLEX NON-REACT [place] NON-REACT TA[place]IA [facility] Comment: HIV-1 antigen and HIV-1/HIV-2 [...] ? For additional information please refer to http://education.Droplet Technology/faq/GZS608 (This link is being provided for informational/ educational purposes only.) ? The performance of this assay has not been clinically validated in patients less than 2 years old. ?? 01/20/2022 3:57 PM EDT [facility] LAB BLOOD ORDERABLES Final Re sult Performing Organization Address [facility] de Phone Number [facility] [address] from Last 3 Months or Most Recently Relevant to Health Maintenance Insurance [place] [facility] MEDICAID STAND ADULT Care Teams Crm Campaign Manager Relationship Specialty Start Date End Date Gricel Daniel MD [address] [place] [phone] PCP - General Family Medicine 08/20/20 Kalina Coyle, JiaD [address] [place] [address] [place] [phone] Pharmacist Internal Medicine 12/08/23
--- OUTSIDE RECORDS SUMMARY | 2024-09-03 13:13 | XMS_ITS | Encounter Summary ---
Author Organization [employer] Address [address] [facility] 7t [place] [address] Care Team Providers Care Director Of Residence Life Name Role Phone Gricel Daniel MD Primary Care Provider [phone] Kalina Coyle PharmD Unavailable [phone] Reason for Visit * Reason Comments Med Refill Encounter Details Date Type Department Care Team ([facility] st Contact Info) Description 10/05/2023 Refill [facility] MEDICINE [address] [place], [place] [phone] Sammi Cortez MD [address] [place], [place] [phone] Type 2 diabetes mellitus with obesity ([facility]/HCC) ([facility]) Social History Tobacco Use Types Packs/Day [...] documented as of this encounter Care Teams Director Of Residence Life Relationship Specialty Start Date End Date Gricel Daniel MD [address] [place] [address] PCP - General Family Medicine 08/20/20 Kalina Coyle PharmD [address] [place] [address] Pharmacist Internal Medicine 12/08/23 documented as of this encounter
--- OUTSIDE RECORDS SUMMARY | 2024-09-03 13:13 | XMS_ITS | Encounter Summary ---
Author Organization [email or web address] Address [address] [place] [address] 7t [place] [address] Care Team Providers Care Assembly Supervisor Name Role Phone Gricel Daniel MD Primary Care Provider [phone] Kalina Coyle PharmD Unavailable [phone] Reason for Referral * Consultation (Routine) - Authorized Specialty Diagnoses / Procedures Referred By Contac t Referred To Contact Pharmacy Diagnoses Type 2 diabetes mellitus with obesity (CMS/HCC) ([facility]/HCC) Gricel Daniel MD [address] [place] [address] Phone: tel: fax: Referral ID Status Reason Start Date Expiration Date Visits Requested Visits Authorized [id number] Authorized Consult and Treat 04/12/2024 04/12/2025 6 6 Encounter Details Date Type Department Care Team (Late st Contact Info) Description 04/12/2024 Orders Only [facility] MEDICINE [address] [place], [place] [phone] Gricel Daniel MD [address] [place], [place] [phone] Type 2 diabetes mellitus with obesity (CMS/HCC) [...] Routine Type 2 diabetes mellitus with obesity ([facility]/HCC) ([facility]) Ordered: 04/12/2024 documented as of this [...] Type 2 diabetes mellitus with obesity (CMS/HCC) ([facility])- Primary documented in this encounter Additional Health Concerns Assessment Noted Time PHQ-9 Depression Total Score: 5 12/18/19 23 2:41 PM EDT documented as of this encounter Care Teams Assembly Supervisor Relationship Specialty Start Date End Date Gricel Daniel MD [address] [place] [address] PCP - General Family Medicine 08/20/20 Kalina Coyle, Bisi [address] [place] [address] Pharmacist Internal Medicine 12/08/23 documented as of this encounter
--- OUTSIDE RECORDS SUMMARY | 2024-09-03 13:13 | XMS_ITS | Encounter Summary ---
Author Organization [employer] Address [address] [facility] 7t [place] [address] Care Team Providers Care Hospital Coordinator Name Role Phone Gricel Daniel MD Primary Care Provider [phone] Kalina Coyle PharmD Unavailable [phone] Reason for Visit * Reason Comments Med Refill Encounter Details Date Type Department Care Team ([facility] st Contact Info) Description 10/13/2023 Refill [facility] MEDICINE [address] [place], [place] [phone] Gricel Daniel MD [address] [place], [place] [phone] Type 2 diabetes mellitus with obesity ([facility]/HCC) ([facility]) Social History Tobacco Use Types [...] documented as of this encounter Care Teams Hospital Coordinator Relationship Specialty Start Date End Date Gricel Daniel MD [address] [place] [address] PCP - General Family Medicine 08/20/20 Kalina Coyle PharmD [address] [place] [address] Pharmacist Internal Medicine 12/08/23 documented as of this encounter
--- OUTSIDE RECORDS SUMMARY | 2024-09-03 13:13 | XMS_ITS | Encounter Summary ---
Author Organization [employer] Address [address] [facility] 7t [place] [address] Care Team Providers Care Manager Hair Name Role Phone Gricel Daniel MD Primary Care Provider [phone] Kalina Coyle PharmD Unavailable [phone] Encounter Details Date Type Department Care Team (Late st Contact Info) Description 07/08/2023 Telephone [facility] MEDICINE [address] [place], [place] [phone] Gricel Daniel MD [address] [place], [place] [phone] Social History Tobacco Use Types Packs/Day Years [...] as of this encounter Care Teams Manager Hair Relationship Specialty Start Date End Date Gricel Daniel MD [address] [place] [address] PCP - General Family Medicine 08/20/20 Kalina Coyle PharmD [address] [place] [address] Pharmacist Internal Medicine 12/08/23 Layla Hubbard Printing Roller Polisher 06/15/23 09/14/23 documented as of this encounter
--- OUTSIDE RECORDS SUMMARY | 2024-09-03 13:13 | XMS_ITS | Encounter Summary ---
Author Organization [email or web address] Address [address] [place] [address] 7t [place] [address] Care Team Providers Care Construction Materials Tester Name Role Phone Gricel Daniel MD Primary Care Provider [phone] Kalina Coyle PharmD Unavailable [phone] Reason for Referral * Consultation (Routine) - Closed Specialty Diagnoses / Procedures Referred By Contdelbert t Referred To Contact Physical Therapy Diagnoses Low back pain at multiple sites Gricel Daniel MD [address] [place] [address] Phone: tel: fax: Physical Therapy, AT [address] [place] [address] Dr Herrera Elbert [place] Phone: tel: fax: Referral ID Status Reason Start Date Expiration Date V isits Requested Visits Authorized [id number] Closed Specialty Services Required 03/22/2024 03/22/2025 20 20 Encounter Details Date Type Department Care Team (Late st Contact Info) Description 02/15/2024 Orders Only [facility] MEDICINE [address] [place], [place] [phone] Gricel Daniel MD [address] [place], [place] [phone] Low back pain at multiple sites (Primary [...] documented as of this encounter Care Teams Construction Materials Tester Relationship Specialty Start Date End Date Gricel Daniel MD [address] [place] [address] PCP - General Family Medicine 08/20/20 Kalina Coyle PharmD [address] [place] [address] Pharmacist Internal Medicine 12/08/23 documented as of this encounter
--- OUTSIDE RECORDS SUMMARY | 2024-09-03 13:13 | XMS_ITS | Encounter Summary ---
Author Organization [employer] Address [address] [facility] 7t [place] [address] Care Team Providers Care Elastic Attacher Chainstitch Name Role Phone Gricel Daniel MD Primary Care Provider [phone] Kalina Coyle PharmD Unavailable [phone] Encounter Details Date Type Department Care Team (Late st Contact Info) Description 09/03/2024 Orders Only GENERIC EXTERNAL DATA DEPARTMENT Provider, Generic External Data Social History Tobacco Use Types Packs/Day Years [...] Kalina, PharmD documented as of this encounter Procedures Procedure Name Priority Date/Time Associated Diagnosis Comments STREP A NUCLEIC ACID Routine 09/03/2024 11:27 AM EST documented in this encounter Results * Strep A Nucleic Acid (09/03/2024 11:27 AM EST) IDNOW SERIAL# [id number] [facility] Strep A Nucleic Acid Negative Negative [facility] Comment:All test results mus t [...] LAB MICROBIOLOGY - GENERAL ORDERABLES Final Result [facility] [address] [place] [phone] documented in this encounter Visit Diagnoses Not on filedocumented in this encounter Additional Health Concerns Assessment Noted Time PHQ-9 Depression Total Score: 5 12/18/19 23 2:41 PM EDT documented as of this encounter Care Teams Elastic Attacher Chainstitch Relationship Specialty Start Date End Date Gricel Daniel MD [address] [place] [address] PCP - General Family Medicine 08/20/20 Kalina Coyle, JiaD [address] [place] [address] Pharmacist Internal Medicine 12/08/23 documented as of this encounter
--- OUTSIDE RECORDS SUMMARY | 2024-09-03 13:13 | XMS_ITS | Encounter Summary ---
Author Organization [employer] Address [address] [place] [address] 7t [place] [address] Care Team Providers Care Food And Beverage Order Clerk Name Role Phone Gricel Daniel MD Primary Care Provider [phone] Kalina Coyle PharmD Unavailable [phone] Encounter Details Date Type Department Care Team (Late st Contact Info) Description 08/19/2022 Orders Only [facility] MEDICINE [address] [place], [place] [phone] Sammi Cortez MD [address] [place], [place] [phone] Type 2 diabetes mellitus with obesity (CMS/HCC) [...] Primary documented in this encounter Care Teams Food And Beverage Order Clerk Relationship Specialty Start Date End Date Gricel Daniel MD [address] [place], [place] [phone] PCP - General Family Medicine 08/20/20 Kalina Coyle, Bisi [address] [place] [phone] Pharmacist Internal Medicine 12/08/23 Layla Hubbard Solar Design Engineer 06/15/23 09/14/23 documented as of this encounter
--- OUTSIDE RECORDS SUMMARY | 2024-09-03 13:14 | XMS_ITS | Encounter Summary ---
Author Organization [employer] Address [address] [facility] 7t [place] [address] Care Team Providers Care Supervisor Pipeline Name Role Phone Gricel Daniel MD Primary Care Provider [phone] Kalina Coyle PharmD Unavailable [phone] Reason for Visit * Reason Comments [facility] Encounter Details Date Type Department Care Team ([facility] st Contact Info) Description 08/24/2024 Patient Outreach [facility] MEDICINE [address] [place], [place] [phone] Haseeb Thompson [address] [place], [place] [phone] [facility] Social History Tobacco Use Types Packs/Day Years [...] PM EDT documented as of this encounter Progress Notes * Haseeb Thompson - 08/24/2024 1:41 PM EST I met with Williams today. Setting: in person at [facility] Recovery Wellness Goals worked on: Social Stability Action taken/next steps: Attended alcohol and drug free activity Additional comments: Recovery Center Haseeb Thompson documented in this encounter Plan of Treatment [...] documented as of this encounter Care Teams Supervisor Pipeline Relationship Specialty Start Date End Date Gricel Daniel MD [address] [place] [address] PCP - General Family Medicine 08/20/20 Puia, Kalina, PharmD [address] [place] [address] Pharmacist Internal Medicine 12/08/23 documented as of this encounter
== END 2024-09-03 12:28 | disposition home or self-care (01) ==
PROVIDERS: Physician Assistant Medical; Emergency Provider Emergency Medicine; PCP General Practice
DX: J40 Bronchitis, not specified as acute or chronic (principal); E11.9 Type 2 diabetes mellitus without complications; F17.210 Nicotine dependence, cigarettes, uncomplicated
CPT/HCPCS: 0241U; 36415; 71046; 80053; 84484; 85025; 87651; 93005; 96372; 96374; 99284; J1100; J1885

== ENCOUNTER → 2024-09-03 08:44 | Outpatient (BNV) | payer MEDICAID, SELFPAY | PROVIDERS: Visit Provider Radiology Diagnostic Radiology | DX: R05.9 Cough, unspecified (principal) | CPT/HCPCS: 71046 ==

== ENCOUNTER → 2024-09-03 10:02 | Outpatient (BNV) | payer MEDICAID, SELFPAY | PROVIDERS: Emergency Provider Emergency Medicine; PCP General Practice; Visit Provider Internal Medicine Cardiovascular Disease | DX: R07.9 Chest pain, unspecified (principal); R00.0 Tachycardia, unspecified; R94.31 Abnormal electrocardiogram [ECG] [EKG] | CPT/HCPCS: 93010 ==

== ENCOUNTER 2024-10-25 12:57 | Emergency (ER) | payer MEDICAID, SELFPAY ==
[2024-10-25 12:59] VITALS: BP 119/74; PULSE 95; RESP 18; TEMP 36.4; O2SAT 97; BMI 57.6
--- NOTE | 2024-10-25 13:00 | ED.GENADULT ---
HPI - General Adult General Chief complaint: Medical Clearance Stated complaint: wants to be drug tested for fentanyl Time Seen by Provider: 10/25/24 13:03 Source: patient, RN notes reviewed and old records reviewed Mode of arrival: ambulatory History of Present Illness ED Provider: Claudia Jimenez PA-C HPI narrative: 24 yo M w/pmhx DM, asthma, schizoaffective, presenting to the ED c/o smoking weed yesterday & feeling off since, seeing double of hands > which he denies at present. Admits he is back at baseline now. denies other illicit drugs or ETOH. Admits sx lasted for 1 day. States he got his weed from a dispensary, however, left the room while his friend was rolling joint & wants to see if he was laced. Denies SI/HI or other complaints at present Related Data Home Medications ?Medication ?Instructions ?Recorded ?Confirmed divalproex 500 mg tablet,delayed 500 mg PO DAILY 08/14/22 03/12/23 release dulaglutide 0.75 mg/0.5 mL 4.5 mg subcut QWEEK 08/14/22 03/12/23 subcutaneous pen injector (Trulicity) insulin lispro 100 unit/mL 1 sliding scale dose subcut 08/14/22 03/12/23 subcutaneous pen (Humalog Tempo BID-QID PRN Hyperglycemia Pen (U-100) Insulin) divalproex 500 mg tablet,delayed 1,000 mg PO BEDTIME 02/19/23 03/12/23 release budesonide-formoterol HFA 80 2 puff inhalation BID 03/12/23 03/12/23 mcg-4.5 mcg/actuation aerosol inhaler (Symbicort) bupropion HCl 150 mg 24 hr tablet, 150 mg PO QAM depressive disorder 03/12/23 03/12/23 extended release fenofibrate micronized 43 mg 43 mg PO DAILY 03/12/23 03/12/23 capsule haloperidol 10 mg tablet 10 mg PO BEDTIME 03/12/23 03/12/23 hydroxyzine HCl 50 mg tablet 50 mg PO TID PRN panic attack 03/12/23 03/12/23 insulin degludec 200 unit/mL (3 160 unit subcut DAILY 03/12/23 03/12/23 mL) subcutaneous pen (Tresiba FlexTouch U-200 insulin) lorazepam 1 mg tablet 1 mg PO BID PRN Anxiety 03/12/23 03/12/23 meloxicam 7.5 mg tablet 7.5 mg PO QAM 03/12/23 03/12/23 metformin 500 mg tablet,extended 1,000 mg PO BID 03/12/23 03/12/23 release 24 hr paliperidone palmitate 234 mg/1.5 234 mg IM QMONTH 03/12/23 03/12/23 mL intramuscular syringe (Invega Sustenna) prazosin 1 mg capsule 2 mg PO BEDTIME nightmares 03/12/23 03/12/23 rosuvastatin 20 mg tablet 20 mg PO DAILY 03/12/23 03/12/23 trazodone 150 mg tablet 150 mg PO BEDTIME PRN Insomnia 03/12/23 03/12/23 Previous Rx's ?Medication ?Instructions ?Recorded aluminum-mag hydroxide-simethicone 5 ml PO 5XD PRN indigestion #3,000 04/11/23 200 mg-200 mg-20 mg/5 mL oral susp mL (Maalox Advanced) cyclobenzaprine 5 mg tablet 5 mg PO TID PRN muscle spasm 7 06/06/23 days #21 tabs benzocaine 15 mg-menthol 2.6 mg 1 braden mucous membrane Q2-4H PRN 09/03/24 lozenges (Cepacol Sore Throat sore throat #16 ea (benzocaine-menthol)) doxycycline monohydrate 100 mg 100 mg PO BID 7 days #14 tabs 09/03/24 tablet guaifenesin 200 mg tablet 200 mg PO TID PRN cough #10 tabs 09/03/24 Allergies Allergy/AdvReac Type Severity Reaction Status Date / Time No Known Allergies Allergy Verified 10/25/24 13:03 [No Known Allergies*] Review of Systems Review of Systems: Yes all other systems are reviewed and are negative Constitutional: Constitutional: Reports as per [facility] Past Medical History Attestation statement: The following information was validated with the patient. 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 Diabetes type 2, uncontrolled Bipolar disorder with psychotic features PTSD (post-traumatic stress disorder) Concussion Asthma Depression Depression Bipolar disorder Anxiety Diabetes mellitus, type 2 Social History Social History Household Members: Family Household Members Other:: mom and sister Housing: Apartment Do you presently have visiting nurse or other home services: No Alcohol intake: current Alcohol intake frequency: holidays/special occasions only Alcohol type: beer, wine and hard liquor Patient Tobacco Use Status: Current everyday Tobacco user Tobacco use type: Cigarette and Smokeless Tobacco Cigarette Packs Per Day: 3 Cigarettes Per Day: 60.0 Years Smoked: 4 years e-Cigarette/Vaping Use: Currently Using Second Hand Smoke Exposure: Yes Substance Use Type: Caffiene Advance Directives: No Advance Directives Information Provided: Yes Do you have a plan to hurt others: No Plan service: No Current occupational status: disabled 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 Sexual orientation: Decline to Answer Physical Exam ED Vital Signs: Vital Signs - 24 hr 10/25/24 12:59 10/25/24 13:49 Temperature 97.6 F 97.6 F Pulse Rate 95 95 Respiratory Rate 18 18 Blood Pressure 119/74 119/74 Pulse Oximetry 97 97 Oxygen Delivery Method Room Air Room Air BMI result Body Mass Index 57.6 Const General: cooperative, healthy appearing and no acute distress Orientation/consciousness: patient oriented x3 Limitations: no limitations HENMT Head: Yes normal to inspection and Yes atraumatic Ears: hearing grossly normal bilaterally General nose exam: Normal external nose present Face and sinus: Yes normal facial exam Eyes General: appearance normal, both eyes and all related structures EOM: EOMs intact bilaterally Neck Neck: Yes normal visual inspection and Yes no meningeal signs Resp Effort & Inspection: normal respiratory effort and no respiratory distress Cardio Rate: regular rate Skin Rashes: no rashes Wounds: no wounds Neuro General: patient oriented x3, tone normal, moves all extremities and no meningeal signs Cranial nerves: Yes CN's II-XII intact bilaterally Gait exam (Neuro): Normal gait present Extrem General: Yes normal to inspection Course Course Course Narrative: -1344--drug screen positive for THC. Results discussed with patient including worrisome signs and symptoms and strict return precautions, and when to return to the emergency department. They verbalized understanding and feel safe for discharge at this time. Medical Decision Making Medical Decision Making MDM Narrative: 24 yo M w/pmhx DM, asthma, schizoaffective, presenting to the ED c/o smoking weed yesterday & feeling off since, seeing double of hands. Admits he is back at baseline now. denies other illicit drugs or ETOH. On exam vital signs stable, NAD, nontoxic appearing, concern for substance abuse. Denies SI/HI. Plan: TIRADO Please refer to course for remaining clinical decision making, interpretation of labs/imaging results, and discussions with consultants and/or family members. Differential Diagnosis Differential Diagnoses: The differential diagnosis associated with the presentation includes As above Lab Data MDM Lab Attestation statement: I reviewed the patient's lab results. Labs: Lab Results 10/25/24 Range/Units 13:14 Urine Opiates Screen Not Detected (Not Detect) Ur Buprenorphine Scrn Not Detected (Not Detect) ng/mL Ur Oxycodone Screen Not Detected (Not Detect) ng/mL Urine Methadone Screen Not Detected (Not Detect) ng/mL Urine Fentanyl Screen Not Detected (Not Detect) Ur Barbiturates Screen Not Detected (Not Detect) Ur Phencyclidine Scrn Not Detected (Not Detect) Ur Amphetamines Screen Not Detected (Not Detect) U Benzodiazepines Scrn Not Detected (Not Detect) Urine Cocaine Screen Not Detected (Not Detect) U Marijuana (THC) Screen POSITIVE H (Not Detect) External Record Review External record reviewed: Inpatient record, Office record, Outpatient record, Prior outpatient labs, Prior outpatient radiology, Primary care record and Outside ED record Tests considered The following testing was considered but not selected: As above Social Determinants Patient?s care significantly limited by Social Determinants of Health including: Alcoholism and drug addiction in family and Other Social Determinant of Health Discharge Plan Discharge Clinical Impression: Marijuana use Patient Disposition: Home, Self-Care Additional Instructions: Avoid alcohol and drug use Your drug screen was only positive for marijuana. No fentanyl or other illicit substances Follow up with your primary care doctor If symptoms persist or worsen return to the emergency department Prescriptions: No Action divalproex 500 mg tablet,delayed release (DR/EC) 500 mg PO DAILY insulin lispro [Humalog Tempo Pen(U-100)Insuln] 100 unit/mL insulin pen 1 sliding scale dose subcut BID-QID PRN (Reason: Hyperglycemia) Trulicity 0.75 mg/0.5 mL pen injector 4.5 mg subcut QWEEK divalproex 500 mg tablet,delayed release (DR/EC) 1,000 mg PO BEDTIME prazosin 1 mg capsule 2 mg PO BEDTIME bupropion HCl 150 mg tablet extended release 24 hr 150 mg PO QAM Invega Sustenna 234 mg/1.5 mL syringe 234 mg IM QMONTH haloperidol 10 mg tablet 10 mg PO BEDTIME lorazepam 1 mg tablet 1 mg PO BID PRN (Reason: Anxiety) meloxicam 7.5 mg tablet 7.5 mg PO QAM insulin degludec [Tresiba FlexTouch U-200] 200 unit/mL (3 mL) insulin pen 160 unit subcut DAILY hydroxyzine HCl 50 mg tablet 50 mg PO TID PRN (Reason: panic attack) trazodone 150 mg tablet 150 mg PO BEDTIME PRN (Reason: Insomnia) metformin 500 mg tablet extended release 24 hr 1,000 mg PO BID rosuvastatin 20 mg tablet 20 mg PO DAILY fenofibrate micronized 43 mg capsule 43 mg PO DAILY budesonide-formoterol [Symbicort] 80-4.5 mcg/actuation HFA aerosol inhaler 2 puff INHALATION BID alum-mag hydroxide-simeth [Maalox Advanced] 200-200-20 mg/5 mL suspension 5 ml PO 5XD PRN (Reason: indigestion) Qty: 3000 0RF cyclobenzaprine 5 mg tablet 5 mg PO TID PRN (Reason: muscle spasm) 7 Days Qty: 21 0RF doxycycline monohydrate 100 mg tablet 100 mg PO BID 7 Days Qty: 14 0RF Cepacol Sore Throat (sheba-men) 15-2.6 mg lozenge 1 braden mucous membrane Q2-4H PRN (Reason: sore throat) Qty: 16 0RF guaifenesin 200 mg tablet 200 mg PO TID PRN (Reason: cough) Qty: 10 0RF Referrals: Gricel Daniel MD [Primary Care Provider] - 1 week Interventions: ED Discharge Assessment Last Done: 10/25/24 13:49 Discharge Date/Time: 10/25/24 13:50 Print Language: Divehi
[2024-10-25 13:35] LABS: Amphetamine Screen Urine Not Detected (Not Detect); Barbiturates, Urine Not Detected (Not Detect); Benzodiazepines Screen Urine Not Detected (Not Detect); Buprenorphine Scr Not Detected (Not Detect); Cannabinoid Screen Urine POSITIVE (Not Detect); Cocaine Screen Urine Not Detected (Not Detect); Fentanyl, urine Not Detected (Not Detect); Methadone Screen, Urine Not Detected (Not Detect); Opiate Screen Urine Not Detected (Not Detect); Oxycodone Screen Urine Not Detected (Not Detect); Phencyclidine Screen Urine Not Detected (Not Detect)
[2024-10-25 13:49] VITALS: BP 119/74; PULSE 95; RESP 18; TEMP 36.4; O2SAT 97
--- OUTSIDE RECORDS SUMMARY | 2024-10-25 15:35 | XMS_ITS | Encounter Summary ---
Author Organization [employer] Address [address] [facility] [address] [place] [address] Care Team Providers Care Sr. Manager Marketing Name Role Phone Gricel Daniel MD Primary Care Provider [phone] Kalina Coyle PharmD Unavailable [phone] Reason for Visit * Reason Comments Med Refill Encounter Details Date Type Department Care Team ([facility] st Contact Info) Description 06/11/2024 Refill [facility] MEDICINE [address] [place], [place] [phone] Kalina Coyle, PharmD [address] [place] [address] Type 2 diabetes mellitus with obesity ([facility]/HCC) ([facility]) Social History Tobacco Use Types Packs/Day [...] as of this encounter Plan of Treatment Upcoming Encounters Date Type Department Care Team (Late st Contact Info) Description 10/26/2024 1:00 PM EDT Office Visit [facility] ADULT D[facility] [address] [place] [address] Bola Suárez 11/01/2024 11:00 AM EDT Medication Management [facility] [address] [place] [phone] Puia, Kalina, PharmD [address] [place] [phone] 01/14/2025 1:30 PM EDT Office Visit [address] [address] Gricel Daniel MD [address] [place] [address] [phone] documented as of this encounter Goals Goal [...] with obesity (CMS/HCC) ([facility]/HCC) documented in this encounter Additional Health Concerns Assessment Noted Time PHQ-9 Depression Total Score: 5 12/18/19 23 2:41 PM EDT documented as of this encounter Care Teams Sr. Manager Marketing Relationship Specialty Start Date End Date Gricel Daniel MD [address] [place] [address] PCP - General Family Medicine 08/20/20 Kalina Coyle PharmD [address] [place] [address] Pharmacist Internal Medicine 12/08/23 documented as of this encounter
--- OUTSIDE RECORDS SUMMARY | 2024-10-25 15:35 | XMS_ITS | Encounter Summary ---
Author Organization [employer] Address [address] [facility] [address] [place] [address] Care Team Providers Care Osteopathic Resident Name Role Phone Gricel Daniel MD Primary Care Provider [phone] Kalina Coyle PharmD Unavailable [phone] Reason for Visit * Reason Onset Date Comments Appointment Request 09/26/2024 Encounter Details Date Type Department Care Team ([facility] st Contact Info) Description 09/26/2024 Telephone [facility] MEDICINE [address] [place], [place] [phone] Gricel Daniel MD [address] [place], [place] [phone] Appointment Request Social History Tobacco Use Types Packs/Day Years Used Date Smoking Tobacco: Every Day Cigarettes Passive Smoke Exposure: Current Smokeless Tobacco: Never Alcohol Use Standard Drinks/Week Comments Never 0 (1 standard drink = 0.6 oz pur e alcohol) Depression Answer Date Recorded Patient Health Questionnaire-9 Score 5 12/17/2022 Housing Stability Answer Date Recorded What is your housing situation today? I have queta serra 09/04/[address] you li ve. Do you have problems with any of the following? None of the above 09/04/2024 Food Insecurity Answer Date Recorded Within the past 12 months, y ou worried that your food would run out before you got money to buy more: Sometimes True 2024 Within the past 12 months,th e food you bought just didn't last and you didn't have enough money to get more: Sometimes True 09/04/2024 Transportation Answer Date Recorded In the past 12 months, has l ack of transportation kept you from medical appts, meetings, work or from getting things needed for daily living? No 09/04/2024 Utilities Answer Date Recorded In the past 12 months, has t he electric, gas, oil or water company threatened to shut off services in your home? No 09/04/2024 Depression Answer Date Recorded Patient Health Questionnaire-2 Score 0 07/08/2023 Internet Access Answer Date Recorded Internet Access Q1 Yes 09/04/2024 Internet Access Q2 Not on file 09/04/2024 Sex and Gender Information Value Date Recorded Sex Assigned at Male 05/03/2022 10:16 AM EDT Legal Sex Male 10:16 AM EDT Gender Identity Gender Queer 10/06/2023 1:21 PM EDT Sexual Orientation Pansexual 10/06/2023 1: 21 PM EDT documented as of this encounter Miscellaneous Notes * Telephone Encounter - Vannessa Mcdaniel - 09/26/2024 2:09 PM EDT Tc from pt's mom requesting r/s appt (06/26/24) with Kalina. documented in this encounter Plan of Treatment Upcoming Encounters Date Type Department Care Team (Late st Contact Info) Description 10/26/2024 1:00 PM EDT Office Visit [facility] [address] [place] [address] Bola Suárez 11/01/2024 11:00 AM EDT Medication Management [facility] MED[facility]INE [address] [place] [phone] Kalina Coyle, PharmD [address] [place] [address] 01/14/2025 1:30 PM EDT Office Visit [facility] MED[facility] [address] [place] [address] Gricel Daniel MD [address] [place] [address] documented as of this encounter Goals Goal Patient Goal Type Associated Problems Recent Progress Patient-Stated? Author Drink less soda, juice, and other sugary beverages Diet No Kalina Coyle, PharmD Hemoglobin A1c < 7 Result Component 13.4(03/21/20 24 2:35 PM EDT) No Kalina Coyle, PharmD Record your blood sugar as directed Result Component No Kalina Coyle PharmD documented as of this encounter Visit Diagnoses Not on filedocumented in this encounter Additional Health Concerns Assessment Noted Time PHQ-9 Depression Total Score: 5 12/18/19 23 2:41 PM EDT documented as of this encounter Care Teams Osteopathic Resident Relationship Specialty Start Date End Date Gricel Daniel MD [address] [place] [address] PCP - General Family Medicine 08/20/20 Kalina Coyle PharmD [address] [place] [address] Pharmacist Internal Medicine 12/08/23 documented as of this encounter
--- OUTSIDE RECORDS SUMMARY | 2024-10-25 15:35 | XMS_ITS | Encounter Summary ---
Author Organization [employer] Address [address] [facility] [address] [place] [address] Care Team Providers Care Aircraft Time Clerk Name Role Phone Gricel Daniel MD Primary Care Provider [phone] Kalina Coyle PharmD Unavailable [phone] Encounter Details Date Type Department Care Team (Late st Contact Info) Description 09/19/2023 Orders Only [facility] MEDICINE [address] [place], [place] [phone] Gricel Daniel MD [address] [place], [place] [phone] Chronic midline low back pain without sciatica [...] Description 10/26/2024 1:00 PM EDT Office Visit [facility] ADULT DENTAL [address] [place] [address] Bola Suárez 11/01/2024 11:00 AM EDT Medication Management [facility] MEDICINE [address] [place] [address] Kalina Coyle, PharmD [address] [place] [address] 01/14/2025 1:30 PM EDT Office Visit [facility] MEDICINE [address] [place] [address] Gricel Daniel MD [address] [place] [address] documented as of this encounter Procedures Procedure [...] EDT Narrative 12/27/2023 9:43 AM EDT ? [facility] ?[address] ?[place] [address] ?XRay Report ? Signed ? Patient: Huseyin,Williams L ?MR#: [id number] ?? 13 ? : 2000 ?Acct:[id number] ? Age/Sex: 23 / M ?ADM Date: 12/14/23 ? Loc: HO.HHCL ? Attending Dr: Gricel Daniel MD ? Ordering Physician: Gricel Daniel ?? Date of Service: 12/14/23 ?? Procedure(s): XR lumbar spine 4V min ?? Accession Number(s): [id number] ? cc: Gricel Daniel ? EXAMINATION: ?? [...] 0940 ? DD/ 1101 ? TD/TT: ? Fleshing Machine Operator: ? Procedure Note El, Image - 12/27/[address] [address] XRay Report Signed Patient: Williams Fontanez LMR#: [id number] 13 : 2000Acct:[id number] Age/Sex: 23 / MADM Date: 12/14/23 Loc: HO.HHCL Attending Dr: Gricel Daniel MD Ordering Physician: Gricel Daniel Date of Service: 12/14/23 Procedure(s): XR lumbar spine 4V min Accession Number(s): [id number] cc: Gricel Daniel EXAMINATION: XR LUMBOSACRAL SPINE [...] in OV> 12/27/23 0940 DD/ 1101 TD/TT: Fleshing Machine Operator: Gricel Daniel MD IMG XR PROCEDURES Edited Resul t - Final documented in this encounter Visit Diagnoses Diagnosis Chronic midline low back pain without sciatica- Primary documented in this encounter Additional Health Concerns Assessment Noted Time PHQ-9 Depression Total Score: 5 12/18/19 23 2:41 PM EDT documented as of this encounter Care Teams Aircraft Time Clerk Relationship Specialty Start Date End Date Gricel Daniel MD [address] [place] [address] PCP - General Family Medicine 08/20/20 Kalina Coyle PharmD [address] [place], [place] [phone] Pharmacist Internal Medicine 12/08/23 documented as of this encounter
--- OUTSIDE RECORDS SUMMARY | 2024-10-25 15:35 | XMS_ITS | Encounter Summary ---
Author Organization [employer] Address [address] [facility] [address] [place] [address] Care Team Providers Care Carpet Cleaning Technician Name Role Phone Gricel Daniel MD Primary Care Provider [phone] Kalina Coyle PharmD Unavailable [phone] Encounter Details Date Type Department Care Team (Late st Contact Info) Description 07/08/2023 Telephone [facility] MEDICINE [address] [place], [place] [phone] Gricel Daniel MD [address] [place], [place] [phone] Social History Tobacco Use Types Packs/Day Years [...] Office Visit [facility] ADULT DENTAL [address] [place] [address] Bola Suárez 11/01/2024 11:00 AM EDT Medication Management [facility] MEDICINE [address] [place] [address] Kalina Coyle, PharmD [address] [place] [address] 01/14/2025 1:30 PM EDT Office Visit [facility] MEDICINE [address] [place] [address] Gricel Daniel MD [address] [place] [address] documented as of this encounter Visit Diagnoses Not on filedocumented in this encounter Additional Health Concerns Assessment Noted Time PHQ-9 Depression Total Score: 5 12/18/19 23 2:41 PM EDT documented as of this encounter Care Teams Carpet Cleaning Technician Relationship Specialty Start Date End Date Gricel Daniel MD [address] [place] [address] PCP - General Family Medicine 08/20/20 Kalina Coyle PharmD [address] [place] [address] Pharmacist Internal Medicine 12/08/23 Layla Hubbard Perioperative Manager 06/15/23 09/14/23 documented as of this encounter
--- OUTSIDE RECORDS SUMMARY | 2024-10-25 15:35 | XMS_ITS | Encounter Summary ---
Author Organization [employer] Address 75 [facility] 7t [place] [address] Care Team Providers Care Nurse Intern Name Role Phone Gricel Daniel MD Primary Care Provider [phone] Kalina Coyle PharmD Unavailable [phone] Encounter Details Date Type Department Care Team (Late st Contact Info) Description 10/25/2024 Orders Only GENERIC EXTERNAL DATA DEPARTMENT Provider, [...] Description 10/26/2024 1:00 PM EDT Office Visit [facility] ADULT DENTAL [address] [place] [address] Bola Suárez 11/01/2024 11:00 AM EDT Medication Management [facility] [address] [place] [address] Puia, Kalina, PharmD [address] [place] [address] 01/14/2025 1:30 PM EDT Office Visit [address] [address] Gricel Daniel MD [address] [place] [address] documented as of this encounter Goals Goal [...] Procedure Name Priority Date/Time Associated Diagnosis Comments DRUG MONITOR, PANEL 1, SCREEN, URINE Routine 10/25/2024 1:14 PM EDT documented in this encounter Results * (ABNORMAL) Drug Monitoring, Panel 1, Screen, Urine (10/25/2024 1:14 PM EDT) Opiate Screen Urine Not Detected Not Detect [facility] Comment:Opiate cut-off is 30 0 ng/mL.Positive results are unconfirmed and should not be used fornon-medical purposes. Barbiturates, Urine Not Detected Not Detect [facility] Comment:Barbiturate cut-off is 200 ng/mL.Positive results are unconfirmed and should not be used fornon-medical purposes. Phencyclidine Screen Urine Not Detected Not Detect [facility] Comment:Phencyclidine cut-of f is 25 ng/mL.Positive results are unconfirmed and should not be used fornon-medical purposes. Amphetamine Screen Urine Not Detected Not Detect [facility] Comment:Amphetamine cut-off is 1000 ng/mL.Positive results are unconfirmed and should not be used fornon-medical purposes. Benzodiazepines Screen Urine Not Detected Not Detect [facility] Comment:Benzodiazepine cut-o ff is 200 ng/mL.Positive results are unconfirmed and should not be used fornon-medical purposes. Cocaine Screen Urine Not Detected Not Detect [facility] Comment:Cocaine cut-off is 3 00 ng/mL.Positive results are unconfirmed and should not be used fornon-medical purposes. Cannabinoid Screen Urine POSITIVE(A) Not Detect [facility] Comment:Cannabinoid cut-off is 50 ng/mL.Positive results are unconfirmed and should not be used fornon-medical purposes. Methadone Screen, Urine Not Detected Not Detect ng/mL [facility] Comment:Methadone cut-off is 300 ng/mL.Positive results are unconfirmed and should not be used fornon-medical purposes. FENTANYL URINE Not Detected Not Detect [facility] Comment:Fentanyl cut-off is 1 ng/mL.Positive results are unconfirmed and should not be used fornon-medical purposes. Oxycodone Urine Screen Not Detected Not Detect ng/mL [facility] Comment:Oxycodone cut-off is 100 ng/mL.Positive results are unconfirmed and should not be used fornon-medical purposes. Buprenorphine Screen Not Detected Not Detect ng/mL [facility] Comment:Buprenorphine cut-of f is 5 ng/mL.Positive results are unconfirmed and should not be used fornon-medical purposes. 10/25/2024 1:14 PM EDT 10/25/2024 1:18 PM EDT us Generic External Data Provider LAB URINE ORDERAB LES Final Result [facility] [address] [place] [address] [phone] documented in this encounter Visit Diagnoses Not on filedocumented in this encounter Additional Health Concerns Assessment Noted Time PHQ-9 Depression Total Score: 5 12/18/19 23 2:41 PM EDT documented as of this encounter Care Teams Nurse Intern Relationship Specialty Start Date End Date Gricel Daniel MD [address] [place] [address] PCP - General Family Medicine 08/20/20 Kalina Coyle PharmD [address] [place] [address] Pharmacist Internal Medicine 12/08/23 documented as of this encounter
--- OUTSIDE RECORDS SUMMARY | 2024-10-25 15:35 | XMS_ITS | Encounter Summary ---
Author Organization [employer] Address 75 [facility] 7t [place] [address] Care Team Providers Care Anthropology Lecturer Name Role Phone Gricel Daniel MD Primary Care Provider [phone] Kalina Coyle PharmD Unavailable [phone] Reason for Visit * Reason Onset Date Comments Med Refill 09/26/2024 Encounter Details Date Type Department Care Team ([facility] st Contact Info) Description 09/26/2024 Telephone [facility] MEDICINE [address] [place], [place] [phone] Gricel Daniel MD [address] [place], [place] [phone] Med Refill Social History Tobacco Use Types Packs/Day Years [...] encounter Miscellaneous Notes * Telephone Encounter - Shalini Rooney LPN - 09/26/2024 2:11 PM EDT Medication was sent to [facility] with 5 refills please advise patient to call pharmacy and transfer script to [facility]. * Telephone Encounter - Vannessa Mcdaniel - 09/26/2024 2:08 PM EDT Images from the original note were not included. TC from pt requesting medication refill. Medications needing refill : insulin degludec (Tresiba FlexTouch) 200 UNIT/ML injection To be sent to: [facility] [place] - [address] documented in this encounter Plan of Treatment Upcoming Encounters Date Type Department Care Team (Late st Contact Info) Description 10/26/2024 1:00 PM EDT Office Visit [facility] ADULT DENTAL [address] [place] [address] Bola Suárez 11/01/2024 11:00 AM EDT Medication Management [facility] MEDICINE [address] [place], [place] [phone] Kalina Coyle, PharmD [address] [place] [address] 01/14/2025 1:30 PM EDT Office Visit [facility] MEDICINE [address] [place] [address] Gricel Daniel MD [address] [place] [address] documented as of this encounter Goals Goal Patient Goal Type Associated Problems Recent Progress Patient-Stated? Author Drink less soda, juice, and other sugary beverages Diet No Kalina Coyle, PharmD Hemoglobin A1c < 7 Result Component 13.4(03/21/20 24 2:35 PM EDT) No Kalina Coyle, PharmD Record your blood sugar as directed Result Component No Kalina Coyle, PharmD documented as of this encounter Visit Diagnoses Not on filedocumented in this encounter Additional Health Concerns Assessment Noted Time PHQ-9 Depression Total Score: 5 12/18/19 23 2:41 PM EDT documented as of this encounter Care Teams Anthropology Lecturer Relationship Specialty Start Date End Date Gricel Daniel MD [address] [place] [address] [phone] PCP - General Family Medicine 08/20/20 Kalina Coyle, PharmD [address] [place] [address] Pharmacist Internal Medicine 12/08/23 documented as of this encounter
--- OUTSIDE RECORDS SUMMARY | 2024-10-25 15:35 | XMS_ITS | Encounter Summary ---
Author Organization [employer] Address 75 [facility] 7t [place] [address] Care Team Providers Care Veterinarian Epidemiologist Name Role Phone Gricel Daniel MD Primary Care Provider [phone] Kalina Coyle PharmD Unavailable [phone] Reason for Visit * Reason Comments Med Refill Encounter Details Date Type Department Care Team ([facility] st Contact Info) Description 10/05/2023 Refill [facility] MEDICINE [address] [place], [place] [phone] Sammi Cortez MD [address] [place], [place] [phone] Type 2 diabetes mellitus with obesity ([facility]/HCC) ([facility]) Social History Tobacco Use Types Packs/Day Years [...] Description 10/26/2024 1:00 PM EDT Office Visit [facility] ADULT DENTAL [address] [place] [address] Bola Suárez 11/01/2024 11:00 AM EDT Medication Management [facility] MEDICINE [address] [place] [phone] Kalina Coyle PharmD [address] [place] [address] 01/14/2025 1:30 PM EDT Office Visit [address] [address] Gricel Daniel MD [address] [place] [address] documented as of this encounter Visit Diagnoses Diagnosis Type 2 diabetes mellitus with obesity (CMS/HCC) (CMS/HCC) documented in this encounter Additional Health Concerns Assessment Noted Time PHQ-9 Depression Total Score: 5 12/18/19 23 2:41 PM EDT documented as of this encounter Care Teams Veterinarian Epidemiologist Relationship Specialty Start Date End Date Gricel Daniel MD [address] [place] [address] PCP - General Family Medicine 08/20/20 Kalina Coyle, PharmD [address] [place] [address] Pharmacist Internal Medicine 12/08/23 documented as of this encounter
--- OUTSIDE RECORDS SUMMARY | 2024-10-25 15:35 | XMS_ITS | Encounter Summary ---
Author Organization [employer] Address 75 [facility] 7t [place] [address] Care Team Providers Care Translator Interpreter Name Role Phone rGicel Daniel MD Primary Care Provider [phone] Kalina Coyle PharmD Unavailable [phone] Reason for Visit * Reason Comments Med Refill Encounter Details Date Type Department Care Team ([facility] st Contact Info) Description 10/13/2023 Refill [facility] MEDICINE [address] [place], [place] [phone] Gricel Daniel MD [address] [place], [place] [phone] Type 2 diabetes mellitus with obesity ([facility]/HCC) ([facility]) Social History Tobacco Use Types Packs/Day Years [...] Description 10/26/2024 1:00 PM EDT Office Visit [facility] ADULT DENTAL [address] [place] [address] Bola Suárez 11/01/2024 11:00 AM EDT Medication Management [facility] MEDICINE [address] [place] [address] Kalina Coyle PharmD [address] [place] [address] 01/14/2025 1:30 PM EDT Office Visit [address] [address] Gricel Daniel MD [address] [place] [address] documented as of this encounter Visit Diagnoses Diagnosis Type 2 diabetes mellitus with obesity (CMS/HCC) (CMS/HCC) documented in this encounter Additional Health Concerns Assessment Noted Time PHQ-9 Depression Total Score: 5 12/18/19 23 2:41 PM EDT documented as of this encounter Care Teams Translator Interpreter Relationship Specialty Start Date End Date Gricel Daniel MD [address] [place] [phone] PCP - General Family Medicine 08/20/20 Kalina Coyle, PharmD [address] [place] [phone] Pharmacist Internal Medicine 12/08/23 documented as of this encounter
--- OUTSIDE RECORDS SUMMARY | 2024-10-25 15:35 | XMS_ITS | Encounter Summary ---
Author Organization [employer] Address 75 [facility] 7t [place] [address] Care Team Providers Care Tow Truck Driver Name Role Phone Gricel Daniel MD Primary Care Provider [phone] Kalina Coyle PharmD Unavailable Encounter Details Date Type Department Care Team (Late st Contact Info) Description 07/08/2023 Telephone [facility] MEDICINE [address] [place], [place] [phone] Gricel Daniel MD [address] [place], [place] [phone] Social History Tobacco Use Types Packs/Day Years [facility] [address] [place] [address] Bola Suárez 11/01/2024 11:00 AM EDT Medication Management [facility] [address] [place] [address] Kalina Coyle, PharmD [address] [place] [address] 01/14/2025 1:30 PM EDT Office Visit [facility] [address] [place] [address] Gricel Daniel MD [address] [place] [address] documented as of this encounter Visit Diagnoses Not on filedocumented in this encounter Additional Health Concerns Assessment Noted Time PHQ-9 Depression Total Score: 5 12/18/19 23 2:41 PM EDT documented as of this encounter Care Teams Tow Truck Driver Relationship Specialty Start Date End Date Gricel Daniel MD [address] [place] [address] PCP - General Family Medicine 08/20/20 Kalina Coyle, JiaD [address] [place] [address] Pharmacist Internal Medicine 12/08/23 Layla Hubbard Sales Representative Adding Machines 06/15/23 09/14/23 documented as of this encounter
--- OUTSIDE RECORDS SUMMARY | 2024-10-25 15:35 | XMS_ITS | Encounter Summary ---
Author Organization [employer] Address [address] [place] [address] 7t [place] [address] Care Team Providers Care Reprographics Associate Name Role Phone Gricel Daniel MD Primary Care Provider [phone] Kalina Coyle PharmD Unavailable [phone] Reason for Visit * Reason Onset Date Comments PT1 09/27/2022 Encounter Details Date Type Department Care Team ([facility] st Contact Info) Description 09/27/2022 Telephone [facility] MEDICINE [address] [place], [place] [phone] Gricel Daniel MD [address] [place], [place] [phone] PT1 Social History Tobacco Use Types Packs/Day [...] requesting a PT1 PT1 Name of facility: [facility] Specialty: Diabetes Appt Location: [address] [place] [address] Date: October 05, 2022 Time: 12:45 pm fax: n/a Phone: n/a wheelchair: n/a Typo Machine Operator: Yes documented in this encounter Plan of Treatment Upcoming Encounters Date Type Department Care Team (Late st Contact Info) Description 10/26/2024 1:00 PM EDT Office Visit [facility] ADULT DENTAL [address] [place] [address] Bola Suárez 11/01/2024 11:00 AM EDT Medication Management [address] [address] Kalina Coyle PharmD [address] [place] [address] 01/14/2025 1:30 PM EDT Office Visit [address] [address] Gricel Daniel MD [address] [place] [address] documented as of this encounter Visit Diagnoses Not on filedocumented in this encounter Care Teams Reprographics Associate Relationship Specialty Start Date End Date Gricel Daniel MD [address] [place] [phone] PCP - General Family Medicine 08/20/20 Kalina Coyle PharmD [address] [place] [phone] Pharmacist Internal Medicine 12/08/23 Layla Hubbard Telephone Solicitor Supervisor 06/15/23 09/14/23 documented as of this encounter
--- OUTSIDE RECORDS SUMMARY | 2024-10-25 15:36 | XMS_ITS | Encounter Summary ---
Author Organization [employer] Address 75 [facility] 7t [place] [address] Care Team Providers Care Needle Valve Operator Name Role Phone Gricel Daniel MD Primary Care Provider [phone] Kalina Coyle PharmD Unavailable [phone] Encounter Details Date Type Department Care Team (Late st Contact Info) Description 03/02/2024 Orders Only [facility] MEDICINE [address] [place], [place] [phone] Gricel Daniel MD [address] [place], [place] [phone] Muscle spasm (Primary Dx) Social History Tobacco [...] Description 10/26/2024 1:00 PM EDT Office Visit [facility] ADULT DENTAL [address] [place] [address] Bola Suárez 11/01/2024 11:00 AM EDT Medication Management [facility] MEDICINE [address] [place] [address] PuiaKingstonKalina, PharmD [address] [place] [address] 01/14/2025 1:30 PM EDT Office Visit [facility] MEDICINE [address] [place] [address] Gricel Daniel MD [address] [place] [address] documented as of this encounter Goals Goal [...] documented as of this encounter Care Teams Needle Valve Operator Relationship Specialty Start Date End Date Gricel Daniel MD [address] [place] [address] PCP - General Family Medicine 08/20/20 Kalina Coyle PharmD [address] [place] [address] Pharmacist Internal Medicine 12/08/23 documented as of this encounter
--- OUTSIDE RECORDS SUMMARY | 2024-10-25 15:36 | XMS_ITS | Clinical Summary ---
Author Organization [employer] Address [address] [place] [address] 7[address] [place] [address] Care Team Providers Care Quality Control Head Name Role Phone Gricel Daniel MD Primary Care Provider [phone] Kalina Coyle PharmD Unavailable [phone] Allergies Active Allergy Reactions Criticality Noted Date Comments Dust Mite Extract 08/17/2022 Gramineae Pollens 08/17/2022 Medications buPROPion XL (Wellbutrin XL) 150 MG 24 hr tablet Take 150 mg by mouth in the morning. Active divalproex (Depakote) 500 MG EC tablet TAKE 1 TABLET BY MOUTH EVERY MORNING AND 2 TABLETS BY MOUTH AT BEDTIME Active LORazepam (Ativan) 1 MG tablet TAKE 1 tablet by mouth twice a day as needed (take at onset of aggression or panic attacks ONLY) Active omeprazole (PriLOSEC) [address] capsule TAKE 1 CAPSULE BY MOUTH EVERY DAY BEFORE A MEAL Active paliperidone palmitate ER (Invega Sustenna) 234 MG/1.5ML suspension prefilled syringe 234mg IM monthly Active traZODone (Desyrel) 150 MG tablet Take 150 mg by mouth if needed at bedtime. Active Blood Glucose Monitoring Suppl (FreeStyle [place] Lite) w/Device kit USE TO TEST BLOOD SUGAR DIRECTED Active insulin pen needle 32G x 4 mm misc USE DIRECTED TO INJECT INSULIN FIVE TIMES DAILY Active ammonium lactate (Lac-Hydrin) 12 % lotion APPLY TO SOLES OF FEET DAILY AT BEDTIME, WEAR SOCKS TO BED Active hydrOXYzine HCl (Atarax) 50 MG tablet TAKE 1 TABLET BY MOUTH THREE TIMES DAILY NEEDED FOR ANXIETY OR PANIC ATTACK Active Petrolatum 42 % ointment Apply topically if needed. Active prazosin (Minipress) 1 MG capsule TAKE 2 CAPSULES BY MOUTH AT BEDTIME FOR NIGHTMARES Active Blood Glucose Monitoring Suppl (FreeStyle Lite) deviceIndicatio ns:Type 2 diabetes mellitus with hypoglycemia without coma, with long-term current use of insulin ([facility]) Inject under the skin 3 times daily. 1 each Active Antacid/Antigas 400-400-40 MG/10ML oral suspension TAKE 5ml BY MOUTH 5 TIMES a DAY NEEDED INDIGESTION Active buPROPion XL (Wellbutrin XL) 300 MG 24 hr tablet TAKE 1 TABLET BY MOUTH EVERY MORNING FOR DEPRESSION Active paliperidone (Invega) 3 MG 24 hr tablet TAKE 1 TABLET BY MOUTH EVERY DAY FOR 10 DAYS STARTING 7 DAYS BEFORE invega sustenna 234 MG INJECTION Active benztropine (Cogentin) 0.5 MG tablet TAKE 1 TABLET BY MOUTH TWICE DAILY FOR restlessness AND twitching Active Ciclopirox 0.77 % gel Active glucose blood (FREESTYLE LITE) test stripIndication s:Type 2 diabetes mellitus with hyperglycemia, with long-term current use of insulin (CMS/[facility]) Use to check blood sugar three times daily (before breakfast, 2 hrs after lunch & 2 hrs after dinner) as directed. 100 each Active Lancets miscIndications :Type 2 diabetes mellitus with hyperglycemia, with long-term current use of insulin (CMS/[facility]) Use to check blood sugar three times daily (before breakfast, 2 hrs after lunch & 2 hrs after dinner) as directed. 100 each Active budesonide-form oterol (Symbicort) 80-4.5 MCG/ACT inhaler Inhale 2 puffs every 12 (twelve) hours. 1 each Active polyethylene glycol, PEG, 3350 (MiraLax) 17 GM/SCOOP powderIndicatio ns:Constipation , unspecified constipation type Take 17 g by mouth if needed each day (constipation). 527 g 2 024 2024 Active docusate sodium (Colace) 100 MG capsuleIndicati ons:Constipatio n, unspecified constipation type Take 1 capsule (100 mg) by mouth if needed each day for constipation. 90 capsule 3 024 2024 Active mineral oil liquidIndicatio ns:Constipation , unspecified constipation type Take 15 mL by mouth if needed each day for constipation. 180 mL 12 024 2024 Active cyclobenzaprine (Flexeril) 5 MG tabletIndicatio ns:Muscle spasm Take one tablet (5mg) in the morning and two tablets (10mg) before bedtime as needed for muscle spasms. 90 tablet 2 Active Tirzepatide (Mounjaro) 7.5 MG/0.5ML solution pen-injector Inject 7.5 mg under the skin 1 (one) time per week. 2 mL 11 024 Active rosuvastatin (Crestor) 20 MG tablet TAKE 1 TABLET BY MOUTH EVERY DAY 90 tablet 3 024 Active insulin degludec (Tresiba FlexTouch) 200 UNIT/ML injectionIndica tions:Type 2 diabetes mellitus with hyperglycemia, with long-term current use of insulin ([facility]) INJECT 160 UNITS SUBCUTANEOUSLY ONCE DAILY. ROTATE INJECTION SITE. 27 mL 5 Active doxycycline (Vibramycin) 100 MG capsuleIndicati ons:Wound cellulitis Take 1 capsule (100 mg) by mouth 2 times daily for 5-7 days. Take with at least 8 ounces (large glass) of water, do not lie down for 30 minutes after. If wounds resolved after 5 days, may Discontinue medication 14 capsule Active naproxen (Naprosyn) 250 MG tabletIndicatio ns:Low back pain at multiple sites Take 1 tablet (250 mg) by mouth if needed in the morning and at bedtime (back pain). 60 tablet 3 024 2024 Active Alcohol Swabs (Alcohol Prep) padsIndications :Type 2 diabetes mellitus with hypoglycemia without coma, with long-term current use of insulin (CMS/HCC) Use as directed 100 each 11 025 Active fenofibrate micronized (Antara) 43 MG capsule TAKE 1 CAPSULE (43 MG) BY MOUTH ONCE PER DAY. 90 capsule 3 025 Active metFORMIN XR (Glucophage-XR) 500 MG 24 hr tabletIndicatio ns:Type 2 diabetes mellitus with obesity (CMS/HCC) (CMS/HCC) TAKE 2 TABLETS (1,000 MG) BY MOUTH WITH BREAKFAST. DO NOT CRUSH, CHEW, OR SPLIT. 60 tablet 025 Active metFORMIN XR (Glucophage-XR) 500 MG 24 hr tabletIndicatio ns:Type 2 diabetes mellitus with obesity (CMS/HCC) (CMS/HCC) Take 2 tablets (1,000 mg) by mouth with breakfast. Do not crush, chew, or split. 60 tablet 024 2024 Discontinued Active Problems Patient Care Coordination No te [...] (03/03/2023 10:11 AM EDT): I advise to mushroom picker medication for pain today and see [...] 08/17/2022 Type 2 diabetes mellitus with obesity ([facility]) 08/17/2022 Assessment & Plan (12/16/2023 8:12 AM [...] EST): Uncontrolled A1C 14.0 Continue followup at [facility] awaiting PA for Tirzepatide Continue Tresiba 160 units Increase semaglutide to 7mg daily, scripts sent to [facility] [address] Discussed trying to limit portion sizes, alternative choices to high sugar/high fat foods especially now that he is choosing his own foods [facility] Call podiatry to make appointment Assessment & Plan (07/13/2023 10:39 AM EST): Uncontrolled A1C 8.8 Continue followup at [facility] awaiting PA for Tirzepatide Continue Tresiba and Metformin, encouraged more regular daily compliance with medications Discussed trying to limit portion sizes, alternative choices to high sugar/high fat foods especially now that he is choosing his own foods more [facility] Call podiatry to make appointment Assessment & Plan (12/18/2022 10:22 AM EDT): Uncontrolled due to patient noncompliance with treatment. Increase Trulicity to 4.5 mg per week to achieve maximum benefit, while starting PA for Tirzepatide Continue Tresiba and Metformin, encouraged more regular daily compliance with medications Discussed trying to limit portion sizes, alternative choices to high sugar/high fat foods [facility] Call podiatry to make appointment Assessment & Plan (09/01/2022 1:09 PM EST): Uncontrolled due to patient noncompliance with treatment. Increase Trulicity to 3 mg per week. Continue Tresiba and Humalog same dose We discussed with him regarding importance of using medications as prescribed to avoid senior living complications. We discussed about healthier food choices [...] medication regimen, he will f/u today at [facility] medication refills and adjustments done [...] Encounters Date Type Department Care Team Description 10/25/2024 Orders Only GENERIC EXTERNAL DATA DEPARTMENT Provider, Generic External Data 10/16/2024 Telephone [facility] [address] [place] [address] Carol Ann Diaz, DELMA Care Coordination 10/11/2024 Telephone [facility] [address] [place] [address] Gricel Daniel MD RECALL 10/02/2024 Refill [facility] [address] [place] [address] Kalina Coyle PharmD Type 2 diabetes mellitus with obesity (CMS/HCC) (CMS/HCC) 09/26/2024 Telephone [facility] [address] [place] [phone] Gricel Daniel MD Appointment Request 09/26/2024 Telephone [facility] [address] [place] [phone] Griecl Daniel MD Med Refill 09/14/2024 Population Health Risk Score [facility] () Department [address] [place] [phone] Provider, Population Health Generic 09/10/2024 Telephone [facility] [address] [place] [phone] Gricel Daniel MD Care Management ([facility]- reschedule initial assessment. ) 09/10/2024 Refill [facility] [address] [place] [phone] Gricel Daniel MD 09/07/2024 Telephone [facility] [address] [place] [address] Gricel Daniel MD No Show 09/07/2024 Telephone [facility] [address] [place] [address] Gricel Daniel MD chartprep 09/06/2024 Patient Outreach [address] [phone] Gricel Daniel MD Care Coordination ([address] telephone call outreach) 09/05/2024 Telephone [facility] [address] [place] [phone] Gricel Daniel MD Nurse Triage 09/04/2024 Patient Outreach [facility] [address] [place] [phone] Gricel Daniel MD Care Coordination ([address] telephone call outreach) 09/04/2024 Patient Outreach [facility] [address] [place] [phone] Gricel Daniel MD Care Coordination ([address] telephone call outreach) 09/04/2024 Telephone [facility] [address] [place] [address] Gricel Daniel MD Care Management ([facility]- chart review) 09/03/2024 Orders Only GENERIC EXTERNAL DATA DEPARTMENT Provider, Generic External Data 08/24/2024 Patient Outreach [facility] [address] [place] [address] Haseeb Thompson Recovery Supports from Last 3 Months Immunizations Name Administration [...] 06/20/2024 4:58 PM EST Plan of Treatment Upcoming Encounters Date Type Department Care Team (Late st Contact Info) Description 10/26/2024 1:00 PM EDT Office Visit [facility] [address] [place] [address] Jose Armando Bola 11/01/2024 11:00 AM EDT Medication Management [facility] [address] [place], [place] [phone] Kalina Coyle, JiaD [address] [place] [address] 01/14/2025 1:30 PM EDT Office Visit [facility] [address] [place], [place] [phone] Gricel Daniel MD [address] [place], [place] [phone] Health Maintenance Due Date Last Done Comments [...] exists Depression Screening 07/08/2024 07/08/2023, 12/18/19 23 Dental X-Ray: B[facility]ings 10/06/2024 10/06/19 24, 06/20/2018, 08/05/2016, Additional history exists Lipid Panel 12/13/2024 12/14/2023, 01/20/2022 Tobacco Screening 12/13/2024 12/14/2023 Chlamydia and Gonorrhea Screening 08/23/2025 08/23/2024 Diabetes: Urine Protein Screening 08/23/2025 08/23/2024, 12/14/2023 SDOH Screening 09/04/2025 09/04/2024 Eye Exam 10/27/2025 10/28/2023, 10/03, 10/28/2023, Additional [...] 24 2:35 PM EDT) No Puia, Kalina, Bisi Record your blood sugar as directed Result Component No Kalina Coyle, PharmJacqui Procedures Procedure Name Priority Date/Time Associated Diagnosis Comments DRUG MONITOR, PANEL 1, SCREEN, URINE Routine 10/25/2024 1:14 PM EDT STREP A NUCLEIC ACID Routine 09/03/2024 11:27 AM EST ALBUMIN, RANDOM URINE W/CREATININE Routine 08/23/2024 11:13 AM EST Type 2 diabetes mellitus with obesity (CMS/HCC) ([facility]) CHLAMYDIA/N. GONORRHOEAE RNA, TMA, UROGENITAL Routine 08/23/2024 11:12 AM EST Type 2 diabetes mellitus with obesity (CMS/HCC) ([facility]) POCT GLYCATED HEMOGLOBIN, TOTAL Routine 03/21/2024 2:35 PM EDT Type 2 diabetes mellitus with obesity (CMS/HCC) ([facility]) LIPID PANEL, STANDARD Routine 12/14/2023 10:17 AM EDT Type 2 diabetes mellitus with hyperglycemia, with long-term current use of insulin ([facility]) PANORAMIC RADIOGRAPHIC IMAGE Routine 10/06/2023 8:30 [...] Relevant to Health Maintenance Results * (ABNORMAL) Drug Monitoring, Panel 1, Screen, Urine (10/25/2024 1:14 PM EDT) Pathologist [facility] Opiate Screen Urine Not Detected Not Detect [facility] Comment:Opiate cut-off is 30 0 ng/mL.Positive results are unconfirmed and should not be used fornon-medical purposes. Barbiturates, Urine Not Detected Not Detect [facility] Comment:Barbiturate cut-off is 200 ng/mL.Positive results are unconfirmed and should not be used fornon-medical purposes. Phencyclidine Screen Urine Not Detected Not Detect [facility] Comment:Phencyclidine cut-of f is 25 ng/mL.Positive results are unconfirmed and should not be used fornon-medical purposes. Amphetamine Screen Urine Not Detected Not Detect [facility] Comment:Amphetamine cut-off is 1000 ng/mL.Positive results are unconfirmed and should not be used fornon-medical purposes. Benzodiazepines Screen Urine Not Detected Not Detect [facility] Comment:Benzodiazepine cut-o ff is 200 ng/mL.Positive results are unconfirmed and should not be used fornon-medical purposes. Cocaine Screen Urine Not Detected Not Detect [facility] Comment:Cocaine cut-off is 3 00 ng/mL.Positive results are unconfirmed and should not be used fornon-medical purposes. Cannabinoid Screen Urine POSITIVE(A) Not Detect [facility] Comment:Cannabinoid cut-off is 50 ng/mL.Positive results are unconfirmed and should not be used fornon-medical purposes. Methadone Screen, Urine Not Detected Not Detect ng/mL [facility] Comment:Methadone cut-off is 300 ng/mL.Positive results are unconfirmed and should not be used fornon-medical purposes. FENTANYL URINE Not Detected Not Detect [facility] Comment:Fentanyl cut-off is 1 ng/mL.Positive results are unconfirmed and should not be used fornon-medical purposes. Oxycodone Urine Screen Not Detected Not Detect ng/mL [facility] Comment:Oxycodone cut-off is 100 ng/mL.Positive results are unconfirmed and should not be used fornon-medical purposes. Buprenorphine Screen Not Detected Not Detect ng/mL [facility] Comment:Buprenorphine cut-of f is 5 ng/mL.Positive results are unconfirmed and should not be used fornon-medical purposes. 10/25/2024 1:14 PM EDT 10/25/2024 1:18 PM EDT Generic External Data Provider LAB URINE ORDERAB LES Final Result Performing Organization Address [facility] de Phone Number [facility] [address] [place] [phone] * Strep A Nucleic Acid (09/03/2024 11:27 AM EST) IDNOW SERIAL# [id number] [facility] Strep A Nucleic Acid Negative Negative [facility] Comment:All test results mus t be [...] GENERAL ORDERABLES Final Result Performing Organization Address [facility] Phone Number [facility] [address] [place] [phone] * Albumin, Random Urine W/Creatinine (08/23/2024 11:13 AM EST) Creatinine, Urine 35.61 mg/dL [facility] Microalbumin Urine 5.0 mg/L [facility] Microalbum Creatinine Ratio Ur 14.0 <30 ug/mg cr [facility] Comment:Albumin/Creatinine R atio Reference Ranges: Normal: < 30 ug/mg creatinine Microalbuminuria: 30 - 300 ug/mg creatinineClinical Albuminuria: > 300 ug/mg creatinine Urine (Urine, Random) 08/23/2024 11:13 AM EST 08/23/2024 1:11 PM EST Gricel Daniel MD LAB URINE ORDERABLES Final Res ult [facility] [address] [place] [address] [phone] * Chlamydia/N. Gonorrhoeae RNA, TMA, Urogenitial (08/23/2024 11:12 AM EST) CT PCR NOT DETECTED Not Detect. [facility] Comment:A not detected test result does [...] psychologicalconsequences. NG PCR NOT DETECTED Not Detect. [facility] Comment:A not detected test result does [...] AM EST 08/23/2024 4:46 PM EST Narrative [facility] - 08/23/2024 4:46 PM EST Urine us Gricel Daniel MD LAB MICROBIOLOGY - GENERAL ORD ERABLES Final Result [facility] [address] [place], [place] [phone] * (ABNORMAL) POCT HGB A1C (03/21/2024 2:35 PM EDT) Hemoglobin A1C 13.4(A) 4.0 - 6.0 % QC Media Lot # [id number] Lot# Expiration Date Blood 03/21/2024 2:35 PM EDT Result [facility] Gricel Daniel MD POINT OF CARE TEST ENTER/EDIT ORDERABLES Final Result * (ABNORMAL) Lipid Panel, Standard (12/14/2023 10:17 AM EDT) Triglycerides 121 <150 mg/dL [facility] Comment:Desirable Triglyceri de: less than 150 mg/dLBorderline High Triglyceride 150-199 mg/dLHigh Triglyceride: 200-499 mg/dLVery High Triglyceride: greater than or equal to 5OO mg/dL Cholesterol 126 <200 mg/dL [facility] Comment:Desirable Cholestero l: less than 200 mg/dLBorderline High Cholesterol: 200-239 mg/dLHigh Cholesterol: greater than 239 mg/dL LDL Cholesterol Calculated 71 <100 mg/dL [facility] Comment:Desirable LDL: less than 100 mg/dLNear Optimal/Above Optimal LDL: 110- 129 mg/dLBorderline High LDL: 130-159 mg/dLHigh LDL: 160-189 mg/dLVery High LDL: greater than or equal to 190 mg/dL HDL Cholesterol 31(L) >40 mg/dL [facility] Comment:Desirable HDL: great er than 40 mg/dL Note: This HDL assay may give artificially low results in patients with liver disease. Blood Venous blood specimen / Unknown 12/14/2023 10:17 AM EDT 12/14/2023 11:15 AM EDT Gricel Daniel MD LAB BLOOD ORDERABLES Final Res ult [facility] [address] [place] [address] [phone] * HEPATITIS C AB W/REFL TO HCV RNA, QN, PCR (01/20/2022 3:57 PM EDT) HEPATITIS C ANTIBODY NON-REACT TAQUERIA NON-REACT TAQUERIA [facility] INDEX 0.10 <1.00 [facility] Comment: ?? HCV antibody was non-reactive. There is no laboratory ?? evidence of HCV infection. ?? In most cases, no further action is required. However, if recent HCV exposure is suspected, a test for HCV RNA (test code 78158) is suggested. ?? For additional information please refer to http://Pedius.Cylex/faq/OZO30m9 (This link is being provided for informational/ educational purposes only.) ?? 01/20/2022 3:57 PM EDT [facility] SMOKE CONTROL SUPERVISOR HISTORICAL/NON ORDERABLE LABS Final Result [facility] [address] * HIV 1/2 ANTIGEN/ANTIBODY,FOURTH GENERATION W/RFL (01/20/2022 3:57 PM EDT) HIV-1/2 ANTIGEN AND ANTIBODIES, 4TH GENERATION W/ REFLEX NON-REACT TAQUERIA NON-REACT TAQUERIA [facility] Comment: HIV-1 antigen and HIV-1/HIV-2 [...] ? For additional information please refer to http://education.Cylex/faq/IFM849 (This link is being provided for informational/ educational purposes only.) ? The performance of this assay has not been clinically validated in patients less than 2 years old. ?? 01/20/2022 3:57 PM EDT [facility] SMOKE CONTROL SUPERVISOR LAB BLOOD ORDERABLES Final Re sult [facility] [address] from Last 3 Months or Most Recently Relevant to Health Maintenance [place] [address] [place] [address] C3 [facility] MEDICAID STAND ADULT Care Teams Quality Control Head Relationship Specialty Start Date End Date Gricel Daniel MD [address] [place] [address] PCP - General Family Medicine 08/20/20 Kalina Coyle PharmD [address] [place] [phone] Pharmacist Internal Medicine 12/08/23
--- OUTSIDE RECORDS SUMMARY | 2024-10-25 15:36 | XMS_ITS | Encounter Summary ---
Author Organization [employer] Address [address] [place] [address] [address] [place] [address] Care Team Providers Care Quality Systems Engineer Name Role Phone Gricel Daniel MD Primary Care Provider [phone] Kalina Coyle PharmD Unavailable [phone] Reason for Referral * Consultation (Routine) - Closed Specialty Diagnoses / Procedures Referred By Contdelbert t Referred To Contact Physical Therapy Diagnoses Low back pain at multiple sites Gricel Daniel MD [address] [place] [address] Phone: tel: fax: Physical Therapy, AT [address] [place] [address] Dr [place] Phone: tel: fax: Referral ID Status Reason Start Date Expiration Date V isits Requested Visits Authorized [id number] Closed Specialty Services Required 03/22/2024 03/22/2025 20 20 Encounter Details Date Type Department Care Team (Late st Contact Info) Description 02/15/2024 Orders Only [facility] [address] [place], [place] [phone] Gricel Daniel MD [address] [place], [place] [phone] Low back pain at multiple sites (Primary [...] Description 10/26/2024 1:00 PM EDT Office Visit [facility] ADULT DENT[facility] [address] [place] [address] Bola Suárez 11/01/2024 11:00 AM EDT Medication Management [facility] [address] [place] [phone] Kalina Coyle, JiaD [address] [place] [address] 01/14/2025 1:30 PM EDT Office Visit [facility] [address] [place] [phone] Gricel Daniel MD [address] [place] [phone] Scheduled Referrals Name Type Priority Associated Diagnoses [...] documented as of this encounter Care Teams Quality Systems Engineer Relationship Specialty Start Date End Date Gricel Daniel MD [address] [place] [phone] PCP - General Family Medicine 08/20/20 Puia, Kalina, PharmD [address] [place] [phone] Pharmacist Internal Medicine 12/08/23 documented as of this encounter
--- OUTSIDE RECORDS SUMMARY | 2024-10-25 15:36 | XMS_ITS | Encounter Summary ---
Author Organization [employer] Address [address] [place] [address] 7t [place] [address] Care Team Providers Care Caregiver Services Home Name Role Phone Gricel Daniel MD Primary Care Provider [phone] Kalina Coyle PharmD Unavailable [phone] Reason for Referral * Consultation (Routine) - Authorized Specialty Diagnoses / Procedures Referred By Contac t Referred To Contact Pharmacy Diagnoses Type 2 diabetes mellitus with obesity (CMS/HCC) ([facility]/HCC) Gricel Daniel MD [address] [place] [address] Phone: tel: fax: Referral ID Status Reason Start Date Expiration Date Visits Requested Visits Authorized [id number] Authorized Consult and Treat 04/12/2024 04/12/2025 6 6 Encounter Details Date Type Department Care Team (Late st Contact Info) Description 04/12/2024 Orders Only [facility] [address] [place], [place] [phone] Gricel Daniel MD [address] [place], [place] [phone] Type 2 diabetes mellitus with obesity (CMS/HCC) [...] Description 10/26/2024 1:00 PM EDT Office Visit [facility] [address] [place] [address] Bola Suárez 11/01/2024 11:00 AM EDT Medication Management [facility] [address] [place] [phone] Kalina Coyle, PharmD [address] [place] [address] 01/14/2025 1:30 PM EDT Office Visit [facility] [address] [place] [address] Gricel Daniel MD [address] [place] [address] [phone] Scheduled Referrals Name Type Priority Associated Diagnoses Orde r Schedule Referral to Pharmacy CDTM Outpatient Referral Routine Type 2 diabetes mellitus with obesity ([facility]) ([facility]) Ordered: 04/12/2024 documented as of this [...] Diagnosis Type 2 diabetes mellitus with obesity ([facility]) ([facility])- Primary documented in this encounter Additional Health Concerns Assessment Noted Time PHQ-9 Depression Total Score: 5 12/18/19 23 2:41 PM EDT documented as of this encounter Care Teams Caregiver Services Home Relationship Specialty Start Date End Date Gricel Daniel MD [address] [place] [address] PCP - General Family Medicine 08/20/20 Kalina Coyle, PharmD [address] [place] [address] Pharmacist Internal Medicine 12/08/23 documented as of this encounter
--- OUTSIDE RECORDS SUMMARY | 2024-10-25 15:36 | XMS_ITS | Encounter Summary ---
Author Organization [employer] Address [address] [place] [address] 7t [place] [address] Care Team Providers Care Editor Dictionary Name Role Phone Gricel Daniel MD Primary Care Provider [phone] Kalina Coyle PharmD Unavailable [phone] Encounter Details Date Type Department Care Team (Late st Contact Info) Description 08/19/2022 Orders Only [facility] [address] [place], [place] [phone] Sammi Cortez MD [address] [place], [place] [phone] Type 2 diabetes mellitus with obesity (CMS/HCC) [...] Description 10/26/2024 1:00 PM EDT Office Visit [facility] [address] [place] [address] Bola Suárez 11/01/2024 11:00 AM EDT Medication Management [facility] [address] [place] [address] Kalina Coyle PharmD [address] [place] [address] 01/14/2025 1:30 PM EDT Office Visit [facility] [address] [place] [address] Gricel Daniel MD [address] [place] [address] [phone] documented as of this encounter Visit Diagnoses Diagnosis Type 2 diabetes mellitus with obesity (CMS/HCC) (CMS/HCC)- Primary documented in this encounter Care Teams Editor Dictionary Relationship Specialty Start Date End Date Gricel Daniel MD [address] [place] [address] [phone] PCP - General Family Medicine 08/20/20 Kalina Coyle PharmD [address] [place] [address] Pharmacist Internal Medicine 12/08/23 Layla Hubbard Clinical Laboratory Aides Teacher 06/15/23 09/14/23 documented as of this encounter
== END 2024-10-25 13:50 | disposition home or self-care (01) ==
PROVIDERS: Physician Assistant; Emergency Provider Emergency Medicine; PCP General Practice
DX: F12.90 Cannabis use, unspecified, uncomplicated (principal); E11.9 Type 2 diabetes mellitus without complications; J45.909 Unspecified asthma, uncomplicated; F25.0 Schizoaffective disorder, bipolar type; F60.3 Borderline personality disorder; F43.10 Post-traumatic stress disorder, unspecified; F17.200 Nicotine dependence, unspecified, uncomplicated; Z79.84 Long term (current) use of oral hypoglycemic drugs; Z79.899 Other long term (current) drug therapy
CPT/HCPCS: 80307; 99282

== ENCOUNTER 2024-11-09 08:38 | Emergency (ER) | payer MEDICAID, SELFPAY ==
--- NOTE | ~2024-11-09 | XR_ITS ---
EXAMINATION: XR SHOULDER 2 OR MORE VIEWS LEFT HISTORY: fall COMPARISON: Comparison is made with the prior examination dated 10/31/2022. FINDINGS: Three views of the left shoulder are submitted. Osseous mineralization is normal. There is no fracture or dislocation. The glenohumeral and acromioclavicular joint spaces are preserved. The soft tissues are unremarkable. XR/XR shoulder LT min 2V IMPRESSION: Unremarkable examination of the left shoulder. Electronically signed by: Kristian Flores MD 11/09/2024 09:45 AM EDT
--- NOTE | ~2024-11-09 | XR_ITS ---
EXAMINATION: XR KNEE 1-2 VIEWS LEFT HISTORY: fall COMPARISON: Comparison is made with the prior examination dated 05/11/2022. FINDINGS: AP and lateral views of the left knee are submitted. Osseous mineralization is normal. There is no fracture or dislocation. The joint spaces are preserved. The soft tissues are unremarkable. There is no joint effusion. XR/XR knee LT 2V IMPRESSION: Unremarkable examination of the left knee. Electronically signed by: Kristian Flores MD 11/09/2024 09:44 AM EDT
--- NOTE | ~2024-11-09 | XR_ITS ---
EXAMINATION: XR LUMBAR SPINE 2-3 VIEWS HISTORY: fall. Pain COMPARISON: Comparison is made with the prior examination dated 12/14/2023. FINDINGS: AP, lateral, and coned down views of the lumbar spine are submitted. Osseous mineralization is normal. Five nonrib-bearing lumbar vertebral bodies are identified, maintaining normal height and alignment without evidence of fracture or spondylolisthesis. The intervertebral disc spaces are preserved. The posterior elements are intact. The visualized paraspinal soft tissues are unremarkable. XR/XR lumbar spine 2-3V IMPRESSION: Unremarkable examination of the lumbar spine. Electronically signed by: Kristian Flores MD 11/09/2024 09:48 AM EDT
--- NOTE | ~2024-11-09 | XR_ITS ---
EXAMINATION: XR THORACIC SPINE 2 VIEWS HISTORY: fall pain COMPARISON: There are no prior studies for comparison. FINDINGS: AP and lateral views of the thoracic spine are submitted. Osseous mineralization is normal. The vertebral bodies maintain normal height and alignment without evidence of fracture or subluxation. The intervertebral disc spaces are preserved. The visualized paraspinal soft tissues are unremarkable. XR/XR thoracic spine 2V IMPRESSION: Unremarkable examination of the thoracic spine. Electronically signed by: Kristian Florse MD 11/09/2024 09:46 AM EDT
[2024-11-09 08:47] VITALS: BP 120/77; PULSE 89; RESP 16; TEMP 36.3; O2SAT 97; BMI 55.7
--- OUTSIDE RECORDS SUMMARY | 2024-11-09 09:10 | XMS_ITS | Encounter Summary ---
Author Organization [employer] Address [address] [facility] 7t [place] [address] Care Team Providers Care Laboratory Veterinarian Name Role Phone Gricel Daniel MD Primary Care Provider Kalina Coyle PharmD Unavailable [phone] Reason for Visit * Reason Comments Med Refill Encounter Details Date Type Department Care Team ([facility] st Contact Info) Description 10/13/2023 Refill [facility] [address] [place], [place] [phone] Gricel Daniel MD [address] [place], [place] [phone] Type 2 diabetes mellitus with obesity ([facility]/HCC) ([facility]) Social History Tobacco Use [...] Care Team (Late st Contact Info) Description 12/05/2024 2:30 PM EDT Medication Management [facility] [address] [place] [address] Kalina Coyle PharmD [address] [place] [address] 01/14/2025 1:30 PM EDT Office Visit [facility] [address] [place] [address] Gricel Daniel MD [address] [place] [address] documented as of this encounter Visit Diagnoses Diagnosis Type 2 diabetes mellitus with obesity (CMS/HCC) ([facility]/HCC) documented in this encounter Additional Health Concerns Assessment Noted Time PHQ-9 Depression Total Score: 5 12/18/19 23 2:41 PM EDT documented as of this encounter Care Teams Laboratory Veterinarian Relationship Specialty Start Date End Date Gricel Danile MD [address] [place] [address] [phone] PCP - General Family Medicine 08/20/20 Kalina Coyle PharmD [address] [place] [address] Pharmacist Internal Medicine 12/08/23 documented as of this encounter
--- OUTSIDE RECORDS SUMMARY | 2024-11-09 09:10 | XMS_ITS | Encounter Summary ---
Author Organization [employer] Address [address] [facility] 7t [place] [address] Care Team Providers Care Wic Site Coordinator Name Role Phone Gricel Daniel MD Primary Care Provider [phone] Kalina Coyle PharmD Unavailable Reason for Visit * Reason Onset Date Comments Appointment Request 09/26/2024 Encounter Details Date Type Department Care Team ([facility] st Contact Info) Description 09/26/2024 Telephone [facility] MED[facility]INE [address] [place], [place] [phone] Gricel Daniel MD 230 [place], [place] [phone] Appointment Request Social History Tobacco Use Types [...] Description 12/05/2024 2:30 PM EDT Medication Management [facility] MEDICINE [address] [place] [address] Puia, Kalina, PharmD [address] [place] [address] 01/14/2025 1:30 PM EDT Office Visit [facility] [address] [place] [address] Gricel Daniel MD [address] [place] [address] [phone] documented as of this encounter Goals Goal Patient Goal Type Associated Problems Recent Progress Patient-Stated? Author Drink less soda, juice, and other sugary beverages Diet No Puia, Kalina, PharmD Hemoglobin A1c < 7 Result Component 13.6(11/02/19 2:39 PM EDT) No Puia, Kalina, PharmD Record your blood sugar as directed Result Component No Kalina Coyle, PharmD documented as of this encounter Visit Diagnoses Not on filedocumented in this encounter Additional Health Concerns Assessment Noted Time PHQ-9 Depression Total Score: 5 12/18/19 23 2:41 PM EDT documented as of this encounter Care Teams Wic Site Coordinator Relationship Specialty Start Date End Date Gricel Daniel MD [address] [place] [address] PCP - General Family Medicine 08/20/20 Kalina Coyle, PharmD [address] [place] [address] Pharmacist Internal Medicine 12/08/23 documented as of this encounter
--- OUTSIDE RECORDS SUMMARY | 2024-11-09 09:10 | XMS_ITS | Encounter Summary ---
Author Organization [employer] Address 75 [facility] 7t [place] [address] Care Team Providers Care Patients Transporter Name Role Phone Gricel Daniel MD Primary Care Provider [phone] Kalina Coyle PharmD Unavailable [phone] Reason for Visit * Reason Onset Date Comments Med Refill 09/26/2024 Encounter Details Date Type Department Care Team ([facility] st Contact Info) Description 09/26/2024 Telephone [facility] [address] [place], [place] [phone] Gricel Daniel MD 230 [place], [place] [phone] Med Refill Social History Tobacco Use Types [...] 2:11 PM EDT Med[facility] refills please advise patient to call pharmacy and transfer script to [facility]. * Telephone Encounter - Vannessa Mcdaniel - 09/26/2024 2:08 PM EDT Images from the original note were not included. TC from pt requesting medication refill. Medications needing refill : insulin degludec (Tresiba FlexTouch) 200 UNIT/ML injection To be sent to: [facility] - [place], [place] - [address] documented in this encounter Plan of Treatment Upcoming Encounters Date Type Department Care Team (Late st Contact Info) Description 12/05/2024 2:30 PM EDT Medication Management [facility] [address] [place] [address] Kalina Coyle, PharmD 230 [place] [address] 01/14/2025 1:30 PM EDT Office Visit [facility] [address] [place] [address] Gricel Daniel MD [address] [place] [address] documented as of this encounter Goals Goal Patient Goal Type Associated Problems Recent Progress Patient-Stated? Author Drink less soda, juice, and other sugary beverages Diet No PuiaKalina, PharmD Hemoglobin A1c < 7 Result Component 13.6(11/02/19 25 2:39 PM EDT) No Puia, Kalina, PharmD Record your blood sugar as directed Result Component No Puia, Kalina, PharmD documented as of this encounter Visit Diagnoses Not on filedocumented in this encounter Additional Health Concerns Assessment Noted Time PHQ-9 Depression Total Score: 5 12/18/19 23 2:41 PM EDT documented as of this encounter Care Teams Patients Transporter Relationship Specialty Start Date End Date Gricel Daniel MD [address] [place] [address] PCP - General Family Medicine 08/20/20 Kalina Coyle, PharmD [address] [place] [address] Pharmacist Internal Medicine 12/08/23 documented as of this encounter
--- OUTSIDE RECORDS SUMMARY | 2024-11-09 09:10 | XMS_ITS | Encounter Summary ---
Author Organization [employer] Address 75 [facility] 7t [place] [address] Care Team Providers Care Brewmaster Name Role Phone Gricel Daniel MD Primary Care Provider [phone] Kalina Coyle PharmD Unavailable [phone] Reason for Visit * Reason Comments Med Refill Encounter Details Date Type Department Care Team ([facility] st Contact Info) Description 10/05/2023 Refill [facility] MEDICINE 230 [place], [place] [phone] Sammi Cortez MD [address] [place], [place] [phone] Type 2 diabetes mellitus with obesity ([facility]/HCC) ([facility]) Social History Tobacco Use Types Packs/Day Years [...] Description 12/05/2024 2:30 PM EDT Medication Management [facility] MEDICINE [address] [place] [phone] Kalina Coyle PharmD [address] [place] [address] 01/14/2025 1:30 PM EDT Office Visit [facility] MED[facility]INE [address] [place] [address] Gricel Daniel MD [address] [place] [address] documented as of this encounter Visit Diagnoses Diagnosis Type 2 diabetes mellitus with obesity (CMS/HCC) ([facility]/HCC) documented in this encounter Additional Health Concerns Assessment Noted Time PHQ-9 Depression Total Score: 5 12/18/19 23 2:41 PM EDT documented as of this encounter Care Teams Brewmaster Relationship Specialty Start Date End Date Gricel Daniel MD [address] [place] [address] [phone] PCP - General Family Medicine 08/20/20 Kalina Coyle PharmD [address] [place] [address] [phone] Pharmacist Internal Medicine 12/08/23 documented as of this encounter
--- OUTSIDE RECORDS SUMMARY | 2024-11-09 09:11 | XMS_ITS | Encounter Summary ---
Author Organization [employer] Address [address] [place] [address] 7t [place] [address] Care Team Providers Care Human Resources Intern Name Role Phone Gricel Daniel MD Primary Care Provider [phone] Kalina Coyle PharmD Unavailable [phone] Reason for Visit * Reason Onset Date Comments PT1 09/27/2022 Encounter Details Date Type Department Care Team ([facility] st Contact Info) Description 09/27/2022 Telephone [facility] MED[facility]INE 230 [place], [place] [phone] Gricel Daniel MD 230 [place] [address] PT1 Social History Tobacco Use Types Packs/Day [...] requesting a PT1 PT1 Name of facility: [facility] Specialty: Diabetes Appt Location: [address] [place] [address] Date: October 05, 2022 Time: 12:45 pm fax: n/a Phone: n/a wheelchair: n/a Pilot Boat Operator: Yes documented in this encounter Plan of Treatment Upcoming Encounters Date Type Department Care Team (Late st Contact Info) Description 12/05/2024 2:30 PM EDT Medication Management [facility] MED[facility] [address] [place] [phone] Kalina Coyle PharmD [address] [place] [address] 01/14/2025 1:30 PM EDT Office Visit [facility] [address] [place] [address] Gricel Daniel MD [address] [place] [address] documented as of this encounter Visit Diagnoses Not on filedocumented in this encounter Care Teams Human Resources Intern Relationship Specialty Start Date End Date Gricel Daniel MD [address] [place] [address] PCP - General Family Medicine 08/20/20 Kalina Coyle PharmD [address] [place] [address] Pharmacist Internal Medicine 12/08/23 Layla Hubbard Finance Associate 06/15/23 09/14/23 documented as of this encounter
--- OUTSIDE RECORDS SUMMARY | 2024-11-09 09:11 | XMS_ITS | Encounter Summary ---
Author Organization [employer] Address [address] [facility] 7t [place] [address] Care Team Providers Care Negative Stripper Name Role Phone Gricel Daniel MD Primary Care Provider [phone] Kalina Coyle PharmD Unavailable [phone] Encounter Details Date Type Department Care Team (Late st Contact Info) Description 09/19/2023 Orders Only [facility] 230 [place], [place] [phone] Gricel Daniel MD 230 [place], [place] [phone] Chronic midline low back pain without sciatica [...] Description 12/05/2024 2:30 PM EDT Medication Management [facility] [address] [place] [address] 00014 Kalina Coyle, PharmD [address] [place] [address] 01/14/2025 1:30 PM EDT Office Visit [facility] MED[facility] [address] [place] [address] Gricel Daniel MD [address] [place], [place] [phone] documented as of this encounter Procedures Procedure [...] EDT Narrative 12/27/2023 9:43 AM EDT ? [facility] ?[address] ?[place] [address] ?XRay Report ? Signed ? Patient: Huseyin,Williams L ?MR#: [id number] ?? 13 ? : 2000 ?Acct:[id number] ? Age/Sex: 23 / M ?ADM Date: 06/12/24 ? Loc: HO.HHCL ? Attending Dr: Gricel Daniel MD ? Ordering Physician: Gricel Daniel ?? Date of Service: 12/14/23 ?? Procedure(s): XR lumbar spine 4V min ?? Accession Number(s): [id number] ? cc: Gricel Daniel ? EXAMINATION: ?? [...] 0940 ? DD/ 1101 ? TD/TT: ? Student Support Advisor: ? Procedure Note Jazmín Gallegos - 12/27/[address] [address] XRay Report Signed Patient: Williams Fontanez LMR#: [id number] 13 : 2000Acct:[id number] Age/Sex: 23 / MADM Date: 12/14/23 Loc: HO.HHCL Attending Dr: Gricel Daniel MD Ordering Physician: Gricel Daniel Date of Service: 12/14/23 Procedure(s): XR lumbar spine 4V min Accession Number(s): [id number] cc: Gricel Daniel EXAMINATION: XR LUMBOSACRAL SPINE [...] in OV> 12/27/23 0940 DD/ 1101 TD/TT: Student Support Advisor: Gricel Daniel MD IMG XR PROCEDURES Edited Resul t - Final documented in this encounter Visit Diagnoses Diagnosis Chronic midline low back pain without sciatica- Primary documented in this encounter Additional Health Concerns Assessment Noted Time PHQ-9 Depression Total Score: 5 12/18/19 23 2:41 PM EDT documented as of this encounter Care Teams Negative Stripper Relationship Specialty Start Date End Date Gricel Daniel MD [address] [place] [address] PCP - General Family Medicine 08/20/20 Kalina Coyle PharmD [address] [place] [address] Pharmacist Internal Medicine 12/08/23 documented as of this encounter
--- OUTSIDE RECORDS SUMMARY | 2024-11-09 09:11 | XMS_ITS | Encounter Summary ---
Author Organization [employer] Address 75 [facility] 7t [place] [address] Care Team Providers Care Information Technology Account Manager Name Role Phone Gricel Daniel MD Primary Care Provider [phone] Kalina Coyle PharmD Unavailable [phone] Encounter Details Date Type Department Care Team (Late st Contact Info) Description 03/02/2024 Orders Only [facility] MED[facility]INE 230 [place], [place] [phone] Gricel Daniel MD 230 [place], [place] [phone] Muscle spasm (Primary Dx) Social History Tobacco [...] Description 12/05/2024 2:30 PM EDT Medication Management [facility] [address] [place] [address] PuiaKingstonKalina, PharmD [address] [place] [address] 01/14/2025 1:30 PM EDT Office Visit [facility] [address] [place] [address] Gricel Daniel MD [address] [place] [address] [phone] documented as of this encounter Goals Goal [...] of this encounter Care Teams Information Technology Account Manager Relationship Specialty Start Date End Date Gricel Daniel MD [address] [place] [address] PCP - General Family Medicine 08/20/20 Kalina Coyle, JiaD [address] [place] [address] Pharmacist Internal Medicine 12/08/23 documented as of this encounter
--- OUTSIDE RECORDS SUMMARY | 2024-11-09 09:11 | XMS_ITS | Clinical Summary ---
Author Organization [employer] Address [address] [facility] [address]t [place] [address] Care Team Providers Care Service Shop Foreman Name Role Phone Gricel Daniel MD Primary Care Provider [phone] Kalina Coyle PharmD Unavailable [phone] Allergies Active Allergy Reactions Criticality Noted Date Comments Dust Mite Extract 08/17/2022 Gramineae Pollens 08/17/2022 Medications buPROPion XL (Wellbutrin XL) 150 MG 24 hr tablet Take 150 mg by mouth in the morning. 022 Active divalproex (Depakote) 500 MG EC tablet TAKE 1 TABLET BY MOUTH EVERY MORNING AND 2 TABLETS BY MOUTH AT BEDTIME 023 Active LORazepam (Ativan) 1 MG tablet TAKE 1 tablet by mouth twice a day as needed (take at onset of aggression or panic attacks ONLY) 023 Active omeprazole (PriLOSEC) [address] capsule TAKE 1 CAPSULE BY MOUTH EVERY DAY BEFORE A MEAL 022 Active paliperidone palmitate ER (Invega Sustenna) 234 MG/1.5ML suspension prefilled syringe 234mg IM monthly 022 Active traZODone (Desyrel) 150 MG tablet Take 150 mg by mouth if needed at bedtime. 023 Active ammonium lactate (Lac-Hydrin) 12 % lotion APPLY TO SOLES OF FEET DAILY AT BEDTIME, WEAR SOCKS TO BED 023 Active hydrOXYzine HCl (Atarax) 50 MG tablet TAKE 1 TABLET BY MOUTH THREE TIMES DAILY NEEDED FOR ANXIETY OR PANIC ATTACK 023 Active Petrolatum 42 % ointment Apply topically if needed. Active prazosin (Minipress) 1 MG capsule TAKE 2 CAPSULES BY MOUTH AT BEDTIME FOR NIGHTMARES Active Blood Glucose Monitoring Suppl (FreeStyle Lite) deviceIndicatio ns:Type 2 diabetes mellitus with hypoglycemia without coma, with long-term current use of insulin ([facility]) Inject under the skin 3 times daily. [...] hyperglycemia, with long-term current use of insulin ([facility]) Use to check blood sugar three times daily (before breakfast, 2 hrs after lunch & 2 hrs after dinner) as directed. 100 each Active Lancets miscIndications :Type 2 diabetes mellitus with hyperglycemia, with long-term current use of insulin ([facility]) Use to check blood sugar three times [...] needed for muscle spasms. 90 tablet 2 024 Active rosuvastatin (Crestor) 20 MG tablet TAKE 1 TABLET BY MOUTH EVERY DAY 90 tablet 3 024 Active doxycycline (Vibramycin) 100 MG capsuleIndicati ons:Wound cellulitis Take 1 capsule (100 mg) by mouth 2 times daily for 5-7 days. Take with at least 8 ounces (large glass) of water, do not lie down for 30 minutes after. If wounds resolved after 5 days, may Discontinue medication 14 capsule 024 Active naproxen (Naprosyn) 250 MG tabletIndicatio ns:Low back pain at multiple sites Take 1 tablet (250 mg) by mouth if needed in the morning and at bedtime (back pain). 60 tablet 3 024 2024 Active Alcohol Swabs (Alcohol Prep) padsIndications :Type 2 diabetes mellitus with hypoglycemia without coma, with long-term current use of insulin ([facility]) Use as directed 100 each 11 025 Active fenofibrate micronized (Antara) 43 MG capsule TAKE 1 CAPSULE (43 MG) BY MOUTH ONCE PER DAY. 90 capsule 3 025 Active metFORMIN XR (Glucophage-XR) 500 MG 24 hr tabletIndicatio ns:Type 2 diabetes mellitus with obesity (CMS/HCC) ([facility]) TAKE 2 TABLETS (1,000 MG) BY MOUTH WITH BREAKFAST. DO NOT CRUSH, CHEW, OR SPLIT. 60 tablet 025 Active insulin lispro (HumaLOG KWIKPEN) 100 UNIT/ML injectionIndica tions:Type 2 diabetes mellitus with hyperglycemia, with long-term current use of insulin ([facility]) Inject 10 units subQ twice daily with lunch (~3pm) and dinner (~9pm) as discussed 15 mL 025 Active Semaglutide,0.2 5 or 0.5MG/DOS, (Ozempic, 0.25 or 0.5 MG/DOSE,) 2 MG/3ML solution pen-injectorInd ications:Type 2 diabetes mellitus with hyperglycemia, with long-term current use of insulin ([facility]),Type 2 diabetes mellitus with obesity ([facility]) ([facility]) Inject 0.25 mg under the skin 1 (one) time per week for 28 days, THEN 0.5 mg 1 (one) time per week for 28 days. 3 mL 1 025 2024 Active insulin degludec (Tresiba FlexTouch) 200 UNIT/ML injectionIndica tions:Type 2 diabetes mellitus with hyperglycemia, with long-term current use of insulin ([facility]) INJECT 160 UNITS SUBCUTANEOUSLY ONCE DAILY. ROTATE INJECTION SITE. 27 mL 1 025 Active insulin pen needle 32G x 4 mm misc Use to inject insulin 3 times daily 100 each Active Blood Glucose Monitoring Suppl (FreeStyle [place] Lite) w/Device kit USE TO TEST BLOOD SUGAR DIRECTED 022 2024 Discontinued(M ed list cleanup (will not trigger notification to Pharmacy)) insulin pen needle 32G x 4 mm misc USE DIRECTED TO INJECT INSULIN FIVE TIMES DAILY 022 2024 Discontinued(R eorder (will not trigger notification to Pharmacy)) Tirzepatide (Mounjaro) 7.5 MG/0.5ML solution pen-injector Inject 7.5 mg under the skin 1 (one) time per week. 2 mL 11 024 2024 Discontinued(P atient refused) insulin degludec (Tresiba FlexTouch) 200 UNIT/ML injectionIndica tions:Type 2 diabetes mellitus with hyperglycemia, with long-term current use of insulin ([facility]) INJECT 160 UNITS SUBCUTANEOUSLY ONCE DAILY. ROTATE INJECTION SITE. 27 mL 5 024 2024 Discontinued(R eorder (will not trigger notification to Pharmacy)) Active Problems Patient Care Coordination No te [...] EST): Letter written to have Flexeril at half-way, permitted to take up to 3 tabs [...] (03/03/2023 10:11 AM EDT): I advise to pickle processor medication for pain today and see if [...] 08/17/2022 Type 2 diabetes mellitus with obesity ([facility]) 08/17/2022 Assessment & Plan (12/16/2023 8:12 AM [...] EST): Uncontrolled A1C 14.0 Continue followup at [facility] awaiting PA for Tirzepatide Continue Tresiba 160 units Increase semaglutide to 7mg daily, scripts sent to [facility] [address] Discussed trying to limit portion sizes, alternative choices to high sugar/high fat foods especially now that he is choosing his own foods more [facility] Call podiatry to make appointment Assessment & Plan (07/13/2023 10:39 AM EST): Uncontrolled A1C 8.8 Continue followup at [facility] awaiting PA for Tirzepatide Continue Tresiba and Metformin, encouraged more regular daily compliance with medications Discussed trying to limit portion sizes, alternative choices to high sugar/high fat foods especially now that he is choosing his own foods more [facility] Call podiatry to make appointment Assessment & Plan (12/18/2022 10:22 AM EDT): Uncontrolled due to patient noncompliance with treatment. Increase Trulicity to 4.5 mg per week to achieve maximum benefit, while starting PA for Tirzepatide Continue Tresiba and Metformin, encouraged more regular daily compliance with medications Discussed trying to limit portion sizes, alternative choices to high sugar/high fat foods [facility] Call podiatry to make appointment Assessment & Plan (09/01/2022 1:09 PM EST): Uncontrolled due to patient noncompliance with treatment. Increase Trulicity to 3 mg per week. 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 We discussed about healthier food choices and increase physical activiy, he will probably start playing basketball in the spring. FU PCP in 4-6 weeks. Nonalcoholic fatty liver 08/17/2022 Severe bipolar disorder with psychotic features 09/15/2020 Assessment & Plan (07/13/2023 10:39 AM EST): Continue psych followup and medication titration He seems to be doing well in the half-way setting Assessment & Plan (03/03/2023 10:10 AM EDT): C/w same medication regimen, he will f/u today at [facility] medication refills and adjustments done by [...] Encounters Date Type Department Care Team Description 11/01/[address] [address] Kalina Coyle, JiaD Prior Authorization (Ozempic) 11/01/2024 Travel 10/26/2024 Patient Outreach [address] [address] Gricel Daniel MD Care Coordination ([facility] Kulwinder Hernandez, initial assessment scheduled) 10/26/2024 Patient Outreach [address] [address] Gricel Daniel MD Care Coordination ([facility] Kulwinder Hernandez, Chart review ) 10/26/2024 Patient Outreach [facility] [address] [place] [address] Gricel Daniel MD Care Coordination ([facility] chart review) 10/26/2024 Patient Outreach [address] [address] Gricel Daniel MD 10/25/2024 Orders Only GENERIC EXTERNAL DATA DEPARTMENT Provider, Generic External Data 10/16/[address] [address] Carol Ann Diaz, RN Care Coordination 10/11/[address] [address] Gricel Daniel MD RECALL 10/02/2024 Refill [facility] [address] [place] [address] Kalina Coyle PharmD Type 2 diabetes mellitus with obesity (CMS/HCC) ([facility]) 09/26/2024 Telephone [facility] [address] [place] [address] Gricel Daniel MD Appointment Request 09/26/2024 Telephone [facility] [address] [place] [address] Gricel Daniel MD Med Refill 09/14/2024 Population Health Risk Score [facility] () Department [address] [place] [phone] Provider, Population Health Generic 09/10/2024 Telephone [facility] [address] [place] [phone] Gricel Daniel MD Care Management ([facility]- reschedule initial assessment. ) 09/10/2024 Refill [facility] [address] [place] [address] Gricel Daniel MD 09/07/2024 Telephone [facility] [address] [place] [phone] Gricel Daniel MD No Show 09/07/2024 Telephone [facility] [address] [place] [address] Gricel Daniel MD chartprep 09/06/2024 Patient Outreach [facility] [address] [place] [address] Gricel Daniel MD Care Coordination ([facility] Lesli De Jesus telephone call outreach) 09/05/2024 Telephone [facility] [address] [place] [phone] Gricel Daniel MD Nurse Triage 09/04/2024 Patient Outreach [facility] [address] [place] [phone] Gricel Daniel MD Care Coordination ([facility] Lesli De Jesus telephone call outreach) 09/04/2024 Patient Outreach [address] [address] Gricel Daniel MD Care Coordination ([facility] Lesli De Jesus telephone call outreach) 09/04/[address] [address] Gricel Daniel MD Care Management ([facility]- chart review) 09/03/2024 Orders Only GENERIC EXTERNAL DATA DEPARTMENT Provider, Generic External Data 08/24/2024 Patient Outreach [facility] [address] [place] [address] Haseeb Thompson Recovery Supports from Last 3 [...] Description 12/05/2024 2:30 PM EDT Medication Management [facility] [address] [place] [address] Kalina Coyle, Bisi [address] [place], [place] [phone] 01/14/2025 1:30 PM EDT Office Visit [facility] [address] [place], [place] [phone] Gricel Daniel MD [address] [place], [place] [phone] Health Maintenance Due Date Last Done Comments [...] 2024 , 05/09/2019, 04/24/2018, Additional history exists Depression Screening 07/08/2024 07/08/2023, 12/18/19 23 Dental X-Ray: Bitewings 10/06/2024 10/06/19 24, 06/20/2018, 08/05/2016, Additional history exists Lipid Panel 12/13/2024 12/14/2023, 01/20/2022 Tobacco Screening 12/13/2024 12/14/2023 Diabetes: Hemoglobin A1C 02/01/2025 025, 03/21/2024, 12/14/2023, Additional history exists Chlamydia and Gonorrhea Screening 08/23/2025 08/23/2024 Diabetes: [...] Component 13.6(11/02/19 2:39 PM EDT) No Puia, KalinaBisi weir Record your blood sugar as directed Result Component No Kalina Coyle PharmD Procedures Procedure Name Priority Date/Time Associated Diagnosis Comments POCT GLYCATED HEMOGLOBIN, TOTAL Routine 11/01/2024 2:39 PM EDT Type 2 diabetes mellitus with hyperglycemia, with long-term current use of insulin ([facility]) DRUG MONITOR, PANEL 1, SCREEN, URINE Routine 10/25/2024 1:14 PM EDT STREP A NUCLEIC ACID Routine 09/03/2024 11:27 AM EST ALBUMIN, RANDOM URINE W/CREATININE Routine 08/23/2024 11:13 AM EST Type 2 diabetes mellitus with obesity ([facility]) ([facility]) CHLAMYDIA/N. GONORRHOEAE RNA, TMA, UROGENITAL Routine 08/23/2024 11:12 AM EST Type 2 diabetes mellitus with obesity ([facility]) ([facility]) LIPID PANEL, STANDARD Routine 12/14/2023 10:17 AM EDT Type 2 diabetes mellitus with hyperglycemia, with long-term current use of insulin ([facility]) PANORAMIC RADIOGRAPHIC IMAGE Routine 10/06/2023 8:30 AM [...] Maintenance Results * (ABNORMAL) POCT HGB A1C (11/01/2024 2:39 PM EDT) Hemoglobin A1C 13.6(A) 4.0 - 6.0 % Blood 11/01/2024 2:39 PM EDT Gricel Daniel MD POINT OF CARE TEST ENTER/EDIT ORDERABLES Final Result * (ABNORMAL) Drug Monitoring, Panel 1, Screen, Urine (10/25/2024 1:14 PM EDT) Opiate Screen Urine Not Detected Not Detect LABS Comment:Opiate cut-off is 30 0 ng/mL.Positive results are unconfirmed and should not be used fornon-medical purposes. Barbiturates, Urine Not Detected Not Detect LABS Comment:Barbiturate cut-off is 200 ng/mL.Positive results are unconfirmed and should not be used fornon-medical purposes. Phencyclidine Screen Urine Not Detected Not Detect LABS Comment:Phencyclidine cut-of f is 25 ng/mL.Positive results are unconfirmed and should not be used fornon-medical purposes. Amphetamine Screen Urine Not Detected Not Detect LABS Comment:Amphetamine cut-off is 1000 ng/mL.Positive results are unconfirmed and should not be used fornon-medical purposes. Benzodiazepines Screen Urine Not Detected Not Detect LABS Comment:Benzodiazepine cut-o ff is 200 ng/mL.Positive results are unconfirmed and should not be used fornon-medical purposes. Cocaine Screen Urine Not Detected Not Detect LABS Comment:Cocaine cut-off is 3 00 ng/mL.Positive results are unconfirmed and should not be used fornon-medical purposes. Cannabinoid Screen Urine POSITIVE(A) Not Detect LABS Comment:Cannabinoid cut-off is 50 ng/mL.Positive results are unconfirmed and should not be used fornon-medical purposes. Methadone Screen, Urine Not Detected Not Detect ng/mL LABS Comment:Methadone cut-off is 300 ng/mL.Positive results are unconfirmed and should not be used fornon-medical purposes. FENTANYL URINE Not Detected Not Detect LABS Comment:Fentanyl cut-off is 1 ng/mL.Positive results are unconfirmed and should not be used fornon-medical purposes. Oxycodone Urine Screen Not Detected Not Detect ng/mL LABS Comment:Oxycodone cut-off is 100 ng/mL.Positive results are unconfirmed and should not be used fornon-medical purposes. Buprenorphine Screen Not Detected Not Detect ng/mL LABS Comment:Buprenorphine cut-of f is 5 ng/mL.Positive results are unconfirmed and should not be used fornon-medical purposes. 10/25/2024 1:14 PM EDT 10/25/2024 1:18 PM EDT Generic External Data Provider LAB URINE ORDERAB LES Final Result Performing Organization Address [facility] de Phone Number LABS [address] [place] [phone] * Strep A Nucleic Acid (09/03/2024 11:27 AM EST) IDNOW SERIAL# [id number] [facility] Strep A Nucleic Acid Negative Negative LABS Comment:All test results mus t be correlated with clinical findings.This test has not been evaluated for monitoring treatment ofinfection.Additional follow-up testing using the culture method isrequired if the result is negative and clinical symptomspersist, or in the event of an acute rheumatic feveroutbreak. 09/03/2024 11:2 7 AM EST 09/03/2024 11:30 AM EST Generic External Data Provider LAB MICROBIOLOGY - GENERAL ORDERABLES Final Result Performing Organization Address [facility] Co de Phone Number LABS [address] [place] [phone] * Albumin, Random Urine W/Creatinine (08/23/2024 11:13 AM EST) Creatinine, Urine 35.61 mg/dL [facility] Microalbumin Urine 5.0 mg/L [facility] Microalbum Creatinine Ratio Ur 14.0 <30 ug/mg cr LABS Comment:Albumin/Creatinine R atio Reference Ranges: Normal: < 30 ug/mg creatinine Microalbuminuria: 30 - 300 ug/mg creatinineClinical Albuminuria: > 300 ug/mg creatinine Urine (Urine, Random) 08/23/2024 11:13 AM EST 08/23/2024 1:11 PM EST us Gricel Daniel MD LAB URINE ORDERABLES Final Res ult LABS [address] [place] [address] [phone] * Chlamydia/N. Gonorrhoeae RNA, TMA, Urogenitial (08/23/2024 11:12 AM EST) CT PCR NOT DETECTED Not Detect. LABS Comment:A not detected test result does [...] psychologicalconsequences. NG PCR NOT DETECTED Not Detect. LABS Comment:A not detected test result does [...] AM EST 08/23/2024 4:46 PM EST Narrative LABS - 08/23/2024 4:46 PM EST Urine us Gricel Daniel MD LAB MICROBIOLOGY - GENERAL ORD ERABLES Final Result Performing Organization Address [facility] Co de Phone Number LABS [address] [place] [phone] [phone] * (ABNORMAL) Lipid Panel, Standard (12/14/2023 10:17 AM EDT) Triglycerides 121 <150 mg/dL [facility] LAB[facility] Comment:Desirable Triglyceri de: less than 150 mg/dLBorderline High Triglyceride 150-199 mg/dLHigh Triglyceride: 200-499 mg/dLVery High Triglyceride: greater than or equal to 5OO mg/dL Cholesterol 126 <200 mg/dL LABS Comment:Desirable Cholestero l: less than 200 mg/dLBorderline High Cholesterol: 200-239 mg/dLHigh Cholesterol: greater than 239 mg/dL LDL Cholesterol Calculated 71 <100 mg/dL LABS Comment:Desirable LDL: less than 100 mg/dLNear Optimal/Above Optimal LDL: 110- 129 mg/dLBorderline High LDL: 130-159 mg/dLHigh LDL: 160-189 mg/dLVery High LDL: greater than or equal to 190 mg/dL HDL Cholesterol 31(L) >40 mg/dL [facility] LAB[facility] Comment:Desirable HDL: great er than 40 mg/dL Note: This HDL assay may give artificially low results in patients with liver disease. Blood Venous blood specimen / Unknown 12/14/2023 10:17 AM EDT 12/14/2023 11:15 AM EDT us Gricel Daniel MD LAB BLOOD ORDERABLES Final Res ult LABS [address] [place] [phone] * HEPATITIS C AB W/REFL TO HCV RNA, QN, PCR (01/20/2022 3:57 PM EDT) HEPATITIS C ANTIBODY NON-REACT TAQUERIA NON-REACT TAQUERIA [facility] INDEX 0.10 <1.00 [facility] Comment: ?? HCV antibody was non-reactive. There is no laboratory ?? evidence of HCV infection. ?? In most cases, no further action is required. However, if recent HCV exposure is suspected, a test for HCV RNA (test code 67230) is suggested. ?? For additional information please refer to [email or web address]/faq/CLZ17g2 (This link is being provided for informational/ educational purposes only.) ?? 01/20/2022 3:57 PM EDT [facility] SHOE REPAIR COBBLER HISTORICAL/NON ORDERABLE LABS Final Result [facility] [address] * HIV 1/2 ANTIGEN/ANTIBODY,FOURTH GENERATION W/RFL (01/20/2022 3:57 PM EDT) HIV-1/2 ANTIGEN AND ANTIBODIES, 4TH GENERATION W/ REFLEX NON-REACT TAQUERIA NON-REACT TAQUERIA [facility] Comment: HIV-1 antigen and HIV-1/HIV-2 [...] ? For additional information please refer to [email or web address]/faq/DNG357 (This link is being provided for informational/ educational purposes only.) ? The performance of this assay has not been clinically validated in patients less than 2 years old. ?? 01/20/2022 3:57 PM EDT [facility] SHOE REPAIR COBBLER LAB BLOOD ORDERABLES Final Re sult [facility] [address] [place] [address], from Last 3 Months or Most Recently Relevant to Health Maintenance Insurance [facility] STAND ADULT Care Teams Service Shop Foreman Relationship Specialty Start Date End Date Gricel Daniel MD [address] [place], [place] [phone] PCP - General Family Medicine 08/20/20 Kalina Coyle, JiaD [address] [place], [place] [phone] Pharmacist Internal Medicine 12/08/23
--- OUTSIDE RECORDS SUMMARY | 2024-11-09 09:11 | XMS_ITS | Encounter Summary ---
Author Organization [employer] Address [address] [place] [address] [address] [place] [address] Care Team Providers Care Parts Classifier Name Role Phone Gricel Daniel MD Primary Care Provider [phone] Kalina Coyle PharmD Unavailable [phone] Encounter Details Date Type Department Care Team (Late st Contact Info) Description 08/19/2022 Orders Only [facility] [address] [place] [address] [phone] Sammi Cortez MD [address] [place], [place] [phone] Type 2 diabetes mellitus with obesity (CMS/HCC) [...] Description 12/05/2024 2:30 PM EDT Medication Management [facility] [address] [place] [address] [phone] PuiaKingstonKalina, PharmD [address] [place] [address] 01/14/2025 1:30 PM EDT Office Visit [facility] [address] [place], [place] [phone] Gricel Daniel MD [address] [place] [phone] documented as of this encounter Visit Diagnoses Diagnosis Type 2 diabetes mellitus with obesity (CMS/HCC) (CMS/HCC)- Primary documented in this encounter Care Teams Parts Classifier Relationship Specialty Start Date End Date Gricel Daniel MD [address] [place] [address] [phone] PCP - General Family Medicine 08/20/20 Kalina Coyle PharmD [address] [place] [address] [phone] Pharmacist Internal Medicine 12/08/23 Layla Hubbard Radiology Special Procedure Tech 06/15/23 09/14/23 documented as of this encounter
--- OUTSIDE RECORDS SUMMARY | 2024-11-09 09:11 | XMS_ITS | Encounter Summary ---
Author Organization [employer] Address [address] [place] [address] 7t [place] [address] Care Team Providers Care Trench Pipe Layer Name Role Phone Gricel Daniel MD Primary Care Provider [phone] Kalina Coyle PharmD Unavailable [phone] Reason for Referral * Consultation (Routine) - Authorized Specialty Diagnoses / Procedures Referred By Contdelbert t Referred To Contact Pharmacy Diagnoses Type 2 diabetes mellitus with obesity (CMS/HCC) ([facility]/HCC) Gricel Daneil MD [address] [place] [address] Phone: tel: fax: Referral ID Status Reason Start Date Expiration Date Visits Requested Visits Authorized [id number] Authorized Consult and Treat 04/12/2024 04/12/2025 6 6 Encounter Details Date Type Department Care Team (Late st Contact Info) Description 04/12/2024 Orders Only [facility] [address] [place], [place] [phone] Gricel Daniel MD [address] [place], [place] [phone] Type 2 diabetes mellitus with obesity (CMS/HCC) [...] Description 12/05/2024 2:30 PM EDT Medication Management [facility] [address] [place] [address] Kalina Coyle, JiaD [address] [place] [address] 01/14/2025 1:30 PM EDT Office Visit [facility] [address] [place] [address] Gricel Daniel MD [address] [place] [address] Scheduled Referrals Name Type Priority Associated Diagnoses Orde r Schedule Referral to Pharmacy CDTM Outpatient Referral Routine Type 2 diabetes mellitus with obesity (CMS/HCC) ([facility]/HCC) Ordered: 04/12/2024 documented as of this encounter Goals Goal Patient Goal Type Associated Problems Recent Progress Patient-Stated? Author Drink less soda, juice, and other sugary beverages Diet No Kalina Coyle PharmD Hemoglobin A1c < 7 Result Component 13.6(11/02/19 25 2:39 PM EDT) No Kalina Coyle PharmD Record your blood sugar as directed Result Component No Kalina Coyle PharmD documented as of this encounter Visit Diagnoses Diagnosis Type 2 diabetes mellitus with obesity ([facility]) ([facility])- Primary documented in this encounter Additional Health Concerns Assessment Noted Time PHQ-9 Depression Total Score: 5 12/18/19 23 2:41 PM EDT documented as of this encounter Care Teams Trench Pipe Layer Relationship Specialty Start Date End Date Gricel Daniel MD [address] [place] [address] PCP - General Family Medicine 08/20/20 Kalina Coyle PharmD [address] [place] [address] Pharmacist Internal Medicine 12/08/23 documented as of this encounter
--- OUTSIDE RECORDS SUMMARY | 2024-11-09 09:11 | XMS_ITS ---
Author Organization [employer] Address [address] [place] [address] 7t [place] [address] Care Team Providers Care Livestock Auctioneer Name Role Phone Gricel Daniel MD Primary Care Provider [phone] Kalina Coyle PharmD Unavailable [phone] Complex Status:Outreach In Progress (Enrolling) Start date:10/26/2024 Enrollment reason:ADT Feed Overview ED- [place] [facility] [place]. Case Team Name Relationship Phone Kulwinder Hernandez (Responsible Staff) [phone] Continued Care and Services Coordination
--- OUTSIDE RECORDS SUMMARY | 2024-11-09 09:11 | XMS_ITS | Encounter Summary ---
Author Organization [employer] Address [address] [facility] 7t [place] [address] Care Team Providers Care Utility Aircrewman Name Role Phone Gricel Daniel MD Primary Care Provider [phone] Kalina Coyle PharmD Unavailable [phone] Reason for Visit * Reason Comments Med Refill Encounter Details Date Type Department Care Team ([facility] st Contact Info) Description 06/11/2024 Refill [facility] [address] [place], [place] [phone] Puia, Kalina, PharmD [address] [place] [address] Type 2 diabetes mellitus with obesity ([facility]/HCC) ([facility]) Social History Tobacco Use [...] 2:30 PM EDT Medication Management [facility] [address] [place] [address] Puia, Kalina, PharmD [address] [place] [address] 01/14/2025 1:30 PM EDT Office Visit [facility] [address] [place] [address] Gricel Daniel MD [address] [place] [address] documented as of this encounter Goals Goal [...] documented as of this encounter Care Teams Utility Aircrewman Relationship Specialty Start Date End Date Gricel Daniel MD [address] [place] [address] PCP - General Family Medicine 08/20/20 Kalina Coyle, Bisi [address] [place] [address] Pharmacist Internal Medicine 12/08/23 documented as of this encounter
--- OUTSIDE RECORDS SUMMARY | 2024-11-09 09:11 | XMS_ITS ---
Author Organization [employer] Address [address] [place] [address] 7t [place] [address] Care Team Providers Care Steamfitter Supervisor Name Role Phone Gricel Daniel MD Primary Care Provider [phone] Kalina Coyle PharmD Unavailable [phone] CM Complex Status:Identified (Enrolling) Start date:10/26/2024 Enrollment reason:ADT Feed Overview ED- Pt went to [facility] [place] ED on 10/25/24. Case Team Name Relationship Phone Sofie Dueñas RN Registered Nurse(Responsible S taff) [phone] Continued Care and Services Coordination
--- OUTSIDE RECORDS SUMMARY | 2024-11-09 09:11 | XMS_ITS | Encounter Summary ---
Author Organization [employer] Address [address] [facility] 7t [place] [address] Care Team Providers Care Production Solderer Name Role Phone Gricel Daniel MD Primary Care Provider [phone] Kalina Coyle PharmD Unavailable [phone] Encounter Details Date Type Department Care Team (Late st Contact Info) Description 07/08/2023 Telephone [facility] [address] [place], [place] [phone] Gricel Daniel MD [address] [place], [place] [phone] Social History Tobacco Use Types Packs/Day Years [...] Description 12/05/2024 2:30 PM EDT Medication Management [facility] [address] [place] [address] Kalina Coyle, Bisi [address] [place] [address] 01/14/2025 1:30 PM EDT Office Visit [facility] [address] [place] [address] Gricel Daniel MD [address] [place] [address] documented as of this encounter Visit Diagnoses Not on filedocumented in this encounter Additional Health Concerns Assessment Noted Time PHQ-9 Depression Total Score: 5 12/18/19 23 2:41 PM EDT documented as of this encounter Care Teams Production Solderer Relationship Specialty Start Date End Date Gricel Daniel MD [address] [place], [place] [phone] PCP - General Family Medicine 08/20/20 Kalina Coyle PharmD [address] [place] [address] Pharmacist Internal Medicine 12/08/23 Layla Hubbard Indigo Vat Tender Cloth 06/15/23 09/14/23 documented as of this encounter
--- OUTSIDE RECORDS SUMMARY | 2024-11-09 09:11 | XMS_ITS | Encounter Summary ---
Author Organization [employer] Address [address] [facility] 7t [place] [address] Care Team Providers Care Diagnostic Cardiac Sonographer Name Role Phone Gricel Daniel MD Primary Care Provider [phone] Kalina Coyle PharmD Unavailable [phone] Reason for Referral * Consultation (Routine) - Closed Specialty Diagnoses / Procedures Referred By Contdelbert t Referred To Contact Physical Therapy Diagnoses Low back pain at multiple sites Gricel Daniel MD [address] [place] [address] Phone: tel: fax: Physical Therapy, AT [address] [place] [address] Dr [place] Phone: tel: fax: Referral ID Status Reason Start Date Expiration Date V isits Requested Visits Authorized [id number] Closed Specialty Services Required 03/22/2024 03/22/2025 20 20 Encounter Details Date Type Department Care Team (Late st Contact Info) Description 02/15/2024 Orders Only [facility] [address] [place], [place] [phone] Gricel Daniel MD [address] [place], [place] [phone] Low back pain at multiple sites (Primary [...] Description 12/05/2024 2:30 PM EDT Medication Management [facility] [address] [place] [address] Kalina Coyle, JiaD [address] [place] [address] 01/14/2025 1:30 PM EDT Office Visit [facility] [address] [place] [address] Gricel Daniel MD [address] [place] [address] Scheduled Referrals Name Type Priority Associated Diagnoses Orde r Schedule Referral to Physical Therapy Outpatient Referral Routine Low back pain at multiple sites Expected: 02/27/2024 (Approximate), Expires: 02/26/2025 documented as of this encounter Goals Goal Patient Goal Type Associated Problems Recent Progress Patient-Stated? Author Drink less soda, juice, and other sugary beverages Diet No Kalina Coyle PharmJacqui Hemoglobin A1c < 7 Result Component 13.6(11/02/19 [...] documented as of this encounter Care Teams Diagnostic Cardiac Sonographer Relationship Specialty Start Date End Date Gricel Daniel MD [address] [place] [address] PCP - General Family Medicine 08/20/20 Kalina Coyle PharmD [address] [place] [address] Pharmacist Internal Medicine 12/08/23 documented as of this encounter
--- OUTSIDE RECORDS SUMMARY | 2024-11-09 09:11 | XMS_ITS | Encounter Summary ---
Author Organization [employer] Address [address] [facility] 7t [place] [address] Care Team Providers Care Management Planner Name Role Phone Gricel Daniel MD Primary Care Provider [phone] Kalina Coyle PharmD Unavailable [phone] Encounter Details Date Type Department Care Team (Late st Contact Info) Description 07/08/2023 Telephone [facility] [address] [place], [place] [phone] Gricel Daniel MD [address] [place], [place] [phone] Social History Tobacco Use Types Packs/Day Years [...] Description 12/05/2024 2:30 PM EDT Medication Management [facility] [address] [place] [phone] Kalina Coyle, PharmD [address] [place] [address] 01/14/2025 1:30 PM EDT Office Visit [facility] [address] [place] [address] Gricel Daniel MD [address] [place] [address] documented as of this encounter Visit Diagnoses Not on filedocumented in this encounter Additional Health Concerns Assessment Noted Time PHQ-9 Depression Total Score: 5 12/18/19 23 2:41 PM EDT documented as of this encounter Care Teams Management Planner Relationship Specialty Start Date End Date Gricel Daniel MD [address] [place] [address] PCP - General Family Medicine 08/20/20 Kalina Coyle, PharmD [address] [place] [address] Pharmacist Internal Medicine 12/08/23 Layla Hubbard Aeronautical Test Engineer 06/15/23 09/14/23 documented as of this encounter
--- NOTE | 2024-11-09 10:34 | ED_ITS ---
HPI - General Adult General Chief complaint: Fall Stated complaint: Fall - L shoulder injury, back pain Time Seen by Provider: 11/09/24 09:09 Source: patient Mode of arrival: ambulatory Limitations: no limitations History of Present Illness ED Provider: Tyrese Hoffman HPI narrative: 24-year-old male history of diabetes, asthma, schizophrenia, bipolar, PTSD presents to the ED for left shoulder, left knee, and back pain after falling yesterday at [facility]. Patient states the floor was wet but there was no floor sign and he slipped and fell onto his left shoulder, left knee and back. Patient denies hitting head or loss of consciousness. Patient denies being on any blood thinners. Patient denies any chest pain, shortness of breath, headache, dizziness, nausea, vomiting, rectal bleeding, vomiting blood, coughing up blood. Patient states shoulder pain on range of motion. Related Data Home Medications ?Medication ?Instructions ?Recorded ?Confirmed divalproex 500 mg tablet,delayed 500 mg PO DAILY 08/14/22 03/12/23 release dulaglutide 0.75 mg/0.5 mL 4.5 mg subcut QWEEK 08/14/22 03/12/23 subcutaneous pen injector (Trulicity) insulin lispro 100 unit/mL 1 sliding scale dose subcut 08/14/22 03/12/23 subcutaneous pen (Humalog Tempo BID-QID PRN Hyperglycemia Pen (U-100) Insulin) divalproex 500 mg tablet,delayed 1,000 mg PO BEDTIME 02/19/23 03/12/23 release budesonide-formoterol HFA 80 2 puff inhalation BID 03/12/23 03/12/23 mcg-4.5 mcg/actuation aerosol inhaler (Symbicort) bupropion HCl 150 mg 24 hr tablet, 150 mg PO QAM depressive disorder 03/12/23 03/12/23 extended release fenofibrate micronized 43 mg 43 mg PO DAILY 03/12/23 03/12/23 capsule haloperidol 10 mg tablet 10 mg PO BEDTIME 03/12/23 03/12/23 hydroxyzine HCl 50 mg tablet 50 mg PO TID PRN panic attack 03/12/23 03/12/23 insulin degludec 200 unit/mL (3 160 unit subcut DAILY 03/12/23 03/12/23 mL) subcutaneous pen (Tresiba FlexTouch U-200 insulin) lorazepam 1 mg tablet 1 mg PO BID PRN Anxiety 03/12/23 03/12/23 meloxicam 7.5 mg tablet 7.5 mg PO QAM 03/12/23 03/12/23 metformin 500 mg tablet,extended 1,000 mg PO BID 03/12/23 03/12/23 release 24 hr paliperidone palmitate 234 mg/1.5 234 mg IM QMONTH 03/12/23 03/12/23 mL intramuscular syringe (Invega Sustenna) prazosin 1 mg capsule 2 mg PO BEDTIME nightmares 03/12/23 03/12/23 rosuvastatin 20 mg tablet 20 mg PO DAILY 03/12/23 03/12/23 trazodone 150 mg tablet 150 mg PO BEDTIME PRN Insomnia 03/12/23 03/12/23 Previous Rx's ?Medication ?Instructions ?Recorded aluminum-mag hydroxide-simethicone 5 ml PO 5XD PRN indigestion #3,000 04/11/23 200 mg-200 mg-20 mg/5 mL oral susp mL (Maalox Advanced) cyclobenzaprine 5 mg tablet 5 mg PO TID PRN muscle spasm 7 06/06/23 days #21 tabs benzocaine 15 mg-menthol 2.6 mg 1 braden mucous membrane Q2-4H PRN 09/03/24 lozenges (Cepacol Sore Throat sore throat #16 ea (benzocaine-menthol)) doxycycline monohydrate 100 mg 100 mg PO BID 7 days #14 tabs 09/03/24 tablet guaifenesin 200 mg tablet 200 mg PO TID PRN cough #10 tabs 09/03/24 naproxen 500 mg tablet 500 mg PO BID PRN pain #14 tabs 11/09/24 Allergies Allergy/AdvReac Type Severity Reaction Status Date / Time No Known Allergies Allergy Verified 11/09/24 08:48 [No Known Allergies*] Review of Systems 2 Review of Systems: Left shoulder left knee and back pain Yes all other systems are reviewed and are negative [facility] Past Medical History Medical History Hyperglycemia 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 Diabetes type 2, uncontrolled Bipolar disorder with psychotic features PTSD (post-traumatic stress disorder) Concussion Asthma Depression Depression Bipolar disorder Anxiety Diabetes mellitus, type 2 Social History Social History Household Members: Family Household Members Other:: mom and sister Housing: Apartment Do you presently have visiting nurse or other home services: No Alcohol intake: current Alcohol intake frequency: holidays/special occasions only Alcohol type: beer, wine and hard liquor Patient Tobacco Use Status: Current everyday Tobacco user Tobacco use type: Cigarette and Smokeless Tobacco Cigarette Packs Per Day: 3 Cigarettes Per Day: 60.0 Years Smoked: 4 years e-Cigarette/Vaping Use: Currently Using Second Hand Smoke Exposure: Yes Substance Use Type: Caffiene service: No Current occupational status: disabled 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 Sexual orientation: Decline to Answer Physical Exam ED Vital Signs: Vital Signs - 24 hr 11/09/24 08:47 Temperature 97.3 F Pulse Rate 89 Respiratory Rate 16 Blood Pressure 120/77 Pulse Oximetry 97 Oxygen Delivery Method Room Air BMI result Body Mass Index 55.7 Const General: cooperative, healthy appearing, comfortable, no acute distress, well developed, alert, awake and Physically active Orientation/consciousness: patient oriented x3 HENMT Head: Yes normal to inspection, Yes No palpable skull fracture present, Yes normocephalic, Yes atraumatic and No abrasion Eyes General: appearance normal, both eyes and all related structures Neck Neck: Yes normal visual inspection, Yes full ROM and Yes no meningeal signs Chest Chest palpation & inspection: normal inspection of the chest and normal palpation of entire chest wall Resp Effort & Inspection: normal respiratory effort and able to speak in complete sentences Auscultation: clear to auscultation bilaterally Cardio Jugular venous distension: no JVD Heart sounds: S1 normal heart sound present and S2 normal heart sound present GI Inspection: Yes normal to inspection Palpation (GI): not firm, nontender, no guarding and not rigid General: Yes no CVA tenderness Back/Spine/Pelvis Back: no CVA tenderness and back tenderness (thoraic/lumbar) Skin General skin exam: no rashes or lesions noted, elasticity normal and turgor normal Neuro General: patient oriented x3, gait normal, tone normal, moves all extremities, Normal light touch and pain sensation, no meningeal signs, no focal motor deficits, CN's II-XI intact bilaterally and normal sensation to monofilament Extrem General: Yes normal to inspection, Yes full ROM and Yes capillary refill normal Shoulder/upper arm images: 2 1. tenderness on palpation. Negative for erythema, ecchymosis, crepitus, or deformity. Positive for pain on range of motion. Rest of extremity normal. Motor/neuro /vascular exam intact Knee images: 2 1. mild tenderness of left knee. Negative ecchymosis, crepitus, deformity, or stiffness. Psych Appearance: grossly normal, well kempt and not disheveled Medical Decision Making Medical Decision Making MDM Narrative: 24-year-old male presents to ED for fall with left shoulder left knee back pain. Negative for signs of life-threatening traumatic etiology on body a hold exam. Images are normal. patient informed to follow up with primary care provider may need physical therapy in his no improvement MRI. Not suspecting brain bleed, neck fracture, [place], CHF, intrathoracic ensure abdominal traumatic etiology, or any other life-threatening etiology. Patient discharged with naproxen. Patient requests Kwame wrap for knee. Not suspecting septic joint, gout, DVT, compartment syndrome, arterial occlusion, ostelymylelitits, or necrofascitits Differential Diagnosis Differential Diagnoses: The differential diagnosis associated with the presentation includes ( shoulder dislocation fracture sprain tibial fracture) Admission/Observation Consideration of admission/observation: Escalation of care including admission/observation considered Independent Interpretation I performed an independent interpretation of an: Plain X-Ray Independent Historian Clinical information obtained from an independent historian. History obtained from or confirmed by: Other ( patient) Prescription Management I considered prescription management with: Pain Medication Discharge Plan Discharge Clinical Impression: Fall, Left shoulder pain, Knee pain Patient Disposition: Home, Self-Care Instructions: Knee Pain (ED), Fall Prevention (ED), Shoulder Pain (ED) Additional Instructions: Your x-rays came back reassuring. Recommend follow up with primary care provider. Return to the ED immediately for any swelling, ecchymosis, redness, inability to move extremity, chest pain, shortness of breath, abdominal pain, bluish black discoloration, rectal bleeding, vomiting blood, urinary / bowel incontinence, or any other concerning symptoms. EXAMINATION: XR THORACIC SPINE 2 VIEWS HISTORY: fall pain COMPARISON: There are no prior studies for comparison. FINDINGS: AP and lateral views of the thoracic spine are submitted. Osseous mineralization is normal. The vertebral bodies maintain normal height and alignment without evidence of fracture or subluxation. The intervertebral disc spaces are preserved. The visualized paraspinal soft tissues are unremarkable. XR/XR thoracic spine 2V IMPRESSION: Unremarkable examination of the thoracic spine. Electronically signed by: Kristian Flores MD 11/09/2024 09:46 AM EDT RP [place] [id number] XRay Report Signed Patient: Williams Fontanez MR#: [id number] : 2000 Acct:[id number] Age/Sex: 24 / M ADM Date: 11/09/24 Loc: HO.ED Attending Dr: Ordering Physician: Tyrese Hoffman Date of Service: 11/09/24 Procedure(s): XR lumbar spine 2-3V Accession Number(s): [id number] cc: Tyrese Hoffman; Cinthia Daniel EXAMINATION: XR LUMBAR SPINE 2-3 VIEWS HISTORY: fall. Pain COMPARISON: Comparison is made with the prior examination dated 12/14/2023. FINDINGS: AP, lateral, and coned down views of the lumbar spine are submitted. Osseous mineralization is normal. Five nonrib-bearing lumbar vertebral bodies are identified, maintaining normal height and alignment without evidence of fracture or spondylolisthesis. The intervertebral disc spaces are preserved. The posterior elements are intact. The visualized paraspinal soft tissues are unremarkable. XR/XR lumbar spine 2-3V IMPRESSION: Unremarkable examination of the lumbar spine. Electronically signed by: Kristian Flores MD 11/09/2024 09:48 AM EDT RP EXAMINATION: XR SHOULDER 2 OR MORE VIEWS LEFT HISTORY: fall COMPARISON: Comparison is made with the prior examination dated 10/31/2022. FINDINGS: Three views of the left shoulder are submitted. Osseous mineralization is normal. There is no fracture or dislocation. The glenohumeral and acromioclavicular joint spaces are preserved. The soft tissues are unremarkable. XR/XR shoulder LT min 2V IMPRESSION: Unremarkable examination of the left shoulder. Electronically signed by: Kristian Flores MD 11/09/2024 09:45 AM EDT RP EXAMINATION: XR KNEE 1-2 VIEWS LEFT HISTORY: fall COMPARISON: Comparison is made with the prior examination dated 05/11/2022. FINDINGS: AP and lateral views of the left knee are submitted. Osseous mineralization is normal. There is no fracture or dislocation. The joint spaces are preserved. The soft tissues are unremarkable. There is no joint effusion. XR/XR knee LT 2V IMPRESSION: Unremarkable examination of the left knee. Electronically signed by: Kristian Flores MD 11/09/2024 09:44 AM EDT RP Prescriptions: New naproxen 500 mg tablet 500 mg PO BID PRN (Reason: pain) Qty: 14 0RF No Action divalproex 500 mg tablet,delayed release (DR/EC) 500 mg PO DAILY insulin lispro [Humalog Tempo Pen(U-100)Insuln] 100 unit/mL insulin pen 1 sliding scale dose subcut BID-QID PRN (Reason: Hyperglycemia) Trulicity 0.75 mg/0.5 mL pen injector 4.5 mg subcut QWEEK divalproex 500 mg tablet,delayed release (DR/EC) 1,000 mg PO BEDTIME prazosin 1 mg capsule 2 mg PO BEDTIME bupropion HCl 150 mg tablet extended release 24 hr 150 mg PO QAM Invega Sustenna 234 mg/1.5 mL syringe 234 mg IM QMONTH haloperidol 10 mg tablet 10 mg PO BEDTIME lorazepam 1 mg tablet 1 mg PO BID PRN (Reason: Anxiety) meloxicam 7.5 mg tablet 7.5 mg PO QAM insulin degludec [Tresiba FlexTouch U-200] 200 unit/mL (3 mL) insulin pen 160 unit subcut DAILY hydroxyzine HCl 50 mg tablet 50 mg PO TID PRN (Reason: panic attack) trazodone 150 mg tablet 150 mg PO BEDTIME PRN (Reason: Insomnia) metformin 500 mg tablet extended release 24 hr 1,000 mg PO BID rosuvastatin 20 mg tablet 20 mg PO DAILY fenofibrate micronized 43 mg capsule 43 mg PO DAILY budesonide-formoterol [Symbicort] 80-4.5 mcg/actuation HFA aerosol inhaler 2 puff INHALATION BID alum-mag hydroxide-simeth [Maalox Advanced] 200-200-20 mg/5 mL suspension 5 ml PO 5XD PRN (Reason: indigestion) Qty: 3000 0RF cyclobenzaprine 5 mg tablet 5 mg PO TID PRN (Reason: muscle spasm) 7 Days Qty: 21 0RF doxycycline monohydrate 100 mg tablet 100 mg PO BID 7 Days Qty: 14 0RF Cepacol Sore Throat (sheba-men) 15-2.6 mg lozenge 1 braden mucous membrane Q2-4H PRN (Reason: sore throat) Qty: 16 0RF guaifenesin 200 mg tablet 200 mg PO TID PRN (Reason: cough) Qty: 10 0RF Referrals: Gricel Daniel MD [Primary Care Provider] - ( Fall) Stand Alone Forms: Work/School Release Interventions: ED Discharge Assessment Last Done: 11/09/24 11:55 Discharge Date/Time: 11/09/24 11:56 Print Language: Italian
[2024-11-09 11:55] VITALS: BP 120/77; PULSE 89; RESP 16; TEMP 36.3; O2SAT 97
== END 2024-11-09 11:56 | disposition home or self-care (01) ==
PROVIDERS: Emergency Provider Emergency Medicine; PCP General Practice
DX: Z04.3 Encounter for examination and observation following other accident (principal); M25.512 Pain in left shoulder; M25.562 Pain in left knee
CPT/HCPCS: 72070; 72100; 73030; 73560; 99282; 99283

== ENCOUNTER → 2024-11-09 09:10 | Outpatient (BNV) | payer MEDICAID, SELFPAY | PROVIDERS: Emergency Provider Emergency Medicine; PCP General Practice; Visit Provider Radiology Diagnostic Radiology | DX: M54.50 Low back pain, unspecified (principal); M54.6 Pain in thoracic spine; M25.512 Pain in left shoulder; M25.562 Pain in left knee; W19.XXXA Unspecified fall, initial encounter | CPT/HCPCS: 72070; 72100; 73030; 73560 ==

== ENCOUNTER 2024-11-23 08:42 | Outpatient (REF) | payer MEDICAID, SELFPAY ==
--- OUTSIDE RECORDS SUMMARY | 2024-11-23 08:56 | XMS_ITS | Encounter Summary ---
Author Organization [employer] Address [address] [place] [address] [address] [place] [address] Care Team Providers Care Crop Farm Helper Name Role Phone Gricel Daniel MD Primary Care Provider [phone] Kalina Coyle PharmD Unavailable [phone] Reason for Visit * Reason Onset Date Comments Med Refill 09/26/2024 Encounter Details Date Type Department Care Team ([facility] st Contact Info) Description 09/26/2024 Telephone [facility] [address] [place], [place] [phone] Gricel Daniel MD [address] [place], [place] [phone] Med Refill Social History Tobacco Use Types [...] 2:11 PM EDT Medication was sent to [facility] with 5 refills please advise patient to call pharmacy and transfer script to [facility]. * Telephone Encounter - Vannessa Mcdaniel - 09/26/2024 2:08 PM EDT Images from the original note were not included. TC from pt requesting medication refill. Medications needing refill : insulin degludec (Tresiba FlexTouch) 200 UNIT/ML injection To be sent to: [facility] - [place], [place] - [address] documented in this encounter Plan of Treatment Upcoming Encounters Date Type Department Care Team (Late st Contact Info) Description 12/05/2024 2:30 PM EDT Medication Management [facility] [address] [place] [id number] Kalina Coyle, PharmD [address] [place] [address] 01/14/2025 1:30 PM EDT Office Visit [facility] [address] [place] [address] Gricel Daniel MD [address] [place] [address] documented as of this encounter Goals Goal [...] documented as of this encounter Care Teams C[employer] Helper Relationship Specialty Start Date End Date Gricel Daniel MD [address] [place] [id number] PCP - General Family Medicine 08/20/20 Kalina Coyle, PharmD [address] [place] [id number] Pharmacist Internal Medicine 12/08/23 documented as of this encounter
[2024-11-26 01:39] LABS: TS Negative Control Passed; TS Panel A 0; TS Panel B 2; TS Positive Control Passed; TSpotTB Negative (Negative)
== END 2024-11-23 08:43 | disposition home or self-care (01) ==
LOC: HO.HHCL 08:42
PROVIDERS: Visit Provider General Practice
DX: Z11.1 Encounter for screening for respiratory tuberculosis (principal)
CPT/HCPCS: 36415; 86481

== ENCOUNTER 2024-11-27 10:22 | Outpatient (REF) | payer MEDICAID, SELFPAY ==
--- NOTE | ~2024-11-27 | XR_ITS ---
EXAMINATION: XR HAND 3 OR MORE VIEWS RIGHT HISTORY: pain, swollen COMPARISON: Comparison is made with the prior examination dated 03/18/2023. FINDINGS: Three views of the right hand are submitted. Osseous mineralization is normal. There is no fracture or dislocation. The joint spaces are preserved. The soft tissues are unremarkable. XR/XR hand RT min 3V IMPRESSION: Unremarkable examination of the right hand. Electronically signed by: Kristian Flores MD 11/27/2024 11:00 AM EDT
== END 2024-11-27 10:23 | disposition home or self-care (01) ==
LOC: HO.HHCX 10:22
PROVIDERS: PCP General Practice; Visit Provider Internal Medicine
DX: M79.89 Other specified soft tissue disorders (principal)
CPT/HCPCS: 73130

== ENCOUNTER → 2024-11-27 10:23 | Outpatient (BNV) | payer MEDICAID, SELFPAY | PROVIDERS: PCP General Practice; Visit Provider Radiology Diagnostic Radiology | DX: M79.641 Pain in right hand (principal) | CPT/HCPCS: 73130 ==

== ENCOUNTER 2024-12-13 19:35 | Emergency (ER) | payer MEDICAID, SELFPAY ==
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
[2024-12-13 19:37] VITALS: BP 126/80; PULSE 100; O2SAT 98
[2024-12-13 19:41] VITALS: BP 122/67; PULSE 100; RESP 17; TEMP 36.9; O2SAT 98; BMI 56.8
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
[2024-12-13 21:46] VITALS: BP 122/67; PULSE 100; RESP 17; TEMP 36.9; O2SAT 98
== END 2024-12-13 21:47 | disposition home or self-care (01) ==
PROVIDERS: Emergency Provider Emergency Medicine; PCP General Practice
DX: S00.83XA Contusion of other part of head, initial encounter (principal); R11.2 Nausea with vomiting, unspecified; R51.9 Headache, unspecified; F17.210 Nicotine dependence, cigarettes, uncomplicated; Y04.2XXA Assault by strike against or bumped into by another person, initial encounter; Y93.9 Activity, unspecified; Y92.9 Unspecified place or not applicable; Y99.8 Other external cause status; Z79.899 Other long term (current) drug therapy
CPT/HCPCS: 70450; 99282; 99284

== ENCOUNTER → 2024-12-13 19:45 | Outpatient (BNV) | payer MEDICAID, SELFPAY | PROVIDERS: PCP General Practice; Visit Provider Radiology Diagnostic Radiology | DX: G44.309 Post-traumatic headache, unspecified, not intractable (principal) | CPT/HCPCS: 70450 ==

== ENCOUNTER 2024-12-25 18:35 | Emergency (ER) | payer MEDICAID, SELFPAY ==
--- NOTE | 2024-12-25 18:38 | ECG_ITS ---
Test Reason : NEAR SYNCOPY Blood Pressure : */* mmHG Vent. Rate : 103 BPM Atrial Rate : 103 BPM P-R Int : 138 ms QRS Dur : 74 ms QT Int : 294 ms P-R-T Axes : 46 31 24 degrees QTcB Int : 385 ms Sinus tachycardia Cannot rule out Anterior infarct , age undetermined Abnormal ECG When compared with ECG of 03-Sep-2024 10:02, No significant change was found Referred By: Generic ED Physician Electronically Signed By: STEF ROD
[2024-12-25 18:41] VITALS: BP 106/72; PULSE 101; O2SAT 96
[2024-12-25 19:49] VITALS: BP 128/50; PULSE 108; RESP 16; TEMP 36.8; O2SAT 97; BMI 54.5
--- NOTE | 2024-12-25 19:50 | ED.WEAKNESS ---
HPI - Weakness General Chief complaint: Nausea/Vomiting/Diarrhea Stated complaint: dizzy, ?syncopal episode after sitting by pool Related Data Home Medications ?Medication ?Instructions ?Recorded ?Confirmed divalproex 500 mg tablet,delayed 500 mg PO DAILY 08/14/22 03/12/23 release dulaglutide 0.75 mg/0.5 mL 4.5 mg subcut QWEEK 08/14/22 03/12/23 subcutaneous pen injector (Trulicity) insulin lispro 100 unit/mL 1 sliding scale dose subcut 08/14/22 03/12/23 subcutaneous pen (Humalog Tempo BID-QID PRN Hyperglycemia Pen (U-100) Insulin) divalproex 500 mg tablet,delayed 1,000 mg PO BEDTIME 02/19/23 03/12/23 release budesonide-formoterol HFA 80 2 puff inhalation BID 03/12/23 03/12/23 mcg-4.5 mcg/actuation aerosol inhaler (Symbicort) bupropion HCl 150 mg 24 hr tablet, 150 mg PO QAM depressive disorder 03/12/23 03/12/23 extended release fenofibrate micronized 43 mg 43 mg PO DAILY 03/12/23 03/12/23 capsule haloperidol 10 mg tablet 10 mg PO BEDTIME 03/12/23 03/12/23 hydroxyzine HCl 50 mg tablet 50 mg PO TID PRN panic attack 03/12/23 03/12/23 insulin degludec 200 unit/mL (3 160 unit subcut DAILY 03/12/23 03/12/23 mL) subcutaneous pen (Tresiba FlexTouch U-200 insulin) lorazepam 1 mg tablet 1 mg PO BID PRN Anxiety 03/12/23 03/12/23 meloxicam 7.5 mg tablet 7.5 mg PO QAM 03/12/23 03/12/23 metformin 500 mg tablet,extended 1,000 mg PO BID 03/12/23 03/12/23 release 24 hr paliperidone palmitate 234 mg/1.5 234 mg IM QMONTH 03/12/23 03/12/23 mL [facility]uscular syringe [facility] prazosin 1 mg capsule 2 mg PO BEDTIME nightmares 03/12/23 03/12/23 rosuvastatin 20 mg tablet 20 mg PO DAILY 03/12/23 03/12/23 trazodone 150 mg tablet 150 mg PO BEDTIME PRN Insomnia 03/12/23 03/12/23 Previous Rx's ?Medication ?Instructions ?Recorded aluminum-mag hydroxide-simethicone 5 ml PO 5XD PRN indigestion #3,000 04/11/23 200 mg-200 mg-20 mg/5 mL oral susp mL (Maalox Advanced) cyclobenzaprine 5 mg tablet 5 mg PO TID PRN muscle spasm 7 06/06/23 days #21 tabs benzocaine 15 mg-menthol 2.6 mg 1 braden mucous membrane Q2-4H PRN 09/03/24 lozenges (Cepacol Sore Throat sore throat #16 ea (benzocaine-menthol)) doxycycline monohydrate 100 mg 100 mg PO BID 7 days #14 tabs 09/03/24 tablet guaifenesin 200 mg tablet 200 mg PO TID PRN cough #10 tabs 09/03/24 naproxen 500 mg tablet 500 mg PO BID PRN pain #14 tabs 11/09/24 Allergies Allergy/AdvReac Type Severity Reaction Status Date / Time No Known Allergies (No Known Allergy Verified 12/25/24 19:51 Allergies*) PMFSH Past Medical History Medical History Hyperglycemia 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 Diabetes type 2, uncontrolled Bipolar disorder with psychotic features PTSD (post-traumatic stress disorder) Concussion Asthma Depression Depression Bipolar disorder Anxiety Diabetes mellitus, type 2 Social History Social History Household Members: Family Household Members Other:: mom and sister Housing: Apartment Do you presently have visiting nurse or other home services: No Alcohol intake: current Alcohol intake frequency: holidays/special occasions only Alcohol type: beer, wine and hard liquor Patient Tobacco Use Status: Current everyday Tobacco user Tobacco use type: Cigarette and Smokeless Tobacco Cigarette Packs Per Day: 3 Cigarettes Per Day: 60.0 Years Smoked: 4 years e-Cigarette/Vaping Use: Currently Using Second Hand Smoke Exposure: Yes Substance Use Type: Caffiene Advance Directives: No Advance Directives Information Provided: No Do you have a plan to hurt others: No Plan service: No Current occupational status: disabled 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 no head trauma noted Last few days n/v and diarrhea. Today outside, felt sweaty and hot, tunnel vision looked up at his sister while sitting then fell back. LOC 5-6 seconds, no tongue biting or self soiling. Heat illness vs GI illness? does not look sick. Last void: bright yellow here- visualized to be tolerating PO fluids in triage and requesting food. On exam: very dry mucous membranes. morbid obesity, lungs clear, abd soft nontender, but limited due to body habitus. Cleared C spine via nexus criteria. No tongue bites notes. No head or facial trauma noted. moving all extremities without difficulty. DTRs intact. s1 and s2 present, no M/R/G Plan: POC glucose checked with basic labs and U/A, ck, EKG deferred C spine and Head CT ( neg Nexus and low risk ICH mal[place] head ct rule) Labs checked while awaiting room. mild ck elevation no 5x ULN, Urine without hematuria/protein-rhabdo deemed very unlikely in this setting. No anemia or electrolyte imbalance, No SELENE. elevated blood sugar, fasting, but < 190. SInus tachy EKG 104 bpm, no acute findings, no able to compare to others at moment. Awaiting room will continue to monitor. Medical Decision Making Lab Data 12/25/24 20:17 12/25/24 20:17 Labs: Lab Results 12/25/24 12/25/24 12/25/24 Range/Units 19:56 20:15 20:17 WBC 11.9 H (4.8-10.8) X10*3/uL RBC 5.35 (4.60-5.80) X10*6/uL Hgb 15.7 (14.0-18.0) g/dl Hct 45.2 (42.0-52.0) % MCV 84.5 (80.0-98.0) fL MCH 29.3 (27.0-33.0) pg MCHC 34.7 (31.0-36.0) g/dl RDW 11.9 (11.0-16.0) % Plt Count 264 (160-400) X10*3/uL MPV 10.5 (9.4-12.4) fL Immature Gran % (Auto) 0.3 (0.0-0.4) % Neut % (Auto) 52.7 (45-73) % Lymph % (Auto) 35.8 (20-40) % Bond % (Auto) 9.6 (2-11) % Eos % (Auto) 1.2 (0-4) % Baso % (Auto) 0.4 (0-2) % Lymph # (Auto) 4.3 (1.2-4.9) X10*3/uL Bond # (Auto) 1.1 (0.1-1.2) X10*3/uL Eos # (Auto) 0.1 (0.0-0.4) X10*3/uL Baso # (Auto) 0.1 (0.0-0.2) X10*3/uL Abs Immat Gran (auto) 0.03 (0.00-0.03) X10*3/uL Absolute Neuts (auto) 6.3 (2.0-8.3) x10*3/uL Absolute Nucleated RBC 0.000 (0.0-0.012) X10*3/uL Nucleated RBC % (auto) 0.0 (0.0-0.2) /100WBC Sodium 141 (135-145) mmol/L Potassium 3.8 (3.3-5.1) mmol/L Chloride 108 (96-108) mmol/L Carbon Dioxide 24 (22-29) mmol/L Anion Gap 13 (12-20) BUN 12 (9-16) mg/dL Creatinine 0.84 (0.5-1.4) mg/dL Estim Creat Clear Calc 218.1 Estimated GFR > 60 POC Glucose 180 H (60-115) mg/dL Fasting Glucose 191 H (60-99) mg/dL Calcium 9.7 (8.4-10.2) mg/dL Magnesium 1.6 (1.6-2.6) mg/dL Total Bilirubin 0.5 (0.0-1.0) mg/dL AST 20 (5-37) U/L ALT 23 (0-40) U/L Alkaline Phosphatase 64 (39-117) U/L Total Creatine Kinase 441 H (38-174) U/L Total Protein 6.8 (6.5-8.0) g/dL Albumin 4.2 (3.5-5.0) g/dL Urine Color Yellow Urine Appearance Clear Urine pH 6.0 (5.0-9.0) Ur Specific [place] >= 1.030 H (1.005-1.025) Urine Protein Negative (Neg-Trace) mg/dL Urine Glucose (UA) >=1000 H (Negative) mg/dL Urine Ketones Trace (Negative) mg/dL Urine Blood Negative (Negative) Urine Nitrite Negative (Negative) Ur Leukocyte Esterase Negative (Negative) Urine RBC 0-2 (0-2) /HPF Urine WBC 0-5 (0-5) /HPF Ur Squamous Epith Cells 0-2 (0-2) /HPF Calcium Oxalate Crystal Present Urine Bacteria None Seen (None Seen) Hyaline Casts 0-2 (0-2) /LPF Urine Yeast Present Discharge Plan Discharge Clinical Impression: Acute dehydration Syncope Qualifiers: Syncope type: heat syncope Encounter type: initial encounter Qualified Code(s): T67.1XXA - Heat syncope, initial encounter Diabetes type 2, uncontrolled Qualifiers: Glycemic state: with hyperglycemia Qualified Code(s): E11.65 - Type 2 diabetes mellitus with hyperglycemia Patient Disposition: Left W/O Completing Treatment Prescriptions: No Action divalproex 500 mg tablet,delayed release (DR/EC) 500 mg PO DAILY insulin lispro [Humalog Tempo Pen(U-100)Insuln] 100 unit/mL insulin pen 1 sliding scale dose subcut BID-QID PRN (Reason: Hyperglycemia) Trulicity 0.75 mg/0.5 mL pen injector 4.5 mg subcut QWEEK naproxen 500 mg tablet 500 mg PO BID PRN (Reason: pain) Qty: 14 0RF divalproex 500 mg tablet,delayed release (DR/EC) 1,000 mg PO BEDTIME prazosin 1 mg capsule 2 mg PO BEDTIME bupropion HCl 150 mg tablet extended release 24 hr 150 mg PO QAM Invega Sustenna 234 mg/1.5 mL syringe 234 mg IM QMONTH haloperidol 10 mg tablet 10 mg PO BEDTIME lorazepam 1 mg tablet 1 mg PO BID PRN (Reason: Anxiety) meloxicam 7.5 mg tablet 7.5 mg PO QAM insulin degludec [Tresiba FlexTouch U-200] 200 unit/mL (3 mL) insulin pen 160 unit subcut DAILY hydroxyzine HCl 50 mg tablet 50 mg PO TID PRN (Reason: panic attack) trazodone 150 mg tablet 150 mg PO BEDTIME PRN (Reason: Insomnia) metformin 500 mg tablet extended release 24 hr 1,000 mg PO BID rosuvastatin 20 mg tablet 20 mg PO DAILY fenofibrate micronized 43 mg capsule 43 mg PO DAILY budesonide-formoterol [Symbicort] 80-4.5 mcg/actuation HFA aerosol inhaler 2 puff INHALATION BID alum-mag hydroxide-simeth [Maalox Advanced] 200-200-20 mg/5 mL suspension 5 ml PO 5XD PRN (Reason: indigestion) Qty: 3000 0RF cyclobenzaprine 5 mg tablet 5 mg PO TID PRN (Reason: muscle spasm) 7 Days Qty: 21 0RF doxycycline monohydrate 100 mg tablet 100 mg PO BID 7 Days Qty: 14 0RF Cepacol Sore Throat (sheba-men) 15-2.6 mg lozenge 1 braden mucous membrane Q2-4H PRN (Reason: sore throat) Qty: 16 0RF guaifenesin 200 mg tablet 200 mg PO TID PRN (Reason: cough) Qty: 10 0RF Discharge Date/Time: 12/26/24 00:36
[2024-12-25 19:59] LABS: Glucose, Whole Blood 180 mg/dL (60-115)
--- NOTE | 2024-12-25 20:09 | MHC.EDTECH ---
Second order of EKG not needed. PA was not aware that the first one was done.
[2024-12-25 20:22] LABS: MANUAL DIFF FLAG NO
[2024-12-25 20:30] LABS: Basophils Absolute Auto 0.1 X10*3/uL (0.0-0.2); Basophils Percent Auto 0.4 % (0-2); Eosinophils Absolute Auto 0.1 X10*3/uL (0.0-0.4); Eosinophils Percent Auto 1.2 % (0-4); Hematocrit 45.2 % (42.0-52.0); Hemoglobin 15.7 g/dl (14.0-18.0); Imm Gran Abs Auto 0.03 X10*3/uL (0.00-0.03); Imm Gran Pct Auto 0.3 % (0.0-0.4); Lymphocytes Absolute Auto 4.3 X10*3/uL (1.2-4.9); Lymphocytes Percent Auto 35.8 % (20-40); Mean Corpuscular HGB Conc 34.7 g/dl (31.0-36.0); Mean Corpuscular Hemoglobin 29.3 pg (27.0-33.0); Mean Corpuscular Volume 84.5 fL (80.0-98.0); Mean Platelet Volume 10.5 fL (9.4-12.4); Monocytes Absolute Auto 1.1 X10*3/uL (0.1-1.2); Monocytes Percent Auto 9.6 % (2-11); Neutrophils Absolute Auto 6.3 x10*3/uL (2.0-8.3); Neutrophils Percent Auto 52.7 % (45-73); Platelet Count 264 X10*3/uL (160-400); Red Blood Count 5.35 X10*6/uL (4.60-5.80); Red Cell Distribution Width 11.9 % (11.0-16.0); White Blood Count 11.9 X10*3/uL (4.8-10.8)
[2024-12-25 20:32] LABS: Appearance Urine Clear; Color Urine Yellow; Glucose Urine UA >=1000 mg/dL (Negative); Leukocyte Esterase Urine Negative (Negative); Nitrite Urine Negative (Negative); Specific Gravity - Urine >= 1.030 (1.005-1.025); UMIC TRIGGER UACC YES; Urine Blood Negative (Negative); Urine Ketones Trace mg/dL (Negative); Urine Protein Negative (Neg-Trace)
[2024-12-25 20:37] LABS: Alanine Aminotransferase 23 U/L (0-40); Albumin Level 4.2 g/dL (3.5-5.0); Alkaline Phosphatase 64 U/L (39-117); Anion Gap 13 (12-20); Aspartate Amino Transferase 20 U/L (5-37); Bilirubin Total 0.5 mg/dL (0.0-1.0); Blood Urea Nitrogen 12 mg/dL (9-16); Calcium 9.7 mg/dL (8.4-10.2); Carbon Dioxide 24 mmol/L (22-29); Chloride 108 mmol/L (96-108); Creatinine Clr Calc Pharmacy 218.1; Estimated Glomerular Filt Rate > 60; Glucose Fasting 191 mg/dL (60-99); Magnesium 1.6 mg/dL (1.6-2.6); Potassium 3.8 mmol/L (3.3-5.1); Sodium 141 mmol/L (135-145); Total Protein 6.8 g/dL (6.5-8.0)
[2024-12-25 22:42] LABS: Bacteria Urine None Seen (None Seen); Calcium Oxalate Crystals Urine Present; Hyaline Casts Urine 0-2 /LPF (0-2); RBC Urine 0-2 /HPF (0-2); Squamous Epithelial Cell Urine 0-2 /HPF (0-2); WBC Urine 0-5 /HPF (0-5)
== END 2024-12-26 00:36 | disposition left against medical advice (07) ==
LOC: HO.ED 12-26 00:23
PROVIDERS: Physician Assistant Medical; Emergency Provider Emergency Medicine
DX: R11.2 Nausea with vomiting, unspecified (principal); T67.1XXA Heat syncope, initial encounter; R42 Dizziness and giddiness; E86.0 Dehydration; E11.9 Type 2 diabetes mellitus without complications; F17.210 Nicotine dependence, cigarettes, uncomplicated; Z79.899 Other long term (current) drug therapy; Z79.4 Long term (current) use of insulin
CPT/HCPCS: 36415; 80053; 81001; 81003; 82550; 82947; 83735; 85025; 93005; 99283

== ENCOUNTER → 2024-12-25 18:38 | Outpatient (BNV) | payer MEDICAID, SELFPAY | PROVIDERS: Emergency Provider Emergency Medicine; Visit Provider Internal Medicine | DX: R00.0 Tachycardia, unspecified (principal) | CPT/HCPCS: 93010 ==

== ENCOUNTER 2025-01-23 18:35 | Emergency (ER) | payer MEDICAID, SELFPAY ==
[2025-01-23 18:44] VITALS: BP 140/77; BP 156/94; PULSE 109; PULSE 96; RESP 18; TEMP 36.7; O2SAT 96; O2SAT 98; BMI 55.4
[2025-01-23 20:41] LABS: Alanine Aminotransferase 44 U/L (0-40); Albumin Level 4.6 g/dL (3.5-5.0); Alkaline Phosphatase 77 U/L (39-117); Anion Gap 17 (12-20); Aspartate Amino Transferase 32 U/L (5-37); Blood Urea Nitrogen 13 mg/dL (9-16); Calcium 10.9 mg/dL (8.4-10.2); Carbon Dioxide 22 mmol/L (22-29); Chloride 103 mmol/L (96-108); Creatinine Clr Calc Pharmacy 181.3; Estimated Glomerular Filt Rate > 60; Potassium 3.9 mmol/L (3.3-5.1); Sodium 138 mmol/L (135-145); Total Protein 7.7 g/dL (6.5-8.0)
[2025-01-23 20:47] LABS: Appearance Urine Turbid; Glucose Urine UA >=1000 mg/dL (Negative); PH 7.0 (5.0-9.0); Specific Gravity - Urine >= 1.030 (1.005-1.025); UMIC TRIGGER UACC YES
[2025-01-23 20:56] LABS: Cannabinoid Screen Urine POSITIVE (Not Detect)
[2025-01-23 21:09] LABS: NRBC Abs Auto 0.000 X10*3/uL (0.0-0.012); NRBC Pct Auto 0.0 /100WBC (0.0-0.2); PLT CLUMP 1; Red Blood Count 5.69 X10*6/uL (4.60-5.80); SCAN SMEAR FLAG 1
[2025-01-23 21:11] LABS: Hematocrit 47.8 % (42.0-52.0); Hemoglobin 16.7 g/dl (14.0-18.0); Imm Gran Abs Auto 0.04 X10*3/uL (0.00-0.03); Imm Gran Pct Auto 0.3 % (0.0-0.4); Lymphocytes Absolute Auto 4.0 X10*3/uL (1.2-4.9); MANUAL DIFF FLAG SCAN; Mean Corpuscular HGB Conc 34.9 g/dl (31.0-36.0); Mean Corpuscular Hemoglobin 29.3 pg (27.0-33.0); Mean Corpuscular Volume 84.0 fL (80.0-98.0)
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
[2025-01-23 21:45] LABS: Platelet Count 255 X10*3/uL (160-400); White Blood Count 11.7 X10*3/uL (4.8-10.8)
[2025-01-23 22:15] LABS: Glucose, Whole Blood 350 mg/dL (60-115)
--- NOTE | 2025-01-23 23:31 | PC.NURSE ---
Assumed care of this Pt at 2315.
--- NOTE | 2025-01-24 00:29 | ED_ITS ---
HPI - Psych General Chief Complaint: Psychiatric Symptoms Stated Complaint: SI Time Seen by Provider: 01/23/25 21:36 Source: patient Mode of arrival: ambulatory Limitations: no limitations History of Present Illness ED Provider: HPI Narrative: Patient from senior care with a history of depression borderline personality disorder type 2 diabetes and asthma was fooling around and passed a SI statements to other staff and his mother in the senior care patient's said that he was fooling around and did not mean it says that he is in a good mood and wants to go back Related Data Home Medications ?Medication ?Instructions ?Recorded ?Confirmed divalproex 500 mg tablet,delayed 500 mg PO DAILY 08/1401/23/25 release divalproex 500 mg tablet,delayed 1,000 mg PO BEDTIME 0 02/19/23 01/23/25 release bupropion HCl 150 mg 24 hr tablet, 300 mg PO QAM depre ssive disorder 03/12/23 01/23/25 extended release fenofibrate micronized 43 mg 43 mg PO DAILY 03/12/23 0 01/23/25 capsule hydroxyzine HCl 50 mg tablet 50 mg PO TID PRN panic at tack 03/12/23 01/23/25 insulin degludec 200 unit/mL (3 160 unit subcut DAILY 03/12/23 01/23/25 mL) subcutaneous pen (Tresiba FlexTouch U-200 insulin) lorazepam 1 mg tablet 1 mg PO BID PRN Anxiety 09/03/2601/23/25 metformin 500 mg tablet,extended 1,000 mg PO BID 03/1201/23/25 release 24 hr paliperidone palmitate 234 mg/1.5 234 mg IM QMONTH 03/2601/23/25 mL intramuscular syringe (Invega Sustenna) prazosin 1 mg capsule 2 mg PO BEDTIME nightmares 0 03/12/23 01/23/25 rosuvastatin 20 mg tablet 20 mg PO DAILY 03/12/2301/02 trazodone 150 mg tablet 150 mg PO BEDTIME PRN Insomn ia 03/12/23 01/23/25 insulin aspart U-100 100 unit/mL 10 unit subcut BID 01/23/25 (3 mL) subcutaneous pen (Novolog FlexPen U-100 Insulin aspart) insulin degludec 200 unit/mL (3 160 unit subcut DAILY 01/23/25 01/23/25 mL) subcutaneous pen (Tresiba FlexTouch U-200 insulin) olanzapine 5 mg tablet (Zyprexa) 5 mg PO DAILY PRN Anx iety 01/23/25 01/23/25 paliperidone 3 mg tablet,extended 3 mg PO DAILY 01/23/25 release 24 hr (Invega) semaglutide 0.25 mg or 0.5 mg (2 0.25 mg subcut QWEEK 01/23/25 01/23/25 mg/3 mL) subcutaneous pen injector (Ozempic) semaglutide 0.25 mg or 0.5 mg (2 0.5 mg subcut QWEEK 0 01/23/25 01/23/25 mg/3 mL) subcutaneous pen injector (Ozempic) Allergies Allergy/AdvReac Type Severity Reaction Status Date / Time No Known Allergies (No Known Allergy Verified 01/23/25 18:52 Allergies*) Review of Systems 2 Review of Systems: Yes all other systems are reviewed and are negative PMFSH Past Medical History Medical History Hyperglycemia 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 Diabetes type 2, uncontrolled Bipolar disorder with psychotic features PTSD (post-traumatic stress disorder) Concussion Asthma Depression Depression Bipolar disorder Anxiety Diabetes mellitus, type 2 Social History Social History Household Members: Family Household Members Other:: mom and sister Housing: Apartment Do you presently have visiting nurse or other home services: No Alcohol intake: current Alcohol intake frequency: holidays/special occasions only Alcohol type: beer, wine and hard liquor Patient Tobacco Use Status: Current everyday Tobacco user Tobacco use type: Cigarette and Smokeless Tobacco Cigarette Packs Per Day: 3 Cigarettes Per Day: 60.0 Years Smoked: 4 years e-Cigarette/Vaping Use: Currently Using Second Hand Smoke Exposure: Yes Substance Use Type: Caffiene Advance Directives: No Advance Directives Information Provided: No Do you have a plan to hurt others: No Plan service: No Current occupational status: disabled 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 Oriented X3. No acute distress. Eyes: PERRLA, No Nystagmus ENT: Pharynx normal. Oral Mucosa moist Neck: Normal inspection. Neck supple. CVS: Normal heart rate and rhythm. Pulses normal. Respiratory: No respiratory distress. Equal air entry bilateral, no wheezing/rales/rhonchi Abdomen: Soft and nontender. Bowel sounds are present, no mass palpable, no CVA tenderness Skin: Skin warm and dry. Normal skin color. Normal skin turgor. Extremities: No lower extremity edema. No calf tenderness psych: Stable mood denies SI or HI no delusional hallucinate Neuro: Oriented X 3. No motor deficit. No sensory deficit.No cerebellar signs , cranial nerves II-XII intact Course Reevaluation(s) Reevaluation #1: I, Dr. Bailey have take over the care of this patient, I reviewed pertinent blood work and imaging, re-evaluated the patient when appropriate. Time: 08:13 Reevaluation #2: can be discharged back to senior care, senior care has no concerns about him retuning there and guardian agrees to discharge. Time: 09:49 Medications Administered Generic Name Dose Route Start Last Admin Trade Name Larryq PRN Reason Stop Dose Admin Atorvastatin Calcium 80 mg 01/24/25 09:00 01/24/25 09:29 Atorvastatin Calcium 80 Mg Tablet PO 80 mg DAILY GRETA Administration Bupropion HCl 300 mg 01/24/25 09:00 01/24/25 09:29 Bupropion Hcl Xl 300 Mg Tab.Er.24h PO 300 mg DAILY GRETA Administration Divalproex Sodium 500 mg 01/24/25 09:00 01/24/25 09:29 Divalproex Sodium 500 Mg Tablet.Dr PO 500 mg DAILY GRETA Administration Fenofibrate 54 mg 01/24/25 09:00 01/24/25 09:35 Fenofibrate 54 Mg Tablet PO Not Given DAILY GRETA Insulin Glargine 112 unit 01/24/25 09:00 01/24/25 09:30 Insulin Glargine,Hum.Rec.Anlog 100 Unit/Ml 10 Ml Vial SUBCUT 112 unit DAILY GRETA Administration Insulin Human Lispro 10 unit 01/24/25 09:00 01/24/25 09:30 Insulin Lispro 100 Unit/Ml 3 Ml Vial SUBCUT 10 unit BID GRETA Administration Metformin HCl 1,000 mg 01/24/25 09:00 01/24/25 09:29 Metformin Hcl Er 500 Mg Tab.Er.24h PO 1,000 mg BID GRETA Administration Paliperidone 3 mg 01/24/25 09:00 01/24/25 09:35 Paliperidone Er 3 Mg Tab.Er.24 PO Not Given DAILY GRETA Discontinued Medications Generic Name Dose Route Start Last Admin Trade Name Geena PRN Reason Stop Dose Admin Insulin Human Lispro 12 unit 01/23/25 21:45 01/23/25 22:15 Insulin Lispro 100 Unit/Ml 3 Ml Vial SUBCUT 01/23/25 21:46 12 unit ONCE ONE Administration Medical Decision Making Medical Decision Making MDM Narrative: Patient's dementia with suicidal ideation at senior care denies at this time will consult care team for evaluation patient placed on observation at 01:30an of 01/24/2025 Lab Data MDM Lab Attestation statement: I reviewed the patient's lab results. 01/23/25 20:12 01/23/25 20:12 Labs: Lab Results 01/23/25 01/23/25 01/23/25 Range/Units 20:12 20:13 22:11 WBC 11.7 H (4.8-10.8) X10*3/uL RBC 5.69 (4.60-5.80) X10*6/uL Hgb 16.7 (14.0-18.0) g/dl Hct 47.8 (42.0-52.0) % MCV 84.0 (80.0-98.0) fL MCH 29.3 (27.0-33.0) pg MCHC 34.9 (31.0-36.0) g/dl RDW 12.0 (11.0-16.0) % Plt Count 255 (160-400) X10*3/uL MPV 11.5 (9.4-12.4) fL Immature Gran % (Auto) 0.3 (0.0-0.4) % Neut % (Auto) 54.6 (45-73) % Lymph % (Auto) 34.4 (20-40) % Sutton % (Auto) 9.2 (2-11) % Eos % (Auto) 1.2 (0-4) % Baso % (Auto) 0.3 (0-2) % Lymph # (Auto) 4.0 (1.2-4.9) X10*3/uL [place] # (Auto) 1.1 (0.1-1.2) X10*3/uL Eos # (Auto) 0.1 (0.0-0.4) X10*3/uL Baso # (Auto) 0.0 (0.0-0.2) X10*3/uL Abs Immat Gran (auto) 0.04 H (0.00-0.03) X10*3/uL Absolute Neuts (auto) 6.4 (2.0-8.3) x10*3/uL Absolute Nucleated RBC 0.000 (0.0-0.012) X10*3/uL Nucleated RBC % (auto) 0.0 (0.0-0.2) /100WBC Smear Tech's Comments VERIFIED Sodium 138 (135-145) mmol/L Potassium 3.9 (3.3-5.1) mmol/L Chloride 103 (96-108) mmol/L Carbon Dioxide 22 (22-29) mmol/L Anion Gap 17 (12-20) BUN 13 (9-16) mg/dL Creatinine 0.99 (0.5-1.4) mg/dL Estim Creat Clear Calc 181.3 Estimated GFR > 60 POC Glucose 350 H* (60-115) mg/dL Random Glucose 378 H* (60-115) mg/dL Calcium 10.9 H D (8.4-10.2) mg/dL Total Bilirubin 0.6 (0.0-1.0) mg/dL AST 32 (5-37) U/L ALT 44 H (0-40) U/L Alkaline Phosphatase 77 (39-117) U/L Total Protein 7.7 (6.5-8.0) g/dL Albumin 4.6 (3.5-5.0) g/dL Urine Color Yellow Urine Appearance Turbid Urine pH 7.0 (5.0-9.0) Ur Specific [place] >= 1.030 H (1.005-1.025) Urine Protein Negative (Neg-Trace) mg/dL Urine Glucose (UA) >=1000 H (Negative) mg/dL Urine Ketones Negative (Negative) mg/dL Urine Blood Negative (Negative) Urine Nitrite Negative (Negative) Ur Leukocyte Esterase Negative (Negative) Urine RBC 0-2 (0-2) /HPF Urine WBC 0-5 (0-5) /HPF Ur Squamous Epith Cells 0-2 (0-2) /HPF Urine Bacteria None Seen (None Seen) Hyaline Casts 0-2 (0-2) /LPF Urine Opiates Screen Not Detected (Not Detect) Ur Buprenorphine Scrn Not Detected (Not Detect) ng/mL Ur Oxycodone Screen Not Detected (Not Detect) ng/mL Urine Methadone Screen Not Detected (Not Detect) ng/mL Urine Fentanyl Screen Not Detected (Not Detect) Ur Barbiturates Screen Not Detected (Not Detect) Valproic Acid 47.4 L (50.0-100.0) mcg/mL Ur Phencyclidine Scrn Not Detected (Not Detect) Ur Amphetamines Screen Not Detected (Not Detect) U Benzodiazepines Scrn Not Detected (Not Detect) Urine Cocaine Screen Not Detected (Not Detect) U Marijuana (THC) Screen POSITIVE H (Not Detect) Ethyl Alcohol < 10 mg/dL 01/24/25 01/24/25 Range/Units 06:32 08:48 WBC (4.8-10.8) X10*3/uL RBC (4.60-5.80) X10*6/uL Hgb (14.0-18.0) g/dl Hct (42.0-52.0) % MCV (80.0-98.0) fL MCH (27.0-33.0) pg MCHC (31.0-36.0) g/dl RDW (11.0-16.0) % Plt Count (160-400) X10*3/uL MPV (9.4-12.4) fL Immature Gran % (Auto) (0.0-0.4) % Neut % (Auto) (45-73) % Lymph % (Auto) (20-40) % Sutton % (Auto) (2-11) % Eos % (Auto) (0-4) % Baso % (Auto) (0-2) % Lymph # (Auto) (1.2-4.9) X10*3/uL Sutton # (Auto) (0.1-1.2) X10*3/uL Eos # (Auto) (0.0-0.4) X10*3/uL Baso # (Auto) (0.0-0.2) X10*3/uL Abs Immat Gran (auto) (0.00-0.03) X10*3/uL Absolute Neuts (auto) (2.0-8.3) x10*3/uL Absolute Nucleated RBC (0.0-0.012) X10*3/uL Nucleated RBC % (auto) (0.0-0.2) /100WBC Smear Tech's Comments Sodium (135-145) mmol/L Potassium (3.3-5.1) mmol/L Chloride (96-108) mmol/L Carbon Dioxide (22-29) mmol/L Anion Gap (12-20) BUN (9-16) mg/dL Creatinine (0.5-1.4) mg/dL Estim Creat Clear Calc Estimated GFR POC Glucose 362 H* 316 H (60-115) mg/dL Random Glucose (60-115) mg/dL Calcium (8.4-10.2) mg/dL Total Bilirubin (0.0-1.0) mg/dL AST (5-37) U/L ALT (0-40) U/L Alkaline Phosphatase (39-117) U/L Total Protein (6.5-8.0) g/dL Albumin (3.5-5.0) g/dL Urine Color Urine Appearance Urine pH (5.0-9.0) Ur Specific [place] (1.005-1.025) Urine Protein (Neg-Trace) mg/dL Urine Glucose (UA) (Negative) mg/dL Urine Ketones (Negative) mg/dL Urine Blood (Negative) Urine Nitrite (Negative) Ur Leukocyte Esterase (Negative) Urine RBC (0-2) /HPF Urine WBC (0-5) /HPF Ur Squamous Epith Cells (0-2) /HPF Urine Bacteria (None Seen) Hyaline Casts (0-2) /LPF Urine Opiates Screen (Not Detect) Ur Buprenorphine Scrn (Not Detect) ng/mL Ur Oxycodone Screen (Not Detect) ng/mL Urine Methadone Screen (Not Detect) ng/mL Urine Fentanyl Screen (Not Detect) Ur Barbiturates Screen (Not Detect) Valproic Acid (50.0-100.0) mcg/mL Ur Phencyclidine Scrn (Not Detect) Ur Amphetamines Screen (Not Detect) U Benzodiazepines Scrn (Not Detect) Urine Cocaine Screen (Not Detect) U Marijuana (THC) Screen (Not Detect) Ethyl Alcohol mg/dL Discharge Plan Discharge Clinical Impression: Depression Patient Disposition: Home, Self-Care Additional Instructions: You were seen in our Emergency Department today for treatment of a behavioral health issue. It is important after your visit that you follow up with either your behavioral health provider or a primary care doctor within 7 days.? If you have trouble finding a therapist you can reach out to [address] [phone] The [employer] Suicide and Crisis Lifeline can be reached 7 days a week 24 hours a day.? Call [phone] to speak with someone.? Return for any worsening symptoms or concerns such as thoughts of self harm or harm to others. Please call 911 if you feel your mental health is worsening.? Prescriptions: No Action divalproex 500 mg tablet,delayed release (DR/EC) 500 mg PO DAILY divalproex 500 mg tablet,delayed release (DR/EC) 1,000 mg PO BEDTIME prazosin 1 mg capsule 2 mg PO BEDTIME bupropion HCl 150 mg tablet extended release 24 hr 300 mg PO QAM Invega Sustenna 234 mg/1.5 mL syringe 234 mg IM QMONTH lorazepam 1 mg tablet 1 mg PO BID PRN (Reason: Anxiety) insulin degludec [Tresiba FlexTouch U-200] 200 unit/mL (3 mL) insulin pen 160 unit subcut DAILY hydroxyzine HCl 50 mg tablet 50 mg PO TID PRN (Reason: panic attack) trazodone 150 mg tablet 150 mg PO BEDTIME PRN (Reason: Insomnia) metformin 500 mg tablet extended release 24 hr 1,000 mg PO BID rosuvastatin 20 mg tablet 20 mg PO DAILY fenofibrate micronized 43 mg capsule 43 mg PO DAILY insulin aspart U-100 [Novolog FlexPen U-100 Insulin] 100 unit/mL (3 mL) Insulin Pen 10 unit SUBCUT BID paliperidone [Invega] 3 mg tablet extended release 24hr 3 mg PO DAILY Ozempic 0.25 mg or 0.5 mg (2 mg/3 mL) Pen Injector 0.5 mg SUBCUT QWEEK Ozempic 0.25 mg or 0.5 mg (2 mg/3 mL) Pen Injector 0.25 mg SUBCUT QWEEK Rx Instructions: for 4 weeks olanzapine [Zyprexa] 5 mg Tablet 5 mg PO DAILY PRN (Reason: Anxiety) insulin degludec [Tresiba FlexTouch U-200] 200 unit/mL (3 mL) insulin pen 160 unit subcut DAILY Interventions: Lee-Suicide Risk Severity Scale Last Done: 01/23/25 20:48 Print Language: Kyrgyz
[2025-01-24 06:27] VITALS: BP 145/60; PULSE 78; RESP 18; TEMP 36.9; O2SAT 96
[2025-01-24 06:35] LABS: Glucose, Whole Blood 362 mg/dL (60-115)
--- NOTE | 2025-01-24 06:38 | PC.NURSE ---
Pt awake, ambulated to BR independently with steady gait. Pt POC 362, provider Deana Henry made aware.
[2025-01-24 08:52] LABS: Glucose, Whole Blood 316 mg/dL (60-115)
[2025-01-24] MEDS: buPROPion HCl XL 300 MG TAB.ER.24H PO (09:29)
[2025-01-24] MEDS: Insulin Glargine,Hum.rec.anlog 100 UNIT/ML 10 ML VIAL 112 UNIT SUBCUT (09:30)
--- NOTE | 2025-01-24 09:35 | PC.NURSE ---
medicated as ordered, 2 meds not given, pt aware and will take at home as pt is being discharged
[2025-01-24 10:17] VITALS: BP 145/60; PULSE 78; RESP 18; TEMP 36.9; O2SAT 96
== END 2025-01-24 10:17 | disposition home or self-care (01) ==
PROVIDERS: Emergency Provider Internal Medicine
DX: F33.1 Major depressive disorder, recurrent, moderate (principal); R45.851 Suicidal ideations; E11.9 Type 2 diabetes mellitus without complications; F17.210 Nicotine dependence, cigarettes, uncomplicated; Z79.4 Long term (current) use of insulin; Z51.81 Encounter for therapeutic drug level monitoring; Z79.899 Other long term (current) drug therapy
CPT/HCPCS: 36415; 80053; 80164; 80307; 81001; 82947; 85025; 99284; S9485

== ENCOUNTER 2025-03-14 09:41 | Emergency (ER) | payer MEDICAID, SELFPAY ==
--- NOTE | ~2025-03-14 | XR_ITS ---
EXAMINATION: XR LUMBOSACRAL SPINE CLINICAL INFORMATION: back pain COMPARISON: November 09, 2024 TECHNIQUE: Three views of the lumbosacral spine. FINDINGS: Calcifications in the pelvis are likely phleboliths, stable. There are 5 nonrib-bearing lumbar segments. Vertebral body height and alignment is preserved. Disc spaces are preserved. There is partial disc formation at S1-S2. XR/XR lumbar spine 2-3V IMPRESSION: Stable and unremarkable examination. Electronically signed by: Sheldon Archuleta MD 03/14/2025 11:17 AM EDT
[2025-03-14 09:56] VITALS: BP 140/89; PULSE 92; RESP 18; TEMP 36.2; O2SAT 98; BMI 55.4
[2025-03-14 10:39] LABS: MANUAL DIFF FLAG NO
[2025-03-14 10:41] LABS: Hematocrit 42.3 % (42.0-52.0); Hemoglobin 15.1 g/dl (14.0-18.0); Imm Gran Abs Auto 0.03 X10*3/uL (0.00-0.03); Imm Gran Pct Auto 0.3 % (0.0-0.4); Lymphocytes Absolute Auto 3.5 X10*3/uL (1.2-4.9); Mean Corpuscular HGB Conc 35.7 g/dl (31.0-36.0); Mean Corpuscular Hemoglobin 29.5 pg (27.0-33.0); Mean Corpuscular Volume 82.6 fL (80.0-98.0); NRBC Abs Auto 0.000 X10*3/uL (0.0-0.012); NRBC Pct Auto 0.0 /100WBC (0.0-0.2); Platelet Count 224 X10*3/uL (160-400); Red Blood Count 5.12 X10*6/uL (4.60-5.80); White Blood Count 10.7 X10*3/uL (4.8-10.8)
[2025-03-14 10:55] LABS: Alanine Aminotransferase 19 U/L (0-40); Albumin Level 4.0 g/dL (3.5-5.0); Alkaline Phosphatase 69 U/L (39-117); Anion Gap 13 (12-20); Aspartate Amino Transferase 17 U/L (5-37); Blood Urea Nitrogen 10 mg/dL (9-16); Calcium 9.4 mg/dL (8.4-10.2); Carbon Dioxide 23 mmol/L (22-29); Chloride 106 mmol/L (96-108); Creatinine Clr Calc Pharmacy 227.2; Estimated Glomerular Filt Rate > 60; Potassium 3.8 mmol/L (3.3-5.1); Sodium 138 mmol/L (135-145); Total Protein 6.5 g/dL (6.5-8.0)
== END 2025-03-14 14:22 | disposition left against medical advice (07) ==
LOC: HO.ED 14:17
PROVIDERS: Emergency Provider Emergency Medicine
DX: R11.0 Nausea (principal); M54.50 Low back pain, unspecified; R10.9 Unspecified abdominal pain; Z79.899 Other long term (current) drug therapy
CPT/HCPCS: 36415; 72100; 80053; 85025; 99281

== ENCOUNTER → 2025-03-14 10:45 | Outpatient (BNV) | payer MEDICAID, SELFPAY | PROVIDERS: Visit Provider Radiology Diagnostic Radiology | DX: M54.50 Low back pain, unspecified (principal) | CPT/HCPCS: 72100 ==

== ENCOUNTER 2025-06-08 12:18 | Emergency (ER) | payer MEDICAID, SELFPAY ==
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
[2025-06-08 12:25] VITALS: BP 125/77; BP 130/90; PULSE 101; PULSE 110; RESP 20; TEMP 35.9; O2SAT 96; O2SAT 98; BMI 47.9
--- NOTE | 2025-06-08 12:31 | PC.NURSE ---
Patient presenting to ED from residential via EMS for back pain. Patient states he has 1 herniated disc and 2 slipped disc that are known. He is rating pain 6/10 that has been ongoing for years. VSS. Resting bed, no complaints at this time.
--- OUTSIDE RECORDS SUMMARY | 2025-06-08 12:39 | XMS_ITS | Encounter Summary ---
Author Organization [employer] Address [address] [place] [address] 7t [place] [address] Care Team Providers Care Construction Project Engineer Name Role Phone Gricel Daniel MD Primary Care Provider [phone] Kalina Coyle PharmD Unavailable [phone] Reason for Visit * Reason Onset Date Comments PT1 09/27/2022 Encounter Details Date Type Department Care Team ([facility] st Contact Info) Description 09/27/2022 Telephone [facility] [address] [place], [place] [phone] Gricel Daniel MD 230 [place], [place] [phone] PT1 Social History Tobacco Use Types Packs/Day [...] requesting a PT1 PT1 Name of facility: [facility] Specialty: Diabetes Appt Location: [address] [place] [address] Date: October 05, 2022 Time: 12:45 pm fax: n/a Phone: n/a wheelchair: n/a Radiation Safety Officer: Yes documented in this encounter Plan of Treatment Upcoming Encounters Date Type Department Care Team (Late st Contact Info) Description 06/19/2025 3:00 PM EST Medication Management [facility] [address] [place] [phone] Kalina Coyle PharmD [address] [place] [address] 07/03/2025 9:45 AM EST Office Visit [facility] [address] [place] [address] Gricel Daniel MD [address] [place] [address] documented as of this encounter Visit Diagnoses Not on filedocumented in this encounter Care Teams Construction Project Engineer Relationship Specialty Start Date End Date Gricel Daniel MD [address] [place] [phone] PCP - General Family Medicine 08/20/20 Kalina Coyle PharmD [address] [place] [address] Pharmacist Internal Medicine 12/08/23 Layla Hubbard Disbursing Agent 06/15/23 09/14/23 documented as of this encounter
--- OUTSIDE RECORDS SUMMARY | 2025-06-08 12:39 | XMS_ITS | Encounter Summary ---
Author Organization [employer] Address [address] [place] [address] 7t [place] [address] Care Team Providers Care Oral Communication Instructor Name Role Phone Gricel Daniel MD Primary Care Provider [phone] Kalina Coyle PharmD Unavailable [phone] Reason for Visit * Reason Comments Med Refill Encounter Details Date Type Department Care Team ([facility] st Contact Info) Description 05/13/2025 Refill [facility] 230 [place], [place] [phone] Gricel Daniel MD 230 [place] [address] Social History Tobacco Use Types Packs/Day Years [...] Description 06/19/2025 3:00 PM EST Medication Management [address] [address] Puia, Kalina, PharmD [address] [place] [address] 07/03/2025 9:45 AM EST Office Visit [address] [address] Gricel Daniel MD [address] [place] [address] documented as of this encounter Goals Goal Patient Goal Type Associated Problems Recent Progress Patient-Stated? Author Drink less soda, juice, and other sugary beverages Diet No Puia, Kalina, PharmD Hemoglobin A1c < 7 Result Component 12.5(04/02/20 25 3:13 PM EDT) No Puia, Kalina, PharmD Record your blood sugar as directed Result Component No Puia, Kalina, PharmD documented as of this encounter Visit Diagnoses Not on filedocumented in this encounter Additional Health Concerns Assessment Noted Time PHQ-9 Depression Total Score: 5 12/18/19 23 2:41 PM EDT documented as of this encounter Care Teams Oral Communication Instructor Relationship Specialty Start Date End Date Gricel Daniel MD [address] [place] [phone] PCP - General Family Medicine 08/20/20 Kalina Coyle, JiaD [address] [place] [address] Pharmacist Internal Medicine 12/08/23 documented as of this encounter
--- OUTSIDE RECORDS SUMMARY | 2025-06-08 12:39 | XMS_ITS | Encounter Summary ---
Author Organization [employer] Address [address] [facility] 7t [place] [address] Care Team Providers Care Packaging Materials Inspector Name Role Phone Gricel Daniel MD Primary Care Provider [phone] Kalina Coyle PharmD Unavailable [phone] Reason for Visit * Reason Comments Med Refill Encounter Details Date Type Department Care Team ([facility] st Contact Info) Description 10/13/[address] [facility] [address] [place], [place] [phone] Gricel Daniel MD 230 [place] [address] Type 2 diabetes mellitus with obesity ([facility]/HCC) ([facility]) Social History Tobacco Use Types [...] Description 06/19/2025 3:00 PM EST Medication Management [facility] [address] [place] [address] Kalina Coyle PharmD [address] [place] [address] 07/03/2025 9:45 AM EST Office Visit [facility] [address] [place] [address] Gricel Daniel MD [address] [place] [address] documented as of this encounter Visit Diagnoses Diagnosis Type 2 diabetes mellitus with obesity documented in this encounter Additional Health Concerns Assessment Noted Time PHQ-9 Depression Total Score: 5 12/18/19 23 2:41 PM EDT documented as of this encounter Care Teams Packaging Materials Inspector Relationship Specialty Start Date End Date Gricel Daniel MD [address] [place] [address] [phone] PCP - General Family Medicine 08/20/20 Kalina Coyle PharmD [address] [place] [phone] Pharmacist Internal Medicine 12/08/23 documented as of this encounter
--- OUTSIDE RECORDS SUMMARY | 2025-06-08 12:39 | XMS_ITS | Encounter Summary ---
Author Organization [employer] Address [address] [facility] 7t [place] [address] Care Team Providers Care Wood Finisher Name Role Phone Gricel Daniel MD Primary Care Provider [phone] Kalina Coyle PharmD Unavailable [phone] Encounter Details Date Type Department Care Team (Late st Contact Info) Description 09/19/2023 Orders Only [facility] 230 [place], [place] [phone] Gricel Daniel MD 230 [place], [place] [phone] Chronic midline low back pain without sciatica [...] Description 06/19/2025 3:00 PM EST Medication Management [facility] [address] [place] [address] [phone] Kalina Coyle PharmD [address] [place] [address] [phone] 07/03/2025 9:45 AM EST Office Visit [address] [phone] Gricel Daniel MD [address] [place] [address] [phone] documented as of this encounter Procedures Procedure [...] AM EDT Narrative 12/27/2023 9:43 AM EDT [address] [address] XRay Report Signed Patient: Williams Fontanez MR#: [id number] [birth year] : 2000 Acct:[id number] Age/Sex: 23 / M ADM Date: 12/14/23 Loc: [facility] Attending Dr: Gricel Daniel MD Ordering Physician: Gricel Daniel Date of Service: 12/14/23 Procedure(s): XR lumbar spine 4V min Accession Number(s): [id number] cc: Gricel Daniel EXAMINATION: XR LUMBOSACRAL SPINE [...] in OV> 12/27/23 0940 DD/ 1101 TD/TT: Gun Striper: Procedure Note Donotuseinterpreter, Image - 12/27/[address] [address] XRay Report Signed Patient: Williams Fontanez LMR#: [id number] [birth year] : 2000Acct:[id number] Age/Sex: 23 / MADM Date: 12/14/23 Loc: .[facility] Attending Dr: Gricel Daniel MD Ordering Physician: Gricel Daniel Date of Service: 12/14/23 Procedure(s): XR lumbar spine 4V min Accession Number(s): [id number] cc: Gricel Daniel EXAMINATION: XR LUMBOSACRAL SPINE [...] in OV> 12/27/23 0940 DD/ 1101 TD/TT: Gun Striper: Gricel Daniel MD IMG XR PROCEDURES Edited Resul t - Final documented in this encounter Visit Diagnoses Diagnosis Chronic midline low back pain without sciatica- Primary documented in this encounter Additional Health Concerns Assessment Noted Time PHQ-9 Depression Total Score: 5 12/18/19 23 2:41 PM EDT documented as of this encounter Care Teams Wood Finisher Relationship Specialty Start Date End Date Gricel Daniel MD 230 [place] [address] PCP - General Family Medicine 08/20/20 Kalina Coyle PharmD 230 [place] [address] Pharmacist Internal Medicine 12/08/23 documented as of this encounter
--- OUTSIDE RECORDS SUMMARY | 2025-06-08 12:39 | XMS_ITS | Encounter Summary ---
Author Organization [employer] Address [address] [place] [address] 7 [place] [address] Care Team Providers Care Skid Worker Name Role Phone Gricel Daniel MD Primary Care Provider [phone] Kalina Coyle PharmD Unavailable Reason for Referral * Consultation (Routine) - Closed Specialty Diagnoses / Procedures Referred By Contac t Referred To Contact Pharmacy Diagnoses Type 2 diabetes mellitus with obesity Gricel Daniel MD [address] [place] [address] Phone: tel: fax: Referral ID Status Reason Start Date Expiration Date V isits Requested Visits Authorized [id number] Closed Consult and Treat 04/12/2024 04/12/2025 6 6 Encounter Details Date Type Department Care Team (Late st Contact Info) Description 04/12/2024 Orders Only [facility] 230 [place], [place] [phone] Gricel Daniel MD 230 [place], [place] [phone] Type 2 diabetes mellitus with obesity (CMS/HCC) [...] Description 06/19/2025 3:00 PM EST Medication Management [facility] [address] [place] [address] Kalina Coyle, PharmD [address] [place] [address] 07/03/2025 9:45 AM EST Office Visit [facility] [address] [place] [address] Gricel Daniel MD [address] [place] [address] Scheduled Referrals Name Type Priority Associated Diagnoses Orde r Schedule Referral to Pharmacy CDTM Outpatient Referral Routine Type 2 diabetes mellitus with obesity (CMS/HCC) (CMS/HCC) Ordered: 04/12/2024 documented as of this encounter Goals Goal Patient Goal Type Associated Problems Recent Progress Patient-Stated? Author Drink less soda, juice, and other sugary beverages Diet No Kalina Coyle PharmD Hemoglobin A1c < 7 Result Component 12.5(04/02/20 25 3:13 PM EDT) No Kalina Coyle PharmD Record your blood sugar as directed Result Component No Kalina Coyle PharmD documented as of this encounter Visit Diagnoses Diagnosis Type 2 diabetes mellitus with obesity- Primary documented in this encounter Additional Health Concerns Assessment Noted Time PHQ-9 Depression Total Score: 5 12/18/19 23 2:41 PM EDT documented as of this encounter Care Teams Skid Worker Relationship Specialty Start Date End Date Gricel Daniel MD 230 [place] [address] PCP - General Family Medicine 08/20/20 Kalina Coyle PharmD 230 [place] [address] Pharmacist Internal Medicine 12/08/23 documented as of this encounter
--- OUTSIDE RECORDS SUMMARY | 2025-06-08 12:39 | XMS_ITS | Encounter Summary ---
Author Organization [employer] Address [address] [place] [address] 7t [place] [address] Care Team Providers Care Turkey Cleaner Name Role Phone Gricel Daniel MD Primary Care Provider [phone] Kalina Coyle PharmD Unavailable [phone] Reason for Visit * Reason Onset Date Comments Med Refill 09/26/2024 Encounter Details Date Type Department Care Team ([facility] st Contact Info) Description 09/26/2024 Telephone [facility] 230 [place], [place] [phone] Gricel Daniel MD 230 [place], [place] [phone] Med Refill Social History Tobacco Use Types [...] encounter Miscellaneous Notes * Telephone Encounter - Shlaini Rooney LPN - 09/26/2024 2:11 PM EDT Medication was sent to [facility] with 5 refills please advise patient to call pharmacy and transfer script to [facility]. * Telephone Encounter - Vannessa Mcdaniel - 09/26/2024 2:08 PM EDT Images from the original note were not included. TC from pt requesting medication refill. Medications needing refill : insulin degludec (Tresiba FlexTouch) 200 UNIT/ML injection To be sent to: [facility] [place] - [address] documented in this encounter Plan of Treatment Upcoming Encounters Date Type Department Care Team (Late st Contact Info) Description 06/19/2025 3:00 PM EST Medication Management [facility] [address] [place] [address] Kalina Coyle, PharmD 230 [place] [address] 07/03/2025 9:45 AM EST Office Visit [facility] [address] [place] [address] Gricel Daniel MD 230 [place] [address] documented as of this encounter Goals Goal [...] documented as of this encounter Care Teams Turkey Cleaner Relationship Specialty Start Date End Date Gricel Daniel MD [address] [place] [phone] PCP - General Family Medicine 08/20/20 YosiiaKalina, PharmD [address] [place] [address] Pharmacist Internal Medicine 12/08/23 documented as of this encounter
--- OUTSIDE RECORDS SUMMARY | 2025-06-08 12:39 | XMS_ITS | Encounter Summary ---
Author Organization [employer] Address [address] [place] [address] 7t [place] [address] Care Team Providers Care Director Of Industrial Relations Name Role Phone Gricel Daniel MD Primary Care Provider [phone] Kalina Coyle PharmD Unavailable [phone] Encounter Details Date Type Department Care Team (Late st Contact Info) Description 08/19/2022 Orders Only [facility] [address] [place] [address] [phone] Sammi Cortez MD 230 [place], [place] [phone] Type 2 diabetes mellitus with obesity (CMS/HCC) [...] 3:00 PM EST Medication Management [facility] [address] [place] [phone] PuiaKalina, PharmD 230 [place] [address] 07/03/2025 9:45 AM EST Office Visit [facility] 230 [place], [place] [phone] Gricel Daniel MD 230 [place] [address] documented as of this encounter Visit Diagnoses Diagnosis Type 2 diabetes mellitus with obesity- Primary documented in this encounter Care Teams Director Of Industrial Relations Relationship Specialty Start Date End Date Gricel Daniel MD [address] [place] [address] [phone] PCP - General Family Medicine 08/20/20 Kalina Coyle, Bisi [address] [place] [phone] Pharmacist Internal Medicine 12/08/23 Layla Hubbard Product Architect 06/15/23 09/14/23 documented as of this encounter
--- OUTSIDE RECORDS SUMMARY | 2025-06-08 12:39 | XMS_ITS | Encounter Summary ---
Author Organization [employer] Address [address] [facility] 7t [place] [address] Care Team Providers Care Energy Systems Engineer Name Role Phone Gricel Daneil MD Primary Care Provider [phone] Kalina Coyle PharmD Unavailable [phone] Encounter Details Date Type Department Care Team (Late st Contact Info) Description 03/02/[address] [facility] 230 [place], [place] [phone] Gricel Daniel MD 230 [place], [place] [phone] Muscle spasm (Primary Dx) Social History Tobacco [...] Description 06/19/2025 3:00 PM EST Medication Management [facility] [address] [place] [address] YosiiaKalina, PharmD [address] [place] [address] 07/03/2025 9:45 AM EST Office Visit [address] [address] Gricel Daniel MD [address] [place] [address] [phone] documented as of this encounter Goals Goal [...] documented as of this encounter Care Teams Energy Systems Engineer Relationship Specialty Start Date End Date Gricel Daniel MD [address] [place] [phone] PCP - General Family Medicine 08/20/20 Kalina Coyle, JiaD [address] [place] [address] Pharmacist Internal Medicine 12/08/23 documented as of this encounter
--- OUTSIDE RECORDS SUMMARY | 2025-06-08 12:39 | XMS_ITS | Clinical Summary ---
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 required. However, if recent HCV exposure is suspected, a test for HCV RNA (test code 02380) is suggested. For additional information please refer to http://education.8020select/faq/IAK02b3 (This link is being provided for informational/ educational purposes only.) 01/20/2022 3:57 PM EDT [facility] [employer]ERCIAL COLLECTIONS DRIVER HISTORICAL/NON ORDERABLE LABS Final Result Performing Organization Address [facility]/ZIP Co de Phone Number [facility] [address] * HIV 1/2 ANTIGEN/ANTIBODY,FOURTH GENERATION W/RFL (01/20/2022 3:57 PM EDT) HIV-1/2 ANTIGEN AND ANTIBODIES, 4TH GENERATION W/ REFLEX NON-REACT TAQUERIA NON-REACT TAQUERIA [facility] Comment: HIV-1 antigen and HIV-1/HIV-2 antibodies were not detected. There is no laboratory evidence of HIV infection. PLEASE NOTE: This information has been disclosed to you from records whose confidentiality may be protected by state law. If your state requires such protection, then the state law prohibits you from making any further disclosure of the information without the specific written consent of the person to whom it pertains, or as otherwise permitted by law. A general authorization for the release of medical or other information is NOT sufficient for this purpose. For additional information please refer to http://education.Amakem.[facility]/faq/RRV979 (This link is being provided for informational/ educational purposes only.) The performance of this assay has not been clinically validated in patients less than 2 years old. 01/20/2022 3:57 PM EDT [facility] LAB BLOOD ORDERABLES Final Re sult Performing Organization Address [facility] de Phone Number [facility] [address] from Last 3 Months or Most Recently Relevant to Health Maintenance Additional Health Concerns Active Problems Noted Date [...] 06/07/2025 Patient has chronic kidney disease 06/07/2025 [place] [facility] AD[facility] Care Teams Park Activities Coordinator Relationship Specialty Start Date End Date Gricel Daniel MD [address] [place] [address] PCP - General Family Medicine 08/20/20 Kalina Coyle, JiaD [address] [place] [phone] Pharmacist Internal Medicine 12/08/23
--- OUTSIDE RECORDS SUMMARY | 2025-06-08 12:39 | XMS_ITS | Encounter Summary ---
Author Organization [employer] Address [address] [facility] 7t [place] [address] Care Team Providers Care Forest Aide Name Role Phone Gricel Daniel MD Primary Care Provider [phone] Kalina Coyle PharmD Unavailable [phone] Reason for Visit * Reason Comments Med Refill Encounter Details Date Type Department Care Team ([facility] st Contact Info) Description 06/11/2024 Refill [facility] [address] [place], [place] [phone] Kalina Coyle, PharmD [address] [place] [address] Type 2 diabetes mellitus with obesity ([facility]/HCC) ([facility]) Social History Tobacco Use Types Packs/Day Years [...] Description 06/19/2025 3:00 PM EST Medication Management [address] [address] PuiaKingstonKalina, PharmD [address] [place] [address] 07/03/2025 9:45 AM EST Office Visit [address] [address] Gricel Daniel MD [address] [place] [address] documented as of this encounter Goals Goal [...] documented as of this encounter Care Teams Forest Aide Relationship Specialty Start Date End Date Gricel Daniel MD [address] [place] [address] PCP - General Family Medicine 08/20/20 Kalina Coyle, Bisi [address] [place] [address] Pharmacist Internal Medicine 12/08/23 documented as of this encounter
--- OUTSIDE RECORDS SUMMARY | 2025-06-08 12:39 | XMS_ITS | Encounter Summary ---
Author Organization [employer] Address [address] [facility] 7t [place] [address] Care Team Providers Care Guest Advisor Name Role Phone Gricel Daniel MD Primary Care Provider [phone] Kalina Coyle PharmD Unavailable [phone] Encounter Details Date Type Department Care Team ([facility] st Contact Info) Description 06/04/2025 Orders Only [facility] [address] [place], [place] [phone] Rogerio Hurt, DMD [address] [place] [address] Social History Tobacco Use Types Packs/Day Years [...] Description 06/19/2025 3:00 PM EST Medication Management [address] [address] YosiiaKalina, PharmD [address] [place] [address] 07/03/2025 9:45 AM EST Office Visit [address] [address] Gricel Daniel MD [address] [place] [phone] documented as of this encounter Goals Goal Patient Goal Type Associated Problems Recent Progress Patient-Stated? Author Drink less soda, juice, and other sugary beverages Diet No PuiaKingstonKalina, PharmD Hemoglobin A1c < 7 Result Component 12.5(04/02/20 25 3:13 PM EDT) No Puia, Kalina, PharmD Record your blood sugar as directed Result Component No Puia Kalina, PharmD Help patients manage their type 2 [...] Plan Patient has chronic kidney disease No BluRogerio DMD Patient has chronic kidney disease Care Plan Patient has chronic kidney disease No Rogerio Hurt DMD documented as of this encounter Visit Diagnoses Not on filedocumented in this encounter Additional Health Concerns Active [...] 06/04/2025 Patient has chronic kidney disease 06/04/2025 Assessment Noted Time PHQ-9 Depression Total Score: 5 12/18/19 23 2:41 PM EDT documented as of this encounter Care Teams Guest Advisor Relationship Specialty Start Date End Date Gricel Daniel MD [address] [place] [address] PCP - General Family Medicine 08/20/20 Kalina Coyle PharmD [address] [place] [address] Pharmacist Internal Medicine 12/08/23 documented as of this encounter
--- OUTSIDE RECORDS SUMMARY | 2025-06-08 12:39 | XMS_ITS | Encounter Summary ---
Author Organization [employer] Address [address] [place] [address] 7t [place] [address] Care Team Providers Care Multimedia Designer Name Role Phone Gricel Daniel MD Primary Care Provider [phone] Kalina Coyle PharmD Unavailable Reason for Referral * Consultation (Routine) - Closed Specialty Diagnoses / Procedures Referred By Contdelbert t Referred To Contact Physical Therapy Diagnoses Low back pain at multiple sites Gricel Daniel MD [address] [place] [address] Phone: tel: fax: Physical Therapy, AT [address] [place] [address] Dr Herrera Ennice [place] Phone: tel: fax: Referral ID Status Reason Start Date Expiration Date V isits Requested Visits Authorized [id number] Closed Specialty Services Required 03/22/2024 03/22/2025 20 20 Encounter Details Date Type Department Care Team (Late st Contact Info) Description 02/15/2024 Orders Only [facility] [address] [place], [place] [phone] Gricel Daniel MD [address] [place], [place] [phone] Low back pain at multiple sites (Primary [...] Description 06/19/2025 3:00 PM EST Medication Management [facility] [address] [place] [address] Kalina Coyle, Bisi [address] [place] [phone] 07/03/2025 9:45 AM EST Office Visit [facility] [address] [place] [address] Gricel Daniel MD [address] [place] [address] Scheduled Referrals Name Type Priority Associated Diagnoses Orde r Schedule Referral to Physical Therapy Outpatient Referral Routine Low back pain at multiple sites Expected: 02/27/2024 (Approximate), Expires: 02/26/2025 documented as of this encounter Goals Goal Patient Goal Type Associated Problems Recent Progress Patient-Stated? Author Drink less soda, juice, and other sugary beverages Diet No Kalina Coyle PharmJacqui Hemoglobin A1c < 7 Result Component 12.5(04/02/20 25 3:13 PM EDT) No Kalina Coyle PharmJacqui Record your blood sugar as directed Result Component No Kalina Coyle PharmD documented as of this encounter Visit Diagnoses Diagnosis Low back pain at multiple sites- Primary Constipation, unspecified constipation type documented in this encounter Additional Health Concerns Assessment Noted Time PHQ-9 Depression Total Score: 5 12/18/19 23 2:41 PM EDT documented as of this encounter Care Teams Multimedia Designer Relationship Specialty Start Date End Date Gricel Daniel MD [address] [place] [address] PCP - General Family Medicine 08/20/20 Kalina Coyle PharmD [address] [place] [address] Pharmacist Internal Medicine 12/08/23 documented as of this encounter
--- OUTSIDE RECORDS SUMMARY | 2025-06-08 12:39 | XMS_ITS | Encounter Summary ---
Author Organization [employer] Address [address] [facility] 7t [place] [address] Care Team Providers Care Plc Controls Engineer Name Role Phone Gricel Daniel MD Primary Care Provider [phone] Kalina Coyle PharmD Unavailable [phone] Encounter Details Date Type Department Care Team (Latest Contact Info) Description 06/07/2025 Travel Social History Tobacco Use Types Packs/Day Years [...] Description 06/19/2025 3:00 PM EST Medication Management [address] [address] PuiaKalina, PharmD [address] [place] [address] 07/03/2025 9:45 AM EST Office Visit [address] [address] Gricel Daniel MD [address] [place] [address] documented as of this encounter Goals Goal Patient Goal Type Associated Problems Recent Progress Patient-Stated? Author Drink less soda, juice, and other sugary beverages Diet No YosiiaKalina, PharmD Hemoglobin A1c < 7 Result Component 12.5(04/02/20 25 3:13 PM EDT) No Yosiia Kalina, PharmD Record your blood sugar as directed Result Component No Yosiia Kalina, PharmD Help patients manage their type [...] Weekly blood pressure task No Thompson Becerra, [place], [place] Weekly blood pressure task Care Plan Weekly blood pressure task No Thompson Becerra, [place], [place] Patient has chronic kidney disease Care Plan Patient has chronic kidney disease No Jay Becerra [place], [place] Patient has chronic kidney disease Care Plan Patient has chronic kidney disease No Thompson Becerra, [place], [place] documented as of this encounter Visit [...] documented as of this encounter Care Teams Plc Controls Engineer Relationship Specialty Start Date End Date Gricel Daniel MD [address] [place] [address] PCP - General Family Medicine 08/20/20 Kalina Coyle PharmD [address] [place] [address] Pharmacist Internal Medicine 12/08/23 documented as of this encounter
--- OUTSIDE RECORDS SUMMARY | 2025-06-08 12:39 | XMS_ITS | Encounter Summary ---
Author Organization [employer] Address [address] [place] [address] 7t [place] [address] Care Team Providers Care Tassel Snipper Name Role Phone Gricel Daniel MD Primary Care Provider [phone] Kalina Coyle PharmD Unavailable [phone] Reason for Visit * Reason Onset Date Comments Appointment Request 09/26/2024 Encounter Details Date Type Department Care Team ([facility] st Contact Info) Description 09/26/2024 Telephone [facility] [address] [place], [place] [phone] Gricel Daniel MD [address] [place], [place] [phone] Appointment Request Social History Tobacco Use Types [...] 3:00 PM EST Medication Management [facility] [address] [place] [address] Puia, Kalina, PharmD [address] [place] [address] 07/03/2025 9:45 AM EST Office Visit [facility] [address] [place] [address] Gricel Daniel MD [address] [place] [address] [phone] documented as of this encounter Goals Goal Patient Goal Type Associated Problems Recent Progress Patient-Stated? Author Drink less soda, juice, and other sugary beverages Diet No Puia, Kalina, PharmD Hemoglobin A1c < 7 Result Component 12.5(04/02/20 3:13 PM EDT) No Puia, Kalina, PharmD Record your blood sugar as directed Result Component No Kalina Coyle, PharmD documented as of this encounter Visit Diagnoses Not on filedocumented in this encounter Additional Health Concerns Assessment Noted Time PHQ-9 Depression Total Score: 5 12/18/19 23 2:41 PM EDT documented as of this encounter Care Teams Tassel Snipper Relationship Specialty Start Date End Date Gricel Daniel MD [address] [place] [address] PCP - General Family Medicine 08/20/20 Kalina Coyle, PharmD [address] [place] [address] Pharmacist Internal Medicine 12/08/23 documented as of this encounter
--- OUTSIDE RECORDS SUMMARY | 2025-06-08 12:39 | XMS_ITS | Encounter Summary ---
Author Organization [employer] Address [address] [facility] 7t [place] [address] Care Team Providers Care Credit Review Manager Name Role Phone Gricel Daniel MD Primary Care Provider [phone] Kalina Coyle PharmD Unavailable [phone] Reason for Visit * Reason Comments Med Refill Encounter Details Date Type Department Care Team ([facility] st Contact Info) Description 10/05/2023 Refill [facility] [address] [place], [place] [phone] Sammi Cortez MD [address] [place] [address] Type 2 diabetes mellitus with obesity ([facility]/HCC) ([facility]) Social History Tobacco Use [...] Description 06/19/2025 3:00 PM EST Medication Management [address] [address] Kalina Coyle PharmD [address] [place] [phone] 07/03/2025 9:45 AM EST Office Visit [address] [address] Gricel Daniel MD [address] [place] [phone] documented as of this encounter Visit Diagnoses Diagnosis Type 2 diabetes mellitus with obesity documented in this encounter Additional Health Concerns Assessment Noted Time PHQ-9 Depression Total Score: 5 12/18/19 23 2:41 PM EDT documented as of this encounter Care Teams Credit Review Manager Relationship Specialty Start Date End Date Gricel Daniel MD [address] [place] [address] [phone] PCP - General Family Medicine 08/20/20 Kalina Coyle PharmD [address] [place] [phone] Pharmacist Internal Medicine 12/08/23 documented as of this encounter
--- OUTSIDE RECORDS SUMMARY | 2025-06-08 12:39 | XMS_ITS | Encounter Summary ---
Author Organization [employer] Address [address] [place] [address] 7t [place] [address] Care Team Providers Care Reel Worker Name Role Phone Gricel Daniel MD Primary Care Provider [phone] Kalina Coyle PharmD Unavailable Reason for Referral * Consultation (Routine) - Authorized Specialty Diagnoses / Procedures Referred By Contac t Referred To Contact Pharmacy Diagnoses Type 2 diabetes mellitus with hyperglycemia, with long-term current use of insulin (HCC) Gricel Daniel MD [address] [place] [address] Phone: tel: fax: Referral ID Status Reason Start Date Expiration Date Visits Requested Visits Authorized [id number] Authorized Consult and Treat 04/03/2025 04/03/2026 6 6 Encounter Details Date Type Department Care Team (Late st Contact Info) Description 04/03/2025 Orders Only [facility] [address] [place] [address] Gricel Daniel MD [address] [place], [place] [phone] Type 2 diabetes mellitus with hyperglycemia, with long-term current use of insulin (HCC) (Primary Dx) Social History Tobacco Use Types [...] Description 06/19/2025 3:00 PM EST Medication Management [facility] [address] [place] [address] Kalina Coyle PharmD [address] [place] [address] 07/03/2025 9:45 AM EST Office Visit [facility] [address] [place] [address] Gricel Daniel MD [address] [place] [address] Scheduled Referrals Name Type Priority Associated Diagnoses Orde r Schedule Referral to Pharmacy CDTM Outpatient Referral Routine Type 2 diabetes mellitus with hyperglycemia, with long-term current use of insulin ([facility]) Ordered: 04/03/2025 documented as of this encounter Goals Goal [...] Diagnoses Diagnosis Type 2 diabetes mellitus with hyperglycemia, with long-term current use of insulin ([facility])- Primary documented in this encounter Additional Health Concerns Assessment Noted Time PHQ-9 Depression Total Score: 5 12/18/19 23 2:41 PM EDT documented as of this encounter Care Teams Reel Worker Relationship Specialty Start Date End Date Gricel Daniel MD [address] [place] [address] PCP - General Family Medicine 08/20/20 Kalina Coyle PharmD [address] [place] [address] Pharmacist Internal Medicine 12/08/23 documented as of this encounter
--- NOTE | 2025-06-08 12:41 | ED.BACK ---
HPI - Back Pain/Injury General Chief Complaint: Back Pain/Injury Stated Complaint: BACK PAIN Time Seen by Provider: 06/08/25 12:35 Source: patient, RN notes reviewed and old records reviewed Mode of arrival: ambulatory History of Present Illness ED Provider: Claudia Jimenez PA-C HPI Narrative: 25-year-old male with a past medical history bipolar, diabetes, PTSD, asthma, depression, anxiety, presenting to the ED complaining of acute on chronic upper and lower back pain x months. States he was seen in our ED, had x-rays however left prior to results due to feeling frustrated - states his mother read his chart to him yesterday and it stated he had herniated discs seen on x-ray, thus he came to the ED. Denies known injury, trauma, fall, numbness, tingling, weakness, incontinence/retention, hematuria/dysuria. Takes gabapentin at home with little relief Related Data Home Medications ?Medication ?Instructions ?Recorded ?Confirmed divalproex 500 mg tablet,delayed 500 mg PO DAILY 08/14/22 01/23/25 release divalproex 500 mg tablet,delayed 1,000 mg PO BEDTIME 02/19/23 01/23/25 release bupropion HCl 150 mg 24 hr tablet, 300 mg PO QAM depressive disorder 03/12/23 01/23/25 extended release fenofibrate micronized 43 mg 43 mg PO DAILY 03/12/23 01/23/25 capsule hydroxyzine HCl 50 mg tablet 50 mg PO TID PRN panic attack 03/12/23 01/23/25 insulin degludec 200 unit/mL (3 160 unit subcut DAILY 03/12/23 01/23/25 mL) subcutaneous pen (Tresiba FlexTouch U-200 insulin) lorazepam 1 mg tablet 1 mg PO BID PRN Anxiety 03/12/23 01/23/25 metformin 500 mg tablet,extended 1,000 mg PO BID 03/12/23 01/23/25 release 24 hr paliperidone palmitate 234 mg/1.5 234 mg IM QMONTH 03/12/23 01/23/25 mL intramuscular syringe (Invega Sustenna) prazosin 1 mg capsule 2 mg PO BEDTIME nightmares 03/12/23 01/23/25 rosuvastatin 20 mg tablet 20 mg PO DAILY 03/12/23 01/23/25 trazodone 150 mg tablet 150 mg PO BEDTIME PRN Insomnia 03/12/23 01/23/25 insulin aspart U-100 100 unit/mL 10 unit subcut BID 01/23/25 01/23/25 (3 mL) subcutaneous pen (Novolog FlexPen U-100 Insulin aspart) insulin degludec 200 unit/mL (3 160 unit subcut DAILY 01/23/25 01/23/25 mL) subcutaneous pen (Tresiba FlexTouch U-200 insulin) olanzapine 5 mg tablet (Zyprexa) 5 mg PO DAILY PRN Anxiety 01/23/25 01/23/25 paliperidone 3 mg tablet,extended 3 mg PO DAILY 01/23/25 01/23/25 release 24 hr (Invega) semaglutide 0.25 mg or 0.5 mg (2 0.25 mg subcut QWEEK 01/23/25 01/23/25 mg/3 mL) subcutaneous pen injector (Ozempic) semaglutide 0.25 mg or 0.5 mg (2 0.5 mg subcut QWEEK 01/23/25 01/23/25 mg/3 mL) subcutaneous pen injector (Ozempic) Previous Rx's ?Medication ?Instructions ?Recorded acetaminophen 500 mg tablet 500 mg PO Q6H PRN fever or pain 06/08/25 (Tylenol Extra Strength) #14 tabs cyclobenzaprine 5 mg tablet 5 mg PO Q8H PRN pain (scale score 06/08/25 7-10) 5 days #10 tabs lidocaine 5 % topical patch 1 patch topical DAILY PRN pain #30 06/08/25 (Lidoderm) ea naproxen 500 mg tablet 500 mg PO BID PRN pain 10 days #20 06/08/25 tabs Allergies Allergy/AdvReac Type Severity Reaction Status Date / Time No Known Allergies (No Known Allergy Verified 06/08/25 12:27 Allergies*) Review of Systems Review of Systems: Yes all other systems are reviewed and are negative Constitutional: Constitutional: Reports as per HPI Neurologic: Denies Sensory deficit (Neuro) [facility] Past Medical History Attestation statement: The following information was validated with the patient. 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 Diabetes type 2, uncontrolled Bipolar disorder with psychotic features PTSD (post-traumatic stress disorder) Concussion Asthma Depression Depression Bipolar disorder Anxiety Diabetes mellitus, type 2 Social History Social History Household Members: Family Household Members Other:: mom and sister Housing: Apartment Do you presently have visiting nurse or other home services: No Alcohol intake: current Alcohol intake frequency: holidays/special occasions only Alcohol type: beer, wine and hard liquor Patient Tobacco Use Status: Current everyday Tobacco user Tobacco use type: Cigarette and Smokeless Tobacco Cigarette Packs Per Day: 3 Cigarettes Per Day: 60.0 Years Smoked: 4 years e-Cigarette/Vaping Use: Currently Using Second Hand Smoke Exposure: Yes Substance Use Type: Caffiene Advance Directives: No Advance Directives Information Provided: No service: No Current occupational status: disabled 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 Sexual orientation: Decline to Answer Physical Exam Vital Signs: Vital Signs: Last Vital Signs Temp 96.7 F L 06/08/25 12:55 Pulse 101 H 06/08/25 12:55 Resp 20 06/08/25 12:55 BP 125/77 06/08/25 12:55 Pulse Ox 96 06/08/25 12:55 O2 Del Method Room Air 06/08/25 12:55 BMI result Body Mass Index 47.9 Const: General: cooperative, healthy appearing and no acute distress Orientation/consciousness: patient oriented x3 Limitations: no limitations HEENT: Head: Yes normal to inspection and Yes atraumatic Ears: hearing grossly normal bilaterally General nose exam: Normal external nose present Face and sinus: Yes normal facial exam Eyes: General: appearance normal, both eyes and all related structures EOM: EOMs intact bilaterally Neck: Neck: Yes normal visual inspection and Yes no meningeal signs Resp: Effort & Inspection: normal respiratory effort and no respiratory distress Cardio: Rate: regular rate GI: Inspection: Yes normal to inspection Palpation (GI): Soft to palpation, nontender, no guarding and not rigid : General: Yes no CVA tenderness Back/Spine/Pelvis: Other: No midline cervical/thoracic/lumbar spinous tenderness/step-off or deformity. + reproducible thoracic MSK and paraspinal tenderness. No reproducible lumbar tenderness. Back: no CVA tenderness Skin: Rashes: no rashes Wounds: no wounds Neuro: Other: Strength intact throughout. No saddle anesthesia. Sensation intact to light touch. Neurovascular intact distally General: patient oriented x3, gait normal, tone normal, moves all extremities and no meningeal signs Cranial nerves: Yes CN's II-XII intact bilaterally Gait exam (Neuro): Normal gait present Motor exam (neuro): 5/5 motor strength present throughout Sensory Exam: No Sensory deficit (Neuro) Extrem: General: Yes normal to inspection Medical Decision Making Medical Decision Making MDM Narrative: 25-year-old male with a past medical history bipolar, diabetes, PTSD, asthma, depression, anxiety, presenting to the ED complaining of acute on chronic upper and lower back pain x months. On exam mildly tachycardic with a heart rate of 101, NAD, nontoxic appearing, no midline spinous tenderness, no red flag symptoms. Physical exam as above. Patient had x-ray on 03/14/2025 showing stable and unremarkable exam. Concern for MSK pain/strain/spasming vs possible herniated disc. Low suspicion for cauda equina, cord compression, epidural abscess, osteomyelitis, renal stone or pyelo Plan: Pain control. Offered pain medication in the ED however patient would like prescription sent to pharmacy. Recommended close PCP follow-up Please refer to course for remaining clinical decision making, interpretation of labs/imaging results, and discussions with consultants and/or family members. Results discussed with patient including worrisome signs and symptoms and strict return precautions, and when to return to the emergency department. They verbalized understanding and feel safe for discharge at this time. Differential Diagnosis Differential Diagnoses: The differential diagnosis associated with the presentation includes As above Radiology Impression Discussion of test interpretation with radiology: I have reviewed the radiologist's reading. External Record Review External record reviewed: Inpatient record, Office record, Outpatient record, Prior outpatient labs, Prior outpatient radiology, Primary care record and Outside ED record Tests considered The following testing was considered but not selected: As above Prescription Management I considered prescription management with: Pain Medication Chronic Conditions Patient?s care impacted by: Other Social Determinants Patient?s care significantly limited by Social Determinants of Health including: Other Social Determinant of Health Discharge Plan Discharge Clinical Impression: Back pain Patient Disposition: Home, Self-Care Instructions: Back Pain (ED) Additional Instructions: You need to follow up with her primary care doctor Flexeril is a muscle relaxer, take at night as it makes you drowsy, do not drive, drink alcohol, or operate machinery while taking it Naproxen as an anti-inflammatory / pain medication, take with food Lidoderm patches are numbing patches, apply to painful area In addition take Tylenol at home If symptoms persist or worsen, pain becomes unbearable, you developed urinary retention or incontinence, or weakness return to the ED Prescriptions: New acetaminophen [Tylenol Extra Strength] 500 mg tablet 500 mg PO Q6H PRN (Reason: fever or pain) Qty: 14 0RF lidocaine [Lidoderm] 5 % adhesive patch,medicated 1 patch topical DAILY MDD remove after 12 hours PRN (Reason: pain) Qty: 30 0RF Rx Instructions: leave on most painful area for up to 12 hrs naproxen 500 mg tablet 500 mg PO BID PRN (Reason: pain) 10 Days Qty: 20 0RF cyclobenzaprine 5 mg tablet 5 mg PO Q8H PRN (Reason: pain (scale score 7-10)) 5 Days Qty: 10 0RF No Action divalproex 500 mg tablet,delayed release (DR/EC) 500 mg PO DAILY divalproex 500 mg tablet,delayed release (DR/EC) 1,000 mg PO BEDTIME prazosin 1 mg capsule 2 mg PO BEDTIME bupropion HCl 150 mg tablet extended release 24 hr 300 mg PO QAM Invega Sustenna 234 mg/1.5 mL syringe 234 mg IM QMONTH lorazepam 1 mg tablet 1 mg PO BID PRN (Reason: Anxiety) insulin degludec [Tresiba FlexTouch U-200] 200 unit/mL (3 mL) insulin pen 160 unit subcut DAILY hydroxyzine HCl 50 mg tablet 50 mg PO TID PRN (Reason: panic attack) trazodone 150 mg tablet 150 mg PO BEDTIME PRN (Reason: Insomnia) metformin 500 mg tablet extended release 24 hr 1,000 mg PO BID rosuvastatin 20 mg tablet 20 mg PO DAILY fenofibrate micronized 43 mg capsule 43 mg PO DAILY insulin aspart U-100 [Novolog FlexPen U-100 Insulin] 100 unit/mL (3 mL) Insulin Pen 10 unit SUBCUT BID paliperidone [Invega] 3 mg tablet extended release 24hr 3 mg PO DAILY Ozempic 0.25 mg or 0.5 mg (2 mg/3 mL) Pen Injector 0.5 mg SUBCUT QWEEK Ozempic 0.25 mg or 0.5 mg (2 mg/3 mL) Pen Injector 0.25 mg SUBCUT QWEEK Rx Instructions: for 4 weeks olanzapine [Zyprexa] 5 mg Tablet 5 mg PO DAILY PRN (Reason: Anxiety) insulin degludec [Tresiba FlexTouch U-200] 200 unit/mL (3 mL) insulin pen 160 unit subcut DAILY Referrals: Gricel Daniel MD [Primary Care Provider, Internal Medicine] - 1 week Interventions: ED Discharge Assessment Last Done: 06/08/25 12:55 Discharge Date/Time: 06/08/25 12:56 Print Language: Thai
--- NOTE | 2025-06-08 12:53 | PC.NURSE ---
patient guardian notified of patient dc from hospital.
[2025-06-08 12:55] VITALS: BP 125/77; PULSE 101; RESP 20; TEMP 35.9; O2SAT 96
== END 2025-06-08 12:56 | disposition home or self-care (01) ==
PROVIDERS: Emergency Provider Emergency Medicine; PCP General Practice
DX: M54.9 Dorsalgia, unspecified (principal); G89.29 Other chronic pain; E11.9 Type 2 diabetes mellitus without complications; J45.909 Unspecified asthma, uncomplicated; F31.81 Bipolar II disorder; Z79.4 Long term (current) use of insulin; Z79.899 Other long term (current) drug therapy
CPT/HCPCS: 99282; 99283

== ENCOUNTER 2025-06-21 15:50 | Outpatient (REF) | payer MEDICAID, SELFPAY ==
--- OUTSIDE RECORDS SUMMARY | 2025-06-21 15:15 | XMS_ITS | Encounter Summary ---
Author Organization [employer] Address [address] [place] [address] [address] [place] [address] Care Team Providers Care Wheel Cleaner Name Role Phone Gricel Daniel MD Primary Care Provider Kalina Coyle PharmD Unavailable [phone] Colleen Mart RN Unavailable [phone] Lesli De Jesus Unavailable Reason for Visit * Reason Comments Follow-up Encounter Details Date Type Department Care Team (Late st Contact Info) Description 06/21/2025 3:15 PM EST Office Visit [facility] [address] [place], [place] [phone] Gricel Daniel MD [address] [place], [place] [phone] Morbid obesity (CMS/HCC) (HCC) (Primary Dx) Social History Tobacco Use [...] Sign Reading Time Taken Comments Blood Pressure 118/60 06/21/2025 3:23 PM EST Pulse 106 06/21/2025 3:23 PM EST Temperature 36.3 C (97.4 F) 06/21/2025 3:23 PM EST Respiratory Rate 18 06/21/2025 3:23 PM EST Oxygen Saturation 97% 06/21/2025 3:23 PM EST Inhaled Oxygen Concentration - - Weight - - Height 175.3 cm (5' 9 ) 06/21/2025 3:23 PM EST Body Mass Index - - documented in this encounter Plan of Treatment Upcoming Encounters Date Type Department Care Team (Late st Contact Info) Description 07/25/2025 3:30 PM EST Medication Management [facility] [address] [place] [address] Kalina Coyle, PharmD [address] [place] [address] Scheduled Orders Name Type Priority Associated Diagnoses Orde r Schedule TSH W/Reflex to FT4 Lab Routine Morbid obesity (CMS/HCC) (HCC) Expected: 06/21/2025 (Approximate), Expires: 06/21/2026 Comprehensive Metabolic Panel Lab Routine Morbid obesity (CMS/HCC) (HCC) Expected: 06/21/2025 (Approximate), Expires: 06/21/2026 Magnesium Lab Routine Morbid obesity ([facility]) ([facility]) Expected: 06/21/2025, Expires: 06/21/2026 Vitamin B12/Folate, Serum Panel Lab Routine Morbid obesity ([facility]) ([facility]) Expected: 06/21/2025, Expires: 06/21/2026 CBC auto differential Lab Routine Morbid obesity ([facility]) ([facility]) Expected: 06/21/2025 (Approximate), Expires: 06/21/2026 Iron, TIBC And Ferritin Panel Lab Routine Morbid obesity ([facility]) ([facility]) Expected: 06/21/2025 (Approximate), Expires: 06/21/2026 Hemoglobin A1c Lab Routine Morbid obesity ([facility]) ([facility]) Expected: 06/21/2025 (Approximate), Expires: 06/21/2026 Albumin, Random Urine W/Creatinine Lab Routine Morbid obesity ([facility]) ([facility]) Expected: 06/21/2025 (Approximate), Expires: 06/21/2026 documented as of this encounter Goals Goal Patient Goal Type Associated Problems Recent Progress Patient-Stated? Author Drink less soda, juice, and other sugary beverages Diet No YosiiaFlorsa, PharmD Hemoglobin A1c < 7 Result Component 12.5(04/02/20 25 3:13 PM EDT) No Kalina Coyle, PharmD Record your blood sugar as directed Result Component No Knigston Coyleyssa, PharmD Help patients manage their type [...] Plan Weekly blood pressure task No Rogerio Hutr DMD Patient has chronic kidney disease Care Plan Patient has chronic kidney disease No Rogerio Hurt DMD Patient has chronic kidney disease Care Plan Patient has chronic kidney disease No Rogerio Hurt DMD Weekly blood pressure task Care Plan Weekly blood pressure task [facility] [place] Weekly blood pressure task Care Plan Weekly blood pressure task No [facility] [place] Patient has chronic kidney disease Care Plan Patient has chronic kidney disease [facility] [place] Patient has chronic kidney disease Care Plan Patient has chronic kidney disease No [facility] [place] Weekly blood pressure task Care Plan Weekly blood pressure task No Ora Fam, DEL[place] Weekly blood pressure task Care Plan Weekly blood pressure task No Ora Fam, RN Patient has chronic kidney disease Care Plan Patient has chronic kidney disease No Ora Fam, RN Patient has chronic kidney disease Care Plan Patient has chronic kidney disease No Ora Fam RN Weekly blood pressure task Care Plan Weekly blood pressure task No Ming Morales Weekly blood pressure task Care Plan Weekly blood pressure task No Ming Morales Patient has chronic kidney disease Care Plan Patient has chronic kidney disease No Ming Morales Patient has chronic kidney disease Care Plan Patient has chronic kidney disease No Ming Morales Weekly blood pressure task Care Plan Weekly blood pressure task No Colleen Mart RN Weekly blood pressure task Care Plan Weekly blood pressure task No Colleen Mart, DELMA Patient has chronic kidney disease Care Plan Patient has chronic kidney disease No Colleen Mart, DELMA Patient has chronic kidney disease Care Plan Patient has chronic kidney disease No Colleen Mart, [place] Weekly blood pressure task Care Plan Weekly blood pressure task No Lesli De Jesus Weekly blood pressure task Care Plan Weekly blood pressure task No Lesli De Jesus Patient has chronic kidney disease Care Plan Patient has chronic kidney disease No Lesli De Jesus Patient has chronic kidney disease Care Plan Patient has chronic kidney disease No Lesli De Jesus Weekly blood pressure task Care Plan Weekly blood pressure task No Lesli De Jesus Weekly blood pressure task Care Plan Weekly blood pressure task No Lesli De Jesus Patient has chronic kidney disease Care Plan Patient has chronic kidney disease No Lesli De Jesus Patient has chronic kidney disease Care Plan Patient has chronic kidney disease No Lesli De Jesus Weekly blood pressure task Care Plan Weekly blood pressure task No Carol Ann Diaz RN Weekly blood pressure task Care Plan Weekly blood pressure task No Carol Ann Diaz RN Patient has chronic kidney disease Care Plan Patient has chronic kidney disease No Carol Ann Diaz RN Patient has chronic kidney disease Care Plan Patient has chronic kidney disease No Carol Ann Diaz RN Weekly blood pressure task Care Plan Weekly blood pressure task No Lesli De Jesus Weekly blood pressure task Care Plan Weekly blood pressure task No Stephany De Jesusz Patient has chronic kidney disease Care Plan Patient has chronic kidney disease No Neal Lesli Patient has chronic kidney disease Care Plan Patient has chronic kidney disease No Neal Lesli Weekly blood pressure task Care Plan Weekly blood pressure task No Puia, Kalina, PharmD Weekly blood pressure task Care Plan Weekly blood pressure task No Puia Kalina, PharmD Patient has chronic kidney disease Care Plan Patient has chronic kidney disease No Puia, Kalina, PharmD Patient has chronic kidney disease Care Plan Patient has chronic kidney disease No Puia Kalina, PharmD Weekly blood pressure task Care Plan Weekly blood pressure task No Esperanza Grover MA Weekly blood pressure task Care Plan Weekly blood pressure task No Esperanza Grover [place] Patient has chronic kidney disease Care Plan Patient has chronic kidney disease No Esperanza Grover [place] Patient has chronic kidney disease Care Plan Patient has chronic kidney disease No Esperanza Grover [place] Weekly blood pressure task Care Plan Weekly blood pressure task No Gricel Daniel MD Weekly blood pressure task Care Plan Weekly blood pressure task No Gricel Daniel MD Patient has chronic kidney disease Care Plan Patient has chronic kidney disease No Gricel Daniel MD Patient has chronic kidney disease Care Plan Patient has chronic kidney disease No Gricel Daniel MD Weekly blood pressure task Care Plan Weekly blood pressure task No Alma Banks RN Weekly blood pressure task Care Plan Weekly blood pressure task No Alma Banks RN Patient has chronic kidney disease Care Plan Patient has chronic kidney disease No Alma Banks RN Patient has chronic kidney disease Care Plan Patient has chronic kidney disease No Alma Banks RN documented as of this encounter Visit Diagnoses Diagnosis Morbid obesity (CMS/HCC) (HCC)- Primary Morbid obesity documented in this encounter Additional Health [...] 06/07/2025 Patient has chronic kidney disease 06/07/2025 Weekly blood pressure task 06/10/2025 Weekly blood pressure task 06/10/2025 Patient has chronic kidney disease 06/10/2025 Patient has chronic kidney disease 06/10/2025 Weekly blood pressure task 06/10/2025 Weekly blood pressure task 06/10/2025 Patient has chronic kidney disease 06/10/2025 Patient has chronic kidney disease 06/10/2025 Weekly blood pressure task 06/10/2025 Weekly blood pressure task 06/10/2025 Patient has chronic kidney disease 06/10/2025 Patient has chronic kidney disease 06/10/2025 Weekly blood pressure task 06/10/2025 Weekly blood pressure task 06/10/2025 Patient has chronic kidney disease 06/10/2025 Patient has chronic kidney disease 06/10/2025 Weekly blood pressure task 06/10/2025 Weekly blood pressure task 06/10/2025 Patient has chronic kidney disease 06/10/2025 Patient has chronic kidney disease 06/10/2025 Weekly blood pressure task 06/11/2025 Weekly blood pressure task 06/11/2025 Patient has chronic kidney disease 06/11/2025 Patient has chronic kidney disease 06/11/2025 Weekly blood pressure task 06/11/2025 Weekly blood pressure task 06/11/2025 Patient has chronic kidney disease 06/11/2025 Patient has chronic kidney disease 06/11/2025 Weekly blood pressure task 06/19/2025 Weekly blood pressure task 06/19/2025 Patient has chronic kidney disease 06/19/2025 Patient has chronic kidney disease 06/19/2025 Weekly blood pressure task 06/20/2025 Weekly blood pressure task 06/20/2025 Patient has chronic kidney disease 06/20/2025 Patient has chronic kidney disease 06/20/2025 Weekly blood pressure task 06/21/2025 Weekly blood pressure task 06/21/2025 Patient has chronic kidney disease 06/21/2025 Patient has chronic kidney disease 06/21/2025 Weekly blood pressure task 06/21/2025 Weekly blood pressure task 06/21/2025 Patient has chronic kidney disease 06/21/2025 Patient has chronic kidney disease 06/21/2025 Assessment Noted Time PHQ-9 Depression Total Score: 5 12/18/19 23 2:41 PM EDT documented as of this encounter Care Teams Wheel Cleaner Relationship Specialty Start Date End Date Gricel Daniel MD [address] [place] [address] PCP - General Family Medicine 08/20/20 Kalina Coyle PharmD [address] [place] [address] Pharmacist Internal Medicine 12/08/23 Colleen Mart, DELMA [address] [place] [address] Registered Nurse Family Medicine 06/10/25 Lesli De Jesus 06/10/25 documented as of this encounter
--- OUTSIDE RECORDS SUMMARY | 2025-06-21 16:42 | XMS_ITS | Encounter Summary ---
Author Organization [employer] Address [address] [place] [address] [address] [place] [address] Care Team Providers Care Contract Processor Name Role Phone Gricel Daniel MD Primary Care Provider [phone] Kalina Coyle PharmD Unavailable [phone] Colleen Mart RN Unavailable Lesli De Jesus Unavailable Reason for Visit * Reason Comments Med Refill Encounter Details Date Type Department Care Team (Late st Contact Info) Description 10/05/2023 Refill [facility] [address] [place], [place] [phone] Sammi Cortez MD [address] [place], [place] [phone] Type 2 diabetes mellitus with obesity ([facility]/HCC) ([facility]) Social History Tobacco Use Types Packs/Day [...] Description 07/25/2025 3:30 PM EST Medication Management [facility] [address] [place] [address] Kalina Coyle PharmD [address] [place], [place] documented as of this encounter Visit Diagnoses Diagnosis Type 2 diabetes mellitus with obesity documented in this encounter Additional Health Concerns Assessment Noted Time PHQ-9 Depression Total Score: 5 12/18/19 23 2:41 PM EDT documented as of this encounter Care Teams Contract Processor Relationship Specialty Start Date End Date Gricel Daniel MD [address] [place] [id number] PCP - General Family Medicine 08/20/20 Kalina Coyle, PharmD [address] [place] [address] Pharmacist Internal Medicine 12/08/23 Colleen Mart, DELMA [address] [place] [id number] Registered Nurse Family Medicine 06/10/25 Lesli De Jesus 06/10/25 documented as of this encounter
--- OUTSIDE RECORDS SUMMARY | 2025-06-21 16:42 | XMS_ITS | Encounter Summary ---
Author Organization [employer] Address [address] [place] [address] 7t [place] [address] Care Team Providers Care Jaw Skinner Name Role Phone Gricel Daniel MD Primary Care Provider [phone] Kalina Coyle PharmD Unavailable [phone] Colleen Mart RN Unavailable [phone] Lesli De Jesus Unavailable Reason for Visit * Reason Onset Date Comments Chart Prep 06/20/2025 Encounter Details Date Type Department Care Team (Late st Contact Info) Description 06/20/2025 Telephone [facility] MEDICINE [address] [place], [place] [phone] Gricel Daniel MD [address] [place], [place] [phone] Chart Prep Social History Tobacco Use Types Packs/Day Years Used Date Smoking Tobacco: Every Day Cigarettes Passive Smoke Exposure: Current Smokeless Tobacco: Never Alcohol Use Standard Drinks/Week Comments Never 0 (1 standard drink = 0.6 oz pur e alcohol) Depression Answer Date Recorded Patient Health Questionnaire-9 Score 5 12/17/2022 Housing Stability Answer Date Recorded What is your housing situation today? I have queta sing 09/04/[address] you li [...] encounter Miscellaneous Notes * Telephone Encounter - Esperanza Grover [place] - 06/20/2025 10:46 AM EST Chart Prep Labs: done Images: done Referrals: appointment pending Vaccines due: Covid, Flu, PCV20, and Tdap Screenings: foot exam and PISQ Overdue care gaps: A1c, Glucose, and Oral health screening documented in this encounter Plan of Treatment Upcoming Encounters Date Type Department Care Team (Late st Contact Info) Description 07/25/2025 3:30 PM EST Medication Management [facility] MEDICINE [address] [place] [address] PuiaKalina, PharmD [address] [place] [address] documented as of this encounter Goals Goal [...] Care Plan Weekly blood pressure task No [place], [place] Weekly blood pressure task Care Plan Weekly blood pressure task No [place], [place] Patient has chronic kidney disease Care Plan Patient has chronic kidney disease No [place], [place] Patient has chronic kidney disease Care Plan Patient has chronic kidney disease No [place], [place] Weekly blood pressure task Care Plan Weekly blood pressure task No Ora Fam RN Weekly blood pressure task Care Plan Weekly blood pressure task No Ora Fam RN Patient has chronic kidney disease Care Plan Patient has chronic kidney disease No Ora Fam RN Patient has chronic kidney disease Care [...] blood pressure task No Colleen Mart RN Patient has chronic kidney disease Care Plan Patient has chronic kidney disease No Colleen Mart RN Patient has chronic kidney disease Care Plan Patient has chronic kidney disease No Colleen Mart RN Weekly blood pressure [...] blood pressure task No Puia, Kalina, PharmD Patient has chronic kidney disease Care Plan Patient has chronic kidney disease No Puia, Kalina, PharmD Patient has chronic kidney disease Care Plan Patient has chronic kidney disease No Puia, Kalina, PharmD Weekly blood pressure [...] chronic kidney disease No Esperanza Grover [place] documented as of this encounter Visit [...] 06/20/2025 Patient has chronic kidney disease 06/20/2025 Assessment Noted Time PHQ-9 Depression Total Score: 5 12/18/19 23 2:41 PM EDT documented as of this encounter Care Teams Jaw Skinner Relationship Specialty Start Date End Date Gricel Daniel MD [address] [place], [place] [phone] PCP - General Family Medicine 08/20/20 Kalina Coyle PharmD [address] [place], [place] [phone] Pharmacist Internal Medicine 12/08/23 Colleen Mart, DELMA [address] [place] [address] Registered Nurse Family Medicine 06/10/25 Lesli De Jesus 06/10/25 documented as of this encounter
--- OUTSIDE RECORDS SUMMARY | 2025-06-21 16:42 | XMS_ITS | Encounter Summary ---
Author Organization [employer] Address [address] [place] [address] 7t [place] [address] Care Team Providers Care Hot Sealing Machine Operator Name Role Phone Gricel Daniel MD Primary Care Provider Kalina Coyle PharmD Unavailable [phone] Colleen Mart RN Unavailable [phone] Lesli De Jesus Unavailable Reason for Visit * Reason Comments Med Refill Encounter Details Date Type Department Care Team (Late st Contact Info) Description 10/13/2023 Refill [facility] MEDICINE [address] [place], [place] [phone] Gricel Daniel MD [address] [place], [place] [phone] Type 2 diabetes mellitus with obesity ([facility]/HCC) ([facility]) Social History Tobacco Use [...] Description 07/25/2025 3:30 PM EST Medication Management [facility]INE [address] [place] [address] Kalina Coyle PharmD 230 [place] [address] documented as of this encounter Visit Diagnoses Diagnosis Type 2 diabetes mellitus with obesity documented in this encounter Additional Health Concerns Assessment Noted Time PHQ-9 Depression Total Score: 5 12/18/19 23 2:41 PM EDT documented as of this encounter Care Teams Hot Sealing Machine Operator Relationship Specialty Start Date End Date Gricel Daniel MD [address] [place] [address] PCP - General Family Medicine 08/20/20 Kalina Coyle, PharmD [address] [place] [address] Pharmacist Internal Medicine 12/08/23 Colleen Mart, DELMA [address] [place] [address] Registered Nurse Family Medicine 06/10/25 Lesli De Jesus 06/10/25 documented as of this encounter
--- OUTSIDE RECORDS SUMMARY | 2025-06-21 16:42 | XMS_ITS | Encounter Summary ---
Author Organization [employer] Address [address] [place] [address] 7t [place] [address] Care Team Providers Care Manager Basketball Name Role Phone Gricel Daniel MD Primary Care Provider Kalina Coyle PharmD Unavailable [phone] Colleen Mart RN Unavailable [phone] Lesli De Jesus Unavailable Reason for Visit * Reason Onset Date Comments Med Refill 09/26/2024 Encounter Details Date Type Department Care Team (Late st Contact Info) Description 09/26/2024 Telephone [facility] MEDICINE 230 [place], [place] [phone] Gricel Daniel MD 230 [place], [place] [phone] Med Refill Social History Tobacco Use Types [...] housing situation today? I have queta ponce 09/04/[address] you li [...] 2:11 PM EDT Medication was sent to [facility] with 5 refills please advise patient to call pharmacy and transfer script to [facility]. * Telephone Encounter - Vannessa Mcdaniel - 09/26/2024 2:08 PM EDT Images from the original note were not included. TC from pt requesting medication refill. Medications needing refill : insulin degludec (Tresiba FlexTouch) 200 UNIT/ML injection To be sent to: [facility] - [place], [place] - [address] documented in this encounter Plan of Treatment Upcoming Encounters Date Type Department Care Team (Late st Contact Info) Description 07/25/2025 3:30 PM EST Medication Management [facility]INE 230 [place] [address] Kalina Coyle, PharmD 230 [place], [place] [phone] documented as of this encounter Goals Goal [...] as of this encounter Care Teams Manager Basketball Relationship Specialty Start Date End Date Gricel Daniel MD [address] [place] [address] PCP - General Family Medicine 08/20/20 Kalina Coyle PharmD [address] [place] [address] Pharmacist Internal Medicine 12/08/23 Colleen Mart RN [address] [place] [address] Registered Nurse Family Medicine 06/10/25 Lesli De Jesus 06/10/25 documented as of this encounter
--- OUTSIDE RECORDS SUMMARY | 2025-06-21 16:42 | XMS_ITS | Encounter Summary ---
Author Organization [employer] Address [address] [place] [address] 7t [place] [address] Care Team Providers Care Oil And Gas Well Treatment Operator Name Role Phone Gricel Daniel MD Primary Care Provider [phone] Kalina Coyle PharmD Unavailable [phone] Colleen Mart RN Unavailable [phone] Lesli De Jesus Unavailable Reason for Visit * Reason Onset Date Comments Appointment Request 09/26/2024 Encounter Details Date Type Department Care Team (Late st Contact Info) Description 09/26/2024 Telephone [facility] MEDICINE 230 [place] [address] Gricel Daniel MD [address] [place], [place] [phone] Appointment Request Social History Tobacco Use Types [...] Description 07/25/2025 3:30 PM EST Medication Management [facility]INE [address] [place] [address] PuiaKingstonKalina, PharmD 230 [place] [address] documented as of this encounter Goals Goal Patient Goal Type Associated Problems Recent Progress Patient-Stated? Author Drink less soda, juice, and other sugary beverages Diet No Puia, Kalina, PharmD Hemoglobin A1c < 7 Result Component 12.5(04/02/20 25 3:13 PM EDT) No Puia, Kalina, PharmD Record your blood sugar as directed Result Component No Puia Kalina, PharmD documented as of this encounter Visit Diagnoses Not on filedocumented in this encounter Additional Health Concerns Assessment Noted Time PHQ-9 Depression Total Score: 5 12/18/19 23 2:41 PM EDT documented as of this encounter Care Teams Oil And Gas Well Treatment Operator Relationship Specialty Start Date End Date Gricel Daniel MD 230 [place] [address] PCP - General Family Medicine 08/20/20 Kalina Coyle PharmD 230 [place] [address] Pharmacist Internal Medicine 12/08/23 Colleen Mart, DELMA [address] [place] [address] Registered Nurse Family Medicine 06/10/25 Lesli De Jesus 06/10/25 documented as of this encounter
--- OUTSIDE RECORDS SUMMARY | 2025-06-21 16:42 | XMS_ITS | Encounter Summary ---
Author Organization [employer] Address [address] [facility] 7t [place] [address] Care Team Providers Care Timber Skidder Name Role Phone Gricel Daniel MD Primary Care Provider Kalina Coyle PharmD Unavailable [phone] Colleen Mart RN Unavailable [phone] Lesli De Jesus Unavailable Encounter Details Date Type Department Care Team (Latest Contact Info) Description 06/21/2025 Travel Social History Tobacco Use Types Packs/Day [...] Description 07/25/2025 3:30 PM EST Medication Management [facility] MEDICINE 230 [place] [address] Kalina Coyle, PharmD 230 [place] [address] documented as of this encounter Goals Goal Patient Goal Type Associated Problems Recent Progress Patient-Stated? Author Drink less soda, juice, and other sugary beverages Diet No YosiiaFlorsa, PharmD Hemoglobin A1c < 7 Result Component 12.5(04/02/20 25 3:13 PM EDT) No YosiiaKingstonKalina, PharmD Record your [...] Care Plan Weekly blood pressure task No Jay Becerra [place], [place] Weekly blood pressure task Care Plan Weekly blood pressure task No Jay Becerra [place], [place] Patient has chronic kidney disease Care Plan Patient has chronic kidney disease [facility] [place] Patient has chronic kidney disease Care Plan Patient has chronic kidney disease No [facility] [place] Weekly blood pressure task Care Plan [...] chronic kidney disease No Puia Kalina, PharmD Patient has chronic [...] Plan Weekly blood pressure task No Alma Banks, DELMA Patient has chronic kidney disease Care [...] documented as of this encounter Care Teams Timber Skidder Relationship Specialty Start Date End Date Gricel Daniel MD 230 [place] [address] PCP - General Family Medicine 08/20/20 Kalina Coyle PharmD [address] [place] [address] Pharmacist Internal Medicine 12/08/23 Colleen Mart, DELMA [address] [place] [address] Registered Nurse Family Medicine 06/10/25 Lesli De Jesus 06/10/25 documented as of this encounter
--- OUTSIDE RECORDS SUMMARY | 2025-06-21 16:42 | XMS_ITS | Encounter Summary ---
Author Organization [employer] Address [address] [facility] 7t [place] [address] Care Team Providers Care Legal Support Analyst Name Role Phone Gricel Daniel MD Primary Care Provider Kalina Coyle PharmD Unavailable [phone] Colleen Mart RN Unavailable [phone] Lesli De Jesus Unavailable Encounter Details Date Type Department Care Team (Late st Contact Info) Description 09/19/2023 Orders Only [facility] MEDICINE 230 [place], [place] [phone] Gricel Daniel MD 230 [place], [place] [phone] Chronic midline low back pain without sciatica [...] Description 07/25/2025 3:30 PM EST Medication Management [facility] [address] [place], [place] [phone] Kalina Coyle, PharmD 230 [place] [address] documented as of this encounter Procedures Procedure [...] AM EDT Narrative 12/27/2023 9:43 AM EDT [address] [address] XRay Report Signed Patient: Williams Fontanez MR#: [id number] 13 : 2000 Acct:[id number] Age/Sex: 23 / M ADM Date: 12/14/23 Loc: .[facility] Attending Dr: Gricel Daniel MD Ordering Physician: Gricel Daniel Date of Service: 12/14/23 Procedure(s): XR lumbar spine 4V min Accession Number(s): [id number] cc: Gricel Daniel EXAMINATION: XR LUMBOSACRAL SPINE [...] in OV> 12/27/23 0940 DD/ 1101 TD/TT: Planting Machine Crewman: Procedure Note Donotuseinterpreter, Image - 12/27/[address] [address] XRay Report Signed Patient: Williams Fontanez LMR#: [id number] [birth year] : 2000Acct:[id number] Age/Sex: 23 / MADM Date: 12/14/23 Loc: [facility] Attending Dr: Gricel Daniel MD Ordering Physician: Gricel Daniel Date of Service: 12/14/23 Procedure(s): XR lumbar spine 4V min Accession Number(s): [id number] cc: Gricel Daniel EXAMINATION: XR LUMBOSACRAL SPINE [...] in OV> 12/27/23 0940 DD/ 1101 TD/TT: Planting Machine Crewman: Gricel Daniel MD IMG XR PROCEDURES Edited Resul t - Final documented in this encounter Visit Diagnoses Diagnosis Chronic midline low back pain without sciatica- Primary documented in this encounter Additional Health Concerns Assessment Noted Time PHQ-9 Depression Total Score: 5 12/18/19 23 2:41 PM EDT documented as of this encounter Care Teams Legal Support Analyst Relationship Specialty Start Date End Date Gricel Daniel MD 230 [place] [address] PCP - General Family Medicine 08/20/20 Kalina Coyle PharmD [address] [place], [place] [phone] Pharmacist Internal Medicine 12/08/23 Colleen Mart, DELMA [address] [place] [address] Registered Nurse Family Medicine 06/10/25 Lesli De Jesus 06/10/25 documented as of this encounter
--- OUTSIDE RECORDS SUMMARY | 2025-06-21 16:43 | XMS_ITS | Encounter Summary ---
Author Organization [employer] Address [address] [place] [address] 7 [place] [address] Care Team Providers Care Vice President Consulting Services Name Role Phone Gricel Daniel MD Primary Care Provider [phone] Kalina Coyle PharmD Unavailable [phone] Colleen Mart RN Unavailable [phone] Lesli De Jesus Unavailable Reason for Referral * Consultation (Routine) - Authorized Specialty Diagnoses / Procedures Referred By Ruy pizano Referred To Contact Pharmacy Diagnoses Type 2 diabetes mellitus with hyperglycemia, with long-term current use of insulin (HCC) Gricel Daniel MD 230 [place] [address] Phone: tel: fax: Referral ID Status Reason Start Date Expiration Date Visits Requested Visits Authorized [id number] Authorized Consult and Treat 04/03/2025 04/03/2026 6 6 Encounter Details Date Type Department Care Team (Late st Contact Info) Description 04/03/2025 Orders Only [facility] MEDICINE 230 [place], [place] [phone] Gricel Daniel MD [address] [place], [place] [phone] Type 2 diabetes mellitus with hyperglycemia, with [...] Description 07/25/2025 3:30 PM EST Medication Management [facility] 230 [place] [address] Kalina Coyle, PharmD [address] [place] [address] Scheduled Referrals Name Type Priority Associated Diagnoses Orde r Schedule Referral to Pharmacy CDTM Outpatient Referral Routine Type 2 diabetes mellitus with hyperglycemia, with long-term current use of insulin ([facility]) Ordered: 04/03/2025 documented as of this encounter [...] hyperglycemia, with long-term current use of insulin (HCC)- Primary documented in this encounter Additional Health Concerns Assessment Noted Time PHQ-9 Depression Total Score: 5 12/18/19 23 2:41 PM EDT documented as of this encounter Care Teams Vice President Consulting Services Relationship Specialty Start Date End Date Gricel Daniel MD [address] [place] [address] PCP - General Family Medicine 08/20/20 Kalina Coyle PharmD [address] [place] [address] Pharmacist Internal Medicine 12/08/23 Colleen Mart, DELMA [address] [place] [address] Registered Nurse Family Medicine 06/10/25 Lesli De Jesus 06/10/25 documented as of this encounter
--- OUTSIDE RECORDS SUMMARY | 2025-06-21 16:43 | XMS_ITS | Encounter Summary ---
Author Organization [employer] Address [address] [facility] 7t [place] [address] Care Team Providers Care Back Up Machine Operator Name Role Phone Gricel Daniel MD Primary Care Provider [phone] Kalina Coyle PharmD Unavailable [phone] Colleen Mart RN Unavailable [phone] Lesli De Jesus Unavailable Encounter Details Date Type Department Care Team (Latest Contact Info) Description 06/19/2025 Travel Social History Tobacco Use Types Packs/Day [...] Description 07/25/2025 3:30 PM EST Medication Management [facility] MEDICINE 230 [place] [address] Kalina Coyle, PharmD [address] [place] [address] documented as of this encounter Goals Goal [...] Weekly blood pressure task No Jay Becerra [place], [place] Weekly blood pressure task Care Plan Weekly blood pressure task No Jay Becerra [place], [place] Patient has chronic kidney disease Care Plan Patient has chronic kidney disease [facility] [place] Patient has chronic kidney disease Care Plan Patient has chronic kidney disease [facility] [place] Weekly blood pressure task Care Plan [...] chronic kidney disease No Puia Kalina, PharmD documented as of [...] 06/19/2025 Patient has chronic kidney disease 06/19/2025 Assessment Noted Time PHQ-9 Depression Total Score: 5 12/18/19 23 2:41 PM EDT documented as of this encounter Care Teams Back Up Machine Operator Relationship Specialty Start Date End Date Gricel Daniel MD [address] [place], [place] [phone] PCP - General Family Medicine 08/20/20 Kalina Coyle PharmD [address] [place] [address] Pharmacist Internal Medicine 12/08/23 Colleen Mart RN [address] [place] [address] Registered Nurse Family Medicine 06/10/25 Lesli De Jesus 06/10/25 documented as of this encounter
--- OUTSIDE RECORDS SUMMARY | 2025-06-21 16:43 | XMS_ITS | Encounter Summary ---
Author Organization [employer] Address [address] [place] [address] 7t [place] [address] Care Team Providers Care Oracle Etl Developer Name Role Phone Gricel Daniel MD Primary Care Provider [phone] Kalina Coyle PharmD Unavailable [phone] Colleen Mart RN Unavailable [phone] Lesli De Jesus Unavailable Reason for Visit * Reason Comments Med Refill Encounter Details Date Type Department Care Team (Late st Contact Info) Description 05/13/2025 Refill [facility] MEDICINE 230 [place], [place] [phone] Gricel Daniel MD 230 [place], [place] [phone] Social History Tobacco Use Types Packs/Day Years [...] Description 07/25/2025 3:30 PM EST Medication Management [facility] MEDICINE 230 [place] [address] Puia, Kalina, PharmD 230 [place] [address] documented as of this encounter Goals Goal [...] documented as of this encounter Care Teams Oracle Etl Developer Relationship Specialty Start Date End Date Gricel Daniel MD 230 [place] [address] PCP - General Family Medicine 08/20/20 Puia, Kalina, PharmD 230 [place] [address] Pharmacist Internal Medicine 12/08/23 Colleen Mart, DELMA 230 [place] [address] Registered Nurse Family Medicine 06/10/25 Lesli De Jesus 06/10/25 documented as of this encounter
--- OUTSIDE RECORDS SUMMARY | 2025-06-21 16:43 | XMS_ITS | Encounter Summary ---
Author Organization [employer] Address [address] [place] [address] 7t [place] [address] Care Team Providers Care Laundry Tub Maker Name Role Phone Gricel Daniel MD Primary Care Provider [phone] Kalina Coyle PharmD Unavailable [phone] Colleen Mart RN Unavailable [phone] Lesli De Jesus Unavailable Reason for Referral * Consultation (Routine) - Closed Specialty Diagnoses / Procedures Referred By Ruy pizano Referred To Contact Pharmacy Diagnoses Type 2 diabetes mellitus with obesity Gricel Daniel MD [address] [place] [address] Phone: tel: fax: Referral ID Status Reason Start Date Expiration Date V isits Requested Visits Authorized [id number] Closed Consult and Treat 04/12/2024 04/12/2025 6 6 Encounter Details Date Type Department Care Team (Late st Contact Info) Description 04/12/2024 Orders Only [facility] MEDICINE 230 [place], [place] [phone] Gricel Daniel MD 230 [place], [place] [phone] Type 2 diabetes mellitus with obesity (CMS/HCC) [...] Medication Management [facility] MEDICINE [address] [place] [address] Kalina Coyle, PharmD [address] [place] [address] Scheduled Referrals Name Type Priority Associated Diagnoses [...] documented as of this encounter Care Teams Laundry Tub Maker Relationship Specialty Start Date End Date Gricel Daniel MD [address] [place] [address] PCP - General Family Medicine 08/20/20 Kalina Coyle, PharmD [address] [place] [address] Pharmacist Internal Medicine 12/08/23 Colleen Mart RN [address] [place] [address] Registered Nurse Family Medicine 06/10/25 Lesli De Jesus 06/10/25 documented as of this encounter
--- OUTSIDE RECORDS SUMMARY | 2025-06-21 16:43 | XMS_ITS | Encounter Summary ---
Author Organization [employer] Address [address] [place] [address] 7t [place] [address] Care Team Providers Care Recoating Machine Operator Name Role Phone Gricel Daniel MD Primary Care Provider Kalina Coyle PharmD Unavailable [phone] Colleen Mart RN Unavailable [phone] Lesli De Jesus Unavailable Reason for Visit * Reason Onset Date Comments Medication orders 06/21/2025 Encounter Details Date Type Department Care Team (Late st Contact Info) Description 06/21/2025 Telephone [facility] MEDICINE [address] [place] [address] Gricel Daniel MD [address] [place], [place] [phone] Medication orders Social History Tobacco Use Types Packs/Day Years [...] encounter Miscellaneous Notes * Telephone Encounter - Alma Banks RN - 06/21/2025 2:10 PM EST Noted. RN has generated order and faxed to [facility] as requested. Confirmation page received. ----- Message from Kailna Coyle sent at 06/19/2025 4:19 PM EST ----- Note is still in process but will you please send discontinuation order for metformin & order for new med start Synjardy XR 5-1000 mg two tablets daily with dinner to [facility]?? Thank you documented in this encounter Plan of Treatment Upcoming Encounters Date Type Department Care Team (Late st Contact Info) Description 07/25/2025 3:30 PM EST Medication Management [facility] MEDICINE [address] [place] [address] Kalina Coyle, PharmD [address] [place], [place] [phone] documented as of this encounter Goals Goal Patient Goal Type Associated Problems Recent Progress Patient-Stated? Author Drink less soda, juice, and other sugary beverages Diet No Kalina Coyle PharmD Hemoglobin A1c < 7 Result Component 12.5(04/02/20 25 3:13 PM EDT) No Kalina Coyle PharmD Record your blood sugar as directed Result Component No Kalina Coyle PharmD Help patients manage their type 2 [...] Care Plan Weekly blood pressure task No [place], [place] Weekly blood pressure task Care Plan Weekly blood pressure task No [place] Patient has chronic kidney disease Care Plan Patient has chronic kidney disease No [place] Patient has chronic kidney disease Care Plan Patient has chronic kidney disease No [place] Weekly blood pressure task Care Plan Weekly blood pressure task No Ora Fam RN Weekly blood pressure task Care Plan Weekly blood pressure task No Ora Fam, [place] Patient has chronic kidney disease Care Plan Patient has chronic kidney disease No Ora Fam, [place] Patient has chronic kidney disease Care [...] Weekly blood pressure task No Colleen Mart, RN Patient has chronic kidney disease Care [...] documented as of this encounter Care Teams Recoating Machine Operator Relationship Specialty Start Date End Date Gricel Daniel MD [address] [place] [address] PCP - General Family Medicine 08/20/20 Kalina Coyle PharmD [address] [place] [address] Pharmacist Internal Medicine 12/08/23 Colleen Mart RN [address] [place] [address] Registered Nurse Family Medicine 06/10/25 Lesli De Jesus 06/10/25 documented as of this encounter
--- OUTSIDE RECORDS SUMMARY | 2025-06-21 16:43 | XMS_ITS ---
Author Organization [employer] Address [address] [place] [address] 7t [place] [address] Care Team Providers Care Account Planner Name Role Phone Gricel Daniel MD Primary Care Provider [phone] Kalina Coyle PharmD Unavailable [phone] Colleen Mart RN Unavailable [phone] Lesli De Jesus Unavailable CH[facility] Complex Status:Enrolled (Active) Start date:06/10/2025 Enrollment date:06/11/2025 Enrollment reason:ADT Feed Overview ED- [place] [facility] [place]. Please outreach to patient. Case Team Name Relationship Phone Lesli De Jesus(Responsible Staff) Continued Care and Services Coordination
--- OUTSIDE RECORDS SUMMARY | 2025-06-21 16:43 | XMS_ITS | Encounter Summary ---
Author Organization [employer] Address [address] [facility] [address] [place] [address] Care Team Providers Care B2B Account Executive Name Role Phone Gricel Daniel MD Primary Care Provider Kalina Coyle PharmD Unavailable Colleen Mart RN Unavailable [phone] Lesli De Jesus Unavailable Reason for Referral * Consultation (Routine) - Closed Specialty Diagnoses / Procedures Referred By Ruy pizano Referred To Contact Physical Therapy Diagnoses Low back pain at multiple sites Gricel Daniel MD [address] [place] [address] Phone: tel: fax: Physical Therapy, AT [address] [facility] [address] [place], [place] Phone: tel: fax: Referral ID Status Reason Start Date Expiration Date V isits Requested Visits Authorized [id number] Closed Specialty Services Required 03/22/2024 03/22/2025 20 20 Encounter Details Date Type Department Care Team (Late st Contact Info) Description 02/15/2024 Orders Only [facility] MEDICINE [address] [place], [place] [phone] Gricel Daniel MD [address] [place], [place] [phone] Low back pain at multiple sites (Primary [...] Management [facility] MEDICINE [address] [place] [address] Kalina Coyle, PharmD [address] [place] [address] Scheduled Referrals Name Type Priority Associated Diagnoses [...] documented as of this encounter Care Teams B2B Account Executive Relationship Specialty Start Date End Date Gricel Daniel MD [address] [place] [address] PCP - General Family Medicine 08/20/20 Kalina Coyle PharmD [address] [place] [phone] Pharmacist Internal Medicine 12/08/23 Colleen Mart, DELMA [address] [place] [address] Registered Nurse Family Medicine 06/10/25 Lesli De Jesus 06/10/25 documented as of this encounter
--- OUTSIDE RECORDS SUMMARY | 2025-06-21 16:43 | XMS_ITS | Encounter Summary ---
Author Organization [employer] Address [address] [place] [address] 7t [place] [address] Care Team Providers Care Carpet Journeyman Name Role Phone Gricel Daniel MD Primary Care Provider [phone] Kalina Colye PharmD Unavailable [phone] Colleen Mart RN Unavailable [phone] Lesli De Jesus Unavailable Reason for Visit * Reason Comments Med Refill Encounter Details Date Type Department Care Team (Late st Contact Info) Description 06/11/2024 Refill [facility] MEDICINE [address] [place] [address] Kalina Coyle, PharmD [address] [place] [address] Type 2 diabetes mellitus with obesity ([facility]) ([facility]) Social History [...] Description 07/25/2025 3:30 PM EST Medication Management [facility] MEDICINE [address] [place] [address] Puia, Kalina, PharmD [address] [place] [address] documented as of this encounter Goals Goal [...] as of this encounter Care Teams Carpet Journeyman Relationship Specialty Start Date End Date Gricel Daniel MD [address] [place] [address] PCP - General Family Medicine 08/20/20 Puia, Kalian, PharmD [address] [place] [address] Pharmacist Internal Medicine 12/08/23 Colleen Mart, DELMA [address] [place] [address] Registered Nurse Family Medicine 06/10/25 Lesli De Jesus 06/10/25 documented as of this encounter
--- OUTSIDE RECORDS SUMMARY | 2025-06-21 16:43 | XMS_ITS ---
Author Organization [employer] Address [address] [place] [address] 7t [place] [address] Care Team Providers Care Wheel Worker Name Role Phone Gricel Daniel MD Primary Care Provider Kalina Coyle PharmD Unavailable [phone] Colleen Mart RN Unavailable [phone] Lesli De Jesus Unavailable CM Complex Status:Outreach In Progress (Enrolling) Start date:06/10/2025 Enrollment reason:ADT Feed Overview ED- Pt went [facility] on [place]/08[place]. Case Team Name Relationship Phone Colleen Mart RN(Responsible Staff) Registered Nurse Continued Care and Services Coordination
--- OUTSIDE RECORDS SUMMARY | 2025-06-21 16:43 | XMS_ITS | Encounter Summary ---
Author Organization [employer] Address [address] [place] [address] 7[address] [place] [address] Care Team Providers Care Theology Teacher Name Role Phone Gricel Daniel MD Primary Care Provider [phone] Kalina Coyle PharmD Unavailable Colleen Mart RN Unavailable [phone] Lesli De Jesus Unavailable Reason for Visit * Reason Onset Date Comments PT1 09/27/2022 Encounter Details Date Type Department Care Team (Late st Contact Info) Description 09/27/2022 Telephone [facility] MEDICINE [address] [place], [place] [phone] Gricel Daniel MD [address] [place], [place] [phone] PT1 Social History Tobacco Use Types Packs/Day [...] requesting a PT1 PT1 Name of facility: [facility] Specialty: Diabetes Appt Location: [address] [place] [address] Date: October 05, 2022 Time: 12:45 pm fax: n/a Phone: n/a wheelchair: n/a Home Economics Extension Worker: Yes documented in this encounter Plan of Treatment Upcoming Encounters Date Type Department Care Team (Late st Contact Info) Description 07/25/2025 3:30 PM EST Medication Management [facility] MEDICINE [address] [place] [address] Kalina Coyle PharmD [address] [place] [address] documented as of this encounter Visit Diagnoses Not on filedocumented in this encounter Care Teams Theology Teacher Relationship Specialty Start Date End Date Gricel Daniel MD [address] [place] [address] PCP - General Family Medicine 08/20/20 Kalina Coyle PharmD [address] [place] [address] Pharmacist Internal Medicine 12/08/23 Colleen Mart, DELMA [address] [place] [address] Registered Nurse Family Medicine 06/10/25 Lesli De Jesus 06/10/25 Layla Hubbard Transition Program Manager 06/15/23 09/14/23 documented as of this encounter
--- OUTSIDE RECORDS SUMMARY | 2025-06-21 16:43 | XMS_ITS | Encounter Summary ---
Author Organization [employer] Address [address] [facility] 7t [place] [address] Care Team Providers Care Timber Framer Helper Name Role Phone Gricel Daniel MD Primary Care Provider [phone] Kalina Coyle PharmD Unavailable [phone] Colleen Mart RN Unavailable [phone] Lesli De Jesus Unavailable Encounter Details Date Type Department Care Team (Late st Contact Info) Description 03/02/2024 Orders Only [facility] MEDICINE [address] [place], [place] [phone] Gricel Daniel MD [address] [place], [place] [phone] Muscle spasm (Primary Dx) Social History Tobacco [...] Description 07/25/2025 3:30 PM EST Medication Management [facility] MEDICINE [address] [place] [address] PuiaKingstonKalina, PharmD [address] [place] [address] documented as of this encounter Goals Goal [...] as of this encounter Care Teams Timber Framer Helper Relationship Specialty Start Date End Date Gricel Daniel MD [address] [place] [phone] PCP - General Family Medicine 08/20/20 Puia, Kalina, PharmD [address] [place] [phone] Pharmacist Internal Medicine 12/08/23 Colleen Mart RN [address] [place] [address] Registered Nurse Family Medicine 06/10/25 Lesli De Jesus 06/10/25 documented as of this encounter
--- OUTSIDE RECORDS SUMMARY | 2025-06-21 16:43 | XMS_ITS | Clinical Summary ---
Author Organization [employer] Address [address] [facility] 7t [place] [address] Care Team Providers Care Mba Internship Name Role Phone Gricel Daniel MD Primary Care Provider Kalina Coyle PharmD Unavailable [phone] Colleen Mart RN Unavailable [phone] Lesli De Jesus Unavailable Allergies Active Allergy Reactions Criticality Noted Date [...] 12 (twelve) hours. 1 each 024 Active Alcohol Swabs (Alcohol Prep) padsIndications :Type 2 diabetes mellitus with hypoglycemia without coma, with long-term current use of insulin (HCC) Use as directed 100 each Active fenofibrate [...] hyperglycemia, with long-term current use of insulin ([facility]) Inject under the skin 3 times daily. Use to check BG three times daily as directed 1 each Active glucose blood (FREESTYLE LITE) test stripIndication s:Type 2 diabetes mellitus with hyperglycemia, with long-term current use of insulin ([facility]) Use to check blood sugar three times daily (before breakfast, 2 hrs after lunch & 2 hrs after dinner) as directed. 100 each Active insulin degludec (Tresiba FlexTouch) 200 UNIT/ML injectionIndica tions:Type 2 diabetes mellitus with hyperglycemia, with long-term current use of insulin ([facility]) INJECT 160 UNITS SUBCUTANEOUSLY ONCE DAILY. ROTATE INJECTION SITE. 27 mL 1 Active insulin pen needle 32G x 4 mm miscIndications :Type 2 diabetes mellitus with hyperglycemia, with long-term current use of insulin ([facility]) Use to inject insulin up to 4 times daily 100 each Active Lancets miscIndications :Type 2 diabetes mellitus with hyperglycemia, with long-term current use of insulin ([facility]) Use to check blood sugar three times daily (before breakfast, 2 hrs after lunch & 2 hrs after dinner) as directed. 100 each Active traZODone (Desyrel) 150 MG tablet Take 150 mg by mouth if needed at bedtime. Active prazosin (Minipress) 2 MG capsule Take 2 mg by mouth at bedtime. Active OLANZapine (ZyPREXA) 5 MG tablet Take [...] morning & 2 tablets at bedtime. Active rosuvastatin (Crestor) 20 MG tablet TAKE 1 TABLET BY MOUTH EVERY DAY 90 tablet 3 Active gabapentin (Neurontin) 300 MG capsuleIndicati ons:Myalgia Take 2 capsules (600 mg) by mouth 2 times daily. 120 capsule 2 025 2025 Active empagliflozin-m etFORMIN ER (Synjardy XR) 5-1000 MG 24 hr tabletIndicatio ns:Type 2 diabetes mellitus with hyperglycemia, with long-term current use of insulin ([facility]) Take 2 tablets by mouth with evening meal. 60 tablet 5 Active insulin lispro (HumaLOG KWIKPEN) 100 UNIT/ML injectionIndica tions:Type 2 diabetes mellitus with hyperglycemia, with long-term current use of insulin ([facility]) Inject 20 units subQ twice daily with AM and PM meal. Do not use if meal is skipped. Active rosuvastatin (Crestor) 20 MG tablet TAKE 1 TABLET BY MOUTH EVERY DAY 90 tablet 3 024 2024 Discontinued naproxen (Naprosyn) 250 MG tabletIndicatio ns:Low back pain at multiple sites Take 1 tablet (250 mg) by mouth if needed in the morning and at bedtime (back pain). 60 tablet 3 024 2024 metFORMIN XR (Glucophage-XR) 500 MG 24 hr tabletIndicatio ns:Type 2 diabetes mellitus with hyperglycemia, with long-term current use of insulin ([facility]) Take 3 tablets (1,500 mg) by mouth with evening meal. 270 tablet 1 025 2024 Discontinued(A lternate therapy) gabapentin (Neurontin) 100 MG capsule TAKE 3 CAPSULES (300 MG) BY MOUTH 2 TIMES DAILY. 60 capsule 1 025 2024 Discontinued(R eorder (will not trigger notification to Pharmacy)) insulin lispro (HumaLOG KWIKPEN) 100 UNIT/ML injectionIndica tions:Type 2 diabetes mellitus with hyperglycemia, with long-term current use of insulin (HCC) Inject 24 units subQ twice daily with AM and PM meal. Do not use if meal is skipped. 15 mL 1 025 2024 Discontinued(R eorder (will not [...] EST): Letter written to have Flexeril at snf, permitted to take up to 3 tabs [...] (03/03/2023 10:11 AM EDT): I advise to pick up attendant medication for pain today and see if [...] EST): Uncontrolled A1C 14.0 Continue followup at [facility] awaiting PA for Tirzepatide Continue Tresiba 160 units Increase semaglutide to 7mg daily, scripts sent to [facility] on [address] Discussed trying to limit portion sizes, alternative choices to high sugar/high fat foods especially now that he is choosing his own foods more [facility] for [facility] Call podiatry to make appointment Assessment & Plan (07/13/2023 10:39 AM EST): Uncontrolled A1C 8.8 Continue followup at [facility] awaiting PA for Tirzepatide Continue Tresiba and [...] of using medications as prescribed to avoid cyber incident handler complications. We discussed about healthier food choices and increase physical activiy, he will probably start playing basketball in the spring. FU PCP in 4-6 weeks. Nonalcoholic fatty liver 08/17/2022 Severe bipolar disorder with psychotic features (CMS/HCC) 09/15/2020 Assessment & Plan (07/13/2023 10:39 AM EST): Continue psych followup and medication titration He seems to be doing well in the snf setting Assessment & Plan (03/03/2023 10:10 AM EDT): C/w same medication regimen, he will f/u today at [facility] medication refills and adjustments done by specialist [...] reduction and f/u with PCP Influenza-like symptoms 08/27/2022/01/2025 Suspected COVID-19 virus infection 08/27/2022 11/27/2024 Encounters Date Type Department Care Team Description 06/21/2025 3:15 PM EST Office Visit [address] [address] Gricel Daniel MD Morbid obesity (CMS/HCC) (HCC) (Primary Dx) 06/21/2025 Travel 06/21/[address] [address] Gricel Daniel MD Medication orders 06/20/[address] [address] Gricel Daniel MD Chart Prep 06/19/2025 Travel 06/11/2025 Patient Outreach [address] [address] Gricel Daniel MD Care Coordination (C3 -[facility] telephone call outreach) 06/10/2025 Patient Outreach [address] [address] Gricel Daniel MD 06/10/2025 Patient Outreach [address] [address] Gricel Daniel MD Care Coordination (C3 -[facility] chart review/) 06/10/2025 Patient Outreach [address] [address] Gricel Daniel MD Care Management ([facility] -CHART REVIEW/) 06/10/[address] [address] Gricel Daniel MD Nurse Triage 06/10/2025 Patient Outreach [address] [address] Gricel Daniel MD 06/07/2025 11:00 AM EST Office Visit [facility] [address] [place] [phone] Charles Wood MD Myalgia (Primary Dx) 06/07/2025 Travel 06/04/2025 Orders Only [facility] ADULT DENTAL [address] [facility] [place] [address] Rogerio Hurt, EVELYN 05/28/2025 Refill [facility] MEDICINE [address] [place] [address] Gricel Daniel MD 05/27/2025 Refill [facility] [address] [place] [address] Gricel Daniel MD 05/27/2025 Refill [facility] [address] [place] [address] Gricel Daniel MD Left shoulder pain, unspecified chronicity 05/13/2025 Refill [facility] [address] [place] [address] Gricel Daniel MD 05/08/2025 Telephone [facility] [address] [place] [address] Gricel Daniel MD Medication Orders 05/07/2025 Travel 04/22/2025 Refill [facility] [address] [place] [address] Gricel Daniel MD Type 2 diabetes mellitus in patient with obesity (HCC) 04/16/2025 Telephone [facility] [address] [place] [address] Gricel Daniel MD No Show 04/15/2025 Telephone [facility] [address] [place] [address] Gricel Daniel MD Chart Prep 04/05/2025 9:00 AM EDT Office Visit [facility] OPTOMETRY [address] [place] [address] Mike, Leanne, OD Myopia of both eyes (Primary Dx) 04/03/2025 Orders Only [facility] [address] [place] [address] Gricel Daniel MD Type 2 diabetes mellitus with hyperglycemia, with long-term current use of insulin (HCC) (Primary Dx) 04/02/2025 Telephone [facility] [address] [place] [address] Gricel Daniel MD Metformin medication order 04/02/2025 Telephone [facility] [address] [place] [phone] Kalina Coyle, PharmD 04/02/2025 Travel from Last 3 Months Immunizations Immunization Administration [...] EST Height 175.3 cm (5' 9 ) 06/21/2025 3:23 PM EST Body Mass Index 47.85 01/21/2025 1:02 PM EDT Plan of Treatment Upcoming Encounters Date Type Department Care Team (Late st Contact Info) Description 07/25/2025 3:30 PM EST Medication Management [facility] [address] [place], [place] [phone] Kalina Coyle, PharmD [address] [place] [address] Health Maintenance Due Date Last Done Comments [...] 04/24/2018, Additional history exists Diabetes: Hemoglobin A1C 07/02/2025 025, 11/01/2024, 03/21/2024, Additional history exists Diabetes: Urine Protein Screening 08/23/2025 08/23/2024, 08/23/2024, 12/14/2023 Depression Screening 11/15/2025 11/15/2024, 12/18/19 23 SDOH Screening 11/16/2025 11/16/2024 Alcohol/Substance Use Screening 01/14/2026 01/14/2025 Disability Screening 01/14/2026 01/14/2025 Tobacco Screening 06/21/2026 06/21/2025 Dental X-Ray: Full Mouth 10/06/2026 10/06/2023, 08/0 07/2013 Eye Exam 02/13/2027 02/13/2025, 02/01, 02/13/2025, Additional [...] juice, and other sugary beverages Diet No Yosiia, Kalina, PharmD Hemoglobin A1c < 7 Result Component 12.5(04/02/20 3:13 PM EDT) No Jonna, Kalina, PharmD Record your blood sugar as directed Result Component No Yosiia, Kalina, PharmD Help patients manage their type [...] Care Plan Weekly blood pressure task [facility] [place] Weekly blood pressure task Care Plan Weekly blood pressure task No [facility] Patient has chronic kidney disease Care Plan Patient has chronic kidney disease No [place] Patient has chronic kidney disease Care Plan Patient has chronic kidney disease [facility] [place] Weekly blood pressure task Care Plan [...] blood pressure task No Colleen Mart, DELMA Weekly blood pressure task Care Plan Weekly blood pressure task No Colleen Mart, DELMA Patient has chronic kidney disease Care Plan Patient has chronic kidney disease No Colleen Mart, DELMA Patient has chronic kidney disease Care Plan Patient has chronic kidney disease No Colleen Mart, RN Weekly blood pressure task Care Plan [...] blood pressure task No Puia Kalina, PharmD Weekly blood pressure [...] Plan Patient has chronic kidney disease No Espreanza Grover [place] Weekly blood pressure task Care [...] Plan Patient has chronic kidney disease No Banks, Alma, speech coach Procedure Name Priority Date/Time Associated Diagnosis Comments POCT GLYCATED HEMOGLOBIN, TOTAL Routine 04/02/2025 3:13 PM EDT Type 2 diabetes mellitus with hyperglycemia, with long-term current use of insulin ([facility]/HCC) ALBUMIN, RANDOM URINE W/CREATININE Routine 08/23/2024 11:13 AM EST Type 2 diabetes mellitus with obesity (CMS/HCC) ([facility]) LIPID PANEL, STANDARD Routine 12/14/2023 10:17 AM EDT Type 2 diabetes mellitus with hyperglycemia, with long-term current use of insulin (CMS/HCC) PANORAMIC RADIOGRAPHIC IMAGE Routine 10/06/2023 8:30 AM [...] Final Result * Albumin, Random Urine W/Creatinine (08/23/2024 11:13 AM EST) Creatinine, Urine 35.61 mg/dL [facility] Microalbumin Urine 5.0 mg/L [facility] Microalbum Creatinine Ratio Ur 14.0 <30 ug/mg cr [facility] Comment:Albumin/Creatinine R atio Reference Ranges: Normal: < 30 ug/mg creatinine Microalbuminuria: 30 - 300 ug/mg creatinineClinical Albuminuria: > 300 ug/mg creatinine Urine (Urine, Random) 08/23/2024 11:13 AM EST 08/23/2024 1:11 PM EST us Gricel Daniel MD LAB URINE ORDERABLES Final Res ult Performing Organization Address City/[facility]/ZIP Co de Phone Number [facility] [address] [place] [address] [phone] * (ABNORMAL) Lipid Panel, Standard (12/14/2023 10:17 AM EDT) Triglycerides 121 <150 mg/dL [facility] Comment:Desirable Triglyceri de: less than 150 mg/dLBorderline High Triglyceride 150-199 mg/dLHigh Triglyceride: 200-499 mg/dLVery High Triglyceride: greater than or equal to 5OO mg/dL Cholesterol 126 <200 mg/dL [facility] Comment:Desirable Cholestero l: less than 200 mg/dLBorderline High Cholesterol: 200-239 mg/dLHigh Cholesterol: greater than 239 mg/dL LDL Cholesterol Calculated 71 <100 mg/dL [facility] Comment:Desirable LDL: less than 100 mg/dLNear Optimal/Above Optimal LDL: 110- 129 mg/dLBorderline High LDL: 130-159 mg/dLHigh LDL: 160-189 mg/dLVery High LDL: greater than or equal to 190 mg/dL HDL Cholesterol 31(L) >40 mg/dL [facility] Comment:Desirable HDL: great er than 40 mg/dL Note: This HDL assay may give artificially low results in patients with liver disease. Blood Venous blood specimen / Unknown 12/14/2023 10:17 AM EDT 12/14/2023 11:15 AM EDT us Gricel Daniel MD LAB BLOOD ORDERABLES Final Res ult [facility] [address] [place] [address] [phone] * HEPATITIS C AB W/REFL TO HCV RNA, QN, PCR (01/20/2022 3:57 PM EDT) HEPATITIS C ANTIBODY NON-REACT TAQUERIA NON-REACT TAQUERIA [facility] INDEX 0.10 <1.00 [facility] Comment: HCV antibody was non-reactive. There is no laboratory evidence of HCV infection. In most cases, no further action is required. However, if recent HCV exposure is suspected, a test for HCV RNA (test code 38231) is suggested. For additional information please refer to http://Socialinus.Kahuna/faq/TFN45x7 (This link is being provided for informational/ educational purposes only.) 01/20/2022 3:57 PM EDT [facility] BOOM MASTER HISTORICAL/NON ORDERABLE LABS Final Result Performing Organization Address City/[facility] Co de Phone Number [facility] [address] * HIV 1/2 ANTIGEN/ANTIBODY,FOURTH GENERATION W/RFL (01/20/2022 3:57 PM EDT) HIV-1/2 ANTIGEN AND ANTIBODIES, 4TH GENERATION W/ REFLEX NON-REACT TAQUERIA NON-REACT TAQUERIA [facility] Comment: HIV-1 antigen and HIV-1/HIV-2 [...] purpose. For additional information please refer to http://Socialinus.Kahuna/faq/YUL237 (This link is being provided for informational/ educational purposes only.) The performance of this assay has not been clinically validated in patients less than 2 years old. 01/20/2022 3:57 PM EDT [facility] LAB BLOOD ORDERABLES Final Re sult [facility] [address] from Last 3 Months or Most [...] 06/21/2025 Patient has chronic kidney disease 06/21/2025 Insurance [facility] C3 DENTAL-[facility] [place] [address] Care Teams Mba Internship Relationship Specialty Start Date End Date Gricel Daniel MD [address] [place] [phone] PCP - General Family Medicine 08/20/20 Kalina Coyle, Bisi [address] [place] [phone] Pharmacist Internal Medicine 12/08/23 Colleen Mart, DELMA [address] [place] [phone] Registered Nurse Family Medicine 06/10/25 Lesli De Jesus 06/10/25
--- OUTSIDE RECORDS SUMMARY | 2025-06-21 16:43 | XMS_ITS | Encounter Summary ---
Author Organization [employer] Address [address] [place] [address] [address] [place] [address] Care Team Providers Care Calibration Tester Name Role Phone Gricel Daniel MD Primary Care Provider Kalina Coyle PharmD Unavailable Colleen Mart RN Unavailable [phone] Lesli De Jesus Unavailable Encounter Details Date Type Department Care Team (Late Contact Info) Description 08/19/2022 Orders Only [facility] MEDICINE [address] [place] [phone] Sammi Cortez MD [address] [place], [place] [phone] Type 2 diabetes mellitus with obesity (CMS/HCC) [...] Encounters Date Type Department Care Team (Late Contact Info) Description 07/25/2025 3:30 PM EST Medication Management [facility] [address] [place] [phone] Kalina Coyle PharmD [address] [place] [address] documented as of this encounter Visit Diagnoses Diagnosis Type 2 diabetes mellitus with obesity- Primary documented in this encounter Care Teams Calibration Tester Relationship Specialty Start Date End Date Gricel Daniel MD [address] [place] [address] PCP - General Family Medicine 08/20/20 Kalina Coyle, PharmD [address] [place], [place] [phone] Pharmacist Internal Medicine 12/08/23 Colleen Mart RN [address] [place] [phone] Registered Nurse Family Medicine 06/10/25 Lesli De Jesus 06/10/25 Layla Hubbard Drilling Assistant 06/15/23 09/14/23 documented as of this encounter
[2025-06-21 16:55] LABS: MANUAL DIFF FLAG NO
[2025-06-21 17:01] LABS: Hematocrit 47.6 % (42.0-52.0); Hemoglobin 16.5 g/dl (14.0-18.0); Imm Gran Abs Auto 0.08 X10*3/uL (0.00-0.03); Imm Gran Pct Auto 0.6 % (0.0-0.4); Lymphocytes Absolute Auto 3.8 X10*3/uL (1.2-4.9); Mean Corpuscular HGB Conc 34.7 g/dl (31.0-36.0); Mean Corpuscular Hemoglobin 29.1 pg (27.0-33.0); Mean Corpuscular Volume 84.0 fL (80.0-98.0); NRBC Abs Auto 0.000 X10*3/uL (0.0-0.012); NRBC Pct Auto 0.0 /100WBC (0.0-0.2); Platelet Count 247 X10*3/uL (160-400); Red Blood Count 5.67 X10*6/uL (4.60-5.80); White Blood Count 13.1 X10*3/uL (4.8-10.8)
[2025-06-21 18:36] LABS: Folate 10.6 ng/mL (> or = 4.0); Vitamin B12 900 pg/mL (200-900)
[2025-06-21 18:48] LABS: Alanine Aminotransferase 22 U/L (0-40); Albumin Level 4.4 g/dL (3.5-5.0); Alkaline Phosphatase 97 U/L (39-117); Anion Gap 14 (12-20); Aspartate Amino Transferase 17 U/L (5-37); Blood Urea Nitrogen 8 mg/dL (9-16); Calcium 9.6 mg/dL (8.4-10.2); Carbon Dioxide 23 mmol/L (22-29); Chloride 103 mmol/L (96-108); Cholesterol 149 mg/dL (<200); Estimated Glomerular Filt Rate > 60; HDL Cholesterol 23 mg/dL (>40); Magnesium 1.8 mg/dL (1.6-2.6); Potassium 3.7 mmol/L (3.3-5.1); Sodium 136 mmol/L (135-145); Total Protein 7.3 g/dL (6.5-8.0); Triglycerides 460 mg/dL (<150)
== END 2025-06-21 15:51 | disposition home or self-care (01) ==
LOC: HO.HHCL 15:50
PROVIDERS: PCP General Practice; Visit Provider General Practice
DX: E11.8 Type 2 diabetes mellitus with unspecified complications (principal); E66.01 Morbid (severe) obesity due to excess calories
CPT/HCPCS: 36415; 80053; 80061; 82607; 82746; 83036; 83735; 84443; 85025